=== PATIENT | male | born 1965 | race American Indian/Alaskan Native ===

== ENCOUNTER 2018-01-11 09:10 | Emergency (ER) | payer MEDICAID ==
[2018-01-11] MEDS ORDERED: NACL 0.9% 1000 ML 1,000 ML IV ONE (10:21)
--- NOTE | 2018-01-11 10:36 | Emergency Department Report ---
ED Dizziness HPI - General Chief Complaint: Dizziness Stated Complaint: FELL ON FACE YESTERDAY/GLF Time Seen by Provider: 01/11/18 09:54 Source: patient, EMS Mode of arrival: Stretcher Limitations: Physical Limitation - History of Present Illness Initial Comments: 52-year-old male with past medical history of diabetes hypertension history of previous stroke about 2 years ago got dizzy yesterday and fell and hit his face. Per patient he did not lose consciousness. Patient is under no acute distress. Patient states that he is dizzy at times. No alleviating or exacerbating factors. He states that he feels like his meds make him dizzy. Patient denies any nausea vomiting chest pain shortness of breath denies any fever or chills. MD Complaint: dizziness -: Gradual, week(s) Timing: gradual onset History of Same: Yes Severity: mild Improves With: nothing Worsens With: nothing Associated Symptoms: denies other symptoms - Related Data Home Medications Medication Instructions Recorded Confirmed Last Taken ALBUTEROL NEB's [Proventil] 2.5 mg IH TID PRN 02/07/16 02/07/16 Unknown Alendronate Sodium [Fosamax] 70 mg PO QWEEK 02/07/16 02/07/16 Unknown Aspirin [Aspirin BABY CHEW TAB] 81 mg PO QDAY 02/07/16 02/07/16 02/06/16 Atenolol [Tenormin] 100 mg PO DAILY 02/07/16 02/07/16 02/06/16 Citalopram Hydrobromide [celeXA] 20 mg PO DAILY 02/07/16 02/07/16 02/06/16 Docusate Sodium [Colace] 100 mg PO BID PRN 02/07/16 02/07/16 Unknown Lisinopril [Zestril TAB] 10 mg PO QDAY 02/07/16 02/07/16 02/06/16 Loratadine [Claritin] 10 mg PO DAILY 02/07/16 02/07/16 02/06/16 Metformin HCl [Glucophage] 850 mg PO BID 02/07/16 02/07/16 02/07/16 Omeprazole [PriLOSEC] 20 mg PO QDAY 02/07/16 02/07/16 02/06/16 Tamsulosin [Flomax] 0.4 mg PO QDAY 02/07/16 02/07/16 02/06/16 oxyCODONE /ACETAMINOPHEN [Percocet 1 tab PO Q6HR PRN 02/07/16 02/07/16 Unknown 5/325] Previous Rx's Medication Instructions Recorded Last Taken Type Ciprofloxacin HCl [Ciprofloxacin 500 mg PO Q12H #14 tab 02/07/16 Unknown Rx TAB] Meclizine [Antivert] 12.5 mg PO BID PRN #24 tablet 01/11/18 Unknown Rx Allergies Allergy/AdvReac Type Severity Reaction Status Date / Time No Known Allergies Allergy Unverified 02/07/16 02:00 ED Review of Systems ROS: Stated complaint: FELL ON FACE YESTERDAY/GLF Other details as noted in HPI Constitutional: denies: chills, fever Eyes: denies: eye pain, eye discharge, vision change ENT: denies: ear pain, throat pain Respiratory: denies: cough, shortness of breath, wheezing Cardiovascular: denies: chest pain, palpitations Endocrine: no symptoms reported Gastrointestinal: denies: abdominal pain, nausea, diarrhea Genitourinary: denies: urgency, dysuria Musculoskeletal: denies: back pain, joint swelling, arthralgia Skin: denies: rash, lesions Neurological: denies: headache, weakness, paresthesias Psychiatric: denies: anxiety, depression Hematological/Lymphatic: denies: easy bleeding, easy bruising ED Past Medical Hx - Past Medical History Hx Hypertension: Yes Hx CVA: Yes Hx Diabetes: Yes Hx COPD: Yes - Social History Smoking Status: Former Smoker - Medications Home Medications: Home Medications Medication Instructions Recorded Confirmed Last Taken Type ALBUTEROL NEB's [Proventil] 2.5 mg IH TID PRN 02/07/16 02/07/16 Unknown History Alendronate Sodium [Fosamax] 70 mg PO QWEEK 02/07/16 02/07/16 Unknown History Aspirin [Aspirin BABY CHEW TAB] 81 mg PO QDAY 02/07/16 02/07/16 02/06/16 History Atenolol [Tenormin] 100 mg PO DAILY 02/07/16 02/07/16 02/06/16 History Ciprofloxacin HCl [Ciprofloxacin 500 mg PO Q12H #14 tab 02/07/16 Unknown Rx TAB] Citalopram Hydrobromide [celeXA] 20 mg PO DAILY 02/07/16 02/07/16 02/06/16 History Docusate Sodium [Colace] 100 mg PO BID PRN 02/07/16 02/07/16 Unknown History Lisinopril [Zestril TAB] 10 mg PO QDAY 02/07/16 02/07/16 02/06/16 History Loratadine [Claritin] 10 mg PO DAILY 02/07/16 02/07/16 02/06/16 History Metformin HCl [Glucophage] 850 mg PO BID 02/07/16 02/07/16 02/07/16 History Omeprazole [PriLOSEC] 20 mg PO QDAY 02/07/16 02/07/16 02/06/16 History Tamsulosin [Flomax] 0.4 mg PO QDAY 02/07/16 02/07/16 02/06/16 History oxyCODONE /ACETAMINOPHEN [Percocet 1 tab PO Q6HR PRN 02/07/16 02/07/16 Unknown History 5/325] Meclizine [Antivert] 12.5 mg PO BID PRN #24 tablet 01/11/18 Unknown Rx ED Physical Exam - General Limitations: Physical Limitation General appearance: alert - Head Head exam: Present: atraumatic, normocephalic - Eye Eye exam: Present: normal appearance - ENT ENT exam: Present: normal exam - Neck Neck exam: Present: normal inspection - Respiratory Respiratory exam: Present: normal lung sounds bilaterally - Cardiovascular Cardiovascular Exam: Present: regular rate - GI/Abdominal GI/Abdominal exam: Present: soft - Rectal Rectal exam: Present: deferred - Extremities Exam Extremities exam: Present: normal inspection - Neurological Exam Neurological exam: Present: alert - Expanded Neurological Exam Expanded Patient oriented to: Present: person, place, time Speech: Present: fluid speech Cranial nerves: EOM's Intact: Normal, Gag Reflex: Normal, Tongue Deviation: Normal, Nystagmus: Normal, Facial Sensation: Normal, Facial Palsy with Forehead Movement: Normal, Facial Palsy without Forehead Movement: Normal Cerebellar function: Finger to Nose: Normal, Heel to Lauren: Normal, Romberg: Normal Motor strength exam: RUE: 5, LUE: 5, RLE: 5, LLE: 5 Best Eye Response (Bon): (4) open spontaneously Best Motor Response ([place]): (6) obeys commands Best Verbal Response ([place]): (5) oriented Bon Total: 15 - Psychiatric Psychiatric exam: Present: normal affect ED Course Vital Signs 01/11/18 01/11/18 01/11/18 09:33 09:53 10:09 Temperature 98.4 F Pulse Rate 64 64 Respiratory 19 19 Rate Blood Pressure 175/98 Blood Pressure 175/98 [Right] O2 Sat by Pulse 100 100 Oximetry 01/11/18 01/11/18 13:13 15:24 Temperature 98.1 F Pulse Rate 69 Respiratory 20 Rate Blood Pressure Blood Pressure 191/113 170/94 [Right] O2 Sat by Pulse 97 Oximetry 52-year-old male with past medical history for diabetes, hypertension, and with dizziness. Pts bloodwork is within normal limits. Patient's CT scan of the normal limits. Chest x-rays are normal limits. I called the hospitalist for admission for the patient and he will come and see the patient and make further disposition. Again I discussed with hospitalist. to admit the pt but he states he wants to send pt home and will discharge pt home. Pt was discharged by and not by me ED Medical Decision Making - Lab Data Result diagrams: 01/11/18 10:25 01/11/18 10:25 Critical care attestation.: If time is entered above; I have spent that time in minutes in the direct care of this critically ill patient, excluding procedure time. ED Disposition Clinical Impression: Dizziness Disposition: DC-01 TO HOME OR SELFCARE Is pt being admited?: No Does the pt Need Aspirin: No Condition: Stable Instructions: Dizziness (ED) Prescriptions: Meclizine [Antivert] 12.5 mg PO BID PRN #24 tablet PRN Reason: Vertigo Referrals: PRIMARY CARE, [Primary Care Provider] - 3-5 Days
--- NOTE | 2018-01-11 10:42 | XRay Report ---
AP CHEST: HISTORY: Syncope No comparison. AP view of the chest demonstrates a normal mediastinal and cardiac contour with clear lungs and normal bony and soft tissue structures. Ventriculoperitoneal shunt tubing is suspected descending the right thoracic soft tissues. IMPRESSION: Unremarkable AP chest.
[2018-01-11 10:45] LABS: Basophils # (Auto) 0.1 K/mm3 (0.0-0.1); Basophils % (Auto) 1.4 % (0.0-1.8); Eosinophils # (Auto) 0.3 K/mm3 (0.0-0.4); Eosinophils % (Auto) 6.1 % (0.0-4.3); Hematocrit 41.8 % (35.5-45.6); Hemoglobin 13.1 gm/dl (11.8-15.2); Lymphocytes # (Auto) 1.4 K/mm3 (1.2-5.4); Lymphocytes % (Auto) 29.1 % (13.4-35.0); Mean Corpuscular HGB Conc 31 % (32-34); Mean Corpuscular Hemoglobin 23 pg (28-32); Mean Corpuscular Volume 75 fl (84-94); Monocytes # (Auto) 0.4 K/mm3 (0.0-0.8); Monocytes % (Auto) 8.5 % (0.0-7.3); Platelet Count 174 K/mm3 (140-440); Red Blood Count 5.58 M/mm3 (3.65-5.03); Red Cell Distribution Width 16.5 % (13.2-15.2)
[2018-01-11 10:54] LABS: INR 0.93 (0.87-1.13)
[2018-01-11 10:55] LABS: Partial Thromboplastin Time 30.2 Sec. (24.2-36.6)
--- NOTE | 2018-01-11 11:08 | Cat Scan Report ---
CT HEAD WITHOUT CONTRAST: HISTORY: Fall, dizziness. TECHNIQUE: Sequential CT images without contrast. FINDINGS: No comparison. A right parietal ventriculoperitoneal shunt terminates in the posterior ventricular system near midline. No hydrocephalus is appreciated. Moderate chronic small vessel disease is noted in the white matter bilaterally. A small chronic cortical infarct in the anterior right frontal lobe measures 1.6 cm. A 2.8 cm chronic infarct in the lateral left cerebellar hemisphere is identified. Chronic 1.6 cm infarct is noted in the right thalamus. There is no evidence for hemorrhage, mass or extra-axial fluid collection. The calvarium is intact. The visualized sinuses and mastoid air cells are adequately aerated. IMPRESSION: No acute intracranial process identified. Nonspecific chronic white matter changes. Chronic infarcts in the right frontal lobe, left cerebellum and right thalamus as described.
--- NOTE | 2018-01-11 11:10 | Cat Scan Report ---
CT SCAN OF THE CERVICAL SPINE: HISTORY: Fall, injury. TECHNIQUE: Contiguous 1.25 mm axial images of the cervical spine were obtained. Sagittal and coronal reformatted images. FINDINGS: No comparison. Osteopenia is suspected. There is moderate multilevel degenerative disc disease, all levels are affected. The facet joints are in appropriate relationship. No hypertrophic changes. No evidence for displaced fracture, subluxation or bone lesion. The dens is intact. The prevertebral soft tissues are within normal limits. IMPRESSION: No acute process detected. Cervical spondylosis. Osteopenia.
[2018-01-11 11:11] LABS: Alanine Aminotransferase 8 units/L (7-56); Albumin 3.5 g/dL (3.9-5); BUN/Creatinine Ratio 10; Blood Urea Nitrogen 7 mg/dL (9-20); Calcium 8.9 mg/dL (8.4-10.2); Hemolysis Index 28
--- NOTE | 2018-01-11 11:14 | Cat Scan Report ---
CT FACIAL BONES WITHOUT CONTRAST: HISTORY: Fat, injury. TECHNIQUE: Helical CT images with sagittal and coronal CT reformations. FINDINGS: A subtle left nasal bone deformity is identified which presumably represents a chronic fracture. There is no overlying soft tissue swelling. The right nasal bone is normal. No sinus wall fracture, fluid level or opacification. The orbital cavities are symmetric and intact. The mandible is intact. The skull base and upper cervical spine demonstrate no evidence for acute injury. Mild mucosal thickening in the inferior maxillary sinuses is noted. IMPRESSION: Probable chronic left nasal bone fracture. No acute facial fracture detected. Mild chronic maxillary sinusitis.
[2018-01-11] MEDS ORDERED: ANTIVERT PO ONE (12:41)
--- NOTE | 2018-01-11 14:28 | Event Note ---
Date: 01/11/18 pATIENT EVALUATED for Dizziness No lateral medullary syndrome or signs and symptoms of Posterior cerebellar infarct. Has some residual weakness on rt side from previous CVA Dx Labrynthitis Meclizine 12.5 po bid F//u with pcp
[2018-01-11 15:24] VITALS: BP 170/94
== END 2018-01-11 17:55 | disposition home or self-care (01) ==
LOC: ED 09:10
DX: R42 Dizziness and giddiness (principal); I10 Essential (primary) hypertension; E11.9 Type 2 diabetes mellitus without complications; J44.9 Chronic obstructive pulmonary disease, unspecified; Z87.891 Personal history of nicotine dependence
CPT/HCPCS: 36415; 70450; 70486; 71045; 72125; 80053; 84484; 85025; 85610; 85730; 93005; 93010; 96360; 99285; J7030

== ENCOUNTER 2018-10-28 14:24 | Emergency (ER) | payer MEDICAID ==
--- NOTE | 2018-10-28 15:10 | Emergency Department Report ---
- General Chief complaint: Weakness Stated complaint: WEAKNESS Time Seen by Provider: 10/28/18 14:40 Source: EMS Mode of arrival: Stretcher Limitations: No Limitations - History of Present Illness Initial comments: patient is a 53-year-old male presents to emergency with complaints of weakness, and dizziness. Patient states that his symptoms started at 2 PM. Patient denies chest pain shortness of breath. Patient states his weakness generalized. Patient denies slurred speech and left or right-sided weakness. Patient states she had a stroke a few years back. Patient states he lives in a [facility]. Patient is a and O 2. Patient denies fever chills. Patient denies abdominal pain. MD Complaint: generalized weakness, lack of energy -: Sudden Location: generalized Severity: severe Consistency: constant Improves with: rest Worsens with: movement, exertion Associated Symptoms: denies: chest pain, confusion, dark stools, diaphoresis, dysuria, easy bruising, fever/chills, headaches, loss of appetite, nausea/vomiting, myalgias, rash, shortness of breath, syncope - Related Data Allergies Allergy/AdvReac Type Severity Reaction Status Date / Time Penicillins Allergy Unknown Verified 10/28/18 14:53 ED Review of Systems ROS: Stated complaint: WEAKNESS Other details as noted in HPI Constitutional: denies: chills, fever Eyes: denies: eye pain, eye discharge, vision change ENT: denies: ear pain, throat pain Respiratory: denies: cough, shortness of breath, wheezing Cardiovascular: denies: chest pain, palpitations Endocrine: no symptoms reported Gastrointestinal: denies: abdominal pain, nausea, diarrhea Genitourinary: denies: urgency, dysuria Musculoskeletal: denies: back pain, joint swelling, arthralgia Skin: denies: rash, lesions Neurological: weakness, vertigo. denies: headache, paresthesias Psychiatric: denies: anxiety, depression Hematological/Lymphatic: denies: easy bleeding, easy bruising ED Past Medical Hx - Past Medical History Previous Medical History?: Yes Hx Hypertension: Yes Hx CVA: Yes Hx Diabetes: Yes Hx GERD: Yes Hx COPD: Yes Additional medical history: shortness of breath, muscle weakness, abnormalities of gait and mobility, BPH - Surgical History Past Surgical History?: No - Family History Family history: no significant - Social History Smoking Status: Former Smoker Substance Use Type: None ED Physical Exam - General Limitations: No Limitations General appearance: alert, in no apparent distress - Head Head exam: Present: atraumatic, normocephalic - Eye Eye exam: Present: normal appearance - ENT ENT exam: Present: mucous membranes moist - Neck Neck exam: Present: normal inspection - Respiratory Respiratory exam: Present: normal lung sounds bilaterally. Absent: respiratory distress - Cardiovascular Cardiovascular Exam: Present: regular rate, normal rhythm. Absent: systolic murmur, diastolic murmur, rubs, gallop - GI/Abdominal GI/Abdominal exam: Present: soft, normal bowel sounds - Rectal Rectal exam: Present: deferred - Extremities Exam Extremities exam: Present: normal inspection - Back Exam Back exam: Present: normal inspection - Neurological Exam Neurological exam: Present: alert, altered (patient is a and O 2.), CN II-XII intact - Psychiatric Psychiatric exam: Present: normal affect, normal mood - Skin Skin exam: Present: warm, dry, intact, normal color. Absent: rash - Level of Consciousness 1a. Level of Consciousness: alert/keenly responsive - LOC Questions 1b. LOC Questions: answers both correctly - LOC Command 1c. LOC Commands: performs tasks correctly - Best Gaze 2. Best Gaze: normal - Visual 3. Visual: no visual loss - Facial Palsy 4. Facial Palsy: normal symmetrical movement - Motor Arm 5b. Motor Arm Right: no drift 5a. Motor Arm Left: no drift - Motor Leg 6b. Motor Leg Right: some gravity effort 6a. Motor Leg Left: some gravity effort - Limb Ataxia 7. Limb Ataxia: absent - Sensory 8. Sensory: normal - Best Language 9. Best Language: no aphasia - Dysarthria 10. Dysarthria: normal - Extinction and Inattention 11. Extinction/Inattention: no abnormality - Scoring Total Score: 4 Stroke Severity: Minor Stroke ED Course Vital Signs 10/28/18 10/28/18 10/28/18 14:24 14:38 14:45 Temperature 97.7 F Pulse Rate 48 L 51 L 48 L Respiratory 19 17 19 Rate Blood Pressure 125/84 125/84 O2 Sat by Pulse 96 96 96 Oximetry 10/28/18 10/28/18 10/28/18 15:00 15:15 15:39 Temperature Pulse Rate 47 L Respiratory 16 15 17 Rate Blood Pressure 150/83 135/87 143/83 O2 Sat by Pulse 95 97 98 Oximetry 10/28/18 10/28/18 10/28/18 15:45 16:00 16:15 Temperature Pulse Rate 45 L 48 L 47 L Respiratory 17 11 L 19 Rate Blood Pressure 160/85 163/94 163/94 O2 Sat by Pulse 97 98 Oximetry 10/28/18 10/28/18 10/28/18 16:31 16:45 16:58 Temperature Pulse Rate 46 L 48 L Respiratory 14 19 15 Rate Blood Pressure 151/85 151/85 O2 Sat by Pulse 97 96 99 Oximetry 10/28/18 10/28/18 10/28/18 17:01 17:15 17:31 Temperature Pulse Rate 50 L 48 L 47 L Respiratory 21 14 18 Rate Blood Pressure 151/85 151/85 151/85 O2 Sat by Pulse 98 97 99 Oximetry 10/28/18 10/28/18 10/28/18 17:45 18:01 18:15 Temperature Pulse Rate 56 L 50 L 59 L Respiratory 13 16 11 L Rate Blood Pressure 151/85 192/73 159/132 O2 Sat by Pulse 99 100 99 Oximetry 10/28/18 10/28/18 18:31 18:56 Temperature Pulse Rate 65 Respiratory 11 L Rate Blood Pressure 159/132 143/71 O2 Sat by Pulse 99 72 L Oximetry - Reevaluation(s) Reevaluation #1: Stroke protocol initiated. Patient will be sent to CT scan immediately. Will have nurse call [facility] for exact time of onset of symptoms. Patient states that his symptoms started at approximately 2 PM. Onset of symptoms verify with [facility]. Patient appears to be a poor historian and slightly altered 10/28/18 15:01 Neurology consultation done. 10/28/18 15:33 Discussed all results with patient. Patient to be admitted to the hospitalist service for further evaluation treatment. 10/28/18 17:08 10/28/18 17:11 - Consultations Consultation #1: Discussed case with Dr. Dozier. Dr. Dozier to see patient. 10/28/18 15:25 Dr. Dozier all patient wants patient to be admitted to the hospitalist for further evaluation and treatment. Patient will need further neurologic workup and MRI 10/28/18 16:09 Consultation #2: Hospitalist consulted for admission. Hospitalist to admit patient. 10/28/18 17:08 ED Medical Decision Making - Lab Data Result diagrams: 10/28/18 16:18 10/28/18 16:18 - EKG Data -: EKG Interpreted by Me EKG shows normal: sinus rhythm, axis, intervals, QRS complexes, ST-T waves Rate: bradycardia - Radiology Data Radiology results: report reviewed FINAL REPORT EXAM: CT HEAD/BRAIN WO CON HISTORY: Weakness TECHNIQUE: CT examination of the head without IV contrast PRIORS: None. FINDINGS: The the ventricular shunt in place with right occipital approach. Distal tip in posterior left lateral ventricle. Findings suggest chronic encephalomalacia and volume loss in the left cerebellar hemisphere may be old trauma or old infarct. Findings suggest additional chronic encephalomalacia and volume loss in the right frontal lobe, extending from the peripheral cortex to the frontal horn of the right lateral ventricle. This may reflect encephalomalacia at site of previous shunt placement. There is asso ciated adjacent small cortical defect in the right frontal calvarium. No acute air-fluid level visualized in the included air-filled sinuses. Bone windows demonstrate no acute fracture. There is ventricular and sulcal prominence compatible with global cerebrocortical atrophy. Low attenuation regions in the cerebral white matter, while nonspecific, are present and usually attributed to chronic ischemic gliosis. It can occur secondary to the normal aging process, hypertension, or arterial sclerotic vascular disease. The differential includes demyelination in the appropriate clinical setting. The brain contains no mass, mass effect, hemorrhage, or or definite CT evidence of acute infarct. There is no extra-axial intracranial bleed or brain bleed. There is no midline shift. IMPRESSION: No definite CT evidence of acute CVA, intracranial bleed, or brain mass Chronic appearing encephalomalacia and volume loss in the region of the left cerebellar hemisphere, right frontal lobe, and right posterior superior parietal lobe adjacent to the current right ventricular shunt - Medical Decision Making Patient is a 53-year-old mellitus weakness. Patient also found to have altered mental status. It is unclear if this patient's baseline but patient will be admitted to the hospitalist service for further evaluation treatment. Neurology consultation and wants patient admitted for further neurologic workup and MRI. Patient agrees and family agrees with plan of care. Patient's labs unremarkable except for hyperkalemia and abnormal chemistry. Initial cardiac work up was negative. EKG negative. - Differential Diagnosis altered mental status. Weakness. Dizziness. Critical Care Time: Yes Critical care attestation.: If time is entered above; I have spent that time in minutes in the direct care of this critically ill patient, excluding procedure time. Critical Care Time: 45 minutes ED Disposition Clinical Impression: Weakness, Dizziness, Hyperkalemia Altered mental state Qualifiers: Altered mental status type: unspecified Qualified Code(s): R41.82 - Altered mental status, unspecified Disposition: DC-09 OP ADMIT IP TO THIS HOSP Is pt being admited?: Yes Does the pt Need Aspirin: No Condition: Critical Time of Disposition: 17:11
--- NOTE | 2018-10-28 15:40 | Cat Scan Report ---
FINAL REPORT EXAM: CT HEAD/BRAIN WO CON HISTORY: Weakness TECHNIQUE: CT examination of the head without IV contrast PRIORS: None. FINDINGS: The the ventricular shunt in place with right occipital approach. Distal tip in posterior left latera l ventricle. Findings suggest chronic encephalomalacia and volume loss in the left cerebellar hemisphere may be ol d trauma or old infarct. Findings suggest additional chronic encephalomalacia and volume loss in the right frontal lobe, exten ding from the peripheral cortex to the frontal horn of the right lateral ventricle. This may reflect encephalomalacia at site of previous shunt placement. There is associated adjacent small cortical def ect in the right frontal calvarium. No acute air-fluid level visualized in the included air-filled sinuses. Bone windows demonstrate no acute fracture. There is ventricular and sulcal prominence compatible with global cerebrocortical atrophy. Low attenuation regions in the cerebral white matter, while nonspecific, are present and usually attr ibuted to chronic ischemic gliosis. It can occur secondary to the normal aging process, hypertension, or arterial sclerotic vascular disease. The differential includes demyelination in the appropriate c linical setting. The brain contains no mass, mass effect, hemorrhage, or or definite CT evidence of acute infarct. The re is no extra-axial intracranial bleed or brain bleed. There is no midline shift. IMPRESSION: No definite CT evidence of acute CVA, intracranial bleed, or brain mass Chronic appearing encephalomalacia and volume loss in the region of the left cerebellar hemisphere, r ight frontal lobe, and right posterior superior parietal lobe adjacent to the current right ventricul ar shunt
[2018-10-28 16:31] LABS: Basophils # (Auto) 0.1 K/mm3 (0.0-0.1); Basophils % (Auto) 2.1 % (0.0-1.8); Eosinophils # (Auto) 0.4 K/mm3 (0.0-0.4); Eosinophils % (Auto) 7.1 % (0.0-4.3); Hematocrit 45.4 % (35.5-45.6); Hemoglobin 14.7 gm/dl (11.8-15.2); Lymphocytes # (Auto) 1.9 K/mm3 (1.2-5.4); Lymphocytes % (Auto) 35.6 % (13.4-35.0); Mean Corpuscular HGB Conc 32 % (32-34); Mean Corpuscular Volume 76 fl (84-94); Monocytes # (Auto) 0.5 K/mm3 (0.0-0.8); Monocytes % (Auto) 9.8 % (0.0-7.3); Platelet Count 205 K/mm3 (140-440); Red Blood Count 5.97 M/mm3 (3.65-5.03); Red Cell Distribution Width 17.1 % (13.2-15.2)
[2018-10-28 16:52] LABS: Albumin 4.1 g/dL (3.9-5); BUN/Creatinine Ratio 15; Blood Urea Nitrogen 9 mg/dL (9-20); Calcium 9.3 mg/dL (8.4-10.2); Hemolysis Index 212
[2018-10-28 16:56] LABS: Alanine Aminotransferase 9 units/L (7-56)
[2018-10-28 16:58] LABS: Amorphous Crystals,Urine Few; Bilirubin,Urine NEG (Negative); Blood,Urine NEG (Negative); Color,Urine Yellow (Yellow); Mucus,Urine FEW /HPF; Protein,Urine <15 mg/dL mg/dL (Negative)
--- NOTE | 2018-10-28 19:13 | Event Note ---
Date: 10/28/18 Patient complains of generalized weakness and dizziness. Patient evaluated in the emergency room Patient sitting on the bed and eating Carrying a normal conversation. Power normal in all 4 extremities Allergies and oriented 4 Potassium 5.8 Treated in the emergency room Kayexalate given Calcium gluconate given Discharge back to [facility] Discharge diagnoses hyperkalemia
[2018-10-28] MEDS ORDERED: KIONEX PO ONE (19:14)
[2018-10-28] MEDS ORDERED: CALCIUM GLUCONATE 2,000 MG in NACL 0.9% 100 ML IV ONE (19:14)
[2018-10-28 21:20] VITALS: BP 149/88
== END 2018-10-28 21:54 | disposition admitted as inpatient to this hospital (09) ==
LOC: MERGE 14:24 → ED 14:24
DX: E87.5 Hyperkalemia (principal); R41.82 Altered mental status, unspecified; R42 Dizziness and giddiness; I10 Essential (primary) hypertension; E11.9 Type 2 diabetes mellitus without complications; J44.9 Chronic obstructive pulmonary disease, unspecified; K21.9 Gastro-esophageal reflux disease without esophagitis; Z87.891 Personal history of nicotine dependence; Z86.73 Personal history of transient ischemic attack (TIA), and cerebral infarction without residual deficits; Z88.0 Allergy status to penicillin
CPT/HCPCS: 36415; 70450; 80053; 81001; 84484; 85025; 93005; 93010; 96374; 99291; J0610

== ENCOUNTER 2018-12-02 08:40 | Emergency (ER) | payer MEDICAID ==
--- NOTE | 2018-12-02 10:59 | Emergency Department Report ---
ED General Adult HPI - General Chief complaint: Fall Stated complaint: FELL/LACERATION Time Seen by Provider: 12/02/18 10:50 Source: EMS Mode of arrival: Stretcher Limitations: No Limitations - History of Present Illness Initial comments: Patient presents to the emergency department from a local nursing for a fall but it was unwitnessed by staff so they are not sure if he fell are not. Supposedly the patient denies having loss of consciousness. The patient has Alzheimer's and is difficult to obtain a history from -: Sudden Location: head, neck Severity scale (0 -10): 0 Improves with: none Worsens with: none Associated Symptoms: denies other symptoms Treatments Prior to Arrival: none - Related Data Home Medications Medication Instructions Recorded Confirmed Last Taken ALBUTEROL NEB's [Proventil] 2.5 mg IH TID PRN 02/07/16 02/07/16 Unknown Alendronate Sodium [Fosamax] 70 mg PO QWEEK 02/07/16 02/07/16 Unknown Aspirin [Aspirin BABY CHEW TAB] 81 mg PO QDAY 02/07/16 02/07/16 02/06/16 Atenolol [Tenormin] 100 mg PO DAILY 02/07/16 02/07/16 02/06/16 Citalopram Hydrobromide [celeXA] 20 mg PO DAILY 02/07/16 02/07/16 02/06/16 Docusate Sodium [Colace] 100 mg PO BID PRN 02/07/16 02/07/16 Unknown Lisinopril [Zestril TAB] 10 mg PO QDAY 02/07/16 02/07/16 02/06/16 Loratadine [Claritin] 10 mg PO DAILY 02/07/16 02/07/16 02/06/16 Metformin HCl [Glucophage] 850 mg PO BID 02/07/16 02/07/16 02/07/16 Omeprazole [PriLOSEC] 20 mg PO QDAY 02/07/16 02/07/16 02/06/16 Tamsulosin [Flomax] 0.4 mg PO QDAY 02/07/16 02/07/16 02/06/16 oxyCODONE /ACETAMINOPHEN [Percocet 1 tab PO Q6HR PRN 02/07/16 02/07/16 Unknown 5/325] Previous Rx's Medication Instructions Recorded Last Taken Type Ciprofloxacin HCl [Ciprofloxacin 500 mg PO Q12H #14 tab 02/07/16 Unknown Rx TAB] Meclizine [Antivert] 12.5 mg PO BID PRN #24 tablet 01/11/18 Unknown Rx Allergies Allergy/AdvReac Type Severity Reaction Status Date / Time No Known Allergies Allergy Unverified 02/07/16 02:00 ED Review of Systems ROS: Stated complaint: FELL/LACERATION Other details as noted in HPI Comment: All other systems reviewed and negative Constitutional: denies: chills, fever Eyes: denies: eye pain, eye discharge, vision change ENT: denies: ear pain, throat pain Respiratory: denies: cough, shortness of breath, wheezing Cardiovascular: denies: chest pain, palpitations Endocrine: no symptoms reported Gastrointestinal: denies: abdominal pain, nausea, diarrhea Genitourinary: denies: urgency, dysuria Musculoskeletal: denies: back pain, joint swelling, arthralgia Skin: denies: rash, lesions Neurological: denies: headache, weakness, paresthesias Psychiatric: denies: anxiety, depression Hematological/Lymphatic: denies: easy bleeding, easy bruising ED Past Medical Hx - Past Medical History Hx Hypertension: Yes Hx CVA: Yes Hx Diabetes: Yes Hx COPD: Yes - Social History Smoking Status: Unknown if ever smoked Substance Use Type: None - Medications Home Medications: Home Medications Medication Instructions Recorded Confirmed Last Taken Type ALBUTEROL NEB's [Proventil] 2.5 mg IH TID PRN 02/07/16 02/07/16 Unknown History Alendronate Sodium [Fosamax] 70 mg PO QWEEK 02/07/16 02/07/16 Unknown History Aspirin [Aspirin BABY CHEW TAB] 81 mg PO QDAY 02/07/16 02/07/16 02/06/16 History Atenolol [Tenormin] 100 mg PO DAILY 02/07/16 02/07/16 02/06/16 History Ciprofloxacin HCl [Ciprofloxacin 500 mg PO Q12H #14 tab 02/07/16 Unknown Rx TAB] Citalopram Hydrobromide [celeXA] 20 mg PO DAILY 02/07/16 02/07/16 02/06/16 History Docusate Sodium [Colace] 100 mg PO BID PRN 02/07/16 02/07/16 Unknown History Lisinopril [Zestril TAB] 10 mg PO QDAY 02/07/16 02/07/16 02/06/16 History Loratadine [Claritin] 10 mg PO DAILY 02/07/16 02/07/16 02/06/16 History Metformin HCl [Glucophage] 850 mg PO BID 02/07/16 02/07/16 02/07/16 History Omeprazole [PriLOSEC] 20 mg PO QDAY 02/07/16 02/07/16 02/06/16 History Tamsulosin [Flomax] 0.4 mg PO QDAY 02/07/16 02/07/16 02/06/16 History oxyCODONE /ACETAMINOPHEN [Percocet 1 tab PO Q6HR PRN 02/07/16 02/07/16 Unknown History 5/325] Meclizine [Antivert] 12.5 mg PO BID PRN #24 tablet 01/11/18 Unknown Rx ED Physical Exam - General Limitations: No Limitations General appearance: alert, in no apparent distress - Head Head exam: Present: normocephalic, other (centimeter laceration to the supra orbital left region) - Eye Eye exam: Present: normal appearance, PERRL, EOMI - ENT ENT exam: Present: mucous membranes moist - Neck Neck exam: Present: other (midline C-spine tenderness to palpation) - Respiratory Respiratory exam: Present: normal lung sounds bilaterally. Absent: respiratory distress, wheezes, rales - Cardiovascular Cardiovascular Exam: Present: regular rate, normal rhythm. Absent: systolic murmur, diastolic murmur, rubs, gallop - GI/Abdominal GI/Abdominal exam: Present: soft, normal bowel sounds. Absent: distended, tenderness - Rectal Rectal exam: Present: deferred - Extremities Exam Extremities exam: Present: normal inspection - Back Exam Back exam: Present: normal inspection - Neurological Exam Neurological exam: Present: alert, oriented X3, CN II-XII intact. Absent: motor sensory deficit - Psychiatric Psychiatric exam: Present: normal affect, normal mood - Skin Skin exam: Present: warm, dry, intact, normal color. Absent: rash ED Course Vital Signs 12/02/18 12/02/18 12/02/18 08:59 09:00 09:04 Temperature 98.2 F Pulse Rate 61 Respiratory 16 Rate Blood Pressure 200/109 200/109 Blood Pressure 200/109 [Right] O2 Sat by Pulse 96 96 96 Oximetry 12/02/18 12/02/18 12/02/18 09:16 09:30 09:46 Temperature Pulse Rate Respiratory Rate Blood Pressure 200/109 200/109 199/100 Blood Pressure [Right] O2 Sat by Pulse 96 98 98 Oximetry 12/02/18 12/02/18 12/02/18 10:00 10:16 10:30 Temperature Pulse Rate Respiratory Rate Blood Pressure 199/100 169/106 169/106 Blood Pressure [Right] O2 Sat by Pulse 98 99 99 Oximetry 12/02/18 12/02/18 12/02/18 10:46 11:00 11:16 Temperature Pulse Rate Respiratory Rate Blood Pressure 169/106 169/106 186/91 Blood Pressure [Right] O2 Sat by Pulse 99 99 100 Oximetry 12/02/18 12/02/18 12/02/18 11:30 11:50 12:00 Temperature Pulse Rate 62 Respiratory 15 Rate Blood Pressure 186/91 169/106 194/102 Blood Pressure [Right] O2 Sat by Pulse 99 100 99 Oximetry 12/02/18 12:16 Temperature Pulse Rate 55 L Respiratory 13 Rate Blood Pressure 181/104 Blood Pressure [Right] O2 Sat by Pulse 100 Oximetry - Laceration /Wound Repair Left Head Wound Location: face Wound Length (cm): 3 Wound's Depth, Shape: superficial Wound Explored: no foreign body removed Irrigated w/ Saline (ccs): 100 Betadine Prep?: Yes Wound Repaired With: Dermabond Layer Closure?: No Sterile Dressing Applied?: Yes ED Medical Decision Making - Radiology Data Radiology results: report reviewed - Medical Decision Making Patient will be transferred to [facility] Initially they contacted the trauma then neurointensive and finally the emergency physician who accepted the patient( Dr. Dobbins) Critical Care Time: Yes Critical care time in (mins) excluding proc time.: 35 Critical care attestation.: If time is entered above; I have spent that time in minutes in the direct care of this critically ill patient, excluding procedure time. ED Disposition Clinical Impression: Basal ganglia hemorrhage Disposition: DC/TX-70 ANOTHER TYPE HLTHCARE Is pt being admited?: No Does the pt Need Aspirin: No Condition: Fair Referrals: RAISA POE MD [Primary Care Provider] - 3-5 Days
--- NOTE | 2018-12-02 12:01 | Cat Scan Report ---
CT scan of head without IV contrast: History: Head injury. Findings: There is left basal ganglia hematoma noted measuring 2.48 x 1 cm. Midline shift of 5 mm. No extra-axial fluid collection. No intraventricular hemorrhage. Periventricular area of low attenuation. Shunt in the right lateral ventricle. Impression: Left basal ganglia hematoma. Dr. Selwyn khalil was informed of the findings at 12:01 PM on 12/02/18. 98N
--- NOTE | 2018-12-02 12:04 | Cat Scan Report ---
CT scan of cervical spine: History: Neck pain. Findings: Normal height of vertebral bodies. Decrease in height of C2-C3, C4-C5, C5-C6 and C6-C7. Sclerotic adjacent articular surfaces with peripheral osteophytes suggestive of moderate to severe cervical spondylosis. Normal prevertebral soft tissue. No definite bony central canal spinal stenosis or significant bilateral bony neural foramina stenosis. No evidence of acute fracture. Impression: Moderate to severe cervical spondylosis.
[2018-12-02 12:20] VITALS: BP 181/104
== END 2018-12-02 14:20 | disposition other institution (70) ==
LOC: ED 08:40
DX: S06.369A Traumatic hemorrhage of cerebrum, unspecified, with loss of consciousness of unspecified duration, initial encounter (principal); S05.42XA Penetrating wound of orbit with or without foreign body, left eye, initial encounter; I10 Essential (primary) hypertension; E11.9 Type 2 diabetes mellitus without complications; J44.9 Chronic obstructive pulmonary disease, unspecified; Z86.73 Personal history of transient ischemic attack (TIA), and cerebral infarction without residual deficits; W18.30XA Fall on same level, unspecified, initial encounter; Y93.89 Activity, other specified; Y92.89 Other specified places as the place of occurrence of the external cause; Y99.8 Other external cause status
CPT/HCPCS: 70450; 72125

== ENCOUNTER 2018-12-16 18:36 | Emergency (ER) | payer MEDICAID ==
--- NOTE | 2018-12-16 20:12 | Emergency Department Report ---
ED General Adult HPI - General Chief complaint: Laceration/Recheck/Suture Stated complaint: LACERATION TO LEFT EYE Time Seen by Provider: 12/16/18 20:09 Source: patient Mode of arrival: Stretcher Limitations: No Limitations - History of Present Illness Initial comments: 53-year-old male with a history of CVA, COPD who [facility] presents after having a fall. According to EMS patient suffered a fall from a chair. EMS states unknown LOC. EMS states injury occurred 1 hour prior to arrival. Patient noted to have ecchymosis of the left infraorbital region. Patient is oriented to person as well as to place only. Otherwise patient has no other complaints. Severity scale (0 -10): 0 - Related Data Home Medications Medication Instructions Recorded Confirmed Last Taken ALBUTEROL NEB's [Proventil] 2.5 mg IH TID PRN 02/07/16 02/07/16 Unknown Alendronate Sodium [Fosamax] 70 mg PO QWEEK 02/07/16 02/07/16 Unknown Aspirin [Aspirin BABY CHEW TAB] 81 mg PO QDAY 02/07/16 02/07/16 02/06/16 Atenolol [Tenormin] 100 mg PO DAILY 02/07/16 02/07/16 02/06/16 Citalopram Hydrobromide [celeXA] 20 mg PO DAILY 02/07/16 02/07/16 02/06/16 Docusate Sodium [Colace] 100 mg PO BID PRN 02/07/16 02/07/16 Unknown Lisinopril [Zestril TAB] 10 mg PO QDAY 02/07/16 02/07/16 02/06/16 Loratadine [Claritin] 10 mg PO DAILY 02/07/16 02/07/16 02/06/16 Metformin HCl [Glucophage] 850 mg PO BID 02/07/16 02/07/16 02/07/16 Omeprazole [PriLOSEC] 20 mg PO QDAY 02/07/16 02/07/16 02/06/16 Tamsulosin [Flomax] 0.4 mg PO QDAY 02/07/16 02/07/16 02/06/16 oxyCODONE /ACETAMINOPHEN [Percocet 1 tab PO Q6HR PRN 02/07/16 02/07/16 Unknown 5/325] Previous Rx's Medication Instructions Recorded Last Taken Type Ciprofloxacin HCl [Ciprofloxacin 500 mg PO Q12H #14 tab 02/07/16 Unknown Rx TAB] Meclizine [Antivert] 12.5 mg PO BID PRN #24 tablet 01/11/18 Unknown Rx Allergies Allergy/AdvReac Type Severity Reaction Status Date / Time No Known Allergies Allergy Unverified 02/07/16 02:00 ED Review of Systems ROS: Stated complaint: LACERATION TO LEFT EYE Other details as noted in HPI Comment: Unobtainable due to pts medical conditions Constitutional: denies: chills, fever Eyes: denies: eye pain, eye discharge, vision change ENT: denies: ear pain, throat pain Respiratory: denies: cough, shortness of breath, wheezing Cardiovascular: denies: chest pain, palpitations Endocrine: no symptoms reported Gastrointestinal: denies: abdominal pain, nausea, diarrhea Genitourinary: denies: urgency, dysuria Musculoskeletal: denies: back pain, joint swelling, arthralgia Skin: other (laceration) Neurological: denies: headache, weakness, paresthesias Psychiatric: denies: anxiety, depression Hematological/Lymphatic: denies: easy bleeding, easy bruising ED Past Medical Hx - Past Medical History Previous Medical History?: Yes Hx Hypertension: Yes Hx CVA: Yes Hx Diabetes: Yes Hx COPD: Yes - Surgical History Past Surgical History?: No - Social History Smoking Status: Unknown if ever smoked - Medications Home Medications: Home Medications Medication Instructions Recorded Confirmed Last Taken Type ALBUTEROL NEB's [Proventil] 2.5 mg IH TID PRN 02/07/16 02/07/16 Unknown History Alendronate Sodium [Fosamax] 70 mg PO QWEEK 02/07/16 02/07/16 Unknown History Aspirin [Aspirin BABY CHEW TAB] 81 mg PO QDAY 02/07/16 02/07/16 02/06/16 History Atenolol [Tenormin] 100 mg PO DAILY 02/07/16 02/07/16 02/06/16 History Ciprofloxacin HCl [Ciprofloxacin 500 mg PO Q12H #14 tab 02/07/16 Unknown Rx TAB] Citalopram Hydrobromide [celeXA] 20 mg PO DAILY 02/07/16 02/07/16 02/06/16 History Docusate Sodium [Colace] 100 mg PO BID PRN 02/07/16 02/07/16 Unknown History Lisinopril [Zestril TAB] 10 mg PO QDAY 02/07/16 02/07/16 02/06/16 History Loratadine [Claritin] 10 mg PO DAILY 02/07/16 02/07/16 02/06/16 History Metformin HCl [Glucophage] 850 mg PO BID 02/07/16 02/07/16 02/07/16 History Omeprazole [PriLOSEC] 20 mg PO QDAY 02/07/16 02/07/16 02/06/16 History Tamsulosin [Flomax] 0.4 mg PO QDAY 02/07/16 02/07/16 02/06/16 History oxyCODONE /ACETAMINOPHEN [Percocet 1 tab PO Q6HR PRN 02/07/16 02/07/16 Unknown History 5/325] Meclizine [Antivert] 12.5 mg PO BID PRN #24 tablet 01/11/18 Unknown Rx ED Physical Exam - General Limitations: No Limitations General appearance: alert, in no apparent distress - Head Head exam: Present: normocephalic, other (no obvious scalp lacerations or hematoma; laceration noted in the left supraorbital region) - Eye Eye exam: Present: normal appearance, other (ecchymosis noted to the left infraorbital region) - ENT ENT exam: Present: mucous membranes dry - Neck Neck exam: Present: normal inspection - Respiratory Respiratory exam: Present: normal lung sounds bilaterally. Absent: respiratory distress - Cardiovascular Cardiovascular Exam: Present: regular rate, normal rhythm. Absent: systolic murmur, diastolic murmur, rubs, gallop - GI/Abdominal GI/Abdominal exam: Present: soft, normal bowel sounds - Rectal Rectal exam: Present: deferred - Extremities Exam Extremities exam: Present: normal inspection - Back Exam Back exam: Present: normal inspection - Neurological Exam Neurological exam: Present: alert, CN II-XII intact, other (patient is oriented to person and place but not to time). Absent: motor sensory deficit - Psychiatric Psychiatric exam: Present: normal affect, normal mood - Skin Skin exam: Present: warm, dry, intact, normal color. Absent: rash ED Course Vital Signs 12/16/18 12/16/18 19:36 23:33 Temperature 97.4 F L 97.3 F L Pulse Rate 91 H 79 Respiratory 16 16 Rate Blood Pressure 115/81 Blood Pressure 124/88 [Left] O2 Sat by Pulse 98 100 Oximetry - Laceration /Wound Repair Left Face Wound Location: face Wound Length (cm): 3 Wound's Depth, Shape: superficial Wound Repaired With: Dermabond ED Medical Decision Making - Medical Decision Making Laceration was closed using Dermabond therapy at the wound was irrigated. - Differential Diagnosis laceration; contusion; intracranial bleed; Critical care attestation.: If time is entered above; I have spent that time in minutes in the direct care of this critically ill patient, excluding procedure time. ED Disposition Clinical Impression: Facial laceration, Periorbital contusion Disposition: DC- TO HOME OR SELFCARE Is pt being admited?: No Does the pt Need Aspirin: No Condition: Stable Instructions: Fall Prevention for Older Adults (ED), Skin Adhesive Care (ED) Referrals: PRIMARY CARE, [Primary Care Provider] - 3-5 Days Time of Disposition: 23:52 Print Language: MAORI
--- NOTE | 2018-12-16 22:05 | Cat Scan Report ---
PROCEDURE: CT FACIAL BONES WO CON TECHNIQUE: HISTORY: fall with neck pain COMPARISONS: None FINDINGS: Bilateral globes intact. No air in either orbit. No air-fluid levels in the maxillary sinuses. Floors of the orbits intact. No entrapment. No sinus disease. TMJs well aligned. No definite acute displaced fracture. Multiple cavities dental consultation may be helpful Prominent lymph nodes noted in the submandibular region of uncertain etiology IMPRESSION: No definite acute displaced fracture. Prominent lymph nodes noted in the submandibular region of uncertain etiology This document is electronically signed by Lino Turner MD., December 16 2018 10:02:38 PM ET
--- NOTE | 2018-12-16 22:27 | Cat Scan Report ---
PROCEDURE: CT CERVICAL SPINE WO CON TECHNIQUE: CT images of the cervical spine were obtained without the use of IV contrast HISTORY: fall with neck pain COMPARISONS: FINDINGS: The vertebral body heights and alignment are maintained. There are osteoarthritic changes of the atla ntodental articulation. There are degenerative disc changes throughout, with disc space narrowing and osteophyte formation. No acute fracture or subluxation is seen. IMPRESSION: No acute fracture or subluxation. This document is electronically signed by Ashley Ponce MD., December 16 2018 10:24:56 PM ET
--- NOTE | 2018-12-16 23:08 | Cat Scan Report ---
PROCEDURE: CT HEAD/BRAIN WO CON TECHNIQUE: CT images of the brain were obtained without the use of IV contrast HISTORY: fall with neck pain COMPARISONS: 12/02/2018 FINDINGS: Previously seen left basal ganglia hemorrhage has resolved. There is continued underlying parenchymal edema however, with mass effect on the left lateral ventricle. There is a right parietal shunt, with tip in the left lateral ventricle. No hydrocephalus. No acute hemorrhage is seen. There is white mat ter low attenuation, compatible with chronic microvascular ischemic changes. Calvarium is intact. The visualized paranasal sinuses and mastoids are aerated IMPRESSION: No acute hemorrhage is seen. Previously seen left basal ganglia hemorrhage has resolved. However ther e is continued underlying parenchymal edema. Follow-up CT could be obtained to ensure resolution of t he edema and exclude underlying mass. This document is electronically signed by Ashley Ponce MD., December 16 2018 11:05:57 PM ET
[2018-12-16 23:34] VITALS: BP 124/88
== END 2018-12-17 01:21 | disposition home or self-care (01) ==
LOC: ED 18:36
DX: S01.81XA Laceration without foreign body of other part of head, initial encounter (principal); S05.10XA Contusion of eyeball and orbital tissues, unspecified eye, initial encounter; I10 Essential (primary) hypertension; Z86.73 Personal history of transient ischemic attack (TIA), and cerebral infarction without residual deficits; E11.9 Type 2 diabetes mellitus without complications; J44.9 Chronic obstructive pulmonary disease, unspecified; Z79.84 Long term (current) use of oral hypoglycemic drugs; W07.XXXA Fall from chair, initial encounter; Y93.89 Activity, other specified; Y92.89 Other specified places as the place of occurrence of the external cause; Y99.8 Other external cause status
CPT/HCPCS: 70450; 70486; 72125

== ENCOUNTER 2019-01-25 12:24 | Inpatient (IN) | payer MEDICAID ==
[2019-01-25 13:49] LABS: Basophils # (Auto) 0.1 K/mm3 (0.0-0.1); Basophils % (Auto) 0.5 % (0.0-1.8); Eosinophils # (Auto) 0.2 K/mm3 (0.0-0.4); Eosinophils % (Auto) 1.3 % (0.0-4.3); Lymphocytes # (Auto) 1.2 K/mm3 (1.2-5.4); Lymphocytes % (Auto) 10.4 % (13.4-35.0); Mean Corpuscular HGB Conc 31 % (32-34); Mean Corpuscular Volume 80 fl (84-94); Monocytes # (Auto) 1.1 K/mm3 (0.0-0.8); Monocytes % (Auto) 9.3 % (0.0-7.3); Platelet Count 224 K/mm3 (140-440); Red Cell Distribution Width 18.1 % (13.2-15.2)
[2019-01-25 13:54] LABS: Hematocrit 47.7 % (35.5-45.6); Hemoglobin 14.7 gm/dl (11.8-15.2)
--- NOTE | 2019-01-25 14:03 | Emergency Department Report ---
HPI - General Chief Complaint: Altered Mental Status Time Seen by Provider: 01/25/19 13:18 - HPI HPI: Room 10 The patient is a 53-year-old male presenting with a chief complaint of altered mental status. The patient is a resident at [facility] staff state for the past 3 days the patient has had a declining mental status. The patient is normally alert and talkative. This morning patient had decreased responsiveness and was lethargic by lunch. They state the patient would not follow simple commands so the patient was sent to the ED for further evaluation. retirement staff report patient has had decreased po over the last few days. The patient appears lethargic and does not answer questions intelligibly Location: Mental state Duration: Days Quality: Altered Severity: Moderate Modifying factors: [see above] Context: [see above] Mode of transportation: [not driving] ED Past Medical Hx - Past Medical History Hx Hypertension: Yes Hx CVA: Yes Hx Diabetes: Yes Hx COPD: Yes - Surgical History Past Surgical History?: No - Family History Family history: no significant - Social History Smoking Status: Unknown if ever smoked - Medications Home Medications: Home Medications Medication Instructions Recorded Confirmed Last Taken Type ALBUTEROL NEB's [Proventil] 2.5 mg IH TID PRN 02/07/16 02/07/16 Unknown History Alendronate Sodium [Fosamax] 70 mg PO QWEEK 02/07/16 02/07/16 Unknown History Aspirin [Aspirin BABY CHEW TAB] 81 mg PO QDAY 02/07/16 02/07/16 02/06/16 History Atenolol [Tenormin] 100 mg PO DAILY 02/07/16 02/07/16 02/06/16 History Ciprofloxacin HCl [Ciprofloxacin 500 mg PO Q12H #14 tab 02/07/16 Unknown Rx TAB] Citalopram Hydrobromide [celeXA] 20 mg PO DAILY 02/07/16 02/07/16 02/06/16 History Docusate Sodium [Colace] 100 mg PO BID PRN 02/07/16 02/07/16 Unknown History Lisinopril [Zestril TAB] 10 mg PO QDAY 02/07/16 02/07/16 02/06/16 History Loratadine [Claritin] 10 mg PO DAILY 02/07/16 02/07/16 02/06/16 History Metformin HCl [Glucophage] 850 mg PO BID 02/07/16 02/07/16 02/07/16 History Omeprazole [PriLOSEC] 20 mg PO QDAY 02/07/16 02/07/16 02/06/16 History Tamsulosin [Flomax] 0.4 mg PO QDAY 02/07/16 02/07/16 02/06/16 History oxyCODONE /ACETAMINOPHEN [Percocet 1 tab PO Q6HR PRN 02/07/16 02/07/16 Unknown History 5/325] Meclizine [Antivert] 12.5 mg PO BID PRN #24 tablet 01/11/18 Unknown Rx ED Review of Systems ROS: Stated complaint: ALTERED Other details as noted in HPI Comment: Unobtainable due to pts medical conditions Physical Exam - Physical Exam Vital Signs: Vital Signs 01/25/19 13:21 Temperature 97.4 F L Pulse Rate 104 H Respiratory 23 Rate Blood Pressure 79/48 [Left] O2 Sat by Pulse 100 Oximetry Vital Signs 01/25/19 01/25/19 01/25/19 12:50 13:00 13:16 Temperature Pulse Rate 123 H 119 H 106 H Respiratory 25 H 17 Rate Blood Pressure 84/42 80/44 Blood Pressure [Left] O2 Sat by Pulse 91 97 Oximetry 01/25/19 01/25/19 01/25/19 13:21 13:30 13:45 Temperature 97.4 F L Pulse Rate 104 H 103 H 103 H Respiratory 23 22 19 Rate Blood Pressure 78/51 89/55 Blood Pressure 79/48 [Left] O2 Sat by Pulse 100 92 92 Oximetry 01/25/19 01/25/19 01/25/19 14:00 14:15 14:30 Temperature Pulse Rate 99 H 101 H 97 H Respiratory 26 H 21 13 Rate Blood Pressure 89/55 93/55 93/55 Blood Pressure [Left] O2 Sat by Pulse 95 92 92 Oximetry 01/25/19 01/25/19 01/25/19 14:46 15:00 15:15 Temperature Pulse Rate 99 H 95 H 92 H Respiratory 18 20 15 Rate Blood Pressure 100/58 84/55 102/57 Blood Pressure [Left] O2 Sat by Pulse 96 95 Oximetry 01/25/19 15:34 Temperature Pulse Rate Respiratory Rate Blood Pressure 102/57 Blood Pressure [Left] O2 Sat by Pulse Oximetry Physical Exam: GENERAL: The patient is well-developed well-nourished []. [] HEENT: Normocephalic. Atraumatic. Extraocular motions are intact. Patient has moist mucous membranes. NECK: Supple. Trachea midline CHEST/LUNGS: Clear to auscultation. There is no respiratory distress noted. HEART/CARDIOVASCULAR: Regular. There is no tachycardia. There is no gallop rub or murmur. ABDOMEN: Abdomen is soft, nontender. Patient has normal bowel sounds. There is no abdominal distention. SKIN: There is no rash. There is no edema. There is no diaphoresis. NEURO: The patient is lethargic and does not answer questions intelligibly. The patient is not cooperative with a neurologic exam. The patient has no focal neurologic deficits. The patient has normal speech and gait. MUSCULOSKELETAL: There is no tenderness or deformity. There is no limitation range of motion. There is no evidence of acute injury. ED Course Vital Signs 01/25/19 13:21 Temperature 97.4 F L Pulse Rate 104 H Respiratory 23 Rate Blood Pressure 79/48 [Left] O2 Sat by Pulse 100 Oximetry ED Medical Decision Making - Lab Data Result diagrams: 01/25/19 13:31 01/25/19 13:31 Laboratory Tests 01/25/19 01/25/19 01/25/19 13:31 13:31 13:31 WBC 12.0 H RBC 6.00 H Hgb 14.7 Hct 47.7 H MCV 80 L MCH 25 L MCHC 31 L RDW 18.1 H Plt Count 224 Lymph % (Auto) 10.4 L [place] % (Auto) 9.3 H Eos % (Auto) 1.3 Baso % (Auto) 0.5 Lymph # 1.2 [place] # 1.1 H Eos # 0.2 Baso # 0.1 Seg Neutrophils % 78.5 H Seg Neutrophils # 9.5 H Sodium 159 H Potassium 6.0 H Chloride 119.0 H Carbon Dioxide 22 Anion Gap 24 BUN 185 H Creatinine 5.7 H D Estimated GFR 13 BUN/Creatinine Ratio 32 Glucose 433 H Lactic Acid 2.60 H* Calcium 8.7 Total Bilirubin 0.30 AST 12 ALT 20 Alkaline Phosphatase 90 Ammonia Total Creatine Kinase 294 H CK-MB (CK-2) 2.2 CK-MB (CK-2) Rel Index 0.7 Troponin T 0.080 H Total Protein 7.5 Albumin 2.6 L Albumin/Globulin Ratio 0.5 Triglycerides 172 H Cholesterol 148 LDL Cholesterol Direct 82 HDL Cholesterol 30 L Cholesterol/HDL Ratio 4.93 TSH Free T4 Urine Color Urine Turbidity Urine pH Ur Specific [place] Urine Protein Urine Glucose (UA) Urine Ketones Urine Blood Urine Nitrite Urine Bilirubin Urine Urobilinogen Ur Leukocyte Esterase Urine WBC (Auto) Urine RBC (Auto) U Epithel Cells (Auto) Hyaline Casts 01/25/19 01/25/19 01/25/19 13:31 13:31 15:00 WBC RBC Hgb Hct MCV MCH MCHC RDW Plt Count Lymph % (Auto) [place] % (Auto) Eos % (Auto) Baso % (Auto) Lymph # [place] # Eos # Baso # Seg Neutrophils % Seg Neutrophils # Sodium Potassium Chloride Carbon Dioxide Anion Gap BUN Creatinine Estimated GFR BUN/Creatinine Ratio Glucose Lactic Acid Calcium Total Bilirubin AST ALT Alkaline Phosphatase Ammonia 51.0 Total Creatine Kinase CK-MB (CK-2) CK-MB (CK-2) Rel Index Troponin T Total Protein Albumin Albumin/Globulin Ratio Triglycerides Cholesterol LDL Cholesterol Direct HDL Cholesterol Cholesterol/HDL Ratio TSH 4.020 Free T4 0.89 Urine Color Yellow Urine Turbidity Slightly-cloudy Urine pH 5.0 Ur Specific [place] 1.018 Urine Protein <15 mg/dl Urine Glucose (UA) 50 Urine Ketones Neg Urine Blood Neg Urine Nitrite Neg Urine Bilirubin Neg Urine Urobilinogen 4.0 Ur Leukocyte Esterase Neg Urine WBC (Auto) 3.0 Urine RBC (Auto) 1.0 U Epithel Cells (Auto) < 1.0 Hyaline Casts 9 - EKG Data -: EKG Interpreted by Pa EKG shows normal: sinus rhythm Rate: tachycardia (108 bpm) - EKG Data When compared to previous EKG there are: previous EKG unavailable Interpretation: other (no ischemic changes seen) - Radiology Data Radiology results: pending (CT head radiology read), image reviewed (CT head) - Differential Diagnosis hyponatremia, hypernatremia, dehydration, ICH, Critical care attestation.: If time is entered above; I have spent that time in minutes in the direct care of this critically ill patient, excluding procedure time. ED Disposition Clinical Impression: Altered mental status, Acute renal failure, Hyperkalemia, Dehydration Disposition: OP ADMIT IP TO THIS HOSP Is pt being admited?: Yes Does the pt Need Aspirin: No Condition: Fair Referrals: RAISA POE MD [Primary Care Provider] - 3-5 Days Time of Disposition: 15:48 (Hospitalist paged (Dr Schwarz))
[2019-01-25 14:07] LABS: Creatine Kinase MB 2.2 ng/mL (0.0-4.0)
[2019-01-25 14:08] LABS: Albumin 2.6 g/dL (3.9-5); Calcium 8.7 mg/dL (8.4-10.2)
[2019-01-25] MEDS ORDERED: NACL 0.9% 1000 ML 1,000 ML IV ONE ×4 (14:09→19:12)
[2019-01-25 14:23] LABS: Free T4 (Free Thyroxine) 0.89 ng/dL (0.76-1.46)
[2019-01-25] MEDS ORDERED: CALCIUM GLUCONATE 1,000 MG in NACL 0.9% 100 ML IV ONE (14:39)
[2019-01-25 14:47] LABS: Chol/HDL Ratio 4.93 %
[2019-01-25] MEDS ORDERED: D50W (25GM) Syringe IV ONE (15:02)
[2019-01-25] MEDS ORDERED: HumuLIN R IV ONE (15:02)
[2019-01-25 15:30] LABS: Bilirubin,Urine NEG (Negative); Blood,Urine NEG (Negative); Color,Urine Yellow (Yellow); Hyaline Casts,Urine 9 /LPF; Protein,Urine <15 mg/dL mg/dL (Negative)
--- NOTE | 2019-01-25 16:06 | Cat Scan Report ---
PROCEDURE: CT HEAD/BRAIN WO CON TECHNIQUE: Spiral CT imaging of the brain was obtained without the use of IV contrast. HISTORY: altered mental status COMPARISONS: Prior CT scan of the brain 12/16/2017 FINDINGS: Intraventricular drain is again seen entering right parietal region. Tip of the catheter projects in the ventricular system posteriorly. This is unchanged. No hydrocephalus. Edematous changes in the lef t basal ganglia appear to have resolved. Small to moderate size area of encephalomalacia again visual ized right frontal lobe. Small old area of encephalomalacia again visualized left cerebellar hemisphe re. The sulcal pattern and fissures are prominent consistent with mild diffuse atrophy. Ventricles are mi dline today. No abnormal extra-axial fluid collections or masses are seen. There is mild decreased de nsity in the periventricular white matter and deep white matter consistent with mild gliosis probably in the basis of microvascular disease or white matter changes of aging. There is no evidence of intracranial hemorrhage. No abnormal extra-axial fluid collections or masses are seen. Visualized paranasal sinuses are clear. Mastoid air cells are clear. No evidence of skull fracture. IMPRESSION: Edematous changes of the basal ganglia have resolved. The ventricles are midline and normal size. There is evidence of atrophy and gliosis as described. Old areas of encephalomalacia again visualized right frontal lobe and left cerebellar hemisphere. No acute intracranial abnormalities are identified. This document is electronically signed by Santiago Hardin MD., January 25 2019 04:05:01 PM ET
[2019-01-25] MEDS ORDERED: SODIUM CHLORIDE FLUSH SYRINGE 10 ML IV PRN (17:46)
--- NOTE | 2019-01-25 17:46 | History and Physical Report ---
History of Present Illness Date of examination: 01/25/19 Date of admission: 01/25/19 Chief complaint: AMS for 3 days History of present illness: 53-year-old AA malewith pmh significant for HTN CVA T2DM and BPH resident of [facility] sent in for Altered sensorium and poor PO intake.Patient has CVA --hence institutionalized at a young age.As per Nursing staff patient normally talkative till 3 days ago.Now lethargic and grunts when asked questions.No fever or chills.Very poor po intake Past Medical History Hypertension: Yes CVA: Yes Diabetes: Yes COPD: Yes Surgical History Past Surgical History?: No Family History Family history: no significant Social History Smoking Status: Unknown if ever smoked Review of Systems ROS: Stated complaint: ALTERED Other details as noted in HPI Comment: Unobtainable due to pts medical conditions Medications and Allergies Allergies Allergy/AdvReac Type Severity Reaction Status Date / Time No Known Allergies Allergy Unverified 02/07/16 02:00 Home Medications Medication Instructions Recorded Confirmed Last Taken Type Citalopram Hydrobromide [celeXA] 20 mg PO DAILY 02/07/16 01/25/19 02/06/16 History Acetaminophen [Tylenol] 650 mg PO Q4HR PRN 01/25/19 01/25/19 Unknown History AtorvaSTATin [Lipitor] 40 mg PO QHS 01/25/19 01/25/19 Unknown History Insulin Lispro [HumaLOG VIAL] See Protocol SUB-Q BID 01/25/19 01/25/19 Unknown History LORazepam [Ativan] 0.5 mg PO Q8H PRN 01/25/19 01/25/19 Unknown History Latanoprost [Xalatan] 1 drop OU HS 01/25/19 01/25/19 Unknown History Lisinopril [Zestril] 20 mg PO QDAY 01/25/19 01/25/19 Unknown History Magnesium Oxide [Mag-Ox] 400 mg PO QDAY 01/25/19 01/25/19 Unknown History Quetiapine Fumarate [SEROquel] 50 mg PO TID 01/25/19 01/25/19 Unknown History Thiamine [Vitamin B-1] 100 mg PO AC 01/25/19 01/25/19 Unknown History Timolol 0.5% [Timoptic] 1 drop OU BID 01/25/19 01/25/19 Unknown History hydroCHLOROthiazide [HCTZ] 25 mg PO QDAY 01/25/19 01/25/19 Unknown History Active Meds: Active Medications Sodium Chloride (Nacl 0.9% 1000 Ml) 1,000 mls @ 250 mls/hr IV ONCE ONE Stop: 01/25/19 19:45 Exam - Constitutional Vitals: Temp Pulse Resp BP Pulse Ox 97.4 F L 92 H 15 102/57 95 01/25/19 13:21 01/25/19 15:15 01/25/19 15:15 01/25/19 15:34 01/25/19 15:15 General appearance: Present: mild distress, well-nourished - EENT Eyes: Present: PERRL ENT: hearing intact, clear oral mucosa - Neck Neck: Present: supple, normal ROM - Respiratory Respiratory effort: normal Respiratory: bilateral: CTA - Cardiovascular Heart rate: 108 Rhythm: regular Heart Sounds: Present: S1 & S2. Absent: rub, click - Extremities Extremities: no ischemia, pulses intact, pulses symmetrical, No edema Peripheral Pulses: within normal limits - Abdominal General gastrointestinal: Present: soft, non-tender, non-distended, normal bowel sounds Male genitourinary: Present: normal - Rectal Rectal Exam: deferred - Integumentary Integumentary: Present: clear, warm, dry - Musculoskeletal Musculoskeletal: left sided weakness, generalized weakness - Psychiatric Psychiatric: other (Lethargic and decreased sensorium) - Neurologic Neurologic: CNII-XII intact, focal deficits - Allied Health Allied health notes reviewed: nursing, case management Results - Labs CBC & Chem 7: 01/26/19 04:25 01/26/19 04:25 Labs: Laboratory Last Values WBC 12.0 K/mm3 (4.5-11.0) H 01/25/19 13:31 RBC 6.00 M/mm3 (3.65-5.03) H 01/25/19 13:31 Hgb 14.7 gm/dl (11.8-15.2) 01/25/19 13:31 Hct 47.7 % (35.5-45.6) H 01/25/19 13:31 MCV 80 fl (84-94) L 01/25/19 13:31 MCH 25 pg (28-32) L 01/25/19 13:31 MCHC 31 % (32-34) L 01/25/19 13:31 RDW 18.1 % (13.2-15.2) H 01/25/19 13:31 Plt Count 224 K/mm3 (140-440) 01/25/19 13:31 Lymph % (Auto) 10.4 % (13.4-35.0) L 01/25/19 13:31 [place] % (Auto) 9.3 % (0.0-7.3) H 01/25/19 13:31 Eos % (Auto) 1.3 % (0.0-4.3) 01/25/19 13:31 Baso % (Auto) 0.5 % (0.0-1.8) 01/25/19 13:31 Lymph # 1.2 K/mm3 (1.2-5.4) 01/25/19 13:31 [place] # 1.1 K/mm3 (0.0-0.8) H 01/25/19 13:31 Eos # 0.2 K/mm3 (0.0-0.4) 01/25/19 13:31 Baso # 0.1 K/mm3 (0.0-0.1) 01/25/19 13:31 Seg Neutrophils % 78.5 % (40.0-70.0) H 01/25/19 13:31 Seg Neutrophils # 9.5 K/mm3 (1.8-7.7) H 01/25/19 13:31 Sodium 159 mmol/L (137-145) H 01/25/19 13:31 Potassium 6.0 mmol/L (3.6-5.0) H 01/25/19 13:31 Chloride 119.0 mmol/L (98-107) H 01/25/19 13:31 Carbon Dioxide 22 mmol/L (22-30) 01/25/19 13:31 Anion Gap 24 mmol/L 01/25/19 13:31 BUN 185 mg/dL (9-20) H 01/25/19 13:31 Creatinine 5.7 mg/dL (0.8-1.5) H D 01/25/19 13:31 Estimated GFR 13 ml/min 01/25/19 13:31 BUN/Creatinine Ratio 32 % 01/25/19 13:31 Glucose 433 mg/dL (75-100) H 01/25/19 13:31 POC Glucose 346 (70-105) H 01/25/19 17:11 Lactic Acid 2.30 mmol/L (0.7-2.0) H* 01/25/19 16:03 Calcium 8.7 mg/dL (8.4-10.2) 01/25/19 13:31 Total Bilirubin 0.30 mg/dL (0.1-1.2) 01/25/19 13:31 AST 12 units/L (5-40) 01/25/19 13:31 ALT 20 units/L (7-56) 01/25/19 13:31 Alkaline Phosphatase 90 units/L (35-129) 01/25/19 13:31 Ammonia 51.0 umol/L (25-60) 01/25/19 13:31 Total Creatine Kinase 294 units/L (55-170) H 01/25/19 13:31 CK-MB (CK-2) 2.2 ng/mL (0.0-4.0) 01/25/19 13:31 CK-MB (CK-2) Rel Index 0.7 (0-4) 01/25/19 13:31 Troponin T 0.080 ng/mL (0.00-0.029) H 01/25/19 13:31 Total Protein 7.5 g/dL (6.3-8.2) 01/25/19 13:31 Albumin 2.6 g/dL (3.9-5) L 01/25/19 13:31 Albumin/Globulin Ratio 0.5 % 01/25/19 13:31 Triglycerides 172 mg/dL (2-149) H 01/25/19 13:31 Cholesterol 148 mg/dL (50-199) 01/25/19 13:31 LDL Cholesterol Direct 82 mg/dL (50-130) 01/25/19 13:31 HDL Cholesterol 30 mg/dL (40-59) L 01/25/19 13:31 Cholesterol/HDL Ratio 4.93 % 01/25/19 13:31 TSH 4.020 mlU/mL (0.270-4.200) 01/25/19 13:31 Free T4 0.89 ng/dL (0.76-1.46) 01/25/19 13:31 Urine Color Yellow (Yellow) 01/25/19 15:00 Urine Turbidity Slightly-cloudy (Clear) 01/25/19 15:00 Urine pH 5.0 (5.0-7.0) 01/25/19 15:00 Ur Specific [place] 1.018 (1.003-1.030) 01/25/19 15:00 Urine Protein <15 mg/dl mg/dL (Negative) 01/25/19 15:00 Urine Glucose (UA) 50 mg/dL (Negative) 01/25/19 15:00 Urine Ketones Neg mg/dL (Negative) 01/25/19 15:00 Urine Blood Neg (Negative) 01/25/19 15:00 Urine Nitrite Neg (Negative) 01/25/19 15:00 Urine Bilirubin Neg (Negative) 01/25/19 15:00 Urine Urobilinogen 4.0 mg/dL (<2.0) 01/25/19 15:00 Ur Leukocyte Esterase Neg (Negative) 01/25/19 15:00 Urine WBC (Auto) 3.0 /HPF (0.0-6.0) 01/25/19 15:00 Urine RBC (Auto) 1.0 /HPF (0.0-6.0) 01/25/19 15:00 U Epithel Cells (Auto) < 1.0 /HPF (0-13.0) 01/25/19 15:00 Hyaline Casts 9 /LPF 01/25/19 15:00 Short CBC 01/25/19 01/26/19 Range/Units 13:31 04:25 WBC 12.0 H 10.2 (4.5-11.0) K/mm3 Hgb 14.7 13.1 (11.8-15.2) gm/dl Hct 47.7 H 41.7 D (35.5-45.6) % Plt Count 224 163 (140-440) K/mm3 BMP 01/25/19 01/25/19 01/26/19 13:31 18:50 04:25 Sodium 159 H 162 H* 158 H Potassium 6.0 H 4.0 D 4.5 Chloride 119.0 H 125.2 H 122.9 H Carbon Dioxide 22 24 21 L BUN 185 H 180 H 163 H Creatinine 5.7 H D 5.1 H 3.9 H Glucose 433 H 438 H 465 H Calcium 8.7 8.5 7.8 L 01/26/19 04:25 Sodium 160 H Potassium 4.6 Chloride 123.9 H Carbon Dioxide 19 L BUN 161 H Creatinine 3.9 H Glucose 468 H Calcium 7.8 L Cardiac Enzymes 01/25/19 01/25/19 01/26/19 Range/Units 13:31 23:08 04:25 Total Creatine Kinase 294 H (55-170) units/L CK-MB (CK-2) 2.2 (0.0-4.0) ng/mL Troponin T 0.080 H 0.045 H D 0.031 H D (0.00-0.029) ng/mL Liver Function 01/25/19 01/26/19 Range/Units 13:31 04:25 Total Bilirubin 0.30 0.20 (0.1-1.2) mg/dL AST 12 12 (5-40) units/L ALT 20 17 (7-56) units/L Alkaline Phosphatase 90 84 (35-129) units/L Albumin 2.6 L 2.3 L (3.9-5) g/dL Urine 01/25/19 Range/Units 15:00 Urine Color Yellow (Yellow) Urine pH 5.0 (5.0-7.0) Ur Specific [place] 1.018 (1.003-1.030) Urine Protein <15 mg/dl (Negative) mg/dL Urine Glucose (UA) 50 (Negative) mg/dL - Imaging and Cardiology EKG: report reviewed (Sinus tacycardia HR of 108/min Possible LAE) Assessment and Plan Assessment and plan: Critical statement The high probability of a clinically significant sudden or life threatening deteriration of the pulmonary cardiac renal systems required my full and direct attention,interventon and personal management ..The aggrgate critical time was 40 minutes.This time is in addition to time spent performing reported procedures but includes the following Data review and interpretation Patient assesment and monitoring of vital signs Documentation Medication orders and management Advance Directives: Yes (Full code) VTE prophylaxis?: Chemical Plan of care discussed with patient/family: Yes - Patient Problems (1) Acute metabolic encephalopathy Current Visit: Yes Status: Acute Plan to address problem: Sec to Uremia and possible sepsisand dehydration (2) MYRTLE (acute kidney injury) Current Visit: Yes Status: Acute Plan to address problem: Patient has a high BUN/Cr of 185/5.7 May improve with fluids Nephrology consult requested ATN Serial BMP (3) Acute hypernatremia Current Visit: Yes Status: Acute Plan to address problem: IV D5w at 125 /hr Hemoconcentration (4) Hyperkalemia Current Visit: Yes Status: Acute Plan to address problem: Patient given Calcium Gluconate NaHco3 and Kayexalate (5) Metabolic acidosis with increased anion gap and reduced excretion of inorganic acids Current Visit: Yes Status: Acute Plan to address problem: Sec to above (6) Sepsis Current Visit: Yes Status: Acute Qualifiers: Sepsis type: sepsis due to unspecified organism Qualified Code(s): A41.9 - Sepsis, unspecified organism Plan to address problem: Source of infection unclear IV Cefepime and Vancomycin started (7) IDDM (insulin dependent diabetes mellitus) Current Visit: Yes Status: Chronic Plan to address problem: Coverage for now Check A1c (8) HTN (hypertension) Current Visit: Yes Status: Chronic Qualifiers: Hypertension type: essential hypertension Qualified Code(s): I10 - Essential (primary) hypertension Plan to address problem: Cont antihyprtensives as necessary (9) HLD (hyperlipidemia) Current Visit: Yes Status: Chronic Qualifiers: Hyperlipidemia type: mixed hyperlipidemia Qualified Code(s): E78.2 - Mixed hyperlipidemia Plan to address problem: Hold statins (10) BPH (benign prostatic hyperplasia) Current Visit: Yes Status: Chronic Qualifiers: Lower urinary tract symptom presence: symptoms present Plan to address problem: Cont Flomax (11) DVT prophylaxis Current Visit: Yes Status: Acute Plan to address problem: on Heparin and GI prophylaxis
[2019-01-25] MEDS ORDERED: NACL 0.45% 500 ML IV SCH (18:00)
--- NOTE | 2019-01-25 19:11 | Emergency Department Report ---
ED General Adult HPI - General Chief complaint: Altered Mental Status Stated complaint: ALTERED Time Seen by Provider: 01/25/19 13:18 Source: EMS Mode of arrival: Stretcher Limitations: Altered Mental Status - History of Present Illness Initial comments: Called to room due to the patient being hypotensive. Patient to ED fall to mental status - Related Data Home Medications Medication Instructions Recorded Confirmed Last Taken Citalopram Hydrobromide [celeXA] 20 mg PO DAILY 02/07/16 01/25/19 02/06/16 Acetaminophen [Tylenol] 650 mg PO Q4HR PRN 01/25/19 01/25/19 Unknown AtorvaSTATin [Lipitor] 40 mg PO QHS 01/25/19 01/25/19 Unknown Insulin Lispro [HumaLOG VIAL] See Protocol SUB-Q BID 01/25/19 01/25/19 Unknown LORazepam [Ativan] 0.5 mg PO Q8H PRN 01/25/19 01/25/19 Unknown Latanoprost [Xalatan] 1 drop OU HS 01/25/19 01/25/19 Unknown Lisinopril [Zestril] 20 mg PO QDAY 01/25/19 01/25/19 Unknown Magnesium Oxide [Mag-Ox] 400 mg PO QDAY 01/25/19 01/25/19 Unknown Quetiapine Fumarate [SEROquel] 50 mg PO TID 01/25/19 01/25/19 Unknown Thiamine [Vitamin B-1] 100 mg PO AC 01/25/19 01/25/19 Unknown Timolol 0.5% [Timoptic] 1 drop OU BID 01/25/19 01/25/19 Unknown hydroCHLOROthiazide [HCTZ] 25 mg PO QDAY 01/25/19 01/25/19 Unknown Allergies Allergy/AdvReac Type Severity Reaction Status Date / Time No Known Allergies Allergy Unverified 02/07/16 02:00 ED Review of Systems ROS: Stated complaint: ALTERED Other details as noted in HPI Comment: Unobtainable due to pts medical conditions ED Past Medical Hx - Past Medical History Hx Hypertension: Yes Hx CVA: Yes Hx Diabetes: Yes Hx COPD: Yes - Surgical History Past Surgical History?: No - Social History Smoking Status: Unknown if ever smoked - Medications Home Medications: Home Medications Medication Instructions Recorded Confirmed Last Taken Type Citalopram Hydrobromide [celeXA] 20 mg PO DAILY 02/07/16 01/25/19 02/06/16 History Acetaminophen [Tylenol] 650 mg PO Q4HR PRN 01/25/19 01/25/19 Unknown History AtorvaSTATin [Lipitor] 40 mg PO QHS 01/25/19 01/25/19 Unknown History Insulin Lispro [HumaLOG VIAL] See Protocol SUB-Q BID 01/25/19 01/25/19 Unknown History LORazepam [Ativan] 0.5 mg PO Q8H PRN 01/25/19 01/25/19 Unknown History Latanoprost [Xalatan] 1 drop OU HS 01/25/19 01/25/19 Unknown History Lisinopril [Zestril] 20 mg PO QDAY 01/25/19 01/25/19 Unknown History Magnesium Oxide [Mag-Ox] 400 mg PO QDAY 01/25/19 01/25/19 Unknown History Quetiapine Fumarate [SEROquel] 50 mg PO TID 01/25/19 01/25/19 Unknown History Thiamine [Vitamin B-1] 100 mg PO AC 01/25/19 01/25/19 Unknown History Timolol 0.5% [Timoptic] 1 drop OU BID 01/25/19 01/25/19 Unknown History hydroCHLOROthiazide [HCTZ] 25 mg PO QDAY 01/25/19 01/25/19 Unknown History ED Physical Exam - General Limitations: Altered Mental Status General appearance: obtunded - Head Head exam: Present: atraumatic, normocephalic - ENT ENT exam: Present: mucous membranes dry - Respiratory Respiratory exam: Present: normal lung sounds bilaterally. Absent: respiratory distress - Cardiovascular Cardiovascular Exam: Present: normal rhythm, tachycardia - GI/Abdominal GI/Abdominal exam: Present: soft. Absent: distended - exam: Present: other (patient has a slit to the glans penis) - Neurological Exam Neurological exam: Present: other (not able to assess due to the patient's condition) - Psychiatric Psychiatric exam: Present: other (not able to assess due to the patient's condition) ED Course Vital Signs 01/25/19 01/25/19 01/25/19 12:50 13:00 13:16 Temperature Pulse Rate 123 H 119 H 106 H Respiratory 25 H 17 Rate Blood Pressure 84/42 80/44 Blood Pressure [Left] O2 Sat by Pulse 91 97 Oximetry 01/25/19 01/25/19 01/25/19 13:21 13:30 13:45 Temperature 97.4 F L Pulse Rate 104 H 103 H 103 H Respiratory 23 22 19 Rate Blood Pressure 78/51 89/55 Blood Pressure 79/48 [Left] O2 Sat by Pulse 100 92 92 Oximetry 01/25/19 01/25/19 01/25/19 14:00 14:15 14:30 Temperature Pulse Rate 99 H 101 H 97 H Respiratory 26 H 21 13 Rate Blood Pressure 89/55 93/55 93/55 Blood Pressure [Left] O2 Sat by Pulse 95 92 92 Oximetry 01/25/19 01/25/19 01/25/19 14:46 15:00 15:15 Temperature Pulse Rate 99 H 95 H 92 H Respiratory 18 20 15 Rate Blood Pressure 100/58 84/55 102/57 Blood Pressure [Left] O2 Sat by Pulse 96 95 Oximetry 01/25/19 15:34 Temperature Pulse Rate Respiratory Rate Blood Pressure 102/57 Blood Pressure [Left] O2 Sat by Pulse Oximetry - Central Line Placement Right Femoral Consent Obtained: emergent situation Time Out Performed: Yes Patient Placed on Monitor/Pulse Ox: Yes MD Prep: mask, gown, gloves Central Line Prep: Povidone-Iodine 1%, sterile drapes applied Ultrasound Used for Placement: No Bloods Obtained for Lab: No Central Line Position: good blood return, all ports aspirated, flus, sutured in place with 2-0 Dressing Applied: Tegaderm Patient Tolerated Procedure: well Complications: none Additional Comments: There was an attempted a right subclavian line to no avail she says her o ropharynx evaluation of pneumothorax ED Medical Decision Making - Lab Data Result diagrams: 01/25/19 13:31 01/25/19 13:31 - Medical Decision Making Hurtado catheter placed by me per Request of Sterile procedure use Critical care attestation.: If time is entered above; I have spent that time in minutes in the direct care of this critically ill patient, excluding procedure time. ED Disposition Clinical Impression: Sepsis Disposition: [id number] OP ADMIT IP TO THIS HOSP Is pt being admited?: Yes Does the pt Need Aspirin: No Condition: Fair
[2019-01-25] MEDS ORDERED: NACL 0.9% 1000 ML 1,000 ML ONE (19:38)
--- NOTE | 2019-01-25 19:47 | Consultation ---
History of Present Illness - Reason for Consult acute renal failure, hyperkalemia - History of Present Illness 53 year old with medical history significant for HTN , Basal ganglia,hemorrhage presented [facility] the ER from the [facility] with complaints of increasing lethargy and altered mental status which worsened today . on arrival to the ER was hypotensive with blood pressure in the 70s and had an elevated lactate level . He was also confused. labs notable for hyperkalemia of 6 , BUN of 185, creatinin e of 5.7 He has received 2L of saline in the ER ,insulin , calcium gluconate and bicarbonate, a central line was also placed and started on pressors. He is confused , mostly non verbal at this time and unable to provide a response. O2 sat : 100% on 2L. He was hypothermic as well. Medications and Allergies Allergies Allergy/AdvReac Type Severity Reaction Status Date / Time No Known Allergies Allergy Unverified 02/07/16 02:00 Home Medications Medication Instructions Recorded Confirmed Last Taken Type Citalopram Hydrobromide [celeXA] 20 mg PO DAILY 02/07/16 01/25/19 02/06/16 History Acetaminophen [Tylenol] 650 mg PO Q4HR PRN 01/25/19 01/25/19 Unknown History AtorvaSTATin [Lipitor] 40 mg PO QHS 01/25/19 01/25/19 Unknown History Insulin Lispro [HumaLOG VIAL] See Protocol SUB-Q BID 01/25/19 01/25/19 Unknown History LORazepam [Ativan] 0.5 mg PO Q8H PRN 01/25/19 01/25/19 Unknown History Latanoprost [Xalatan] 1 drop OU HS 01/25/19 01/25/19 Unknown History Lisinopril [Zestril] 20 mg PO QDAY 01/25/19 01/25/19 Unknown History Magnesium Oxide [Mag-Ox] 400 mg PO QDAY 01/25/19 01/25/19 Unknown History Quetiapine Fumarate [SEROquel] 50 mg PO TID 01/25/19 01/25/19 Unknown History Thiamine [Vitamin B-1] 100 mg PO AC 01/25/19 01/25/19 Unknown History Timolol 0.5% [Timoptic] 1 drop OU BID 01/25/19 01/25/19 Unknown History hydroCHLOROthiazide [HCTZ] 25 mg PO QDAY 01/25/19 01/25/19 Unknown History Active Meds: Active Medications Heparin Sodium (Porcine) (Heparin) 5,000 unit SUB-Q Q12HR [facility]IK[facility] Sodium Chloride (Nacl 0.9% 1000 Ml) 1,000 mls @ 250 mls/hr IV ONCE ONE Stop: 01/25/19 19:45 Sodium Chloride (Nacl 0.45%) 500 mls @ 50 mls/hr IV DIRECT NIKOLAS Sodium Chloride (Nacl 0.9% 1000 Ml) 1,000 mls @ 999 mls/hr IV BOLUS ONE Stop: 01/25/19 20:12 Sodium Chloride (Nacl 0.45% 1000 Ml) 1,000 mls @ 200 mls/hr IV DIRECT NIKOLAS Dextrose (D5w) 500 mls @ 0 mls/hr IV DIRECT NIKOLAS Dextrose/Sodium Chloride (D5ns) 1,000 mls @ 150 mls/hr IV DIRECT NIKOLAS Sodium Chloride (Sodium Chloride Flush Syringe 10 Ml) 10 ml IV BID NIKOLAS Sodium Chloride (Sodium Chloride Flush Syringe 10 Ml) 10 ml IV PRN PRN PRN Reason: LINE FLUSH Review of Systems ROS unobtainable: due to mental status Exam - Vital Signs Vital signs: Vital Signs Pulse 123 H 01/25/19 12:50 - General Appearance General appearance: appears stated age, chronically ill EENT: ATNC, PERRL, mucous membranes dry Neck: Present: neck supple, trachea midline Respiratory: Clear to Ascultation Heart: regular, S1S2 Gastrointestinal: Present: normal, normoactive bowel sounds Integumentary: cool/clammy, other (ulcer on left leg with clean dressing,. ) Neurologic: confused, disoriented Musculoskeletal: Absent: deferred, joint swelling Psychiatric: depressed Results - Lab Results 01/25/19 13:31 01/25/19 13:31 Most recent lab results Calcium 8.7 mg/dL (8.4-10.2) 01/25/19 13:31 - Image Kidney/bladder ultrasound: other (I reviewed CXR with clear lung wilson. ) Assessment and Plan - Patient Problems (1) Acute kidney injury (nontraumatic) Current Visit: Yes Status: Acute Plan to address problem: Acute kidney injury : Severe KDIGO STAGE 3 . baseline creatinine : 0.7mg/dl current creatinine : 5.7mg/dl I reviewed urinalysis without signficant proteinuria , hyaline cast noted -volume depleted on exam with elevated lactate - Will place wolf now - has received 2L of saline -Will give additional liter of saline - then will continue 0.45% saline for volume repletion and free water correction given severe hypernatremia -Obtain renal ultrasound - Repeat BMP. (2) Acute hypernatremia Current Visit: Yes Status: Acute Plan to address problem: Acute hypernatremia 2/2 AMS -appears volume depleted - Hypovolemic Hypernatremia - Will correct volume first -has received 2L of saline - Give an additional liter of saline -recheck lactate to guide hydration - Will give D5W bolus - then 0.45% saline @200cc/hr for volume correction and free water replacement . (3) Metabolic acidosis with increased anion gap and reduced excretion of inorganic acids Current Visit: Yes Status: Acute Plan to address problem: anion gap metabolic acidosis /accompanying hyperglycemia , negative ketones -likely 2/2 MYRTLE with anion gap and non anion gap acidosis -monitor fingerstick given hyperglycemia at risk for DKA. (4) Hyperkalemia Current Visit: Yes Status: Acute Plan to address problem: acute hyperkalemia -noted to be hyperglycemic as well - urine ketones are negative doubt DKA - however likely component of transcellular shift with hyperglycemia - Has received insulin - repeat RFP -hydration for treatment of MYRTLE - AMS can not take oral meds for now so unable to give kayexalate. (5) Shock Current Visit: Yes Status: Acute Plan to address problem: SHOCK UNCLEAR AETIOLOGY WAS HYPOTHERMIC -CONSIDER BROAD SPECTRUM ANTIBIOTICS -VOlume hydration - wean pressors as tolerated.
[2019-01-25] MEDS ORDERED: D5NS 1,000 ML IV SCH (20:00)
[2019-01-25] MEDS ORDERED: D5W 500 ML IV SCH (20:00)
--- NOTE | 2019-01-25 20:01 | XRay Report ---
PROCEDURE: Chest. TECHNIQUE: Portable AP supine view. HISTORY: Failed central venous line placement. COMPARISONS: Chest 01/11/2018. Dictation not available. FINDINGS: The heart and mediastinum appear normal. The lungs are clear and well expanded. There is a ventriculo peritoneal shunt catheter coursing along the right side of the chest. There is no evidence of a centr al venous catheter. The soft tissues are unremarkable. 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 IMPRESSION: No evidence of acute cardiopulmonary disease. This document is electronically signed by Angel Allen MD., January 25 2019 07:59:00 PM ET
[2019-01-25 20:09] LABS: Calcium 8.5 mg/dL (8.4-10.2)
[2019-01-25] MEDS: NACL 0.45% 1000 ML 1,000 ML IV SCH (20:58)
[2019-01-25] MEDS ORDERED: KIONEX PO ONE (22:48)
[2019-01-25] MEDS ORDERED: MAXIPIME/NS 1 GM/100 ML 1 GM/100 ML BAG IV SCH (23:00)
[2019-01-25] MEDS ORDERED: VANCOMYCIN 1,500 MG in NACL 0.9% 500 ML 500 ML IV ONE (23:00)
[2019-01-25] MEDS ORDERED: VANCOMYCIN PHARMACY TO DOSE IV SCH (23:00)
[2019-01-25] MEDS ORDERED: LANTUS SUB-Q SCH (23:30)
[2019-01-25] MEDS: HEPARIN SUB-Q SCH (23:44)
[2019-01-25] MEDS: MAXIPIME/NS 1 GM/100 ML 1 GM/100 ML BAG IV SCH (23:50)
[2019-01-26] MEDS: HumaLOG SUB-Q SCH ×6 (02:29→22:01)
[2019-01-26] MEDS: SODIUM CHLORIDE FLUSH SYRINGE 10 ML IV SCH ×3 (02:31→22:44)
[2019-01-26] MEDS: NACL 0.45% 1000 ML 1,000 ML IV SCH ×3 (03:48→14:44)
[2019-01-26 05:22] LABS: Basophils # (Auto) 0.2 K/mm3 (0.0-0.1); Basophils % (Auto) 1.5 % (0.0-1.8); Eosinophils # (Auto) 0.1 K/mm3 (0.0-0.4); Eosinophils % (Auto) 1.1 % (0.0-4.3); Hematocrit 41.7 % (35.5-45.6); Hemoglobin 13.1 gm/dl (11.8-15.2); Lymphocytes # (Auto) 0.8 K/mm3 (1.2-5.4); Lymphocytes % (Auto) 8.2 % (13.4-35.0); Mean Corpuscular HGB Conc 31 % (32-34); Mean Corpuscular Volume 80 fl (84-94); Monocytes # (Auto) 0.8 K/mm3 (0.0-0.8); Monocytes % (Auto) 7.6 % (0.0-7.3); Platelet Count 163 K/mm3 (140-440); Red Blood Count 5.21 M/mm3 (3.65-5.03)
[2019-01-26 05:42] LABS: Albumin 2.3 g/dL (3.9-5); Calcium 7.8 mg/dL (8.4-10.2)
[2019-01-26 05:43] LABS: Calcium 7.8 mg/dL (8.4-10.2)
--- NOTE | 2019-01-26 08:56 | Consultation ---
History of Present Illness Consult date: 01/26/19 Requesting physician: ANTONIA VALENCIA History of present illness: The patient is a 53-year-old male presenting with a chief complaint of altered mental status. The patient is a resident at [facility] staff state for the past 3 days the patient has had a declining mental status. The patient is normally alert and talkative. This morning patient had decreased responsiveness and was lethargic by lunch. They state the patient would not follow simple commands so the patient was sent to the ED for further evaluation. [facility] staff report patient has had decreased po over the last few days. The patient appears lethargic and does not answer questions intelligibly Past Medical History Hypertension: Yes CVA: Yes Diabetes: Yes COPD: Yes Surgical History Past Surgical History?: No Family History Family history: no significant Social History Smoking Status: Unknown if ever smoked Medications and Allergies Allergies Allergy/AdvReac Type Severity Reaction Status Date / Time No Known Allergies Allergy Unverified 02/07/16 02:00 Home Medications Medication Instructions Recorded Confirmed Last Taken Type Citalopram Hydrobromide [celeXA] 20 mg PO DAILY 02/07/16 01/25/19 02/06/16 History Acetaminophen [Tylenol] 650 mg PO Q4HR PRN 01/25/19 01/25/19 Unknown History AtorvaSTATin [Lipitor] 40 mg PO QHS 01/25/19 01/25/19 Unknown History Insulin Lispro [HumaLOG VIAL] See Protocol SUB-Q BID 01/25/19 01/25/19 Unknown History LORazepam [Ativan] 0.5 mg PO Q8H PRN 01/25/19 01/25/19 Unknown History Latanoprost [Xalatan] 1 drop OU HS 01/25/19 01/25/19 Unknown History Lisinopril [Zestril] 20 mg PO QDAY 01/25/19 01/25/19 Unknown History Magnesium Oxide [Mag-Ox] 400 mg PO QDAY 01/25/19 01/25/19 Unknown History Quetiapine Fumarate [SEROquel] 50 mg PO TID 01/25/19 01/25/19 Unknown History Thiamine [Vitamin B-1] 100 mg PO AC 01/25/19 01/25/19 Unknown History Timolol 0.5% [Timoptic] 1 drop OU BID 01/25/19 01/25/19 Unknown History hydroCHLOROthiazide [HCTZ] 25 mg PO QDAY 01/25/19 01/25/19 Unknown History Active Meds: Active Medications Heparin Sodium (Porcine) (Heparin) 5,000 unit SUB-Q Q12HR [facility] Last Admin: 01/25/19 23:44 Dose: 5,000 unit Documented by: Sodium Chloride (Nacl 0.45% 1000 Ml) 1,000 mls @ 200 mls/hr IV DIRECT [facility] Last Admin: 01/26/19 03:48 Dose: 200 mls/hr Documented by: Cefepime HCl (Maxipime/Ns 1 Gm/100 Ml) 1 gm in 100 mls @ 200 mls/hr IV Q24HR@2200 NIKOLAS; Protocol Last Admin: 01/25/19 23:50 Dose: 200 mls/hr Documented by: Insulin Glargine (Lantus) 25 units SUB-Q QHS NIKOLAS Last Admin: 01/25/19 23:50 Dose: 25 units Documented by: Insulin Human Lispro (Humalog) 0 unit SUB-Q Q4HR [facility]; Protocol Last Admin: 01/26/19 06:30 Dose: 8 unit Documented by: Sodium Chloride (Sodium Chloride Flush Syringe 10 Ml) 10 ml IV BID [facility] Last Admin: 01/26/19 02:31 Dose: Not Given Documented by: Sodium Chloride (Sodium Chloride Flush Syringe 10 Ml) 10 ml IV PRN PRN PRN Reason: LINE FLUSH Review of Systems ROS unobtainable: due to mental status Physical Examination Vital signs: Vital Signs Pulse 123 H 01/25/19 12:50 Constitutional: no acute distress, alert, other (Not oriented.) Eyes: non-icteric ENT: oropharynx moist Neck: supple, no lymphadenopathy Effort: normal Ascultation: Bilateral: diminished breath sounds Cardiovascular: regular rate and rhythm Gastrointestinal: normoactive bowel sounds, soft, non-tender Integumentary: normal Extremities: no cyanosis, no edema Neurologic: non-focal exam, pupils equal and round Psychiatric: other (Can Not asses due to his mental status.) Results - Laboratory Findings CBC and BMP: 02/01/19 03:50 02/01/19 03:50 Abnormal lab findings: Abnormal Labs 01/25/19 01/25/19 01/25/19 13:31 13:31 13:31 WBC 12.0 H RBC 6.00 H Hct 47.7 H MCV 80 L MCH 25 L MCHC 31 L RDW 18.1 H Lymph % (Auto) 10.4 L [place] % (Auto) 9.3 H Lymph # [place] # 1.1 H Baso # Seg Neutrophils % 78.5 H Seg Neutrophils # 9.5 H Sodium 159 H Potassium 6.0 H Chloride 119.0 H Carbon Dioxide BUN 185 H Creatinine 5.7 H D Glucose 433 H POC Glucose Lactic Acid 2.60 H* Calcium Total Creatine Kinase 294 H Troponin T 0.080 H Albumin 2.6 L Triglycerides 172 H HDL Cholesterol 30 L 01/25/19 01/25/19 01/25/19 16:03 16:03 17:11 WBC RBC Hct MCV MCH MCHC RDW Lymph % (Auto) [place] % (Auto) Lymph # [place] # Baso # Seg Neutrophils % Seg Neutrophils # Sodium Potassium Chloride Carbon Dioxide BUN Creatinine Glucose POC Glucose 346 H Lactic Acid 2.20 H* 2.30 H* Calcium Total Creatine Kinase Troponin T Albumin Triglycerides HDL Cholesterol 01/25/19 01/25/19 01/26/19 18:50 23:08 00:22 WBC RBC Hct MCV MCH MCHC RDW Lymph % (Auto) [place] % (Auto) Lymph # [place] # Baso # Seg Neutrophils % Seg Neutrophils # Sodium 162 H* Potassium Chloride 125.2 H Carbon Dioxide BUN 180 H Creatinine 5.1 H Glucose 438 H POC Glucose 480 H Lactic Acid Calcium Total Creatine Kinase Troponin T 0.045 H D Albumin Triglycerides HDL Cholesterol 01/26/19 01/26/19 01/26/19 02:16 04:25 04:25 WBC RBC 5.21 H Hct MCV 80 L MCH 25 L MCHC 31 L RDW 18.0 H Lymph % (Auto) 8.2 L [place] % (Auto) 7.6 H Lymph # 0.8 L [place] # Baso # 0.2 H Seg Neutrophils % 81.6 H Seg Neutrophils # 8.3 H Sodium 158 H Potassium Chloride 122.9 H Carbon Dioxide 21 L BUN 163 H Creatinine 3.9 H Glucose 465 H POC Glucose 462 H Lactic Acid Calcium 7.8 L Total Creatine Kinase Troponin T Albumin 2.3 L Triglycerides HDL Cholesterol 01/26/19 01/26/19 04:25 05:33 WBC RBC Hct MCV MCH MCHC RDW Lymph % (Auto) [place] % (Auto) Lymph # [place] # Baso # Seg Neutrophils % Seg Neutrophils # Sodium 160 H Potassium Chloride 123.9 H Carbon Dioxide 19 L BUN 161 H Creatinine 3.9 H Glucose 468 H POC Glucose 309 H Lactic Acid Calcium 7.8 L Total Creatine Kinase Troponin T 0.031 H D Albumin Triglycerides HDL Cholesterol - Diagnostic Findings Chest x-ray: image reviewed (Low lung volumes , left V-P shunt) Assessment and Plan Acute metabolic encephalopathy MYRTLE (acute kidney injury) Acute hypernatremia Hyperkalemia Metabolic acidosis with increased anion gap and reduced excretion of inorganic acids Sepsis IDDM (insulin dependent diabetes mellitus) HTN (hypertension) HLD (hyperlipidemia) BPH (benign prostatic hyperplasia) 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 Discussed with primary service. Please do not hesitate to call with questions or concerns
--- NOTE | 2019-01-26 09:11 | Progress Note ---
Subjective Interval history: Patient was seen today for follow-up on multiple renal related issues Events of this hospitalization noted Patient is critically ill patient seen in the ICU setting Catheter removed from the bladder Discussed with ICU nurse Vitals labs intake output medications were reviewed Social history: Reviewed Allergies: Reviewed Family history: Reviewed Physical examination HEENT: Oral mucosa Dry no pallor or icterus Neck: Supple no JVD Chest: Clear to auscultation anteriorly CVS: Regular rate and rhythm S1 and S2 heard Abdomen: Soft nontender no suprapubic masses no organomegaly appreciable Extremity: Dry skin no edema reduced skin turgor Musculoskeletal: No joint effusion noted in knees and ankle Neurological: Ultram mental status Dermatology: No petechial rashes Psychiatry: No evidence of any agitation and aggression noted Assessment and plan Acute kidney injury: Baseline creatinine was 0.7 admitted with a creatinine of 5.7 Admitted with the shock of unclear etiology patient was also noted to be hypo kalemic currently being resuscitated with volume, supportive care, Patient is currently nonoliguric in the previous 24 hours discussed with ICU nurse: Free water 300 cc every 4 hours as tolerated No emergent indication for renal replacement therapy today Ultrasonogram results currently pending Hyperkalemia: Monitor potassium level, currently around 4.6 Hypernatremia continue to monitor and follow serum sodium stable Lactic acidosis, follow-up normal Metabolic acidosis: Continue to monitor and follow supportive care Patient has multiple risk factor for underlying chronic kidney disease, has hi story of hypertension, admitted with basal ganglier hemorrhage altered mental status significantly elevated BUN and creatinine Profoundly volume depleted, he has been resuscitated with IV fluid Was taking lisinopril in outpatient setting along with hydrochlorothiazide Critical care time spent in direct patient care today 35 minutes at bedside We'll continue to follow and make recommendation from renal standpoint Objective - Vital Signs Vital signs: Vital Signs - 12hr 01/25/19 01/26/19 01/26/19 21:49 00:00 03:14 Temperature 97.8 F 97.6 F 97.8 F Pulse Rate [ From Monitor] Respiratory 21 Rate O2 Sat by Pulse 98 Oximetry 01/26/19 01/26/19 04:00 08:00 Temperature Pulse Rate [ 84 From Monitor] Respiratory 24 17 Rate O2 Sat by Pulse 98 100 Oximetry - Lab 01/26/19 04:25 01/26/19 16:11 Most recent lab results Calcium 7.8 mg/dL (8.4-10.2) L 01/26/19 04:25 Medications & Allergies - Medications Allergies/Adverse Reactions: Allergies No Known Allergies Allergy (Unverified 02/07/16 02:00) Home Medications: Home Medications Medication Instructions Recorded Confirmed Last Taken Type Citalopram Hydrobromide [celeXA] 20 mg PO DAILY 02/07/16 01/25/19 02/06/16 History Acetaminophen [Tylenol] 650 mg PO Q4HR PRN 01/25/19 01/25/19 Unknown History AtorvaSTATin [Lipitor] 40 mg PO QHS 01/25/19 01/25/19 Unknown History Insulin Lispro [HumaLOG VIAL] See Protocol SUB-Q BID 01/25/19 01/25/19 Unknown History LORazepam [Ativan] 0.5 mg PO Q8H PRN 01/25/19 01/25/19 Unknown History Latanoprost [Xalatan] 1 drop OU HS 01/25/19 01/25/19 Unknown History Lisinopril [Zestril] 20 mg PO QDAY 01/25/19 01/25/19 Unknown History Magnesium Oxide [Mag-Ox] 400 mg PO QDAY 01/25/19 01/25/19 Unknown History Quetiapine Fumarate [SEROquel] 50 mg PO TID 01/25/19 01/25/19 Unknown History Thiamine [Vitamin B-1] 100 mg PO AC 01/25/19 01/25/19 Unknown History Timolol 0.5% [Timoptic] 1 drop OU BID 01/25/19 01/25/19 Unknown History hydroCHLOROthiazide [HCTZ] 25 mg PO QDAY 01/25/19 01/25/19 Unknown History Active Medications: Generic Name Dose Route Start Last Admin Trade Name Freq PRN Reason Stop Dose Admin Heparin Sodium (Porcine) 5,000 unit 01/25/19 22:00 01/25/19 23:44 Heparin SUB-Q 5,000 unit Q12HR NIKOLAS Administration Sodium Chloride 1,000 mls @ 200 mls/hr 01/25/19 20:00 01/26/19 03:48 Nacl 0.45% 1000 Ml IV 200 mls/hr DIRECT NIKOLAS Administration Cefepime HCl 1 gm in 100 mls @ 200 mls/hr 01/25/19 23:00 01/25/19 23:50 Maxipime/Ns 1 Gm/100 Ml IV 01/27/19 22:59 200 mls/hr Q24HR@2200 [facility] Administration Protocol Insulin Glargine 35 units 01/26/19 22:00 Lantus SUB-Q QHS [facility] Insulin Human Lispro 0 unit 01/25/19 23:15 01/26/19 06:30 Humalog SUB-Q 8 unit Q4HR [facility] Administration Protocol Sodium Chloride 10 ml 01/25/19 22:00 01/26/19 02:31 Sodium Chloride Flush Syringe 10 Ml IV Not Given BID [facility] Sodium Chloride 10 ml 01/25/19 17:46 Sodium Chloride Flush Syringe 10 Ml IV PRN PRN LINE FLUSH
[2019-01-26] MEDS ORDERED: LANTUS SUB-Q ONE (10:00)
[2019-01-26] MEDS: HEPARIN SUB-Q SCH ×2 (10:12→22:43)
--- NOTE | 2019-01-26 10:20 | XRay Report ---
AP ABDOMEN: HISTORY: Dobbhoff tube placement.. The distal tip of the Dobbhoff tube terminates in the antrum of the stomach or just within the duodenal bulb. The abdominal gas pattern is unremarkable. No masses or organomegaly is identified and there is no gross evidence of free air or fluid. No significant soft tissue calcifications are noted. IMPRESSION: Unremarkable abdomen. Dobbhoff tube as described.
--- NOTE | 2019-01-26 10:29 | Ultrasound Report ---
ULTRASOUND RENAL BILATERAL HISTORY: Acute kidney injury. TECHNIQUE: transabdominal ultrasound with color Doppler interrogation. COMPARISON: none. FINDINGS: The right kidney measures 10.8 x 5.5 x 5.9cm. Right renal cortex: 1.4cm. The left kidney measures 11.8 x 5.9 x 6.4cm. Left renal cortex: 1.4cm. The kidneys are normal size, contour and position. There is increased renal cortical echotexture bilaterally consistent with nonspecific renal parenchymal disease. Corticomedullary differentiation is preserved. No evidence for cystic disease, mass, nephrolithiasis, hydronephrosis or perinephric fluid. The bladder is decompressed with a Hurtado catheter. IMPRESSION: Nonspecific renal parenchymal disease. No focal renal lesion or hydronephrosis.
[2019-01-26] MEDS ORDERED: SIMPLE SYRUP FEEDTUBE PRN ×2 (11:47)
[2019-01-26] MEDS ORDERED: SODIUM BICARBONATE FEEDTUBE PRN (11:47)
[2019-01-26] MEDS ORDERED: PANCREAZE DR 10,500 UNIT FEEDTUBE PRN (11:47)
--- NOTE | 2019-01-26 12:40 | XRay Report ---
AP ABDOMEN: HISTORY: Replacement of Dobbhoff tube, patient pulled out. The Dobbhoff tube has been reinserted and terminates in the body of the stomach. The remainder of the examination is unchanged since earlier today at 0958 hours. IMPRESSION: The Dobbhoff tube terminates in the body of the stomach.
--- NOTE | 2019-01-26 15:38 | Progress Note ---
Assessment and Plan Critical statement The high probability of a clinically significant sudden or life threatening deteriration of the pulmonary cardiac renal systems required my full and direct attention,interventon and personal management ..The aggrgate critical time was 40 minutes.This time is in addition to time spent performing reported procedures but includes the following Data review and interpretation Patient assesment and monitoring of vital signs Documentation Medication orders and management - Patient Problems (1) Acute metabolic encephalopathy Current Visit: Yes Status: Acute Plan to address problem: Sec to Uremia and possible sepsis and dehydration Mental status improving (2) MYRTLE (acute kidney injury) Current Visit: Yes Status: Acute Plan to address problem: Patient has a high BUN/Cr of 185/5.7 improving with fluids Nephrology consult ATN Serial BMP (3) Acute hypernatremia Current Visit: Yes Status: Acute Plan to address problem: IV D5w at 125 /hr Hemoconcentration (4) Hyperkalemia Current Visit: Yes Status: Deleted Plan to address problem: Patient given Calcium Gluconate NaHco3 and Kayexalate Improved (5) Metabolic acidosis with increased anion gap and reduced excretion of inorganic acids Current Visit: Yes Status: Acute Plan to address problem: Sec to above (6) Sepsis Current Visit: Yes Status: Acute Qualifiers: Sepsis type: sepsis due to unspecified organism Qualified Code(s): A41.9 - Sepsis, unspecified organism Plan to address problem: Source of infection unclear IV Cefepime and Vancomycin started (7) IDDM (insulin dependent diabetes mellitus) Current Visit: Yes Status: Chronic Plan to address problem: Coverage for now Check A1c (8) HTN (hypertension) Current Visit: Yes Status: Chronic Qualifiers: Hypertension type: essential hypertension Qualified Code(s): I10 - Essential (primary) hypertension Plan to address problem: Cont antihyprtensives as necessary (9) HLD (hyperlipidemia) Current Visit: Yes Status: Chronic Qualifiers: Hyperlipidemia type: mixed hyperlipidemia Qualified Code(s): E78.2 - Mixed hyperlipidemia Plan to address problem: Hold statins (10) BPH (benign prostatic hyperplasia) Current Visit: Yes Status: Chronic Qualifiers: Lower urinary tract symptom presence: symptoms present Plan to address problem: Cont Flomax (11) DVT prophylaxis Current Visit: Yes Status: Acute Plan to address problem: on Heparin and GI prophylaxis Subjective Date of service: 01/26/19 Principal diagnosis: MYRTLE/Hypernatremia Interval history: More alert and oriented Objective - Constitutional Vitals: Vital Signs - 12hr 01/26/19 01/26/19 01/26/19 04:00 08:00 10:00 Pulse Rate 81 Pulse Rate [ 84 From Monitor] Respiratory 24 17 Rate O2 Sat by Pulse 98 100 Oximetry 01/26/19 12:00 Pulse Rate Pulse Rate [ 74 From Monitor] Respiratory 16 Rate O2 Sat by Pulse 100 Oximetry General appearance: Present: no acute distress, well-nourished - EENT Eyes: PERRL, EOM intact ENT: hearing intact, clear oral mucosa Ears: bilateral: normal - Neck Neck: supple, normal ROM - Respiratory Respiratory effort: normal Respiratory: bilateral: CTA - Breasts Breasts: normal - Cardiovascular Rhythm: regular Heart Sounds: Present: S1 & S2. Absent: gallop, rub Extremities: pulses intact, No edema, normal color, Full ROM - Gastrointestinal General gastrointestinal: Present: soft, non-tender, non-distended, normal bowel sounds - Genitourinary Male genitourinary: normal - Integumentary Integumentary: clear, warm, dry - Musculoskeletal Musculoskeletal: strength equal bilaterally, generalized weakness - Neurologic Neurologic: moves all extremities - Psychiatric Psychiatric: appropriate mood/affect, intact judgment & insight, memory intact, depressed - Labs CBC & Chem 7: 01/28/19 06:04 01/28/19 06:04 Labs: Abnormal lab results 01/25/19 01/25/19 01/25/19 Range/Units 16:03 16:03 17:11 RBC (3.65-5.03) M/mm3 MCV (84-94) fl MCH (28-32) pg MCHC (32-34) % RDW (13.2-15.2) % Lymph % (Auto) (13.4-35.0) % [place] % (Auto) (0.0-7.3) % Lymph # (1.2-5.4) K/mm3 Baso # (0.0-0.1) K/mm3 Seg Neutrophils % (40.0-70.0) % Seg Neutrophils # (1.8-7.7) K/mm3 Sodium (137-145) mmol/L Chloride (98-107) mmol/L Carbon Dioxide (22-30) mmol/L BUN (9-20) mg/dL Creatinine (0.8-1.5) mg/dL Glucose (75-100) mg/dL POC Glucose 346 H (70-105) Lactic Acid 2.20 H* 2.30 H* (0.7-2.0) mmol/L Calcium (8.4-10.2) mg/dL Troponin T (0.00-0.029) ng/mL Albumin (3.9-5) g/dL 01/25/19 01/25/19 01/26/19 Range/Units 18:50 23:08 00:22 RBC (3.65-5.03) M/mm3 MCV (84-94) fl MCH (28-32) pg MCHC (32-34) % RDW (13.2-15.2) % Lymph % (Auto) (13.4-35.0) % [place] % (Auto) (0.0-7.3) % Lymph # (1.2-5.4) K/mm3 Baso # (0.0-0.1) K/mm3 Seg Neutrophils % (40.0-70.0) % Seg Neutrophils # (1.8-7.7) K/mm3 Sodium 162 H* (137-145) mmol/L Chloride 125.2 H (98-107) mmol/L Carbon Dioxide (22-30) mmol/L BUN 180 H (9-20) mg/dL Creatinine 5.1 H (0.8-1.5) mg/dL Glucose 438 H (75-100) mg/dL POC Glucose 480 H (70-105) Lactic Acid (0.7-2.0) mmol/L Calcium (8.4-10.2) mg/dL Troponin T 0.045 H D (0.00-0.029) ng/mL Albumin (3.9-5) g/dL 01/26/19 01/26/19 01/26/19 Range/Units 02:16 04:25 04:25 RBC 5.21 H (3.65-5.03) M/mm3 MCV 80 L (84-94) fl MCH 25 L (28-32) pg MCHC 31 L (32-34) % RDW 18.0 H (13.2-15.2) % Lymph % (Auto) 8.2 L (13.4-35.0) % [place] % (Auto) 7.6 H (0.0-7.3) % Lymph # 0.8 L (1.2-5.4) K/mm3 Baso # 0.2 H (0.0-0.1) K/mm3 Seg Neutrophils % 81.6 H (40.0-70.0) % Seg Neutrophils # 8.3 H (1.8-7.7) K/mm3 Sodium 158 H (137-145) mmol/L Chloride 122.9 H (98-107) mmol/L Carbon Dioxide 21 L (22-30) mmol/L BUN 163 H (9-20) mg/dL Creatinine 3.9 H (0.8-1.5) mg/dL Glucose 465 H (75-100) mg/dL POC Glucose 462 H (70-105) Lactic Acid (0.7-2.0) mmol/L Calcium 7.8 L (8.4-10.2) mg/dL Troponin T (0.00-0.029) ng/mL Albumin 2.3 L (3.9-5) g/dL 01/26/19 01/26/19 01/26/19 Range/Units 04:25 05:33 10:08 RBC (3.65-5.03) M/mm3 MCV (84-94) fl MCH (28-32) pg MCHC (32-34) % RDW (13.2-15.2) % Lymph % (Auto) (13.4-35.0) % [place] % (Auto) (0.0-7.3) % Lymph # (1.2-5.4) K/mm3 Baso # (0.0-0.1) K/mm3 Seg Neutrophils % (40.0-70.0) % Seg Neutrophils # (1.8-7.7) K/mm3 Sodium 160 H (137-145) mmol/L Chloride 123.9 H (98-107) mmol/L Carbon Dioxide 19 L (22-30) mmol/L BUN 161 H (9-20) mg/dL Creatinine 3.9 H (0.8-1.5) mg/dL Glucose 468 H (75-100) mg/dL POC Glucose 309 H 316 H (70-105) Lactic Acid (0.7-2.0) mmol/L Calcium 7.8 L (8.4-10.2) mg/dL Troponin T 0.031 H D (0.00-0.029) ng/mL Albumin (3.9-5) g/dL 01/26/19 Range/Units 14:30 RBC (3.65-5.03) M/mm3 MCV (84-94) fl MCH (28-32) pg MCHC (32-34) % RDW (13.2-15.2) % Lymph % (Auto) (13.4-35.0) % [place] % (Auto) (0.0-7.3) % Lymph # (1.2-5.4) K/mm3 Baso # (0.0-0.1) K/mm3 Seg Neutrophils % (40.0-70.0) % Seg Neutrophils # (1.8-7.7) K/mm3 Sodium (137-145) mmol/L Chloride (98-107) mmol/L Carbon Dioxide (22-30) mmol/L BUN (9-20) mg/dL Creatinine (0.8-1.5) mg/dL Glucose (75-100) mg/dL POC Glucose 167 H (70-105) Lactic Acid (0.7-2.0) mmol/L Calcium (8.4-10.2) mg/dL Troponin T (0.00-0.029) ng/mL Albumin (3.9-5) g/dL
[2019-01-26] MEDS ORDERED: NACL 0.45% 50 ML IV PRN (15:44)
[2019-01-26 16:55] LABS: Calcium 8.3 mg/dL (8.4-10.2)
[2019-01-26] MEDS: LANTUS SUB-Q SCH ×2 (22:43→22:46)
[2019-01-26] MEDS: MAXIPIME/NS 1 GM/100 ML 1 GM/100 ML BAG IV SCH (22:43)
[2019-01-27] MEDS: HumaLOG SUB-Q SCH ×5 (03:16→19:03)
[2019-01-27 07:52] LABS: Basophils % (Auto) 0.1 % (0.0-1.8); Eosinophils # (Auto) 0.3 K/mm3 (0.0-0.4); Eosinophils % (Auto) 4.3 % (0.0-4.3); Hematocrit 37.5 % (35.5-45.6); Hemoglobin 11.8 gm/dl (11.8-15.2); Lymphocytes # (Auto) 1.3 K/mm3 (1.2-5.4); Lymphocytes % (Auto) 16.4 % (13.4-35.0); Mean Corpuscular HGB Conc 31 % (32-34); Mean Corpuscular Volume 79 fl (84-94); Monocytes # (Auto) 0.6 K/mm3 (0.0-0.8); Monocytes % (Auto) 8.1 % (0.0-7.3); Platelet Count 160 K/mm3 (140-440); Red Blood Count 4.77 M/mm3 (3.65-5.03); Red Cell Distribution Width 17.7 % (13.2-15.2)
[2019-01-27 08:07] LABS: Calcium 8.3 mg/dL (8.4-10.2)
--- NOTE | 2019-01-27 09:12 | Progress Note ---
Subjective Interval history: Patient was seen today for follow-up on multiple renal related issues Events of this hospitalization noted appears to be is more alert Vitals labs intake output medications were reviewed Social history: Reviewed Allergies: Reviewed Family history: Reviewed Physical examination HEENT: Oral mucosa Dry no pallor or icterus Neck: Supple no JVD Chest: Clear to auscultation anteriorly CVS: Regular rate and rhythm S1 and S2 heard Abdomen: Soft nontender no suprapubic masses no organomegaly appreciable Extremity: Dry skin no edema reduced skin turgor Musculoskeletal: No joint effusion noted in knees and ankle Neurological: altered mental status Dermatology: No petechial rashes Psychiatry: No evidence of any agitation and aggression noted Assessment and plan Acute kidney injury: Renal function appears to be improving slowly, likely etiology appears to be severe renal ischemia, acute tubular necrosis patient does not require any renal replacement therapy for now, signed creatinine 0.7 admission creatinine 5.7 Renal ultrasonogram shows nonspecific changes and echogenicity? Chronic kidney disease underlying, patient does have multiple risk factor however Encephalopathy: Multifactorial patient appears to be slowly responding, currently in the medical floor initially was in ICU Admitted with shock of unclear etiology was also noted to be hyperkalemic currently doing much better, admission potassium was 6.0 Hypernatremia continue to monitor and follow, current sodium around 157 continue with hydration Lactic acidosis metabolic acidosis needs ongoing monitoring and follow-up Slow but consistent improvement in renal function and avoid nephrotoxic medication continue to monitor renal function for now We'll continue to follow and make recommendation from renal standpoint Objective - Vital Signs Vital signs: Vital Signs - 12hr 01/26/19 01/27/19 01/27/19 23:56 00:14 04:00 Temperature 98.1 F 97.8 F Pulse Rate 64 84 Respiratory 18 18 Rate Blood Pressure 141/85 Blood Pressure 128/82 [Left] O2 Sat by Pulse 97 Oximetry 01/27/19 07:25 Temperature 97.3 F L Pulse Rate 93 H Respiratory 18 Rate Blood Pressure 128/84 Blood Pressure [Left] O2 Sat by Pulse 99 Oximetry - Lab 01/27/19 06:33 01/27/19 06:33 Most recent lab results Calcium 8.3 mg/dL (8.4-10.2) L 01/27/19 06:33 Magnesium 2.30 mg/dL (1.7-2.3) 01/26/19 20:14 Medications & Allergies - Medications Allergies/Adverse Reactions: Allergies No Known Allergies Allergy (Unverified 02/07/16 02:00) Home Medications: Home Medications Medication Instructions Recorded Confirmed Last Taken Type Citalopram Hydrobromide [celeXA] 20 mg PO DAILY 02/07/16 01/25/19 02/06/16 History Acetaminophen [Tylenol] 650 mg PO Q4HR PRN 01/25/19 01/25/19 Unknown History AtorvaSTATin [Lipitor] 40 mg PO QHS 01/25/19 01/25/19 Unknown History Insulin Lispro [HumaLOG VIAL] See Protocol SUB-Q BID 01/25/19 01/25/19 Unknown History LORazepam [Ativan] 0.5 mg PO Q8H PRN 01/25/19 01/25/19 Unknown History Latanoprost [Xalatan] 1 drop OU HS 01/25/19 01/25/19 Unknown History Lisinopril [Zestril] 20 mg PO QDAY 01/25/19 01/25/19 Unknown History Magnesium Oxide [Mag-Ox] 400 mg PO QDAY 01/25/19 01/25/19 Unknown History Quetiapine Fumarate [SEROquel] 50 mg PO TID 01/25/19 01/25/19 Unknown History Thiamine [Vitamin B-1] 100 mg PO AC 01/25/19 01/25/19 Unknown History Timolol 0.5% [Timoptic] 1 drop OU BID 01/25/19 01/25/19 Unknown History hydroCHLOROthiazide [HCTZ] 25 mg PO QDAY 01/25/19 01/25/19 Unknown History Active Medications: Generic Name Dose Route Start Last Admin Trade Name Freq PRN Reason Stop Dose Admin Lipase/Protease/Amylase 1 each 01/26/19 11:47 Pancreaze 10,500 Unit FEEDTUBE PRN PRN For Clogged Feeding Tube Heparin Sodium (Porcine) 5,000 unit 01/25/19 22:00 01/26/19 22:43 Heparin SUB-Q 5,000 unit Q12HR NIKOLAS Administration Cefepime HCl 1 gm in 100 mls @ 200 mls/hr 01/25/19 23:00 01/26/19 22:43 Maxipime/Ns 1 Gm/100 Ml IV 01/27/19 22:59 200 mls/hr Q24HR@2200 NIKOLAS Administration Protocol Insulin Glargine 35 units 01/26/19 22:00 01/26/19 22:46 Lantus SUB-Q Not Given QHS [facility] Insulin Human Lispro 0 unit 01/25/19 23:15 01/27/19 06:22 Humalog SUB-Q 4 unit Q4HR [facility] Administration Protocol Pneumococcal Polyvalent Vaccine 0.5 ml 01/27/19 12:00 Pneumovax 23 IM 01/27/19 12:01 .ONCE ONE Simple Syrup 15 ml 01/26/19 11:47 Simple Syrup FEEDTUBE PRN PRN Hypoglycemia Simple Syrup 30 ml 01/26/19 11:47 Simple Syrup FEEDTUBE PRN PRN Hypoglycemia Sodium Bicarbonate 325 mg 01/26/19 11:47 Sodium Bicarbonate FEEDTUBE PRN PRN For Clogged Feeding Tube Sodium Chloride 10 ml 01/25/19 22:00 01/26/19 22:44 Sodium Chloride Flush Syringe 10 Ml IV 10 ml BID NIKOLAS Administration Sodium Chloride 10 ml 01/25/19 17:46 Sodium Chloride Flush Syringe 10 Ml IV PRN PRN LINE FLUSH Sodium Chloride 100 ml 01/26/19 15:44 Nacl 0.45% 50 Ml IV 01/27/19 23:59 DIRECT PRN LINE FLUSH
[2019-01-27] MEDS: SODIUM CHLORIDE FLUSH SYRINGE 10 ML IV SCH ×2 (10:01→23:10)
[2019-01-27] MEDS: HEPARIN SUB-Q SCH ×2 (10:02→23:10)
[2019-01-27] MEDS ORDERED: PNEUMOVAX 23 IM ONE (12:00)
--- NOTE | 2019-01-27 20:16 | Progress Note ---
Assessment and Plan Patient awake and resting on 1 1/2 litres O2. O2 saturation 98%.Patient not oriented.No acute respiratory distress. - Patient Problems (1) Metabolic acidosis with increased anion gap and reduced excretion of inor ganic acids Current Visit: Yes Status: Acute Plan to address problem: Obtaining ABGs. (2) IDDM (insulin dependent diabetes mellitus) Current Visit: Yes Status: Chronic Plan to address problem: Management as per primary care. (3) HTN (hypertension) Current Visit: Yes Status: Chronic Qualifiers: Hypertension type: essential hypertension Qualified Code(s): I10 - Essential (primary) hypertension Plan to address problem: Management as per primary care. (4) Acute metabolic encephalopathy Current Visit: Yes Status: Acute Plan to address problem: Management as per primary care. (5) MYRTLE (acute kidney injury) Current Visit: Yes Status: Acute Plan to address problem: Management as per Nephrology. Subjective Date of service: 01/27/19 Interval history: Patient awake and resting on 1 1/2 litres O2. O2 saturation 98%.Patient not oriented.No acute respiratory distress. Objective Vital Signs - 12hr 01/27/19 01/27/19 01/27/19 10:00 12:03 17:39 Temperature 98.0 F 98.7 F Pulse Rate 76 101 H 106 H Pulse Rate [ 76 From Monitor] Respiratory 20 18 14 Rate Blood Pressure 121/77 120/74 O2 Sat by Pulse 98 97 98 Oximetry Constitutional: no acute distress, alert, other (Not oriented.) Eyes: non-icteric ENT: oropharynx moist Neck: supple, no lymphadenopathy Effort: normal Ascultation: Bilateral: diminished breath sounds Cardiovascular: regular rate and rhythm Gastrointestinal: normoactive bowel sounds, soft, non-tender Integumentary: normal Extremities: no cyanosis, no edema Neurologic: non-focal exam, pupils equal and round Psychiatric: other (Can Not asses due to his mental status.) CBC and BMP: 01/27/19 06:33 01/27/19 06:33 Abnormal lab findings: Abnormal Labs 01/25/19 01/25/19 01/25/19 13:31 13:31 13:31 WBC 12.0 H RBC 6.00 H Hct 47.7 H MCV 80 L MCH 25 L MCHC 31 L RDW 18.1 H Lymph % (Auto) 10.4 L [place] % (Auto) 9.3 H Lymph # [place] # 1.1 H Baso # Seg Neutrophils % 78.5 H Seg Neutrophils # 9.5 H Sodium 159 H Potassium 6.0 H Chloride 119.0 H Carbon Dioxide BUN 185 H Creatinine 5.7 H D Glucose 433 H POC Glucose Lactic Acid 2.60 H* Calcium Total Creatine Kinase 294 H Troponin T 0.080 H Albumin 2.6 L Triglycerides 172 H HDL Cholesterol 30 L 01/25/19 01/25/19 01/25/19 16:03 16:03 17:11 WBC RBC Hct MCV MCH MCHC RDW Lymph % (Auto) [place] % (Auto) Lymph # [place] # Baso # Seg Neutrophils % Seg Neutrophils # Sodium Potassium Chloride Carbon Dioxide BUN Creatinine Glucose POC Glucose 346 H Lactic Acid 2.20 H* 2.30 H* Calcium Total Creatine Kinase Troponin T Albumin Triglycerides HDL Cholesterol 01/25/19 01/25/19 01/26/19 18:50 23:08 00:22 WBC RBC Hct MCV MCH MCHC RDW Lymph % (Auto) [place] % (Auto) Lymph # [place] # Baso # Seg Neutrophils % Seg Neutrophils # Sodium 162 H* Potassium Chloride 125.2 H Carbon Dioxide BUN 180 H Creatinine 5.1 H Glucose 438 H POC Glucose 480 H Lactic Acid Calcium Total Creatine Kinase Troponin T 0.045 H D Albumin Triglycerides HDL Cholesterol 01/26/19 01/26/19 01/26/19 02:16 04:25 04:25 WBC RBC 5.21 H Hct MCV 80 L MCH 25 L MCHC 31 L RDW 18.0 H Lymph % (Auto) 8.2 L [place] % (Auto) 7.6 H Lymph # 0.8 L [place] # Baso # 0.2 H Seg Neutrophils % 81.6 H Seg Neutrophils # 8.3 H Sodium 158 H Potassium Chloride 122.9 H Carbon Dioxide 21 L BUN 163 H Creatinine 3.9 H Glucose 465 H POC Glucose 462 H Lactic Acid Calcium 7.8 L Total Creatine Kinase Troponin T Albumin 2.3 L Triglycerides HDL Cholesterol 01/26/19 01/26/19 01/26/19 04:25 05:33 10:08 WBC RBC Hct MCV MCH MCHC RDW Lymph % (Auto) [place] % (Auto) Lymph # [place] # Baso # Seg Neutrophils % Seg Neutrophils # Sodium 160 H Potassium Chloride 123.9 H Carbon Dioxide 19 L BUN 161 H Creatinine 3.9 H Glucose 468 H POC Glucose 309 H 316 H Lactic Acid Calcium 7.8 L Total Creatine Kinase Troponin T 0.031 H D Albumin Triglycerides HDL Cholesterol 01/26/19 01/26/19 01/27/19 14:30 16:11 03:18 WBC RBC Hct MCV MCH MCHC RDW Lymph % (Auto) [place] % (Auto) Lymph # [place] # Baso # Seg Neutrophils % Seg Neutrophils # Sodium 160 H Potassium 3.4 L D Chloride 124.8 H Carbon Dioxide BUN 141 H Creatinine 2.9 H Glucose 126 H POC Glucose 167 H 184 H Lactic Acid Calcium 8.3 L Total Creatine Kinase Troponin T Albumin Triglycerides HDL Cholesterol 01/27/19 01/27/19 01/27/19 06:23 06:33 06:33 WBC RBC Hct MCV 79 L MCH 25 L MCHC 31 L RDW 17.7 H Lymph % (Auto) [place] % (Auto) 8.1 H Lymph # [place] # Baso # Seg Neutrophils % 71.1 H Seg Neutrophils # Sodium 157 H Potassium Chloride 121.4 H Carbon Dioxide BUN 117 H Creatinine 1.9 H Glucose 200 H POC Glucose 219 H Lactic Acid Calcium 8.3 L Total Creatine Kinase Troponin T Albumin Triglycerides HDL Cholesterol 01/27/19 01/27/19 01/27/19 11:13 12:46 16:10 WBC RBC Hct MCV MCH MCHC RDW Lymph % (Auto) [place] % (Auto) Lymph # [place] # Baso # Seg Neutrophils % Seg Neutrophils # Sodium Potassium Chloride Carbon Dioxide BUN Creatinine Glucose POC Glucose 200 H 205 H 230 H Lactic Acid Calcium Total Creatine Kinase Troponin T Albumin Triglycerides HDL Cholesterol Chest x-ray: report reviewed (No acute cardio pulmonary process.), image reviewed
[2019-01-27] MEDS: MAXIPIME/NS 1 GM/100 ML 1 GM/100 ML BAG IV SCH (23:09)
[2019-01-28] MEDS: LANTUS SUB-Q SCH (00:25)
[2019-01-28] MEDS: HumaLOG SUB-Q SCH ×8 (00:25→22:00)
[2019-01-28 06:19] LABS: Basophils % (Auto) 0.3 % (0.0-1.8); Eosinophils # (Auto) 0.2 K/mm3 (0.0-0.4); Eosinophils % (Auto) 3.1 % (0.0-4.3); Hematocrit 35.9 % (35.5-45.6); Hemoglobin 11.5 gm/dl (11.8-15.2); Lymphocytes # (Auto) 1.3 K/mm3 (1.2-5.4); Lymphocytes % (Auto) 19.1 % (13.4-35.0); Mean Corpuscular HGB Conc 32 % (32-34); Mean Corpuscular Volume 77 fl (84-94); Monocytes # (Auto) 0.6 K/mm3 (0.0-0.8); Monocytes % (Auto) 8.7 % (0.0-7.3); Platelet Count 169 K/mm3 (140-440); Red Blood Count 4.63 M/mm3 (3.65-5.03); Red Cell Distribution Width 17.4 % (13.2-15.2)
[2019-01-28 06:43] LABS: BUN/Creatinine Ratio 54; Blood Urea Nitrogen 75 mg/dL (9-20); Calcium 8.8 mg/dL (8.4-10.2); Hemolysis Index 58
--- NOTE | 2019-01-28 07:44 | Progress Note ---
Assessment and Plan - Patient Problems (1) Acute metabolic encephalopathy Current Visit: Yes Status: Acute Plan to address problem: Sec to Uremia and possible sepsis and dehydration Mental status improving Able to respond to questions (2) MYRTLE (acute kidney injury) Current Visit: Yes Status: Acute Plan to address problem: Patient has a high BUN/Cr of 185/5.7----117/1.9 Improving with fluids Nephrology consult ATN Serial BMP (3) Acute hypernatremia Current Visit: Yes Status: Acute Plan to address problem: IV D5w at 125 /hr Na level 159 Cont IV FLuids (4) Hyperkalemia Current Visit: Yes Status: Deleted Plan to address problem: Patient given Calcium Gluconate NaHco3 and Kayexalate Improved (5) Metabolic acidosis with increased anion gap and reduced excretion of inorganic acids Current Visit: Yes Status: Acute Plan to address problem: Sec to above Improved (6) Sepsis Current Visit: Yes Status: Acute Qualifiers: Sepsis type: sepsis due to unspecified organism Qualified Code(s): A41.9 - Sepsis, unspecified organism Plan to address problem: Source of infection unclear IV Cefepime and Vancomycin started Will D/c if afebrile (7) IDDM (insulin dependent diabetes mellitus) Current Visit: Yes Status: Chronic Plan to address problem: Coverage for now (8) HTN (hypertension) Current Visit: Yes Status: Chronic Qualifiers: Hypertension type: essential hypertension Qualified Code(s): I10 - Essential (primary) hypertension Plan to address problem: Cont antihyprtensives as necessary (9) HLD (hyperlipidemia) Current Visit: Yes Status: Chronic Qualifiers: Hyperlipidemia type: mixed hyperlipidemia Qualified Code(s): E78.2 - Mixed hyperlipidemia Plan to address problem: Hold statins (10) BPH (benign prostatic hyperplasia) Current Visit: Yes Status: Chronic Qualifiers: Lower urinary tract symptom presence: symptoms present Plan to address problem: Cont Flomax (11) DVT prophylaxis Current Visit: Yes Status: Acute Subjective Date of service: 01/27/19 Principal diagnosis: MYRTLE/Hypernatremia Interval history: More alert and oriented Did not clear swallow test Dobhoff in place Objective - Constitutional Vitals: Vital Signs - 12hr 01/27/19 01/27/19 01/28/19 20:08 22:00 00:02 Temperature 98.8 F 98.2 F Pulse Rate 104 H Pulse Rate [ 90 Left Radial] Respiratory 20 18 18 Rate Blood Pressure 121/76 119/72 O2 Sat by Pulse 98 Oximetry 01/28/19 01/28/19 00:59 04:31 Temperature 99.1 F Pulse Rate 94 H 109 H Pulse Rate [ Left Radial] Respiratory 20 Rate Blood Pressure 123/76 O2 Sat by Pulse 99 96 Oximetry General appearance: Present: no acute distress, well-nourished - EENT Eyes: PERRL, EOM intact ENT: hearing intact, clear oral mucosa Ears: bilateral: normal - Neck Neck: supple, normal ROM - Respiratory Respiratory effort: normal Respiratory: bilateral: CTA - Breasts Breasts: normal - Cardiovascular Heart rate: 78 Rhythm: regular Heart Sounds: Present: S1 & S2. Absent: gallop, rub Extremities: no ischemia, pulses intact, No edema, normal color, Full ROM - Gastrointestinal General gastrointestinal: Present: soft, non-tender, non-distended, normal bowel sounds - Genitourinary Male genitourinary: normal - Integumentary Integumentary: clear, warm, dry - Musculoskeletal Musculoskeletal: left sided weakness, generalized weakness - Neurologic Neurologic: focal deficits - Psychiatric Psychiatric: memory intact, appropriate mood/affect, intact judgment & insight - Labs CBC & Chem 7: 01/28/19 06:04 01/28/19 06:04 Labs: Abnormal lab results 01/27/19 01/27/19 01/27/19 Range/Units 06:33 06:33 11:13 Hgb (11.8-15.2) gm/dl MCV 79 L (84-94) fl MCH 25 L (28-32) pg MCHC 31 L (32-34) % RDW 17.7 H (13.2-15.2) % [place] % (Auto) 8.1 H (0.0-7.3) % Seg Neutrophils % 71.1 H (40.0-70.0) % Sodium 157 H (137-145) mmol/L Potassium (3.6-5.0) mmol/L Chloride 121.4 H (98-107) mmol/L BUN 117 H (9-20) mg/dL Creatinine 1.9 H (0.8-1.5) mg/dL Glucose 200 H (75-100) mg/dL POC Glucose 200 H (70-105) Calcium 8.3 L (8.4-10.2) mg/dL 01/27/19 01/27/19 01/28/19 Range/Units 12:46 16:10 00:09 Hgb (11.8-15.2) gm/dl MCV (84-94) fl MCH (28-32) pg MCHC (32-34) % RDW (13.2-15.2) % [place] % (Auto) (0.0-7.3) % Seg Neutrophils % (40.0-70.0) % Sodium (137-145) mmol/L Potassium (3.6-5.0) mmol/L Chloride (98-107) mmol/L BUN (9-20) mg/dL Creatinine (0.8-1.5) mg/dL Glucose (75-100) mg/dL POC Glucose 205 H 230 H 177 H (70-105) Calcium (8.4-10.2) mg/dL 01/28/19 01/28/19 01/28/19 Range/Units 06:04 06:04 06:42 Hgb 11.5 L (11.8-15.2) gm/dl MCV 77 L (84-94) fl MCH 25 L (28-32) pg MCHC (32-34) % RDW 17.4 H (13.2-15.2) % [place] % (Auto) 8.7 H (0.0-7.3) % Seg Neutrophils % (40.0-70.0) % Sodium 159 H (137-145) mmol/L Potassium 3.3 L (3.6-5.0) mmol/L Chloride 123.1 H (98-107) mmol/L BUN 75 H (9-20) mg/dL Creatinine (0.8-1.5) mg/dL Glucose 310 H (75-100) mg/dL POC Glucose 384 H (70-105) Calcium (8.4-10.2) mg/dL
--- NOTE | 2019-01-28 09:14 | Progress Note ---
Subjective Principal diagnosis: MYRTLE/Hypernatremia Interval history: Patient was seen today for follow-up on multiple renal related issues Events of this hospitalization noted Patient appears to be is more alert Vitals labs intake output medications were reviewed Social history: Reviewed Allergies: Reviewed Family history: Reviewed Physical examination HEENT: Oral mucosa Dry no pallor or icterus Neck: Supple no JVD Chest: Clear to auscultation anteriorly CVS: Regular rate and rhythm S1 and S2 heard Abdomen: Soft nontender no suprapubic masses no organomegaly appreciable Extremity: Dry skin no edema reduced skin turgor Musculoskeletal: No joint effusion noted in knees and ankle Neurological: altered mental status Dermatology: No petechial rashes Psychiatry: No evidence of any agitation and aggression noted Assessment and plan Acute kidney injury in remission patient was pretty dehydrated, low-grade acute tubular necrosis could not be ruled out His intake and output is not being monitored Renal ultrasonogram shows nonspecific changes in echogenicity Encephalopathy: Appears to be multifactorial Patient was taking lisinopril and hydrochlorothiazide in the outpatient setting which should be avoided Hypernatremia: Continue to monitor sodium level patient needs ongoing free water Hypokalemia needs replacement orally can be given 40 mEq today follow-up on the potassium level Free water 300 mL every 4 hours at least for next 24-48 hours as tolerated Diabetes mellitus uncontrolled: Slowly improving Mild anemia: Likely due to volume resuscitation ration may have had anemia to begin with please monitor and follow We'll continue to follow and make recommendation from renal standpoint Objective - Vital Signs Vital signs: Vital Signs - 12hr 01/27/19 01/28/19 01/28/19 22:00 00:02 00:59 Temperature 98.2 F Pulse Rate 94 H Pulse Rate [ 90 Left Radial] Respiratory 18 18 Rate Blood Pressure 119/72 O2 Sat by Pulse 99 Oximetry 01/28/19 04:31 Temperature 99.1 F Pulse Rate 109 H Pulse Rate [ Left Radial] Respiratory 20 Rate Blood Pressure 123/76 O2 Sat by Pulse 96 Oximetry - Lab 01/28/19 06:04 01/28/19 06:04 Most recent lab results Calcium 8.8 mg/dL (8.4-10.2) 01/28/19 06:04 Magnesium 2.30 mg/dL (1.7-2.3) 01/26/19 20:14 Medications & Allergies - Medications Allergies/Adverse Reactions: Allergies No Known Allergies Allergy (Unverified 02/07/16 02:00) Home Medications: Home Medications Medication Instructions Recorded Confirmed Last Taken Type Citalopram Hydrobromide [celeXA] 20 mg PO DAILY 02/07/16 01/25/19 02/06/16 History Acetaminophen [Tylenol] 650 mg PO Q4HR PRN 01/25/19 01/25/19 Unknown History AtorvaSTATin [Lipitor] 40 mg PO QHS 01/25/19 01/25/19 Unknown History Insulin Lispro [HumaLOG VIAL] See Protocol SUB-Q BID 01/25/19 01/25/19 Unknown History LORazepam [Ativan] 0.5 mg PO Q8H PRN 01/25/19 01/25/19 Unknown History Latanoprost [Xalatan] 1 drop OU HS 01/25/19 01/25/19 Unknown History Lisinopril [Zestril] 20 mg PO QDAY 01/25/19 01/25/19 Unknown History Magnesium Oxide [Mag-Ox] 400 mg PO QDAY 01/25/19 01/25/19 Unknown History Quetiapine Fumarate [SEROquel] 50 mg PO TID 01/25/19 01/25/19 Unknown History Thiamine [Vitamin B-1] 100 mg PO AC 01/25/19 01/25/19 Unknown History Timolol 0.5% [Timoptic] 1 drop OU BID 01/25/19 01/25/19 Unknown History hydroCHLOROthiazide [HCTZ] 25 mg PO QDAY 01/25/19 01/25/19 Unknown History Active Medications: Generic Name Dose Route Start Last Admin Trade Name Pravinq PRN Reason Stop Dose Admin Lipase/Protease/Amylase 1 each 01/26/19 11:47 Pancreaze 10,500 Unit FEEDTUBE PRN PRN For Clogged Feeding Tube Heparin Sodium (Porcine) 5,000 unit 01/25/19 22:00 01/27/19 23:10 Heparin SUB-Q 5,000 unit Q12HR NIKOLAS Administration Insulin Glargine 35 units 01/26/19 22:00 01/28/19 00:25 Lantus SUB-Q 35 units QHS NIKOLAS Administration Insulin Human Lispro 0 unit 01/25/19 23:15 01/28/19 07:07 Humalog SUB-Q 10 unit Q4HR NIKOLAS Administration Protocol Simple Syrup 15 ml 01/26/19 11:47 Simple Syrup FEEDTUBE PRN PRN Hypoglycemia Simple Syrup 30 ml 01/26/19 11:47 Simple Syrup FEEDTUBE PRN PRN Hypoglycemia Sodium Bicarbonate 325 mg 01/26/19 11:47 Sodium Bicarbonate FEEDTUBE PRN PRN For Clogged Feeding Tube Sodium Chloride 10 ml 01/25/19 22:00 01/27/19 23:10 Sodium Chloride Flush Syringe 10 Ml IV 10 ml BID NIKOLAS Administration Sodium Chloride 10 ml 01/25/19 17:46 Sodium Chloride Flush Syringe 10 Ml IV PRN PRN LINE FLUSH
[2019-01-28] MEDS ORDERED: POTASSIUM CHLORIDE FEEDTUBE ONE (10:00)
[2019-01-28] MEDS: HEPARIN SUB-Q SCH ×2 (10:49→21:19)
[2019-01-28] MEDS: SODIUM CHLORIDE FLUSH SYRINGE 10 ML IV SCH ×2 (11:05→21:20)
--- NOTE | 2019-01-28 15:29 | Progress Note ---
Assessment and Plan Acute metabolic encephalopathy MYRTLE (acute kidney injury) Acute hypernatremia Hyperkalemia Metabolic acidosis with increased anion gap and reduced excretion of inorganic acids Sepsis IDDM (insulin dependent diabetes mellitus) HTN (hypertension) HLD (hyperlipidemia) BPH (benign prostatic hyperplasia) - continue supplemental oxygen and wean to keep O2 sat's > 90% - continue bronchodilators with pulmonary hygiene per RT - continue aspiration precautions - enteral nutrition as tolerated - continue volume resuscitation re: prerenal numbers - azotemia per nephrology otherwise - free water for hypernatremia - continue glycemic control with SSI for target BG < 180mg/dl - s/p AB's course - continue other care per attending/other consultants ... re-evaluate in am & prn Subjective Date of service: 01/28/19 Principal diagnosis: Ac. Encephalopathy; MYRTLE; Hypernatremia; Hyperkalemia; IDDM Interval history: Patient is seen today for: Acute metabolic encephalopathy; MYRTLE (acute kidney injury); Acute hypernatremia; Hyperkalemia; Metabolic acidosis with increased anion gap and reduced excretion of inorganic acids; Severe Sepsis; IDDM (insulin dependent diabetes mellitus) Seen and examined at bedside; 24hour events reviewed; nursing and respiratory care staff consulted; no adverse overnight events reported to me; resting peacefully in bed; alone in room; lethargic; denies acute pain issues but slow to respond; no emesis or overt aspiration reported or noted; remains on supple mental oxygen at 2L flow Objective Vital Signs - 12hr 01/28/19 01/28/19 01/28/19 04:31 10:00 12:19 Temperature 99.1 F 98.6 F Pulse Rate 109 H 109 H 113 H Respiratory 20 18 18 Rate Blood Pressure 123/76 117/84 O2 Sat by Pulse 96 98 99 Oximetry Constitutional: no acute distress, alert, other (middle aged chronically ill looking AAM) Eyes: non-icteric ENT: oropharynx moist Neck: supple, no lymphadenopathy, no JVD, other (no thyromegaly) Effort: mildly labored Ascultation: Bilateral: clear, diminished breath sounds Percussion: Bilateral: not dull Cardiovascular: regular rate and rhythm Gastrointestinal: normoactive bowel sounds, soft, non-tender, non-distended Integumentary: normal Extremities: no cyanosis, no edema, pulses normal, no ischemia or petechiae Neurologic: non-focal exam, pupils equal and round, other (hemiparesis) Psychiatric: other (Can Not asses due to his mental status.) CBC and BMP: 01/28/19 06:04 01/29/19 05:38 Abnormal lab findings: Abnormal Labs 01/25/19 01/25/19 01/25/19 13:31 13:31 13:31 WBC 12.0 H RBC 6.00 H Hgb Hct 47.7 H MCV 80 L MCH 25 L MCHC 31 L RDW 18.1 H Lymph % (Auto) 10.4 L [place] % (Auto) 9.3 H Lymph # [place] # 1.1 H Baso # Seg Neutrophils % 78.5 H Seg Neutrophils # 9.5 H Sodium 159 H Potassium 6.0 H Chloride 119.0 H Carbon Dioxide BUN 185 H Creatinine 5.7 H D Glucose 433 H POC Glucose Lactic Acid 2.60 H* Calcium Total Creatine Kinase 294 H Troponin T 0.080 H Albumin 2.6 L Triglycerides 172 H HDL Cholesterol 30 L 01/25/19 01/25/19 01/25/19 16:03 16:03 17:11 WBC RBC Hgb Hct MCV MCH MCHC RDW Lymph % (Auto) [place] % (Auto) Lymph # [place] # Baso # Seg Neutrophils % Seg Neutrophils # Sodium Potassium Chloride Carbon Dioxide BUN Creatinine Glucose POC Glucose 346 H Lactic Acid 2.20 H* 2.30 H* Calcium Total Creatine Kinase Troponin T Albumin Triglycerides HDL Cholesterol 01/25/19 01/25/19 01/26/19 18:50 23:08 00:22 WBC RBC Hgb Hct MCV MCH MCHC RDW Lymph % (Auto) [place] % (Auto) Lymph # [place] # Baso # Seg Neutrophils % Seg Neutrophils # Sodium 162 H* Potassium Chloride 125.2 H Carbon Dioxide BUN 180 H Creatinine 5.1 H Glucose 438 H POC Glucose 480 H Lactic Acid Calcium Total Creatine Kinase Troponin T 0.045 H D Albumin Triglycerides HDL Cholesterol 01/26/19 01/26/19 01/26/19 02:16 04:25 04:25 WBC RBC 5.21 H Hgb Hct MCV 80 L MCH 25 L MCHC 31 L RDW 18.0 H Lymph % (Auto) 8.2 L [place] % (Auto) 7.6 H Lymph # 0.8 L [place] # Baso # 0.2 H Seg Neutrophils % 81.6 H Seg Neutrophils # 8.3 H Sodium 158 H Potassium Chloride 122.9 H Carbon Dioxide 21 L BUN 163 H Creatinine 3.9 H Glucose 465 H POC Glucose 462 H Lactic Acid Calcium 7.8 L Total Creatine Kinase Troponin T Albumin 2.3 L Triglycerides HDL Cholesterol 01/26/19 01/26/19 01/26/19 04:25 05:33 10:08 WBC RBC Hgb Hct MCV MCH MCHC RDW Lymph % (Auto) [place] % (Auto) Lymph # [place] # Baso # Seg Neutrophils % Seg Neutrophils # Sodium 160 H Potassium Chloride 123.9 H Carbon Dioxide 19 L BUN 161 H Creatinine 3.9 H Glucose 468 H POC Glucose 309 H 316 H Lactic Acid Calcium 7.8 L Total Creatine Kinase Troponin T 0.031 H D Albumin Triglycerides HDL Cholesterol 01/26/19 01/26/19 01/27/19 14:30 16:11 03:18 WBC RBC Hgb Hct MCV MCH MCHC RDW Lymph % (Auto) [place] % (Auto) Lymph # [place] # Baso # Seg Neutrophils % Seg Neutrophils # Sodium 160 H Potassium 3.4 L D Chloride 124.8 H Carbon Dioxide BUN 141 H Creatinine 2.9 H Glucose 126 H POC Glucose 167 H 184 H Lactic Acid Calcium 8.3 L Total Creatine Kinase Troponin T Albumin Triglycerides HDL Cholesterol 01/27/19 01/27/19 01/27/19 06:23 06:33 06:33 WBC RBC Hgb Hct MCV 79 L MCH 25 L MCHC 31 L RDW 17.7 H Lymph % (Auto) [place] % (Auto) 8.1 H Lymph # [place] # Baso # Seg Neutrophils % 71.1 H Seg Neutrophils # Sodium 157 H Potassium Chloride 121.4 H Carbon Dioxide BUN 117 H Creatinine 1.9 H Glucose 200 H POC Glucose 219 H Lactic Acid Calcium 8.3 L Total Creatine Kinase Troponin T Albumin Triglycerides HDL Cholesterol 01/27/19 01/27/19 01/27/19 11:13 12:46 16:10 WBC RBC Hgb Hct MCV MCH MCHC RDW Lymph % (Auto) [place] % (Auto) Lymph # [place] # Baso # Seg Neutrophils % Seg Neutrophils # Sodium Potassium Chloride Carbon Dioxide BUN Creatinine Glucose POC Glucose 200 H 205 H 230 H Lactic Acid Calcium Total Creatine Kinase Troponin T Albumin Triglycerides HDL Cholesterol 01/28/19 01/28/19 01/28/19 00:09 06:04 06:04 WBC RBC Hgb 11.5 L Hct MCV 77 L MCH 25 L MCHC RDW 17.4 H Lymph % (Auto) [place] % (Auto) 8.7 H Lymph # [place] # Baso # Seg Neutrophils % Seg Neutrophils # Sodium 159 H Potassium 3.3 L Chloride 123.1 H Carbon Dioxide BUN 75 H Creatinine Glucose 310 H POC Glucose 177 H Lactic Acid Calcium Total Creatine Kinase Troponin T Albumin Triglycerides HDL Cholesterol 01/28/19 01/28/19 01/28/19 06:42 12:28 15:10 WBC RBC Hgb Hct MCV MCH MCHC RDW Lymph % (Auto) [place] % (Auto) Lymph # [place] # Baso # Seg Neutrophils % Seg Neutrophils # Sodium Potassium Chloride Carbon Dioxide BUN Creatinine Glucose POC Glucose 384 H 280 H 282 H Lactic Acid Calcium Total Creatine Kinase Troponin T Albumin Triglycerides HDL Cholesterol Chest x-ray: image reviewed (Right [employer] schunt; clear otherwise) Allied health notes reviewed: nursing
--- NOTE | 2019-01-28 17:20 | Progress Note ---
Assessment and Plan - Patient Problems (1) MYRTLE (acute kidney injury) Current Visit: Yes Status: Acute Plan to address problem: Acute kidney injury underlying etiology unknown at this particular time. Patient was not eating as well not drinking could be all profound prerenal azotemia, ATN. Continues to improve creatinine has decreased from 185/5.1 to 75/1.5 continue aggressive volume hydration nephrology is following. (2) Acute hypernatremia Current Visit: Yes Status: Acute Plan to address problem: Resolving with IV volume hydration free water. (3) Acute metabolic encephalopathy Current Visit: Yes Status: Acute Plan to address problem: Metabolic encephalopathy most likely multifactorial. 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 Maybe the dehydration has caused old CVA symptoms to recur. The note states patient seems to be improving however at this time appears heart because this is my first time seeing him. Patient still remains significantly lethargic. (4) Altered mental status Current Visit: Yes Status: Acute Plan to address problem: No clear etiology suspect underlying CVA. This possibly may not be new. (5) HLD (hyperlipidemia) Current Visit: Yes Status: Chronic Qualifiers: Hyperlipidemia type: mixed hyperlipidemia Qualified Code(s): E78.2 - Mixed hyperlipidemia Plan to address problem: Statin follow LDL. Goal LDL less than 70. (6) HTN (hypertension) Current Visit: Yes Status: Chronic Qualifiers: Hypertension type: essential hypertension Qualified Code(s): I10 - Essential (primary) hypertension Plan to address problem: Patient has fair control his blood pressure today. Continue current medications. (7) IDDM (insulin dependent diabetes mellitus) Current Visit: Yes Status: Chronic Plan to address problem: Patient's diabetes remains uncontrolled we'll increase Lantus to 40 units. History Interval history: pt remains lethargic. At present unable to answer any questions. I did speak with mother who was at bedside and answered all her questions to the best of my ability. If history of patient having a CVA at [facility]. Also spoke about time at the skilled nursing. Some questions were unable to answer what was going on last year. [place] tube Hospitalist Physical - Constitutional Vitals: Temp Pulse Resp BP Pulse Ox 97.9 F 110 H 18 105/79 99 01/28/19 16:36 01/28/19 16:36 01/28/19 16:36 01/28/19 16:36 01/28/19 16:36 General appearance: Present: no acute distress, well-nourished - EENT Eyes: Present: PERRL, EOM intact, conjunctival injection ENT: hearing decreased, poor dentition, no oropharyngeal erythema, no thrush - Neck Neck: Present: supple, normal ROM - Respiratory Respiratory: bilateral: CTA, diminished - Cardiovascular Rhythm: regular - Extremities Extremities: no ischemia, pulses intact, normal temperature, normal color, abnormal Extremity abnormal: edema, pulses diminished - Abdominal General gastrointestinal: soft, non-tender, hypoactive bowel sounds Results - Labs CBC & Chem 7: 01/28/19 06:04 01/28/19 06:04 Labs: Laboratory Last Values WBC 7.0 K/mm3 (4.5-11.0) 01/28/19 06:04 RBC 4.63 M/mm3 (3.65-5.03) 01/28/19 06:04 Hgb 11.5 gm/dl (11.8-15.2) L 01/28/19 06:04 Hct 35.9 % (35.5-45.6) 01/28/19 06:04 MCV 77 fl (84-94) L 01/28/19 06:04 MCH 25 pg (28-32) L 01/28/19 06:04 MCHC 32 % (32-34) 01/28/19 06:04 RDW 17.4 % (13.2-15.2) H 01/28/19 06:04 Plt Count 169 K/mm3 (140-440) 01/28/19 06:04 Lymph % (Auto) 19.1 % (13.4-35.0) 01/28/19 06:04 [place] % (Auto) 8.7 % (0.0-7.3) H 01/28/19 06:04 Eos % (Auto) 3.1 % (0.0-4.3) 01/28/19 06:04 Baso % (Auto) 0.3 % (0.0-1.8) 01/28/19 06:04 Lymph # 1.3 K/mm3 (1.2-5.4) 01/28/19 06:04 [place] # 0.6 K/mm3 (0.0-0.8) 01/28/19 06:04 Eos # 0.2 K/mm3 (0.0-0.4) 01/28/19 06:04 Baso # 0.0 K/mm3 (0.0-0.1) 01/28/19 06:04 Seg Neutrophils % 68.8 % (40.0-70.0) 01/28/19 06:04 Seg Neutrophils # 4.8 K/mm3 (1.8-7.7) 01/28/19 06:04 Sodium 159 mmol/L (137-145) H 01/28/19 06:04 Potassium 3.3 mmol/L (3.6-5.0) L 01/28/19 06:04 Chloride 123.1 mmol/L (98-107) H 01/28/19 06:04 Carbon Dioxide 24 mmol/L (22-30) 01/28/19 06:04 Anion Gap 15 mmol/L 01/28/19 06:04 BUN 75 mg/dL (9-20) H 01/28/19 06:04 Creatinine 1.4 mg/dL (0.8-1.5) 01/28/19 06:04 Estimated GFR > 60 ml/min 01/28/19 06:04 BUN/Creatinine Ratio 54 % 01/28/19 06:04 Glucose 310 mg/dL (75-100) H 01/28/19 06:04 POC Glucose 282 (70-105) H 01/28/19 15:10 Lactic Acid 1.40 mmol/L (0.7-2.0) 01/25/19 18:50 Calcium 8.8 mg/dL (8.4-10.2) 01/28/19 06:04 Magnesium 2.30 mg/dL (1.7-2.3) 01/26/19 20:14 Total Bilirubin 0.20 mg/dL (0.1-1.2) 01/26/19 04:25 AST 12 units/L (5-40) 01/26/19 04:25 ALT 17 units/L (7-56) 01/26/19 04:25 Alkaline Phosphatase 84 units/L (35-129) 01/26/19 04:25 Ammonia 51.0 umol/L (25-60) 01/25/19 13:31 Total Creatine Kinase 294 units/L (55-170) H 01/25/19 13:31 CK-MB (CK-2) 2.2 ng/mL (0.0-4.0) 01/25/19 13:31 CK-MB (CK-2) Rel Index 0.7 (0-4) 01/25/19 13:31 Troponin T 0.031 ng/mL (0.00-0.029) H D 01/26/19 04:25 Total Protein 6.4 g/dL (6.3-8.2) 01/26/19 04:25 Albumin 2.3 g/dL (3.9-5) L 01/26/19 04:25 Albumin/Globulin Ratio 0.6 % 01/26/19 04:25 Triglycerides 172 mg/dL (2-149) H 01/25/19 13:31 Cholesterol 148 mg/dL (50-199) 01/25/19 13:31 LDL Cholesterol Direct 82 mg/dL (50-130) 01/25/19 13:31 HDL Cholesterol 30 mg/dL (40-59) L 01/25/19 13:31 Cholesterol/HDL Ratio 4.93 % 01/25/19 13:31 TSH 4.020 mlU/mL (0.270-4.200) 01/25/19 13:31 Free T4 0.89 ng/dL (0.76-1.46) 01/25/19 13:31 Urine Color Yellow (Yellow) 01/25/19 15:00 Urine Turbidity Slightly-cloudy (Clear) 01/25/19 15:00 Urine pH 5.0 (5.0-7.0) 01/25/19 15:00 Ur Specific [place] 1.018 (1.003-1.030) 01/25/19 15:00 Urine Protein <15 mg/dl mg/dL (Negative) 01/25/19 15:00 Urine Glucose (UA) 50 mg/dL (Negative) 01/25/19 15:00 Urine Ketones Neg mg/dL (Negative) 01/25/19 15:00 Urine Blood Neg (Negative) 01/25/19 15:00 Urine Nitrite Neg (Negative) 01/25/19 15:00 Urine Bilirubin Neg (Negative) 01/25/19 15:00 Urine Urobilinogen 4.0 mg/dL (<2.0) 01/25/19 15:00 Ur Leukocyte Esterase Neg (Negative) 01/25/19 15:00 Urine WBC (Auto) 3.0 /HPF (0.0-6.0) 01/25/19 15:00 Urine RBC (Auto) 1.0 /HPF (0.0-6.0) 01/25/19 15:00 U Epithel Cells (Auto) < 1.0 /HPF (0-13.0) 01/25/19 15:00 Hyaline Casts 9 /LPF 01/25/19 15:00 Active Medications - Current Medications Current Medications: Generic Name Dose Route Start Last Admin Trade Name Freq PRN Reason Stop Dose Admin Lipase/Protease/Amylase 1 each 01/26/19 11:[address] 10,500 Unit FEEDTUBE PRN PRN For Clogged Feeding Tube Heparin Sodium (Porcine) 5,000 unit 01/25/19 22:00 01/28/19 10:49 Heparin SUB-Q 5,000 unit Q12HR NIKOLAS Administration Insulin Glargine 35 units 01/26/19 22:00 01/28/19 00:25 Lantus SUB-Q 35 units QHS NIKOLAS Administration Insulin Human Lispro 0 unit 01/25/19 23:15 01/28/19 14:40 Humalog SUB-Q 6 unit Q4HR NIKOLAS Administration Protocol Simple Syrup 15 ml 01/26/19 11:47 Simple Syrup FEEDTUBE PRN PRN Hypoglycemia Simple Syrup 30 ml 01/26/19 11:47 Simple Syrup FEEDTUBE PRN PRN Hypoglycemia Sodium Bicarbonate 325 mg 01/26/19 11:47 Sodium Bicarbonate FEEDTUBE PRN PRN For Clogged Feeding Tube Sodium Chloride 10 ml 01/25/19 22:00 01/28/19 11:05 Sodium Chloride Flush Syringe 10 Ml IV 10 ml BID NIKOLAS Administration Sodium Chloride 10 ml 01/25/19 17:46 Sodium Chloride Flush Syringe 10 Ml IV PRN PRN LINE FLUSH Nutrition/Malnutrition Assess - Dietary Evaluation Nutrition/Malnutrition Findings: Nutrition Notes Start: 01/26/19 08:45 Freq: Status: Active Protocol: Document 01/28/19 10:22 TW (Rec: 01/28/19 10:25 TW [id number]) Co-Sign 01/28/19 10:22 LP Nutrition Notes Initial or Follow up Reassessment Current Diagnosis Hypertension Other Pertinent Diagnosis Acute renail failure, Hyperkalemia, AMS, Dehydration Current Diet Nepo 1.8 at 50 ml/hr Labs/Tests Na 159 BUN 75 K: 3.3 BG 310 Pertinent Medications Reviewed Height 5 ft 6 in Weight 74.9 kg [place] Body Weight (kg) 64.54 BMI 26.6 Subjective/Other Information Follow up for TF tolerance. Per RN, pt is tolerating TF well. Observed [place] 1.8 running at goal rate (50 ml/hr ). Percent of energy/protein needs met: 100%/100% Burn Absent Trauma Absent #1 Nutrition Diagnosis Inadequate oral intake Diagnosis Progress(for reassessment Continues documentation) Is patient on ventilator? No Is Patient Ambulatory and/or Out of Bed No REE-([facility]-confined to bed) [phone] Calculation Used for Recommendations [facility] Additional Notes PRO: 1.0-1.3 g/kg (75-98 g/day ) Fluid: 1500 mL or per MD Nutrition Intervention Nutrition Support: [place] 1.8 at 50 mL/hr Flush 100 mL q 4 hr Kcal 2,160 Protein (gm) 97 Fat (gm) 115 Fluid (mL) 872 Goal #1 Continue to meet at least 75% harsh and pro needs via TF Anticipated Discharge Needs: Unable to determine at this time Follow-Up By: 02/04/19 Additional Comments F/u: TF tolerance
[2019-01-28] MEDS ORDERED: LANTUS SUB-Q SCH (22:00)
[2019-01-29] MEDS: HumaLOG SUB-Q SCH ×6 (01:51→21:17)
[2019-01-29 06:57] LABS: BUN/Creatinine Ratio 45; Blood Urea Nitrogen 54 mg/dL (9-20); Calcium 8.9 mg/dL (8.4-10.2); Hemolysis Index 4
--- NOTE | 2019-01-29 08:46 | Progress Note ---
Subjective Principal diagnosis: Ac. Encephalopathy; MYRTLE; Hypernatremia; Hyperkalemia; IDDM Interval history: Patient was seen today for follow-up on multiple renal related issues Encephalopathy but arousable Vitals labs intake output medications were reviewed Social history: Reviewed Allergies: Reviewed Family history: Reviewed Physical examination HEENT: Oral mucosa Dry no pallor or icterus patient has feeding tube Neck: Supple no JVD Chest: Clear to auscultation anteriorly CVS: Regular rate and rhythm S1 and S2 heard Abdomen: Soft nontender no suprapubic masses no organomegaly appreciable Extremity: Dry skin no edema reduced skin turgor Musculoskeletal: No joint effusion noted in knees and ankle Neurological: altered mental status Dermatology: No petechial rashes Psychiatry: No evidence of any agitation and aggression noted Assessment and plan Hypernatremia: Patient is in need for free water, will start the patient on 400 mL every 4 hours, patient needs strict intake and output monitoring, I did call and discuss with his nurse to monitor his intake and output Also advised her to do a bladder scan and call if abnormal Hypokalemia: Requires replacement and follow-up Blood sugar still remains labile Encephalopathy: Multifactorial being followed by primary team Metabolic acidosis currently improved Acute kidney injury currently in remission no evidence to suggest acute tubular necrosis patient mostly appear to be prerenal requires better control of blood sugar, to avoid osmotic diuresis We'll continue to follow and make recommendation from renal standpoint Objective - Vital Signs Vital signs: Vital Signs - 12hr 01/28/19 01/28/19 01/29/19 22:00 22:24 00:00 Temperature 98.2 F 99.7 F H Pulse Rate 112 H 110 H 109 H Pulse Rate [ 73 From Monitor] Respiratory 18 22 21 Rate Blood Pressure 127/78 119/78 O2 Sat by Pulse 98 96 97 Oximetry 01/29/19 01/29/19 04:29 08:41 Temperature 98.8 F 99.5 F Pulse Rate 111 H 111 H Pulse Rate [ From Monitor] Respiratory 22 20 Rate Blood Pressure 140/88 116/82 O2 Sat by Pulse 96 98 Oximetry - Lab 01/28/19 06:04 01/29/19 05:38 Most recent lab results Calcium 8.9 mg/dL (8.4-10.2) 01/29/19 05:38 Magnesium 2.30 mg/dL (1.7-2.3) 01/26/19 20:14 Medications & Allergies - Medications Allergies/Adverse Reactions: Allergies No Known Allergies Allergy (Unverified 02/07/16 02:00) Home Medications: Home Medications Medication Instructions Recorded Confirmed Last Taken Type Citalopram Hydrobromide [celeXA] 20 mg PO DAILY 02/07/16 01/25/19 02/06/16 Histo ry Acetaminophen [Tylenol] 650 mg PO Q4HR PRN 01/25/19 01/25/19 Unknown History AtorvaSTATin [Lipitor] 40 mg PO QHS 01/25/19 01/25/19 Unknown History Insulin Lispro [HumaLOG VIAL] See Protocol SUB-Q BID 01/25/19 01/25/19 Unknown History LORazepam [Ativan] 0.5 mg PO Q8H PRN 01/25/19 01/25/19 Unknown History Latanoprost [Xalatan] 1 drop OU HS 01/25/19 01/25/19 Unknown History Lisinopril [Zestril] 20 mg PO QDAY 01/25/19 01/25/19 Unknown History Magnesium Oxide [Mag-Ox] 400 mg PO QDAY 01/25/19 01/25/19 Unknown History Quetiapine Fumarate [SEROquel] 50 mg PO TID 01/25/19 01/25/19 Unknown History Thiamine [Vitamin B-1] 100 mg PO AC 01/25/19 01/25/19 Unknown History Timolol 0.5% [Timoptic] 1 drop OU BID 01/25/19 01/25/19 Unknown History hydroCHLOROthiazide [HCTZ] 25 mg PO QDAY 01/25/19 01/25/19 Unknown History Active Medications: Generic Name Dose Route Start Last Admin Trade Name Freq PRN Reason Stop Dose Admin Lipase/Protease/Amylase 1 each 01/26/19 11:47 Pancreaze 10,500 Unit FEEDTUBE PRN PRN For Clogged Feeding Tube Heparin Sodium (Porcine) 5,000 unit 01/25/19 22:00 01/28/19 21:19 Heparin SUB-Q 5,000 unit Q12HR NIKOLAS Administration Insulin Glargine 45 units 01/29/19 07:51 Lantus SUB-Q QHS NIKOLAS Insulin Human Lispro 0 unit 01/25/19 23:15 01/29/19 05:57 Humalog SUB-Q 4 unit Q4HR NIKOLAS Administration Protocol Simple Syrup 15 ml 01/26/19 11:47 Simple Syrup FEEDTUBE PRN PRN Hypoglycemia Simple Syrup 30 ml 01/26/19 11:47 Simple Syrup FEEDTUBE PRN PRN Hypoglycemia Sodium Bicarbonate 325 mg 01/26/19 11:47 Sodium Bicarbonate FEEDTUBE PRN PRN For Clogged Feeding Tube Sodium Chloride 10 ml 01/25/19 22:00 01/28/19 21:20 Sodium Chloride Flush Syringe 10 Ml IV 10 ml BID NIKOLAS Administration Sodium Chloride 10 ml 01/25/19 17:46 Sodium Chloride Flush Syringe 10 Ml IV PRN PRN LINE FLUSH
--- NOTE | 2019-01-29 09:43 | Progress Note ---
Assessment and Plan Acute metabolic encephalopathy MYRTLE (acute kidney injury) Acute hypernatremia Hyperkalemia Metabolic acidosis with increased anion gap and reduced excretion of inorganic acids Sepsis IDDM (insulin dependent diabetes mellitus) HTN (hypertension) HLD (hyperlipidemia) BPH (benign prostatic hyperplasia) - continue supplemental oxygen and wean to keep O2 sat's > 90% - continue bronchodilators with pulmonary hygiene per RT - continue aspiration precautions - enteral nutrition as tolerated - continue volume resuscitation re: prerenal numbers - azotemia per nephrology otherwise - free water for hypernatremia - continue glycemic control with SSI for target BG < 180mg/dl - s/p AB's course - continue other care per attending/other consultants ... re-evaluate in am & prn Subjective Date of service: 01/29/19 Principal diagnosis: Ac. Encephalopathy; MYRTLE; Hypernatremia; Hyperkalemia; IDDM Interval history: Patient is seen today for: Acute metabolic encephalopathy; MYRTLE (acute kidney injury); Acute hypernatremia; Hyperkalemia; Metabolic acidosis with increased anion gap and reduced excretion of inorganic acids; Severe Sepsis; IDDM (insulin dependent diabetes mellitus) Seen and examined at bedside; 24hour events reviewed; nursing and respiratory care staff consulted; no adverse overnight events reported to me; resting peacefully in bed; more alert today; tolerating tube feeds; remains on suplemental oxygen; no emesis or overt aspiration Objective Vital Signs - 12hr 01/28/19 01/28/19 01/29/19 22:00 22:24 00:00 Temperature 98.2 F 99.7 F H Pulse Rate 112 H 110 H 109 H Pulse Rate [ 73 From Monitor] Respiratory 18 22 21 Rate Blood Pressure 127/78 119/78 O2 Sat by Pulse 98 96 97 Oximetry 01/29/19 01/29/19 04:29 08:41 Temperature 98.8 F 99.5 F Pulse Rate 111 H 111 H Pulse Rate [ From Monitor] Respiratory 22 20 Rate Blood Pressure 140/88 116/82 O2 Sat by Pulse 96 98 Oximetry Constitutional: no acute distress, alert, other (middle aged chronically ill looking AAM) Eyes: non-icteric ENT: oropharynx moist Neck: supple, no lymphadenopathy, no JVD, other (no thyromegaly) Effort: mildly labored Ascultation: Bilateral: clear, diminished breath sounds Percussion: Bilateral: not dull Cardiovascular: regular rate and rhythm Gastrointestinal: normoactive bowel sounds, soft, non-tender, non-distended Integumentary: normal Extremities: no cyanosis, no edema, pulses normal, no ischemia or petechiae Neurologic: non-focal exam, pupils equal and round, other (hemiparesis) Psychiatric: other (Can Not asses due to his mental status.) CBC and BMP: 01/28/19 06:04 01/29/19 05:38 ABG, PT/INR, D-dimer: ABG POC ABG pH 7.479 (7.35-7.45) H 01/28/19 19:00 POC ABG pCO2 32.3 (35-45) L 01/28/19 19:00 POC ABG pO2 93 (80-105) 01/28/19 19:00 POC ABG HCO3 24.0 (22-26 mml/L) 01/28/19 19:00 POC ABG Total CO2 25 (23-27mmol/L) 01/28/19 19:00 POC ABG O2 Sat 98 01/28/19 19:00 Abnormal lab findings: Abnormal Labs 01/25/19 01/25/19 01/25/19 13:31 13:31 13:31 WBC 12.0 H RBC 6.00 H Hgb Hct 47.7 H MCV 80 L MCH 25 L MCHC 31 L RDW 18.1 H Lymph % (Auto) 10.4 L [place] % (Auto) 9.3 H Lymph # [place] # 1.1 H Baso # Seg Neutrophils % 78.5 H Seg Neutrophils # 9.5 H POC ABG pH POC ABG pCO2 Sodium 159 H Potassium 6.0 H Chloride 119.0 H Carbon Dioxide BUN 185 H Creatinine 5.7 H D Glucose 433 H POC Glucose Lactic Acid 2.60 H* Calcium Total Creatine Kinase 294 H Troponin T 0.080 H Albumin 2.6 L Triglycerides 172 H HDL Cholesterol 30 L 01/25/19 01/25/19 01/25/19 16:03 16:03 17:11 WBC RBC Hgb Hct MCV MCH MCHC RDW Lymph % (Auto) [place] % (Auto) Lymph # [place] # Baso # Seg Neutrophils % Seg Neutrophils # POC ABG pH POC ABG pCO2 Sodium Potassium Chloride Carbon Dioxide BUN Creatinine Glucose POC Glucose 346 H Lactic Acid 2.20 H* 2.30 H* Calcium Total Creatine Kinase Troponin T Albumin Triglycerides HDL Cholesterol 01/25/19 01/25/19 01/26/19 18:50 23:08 00:22 WBC RBC Hgb Hct MCV MCH MCHC RDW Lymph % (Auto) [place] % (Auto) Lymph # [place] # Baso # Seg Neutrophils % Seg Neutrophils # POC ABG pH POC ABG pCO2 Sodium 162 H* Potassium Chloride 125.2 H Carbon Dioxide BUN 180 H Creatinine 5.1 H Glucose 438 H POC Glucose 480 H Lactic Acid Calcium Total Creatine Kinase Troponin T 0.045 H D Albumin Triglycerides HDL Cholesterol 01/26/19 01/26/19 01/26/19 02:16 04:25 04:25 WBC RBC 5.21 H Hgb Hct MCV 80 L MCH 25 L MCHC 31 L RDW 18.0 H Lymph % (Auto) 8.2 L [place] % (Auto) 7.6 H Lymph # 0.8 L [place] # Baso # 0.2 H Seg Neutrophils % 81.6 H Seg Neutrophils # 8.3 H POC ABG pH POC ABG pCO2 Sodium 158 H Potassium Chloride 122.9 H Carbon Dioxide 21 L BUN 163 H Creatinine 3.9 H Glucose 465 H POC Glucose 462 H Lactic Acid Calcium 7.8 L Total Creatine Kinase Troponin T Albumin 2.3 L Triglycerides HDL Cholesterol 01/26/19 01/26/19 01/26/19 04:25 05:33 10:08 WBC RBC Hgb Hct MCV MCH MCHC RDW Lymph % (Auto) [place] % (Auto) Lymph # [place] # Baso # Seg Neutrophils % Seg Neutrophils # POC ABG pH POC ABG pCO2 Sodium 160 H Potassium Chloride 123.9 H Carbon Dioxide 19 L BUN 161 H Creatinine 3.9 H Glucose 468 H POC Glucose 309 H 316 H Lactic Acid Calcium 7.8 L Total Creatine Kinase Troponin T 0.031 H D Albumin Triglycerides HDL Cholesterol 01/26/19 01/26/19 01/27/19 14:30 16:11 03:18 WBC RBC Hgb Hct MCV MCH MCHC RDW Lymph % (Auto) [place] % (Auto) Lymph # [place] # Baso # Seg Neutrophils % Seg Neutrophils # POC ABG pH POC ABG pCO2 Sodium 160 H Potassium 3.4 L D Chloride 124.8 H Carbon Dioxide BUN 141 H Creatinine 2.9 H Glucose 126 H POC Glucose 167 H 184 H Lactic Acid Calcium 8.3 L Total Creatine Kinase Troponin T Albumin Triglycerides HDL Cholesterol 01/27/19 01/27/19 01/27/19 06:23 06:33 06:33 WBC RBC Hgb Hct MCV 79 L MCH 25 L MCHC 31 L RDW 17.7 H Lymph % (Auto) [place] % (Auto) 8.1 H Lymph # [place] # Baso # Seg Neutrophils % 71.1 H Seg Neutrophils # POC ABG pH POC ABG pCO2 Sodium 157 H Potassium Chloride 121.4 H Carbon Dioxide BUN 117 H Creatinine 1.9 H Glucose 200 H POC Glucose 219 H Lactic Acid Calcium 8.3 L Total Creatine Kinase Troponin T Albumin Triglycerides HDL Cholesterol 01/27/19 01/27/19 01/27/19 11:13 12:46 16:10 WBC RBC Hgb Hct MCV MCH MCHC RDW Lymph % (Auto) [place] % (Auto) Lymph # [place] # Baso # Seg Neutrophils % Seg Neutrophils # POC ABG pH POC ABG pCO2 Sodium Potassium Chloride Carbon Dioxide BUN Creatinine Glucose POC Glucose 200 H 205 H 230 H Lactic Acid Calcium Total Creatine Kinase Troponin T Albumin Triglycerides HDL Cholesterol 01/28/19 01/28/19 01/28/19 00:09 06:04 06:04 WBC RBC Hgb 11.5 L Hct MCV 77 L MCH 25 L MCHC RDW 17.4 H Lymph % (Auto) [place] % (Auto) 8.7 H Lymph # [place] # Baso # Seg Neutrophils % Seg Neutrophils # POC ABG pH POC ABG pCO2 Sodium 159 H Potassium 3.3 L Chloride 123.1 H Carbon Dioxide BUN 75 H Creatinine Glucose 310 H POC Glucose 177 H Lactic Acid Calcium Total Creatine Kinase Troponin T Albumin Triglycerides HDL Cholesterol 01/28/19 01/28/19 01/28/19 06:42 12:28 15:10 WBC RBC Hgb Hct MCV MCH MCHC RDW Lymph % (Auto) [place] % (Auto) Lymph # [place] # Baso # Seg Neutrophils % Seg Neutrophils # POC ABG pH POC ABG pCO2 Sodium Potassium Chloride Carbon Dioxide BUN Creatinine Glucose POC Glucose 384 H 280 H 282 H Lactic Acid Calcium Total Creatine Kinase Troponin T Albumin Triglycerides HDL Cholesterol 01/28/19 01/28/19 01/28/19 18:54 19:00 21:44 WBC RBC Hgb Hct MCV MCH MCHC RDW Lymph % (Auto) [place] % (Auto) Lymph # [place] # Baso # Seg Neutrophils % Seg Neutrophils # POC ABG pH 7.479 H POC ABG pCO2 32.3 L Sodium Potassium Chloride Carbon Dioxide BUN Creatinine Glucose POC Glucose 189 H 179 H Lactic Acid Calcium Total Creatine Kinase Troponin T Albumin Triglycerides HDL Cholesterol 01/29/19 01/29/19 01/29/19 01:48 04:37 05:38 WBC RBC Hgb Hct MCV MCH MCHC RDW Lymph % (Auto) [place] % (Auto) Lymph # [place] # Baso # Seg Neutrophils % Seg Neutrophils # POC ABG pH POC ABG pCO2 Sodium 164 H* Potassium 3.5 L Chloride 128.9 H Carbon Dioxide BUN 54 H Creatinine Glucose 271 H POC Glucose 238 H 248 H Lactic Acid Calcium Total Creatine Kinase Troponin T Albumin Triglycerides HDL Cholesterol Allied health notes reviewed: nursing
[2019-01-29] MEDS: SODIUM CHLORIDE FLUSH SYRINGE 10 ML IV SCH ×2 (10:35→21:18)
[2019-01-29] MEDS: HEPARIN SUB-Q SCH ×2 (10:35→21:16)
--- NOTE | 2019-01-29 11:39 | Progress Note ---
Assessment and Plan - Patient Problems (1) MYRTLE (acute kidney injury) Current Visit: Yes Status: Acute Plan to address problem: Patient renal function continues to respond to IV volume replacement. Her free water. Creatinine has come down from 5.7 to currently 1.2. Unfortunately this is not aligned itself with the resolution of his encephalopathy. He indicates something else. I think may benefit from MRI of brain further neurologic workup. (2) Acute hypernatremia Current Visit: Yes Status: Acute Plan to address problem: A sure receiving free water 300 mL every 4 hours. Had an acute episode of hyponatremia. Not sure of source. We'll continue free water and follow up a.m. (3) Acute metabolic encephalopathy Current Visit: Yes Status: Acute Plan to address problem: Metabolic encephalopathy most likely multifactorial. 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 Maybe the dehydration has caused old CVA symptoms to recur. The note states patient seems to be improving however at this time appears heart because this is my first time seeing him. Patient still remains significantly lethargic. (4) Altered mental status Current Visit: Yes Status: Acute Plan to address problem: No clear etiology suspect underlying CVA. This possibly may not be new. (5) HLD (hyperlipidemia) Current Visit: Yes Status: Chronic Qualifiers: Hyperlipidemia type: mixed hyperlipidemia Qualified Code(s): E78.2 - Mixed hyperlipidemia Plan to address problem: Statin follow LDL. Goal LDL less than 70. (6) HTN (hypertension) Current Visit: Yes Status: Chronic Qualifiers: Hypertension type: essential hypertension Qualified Code(s): I10 - Essential (primary) hypertension Plan to address problem: Patient has fair control his blood pressure today. Required any blood pressure medications at this time. (7) IDDM (insulin dependent diabetes mellitus) Current Visit: Yes Status: Chronic Plan to address problem: Remains suboptimal. We'll increase Lantus. History Interval history: Patient remains lethargic. Not much has changed since yesterday. Will open eyes somewhat. Very difficult to response remains encephalopathic. 2. restraints Hospitalist Physical - Constitutional Vitals: Temp Pulse Resp BP Pulse Ox 99.5 F 110 H 20 116/82 98 01/29/19 08:41 01/29/19 10:00 01/29/19 08:41 01/29/19 08:41 01/29/19 08:41 General appearance: Present: no acute distress, well-nourished - EENT Eyes: Present: PERRL ENT: hearing intact, clear oral mucosa, dentition normal, poor dentition, thrush, no oropharyngeal erythema - Neck Neck: Present: supple, normal ROM - Respiratory Respiratory: bilateral: diminished, rales - Cardiovascular Rhythm: regular Heart Sounds: Absent: S1 & S2, systolic murmur - Extremities Extremities: pulses intact, No edema, normal temperature, abnormal - Abdominal General gastrointestinal: soft, non-tender, non-distended, normal bowel sounds - Integumentary Integumentary: Present: clear, warm, dry - Psychiatric Psychiatric: other (encephalopathic focal deficits.) Results - Labs CBC & Chem 7: 01/28/19 06:04 01/29/19 05:38 Labs: Laboratory Last Values WBC 7.0 K/mm3 (4.5-11.0) 01/28/19 06:04 RBC 4.63 M/mm3 (3.65-5.03) 01/28/19 06:04 Hgb 11.5 gm/dl (11.8-15.2) L 01/28/19 06:04 Hct 35.9 % (35.5-45.6) 01/28/19 06:04 MCV 77 fl (84-94) L 01/28/19 06:04 MCH 25 pg (28-32) L 01/28/19 06:04 MCHC 32 % (32-34) 01/28/19 06:04 RDW 17.4 % (13.2-15.2) H 01/28/19 06:04 Plt Count 169 K/mm3 (140-440) 01/28/19 06:04 Lymph % (Auto) 19.1 % (13.4-35.0) 01/28/19 06:04 [place] % (Auto) 8.7 % (0.0-7.3) H 01/28/19 06:04 Eos % (Auto) 3.1 % (0.0-4.3) 01/28/19 06:04 Baso % (Auto) 0.3 % (0.0-1.8) 01/28/19 06:04 Lymph # 1.3 K/mm3 (1.2-5.4) 01/28/19 06:04 [place] # 0.6 K/mm3 (0.0-0.8) 01/28/19 06:04 Eos # 0.2 K/mm3 (0.0-0.4) 01/28/19 06:04 Baso # 0.0 K/mm3 (0.0-0.1) 01/28/19 06:04 Seg Neutrophils % 68.8 % (40.0-70.0) 01/28/19 06:04 Seg Neutrophils # 4.8 K/mm3 (1.8-7.7) 01/28/19 06:04 POC ABG pH 7.479 (7.35-7.45) H 01/28/19 19:00 POC ABG pCO2 32.3 (35-45) L 01/28/19 19:00 POC ABG pO2 93 (80-105) 01/28/19 19:00 POC ABG HCO3 24.0 (22-26 mml/L) 01/28/19 19:00 POC ABG Total CO2 25 (23-27mmol/L) 01/28/19 19:00 POC ABG O2 Sat 98 01/28/19 19:00 POC ABG Base Excess 0 ((-2) - (+3)mmol/L) 01/28/19 19:00 FiO2 21 % 01/28/19 19:00 Sodium 164 mmol/L (137-145) H* 01/29/19 05:38 Potassium 3.5 mmol/L (3.6-5.0) L 01/29/19 05:38 Chloride 128.9 mmol/L (98-107) H 01/29/19 05:38 Carbon Dioxide 25 mmol/L (22-30) 01/29/19 05:38 Anion Gap 13 mmol/L 01/29/19 05:38 BUN 54 mg/dL (9-20) H 01/29/19 05:38 Creatinine 1.2 mg/dL (0.8-1.5) 01/29/19 05:38 Estimated GFR > 60 ml/min 01/29/19 05:38 BUN/Creatinine Ratio 45 % 01/29/19 05:38 Glucose 271 mg/dL (75-100) H 01/29/19 05:38 POC Glucose 288 (70-105) H 01/29/19 10:26 Lactic Acid 1.40 mmol/L (0.7-2.0) 01/25/19 18:50 Calcium 8.9 mg/dL (8.4-10.2) 01/29/19 05:38 Magnesium 2.30 mg/dL (1.7-2.3) 01/26/19 20:14 Total Bilirubin 0.20 mg/dL (0.1-1.2) 01/26/19 04:25 AST 12 units/L (5-40) 01/26/19 04:25 ALT 17 units/L (7-56) 01/26/19 04:25 Alkaline Phosphatase 84 units/L (35-129) 01/26/19 04:25 Ammonia 51.0 umol/L (25-60) 01/25/19 13:31 Total Creatine Kinase 294 units/L (55-170) H 01/25/19 13:31 CK-MB (CK-2) 2.2 ng/mL (0.0-4.0) 01/25/19 13:31 CK-MB (CK-2) Rel Index 0.7 (0-4) 01/25/19 13:31 Troponin T 0.031 ng/mL (0.00-0.029) H D 01/26/19 04:25 Total Protein 6.4 g/dL (6.3-8.2) 01/26/19 04:25 Albumin 2.3 g/dL (3.9-5) L 01/26/19 04:25 Albumin/Globulin Ratio 0.6 % 01/26/19 04:25 Triglycerides 172 mg/dL (2-149) H 01/25/19 13:31 Cholesterol 148 mg/dL (50-199) 01/25/19 13:31 LDL Cholesterol Direct 82 mg/dL (50-130) 01/25/19 13:31 HDL Cholesterol 30 mg/dL (40-59) L 01/25/19 13:31 Cholesterol/HDL Ratio 4.93 % 01/25/19 13:31 TSH 4.020 mlU/mL (0.270-4.200) 01/25/19 13:31 Free T4 0.89 ng/dL (0.76-1.46) 01/25/19 13:31 Urine Color Yellow (Yellow) 01/25/19 15:00 Urine Turbidity Slightly-cloudy (Clear) 01/25/19 15:00 Urine pH 5.0 (5.0-7.0) 01/25/19 15:00 Ur Specific [employer] 1.018 (1.003-1.030) 01/25/19 15:00 Urine Protein <15 mg/dl mg/dL (Negative) 01/25/19 15:00 Urine Glucose (UA) 50 mg/dL (Negative) 01/25/19 15:00 Urine Ketones Neg mg/dL (Negative) 01/25/19 15:00 Urine Blood Neg (Negative) 01/25/19 15:00 Urine Nitrite Neg (Negative) 01/25/19 15:00 Urine Bilirubin Neg (Negative) 01/25/19 15:00 Urine Urobilinogen 4.0 mg/dL (<2.0) 01/25/19 15:00 Ur Leukocyte Esterase Neg (Negative) 01/25/19 15:00 Urine WBC (Auto) 3.0 /HPF (0.0-6.0) 01/25/19 15:00 Urine RBC (Auto) 1.0 /HPF (0.0-6.0) 01/25/19 15:00 U Epithel Cells (Auto) < 1.0 /HPF (0-13.0) 01/25/19 15:00 Hyaline Casts 9 /LPF 01/25/19 15:00 Active Medications - Current Medications Current Medications: Generic Name Dose Route Start Last Admin Trade Name Freq PRN Reason Stop Dose Admin Lipase/Protease/Amylase 1 each 01/26/19 11:47 Pancreaze 10,500 Unit FEEDTUBE PRN PRN For Clogged Feeding Tube Heparin Sodium (Porcine) 5,000 unit 01/25/19 22:00 01/29/19 10:35 Heparin SUB-Q 5,000 unit Q12HR NIKOLAS Administration Insulin Glargine 45 units 01/29/19 22:00 Lantus SUB-Q QHS [facility] Insulin Human Lispro 0 unit 01/25/19 23:15 01/29/19 10:34 Humalog SUB-Q 6 unit Q4HR NIKOLAS Administration Protocol Simple Syrup 15 ml 01/26/19 11:47 Simple Syrup FEEDTUBE PRN PRN Hypoglycemia Simple Syrup 30 ml 01/26/19 11:47 Simple Syrup FEEDTUBE PRN PRN Hypoglycemia Sodium Bicarbonate 325 mg 01/26/19 11:47 Sodium Bicarbonate FEEDTUBE PRN PRN For Clogged Feeding Tube Sodium Chloride 10 ml 01/25/19 22:00 01/29/19 10:35 Sodium Chloride Flush Syringe 10 Ml IV 10 ml BID NIKOLAS Administration Sodium Chloride 10 ml 01/25/19 17:46 Sodium Chloride Flush Syringe 10 Ml IV PRN PRN LINE FLUSH Nutrition/Malnutrition Assess - Dietary Evaluation Nutrition/Malnutrition Findings: Nutrition Notes Start: 01/26/19 08:45 Freq: Status: Active Protocol: Document 01/28/19 10:22 TW (Rec: 01/28/19 10:25 TW [id number]) Co-Sign 01/28/19 10:22 LP Nutrition Notes Initial or Follow up Reassessment Current Diagnosis Hypertension Other Pertinent Diagnosis Acute renail failure, Hyperkalemia, AMS, Dehydration Current Diet Nepo 1.8 at 50 ml/hr Labs/Tests Na 159 BUN 75 K: 3.3 BG 310 Pertinent Medications Reviewed Height 5 ft 6 in Weight 74.9 kg [place] Body Weight (kg) 64.54 BMI 26.6 Subjective/Other Information Follow up for TF tolerance. Per RN, pt is tolerating TF well. Observed Nepro 1.8 running at goal rate (50 ml/hr ). Percent of energy/protein needs met: 100%/100% Burn Absent Trauma Absent #1 Nutrition Diagnosis Inadequate oral intake Diagnosis Progress(for reassessment Continues documentation) Is patient on ventilator? No Is Patient Ambulatory and/or Out of Bed No REE-([facility]-confined to bed) [phone] Calculation Used for Recommendations [facility] Additional Notes PRO: 1.0-1.3 g/kg (75-98 g/day ) Fluid: 1500 mL or per MD Nutrition Intervention Nutrition Support: Nepro 1.8 at 50 mL/hr Flush 100 mL q 4 hr Kcal 2,160 Protein (gm) 97 Fat (gm) 115 Fluid (mL) 872 Goal #1 Continue to meet at least 75% harsh and pro needs via TF Anticipated Discharge Needs: Unable to determine at this time Follow-Up By: 02/04/19 Additional Comments F/u: TF tolerance
[2019-01-29] MEDS: LANTUS SUB-Q SCH (21:16)
[2019-01-30] MEDS: HumaLOG SUB-Q SCH ×6 (01:50→21:30)
--- NOTE | 2019-01-30 07:31 | Progress Note ---
Assessment and Plan Acute metabolic encephalopathy MYRTLE (acute kidney injury) Acute hypernatremia Hyperkalemia Metabolic acidosis with increased anion gap and reduced excretion of inorganic acids Sepsis IDDM (insulin dependent diabetes mellitus) HTN (hypertension) HLD (hyperlipidemia) BPH (benign prostatic hyperplasia) - supplemental oxygen and wean to keep O2 sat's > 90% - bronchodilators with pulmonary hygiene per RT - aspiration precautions - enteral nutrition as tolerated( small bowel feeding tube) - azotemia per nephrology - free water for hypernatremia - continue glycemic control with SSI for target BG < 180mg/dl - Antibiotics, complete course -PT/OT Subjective Date of service: 01/30/19 Principal diagnosis: MYRTLE/Hypernatremia Interval history: Patient is seen today for: Acute metabolic encephalopathy; MYRTLE (acute kidney injury); Acute hypernatremia; Hyperkalemia; Metabolic acidosis with increased anion gap and reduced excretion of inorganic acids; Severe Sepsis; IDDM (insulin dependent diabetes mellitus) Seen and examined at bedside; 24hour events reviewed; nursing and respiratory care staff consulted; no adverse overnight events reported to me; resting peacefully in bed; more alert today; tolerating tube feeds; remains on supplemental oxygen; no emesis or overt aspiration He appears to be more awake everyday, responding to questions with monosyllabic answers today. Objective Vital Signs - 12hr 01/29/19 01/29/19 01/29/19 19:45 22:00 23:42 Temperature 98.4 F 32.1 F L Pulse Rate 100 H Respiratory 18 18 Rate Blood Pressure 132/82 119/81 Blood Pressure [Left] O2 Sat by Pulse 98 Oximetry 01/30/19 04:00 Temperature 98.4 F Pulse Rate 106 H Respiratory 18 Rate Blood Pressure Blood Pressure 139/88 [Left] O2 Sat by Pulse 97 Oximetry Constitutional: no acute distress, alert, other (middle aged chronically ill looking AAM) Eyes: non-icteric ENT: oropharynx moist Neck: supple, no lymphadenopathy, no JVD, other (no thyromegaly) Effort: mildly labored Ascultation: Bilateral: clear, diminished breath sounds Percussion: Bilateral: not dull Cardiovascular: regular rate and rhythm Gastrointestinal: normoactive bowel sounds, soft, non-tender, non-distended Integumentary: normal Extremities: no cyanosis, no edema, pulses normal, no ischemia or petechiae Neurologic: non-focal exam, pupils equal and round, other (hemiparesis) Psychiatric: other (Can Not asses due to his mental status.) CBC and BMP: 01/31/19 04:42 01/31/19 04:42 ABG, PT/INR, D-dimer: ABG POC ABG pH 7.479 (7.35-7.45) H 01/28/19 19:00 POC ABG pCO2 32.3 (35-45) L 01/28/19 19:00 POC ABG pO2 93 (80-105) 01/28/19 19:00 POC ABG HCO3 24.0 (22-26 mml/L) 01/28/19 19:00 POC ABG Total CO2 25 (23-27mmol/L) 01/28/19 19:00 POC ABG O2 Sat 98 01/28/19 19:00 Abnormal lab findings: Abnormal Labs 01/25/19 01/25/19 01/25/19 13:31 13:31 13:31 WBC 12.0 H RBC 6.00 H Hgb Hct 47.7 H MCV 80 L MCH 25 L MCHC 31 L RDW 18.1 H Lymph % (Auto) 10.4 L [place] % (Auto) 9.3 H Lymph # [place] # 1.1 H Baso # Seg Neutrophils % 78.5 H Seg Neutrophils # 9.5 H POC ABG pH POC ABG pCO2 Sodium 159 H Potassium 6.0 H Chloride 119.0 H Carbon Dioxide BUN 185 H Creatinine 5.7 H D Glucose 433 H POC Glucose Lactic Acid 2.60 H* Calcium Total Creatine Kinase 294 H Troponin T 0.080 H Albumin 2.6 L Triglycerides 172 H HDL Cholesterol 30 L 01/25/19 01/25/19 01/25/19 16:03 16:03 17:11 WBC RBC Hgb Hct MCV MCH MCHC RDW Lymph % (Auto) [place] % (Auto) Lymph # [place] # Baso # Seg Neutrophils % Seg Neutrophils # POC ABG pH POC ABG pCO2 Sodium Potassium Chloride Carbon Dioxide BUN Creatinine Glucose POC Glucose 346 H Lactic Acid 2.20 H* 2.30 H* Calcium Total Creatine Kinase Troponin T Albumin Triglycerides HDL Cholesterol 01/25/19 01/25/19 01/26/19 18:50 23:08 00:22 WBC RBC Hgb Hct MCV MCH MCHC RDW Lymph % (Auto) [place] % (Auto) Lymph # [place] # Baso # Seg Neutrophils % Seg Neutrophils # POC ABG pH POC ABG pCO2 Sodium 162 H* Potassium Chloride 125.2 H Carbon Dioxide BUN 180 H Creatinine 5.1 H Glucose 438 H POC Glucose 480 H Lactic Acid Calcium Total Creatine Kinase Troponin T 0.045 H D Albumin Triglycerides HDL Cholesterol 01/26/19 01/26/19 01/26/19 02:16 04:25 04:25 WBC RBC 5.21 H Hgb Hct MCV 80 L MCH 25 L MCHC 31 L RDW 18.0 H Lymph % (Auto) 8.2 L [place] % (Auto) 7.6 H Lymph # 0.8 L [place] # Baso # 0.2 H Seg Neutrophils % 81.6 H Seg Neutrophils # 8.3 H POC ABG pH POC ABG pCO2 Sodium 158 H Potassium Chloride 122.9 H Carbon Dioxide 21 L BUN 163 H Creatinine 3.9 H Glucose 465 H POC Glucose 462 H Lactic Acid Calcium 7.8 L Total Creatine Kinase Troponin T Albumin 2.3 L Triglycerides HDL Cholesterol 01/26/19 01/26/19 01/26/19 04:25 05:33 10:08 WBC RBC Hgb Hct MCV MCH MCHC RDW Lymph % (Auto) [place] % (Auto) Lymph # [place] # Baso # Seg Neutrophils % Seg Neutrophils # POC ABG pH POC ABG pCO2 Sodium 160 H Potassium Chloride 123.9 H Carbon Dioxide 19 L BUN 161 H Creatinine 3.9 H Glucose 468 H POC Glucose 309 H 316 H Lactic Acid Calcium 7.8 L Total Creatine Kinase Troponin T 0.031 H D Albumin Triglycerides HDL Cholesterol 01/26/19 01/26/19 01/27/19 14:30 16:11 03:18 WBC RBC Hgb Hct MCV MCH MCHC RDW Lymph % (Auto) [place] % (Auto) Lymph # [place] # Baso # Seg Neutrophils % Seg Neutrophils # POC ABG pH POC ABG pCO2 Sodium 160 H Potassium 3.4 L D Chloride 124.8 H Carbon Dioxide BUN 141 H Creatinine 2.9 H Glucose 126 H POC Glucose 167 H 184 H Lactic Acid Calcium 8.3 L Total Creatine Kinase Troponin T Albumin Triglycerides HDL Cholesterol 01/27/19 01/27/19 01/27/19 06:23 06:33 06:33 WBC RBC Hgb Hct MCV 79 L MCH 25 L MCHC 31 L RDW 17.7 H Lymph % (Auto) [place] % (Auto) 8.1 H Lymph # [place] # Baso # Seg Neutrophils % 71.1 H Seg Neutrophils # POC ABG pH POC ABG pCO2 Sodium 157 H Potassium Chloride 121.4 H Carbon Dioxide BUN 117 H Creatinine 1.9 H Glucose 200 H POC Glucose 219 H Lactic Acid Calcium 8.3 L Total Creatine Kinase Troponin T Albumin Triglycerides HDL Cholesterol 01/27/19 01/27/19 01/27/19 11:13 12:46 16:10 WBC RBC Hgb Hct MCV MCH MCHC RDW Lymph % (Auto) [place] % (Auto) Lymph # [place] # Baso # Seg Neutrophils % Seg Neutrophils # POC ABG pH POC ABG pCO2 Sodium Potassium Chloride Carbon Dioxide BUN Creatinine Glucose POC Glucose 200 H 205 H 230 H Lactic Acid Calcium Total Creatine Kinase Troponin T Albumin Triglycerides HDL Cholesterol 01/28/19 01/28/19 01/28/19 00:09 06:04 06:04 WBC RBC Hgb 11.5 L Hct MCV 77 L MCH 25 L MCHC RDW 17.4 H Lymph % (Auto) [place] % (Auto) 8.7 H Lymph # [place] # Baso # Seg Neutrophils % Seg Neutrophils # POC ABG pH POC ABG pCO2 Sodium 159 H Potassium 3.3 L Chloride 123.1 H Carbon Dioxide BUN 75 H Creatinine Glucose 310 H POC Glucose 177 H Lactic Acid Calcium Total Creatine Kinase Troponin T Albumin Triglycerides HDL Cholesterol 01/28/19 01/28/19 01/28/19 06:42 12:28 15:10 WBC RBC Hgb Hct MCV MCH MCHC RDW Lymph % (Auto) [place] % (Auto) Lymph # [place] # Baso # Seg Neutrophils % Seg Neutrophils # POC ABG pH POC ABG pCO2 Sodium Potassium Chloride Carbon Dioxide BUN Creatinine Glucose POC Glucose 384 H 280 H 282 H Lactic Acid Calcium Total Creatine Kinase Troponin T Albumin Triglycerides HDL Cholesterol 01/28/19 01/28/19 01/28/19 18:54 19:00 21:44 WBC RBC Hgb Hct MCV MCH MCHC RDW Lymph % (Auto) [place] % (Auto) Lymph # [place] # Baso # Seg Neutrophils % Seg Neutrophils # POC ABG pH 7.479 H POC ABG pCO2 32.3 L Sodium Potassium Chloride Carbon Dioxide BUN Creatinine Glucose POC Glucose 189 H 179 H Lactic Acid Calcium Total Creatine Kinase Troponin T Albumin Triglycerides HDL Cholesterol 01/29/19 01/29/19 01/29/19 01:48 04:37 05:38 WBC RBC Hgb Hct MCV MCH MCHC RDW Lymph % (Auto) [place] % (Auto) Lymph # [place] # Baso # Seg Neutrophils % Seg Neutrophils # POC ABG pH POC ABG pCO2 Sodium 164 H* Potassium 3.5 L Chloride 128.9 H Carbon Dioxide BUN 54 H Creatinine Glucose 271 H POC Glucose 238 H 248 H Lactic Acid Calcium Total Creatine Kinase Troponin T Albumin Triglycerides HDL Cholesterol 01/29/19 01/29/19 01/29/19 10:26 13:19 17:57 WBC RBC Hgb Hct MCV MCH MCHC RDW Lymph % (Auto) [place] % (Auto) Lymph # [place] # Baso # Seg Neutrophils % Seg Neutrophils # POC ABG pH POC ABG pCO2 Sodium Potassium Chloride Carbon Dioxide BUN Creatinine Glucose POC Glucose 288 H 301 H 242 H Lactic Acid Calcium Total Creatine Kinase Troponin T Albumin Triglycerides HDL Cholesterol 01/29/19 01/30/19 01/30/19 20:25 01:51 05:23 WBC RBC Hgb Hct MCV MCH MCHC RDW Lymph % (Auto) [place] % (Auto) Lymph # [place] # Baso # Seg Neutrophils % Seg Neutrophils # POC ABG pH POC ABG pCO2 Sodium Potassium Chloride Carbon Dioxide BUN Creatinine Glucose POC Glucose 223 H 229 H 218 H Lactic Acid Calcium Total Creatine Kinase Troponin T Albumin Triglycerides HDL Cholesterol Allied health notes reviewed: nursing
[2019-01-30 08:01] LABS: BUN/Creatinine Ratio 44; Blood Urea Nitrogen 40 mg/dL (9-20); Calcium 8.3 mg/dL (8.4-10.2); Hemolysis Index 1
[2019-01-30] MEDS: HEPARIN SUB-Q SCH ×2 (09:02→21:29)
[2019-01-30] MEDS: SODIUM CHLORIDE FLUSH SYRINGE 10 ML IV SCH ×2 (09:02→21:31)
--- NOTE | 2019-01-30 11:43 | Progress Note ---
Assessment and Plan Assessment and plan: Metabolic encephalopathy. Patient remains confused requiring restraints. Continue to treat underlying causes of hypernatremia. Consider nephrology consultation. Hypernatremia. Continue free water and add IV fluids of 1/2 NS x 1 L. Acute renal failure/MYRTLE. Etiology likely secondary to vasomotor ne phropathy/dehydration. Hyperlipidemia. Continue statins. Hypertension. Continue antihypertensive medications. Diabetes mellitus type 2. Continue Accu-Cheks, sliding scale regular insulin and Lantus History Interval history: No new issues overnight. Hospitalist Physical - Constitutional Vitals: Temp Pulse Resp BP Pulse Ox 97.7 F 105 H 20 143/86 100 01/30/19 08:31 01/30/19 08:51 01/30/19 08:29 01/30/19 08:29 01/30/19 08:29 General appearance: Present: no acute distress, well-nourished - EENT Eyes: Present: PERRL, EOM intact ENT: hearing intact, clear oral mucosa, dentition normal - Neck Neck: Present: supple, normal ROM - Respiratory Respiratory effort: normal Respiratory: bilateral: CTA - Cardiovascular Rhythm: regular Heart Sounds: Present: S1 & S2. Absent: gallop, rub - Extremities Extremities: no ischemia, No edema, Full ROM - Abdominal General gastrointestinal: soft, non-tender, non-distended, normal bowel sounds - Integumentary Integumentary: Present: clear, warm, dry - Neurologic Neurologic: CNII-XII intact, moves all extremities Results - Labs CBC & Chem 7: 01/28/19 06:04 01/30/19 07:16 Labs: Laboratory Last Values WBC 7.0 K/mm3 (4.5-11.0) 01/28/19 06:04 RBC 4.63 M/mm3 (3.65-5.03) 01/28/19 06:04 Hgb 11.5 gm/dl (11.8-15.2) L 01/28/19 06:04 Hct 35.9 % (35.5-45.6) 01/28/19 06:04 MCV 77 fl (84-94) L 01/28/19 06:04 MCH 25 pg (28-32) L 01/28/19 06:04 MCHC 32 % (32-34) 01/28/19 06:04 RDW 17.4 % (13.2-15.2) H 01/28/19 06:04 Plt Count 169 K/mm3 (140-440) 01/28/19 06:04 Lymph % (Auto) 19.1 % (13.4-35.0) 01/28/19 06:04 [place] % (Auto) 8.7 % (0.0-7.3) H 01/28/19 06:04 Eos % (Auto) 3.1 % (0.0-4.3) 01/28/19 06:04 Baso % (Auto) 0.3 % (0.0-1.8) 01/28/19 06:04 Lymph # 1.3 K/mm3 (1.2-5.4) 01/28/19 06:04 [place] # 0.6 K/mm3 (0.0-0.8) 01/28/19 06:04 Eos # 0.2 K/mm3 (0.0-0.4) 01/28/19 06:04 Baso # 0.0 K/mm3 (0.0-0.1) 01/28/19 06:04 Seg Neutrophils % 68.8 % (40.0-70.0) 01/28/19 06:04 Seg Neutrophils # 4.8 K/mm3 (1.8-7.7) 01/28/19 06:04 POC ABG pH 7.479 (7.35-7.45) H 01/28/19 19:00 POC ABG pCO2 32.3 (35-45) L 01/28/19 19:00 POC ABG pO2 93 (80-105) 01/28/19 19:00 POC ABG HCO3 24.0 (22-26 mml/L) 01/28/19 19:00 POC ABG Total CO2 25 (23-27mmol/L) 01/28/19 19:00 POC ABG O2 Sat 98 01/28/19 19:00 POC ABG Base Excess 0 ((-2) - (+3)mmol/L) 01/28/19 19:00 FiO2 21 % 01/28/19 19:00 Sodium 155 mmol/L (137-145) H D 01/30/19 07:16 Potassium 3.2 mmol/L (3.6-5.0) L 01/30/19 07:16 Chloride 118.4 mmol/L (98-107) H 01/30/19 07:16 Carbon Dioxide 26 mmol/L (22-30) 01/30/19 07:16 Anion Gap 14 mmol/L 01/30/19 07:16 BUN 40 mg/dL (9-20) H 01/30/19 07:16 Creatinine 0.9 mg/dL (0.8-1.5) 01/30/19 07:16 Estimated GFR > 60 ml/min 01/30/19 07:16 BUN/Creatinine Ratio 44 % 01/30/19 07:16 Glucose 246 mg/dL (75-100) H 01/30/19 07:16 POC Glucose 257 (70-105) H 01/30/19 10:26 Lactic Acid 1.40 mmol/L (0.7-2.0) 01/25/19 18:50 Calcium 8.3 mg/dL (8.4-10.2) L 01/30/19 07:16 Magnesium 2.30 mg/dL (1.7-2.3) 01/26/19 20:14 Total Bilirubin 0.20 mg/dL (0.1-1.2) 01/26/19 04:25 AST 12 units/L (5-40) 01/26/19 04:25 ALT 17 units/L (7-56) 01/26/19 04:25 Alkaline Phosphatase 84 units/L (35-129) 01/26/19 04:25 Ammonia 51.0 umol/L (25-60) 01/25/19 13:31 Total Creatine Kinase 294 units/L (55-170) H 01/25/19 13:31 CK-MB (CK-2) 2.2 ng/mL (0.0-4.0) 01/25/19 13:31 CK-MB (CK-2) Rel Index 0.7 (0-4) 01/25/19 13:31 Troponin T 0.031 ng/mL (0.00-0.029) H D 01/26/19 04:25 Total Protein 6.4 g/dL (6.3-8.2) 01/26/19 04:25 Albumin 2.3 g/dL (3.9-5) L 01/26/19 04:25 Albumin/Globulin Ratio 0.6 % 01/26/19 04:25 Triglycerides 172 mg/dL (2-149) H 01/25/19 13:31 Cholesterol 148 mg/dL (50-199) 01/25/19 13:31 LDL Cholesterol Direct 82 mg/dL (50-130) 01/25/19 13:31 HDL Cholesterol 30 mg/dL (40-59) L 01/25/19 13:31 Cholesterol/HDL Ratio 4.93 % 01/25/19 13:31 TSH 4.020 mlU/mL (0.270-4.200) 01/25/19 13:31 Free T4 0.89 ng/dL (0.76-1.46) 01/25/19 13:31 Urine Color Yellow (Yellow) 01/25/19 15:00 Urine Turbidity Slightly-cloudy (Clear) 01/25/19 15:00 Urine pH 5.0 (5.0-7.0) 01/25/19 15:00 Ur Specific [place] 1.018 (1.003-1.030) 01/25/19 15:00 Urine Protein <15 mg/dl mg/dL (Negative) 01/25/19 15:00 Urine Glucose (UA) 50 mg/dL (Negative) 01/25/19 15:00 Urine Ketones Neg mg/dL (Negative) 01/25/19 15:00 Urine Blood Neg (Negative) 01/25/19 15:00 Urine Nitrite Neg (Negative) 01/25/19 15:00 Urine Bilirubin Neg (Negative) 01/25/19 15:00 Urine Urobilinogen 4.0 mg/dL (<2.0) 01/25/19 15:00 Ur Leukocyte Esterase Neg (Negative) 01/25/19 15:00 Urine WBC (Auto) 3.0 /HPF (0.0-6.0) 01/25/19 15:00 Urine RBC (Auto) 1.0 /HPF (0.0-6.0) 01/25/19 15:00 U Epithel Cells (Auto) < 1.0 /HPF (0-13.0) 01/25/19 15:00 Hyaline Casts 9 /LPF 01/25/19 15:00 Active Medications - Current Medications Current Medications: Generic Name Dose Route Start Last Admin Trade Name Freq PRN Reason Stop Dose Admin Lipase/Protease/Amylase 1 each 01/26/19 11:47 Pancreaze 10,500 Unit FEEDTUBE PRN PRN For Clogged Feeding Tube Heparin Sodium (Porcine) 5,000 unit 01/25/19 22:00 01/30/19 09:02 Heparin SUB-Q 5,000 unit Q12HR NIKOLAS Administration Insulin Glargine 45 units 01/29/19 22:00 01/29/19 21:16 Lantus SUB-Q 45 units QHS NIKOLAS Administration Insulin Human Lispro 0 unit 01/25/19 23:15 01/30/19 10:24 Humalog SUB-Q 6 unit Q4HR NIKOLAS Administration Protocol Simple Syrup 15 ml 01/26/19 11:47 Simple Syrup FEEDTUBE PRN PRN Hypoglycemia Simple Syrup 30 ml 01/26/19 11:47 Simple Syrup FEEDTUBE PRN PRN Hypoglycemia Sodium Bicarbonate 325 mg 01/26/19 11:47 Sodium Bicarbonate FEEDTUBE PRN PRN For Clogged Feeding Tube Sodium Chloride 10 ml 01/25/19 22:00 01/30/19 09:02 Sodium Chloride Flush Syringe 10 Ml IV 10 ml BID NIKOLAS Administration Sodium Chloride 10 ml 01/25/19 17:46 Sodium Chloride Flush Syringe 10 Ml IV PRN PRN LINE FLUSH Nutrition/Malnutrition Assess - Dietary Evaluation Nutrition/Malnutrition Findings: Nutrition Notes Start: 01/26/19 08:45 Freq: Status: Active Protocol: Document 01/28/19 10:22 TW (Rec: 01/28/19 10:25 TW [id number]) Co-Sign 01/28/19 10:22 LP Nutrition Notes Initial or Follow up Reassessment Current Diagnosis Hypertension Other Pertinent Diagnosis Acute renail failure, Hyperkalemia, AMS, Dehydration Current Diet Nepo 1.8 at 50 ml/hr Labs/Tests Na 159 BUN 75 K: 3.3 BG 310 Pertinent Medications Reviewed Height 5 ft 6 in Weight 74.9 kg Mar Lin Body Weight (kg) 64.54 BMI 26.6 Subjective/Other Information Follow up for TF tolerance. Per RN, pt is tolerating TF well. Observed Nepro 1.8 running at goal rate (50 ml/hr ). Percent of energy/protein needs met: 100%/100% Burn Absent Trauma Absent #1 Nutrition Diagnosis Inadequate oral intake Diagnosis Progress(for reassessment Continues documentation) Is patient on ventilator? No Is Patient Ambulatory and/or Out of Bed No REE-([facility]-confined to bed) [phone] Calculation Used for Recommendations [facility] Additional Notes PRO: 1.0-1.3 g/kg (75-98 g/day ) Fluid: 1500 mL or per MD Nutrition Intervention Nutrition Support: Nepro 1.8 at 50 mL/hr Flush 100 mL q 4 hr Kcal 2,160 Protein (gm) 97 Fat (gm) 115 Fluid (mL) 872 Goal #1 Continue to meet at least 75% harsh and pro needs via TF Anticipated Discharge Needs: Unable to determine at this time Follow-Up By: 02/04/19 Additional Comments F/u: TF tolerance
[2019-01-30] MEDS ORDERED: NACL 0.45% 1000 ML 1,000 ML IV SCH (12:00)
[2019-01-30] MEDS: D5W 1,000 ML IV SCH ×2 (14:10→21:28)
--- NOTE | 2019-01-30 16:43 | Progress Note ---
Assessment and Plan - Patient Problems (1) Acute kidney injury (nontraumatic) Current Visit: Yes Status: Acute Plan to address problem: Acute kidney injury : Resolved baseline creatinine : 0.7mg/dl current creatinine : 0.9mg/dl I reviewed urinalysis without signficant proteinuria , hyaline cast noted -volume depleted on exam with elevated lactate w -Reviewed renal ultrasound - Repeat BMP. (2) Acute hypernatremia Current Visit: Yes Status: Acute Plan to address problem: Acute hypernatremia 2/2 AMS -appears volume depleted - Hypovolemic Hypernatremia - Will give D5W bolus at 1 25 mL an hour - (3) Hypokalemia Current Visit: Yes Status: Acute Plan to address problem: Hyperkalemia on admission which has resolved We'll give potassium chloride for now (4) Hypertension Current Visit: Yes Status: Acute Plan to address problem: Hypertension continue medications Monitor blood pressure Subjective Principal diagnosis: MYRTLE/Hypernatremia Interval history: 53 year old with medical history significant for HTN , Basal ganglia,hemorrhage presented to the ER from the [facility] with complaints of increasing lethargy and altered mental status which worsened today . on arrival to the ER was hypotensive with blood pressure in the 70s and had an elevated lactate level . He was also confused. labs notable for hyperkalemia of 6 , BUN of 185, creatinine of 5.7 Patient is much improved Denies any shortness of breath orthopnea or PND Limited Access to free water Objective - Vital Signs Vital signs: Vital Signs - 12hr 01/30/19 01/30/19 01/30/19 08:29 08:31 08:51 Temperature 97.7 F Pulse Rate 102 H 105 H Respiratory 20 Rate Blood Pressure 143/86 O2 Sat by Pulse 100 Oximetry 01/30/19 01/30/19 12:00 12:01 Temperature 98.6 F Pulse Rate 100 H Respiratory 20 Rate Blood Pressure 154/87 O2 Sat by Pulse 97 Oximetry - General Appearance General appearance: well-developed, well-nourished EENT: ATNC, PERRL, mucous membranes moist Neck: no JVD Respiratory: Present: Clear to Ascultation Cardiology: regular, S1S2 Gastrointestinal: normal, normoactive bowel sounds Integumentary: no rash Neurologic: aphasic, other (awake and alert. ) Psychiatric: mood/affect appropriate - Lab 01/28/19 06:04 01/30/19 07:16 Most recent lab results Calcium 8.3 mg/dL (8.4-10.2) L 01/30/19 07:16 Magnesium 2.30 mg/dL (1.7-2.3) 01/26/19 20:14 - Imaging Kidney/bladder ultrasound: image reviewed (reviewed ultrasound without hydronephrosis) Medications & Allergies - Medications Allergies/Adverse Reactions: Allergies No Known Allergies Allergy (Unverified 02/07/16 02:00) Home Medications: Home Medications Medication Instructions Recorded Confirmed Last Taken Type Citalopram Hydrobromide [celeXA] 20 mg PO DAILY 02/07/16 01/25/19 02/06/16 History Acetaminophen [Tylenol] 650 mg PO Q4HR PRN 01/25/19 01/25/19 Unknown History AtorvaSTATin [Lipitor] 40 mg PO QHS 01/25/19 01/25/19 Unknown History Insulin Lispro [HumaLOG VIAL] See Protocol SUB-Q BID 01/25/19 01/25/19 Unknown History LORazepam [Ativan] 0.5 mg PO Q8H PRN 01/25/19 01/25/19 Unknown History Latanoprost [Xalatan] 1 drop OU HS 01/25/19 01/25/19 Unknown History Lisinopril [Zestril] 20 mg PO QDAY 01/25/19 01/25/19 Unknown History Magnesium Oxide [Mag-Ox] 400 mg PO QDAY 01/25/19 01/25/19 Unknown History Quetiapine Fumarate [SEROquel] 50 mg PO TID 01/25/19 01/25/19 Unknown History Thiamine [Vitamin B-1] 100 mg PO AC 01/25/19 01/25/19 Unknown History Timolol 0.5% [Timoptic] 1 drop OU BID 01/25/19 01/25/19 Unknown History hydroCHLOROthiazide [HCTZ] 25 mg PO QDAY 01/25/19 01/25/19 Unknown History Active Medications: Generic Name Dose Route Start Last Admin Trade Name Freq PRN Reason Stop Dose Admin Lipase/Protease/Amylase 1 each 01/26/19 11:47 Pancreamber Dior 10,500 Unit FEEDTUBE PRN PRN For Clogged Feeding Tube Heparin Sodium (Porcine) 5,000 unit 01/25/19 22:00 01/30/19 09:02 Heparin SUB-Q 5,000 unit Q12HR NIKOLAS Administration Dextrose 1,000 mls @ 125 mls/hr 01/30/19 14:00 01/30/19 14:10 D5w IV 125 mls/hr DIRECT NIKOLAS Administration Insulin Glargine 45 units 01/29/19 22:00 01/29/19 21:16 Lantus SUB-Q 45 units QHS NIKOLAS Administration Insulin Human Lispro 0 unit 01/25/19 23:15 01/30/19 14:29 Humalog SUB-Q 4 unit Q4HR NIKOLAS Administration Protocol Simple Syrup 15 ml 01/26/19 11:47 Simple Syrup FEEDTUBE PRN PRN Hypoglycemia Simple Syrup 30 ml 01/26/19 11:47 Simple Syrup FEEDTUBE PRN PRN Hypoglycemia Sodium Bicarbonate 325 mg 01/26/19 11:47 Sodium Bicarbonate FEEDTUBE PRN PRN For Clogged Feeding Tube Sodium Chloride 10 ml 01/25/19 22:00 01/30/19 09:02 Sodium Chloride Flush Syringe 10 Ml IV 10 ml BID NIKOLAS Administration Sodium Chloride 10 ml 01/25/19 17:46 Sodium Chloride Flush Syringe 10 Ml IV PRN PRN LINE FLUSH
[2019-01-30] MEDS ORDERED: POTASSIUM CHLORIDE FEEDTUBE ONE (17:00)
[2019-01-30] MEDS: LANTUS SUB-Q SCH (21:29)
[2019-01-31] MEDS: HumaLOG SUB-Q SCH ×7 (01:57→21:30)
[2019-01-31 05:53] LABS: Hematocrit 31.7 % (35.5-45.6); Hemoglobin 10.1 gm/dl (11.8-15.2); Mean Corpuscular HGB Conc 32 % (32-34); Mean Corpuscular Volume 79 fl (84-94); Platelet Count 188 K/mm3 (140-440); Red Blood Count 4.04 M/mm3 (3.65-5.03); Red Cell Distribution Width 17.4 % (13.2-15.2)
[2019-01-31] MEDS: D5W 1,000 ML IV SCH (06:05)
[2019-01-31 06:08] LABS: BUN/Creatinine Ratio 35; Blood Urea Nitrogen 28 mg/dL (9-20); Calcium 7.8 mg/dL (8.4-10.2); Hemolysis Index 16
[2019-01-31 08:22] LABS: Band Neutrophils # (Manual) 0.1 K/mm3; Eosinophils % (Manual) 0 % (0.0-4.3); Total Cells Counted 100
[2019-01-31 08:23] LABS: Anisocytosis 1+; Basophils % (Manual) 0 % (0.0-1.8); Hypochromasia 1+
[2019-01-31] MEDS: HEPARIN SUB-Q SCH ×2 (10:07→21:29)
[2019-01-31] MEDS: SODIUM CHLORIDE FLUSH SYRINGE 10 ML IV SCH ×2 (10:07→21:31)
--- NOTE | 2019-01-31 11:18 | Progress Note ---
Assessment and Plan Assessment and plan: Metabolic encephalopathy. Patient remains confused requiring restraints. Continue to treat underlying causes of hypernatremia. Check ammonia levels. Neurology consultation. Head CT negative. Consider MRI brain Hypernatremia. Continue free water and IV fluids Acute renal failure/MYRTLE. Etiology likely secondary to vasomotor nephropathy/dehydration. Nephrology consulted. Hyperlipidemia. Continue statins. Hypokalemia. Replete potassium as needed. Hypertension. Continue antihypertensive medications. Diabetes mellitus type 2. Continue Accu-Cheks, sliding scale regular insulin and Lantus History Interval history: No new issues overnight. Patient still confused and requiring restraints Hospitalist Physical - Constitutional Vitals: Temp Pulse Resp BP Pulse Ox 97.5 F L 91 H 18 148/87 100 01/31/19 08:44 01/31/19 08:44 01/31/19 08:44 01/31/19 08:44 01/31/19 08:44 General appearance: Present: no acute distress, well-nourished - EENT Eyes: Present: PERRL, EOM intact ENT: hearing intact, clear oral mucosa, dentition normal - Neck Neck: Present: supple, normal ROM - Respiratory Respiratory effort: normal Respiratory: bilateral: CTA - Cardiovascular Rhythm: regular Heart Sounds: Present: S1 & S2. Absent: gallop, rub - Extremities Extremities: no ischemia, No edema, Full ROM - Abdominal General gastrointestinal: soft, non-tender, non-distended, normal bowel sounds - Integumentary Integumentary: Present: clear, warm, dry - Neurologic Neurologic: CNII-XII intact, moves all extremities Results - Labs CBC & Chem 7: 01/31/19 04:42 01/31/19 04:42 Labs: Laboratory Last Values WBC 7.3 K/mm3 (4.5-11.0) 01/31/19 04:42 RBC 4.04 M/mm3 (3.65-5.03) 01/31/19 04:42 Hgb 10.1 gm/dl (11.8-15.2) L 01/31/19 04:42 Hct 31.7 % (35.5-45.6) L 01/31/19 04:42 MCV 79 fl (84-94) L 01/31/19 04:42 MCH 25 pg (28-32) L 01/31/19 04:42 MCHC 32 % (32-34) 01/31/19 04:42 RDW 17.4 % (13.2-15.2) H 01/31/19 04:42 Plt Count 188 K/mm3 (140-440) 01/31/19 04:42 Lymph % (Auto) 19.1 % (13.4-35.0) 01/28/19 06:04 [place] % (Auto) 8.7 % (0.0-7.3) H 01/28/19 06:04 Eos % (Auto) 3.1 % (0.0-4.3) 01/28/19 06:04 Baso % (Auto) 0.3 % (0.0-1.8) 01/28/19 06:04 Lymph # 1.3 K/mm3 (1.2-5.4) 01/28/19 06:04 [place] # 0.6 K/mm3 (0.0-0.8) 01/28/19 06:04 Eos # 0.2 K/mm3 (0.0-0.4) 01/28/19 06:04 Baso # 0.0 K/mm3 (0.0-0.1) 01/28/19 06:04 Add Manual Diff Complete 01/31/19 04:42 Total Counted 100 01/31/19 04:42 Seg Neutrophils % 68.8 % (40.0-70.0) 01/28/19 06:04 Seg Neuts % (Manual) 75.0 % (40.0-70.0) H 01/31/19 04:42 Band Neutrophils % 2.0 % 01/31/19 04:42 Lymphocytes % (Manual) 18.0 % (13.4-35.0) 01/31/19 04:42 Reactive Lymphs % (Man) 0 % 01/31/19 04:42 Monocytes % (Manual) 3.0 % (0.0-7.3) 01/31/19 04:42 Eosinophils % (Manual) 0 % (0.0-4.3) 01/31/19 04:42 Basophils % (Manual) 0 % (0.0-1.8) 01/31/19 04:42 Metamyelocytes % 2.0 % 01/31/19 04:42 Myelocytes % 0 % 01/31/19 04:42 Promyelocytes % 0 % 01/31/19 04:42 Blast Cells % 0 % 01/31/19 04:42 Nucleated RBC % 2.0 % (0.0-0.9) H 01/31/19 04:42 Seg Neutrophils # 4.8 K/mm3 (1.8-7.7) 01/28/19 06:04 Seg Neutrophils # Man 5.5 K/mm3 (1.8-7.7) 01/31/19 04:42 Band Neutrophils # 0.1 K/mm3 01/31/19 04:42 Lymphocytes # (Manual) 1.3 K/mm3 (1.2-5.4) 01/31/19 04:42 Abs React Lymphs (Man) 0.0 K/mm3 01/31/19 04:42 Monocytes # (Manual) 0.2 K/mm3 (0.0-0.8) 01/31/19 04:42 Eosinophils # (Manual) 0.0 K/mm3 (0.0-0.4) 01/31/19 04:42 Basophils # (Manual) 0.0 K/mm3 (0.0-0.1) 01/31/19 04:42 Metamyelocytes # 0.1 K/mm3 01/31/19 04:42 Myelocytes # 0.0 K/mm3 01/31/19 04:42 Promyelocytes # 0.0 K/mm3 01/31/19 04:42 Blast Cells # 0.0 K/mm3 01/31/19 04:42 WBC Morphology Not Reportable 01/31/19 04:42 Hypersegmented Neuts Not Reportable 01/31/19 04:42 Hyposegmented Neuts Not Reportable 01/31/19 04:42 Hypogranular Neuts Not Reportable 01/31/19 04:42 Smudge Cells Not Reportable 01/31/19 04:42 Toxic Granulation Not Reportable 01/31/19 04:42 Toxic Vacuolation Not Reportable 01/31/19 04:42 Dohle Bodies Not Reportable 01/31/19 04:42 Pelger-Huet Anomaly Not Reportable 01/31/19 04:42 Benita Rods Not Reportable 01/31/19 04:42 Platelet Estimate Appears normal 01/31/19 04:42 Clumped Platelets Not Reportable 01/31/19 04:42 Plt Clumps, EDTA Not Reportable 01/31/19 04:42 Large Platelets Not Reportable 01/31/19 04:42 Giant Platelets Not Reportable 01/31/19 04:42 Platelet Satelliting Not Reportable 01/31/19 04:42 Plt Morphology Comment Not Reportable 01/31/19 04:42 RBC Morphology Not Reportable 01/31/19 04:42 Dimorphic RBCs Not Reportable 01/31/19 04:42 Polychromasia Not Reportable 01/31/19 04:42 Hypochromasia 1+ 01/31/19 04:42 Poikilocytosis Not Reportable 01/31/19 04:42 Anisocytosis 1+ 01/31/19 04:42 Microcytosis Not Reportable 01/31/19 04:42 Macrocytosis Not Reportable 01/31/19 04:42 Spherocytes Not Reportable 01/31/19 04:42 Pappenheimer Bodies Not Reportable 01/31/19 04:42 Sickle Cells Not Reportable 01/31/19 04:42 Target Cells Not Reportable 01/31/19 04:42 Tear Drop Cells Not Reportable 01/31/19 04:42 Ovalocytes Not Reportable 01/31/19 04:42 Helmet Cells Not Reportable 01/31/19 04:42 [place] Bodies Not Reportable 01/31/19 04:42 Rachel Rings Not Reportable 01/31/19 04:42 [place] Cells Not Reportable 01/31/19 04:42 Bite Cells Not Reportable 01/31/19 04:42 Crenated Cell Not Reportable 01/31/19 04:42 Elliptocytes Not Reportable 01/31/19 04:42 Acanthocytes (Spur) Not Reportable 01/31/19 04:42 Rouleaux Not Reportable 01/31/19 04:42 Hemoglobin C Crystals Not Reportable 01/31/19 04:42 Schistocytes Not Reportable 01/31/19 04:42 Malaria parasites Not Reportable 01/31/19 04:42 Rolan Bodies Not Reportable 01/31/19 04:42 Hem Pathologist Commnt No 01/31/19 04:42 POC ABG pH 7.479 (7.35-7.45) H 01/28/19 19:00 POC ABG pCO2 32.3 (35-45) L 01/28/19 19:00 POC ABG pO2 93 (80-105) 01/28/19 19:00 POC ABG HCO3 24.0 (22-26 mml/L) 01/28/19 19:00 POC ABG Total CO2 25 (23-27mmol/L) 01/28/19 19:00 POC ABG O2 Sat 98 01/28/19 19:00 POC ABG Base Excess 0 ((-2) - (+3)mmol/L) 01/28/19 19:00 FiO2 21 % 01/28/19 19:00 Sodium 147 mmol/L (137-145) H D 01/31/19 04:42 Potassium 3.2 mmol/L (3.6-5.0) L 01/31/19 04:42 Chloride 110.0 mmol/L (98-107) H 01/31/19 04:42 Carbon Dioxide 25 mmol/L (22-30) 01/31/19 04:42 Anion Gap 15 mmol/L 01/31/19 04:42 BUN 28 mg/dL (9-20) H 01/31/19 04:42 Creatinine 0.8 mg/dL (0.8-1.5) 01/31/19 04:42 Estimated GFR > 60 ml/min 01/31/19 04:42 BUN/Creatinine Ratio 35 % 01/31/19 04:42 Glucose 261 mg/dL (75-100) H 01/31/19 04:42 POC Glucose 239 (70-105) H 01/31/19 05:10 Lactic Acid 1.40 mmol/L (0.7-2.0) 01/25/19 18:50 Calcium 7.8 mg/dL (8.4-10.2) L 01/31/19 04:42 Magnesium 2.30 mg/dL (1.7-2.3) 01/26/19 20:14 Total Bilirubin 0.20 mg/dL (0.1-1.2) 01/26/19 04:25 AST 12 units/L (5-40) 01/26/19 04:25 ALT 17 units/L (7-56) 01/26/19 04:25 Alkaline Phosphatase 84 units/L (35-129) 01/26/19 04:25 Ammonia 51.0 umol/L (25-60) 01/25/19 13:31 Total Creatine Kinase 294 units/L (55-170) H 01/25/19 13:31 CK-MB (CK-2) 2.2 ng/mL (0.0-4.0) 01/25/19 13:31 CK-MB (CK-2) Rel Index 0.7 (0-4) 01/25/19 13:31 Troponin T 0.031 ng/mL (0.00-0.029) H D 01/26/19 04:25 Total Protein 6.4 g/dL (6.3-8.2) 01/26/19 04:25 Albumin 2.3 g/dL (3.9-5) L 01/26/19 04:25 Albumin/Globulin Ratio 0.6 % 01/26/19 04:25 Triglycerides 172 mg/dL (2-149) H 01/25/19 13:31 Cholesterol 148 mg/dL (50-199) 01/25/19 13:31 LDL Cholesterol Direct 82 mg/dL (50-130) 01/25/19 13:31 HDL Cholesterol 30 mg/dL (40-59) L 01/25/19 13:31 Cholesterol/HDL Ratio 4.93 % 01/25/19 13:31 TSH 4.020 mlU/mL (0.270-4.200) 01/25/19 13:31 Free T4 0.89 ng/dL (0.76-1.46) 01/25/19 13:31 Urine Color Yellow (Yellow) 01/25/19 15:00 Urine Turbidity Slightly-cloudy (Clear) 01/25/19 15:00 Urine pH 5.0 (5.0-7.0) 01/25/19 15:00 Ur Specific [place] 1.018 (1.003-1.030) 01/25/19 15:00 Urine Protein <15 mg/dl mg/dL (Negative) 01/25/19 15:00 Urine Glucose (UA) 50 mg/dL (Negative) 01/25/19 15:00 Urine Ketones Neg mg/dL (Negative) 01/25/19 15:00 Urine Blood Neg (Negative) 01/25/19 15:00 Urine Nitrite Neg (Negative) 01/25/19 15:00 Urine Bilirubin Neg (Negative) 01/25/19 15:00 Urine Urobilinogen 4.0 mg/dL (<2.0) 01/25/19 15:00 Ur Leukocyte Esterase Neg (Negative) 01/25/19 15:00 Urine WBC (Auto) 3.0 /HPF (0.0-6.0) 01/25/19 15:00 Urine RBC (Auto) 1.0 /HPF (0.0-6.0) 01/25/19 15:00 U Epithel Cells (Auto) < 1.0 /HPF (0-13.0) 01/25/19 15:00 Hyaline Casts 9 /LPF 01/25/19 15:00 Active Medications - Current Medications Current Medications: Generic Name Dose Route Start Last Admin Trade Name Freq PRN Reason Stop Dose Admin Lipase/Protease/Amylase 1 each 01/26/19 11:[address] 10,500 Unit FEEDTUBE PRN PRN For Clogged Feeding Tube Heparin Sodium (Porcine) 5,000 unit 01/25/19 22:00 01/31/19 10:07 Heparin SUB-Q 5,000 unit Q12HR NIKOLAS Administration Dextrose 1,000 mls @ 125 mls/hr 01/30/19 14:00 01/31/19 06:05 D5w IV 125 mls/hr DIRECT NIKOLAS Administration Insulin Glargine 45 units 01/29/19 22:00 01/30/19 21:29 Lantus SUB-Q 45 units QHS NIKOLAS Administration Insulin Human Lispro 0 unit 01/25/19 23:15 01/31/19 10:07 Humalog SUB-Q 4 unit Q4HR NIKOLAS Administration Protocol Simple Syrup 15 ml 01/26/19 11:47 Simple Syrup FEEDTUBE PRN PRN Hypoglycemia Simple Syrup 30 ml 01/26/19 11:47 Simple Syrup FEEDTUBE PRN PRN Hypoglycemia Sodium Bicarbonate 325 mg 01/26/19 11:47 Sodium Bicarbonate FEEDTUBE PRN PRN For Clogged Feeding Tube Sodium Chloride 10 ml 01/25/19 22:00 01/31/19 10:07 Sodium Chloride Flush Syringe 10 Ml IV 10 ml BID NIKOLAS Administration Sodium Chloride 10 ml 01/25/19 17:46 Sodium Chloride Flush Syringe 10 Ml IV PRN PRN LINE FLUSH Nutrition/Malnutrition Assess - Dietary Evaluation Nutrition/Malnutrition Findings: Nutrition Notes Start: 01/26/19 08:45 Freq: Status: Active Protocol: Document 01/28/19 10:22 TW (Rec: 01/28/19 10:25 TW [id number]) Co-Sign 01/28/19 10:22 LP Nutrition Notes Initial or Follow up Reassessment Current Diagnosis Hypertension Other Pertinent Diagnosis Acute renail failure, Hyperkalemia, AMS, Dehydration Current Diet Nepo 1.8 at 50 ml/hr Labs/Tests Na 159 BUN 75 K: 3.3 BG 310 Pertinent Medications Reviewed Height 5 ft 6 in Weight 74.9 kg [place] Body Weight (kg) 64.54 BMI 26.6 Subjective/Other Information Follow up for TF tolerance. Per RN, pt is tolerating TF well. Observed Nepro 1.8 running at goal rate (50 ml/hr ). Percent of energy/protein needs met: 100%/100% Burn Absent Trauma Absent #1 Nutrition Diagnosis Inadequate oral intake Diagnosis Progress(for reassessment Continues documentation) Is patient on ventilator? No Is Patient Ambulatory and/or Out of Bed No REE-([facility]-confined to bed) [phone] Calculation Used for Recommendations [facility] Additional Notes PRO: 1.0-1.3 g/kg (75-98 g/day ) Fluid: 1500 mL or per MD Nutrition Intervention Nutrition Support: Nepro 1.8 at 50 mL/hr Flush 100 mL q 4 hr Kcal 2,160 Protein (gm) 97 Fat (gm) 115 Fluid (mL) 872 Goal #1 Continue to meet at least 75% harsh and pro needs via TF Anticipated Discharge Needs: Unable to determine at this time Follow-Up By: 02/04/19 Additional Comments F/u: TF tolerance
[2019-01-31] MEDS ORDERED: KCL 20MEQ/100ML 20 MEQ/100 ML BAG IV ONE (12:30)
[2019-01-31] MEDS ORDERED: POTASSIUM CHLORIDE FEEDTUBE ONE (13:00)
[2019-01-31] MEDS: KCL 10MEQ/100ML 10 MEQ/100 ML BAG IV SCH ×2 (13:23→15:30)
--- NOTE | 2019-01-31 14:57 | Progress Note ---
Assessment and Plan - Patient Problems (1) Acute kidney injury (nontraumatic) Current Visit: Yes Status: Acute Plan to address problem: Acute kidney injury : Resolved baseline creatinine : 0.7mg/dl current creatinine : 0.9mg/dl I reviewed urinalysis without signficant proteinuria , hyaline cast noted -volume depleted on exam with elevated lactate -Reviewed renal ultrasound - Repeat BMP. (2) Acute hypernatremia Current Visit: Yes Status: Acute Plan to address problem: Acute hypernatremia 2/2 AMS -appears volume depleted - Hypovolemic Hypernatremia -Continue D5W infusion at 1 25 mL an hour - (3) Hypokalemia Current Visit: Yes Status: Acute Plan to address problem: Hypokalemia We'll give potassium chloride replacement Recheck basic metabolic panel Check magnesium levels (4) Hypertension Current Visit: Yes Status: Acute Plan to address problem: Hypertension continue medications Monitor blood pressure Subjective Principal diagnosis: MYRTLE/Hypernatremia Interval history: 53 year old with medical history significant for HTN , Basal ganglia,hemorrhage presented to the ER from the [facility] with complaints of increasing lethargy and altered mental status which worsened today . on arrival to the ER was hypotensive with blood pressure in the 70s and had an elevated lactate level . He was also confused. labs notable for hyperkalemia of 6 , BUN of 185, creatinine of 5.7 Patient is much improved Denies any shortness of breath orthopnea or PND Limited Access to free water Gastric tube in place Objective - Vital Signs Vital signs: Vital Signs - 12hr 01/31/19 01/31/19 01/31/19 04:02 08:44 10:00 Temperature 98.3 F 97.5 F L Pulse Rate 91 H 95 H Respiratory 14 18 Rate Blood Pressure 153/100 148/87 O2 Sat by Pulse 100 Oximetry - General Appearance General appearance: well-developed, well-nourished EENT: ATNC, PERRL, mucous membranes moist Neck: no JVD Respiratory: Present: Clear to Ascultation Cardiology: regular, S1S2 Gastrointestinal: normal, normoactive bowel sounds Integumentary: no rash Neurologic: alert and oriented x3, CN 3-12 intact Psychiatric: mood/affect appropriate - Lab 01/31/19 04:42 01/31/19 04:42 Most recent lab results Calcium 7.8 mg/dL (8.4-10.2) L 01/31/19 04:42 Magnesium 2.30 mg/dL (1.7-2.3) 01/26/19 20:14 - Imaging Chest x-ray: image reviewed (I reviewed chest x-ray without any overt edema) Medications & Allergies - Medications Allergies/Adverse Reactions: Allergies No Known Allergies Allergy (Unverified 02/07/16 02:00) Home Medications: Home Medications Medication Instructions Recorded Confirmed Last Taken Type Citalopram Hydrobromide [celeXA] 20 mg PO DAILY 02/07/16 01/25/19 02/06/16 H istory Acetaminophen [Tylenol] 650 mg PO Q4HR PRN 01/25/19 01/25/19 Unknown History AtorvaSTATin [Lipitor] 40 mg PO QHS 01/25/19 01/25/19 Unknown History Insulin Lispro [HumaLOG VIAL] See Protocol SUB-Q BID 01/25/19 01/25/19 Unknown History LORazepam [Ativan] 0.5 mg PO Q8H PRN 01/25/19 01/25/19 Unknown History Latanoprost [Xalatan] 1 drop OU HS 01/25/19 01/25/19 Unknown History Lisinopril [Zestril] 20 mg PO QDAY 01/25/19 01/25/19 Unknown History Magnesium Oxide [Mag-Ox] 400 mg PO QDAY 01/25/19 01/25/19 Unknown History Quetiapine Fumarate [SEROquel] 50 mg PO TID 01/25/19 01/25/19 Unknown History Thiamine [Vitamin B-1] 100 mg PO AC 01/25/19 01/25/19 Unknown History Timolol 0.5% [Timoptic] 1 drop OU BID 01/25/19 01/25/19 Unknown History hydroCHLOROthiazide [HCTZ] 25 mg PO QDAY 01/25/19 01/25/19 Unknown History Active Medications: Generic Name Dose Route Start Last Admin Trade Name Freq PRN Reason Stop Dose Admin Lipase/Protease/Amylase 1 each 01/26/19 11:47 Pancreaze 10,500 Unit FEEDTUBE PRN PRN For Clogged Feeding Tube Heparin Sodium (Porcine) 5,000 unit 01/25/19 22:00 01/31/19 10:07 Heparin SUB-Q 5,000 unit Q12HR NIKOLAS Administration Dextrose 1,000 mls @ 125 mls/hr 01/30/19 14:00 01/31/19 06:05 D5w IV 125 mls/hr DIRECT NIKOLAS Administration Potassium Chloride 10 meq in 100 mls @ 100 mls/hr 01/31/19 14:00 01/31/19 13:23 Kcl 10meq/100ml IV 01/31/19 15:59 100 mls/hr Q1H NIKOLAS Administration Insulin Glargine 45 units 01/29/19 22:00 01/30/19 21:29 Lantus SUB-Q 45 units QHS NIKOLAS Administration Insulin Human Lispro 0 unit 01/25/19 23:15 01/31/19 10:07 Humalog SUB-Q 4 unit Q4HR NIKOLAS Administration Protocol Simple Syrup 15 ml 01/26/19 11:47 Simple Syrup FEEDTUBE PRN PRN Hypoglycemia Simple Syrup 30 ml 01/26/19 11:47 Simple Syrup FEEDTUBE PRN PRN Hypoglycemia Sodium Bicarbonate 325 mg 01/26/19 11:47 Sodium Bicarbonate FEEDTUBE PRN PRN For Clogged Feeding Tube Sodium Chloride 10 ml 01/25/19 22:00 01/31/19 10:07 Sodium Chloride Flush Syringe 10 Ml IV 10 ml BID NIKOLAS Administration Sodium Chloride 10 ml 01/25/19 17:46 Sodium Chloride Flush Syringe 10 Ml IV PRN PRN LINE FLUSH
--- NOTE | 2019-01-31 15:21 | Progress Note ---
Assessment and Plan Acute metabolic encephalopathy MYRTLE (acute kidney injury) Acute hypernatremia Hyperkalemia Metabolic acidosis with increased anion gap and reduced excretion of inorganic acids Sepsis IDDM (insulin dependent diabetes mellitus) HTN (hypertension) HLD (hyperlipidemia) BPH (benign prostatic hyperplasia) Hypokalemia Replete potassium Mobility for pressure ulcer prevention - supplemental oxygen and wean to keep O2 sat's > 90% - bronchodilators with pulmonary hygiene per RT - aspiration precautions - enteral nutrition as tolerated( small bowel feeding tube) - azotemia per nephrology - increase free water for hypernatremia, 1Liter of hypotonic solution - continue glycemic control with SSI for target BG < 180mg/dl - Antibiotics, complete course -PT/OT Subjective Date of service: 01/31/19 Principal diagnosis: MYRTLE/Hypernatremia Interval history: Patient is seen today for: Acute metabolic encephalopathy; MYRTLE (acute kidney injury); Acute hypernatremia; Hyperkalemia; Metabolic acidosis with increased anion gap and reduced excretion of inorganic acids; Severe Sepsis; IDDM (insulin dependent diabetes mellitus) Seen and examined at bedside; 24hour events reviewed; nursing and respiratory care staff consulted; no adverse overnight events reported to me; resting peacefully in bed; more alert today; tolerating tube feeds; remains on supplemental oxygen; no emesis or overt aspiration He appears to be more awake everyday, responding to questions with monosyllabic answers today. Objective Vital Signs - 12hr 01/31/19 01/31/19 01/31/19 04:02 08:44 10:00 Temperature 98.3 F 97.5 F L Pulse Rate 91 H 95 H Respiratory 14 18 Rate Blood Pressure 153/100 148/87 O2 Sat by Pulse 100 Oximetry Constitutional: no acute distress, alert, other (middle aged chronically ill looking AAM) Eyes: non-icteric ENT: oropharynx moist Neck: supple, no lymphadenopathy, no JVD, other (no thyromegaly) Effort: normal Ascultation: Bilateral: clear, diminished breath sounds Percussion: Bilateral: not dull Cardiovascular: regular rate and rhythm Gastrointestinal: normoactive bowel sounds, soft, non-tender, non-distended Integumentary: normal Extremities: no cyanosis, no edema, pulses normal, no ischemia or petechiae Neurologic: non-focal exam, pupils equal and round, other (hemiparesis, more awake and alert) Psychiatric: other (Can Not asses due to his mental status.) CBC and BMP: 01/31/19 04:42 01/31/19 04:42 ABG, PT/INR, D-dimer: ABG POC ABG pH 7.479 (7.35-7.45) H 01/28/19 19:00 POC ABG pCO2 32.3 (35-45) L 01/28/19 19:00 POC ABG pO2 93 (80-105) 01/28/19 19:00 POC ABG HCO3 24.0 (22-26 mml/L) 01/28/19 19:00 POC ABG Total CO2 25 (23-27mmol/L) 01/28/19 19:00 POC ABG O2 Sat 98 01/28/19 19:00 Abnormal lab findings: Abnormal Labs 01/25/19 01/25/19 01/25/19 13:31 13:31 13:31 WBC 12.0 H RBC 6.00 H Hgb Hct 47.7 H MCV 80 L MCH 25 L MCHC 31 L RDW 18.1 H Lymph % (Auto) 10.4 L [place] % (Auto) 9.3 H Lymph # [place] # 1.1 H Baso # Seg Neutrophils % 78.5 H Seg Neuts % (Manual) Nucleated RBC % Seg Neutrophils # 9.5 H POC ABG pH POC ABG pCO2 Sodium 159 H Potassium 6.0 H Chloride 119.0 H Carbon Dioxide BUN 185 H Creatinine 5.7 H D Glucose 433 H POC Glucose Lactic Acid 2.60 H* Calcium Total Creatine Kinase 294 H Troponin T 0.080 H Albumin 2.6 L Triglycerides 172 H HDL Cholesterol 30 L 01/25/19 01/25/19 01/25/19 16:03 16:03 17:11 WBC RBC Hgb Hct MCV MCH MCHC RDW Lymph % (Auto) [place] % (Auto) Lymph # [place] # Baso # Seg Neutrophils % Seg Neuts % (Manual) Nucleated RBC % Seg Neutrophils # POC ABG pH POC ABG pCO2 Sodium Potassium Chloride Carbon Dioxide BUN Creatinine Glucose POC Glucose 346 H Lactic Acid 2.20 H* 2.30 H* Calcium Total Creatine Kinase Troponin T Albumin Triglycerides HDL Cholesterol 01/25/19 01/25/19 01/26/19 18:50 23:08 00:22 WBC RBC Hgb Hct MCV MCH MCHC RDW Lymph % (Auto) [place] % (Auto) Lymph # [place] # Baso # Seg Neutrophils % Seg Neuts % (Manual) Nucleated RBC % Seg Neutrophils # POC ABG pH POC ABG pCO2 Sodium 162 H* Potassium Chloride 125.2 H Carbon Dioxide BUN 180 H Creatinine 5.1 H Glucose 438 H POC Glucose 480 H Lactic Acid Calcium Total Creatine Kinase Troponin T 0.045 H D Albumin Triglycerides HDL Cholesterol 01/26/19 01/26/19 01/26/19 02:16 04:25 04:25 WBC RBC 5.21 H Hgb Hct MCV 80 L MCH 25 L MCHC 31 L RDW 18.0 H Lymph % (Auto) 8.2 L [place] % (Auto) 7.6 H Lymph # 0.8 L [place] # Baso # 0.2 H Seg Neutrophils % 81.6 H Seg Neuts % (Manual) Nucleated RBC % Seg Neutrophils # 8.3 H POC ABG pH POC ABG pCO2 Sodium 158 H Potassium Chloride 122.9 H Carbon Dioxide 21 L BUN 163 H Creatinine 3.9 H Glucose 465 H POC Glucose 462 H Lactic Acid Calcium 7.8 L Total Creatine Kinase Troponin T Albumin 2.3 L Triglycerides HDL Cholesterol 01/26/19 01/26/19 01/26/19 04:25 05:33 10:08 WBC RBC Hgb Hct MCV MCH MCHC RDW Lymph % (Auto) [place] % (Auto) Lymph # [place] # Baso # Seg Neutrophils % Seg Neuts % (Manual) Nucleated RBC % Seg Neutrophils # POC ABG pH POC ABG pCO2 Sodium 160 H Potassium Chloride 123.9 H Carbon Dioxide 19 L BUN 161 H Creatinine 3.9 H Glucose 468 H POC Glucose 309 H 316 H Lactic Acid Calcium 7.8 L Total Creatine Kinase Troponin T 0.031 H D Albumin Triglycerides HDL Cholesterol 01/26/19 01/26/19 01/27/19 14:30 16:11 03:18 WBC RBC Hgb Hct MCV MCH MCHC RDW Lymph % (Auto) [place] % (Auto) Lymph # [place] # Baso # Seg Neutrophils % Seg Neuts % (Manual) Nucleated RBC % Seg Neutrophils # POC ABG pH POC ABG pCO2 Sodium 160 H Potassium 3.4 L D Chloride 124.8 H Carbon Dioxide BUN 141 H Creatinine 2.9 H Glucose 126 H POC Glucose 167 H 184 H Lactic Acid Calcium 8.3 L Total Creatine Kinase Troponin T Albumin Triglycerides HDL Cholesterol 01/27/19 01/27/19 01/27/19 06:23 06:33 06:33 WBC RBC Hgb Hct MCV 79 L MCH 25 L MCHC 31 L RDW 17.7 H Lymph % (Auto) [place] % (Auto) 8.1 H Lymph # [place] # Baso # Seg Neutrophils % 71.1 H Seg Neuts % (Manual) Nucleated RBC % Seg Neutrophils # POC ABG pH POC ABG pCO2 Sodium 157 H Potassium Chloride 121.4 H Carbon Dioxide BUN 117 H Creatinine 1.9 H Glucose 200 H POC Glucose 219 H Lactic Acid Calcium 8.3 L Total Creatine Kinase Troponin T Albumin Triglycerides HDL Cholesterol 01/27/19 01/27/19 01/27/19 11:13 12:46 16:10 WBC RBC Hgb Hct MCV MCH MCHC RDW Lymph % (Auto) [place] % (Auto) Lymph # [place] # Baso # Seg Neutrophils % Seg Neuts % (Manual) Nucleated RBC % Seg Neutrophils # POC ABG pH POC ABG pCO2 Sodium Potassium Chloride Carbon Dioxide BUN Creatinine Glucose POC Glucose 200 H 205 H 230 H Lactic Acid Calcium Total Creatine Kinase Troponin T Albumin Triglycerides HDL Cholesterol 01/28/19 01/28/19 01/28/19 00:09 06:04 06:04 WBC RBC Hgb 11.5 L Hct MCV 77 L MCH 25 L MCHC RDW 17.4 H Lymph % (Auto) [place] % (Auto) 8.7 H Lymph # [place] # Baso # Seg Neutrophils % Seg Neuts % (Manual) Nucleated RBC % Seg Neutrophils # POC ABG pH POC ABG pCO2 Sodium 159 H Potassium 3.3 L Chloride 123.1 H Carbon Dioxide BUN 75 H Creatinine Glucose 310 H POC Glucose 177 H Lactic Acid Calcium Total Creatine Kinase Troponin T Albumin Triglycerides HDL Cholesterol 01/28/19 01/28/19 01/28/19 06:42 12:28 15:10 WBC RBC Hgb Hct MCV MCH MCHC RDW Lymph % (Auto) [place] % (Auto) Lymph # [place] # Baso # Seg Neutrophils % Seg Neuts % (Manual) Nucleated RBC % Seg Neutrophils # POC ABG pH POC ABG pCO2 Sodium Potassium Chloride Carbon Dioxide BUN Creatinine Glucose POC Glucose 384 H 280 H 282 H Lactic Acid Calcium Total Creatine Kinase Troponin T Albumin Triglycerides HDL Cholesterol 01/28/19 01/28/19 01/28/19 18:54 19:00 21:44 WBC RBC Hgb Hct MCV MCH MCHC RDW Lymph % (Auto) [place] % (Auto) Lymph # [place] # Baso # Seg Neutrophils % Seg Neuts % (Manual) Nucleated RBC % Seg Neutrophils # POC ABG pH 7.479 H POC ABG pCO2 32.3 L Sodium Potassium Chloride Carbon Dioxide BUN Creatinine Glucose POC Glucose 189 H 179 H Lactic Acid Calcium Total Creatine Kinase Troponin T Albumin Triglycerides HDL Cholesterol 01/29/19 01/29/19 01/29/19 01:48 04:37 05:38 WBC RBC Hgb Hct MCV MCH MCHC RDW Lymph % (Auto) [place] % (Auto) Lymph # [place] # Baso # Seg Neutrophils % Seg Neuts % (Manual) Nucleated RBC % Seg Neutrophils # POC ABG pH POC ABG pCO2 Sodium 164 H* Potassium 3.5 L Chloride 128.9 H Carbon Dioxide BUN 54 H Creatinine Glucose 271 H POC Glucose 238 H 248 H Lactic Acid Calcium Total Creatine Kinase Troponin T Albumin Triglycerides HDL Cholesterol 01/29/19 01/29/19 01/29/19 10:26 13:19 17:57 WBC RBC Hgb Hct MCV MCH MCHC RDW Lymph % (Auto) [place] % (Auto) Lymph # [place] # Baso # Seg Neutrophils % Seg Neuts % (Manual) Nucleated RBC % Seg Neutrophils # POC ABG pH POC ABG pCO2 Sodium Potassium Chloride Carbon Dioxide BUN Creatinine Glucose POC Glucose 288 H 301 H 242 H Lactic Acid Calcium Total Creatine Kinase Troponin T Albumin Triglycerides HDL Cholesterol 01/29/19 01/30/19 01/30/19 20:25 01:51 05:23 WBC RBC Hgb Hct MCV MCH MCHC RDW Lymph % (Auto) [place] % (Auto) Lymph # [place] # Baso # Seg Neutrophils % Seg Neuts % (Manual) Nucleated RBC % Seg Neutrophils # POC ABG pH POC ABG pCO2 Sodium Potassium Chloride Carbon Dioxide BUN Creatinine Glucose POC Glucose 223 H 229 H 218 H Lactic Acid Calcium Total Creatine Kinase Troponin T Albumin Triglycerides HDL Cholesterol 01/30/19 01/30/19 01/30/19 07:16 10:26 14:24 WBC RBC Hgb Hct MCV MCH MCHC RDW Lymph % (Auto) [place] % (Auto) Lymph # [place] # Baso # Seg Neutrophils % Seg Neuts % (Manual) Nucleated RBC % Seg Neutrophils # POC ABG pH POC ABG pCO2 Sodium 155 H D Potassium 3.2 L Chloride 118.4 H Carbon Dioxide BUN 40 H Creatinine Glucose 246 H POC Glucose 257 H 240 H Lactic Acid Calcium 8.3 L Total Creatine Kinase Troponin T Albumin Triglycerides HDL Cholesterol 01/30/19 01/30/19 01/30/19 18:30 20:44 23:38 WBC RBC Hgb Hct MCV MCH MCHC RDW Lymph % (Auto) [place] % (Auto) Lymph # [place] # Baso # Seg Neutrophils % Seg Neuts % (Manual) Nucleated RBC % Seg Neutrophils # POC ABG pH POC ABG pCO2 Sodium Potassium Chloride Carbon Dioxide BUN Creatinine Glucose POC Glucose 327 H 300 H 279 H Lactic Acid Calcium Total Creatine Kinase Troponin T Albumin Triglycerides HDL Cholesterol 01/31/19 01/31/19 01/31/19 01:57 04:42 04:42 WBC RBC Hgb 10.1 L Hct 31.7 L MCV 79 L MCH 25 L MCHC RDW 17.4 H Lymph % (Auto) [place] % (Auto) Lymph # [place] # Baso # Seg Neutrophils % Seg Neuts % (Manual) 75.0 H Nucleated RBC % 2.0 H Seg Neutrophils # POC ABG pH POC ABG pCO2 Sodium 147 H D Potassium 3.2 L Chloride 110.0 H Carbon Dioxide BUN 28 H Creatinine Glucose 261 H POC Glucose 270 H Lactic Acid Calcium 7.8 L Total Creatine Kinase Troponin T Albumin Triglycerides HDL Cholesterol 01/31/19 01/31/19 05:10 08:46 WBC RBC Hgb Hct MCV MCH MCHC RDW Lymph % (Auto) [place] % (Auto) Lymph # [place] # Baso # Seg Neutrophils % Seg Neuts % (Manual) Nucleated RBC % Seg Neutrophils # POC ABG pH POC ABG pCO2 Sodium Potassium Chloride Carbon Dioxide BUN Creatinine Glucose POC Glucose 239 H 242 H Lactic Acid Calcium Total Creatine Kinase Troponin T Albumin Triglycerides HDL Cholesterol Allied health notes reviewed: nursing
[2019-01-31] MEDS: KCL 10 MEQ in D5W 1,000 ML IV SCH (16:41)
[2019-01-31] MEDS: LANTUS SUB-Q SCH (21:30)
[2019-02-01] MEDS: HumaLOG SUB-Q SCH ×6 (03:24→23:06)
[2019-02-01] MEDS: KCL 10 MEQ in D5W 1,000 ML IV SCH (03:34)
[2019-02-01 04:23] LABS: Hematocrit 31.4 % (35.5-45.6); Hemoglobin 10.2 gm/dl (11.8-15.2); Mean Corpuscular HGB Conc 32 % (32-34); Mean Corpuscular Volume 78 fl (84-94); Red Blood Count 4.02 M/mm3 (3.65-5.03); Red Cell Distribution Width 16.9 % (13.2-15.2)
[2019-02-01 04:51] LABS: Platelet Count 178 K/mm3 (140-440)
[2019-02-01 05:01] LABS: BUN/Creatinine Ratio 37; Blood Urea Nitrogen 26 mg/dL (9-20); Calcium 8.3 mg/dL (8.4-10.2); Hemolysis Index 77
[2019-02-01 05:27] LABS: Anisocytosis 1+; Band Neutrophils # (Manual) 0.1 K/mm3; Basophils % (Manual) 0 % (0.0-1.8); Hypochromasia 1+; Total Cells Counted 100
[2019-02-01] MEDS: HEPARIN SUB-Q SCH ×2 (09:26→22:53)
[2019-02-01] MEDS: SODIUM CHLORIDE FLUSH SYRINGE 10 ML IV SCH ×2 (09:44→23:12)
--- NOTE | 2019-02-01 10:12 | Progress Note ---
Assessment and Plan Impression * Acute kidney injury * Hyperkalemia * Hypernatremia * History of basal ganglion hemorrhage * History of BPH * Diabetes Recommendations * Patient's renal function has improved * Patient is currently nonoliguric. Condom catheter in place. * Hyponatremia is improving. Continue hypotonic IV fluid * Continue free water through feeding tube * Avoid nephrotoxins * Serum potassium is now normal Subjective Date of service: 02/01/19 Principal diagnosis: MYRTLE/Hypernatremia Interval history: Patient is currently lethargic. Not answering any questions. IV fluid infusing Objective - Vital Signs Vital signs: Vital Signs - 12hr 01/31/19 02/01/19 02/01/19 23:32 04:20 08:44 Temperature 99.2 F 98.5 F Pulse Rate 98 H 100 H 103 H Respiratory 16 19 20 Rate Blood Pressure 144/95 160/92 154/95 O2 Sat by Pulse 100 100 100 Oximetry 02/01/19 08:45 Temperature 98.6 F Pulse Rate Respiratory Rate Blood Pressure O2 Sat by Pulse Oximetry - General Appearance General appearance: well-developed, well-nourished, appears stated age EENT: PERRL, mucous membranes moist Neck: no JVD, no thyromegaly, no carotid bruit, supple Respiratory: Present: Clear to Ascultation Cardiology: regular, normal heart rate, S1S2, no murmurs Gastrointestinal: normal, normoactive bowel sounds, other (condom catheter in place) Integumentary: no rash, other (no edema) - Lab 02/01/19 03:50 02/01/19 03:50 Most recent lab results Calcium 8.3 mg/dL (8.4-10.2) L 02/01/19 03:50 Magnesium 1.80 mg/dL (1.7-2.3) 02/01/19 03:50 Medications & Allergies - Medications Allergies/Adverse Reactions: Allergies No Known Allergies Allergy (Unverified 02/07/16 02:00) Home Medications: Home Medications Medication Instructions Recorded Confirmed Last Taken Type Citalopram Hydrobromide [celeXA] 20 mg PO DAILY 02/07/16 01/25/19 02/06/16 History Acetaminophen [Tylenol] 650 mg PO Q4HR PRN 01/25/19 01/25/19 Unknown History AtorvaSTATin [Lipitor] 40 mg PO QHS 01/25/19 01/25/19 Unknown History Insulin Lispro [HumaLOG VIAL] See Protocol SUB-Q BID 01/25/19 01/25/19 Unknown History LORazepam [Ativan] 0.5 mg PO Q8H PRN 01/25/19 01/25/19 Unknown History Latanoprost [Xalatan] 1 drop OU HS 01/25/19 01/25/19 Unknown History Lisinopril [Zestril] 20 mg PO QDAY 01/25/19 01/25/19 Unknown History Magnesium Oxide [Mag-Ox] 400 mg PO QDAY 01/25/19 01/25/19 Unknown History Quetiapine Fumarate [SEROquel] 50 mg PO TID 01/25/19 01/25/19 Unknown History Thiamine [Vitamin B-1] 100 mg PO AC 01/25/19 01/25/19 Unknown History Timolol 0.5% [Timoptic] 1 drop OU BID 01/25/19 01/25/19 Unknown History hydroCHLOROthiazide [HCTZ] 25 mg PO QDAY 01/25/19 01/25/19 Unknown History Active Medications: Generic Name Dose Route Start Last Admin Trade Name Freq PRN Reason Stop Dose Admin Lipase/Protease/Amylase 1 each 01/26/19 11:47 Pancreaze 10,500 Unit FEEDTUBE PRN PRN For Clogged Feeding Tube Heparin Sodium (Porcine) 5,000 unit 01/25/19 22:00 02/01/19 09:26 Heparin SUB-Q 5,000 unit Q12HR NIKOLAS Administration Dextrose 1,000 mls @ 125 mls/hr 01/30/19 14:00 01/31/19 06:05 D5w IV 125 mls/hr DIRECT NIKOLAS Administration Potassium Chloride 10 meq/ 1,005 mls @ 100 mls/hr 01/31/19 16:00 02/01/19 03:34 Dextrose IV 02/01/19 15:59 100 mls/hr DIRECT NIKOLAS Administration Insulin Glargine 45 units 01/29/19 22:00 01/31/19 21:30 Lantus SUB-Q 45 units QHS NIKOLAS Administration Insulin Human Lispro 0 unit 01/25/19 23:15 02/01/19 05:59 Humalog SUB-Q 3 unit Q4HR NIKOLAS Administration Protocol Simple Syrup 15 ml 01/26/19 11:47 Simple Syrup FEEDTUBE PRN PRN Hypoglycemia Simple Syrup 30 ml 01/26/19 11:47 Simple Syrup FEEDTUBE PRN PRN Hypoglycemia Sodium Bicarbonate 325 mg 01/26/19 11:47 Sodium Bicarbonate FEEDTUBE PRN PRN For Clogged Feeding Tube Sodium Chloride 10 ml 01/25/19 22:00 02/01/19 09:44 Sodium Chloride Flush Syringe 10 Ml IV 10 ml BID NIKOLAS Administration Sodium Chloride 10 ml 01/25/19 17:46 Sodium Chloride Flush Syringe 10 Ml IV PRN PRN LINE FLUSH
[2019-02-01] MEDS ORDERED: NACL 0.45% 1000 ML 1,000 ML IV SCH (17:00)
--- NOTE | 2019-02-01 17:28 | Progress Note ---
Assessment and Plan - Patient Problems (1) MYRTLE (acute kidney injury) Current Visit: Yes Status: Acute Plan to address problem: Patient renal function continues to respond to IV volume replacement. As responded well to IV volume replacement. Creatinine has come down from 5.7 to currently 1.2. Improvement of his renal function is not consistent with improvement of his cognition.. I think may benefit from MRI of brain further neurologic workup. (2) Acute hypernatremia Current Visit: Yes Status: Acute Plan to address problem: Continues to improve sodium 146. (3) Acute metabolic encephalopathy Current Visit: Yes Status: Acute Plan to address problem: Metabolic encephalopathy most likely multifactorial. 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 Maybe the dehydration has caused old CVA symptoms to recur. The note states patient seems to be improving however at this time appears heart because this is my first time seeing him. Patient still remains significantly lethargic. (4) Altered mental status Current Visit: Yes Status: Acute Plan to address problem: No clear etiology suspect underlying CVA. (5) HLD (hyperlipidemia) Current Visit: Yes Status: Chronic Qualifiers: Hyperlipidemia type: mixed hyperlipidemia Qualified Code(s): E78.2 - Mixed hyperlipidemia Plan to address problem: Statin follow LDL. Goal LDL less than 70. (6) HTN (hypertension) Current Visit: Yes Status: Chronic Qualifiers: Hypertension type: essential hypertension Qualified Code(s): I10 - Essential (primary) hypertension Plan to address problem: Currently uncontrolled. Patient not swallowing still has NG tube in place. We'll add hydralazine 10 mg IV every 8. Patient able to swallow or decision is made about his feedings were changed to by mouth. (7) IDDM (insulin dependent diabetes mellitus) Current Visit: Yes Status: Chronic Plan to address problem: Remains suboptimal. We'll increase Lantus. History Interval history: Patient remains encephalopathic however somewhat improved since Friday. Hospital course complicated by uncontrolled hypertension. Hospitalist Physical - Constitutional Vitals: Temp Pulse Resp BP Pulse Ox 97.9 F 101 H 20 154/103 100 02/01/19 17:08 02/01/19 17:06 02/01/19 17:06 02/01/19 17:06 02/01/19 17:06 General appearance: Present: no acute distress, well-nourished - EENT Eyes: Present: PERRL - Respiratory Respiratory effort: normal Respiratory: bilateral: diminished, rhonchi (few at bases) - Cardiovascular Rhythm: regular Heart Sounds: Present: S1 & S2 - Extremities Extremities: no ischemia, pulses intact, normal temperature, normal color Extremity abnormal: edema Peripheral Pulses: within normal limits - Abdominal General gastrointestinal: soft, non-tender, non-distended, normal bowel sounds, no hepatomegaly, no splenomegaly, no mass, no hernia - Integumentary Integumentary: Present: clear, warm, dry - Neurologic Neurologic: focal deficits, other (encephalopathic focal deficits.) Results - Labs CBC & Chem 7: 02/01/19 03:50 02/01/19 03:50 Labs: Laboratory Last Values WBC 8.2 K/mm3 (4.5-11.0) 02/01/19 03:50 RBC 4.02 M/mm3 (3.65-5.03) 02/01/19 03:50 Hgb 10.2 gm/dl (11.8-15.2) L 02/01/19 03:50 Hct 31.4 % (35.5-45.6) L 02/01/19 03:50 MCV 78 fl (84-94) L 02/01/19 03:50 MCH 25 pg (28-32) L 02/01/19 03:50 MCHC 32 % (32-34) 02/01/19 03:50 RDW 16.9 % (13.2-15.2) H 02/01/19 03:50 Plt Count 178 K/mm3 (140-440) 02/01/19 03:50 Lymph % (Auto) 19.1 % (13.4-35.0) 01/28/19 06:04 [place] % (Auto) 8.7 % (0.0-7.3) H 01/28/19 06:04 Eos % (Auto) 3.1 % (0.0-4.3) 01/28/19 06:04 Baso % (Auto) 0.3 % (0.0-1.8) 01/28/19 06:04 Lymph # 1.3 K/mm3 (1.2-5.4) 01/28/19 06:04 Jenkins # 0.6 K/mm3 (0.0-0.8) 01/28/19 06:04 Eos # 0.2 K/mm3 (0.0-0.4) 01/28/19 06:04 Baso # 0.0 K/mm3 (0.0-0.1) 01/28/19 06:04 Add Manual Diff Complete 02/01/19 03:50 Total Counted 100 02/01/19 03:50 Seg Neutrophils % 68.8 % (40.0-70.0) 01/28/19 06:04 Seg Neuts % (Manual) 78.0 % (40.0-70.0) H 02/01/19 03:50 Band Neutrophils % 1.0 % 02/01/19 03:50 Lymphocytes % (Manual) 16.0 % (13.4-35.0) 02/01/19 03:50 Reactive Lymphs % (Man) 0 % 02/01/19 03:50 Monocytes % (Manual) 1.0 % (0.0-7.3) 02/01/19 03:50 Eosinophils % (Manual) 4.0 % (0.0-4.3) 02/01/19 03:50 Basophils % (Manual) 0 % (0.0-1.8) 02/01/19 03:50 Metamyelocytes % 0 % 02/01/19 03:50 Myelocytes % 0 % 02/01/19 03:50 Promyelocytes % 0 % 02/01/19 03:50 Blast Cells % 0 % 02/01/19 03:50 Nucleated RBC % Not Reportable 02/01/19 03:50 Seg Neutrophils # 4.8 K/mm3 (1.8-7.7) 01/28/19 06:04 Seg Neutrophils # Man 6.4 K/mm3 (1.8-7.7) 02/01/19 03:50 Band Neutrophils # 0.1 K/mm3 02/01/19 03:50 Lymphocytes # (Manual) 1.3 K/mm3 (1.2-5.4) 02/01/19 03:50 Abs React Lymphs (Man) 0.0 K/mm3 02/01/19 03:50 Monocytes # (Manual) 0.1 K/mm3 (0.0-0.8) 02/01/19 03:50 Eosinophils # (Manual) 0.3 K/mm3 (0.0-0.4) 02/01/19 03:50 Basophils # (Manual) 0.0 K/mm3 (0.0-0.1) 02/01/19 03:50 Metamyelocytes # 0.0 K/mm3 02/01/19 03:50 Myelocytes # 0.0 K/mm3 02/01/19 03:50 Promyelocytes # 0.0 K/mm3 02/01/19 03:50 Blast Cells # 0.0 K/mm3 02/01/19 03:50 WBC Morphology Not Reportable 02/01/19 03:50 Hypersegmented Neuts Not Reportable 02/01/19 03:50 Hyposegmented Neuts Not Reportable 02/01/19 03:50 Hypogranular Neuts Not Reportable 02/01/19 03:50 Smudge Cells Not Reportable 02/01/19 03:50 Toxic Granulation Not Reportable 02/01/19 03:50 Toxic Vacuolation Not Reportable 02/01/19 03:50 Dohle Bodies Not Reportable 02/01/19 03:50 Pelger-Huet Anomaly Not Reportable 02/01/19 03:50 Benita Rods Not Reportable 02/01/19 03:50 Platelet Estimate Appears normal 02/01/19 03:50 Clumped Platelets Not Reportable 02/01/19 03:50 Plt Clumps, EDTA Not Reportable 02/01/19 03:50 Large Platelets Not Reportable 02/01/19 03:50 Giant Platelets Not Reportable 02/01/19 03:50 Platelet Satelliting Not Reportable 02/01/19 03:50 Plt Morphology Comment Not Reportable 02/01/19 03:50 RBC Morphology Not Reportable 02/01/19 03:50 Dimorphic RBCs Not Reportable 02/01/19 03:50 Polychromasia Not Reportable 02/01/19 03:50 Hypochromasia 1+ 02/01/19 03:50 Poikilocytosis Not Reportable 02/01/19 03:50 Anisocytosis 1+ 02/01/19 03:50 Microcytosis Not Reportable 02/01/19 03:50 Macrocytosis Not Reportable 02/01/19 03:50 Spherocytes Not Reportable 02/01/19 03:50 Pappenheimer Bodies Not Reportable 02/01/19 03:50 Sickle Cells Not Reportable 02/01/19 03:50 Target Cells Not Reportable 02/01/19 03:50 Tear Drop Cells Not Reportable 02/01/19 03:50 Ovalocytes Not Reportable 02/01/19 03:50 Helmet Cells Not Reportable 02/01/19 03:50 [place] Bodies Not Reportable 02/01/19 03:50 [place] Rings Not Reportable 02/01/19 03:50 [employer] [place] [employer] Cells Not Reportable 02/01/19 03:50 Bite Cells Not Reportable 02/01/19 03:50 Crenated Cell Not Reportable 02/01/19 03:50 Elliptocytes Not Reportable 02/01/19 03:50 Acanthocytes (Spur) Not Reportable 02/01/19 03:50 Rouleaux Not Reportable 02/01/19 03:50 Hemoglobin C Crystals Not Reportable 02/01/19 03:50 Schistocytes Not Reportable 02/01/19 03:50 Malaria parasites Not Reportable 02/01/19 03:50 Rolan Bodies Not Reportable 02/01/19 03:50 Hem Pathologist Commnt No 02/01/19 03:50 POC ABG pH 7.479 (7.35-7.45) H 01/28/19 19:00 POC ABG pCO2 32.3 (35-45) L 01/28/19 19:00 POC ABG pO2 93 (80-105) 01/28/19 19:00 POC ABG HCO3 24.0 (22-26 mml/L) 01/28/19 19:00 POC ABG Total CO2 25 (23-27mmol/L) 01/28/19 19:00 POC ABG O2 Sat 98 01/28/19 19:00 POC ABG Base Excess 0 ((-2) - (+3)mmol/L) 01/28/19 19:00 FiO2 21 % 01/28/19 19:00 Sodium 146 mmol/L (137-145) H 02/01/19 03:50 Potassium 4.4 mmol/L (3.6-5.0) D 02/01/19 03:50 Chloride 110.9 mmol/L (98-107) H 02/01/19 03:50 Carbon Dioxide 21 mmol/L (22-30) L 02/01/19 03:50 Anion Gap 19 mmol/L 02/01/19 03:50 BUN 26 mg/dL (9-20) H 02/01/19 03:50 Creatinine 0.7 mg/dL (0.8-1.5) L 02/01/19 03:50 Estimated GFR > 60 ml/min 02/01/19 03:50 BUN/Creatinine Ratio 37 % 02/01/19 03:50 Glucose 240 mg/dL (75-100) H 02/01/19 03:50 POC Glucose 193 (70-105) H 02/01/19 17:25 Lactic Acid 1.40 mmol/L (0.7-2.0) 01/25/19 18:50 Calcium 8.3 mg/dL (8.4-10.2) L 02/01/19 03:50 Magnesium 1.80 mg/dL (1.7-2.3) 02/01/19 03:50 Total Bilirubin 0.20 mg/dL (0.1-1.2) 01/26/19 04:25 AST 12 units/L (5-40) 01/26/19 04:25 ALT 17 units/L (7-56) 01/26/19 04:25 Alkaline Phosphatase 84 units/L (35-129) 01/26/19 04:25 Ammonia 41.0 umol/L (25-60) 01/31/19 13:26 Total Creatine Kinase 294 units/L (55-170) H 01/25/19 13:31 CK-MB (CK-2) 2.2 ng/mL (0.0-4.0) 01/25/19 13:31 CK-MB (CK-2) Rel Index 0.7 (0-4) 01/25/19 13:31 Troponin T 0.031 ng/mL (0.00-0.029) H D 01/26/19 04:25 Total Protein 6.4 g/dL (6.3-8.2) 01/26/19 04:25 Albumin 2.3 g/dL (3.9-5) L 01/26/19 04:25 Albumin/Globulin Ratio 0.6 % 01/26/19 04:25 Triglycerides 172 mg/dL (2-149) H 01/25/19 13:31 Cholesterol 148 mg/dL (50-199) 01/25/19 13:31 LDL Cholesterol Direct 82 mg/dL (50-130) 01/25/19 13:31 HDL Cholesterol 30 mg/dL (40-59) L 01/25/19 13:31 Cholesterol/HDL Ratio 4.93 % 01/25/19 13:31 TSH 4.020 mlU/mL (0.270-4.200) 01/25/19 13:31 Free T4 0.89 ng/dL (0.76-1.46) 01/25/19 13:31 Urine Color Yellow (Yellow) 01/25/19 15:00 Urine Turbidity Slightly-cloudy (Clear) 01/25/19 15:00 Urine pH 5.0 (5.0-7.0) 01/25/19 15:00 Ur Specific [place] 1.018 (1.003-1.030) 01/25/19 15:00 Urine Protein <15 mg/dl mg/dL (Negative) 01/25/19 15:00 Urine Glucose (UA) 50 mg/dL (Negative) 01/25/19 15:00 Urine Ketones Neg mg/dL (Negative) 01/25/19 15:00 Urine Blood Neg (Negative) 01/25/19 15:00 Urine Nitrite Neg (Negative) 01/25/19 15:00 Urine Bilirubin Neg (Negative) 01/25/19 15:00 Urine Urobilinogen 4.0 mg/dL (<2.0) 01/25/19 15:00 Ur Leukocyte Esterase Neg (Negative) 01/25/19 15:00 Urine WBC (Auto) 3.0 /HPF (0.0-6.0) 01/25/19 15:00 Urine RBC (Auto) 1.0 /HPF (0.0-6.0) 01/25/19 15:00 U Epithel Cells (Auto) < 1.0 /HPF (0-13.0) 01/25/19 15:00 Hyaline Casts 9 /LPF 01/25/19 15:00 Active Medications - Current Medications Current Medications: Generic Name Dose Route Start Last Admin Trade Name Freq PRN Reason Stop Dose Admin Lipase/Protease/Amylase 1 each 01/26/19 11:47 Pancreaze 10,500 Unit FEEDTUBE PRN PRN For Clogged Feeding Tube Heparin Sodium (Porcine) 5,000 unit 01/25/19 22:00 02/01/19 09:26 Heparin SUB-Q 5,000 unit Q12HR NIKOLAS Administration Hydralazine HCl 10 mg 02/01/19 18:00 Apresoline IV Q8HR [facility] Sodium Chloride 1,000 mls @ 75 mls/hr 02/01/19 17:00 Nacl 0.45% 1000 Ml IV DIRECT NIKOLAS Insulin Glargine 45 units 01/29/19 22:00 01/31/19 21:30 Lantus SUB-Q 45 units QHS NIKOLAS Administration Insulin Human Lispro 0 unit 01/25/19 23:15 02/01/19 14:55 Humalog SUB-Q 4 unit Q4HR [facility] Administration Protocol Simple Syrup 15 ml 01/26/19 11:47 Simple Syrup FEEDTUBE PRN PRN Hypoglycemia Simple Syrup 30 ml 01/26/19 11:47 Simple Syrup FEEDTUBE PRN PRN Hypoglycemia Sodium Bicarbonate 325 mg 01/26/19 11:47 Sodium Bicarbonate FEEDTUBE PRN PRN For Clogged Feeding Tube Sodium Chloride 10 ml 01/25/19 22:00 02/01/19 09:44 Sodium Chloride Flush Syringe 10 Ml IV 10 ml BID NIKOLAS Administration Sodium Chloride 10 ml 01/25/19 17:46 Sodium Chloride Flush Syringe 10 Ml IV PRN PRN LINE FLUSH Nutrition/Malnutrition Assess - Dietary Evaluation Nutrition/Malnutrition Findings: Nutrition Notes Start: 01/26/19 08:45 Freq: Status: Active Protocol: Document 01/28/19 10:22 TW (Rec: 01/28/19 10:25 TW [id number]) Co-Sign 01/28/19 10:22 LP Nutrition Notes Initial or Follow up Reassessment Current Diagnosis Hypertension Other Pertinent Diagnosis Acute renail failure, Hyperkalemia, AMS, Dehydration Current Diet Nepo 1.8 at 50 ml/hr Labs/Tests Na 159 BUN 75 K: 3.3 BG 310 Pertinent Medications Reviewed Height 5 ft 6 in Weight 74.9 kg [place] Body Weight (kg) 64.54 BMI 26.6 Subjective/Other Information Follow up for TF tolerance. Per RN, pt is tolerating TF well. Observed Nepro 1.8 running at goal rate (50 ml/hr ). Percent of energy/protein needs met: 100%/100% Burn Absent Trauma Absent #1 Nutrition Diagnosis Inadequate oral intake Diagnosis Progress(for reassessment Continues documentation) Is patient on ventilator? No Is Patient Ambulatory and/or Out of Bed No REE-([facility] [place]-confined to bed) [phone] Calculation Used for Recommendations [facility] Additional Notes PRO: 1.0-1.3 g/kg (75-98 g/day ) Fluid: 1500 mL or per MD Nutrition Intervention Nutrition Support: Nepro 1.8 at 50 mL/hr Flush 100 mL q 4 hr Kcal 2,160 Protein (gm) 97 Fat (gm) 115 Fluid (mL) 872 Goal #1 Continue to meet at least 75% harsh and pro needs via TF Anticipated Discharge Needs: Unable to determine at this time Follow-Up By: 02/04/19 Additional Comments F/u: TF tolerance
[2019-02-01] MEDS: APRESOLINE IV SCH ×2 (18:27→22:53)
--- NOTE | 2019-02-01 19:11 | Progress Note ---
Subjective Date of service: 02/01/19 Principal diagnosis: MYRTLE/Hypernatremia Interval history: agree with assessment about cognitive status plan MRI and check EEG suspect encephalopathy further w/u Objective - Vital Sign Vital Signs - 12hr 02/01/19 02/01/19 02/01/19 08:44 08:45 10:00 Temperature 98.6 F Pulse Rate 103 H Pulse Rate [ 102 H Left Dorsalis Pedis] Pulse Rate [ 100 H Right Dorsalis Pedis] Respiratory 20 Rate Blood Pressure 154/95 O2 Sat by Pulse 100 Oximetry 02/01/19 02/01/19 02/01/19 12:00 12:01 17:06 Temperature 98.6 F Pulse Rate 101 H 101 H Pulse Rate [ Left Dorsalis Pedis] Pulse Rate [ Right Dorsalis Pedis] Respiratory 20 20 Rate Blood Pressure 149/90 154/103 O2 Sat by Pulse 100 100 Oximetry 02/01/19 02/01/19 17:08 18:27 Temperature 97.9 F Pulse Rate 101 H Pulse Rate [ Left Dorsalis Pedis] Pulse Rate [ Right Dorsalis Pedis] Respiratory Rate Blood Pressure 154/103 O2 Sat by Pulse Oximetry - Laboratory Findings CBC and BMP: 02/01/19 03:50 02/01/19 03:50 Abnormal Lab Findings: Abnormal Labs 01/25/19 01/25/19 01/25/19 13:31 13:31 13:31 WBC 12.0 H RBC 6.00 H Hgb Hct 47.7 H MCV 80 L MCH 25 L MCHC 31 L RDW 18.1 H Lymph % (Auto) 10.4 L [place] % (Auto) 9.3 H Lymph # [place] # 1.1 H Baso # Seg Neutrophils % 78.5 H Seg Neuts % (Manual) Nucleated RBC % Seg Neutrophils # 9.5 H POC ABG pH POC ABG pCO2 Sodium 159 H Potassium 6.0 H Chloride 119.0 H Carbon Dioxide BUN 185 H Creatinine 5.7 H D Glucose 433 H POC Glucose Lactic Acid 2.60 H* Calcium Total Creatine Kinase 294 H Troponin T 0.080 H Albumin 2.6 L Triglycerides 172 H HDL Cholesterol 30 L 01/25/19 01/25/19 01/25/19 16:03 16:03 17:11 WBC RBC Hgb Hct MCV MCH MCHC RDW Lymph % (Auto) [place] % (Auto) Lymph # [place] # Baso # Seg Neutrophils % Seg Neuts % (Manual) Nucleated RBC % Seg Neutrophils # POC ABG pH POC ABG pCO2 Sodium Potassium Chloride Carbon Dioxide BUN Creatinine Glucose POC Glucose 346 H Lactic Acid 2.20 H* 2.30 H* Calcium Total Creatine Kinase Troponin T Albumin Triglycerides HDL Cholesterol 01/25/19 01/25/19 01/26/19 18:50 23:08 00:22 WBC RBC Hgb Hct MCV MCH MCHC RDW Lymph % (Auto) [place] % (Auto) Lymph # [place] # Baso # Seg Neutrophils % Seg Neuts % (Manual) Nucleated RBC % Seg Neutrophils # POC ABG pH POC ABG pCO2 Sodium 162 H* Potassium Chloride 125.2 H Carbon Dioxide BUN 180 H Creatinine 5.1 H Glucose 438 H POC Glucose 480 H Lactic Acid Calcium Total Creatine Kinase Troponin T 0.045 H D Albumin Triglycerides HDL Cholesterol 01/26/19 01/26/19 01/26/19 02:16 04:25 04:25 WBC RBC 5.21 H Hgb Hct MCV 80 L MCH 25 L MCHC 31 L RDW 18.0 H Lymph % (Auto) 8.2 L [place] % (Auto) 7.6 H Lymph # 0.8 L [place] # Baso # 0.2 H Seg Neutrophils % 81.6 H Seg Neuts % (Manual) Nucleated RBC % Seg Neutrophils # 8.3 H POC ABG pH POC ABG pCO2 Sodium 158 H Potassium Chloride 122.9 H Carbon Dioxide 21 L BUN 163 H Creatinine 3.9 H Glucose 465 H POC Glucose 462 H Lactic Acid Calcium 7.8 L Total Creatine Kinase Troponin T Albumin 2.3 L Triglycerides HDL Cholesterol 01/26/19 01/26/19 01/26/19 04:25 05:33 10:08 WBC RBC Hgb Hct MCV MCH MCHC RDW Lymph % (Auto) [place] % (Auto) Lymph # [place] # Baso # Seg Neutrophils % Seg Neuts % (Manual) Nucleated RBC % Seg Neutrophils # POC ABG pH POC ABG pCO2 Sodium 160 H Potassium Chloride 123.9 H Carbon Dioxide 19 L BUN 161 H Creatinine 3.9 H Glucose 468 H POC Glucose 309 H 316 H Lactic Acid Calcium 7.8 L Total Creatine Kinase Troponin T 0.031 H D Albumin Triglycerides HDL Cholesterol 01/26/19 01/26/19 01/27/19 14:30 16:11 03:18 WBC RBC Hgb Hct MCV MCH MCHC RDW Lymph % (Auto) [place] % (Auto) Lymph # [place] # Baso # Seg Neutrophils % Seg Neuts % (Manual) Nucleated RBC % Seg Neutrophils # POC ABG pH POC ABG pCO2 Sodium 160 H Potassium 3.4 L D Chloride 124.8 H Carbon Dioxide BUN 141 H Creatinine 2.9 H Glucose 126 H POC Glucose 167 H 184 H Lactic Acid Calcium 8.3 L Total Creatine Kinase Troponin T Albumin Triglycerides HDL Cholesterol 01/27/19 01/27/19 01/27/19 06:23 06:33 06:33 WBC RBC Hgb Hct MCV 79 L MCH 25 L MCHC 31 L RDW 17.7 H Lymph % (Auto) [place] % (Auto) 8.1 H Lymph # [place] # Baso # Seg Neutrophils % 71.1 H Seg Neuts % (Manual) Nucleated RBC % Seg Neutrophils # POC ABG pH POC ABG pCO2 Sodium 157 H Potassium Chloride 121.4 H Carbon Dioxide BUN 117 H Creatinine 1.9 H Glucose 200 H POC Glucose 219 H Lactic Acid Calcium 8.3 L Total Creatine Kinase Troponin T Albumin Triglycerides HDL Cholesterol 01/27/19 01/27/19 01/27/19 11:13 12:46 16:10 WBC RBC Hgb Hct MCV MCH MCHC RDW Lymph % (Auto) [place] % (Auto) Lymph # [place] # Baso # Seg Neutrophils % Seg Neuts % (Manual) Nucleated RBC % Seg Neutrophils # POC ABG pH POC ABG pCO2 Sodium Potassium Chloride Carbon Dioxide BUN Creatinine Glucose POC Glucose 200 H 205 H 230 H Lactic Acid Calcium Total Creatine Kinase Troponin T Albumin Triglycerides HDL Cholesterol 01/28/19 01/28/19 01/28/19 00:09 06:04 06:04 WBC RBC Hgb 11.5 L Hct MCV 77 L MCH 25 L MCHC RDW 17.4 H Lymph % (Auto) [place] % (Auto) 8.7 H Lymph # [place] # Baso # Seg Neutrophils % Seg Neuts % (Manual) Nucleated RBC % Seg Neutrophils # POC ABG pH POC ABG pCO2 Sodium 159 H Potassium 3.3 L Chloride 123.1 H Carbon Dioxide BUN 75 H Creatinine Glucose 310 H POC Glucose 177 H Lactic Acid Calcium Total Creatine Kinase Troponin T Albumin Triglycerides HDL Cholesterol 01/28/19 01/28/19 01/28/19 06:42 12:28 15:10 WBC RBC Hgb Hct MCV MCH MCHC RDW Lymph % (Auto) [place] % (Auto) Lymph # [place] # Baso # Seg Neutrophils % Seg Neuts % (Manual) Nucleated RBC % Seg Neutrophils # POC ABG pH POC ABG pCO2 Sodium Potassium Chloride Carbon Dioxide BUN Creatinine Glucose POC Glucose 384 H 280 H 282 H Lactic Acid Calcium Total Creatine Kinase Troponin T Albumin Triglycerides HDL Cholesterol 01/28/19 01/28/19 01/28/19 18:54 19:00 21:44 WBC RBC Hgb Hct MCV MCH MCHC RDW Lymph % (Auto) [place] % (Auto) Lymph # [place] # Baso # Seg Neutrophils % Seg Neuts % (Manual) Nucleated RBC % Seg Neutrophils # POC ABG pH 7.479 H POC ABG pCO2 32.3 L Sodium Potassium Chloride Carbon Dioxide BUN Creatinine Glucose POC Glucose 189 H 179 H Lactic Acid Calcium Total Creatine Kinase Troponin T Albumin Triglycerides HDL Cholesterol 01/29/19 01/29/19 01/29/19 01:48 04:37 05:38 WBC RBC Hgb Hct MCV MCH MCHC RDW Lymph % (Auto) [place] % (Auto) Lymph # [place] # Baso # Seg Neutrophils % Seg Neuts % (Manual) Nucleated RBC % Seg Neutrophils # POC ABG pH POC ABG pCO2 Sodium 164 H* Potassium 3.5 L Chloride 128.9 H Carbon Dioxide BUN 54 H Creatinine Glucose 271 H POC Glucose 238 H 248 H Lactic Acid Calcium Total Creatine Kinase Troponin T Albumin Triglycerides HDL Cholesterol 01/29/19 01/29/19 01/29/19 10:26 13:19 17:57 WBC RBC Hgb Hct MCV MCH MCHC RDW Lymph % (Auto) [place] % (Auto) Lymph # [place] # Baso # Seg Neutrophils % Seg Neuts % (Manual) Nucleated RBC % Seg Neutrophils # POC ABG pH POC ABG pCO2 Sodium Potassium Chloride Carbon Dioxide BUN Creatinine Glucose POC Glucose 288 H 301 H 242 H Lactic Acid Calcium Total Creatine Kinase Troponin T Albumin Triglycerides HDL Cholesterol 01/29/19 01/30/19 01/30/19 20:25 01:51 05:23 WBC RBC Hgb Hct MCV MCH MCHC RDW Lymph % (Auto) [place] % (Auto) Lymph # [place] # Baso # Seg Neutrophils % Seg Neuts % (Manual) Nucleated RBC % Seg Neutrophils # POC ABG pH POC ABG pCO2 Sodium Potassium Chloride Carbon Dioxide BUN Creatinine Glucose POC Glucose 223 H 229 H 218 H Lactic Acid Calcium Total Creatine Kinase Troponin T Albumin Triglycerides HDL Cholesterol 01/30/19 01/30/19 01/30/19 07:16 10:26 14:24 WBC RBC Hgb Hct MCV MCH MCHC RDW Lymph % (Auto) [place] % (Auto) Lymph # [place] # Baso # Seg Neutrophils % Seg Neuts % (Manual) Nucleated RBC % Seg Neutrophils # POC ABG pH POC ABG pCO2 Sodium 155 H D Potassium 3.2 L Chloride 118.4 H Carbon Dioxide BUN 40 H Creatinine Glucose 246 H POC Glucose 257 H 240 H Lactic Acid Calcium 8.3 L Total Creatine Kinase Troponin T Albumin Triglycerides HDL Cholesterol 01/30/19 01/30/19 01/30/19 18:30 20:44 23:38 WBC RBC Hgb Hct MCV MCH MCHC RDW Lymph % (Auto) [place] % (Auto) Lymph # [place] # Baso # Seg Neutrophils % Seg Neuts % (Manual) Nucleated RBC % Seg Neutrophils # POC ABG pH POC ABG pCO2 Sodium Potassium Chloride Carbon Dioxide BUN Creatinine Glucose POC Glucose 327 H 300 H 279 H Lactic Acid Calcium Total Creatine Kinase Troponin T Albumin Triglycerides HDL Cholesterol 01/31/19 01/31/19 01/31/19 01:57 04:42 04:42 WBC RBC Hgb 10.1 L Hct 31.7 L MCV 79 L MCH 25 L MCHC RDW 17.4 H Lymph % (Auto) [place] % (Auto) Lymph # [place] # Baso # Seg Neutrophils % Seg Neuts % (Manual) 75.0 H Nucleated RBC % 2.0 H Seg Neutrophils # POC ABG pH POC ABG pCO2 Sodium 147 H D Potassium 3.2 L Chloride 110.0 H Carbon Dioxide BUN 28 H Creatinine Glucose 261 H POC Glucose 270 H Lactic Acid Calcium 7.8 L Total Creatine Kinase Troponin T Albumin Triglycerides HDL Cholesterol 01/31/19 01/31/19 01/31/19 05:10 08:46 17:10 WBC RBC Hgb Hct MCV MCH MCHC RDW Lymph % (Auto) [place] % (Auto) Lymph # [place] # Baso # Seg Neutrophils % Seg Neuts % (Manual) Nucleated RBC % Seg Neutrophils # POC ABG pH POC ABG pCO2 Sodium Potassium Chloride Carbon Dioxide BUN Creatinine Glucose POC Glucose 239 H 242 H 298 H Lactic Acid Calcium Total Creatine Kinase Troponin T Albumin Triglycerides HDL Cholesterol 01/31/19 02/01/19 02/01/19 21:10 02:17 03:50 WBC RBC Hgb Hct MCV MCH MCHC RDW Lymph % (Auto) [place] % (Auto) Lymph # [place] # Baso # Seg Neutrophils % Seg Neuts % (Manual) Nucleated RBC % Seg Neutrophils # POC ABG pH POC ABG pCO2 Sodium 146 H Potassium Chloride 110.9 H Carbon Dioxide 21 L BUN 26 H Creatinine 0.7 L Glucose 240 H POC Glucose 304 H 240 H Lactic Acid Calcium 8.3 L Total Creatine Kinase Troponin T Albumin Triglycerides HDL Cholesterol 02/01/19 02/01/19 02/01/19 03:50 05:35 10:11 WBC RBC Hgb 10.2 L Hct 31.4 L MCV 78 L MCH 25 L MCHC RDW 16.9 H Lymph % (Auto) [place] % (Auto) Lymph # [place] # Baso # Seg Neutrophils % Seg Neuts % (Manual) 78.0 H Nucleated RBC % Seg Neutrophils # POC ABG pH POC ABG pCO2 Sodium Potassium Chloride Carbon Dioxide BUN Creatinine Glucose POC Glucose 208 H 186 H Lactic Acid Calcium Total Creatine Kinase Troponin T Albumin Triglycerides HDL Cholesterol 02/01/19 02/01/19 14:35 17:25 WBC RBC Hgb Hct MCV MCH MCHC RDW Lymph % (Auto) [place] % (Auto) Lymph # [place] # Baso # Seg Neutrophils % Seg Neuts % (Manual) Nucleated RBC % Seg Neutrophils # POC ABG pH POC ABG pCO2 Sodium Potassium Chloride Carbon Dioxide BUN Creatinine Glucose POC Glucose 222 H 193 H Lactic Acid Calcium Total Creatine Kinase Troponin T Albumin Triglycerides HDL Cholesterol
--- NOTE | 2019-02-01 19:19 | Progress Note ---
Assessment and Plan Patient awake and resting on 2 litres litres O2. O2 saturation 100%.Patient not following commands.Patient not oriented.No acute respiratory distress. - Patient Problems (1) Metabolic acidosis with increased anion gap and reduced excretion of inorganic acids Current Visit: Yes Status: Acute Plan to address problem: ABGs showed improvement in Acidosis. (2) IDDM (insulin dependent diabetes mellitus) Current Visit: Yes Status: Chronic Plan to address problem: Management as per primary care. (3) HTN (hypertension) Current Visit: Yes Status: Chronic Qualifiers: Hypertension type: essential hypertension Qualified Code(s): I10 - Essential (primary) hypertension Plan to address problem: Management as per primary care. (4) Acute metabolic encephalopathy Current Visit: Yes Status: Acute Plan to address problem: Management as per primary care. (5) MYRTLE (acute kidney injury) Current Visit: Yes Status: Acute Plan to address problem: Management as per Nephrology. Subjective Date of service: 02/01/19 Principal diagnosis: MYRTLE/Hypernatremia Interval history: Patient awake and resting on 2 litres O2. O2 saturation 100%.Patient not following commands.Patient not oriented.No acute respiratory distress. Objective Vital Signs - 12hr 02/01/19 02/01/19 02/01/19 08:44 08:45 10:00 Temperature 98.6 F Pulse Rate 103 H Pulse Rate [ 102 H Left Dorsalis Pedis] Pulse Rate [ 100 H Right Dorsalis Pedis] Respiratory 20 Rate Blood Pressure 154/95 O2 Sat by Pulse 100 Oximetry 02/01/19 02/01/19 02/01/19 12:00 12:01 17:06 Temperature 98.6 F Pulse Rate 101 H 101 H Pulse Rate [ Left Dorsalis Pedis] Pulse Rate [ Right Dorsalis Pedis] Respiratory 20 20 Rate Blood Pressure 149/90 154/103 O2 Sat by Pulse 100 100 Oximetry 02/01/19 02/01/19 17:08 18:27 Temperature 97.9 F Pulse Rate 101 H Pulse Rate [ Left Dorsalis Pedis] Pulse Rate [ Right Dorsalis Pedis] Respiratory Rate Blood Pressure 154/103 O2 Sat by Pulse Oximetry Constitutional: no acute distress, other (Awake, not following commands, not oriented.) Eyes: non-icteric ENT: oropharynx moist Neck: supple, no lymphadenopathy, no JVD, other (no thyromegaly) Effort: normal Ascultation: Bilateral: diminished breath sounds Percussion: Bilateral: not dull Cardiovascular: regular rate and rhythm Gastrointestinal: normoactive bowel sounds, soft, non-tender, non-distended Integumentary: normal Extremities: no cyanosis, no edema, pulses normal, no ischemia or petechiae Neurologic: non-focal exam, pupils equal and round, other (hemiparesis, more awake and alert) Psychiatric: other (Can Not asses due to his mental status.) CBC and BMP: 02/01/19 03:50 02/01/19 03:50 ABG, PT/INR, D-dimer: ABG POC ABG pH 7.479 (7.35-7.45) H 01/28/19 19:00 POC ABG pCO2 32.3 (35-45) L 01/28/19 19:00 POC ABG pO2 93 (80-105) 01/28/19 19:00 POC ABG HCO3 24.0 (22-26 mml/L) 01/28/19 19:00 POC ABG Total CO2 25 (23-27mmol/L) 01/28/19 19:00 POC ABG O2 Sat 98 01/28/19 19:00 Abnormal lab findings: Abnormal Labs 01/25/19 01/25/19 01/25/19 13:31 13:31 13:31 WBC 12.0 H RBC 6.00 H Hgb Hct 47.7 H MCV 80 L MCH 25 L MCHC 31 L RDW 18.1 H Lymph % (Auto) 10.4 L [place] % (Auto) 9.3 H Lymph # [place]verse # 1.1 H Baso # Seg Neutrophils % 78.5 H Seg Neuts % (Manual) Nucleated RBC % Seg Neutrophils # 9.5 H POC ABG pH POC ABG pCO2 Sodium 159 H Potassium 6.0 H Chloride 119.0 H Carbon Dioxide BUN 185 H Creatinine 5.7 H D Glucose 433 H POC Glucose Lactic Acid 2.60 H* Calcium Total Creatine Kinase 294 H Troponin T 0.080 H Albumin 2.6 L Triglycerides 172 H HDL Cholesterol 30 L 01/25/19 01/25/19 01/25/19 16:03 16:03 17:11 WBC RBC Hgb Hct MCV MCH MCHC RDW Lymph % (Auto) [place] % (Auto) Lymph # [place] # Baso # Seg Neutrophils % Seg Neuts % (Manual) Nucleated RBC % Seg Neutrophils # POC ABG pH POC ABG pCO2 Sodium Potassium Chloride Carbon Dioxide BUN Creatinine Glucose POC Glucose 346 H Lactic Acid 2.20 H* 2.30 H* Calcium Total Creatine Kinase Troponin T Albumin Triglycerides HDL Cholesterol 01/25/19 01/25/19 01/26/19 18:50 23:08 00:22 WBC RBC Hgb Hct MCV MCH MCHC RDW Lymph % (Auto) [place] % (Auto) Lymph # [place] # Baso # Seg Neutrophils % Seg Neuts % (Manual) Nucleated RBC % Seg Neutrophils # POC ABG pH POC ABG pCO2 Sodium 162 H* Potassium Chloride 125.2 H Carbon Dioxide BUN 180 H Creatinine 5.1 H Glucose 438 H POC Glucose 480 H Lactic Acid Calcium Total Creatine Kinase Troponin T 0.045 H D Albumin Triglycerides HDL Cholesterol 01/26/19 01/26/19 01/26/19 02:16 04:25 04:25 WBC RBC 5.21 H Hgb Hct MCV 80 L MCH 25 L MCHC 31 L RDW 18.0 H Lymph % (Auto) 8.2 L [place] % (Auto) 7.6 H Lymph # 0.8 L [place] # Baso # 0.2 H Seg Neutrophils % 81.6 H Seg Neuts % (Manual) Nucleated RBC % Seg Neutrophils # 8.3 H POC ABG pH POC ABG pCO2 Sodium 158 H Potassium Chloride 122.9 H Carbon Dioxide 21 L BUN 163 H Creatinine 3.9 H Glucose 465 H POC Glucose 462 H Lactic Acid Calcium 7.8 L Total Creatine Kinase Troponin T Albumin 2.3 L Triglycerides HDL Cholesterol 01/26/19 01/26/19 01/26/19 04:25 05:33 10:08 WBC RBC Hgb Hct MCV MCH MCHC RDW Lymph % (Auto) [place] % (Auto) Lymph # [place] # Baso # Seg Neutrophils % Seg Neuts % (Manual) Nucleated RBC % Seg Neutrophils # POC ABG pH POC ABG pCO2 Sodium 160 H Potassium Chloride 123.9 H Carbon Dioxide 19 L BUN 161 H Creatinine 3.9 H Glucose 468 H POC Glucose 309 H 316 H Lactic Acid Calcium 7.8 L Total Creatine Kinase Troponin T 0.031 H D Albumin Triglycerides HDL Cholesterol 01/26/19 01/26/19 01/27/19 14:30 16:11 03:18 WBC RBC Hgb Hct MCV MCH MCHC RDW Lymph % (Auto) [place] % (Auto) Lymph # [place] # Baso # Seg Neutrophils % Seg Neuts % (Manual) Nucleated RBC % Seg Neutrophils # POC ABG pH POC ABG pCO2 Sodium 160 H Potassium 3.4 L D Chloride 124.8 H Carbon Dioxide BUN 141 H Creatinine 2.9 H Glucose 126 H POC Glucose 167 H 184 H Lactic Acid Calcium 8.3 L Total Creatine Kinase Troponin T Albumin Triglycerides HDL Cholesterol 01/27/19 01/27/19 01/27/19 06:23 06:33 06:33 WBC RBC Hgb Hct MCV 79 L MCH 25 L MCHC 31 L RDW 17.7 H Lymph % (Auto) [place] % (Auto) 8.1 H Lymph # [place] # Baso # Seg Neutrophils % 71.1 H Seg Neuts % (Manual) Nucleated RBC % Seg Neutrophils # POC ABG pH POC ABG pCO2 Sodium 157 H Potassium Chloride 121.4 H Carbon Dioxide BUN 117 H Creatinine 1.9 H Glucose 200 H POC Glucose 219 H Lactic Acid Calcium 8.3 L Total Creatine Kinase Troponin T Albumin Triglycerides HDL Cholesterol 01/27/19 01/27/19 01/27/19 11:13 12:46 16:10 WBC RBC Hgb Hct MCV MCH MCHC RDW Lymph % (Auto) [place] % (Auto) Lymph # [place] # Baso # Seg Neutrophils % Seg Neuts % (Manual) Nucleated RBC % Seg Neutrophils # POC ABG pH POC ABG pCO2 Sodium Potassium Chloride Carbon Dioxide BUN Creatinine Glucose POC Glucose 200 H 205 H 230 H Lactic Acid Calcium Total Creatine Kinase Troponin T Albumin Triglycerides HDL Cholesterol 01/28/19 01/28/19 01/28/19 00:09 06:04 06:04 WBC RBC Hgb 11.5 L Hct MCV 77 L MCH 25 L MCHC RDW 17.4 H Lymph % (Auto) [place] % (Auto) 8.7 H Lymph # [place] # Baso # Seg Neutrophils % Seg Neuts % (Manual) Nucleated RBC % Seg Neutrophils # POC ABG pH POC ABG pCO2 Sodium 159 H Potassium 3.3 L Chloride 123.1 H Carbon Dioxide BUN 75 H Creatinine Glucose 310 H POC Glucose 177 H Lactic Acid Calcium Total Creatine Kinase Troponin T Albumin Triglycerides HDL Cholesterol 01/28/19 01/28/19 01/28/19 06:42 12:28 15:10 WBC RBC Hgb Hct MCV MCH MCHC RDW Lymph % (Auto) [place] % (Auto) Lymph # [place] # Baso # Seg Neutrophils % Seg Neuts % (Manual) Nucleated RBC % Seg Neutrophils # POC ABG pH POC ABG pCO2 Sodium Potassium Chloride Carbon Dioxide BUN Creatinine Glucose POC Glucose 384 H 280 H 282 H Lactic Acid Calcium Total Creatine Kinase Troponin T Albumin Triglycerides HDL Cholesterol 01/28/19 01/28/19 01/28/19 18:54 19:00 21:44 WBC RBC Hgb Hct MCV MCH MCHC RDW Lymph % (Auto) [place] % (Auto) Lymph # [place] # Baso # Seg Neutrophils % Seg Neuts % (Manual) Nucleated RBC % Seg Neutrophils # POC ABG pH 7.479 H POC ABG pCO2 32.3 L Sodium Potassium Chloride Carbon Dioxide BUN Creatinine Glucose POC Glucose 189 H 179 H Lactic Acid Calcium Total Creatine Kinase Troponin T Albumin Triglycerides HDL Cholesterol 01/29/19 01/29/19 01/29/19 01:48 04:37 05:38 WBC RBC Hgb Hct MCV MCH MCHC RDW Lymph % (Auto) [place] % (Auto) Lymph # Jarod # Baso # Seg Neutrophils % Seg Neuts % (Manual) Nucleated RBC % Seg Neutrophils # POC ABG pH POC ABG pCO2 Sodium 164 H* Potassium 3.5 L Chloride 128.9 H Carbon Dioxide BUN 54 H Creatinine Glucose 271 H POC Glucose 238 H 248 H Lactic Acid Calcium Total Creatine Kinase Troponin T Albumin Triglycerides HDL Cholesterol 01/29/19 01/29/19 01/29/19 10:26 13:19 17:57 WBC RBC Hgb Hct MCV MCH MCHC RDW Lymph % (Auto) [place] % (Auto) Lymph # Jarod # Baso # Seg Neutrophils % Seg Neuts % (Manual) Nucleated RBC % Seg Neutrophils # POC ABG pH POC ABG pCO2 Sodium Potassium Chloride Carbon Dioxide BUN Creatinine Glucose POC Glucose 288 H 301 H 242 H Lactic Acid Calcium Total Creatine Kinase Troponin T Albumin Triglycerides HDL Cholesterol 01/29/19 01/30/19 01/30/19 20:25 01:51 05:23 WBC RBC Hgb Hct MCV MCH MCHC RDW Lymph % (Auto) [place] % (Auto) Lymph # [place] # Baso # Seg Neutrophils % Seg Neuts % (Manual) Nucleated RBC % Seg Neutrophils # POC ABG pH POC ABG pCO2 Sodium Potassium Chloride Carbon Dioxide BUN Creatinine Glucose POC Glucose 223 H 229 H 218 H Lactic Acid Calcium Total Creatine Kinase Troponin T Albumin Triglycerides HDL Cholesterol 05/04/19 05/04/19 05/04/19 07:16 10:26 14:24 WBC RBC Hgb Hct MCV MCH MCHC RDW Lymph % (Auto) [place] % (Auto) Lymph # [place] # Baso # Seg Neutrophils % Seg Neuts % (Manual) Nucleated RBC % Seg Neutrophils # POC ABG pH POC ABG pCO2 Sodium 155 H D Potassium 3.2 L Chloride 118.4 H Carbon Dioxide BUN 40 H Creatinine Glucose 246 H POC Glucose 257 H 240 H Lactic Acid Calcium 8.3 L Total Creatine Kinase Troponin T Albumin Triglycerides HDL Cholesterol 01/30/19 01/30/19 01/30/19 18:30 20:44 23:38 WBC RBC Hgb Hct MCV MCH MCHC RDW Lymph % (Auto) [place] % (Auto) Lymph # [place] # Baso # Seg Neutrophils % Seg Neuts % (Manual) Nucleated RBC % Seg Neutrophils # POC ABG pH POC ABG pCO2 Sodium Potassium Chloride Carbon Dioxide BUN Creatinine Glucose POC Glucose 327 H 300 H 279 H Lactic Acid Calcium Total Creatine Kinase Troponin T Albumin Triglycerides HDL Cholesterol 01/31/19 01/31/19 01/31/19 01:57 04:42 04:42 WBC RBC Hgb 10.1 L Hct 31.7 L MCV 79 L MCH 25 L MCHC RDW 17.4 H Lymph % (Auto) [place] % (Auto) Lymph # [place] # Baso # Seg Neutrophils % Seg Neuts % (Manual) 75.0 H Nucleated RBC % 2.0 H Seg Neutrophils # POC ABG pH POC ABG pCO2 Sodium 147 H D Potassium 3.2 L Chloride 110.0 H Carbon Dioxide BUN 28 H Creatinine Glucose 261 H POC Glucose 270 H Lactic Acid Calcium 7.8 L Total Creatine Kinase Troponin T Albumin Triglycerides HDL Cholesterol 01/31/19 01/31/19 01/31/19 05:10 08:46 17:10 WBC RBC Hgb Hct MCV MCH MCHC RDW Lymph % (Auto) [place] % (Auto) Lymph # [place] # Baso # Seg Neutrophils % Seg Neuts % (Manual) Nucleated RBC % Seg Neutrophils # POC ABG pH POC ABG pCO2 Sodium Potassium Chloride Carbon Dioxide BUN Creatinine Glucose POC Glucose 239 H 242 H 298 H Lactic Acid Calcium Total Creatine Kinase Troponin T Albumin Triglycerides HDL Cholesterol 01/31/19 02/01/19 02/01/19 21:10 02:17 03:50 WBC RBC Hgb Hct MCV MCH MCHC RDW Lymph % (Auto) [place] % (Auto) Lymph # [place] # Baso # Seg Neutrophils % Seg Neuts % (Manual) Nucleated RBC % Seg Neutrophils # POC ABG pH POC ABG pCO2 Sodium 146 H Potassium Chloride 110.9 H Carbon Dioxide 21 L BUN 26 H Creatinine 0.7 L Glucose 240 H POC Glucose 304 H 240 H Lactic Acid Calcium 8.3 L Total Creatine Kinase Troponin T Albumin Triglycerides HDL Cholesterol 02/01/19 02/01/19 02/01/19 03:50 05:35 10:11 WBC RBC Hgb 10.2 L Hct 31.4 L MCV 78 L MCH 25 L MCHC RDW 16.9 H Lymph % (Auto) [place] % (Auto) Lymph # [place] # Baso # Seg Neutrophils % Seg Neuts % (Manual) 78.0 H Nucleated RBC % Seg Neutrophils # POC ABG pH POC ABG pCO2 Sodium Potassium Chloride Carbon Dioxide BUN Creatinine Glucose POC Glucose 208 H 186 H Lactic Acid Calcium Total Creatine Kinase Troponin T Albumin Triglycerides HDL Cholesterol 02/01/19 02/01/19 14:35 17:25 WBC RBC Hgb Hct MCV MCH MCHC RDW Lymph % (Auto) [place] % (Auto) Lymph # [place] # Baso # Seg Neutrophils % Seg Neuts % (Manual) Nucleated RBC % Seg Neutrophils # POC ABG pH POC ABG pCO2 Sodium Potassium Chloride Carbon Dioxide BUN Creatinine Glucose POC Glucose 222 H 193 H Lactic Acid Calcium Total Creatine Kinase Troponin T Albumin Triglycerides HDL Cholesterol Allied health notes reviewed: nursing
[2019-02-01] MEDS: LANTUS SUB-Q SCH (22:54)
[2019-02-02] MEDS: HumaLOG SUB-Q SCH ×5 (02:00→19:15)
[2019-02-02] MEDS: APRESOLINE IV SCH ×3 (06:00→21:21)
[2019-02-02 07:25] LABS: BUN/Creatinine Ratio 27; Blood Urea Nitrogen 16 mg/dL (9-20); Calcium 7.9 mg/dL (8.4-10.2); Hemolysis Index 6
--- NOTE | 2019-02-02 07:34 | XRay Report ---
Single view abdomen: History: Dobbhoff placement. Findings: Tip of Dobbhoff feeding tube is noted in the distal stomach. Impression: Tip of Dobbhoff feeding tube is noted in distal stomach.
--- NOTE | 2019-02-02 09:21 | Progress Note ---
Assessment and Plan Impression * Acute kidney injury * Hyperkalemia * Hypernatremia * History of basal ganglion hemorrhage * History of BPH * Diabetes Recommendations * Patient's renal function has improved * Patient is currently nonoliguric. Condom catheter in place. * Hypernatremia is improving. Change IV fluid to D5W and reduce rate * Continue free water through feeding tube * Avoid nephrotoxins * Replace potassium Subjective Date of service: 02/02/19 Principal diagnosis: MYRTLE/Hypernatremia Interval history: Patient is currently lethargic. Not answering any questions. IV fluid infusing Objective - Vital Signs Vital signs: Vital Signs - 12hr 02/01/19 02/01/19 02/01/19 22:00 22:44 22:53 Temperature 98.9 F Pulse Rate 101 H 107 H 102 H Pulse Rate [ 100 H From Monitor] Respiratory 18 Rate Blood Pressure 147/89 133/78 O2 Sat by Pulse 100 Oximetry 02/02/19 02/02/19 02/02/19 03:00 03:11 09:07 Temperature 99.0 F 99.0 F 98.4 F Pulse Rate 104 H 107 H 97 H Pulse Rate [ From Monitor] Respiratory 17 18 18 Rate Blood Pressure 127/83 138/84 142/93 O2 Sat by Pulse 98 97 99 Oximetry - General Appearance General appearance: well-developed, well-nourished, appears stated age EENT: PERRL, mucous membranes moist Neck: no JVD, no thyromegaly, no carotid bruit, supple Respiratory: Present: Clear to Ascultation Cardiology: regular, normal heart rate, S1S2, no murmurs Gastrointestinal: normal, normoactive bowel sounds Integumentary: other (1+ edema especially in his upper extremities) - Lab 02/01/19 03:50 02/02/19 07:26 Most recent lab results Calcium 7.9 mg/dL (8.4-10.2) L 02/02/19 07:26 Magnesium 1.80 mg/dL (1.7-2.3) 02/01/19 03:50 Medications & Allergies - Medications Allergies/Adverse Reactions: Allergies No Known Allergies Allergy (Unverified 02/07/16 02:00) Home Medications: Home Medications Medication Instructions Recorded Confirmed Last Taken Type Citalopram Hydrobromide [celeXA] 20 mg PO DAILY 05/08/1401/25/19 02/06/16 History Acetaminophen [Tylenol] 650 mg PO Q4HR PRN 01/25/19 01/25/19 Unknown History AtorvaSTATin [Lipitor] 40 mg PO QHS 01/25/19 01/25/19 Unknown History Insulin Lispro [HumaLOG VIAL] See Protocol SUB-Q BID 01/25/19 01/25/19 Unknown History LORazepam [Ativan] 0.5 mg PO Q8H PRN 01/25/19 01/25/19 Unknown History Latanoprost [Xalatan] 1 drop OU HS 01/25/19 01/25/19 Unknown History Lisinopril [Zestril] 20 mg PO QDAY 01/25/19 01/25/19 Unknown History Magnesium Oxide [Mag-Ox] 400 mg PO QDAY 01/25/19 01/25/19 Unknown History Quetiapine Fumarate [SEROquel] 50 mg PO TID 01/25/19 01/25/19 Unknown History Thiamine [Vitamin B-1] 100 mg PO AC 01/25/19 01/25/19 Unknown History Timolol 0.5% [Timoptic] 1 drop OU BID 01/25/19 01/25/19 Unknown History hydroCHLOROthiazide [HCTZ] 25 mg PO QDAY 01/25/19 01/25/19 Unknown History Active Medications: Generic Name Dose Route Start Last Admin Trade Name Freq PRN Reason Stop Dose Admin Lipase/Protease/Amylase 1 each 01/26/19 11:47 Pancreaze 10,500 Unit FEEDTUBE PRN PRN For Clogged Feeding Tube Heparin Sodium (Porcine) 5,000 unit 01/25/19 22:00 02/01/19 22:53 Heparin SUB-Q 5,000 unit Q12HR NIKOLAS Administration Hydralazine HCl 10 mg 02/01/19 18:00 02/02/19 06:00 Apresoline IV Not Given Q8HR [facility] Sodium Chloride 1,000 mls @ 75 mls/hr 02/01/19 17:00 Nacl 0.45% 1000 Ml IV DIRECT NIKOLAS Insulin Glargine 45 units 01/29/19 22:00 02/01/19 22:54 Lantus SUB-Q 45 units QHS NIKOLAS Administration Insulin Human Lispro 0 unit 01/25/19 23:15 02/02/19 06:00 Humalog SUB-Q Not Given Q4HR NIKOLAS Protocol Potassium Chloride 40 meq 02/02/19 10:00 Potassium Chloride FEEDTUBE 02/04/19 10:01 QDAY NIKOLAS Simple Syrup 15 ml 01/26/19 11:47 Simple Syrup FEEDTUBE PRN PRN Hypoglycemia Simple Syrup 30 ml 01/26/19 11:47 Simple Syrup FEEDTUBE PRN PRN Hypoglycemia Sodium Bicarbonate 325 mg 01/26/19 11:47 Sodium Bicarbonate FEEDTUBE PRN PRN For Clogged Feeding Tube Sodium Chloride 10 ml 01/25/19 22:00 02/01/19 23:12 Sodium Chloride Flush Syringe 10 Ml IV 10 ml BID NIKOLAS Administration Sodium Chloride 10 ml 01/25/19 17:46 Sodium Chloride Flush Syringe 10 Ml IV PRN PRN LINE FLUSH
[2019-02-02] MEDS: HEPARIN SUB-Q SCH ×2 (10:23→21:23)
[2019-02-02] MEDS: SODIUM CHLORIDE FLUSH SYRINGE 10 ML IV SCH ×2 (10:23→21:21)
[2019-02-02] MEDS: POTASSIUM CHLORIDE FEEDTUBE SCH (10:56)
[2019-02-02] MEDS: D5W 1,000 ML IV SCH (11:23)
--- NOTE | 2019-02-02 12:02 | Progress Note ---
Assessment and Plan Assessment and plan: Metabolic encephalopathy. Patient remains confused requiring restraints. Continue to treat underlying causes of hypernatremia. Neurology following. Head CT negative. Obtain MRI Brain Hypernatremia. Continue free water and IV fluids Acute renal failure/MYRTLE. Etiology likely secondary to vasomotor nephropathy/dehydration. Nephrology following. Hyperlipidemia. Continue statins. Hypokalemia. Replete potassium as needed. Hypertension. Continue antihypertensive medications. Diabetes mellitus type 2. Continue Accu-Cheks qac hs, Sliding scale regular insulin and Lantus History Interval history: Altered mental status Hospitalist Physical - Physical exam Narrative exam: Gen: Not in acute distress, lying in bed HEENT: Normocephalic, atraumatic Neck: supple, no JVD Heart: S1 and S2 reg, no murmurs, rubs or gallop Lungs: Clear, no crackles Abd: soft, non tender, non distended, normal BS Ext: No edema, no clubbing, no cyanosis, Neuro: Lethargic - Constitutional Vitals: Temp Pulse Resp BP Pulse Ox 98.4 F 97 H 18 142/93 99 02/02/19 09:07 02/02/19 09:07 02/02/19 09:07 02/02/19 09:07 02/02/19 09:07 General appearance: Present: no acute distress, well-nourished Results - Labs CBC & Chem 7: 02/01/19 03:50 02/02/19 07:26 Labs: Laboratory Last Values WBC 8.2 K/mm3 (4.5-11.0) 02/01/19 03:50 RBC 4.02 M/mm3 (3.65-5.03) 02/01/19 03:50 Hgb 10.2 gm/dl (11.8-15.2) L 02/01/19 03:50 Hct 31.4 % (35.5-45.6) L 02/01/19 03:50 MCV 78 fl (84-94) L 02/01/19 03:50 MCH 25 pg (28-32) L 02/01/19 03:50 MCHC 32 % (32-34) 02/01/19 03:50 RDW 16.9 % (13.2-15.2) H 02/01/19 03:50 Plt Count 178 K/mm3 (140-440) 02/01/19 03:50 Lymph % (Auto) 19.1 % (13.4-35.0) 01/28/19 06:04 [place] % (Auto) 8.7 % (0.0-7.3) H 01/28/19 06:04 Eos % (Auto) 3.1 % (0.0-4.3) 01/28/19 06:04 Baso % (Auto) 0.3 % (0.0-1.8) 01/28/19 06:04 Lymph # 1.3 K/mm3 (1.2-5.4) 01/28/19 06:04 [place] # 0.6 K/mm3 (0.0-0.8) 01/28/19 06:04 Eos # 0.2 K/mm3 (0.0-0.4) 01/28/19 06:04 Baso # 0.0 K/mm3 (0.0-0.1) 01/28/19 06:04 Add Manual Diff Complete 02/01/19 03:50 Total Counted 100 02/01/19 03:50 Seg Neutrophils % 68.8 % (40.0-70.0) 01/28/19 06:04 Seg Neuts % (Manual) 78.0 % (40.0-70.0) H 02/01/19 03:50 1.0 % 02/01/19 03:50 16.0 % (13.4-35.0) 02/01/19 03:50 Reactive Lymphs % (Man) 0 % 02/01/19 03:50 1.0 % (0.0-7.3) 02/01/19 03:50 4.0 % (0.0-4.3) 02/01/19 03:50 0 % (0.0-1.8) 02/01/19 03:50 0 % 02/01/19 03:50 0 % 02/01/19 03:50 0 % 02/01/19 03:50 0 % 02/01/19 03:50 Nucleated RBC % Not Reportable 02/01/19 03:50 Seg Neutrophils # 4.8 K/mm3 (1.8-7.7) 01/28/19 06:04 Seg Neutrophils # Man 6.4 K/mm3 (1.8-7.7) 02/01/19 03:50 Band Neutrophils # 0.1 K/mm3 02/01/19 03:50 1.3 K/mm3 (1.2-5.4) 02/01/19 03:50 Abs React Lymphs (Man) 0.0 K/mm3 02/01/19 03:50 0.1 K/mm3 (0.0-0.8) 02/01/19 03:50 0.3 K/mm3 (0.0-0.4) 02/01/19 03:50 0.0 K/mm3 (0.0-0.1) 02/01/19 03:50 0.0 K/mm3 02/01/19 03:50 0.0 K/mm3 02/01/19 03:50 0.0 K/mm3 02/01/19 03:50 Blast Cells # 0.0 K/mm3 02/01/19 03:50 WBC Morphology Not Reportable 02/01/19 03:50 Hypersegmented Neuts Not Reportable 02/01/19 03:50 Hyposegmented Neuts Not Reportable 02/01/19 03:50 Hypogranular Neuts Not Reportable 02/01/19 03:50 Not Reportable 02/01/19 03:50 Not Reportable 02/01/19 03:50 Not Reportable 02/01/19 03:50 Not Reportable 02/01/19 03:50 Not Reportable 02/01/19 03:50 Not Reportable 02/01/19 03:50 Appears normal 02/01/19 03:50 Not Reportable 02/01/19 03:50 Plt Clumps, EDTA Not Reportable 02/01/19 03:50 Not Reportable 02/01/19 03:50 Not Reportable 02/01/19 03:50 Not Reportable 02/01/19 03:50 Plt Morphology Comment Not Reportable 02/01/19 03:50 RBC Morphology Not Reportable 02/01/19 03:50 Dimorphic RBCs Not Reportable 02/01/19 03:50 Not Reportable 02/01/19 03:50 1+ 02/01/19 03:50 Not Reportable 02/01/19 03:50 1+ 02/01/19 03:50 Not Reportable 02/01/19 03:50 Not Reportable 02/01/19 03:50 Not Reportable 02/01/19 03:50 Not Reportable 02/01/19 03:50 Not Reportable 02/01/19 03:50 Not Reportable 02/01/19 03:50 Not Reportable 02/01/19 03:50 Not Reportable 02/01/19 03:50 Not Reportable 02/01/19 03:50 Not Reportable 02/01/19 03:50 Not Reportable 02/01/19 03:50 Not Reportable 02/01/19 03:50 Not Reportable 02/01/19 03:50 Not Reportable 02/01/19 03:50 Not Reportable 02/01/19 03:50 Acanthocytes (Spur) Not Reportable 02/01/19 03:50 Rouleaux Not Reportable 02/01/19 03:50 Not Reportable 02/01/19 03:50 Not Reportable 02/01/19 03:50 Not Reportable 02/01/19 03:50 Not Reportable 02/01/19 03:50 Hem Pathologist Commnt No 02/01/19 03:50 POC ABG pH 7.479 (7.35-7.45) H 01/28/19 19:00 POC ABG pCO2 32.3 (35-45) L 01/28/19 19:00 POC ABG pO2 93 (80-105) 01/28/19 19:00 POC ABG HCO3 24.0 (22-26 mml/L) 01/28/19 19:00 POC ABG Total CO2 25 (23-27mmol/L) 01/28/19 19:00 POC ABG O2 Sat 98 01/28/19 19:00 POC ABG Base Excess 0 ((-2) - (+3)mmol/L) 01/28/19 19:00 21 % 01/28/19 19:00 Sodium 144 mmol/L (137-145) 02/02/19 07:26 Potassium 3.3 mmol/L (3.6-5.0) L D 02/02/19 07:26 Chloride 107.8 mmol/L (98-107) H 02/02/19 07:26 Carbon Dioxide 26 mmol/L (22-30) 02/02/19 07:26 14 mmol/L 02/02/19 07:26 BUN 16 mg/dL (9-20) 02/02/19 07:26 0.6 mg/dL (0.8-1.5) L 02/02/19 07:26 Estimated GFR > 60 ml/min 02/02/19 07:26 27 % 02/02/19 07:26 Glucose 117 mg/dL (75-100) H 02/02/19 07:26 POC Glucose 110 (70-105) H 02/02/19 07:17 Lactic Acid 1.40 mmol/L (0.7-2.0) 01/25/19 18:50 Calcium 7.9 mg/dL (8.4-10.2) L 02/02/19 07:26 Magnesium 1.80 mg/dL (1.7-2.3) 02/01/19 03:50 0.20 mg/dL (0.1-1.2) 01/26/19 04:25 AST 12 units/L (5-40) 01/26/19 04:25 ALT 17 units/L (7-56) 01/26/19 04:25 84 units/L (35-129) 01/26/19 04:25 41.0 umol/L (25-60) 01/31/19 13:26 294 units/L (55-170) H 01/25/19 13:31 CK-MB (CK-2) 2.2 ng/mL (0.0-4.0) 01/25/19 13:31 CK-MB (CK-2) Rel Index 0.7 (0-4) 01/25/19 13:31 0.031 ng/mL (0.00-0.029) H D 01/26/19 04:25 6.4 g/dL (6.3-8.2) 01/26/19 04:25 2.3 g/dL (3.9-5) L 01/26/19 04:25 0.6 % 01/26/19 04:25 Triglycerides 172 mg/dL (2-149) H 01/25/19 13:31 Cholesterol 148 mg/dL (50-199) 01/25/19 13:31 82 mg/dL (50-130) 01/25/19 13:31 30 mg/dL (40-59) L 01/25/19 13:31 4.93 % 01/25/19 13:31 TSH 4.020 mlU/mL (0.270-4.200) 01/25/19 13:31 Free T4 0.89 ng/dL (0.76-1.46) 01/25/19 13:31 Yellow (Yellow) 01/25/19 15:00 Slightly-cloudy (Clear) 01/25/19 15:00 5.0 (5.0-7.0) 01/25/19 15:00 Ur Specific [place] 1.018 (1.003-1.030) 01/25/19 15:00 <15 mg/dl mg/dL (Negative) 01/25/19 15:00 50 mg/dL (Negative) 01/25/19 15:00 Neg mg/dL (Negative) 01/25/19 15:00 Neg (Negative) 01/25/19 15:00 Neg (Negative) 01/25/19 15:00 Neg (Negative) 01/25/19 15:00 4.0 mg/dL (<2.0) 01/25/19 15:00 Ur Leukocyte Esterase Neg (Negative) 01/25/19 15:00 3.0 /HPF (0.0-6.0) 01/25/19 15:00 1.0 /HPF (0.0-6.0) 01/25/19 15:00 U Epithel Cells (Auto) < 1.0 /HPF (0-13.0) 01/25/19 15:00 Hyaline Casts 9 /LPF 01/25/19 15:00 Active Medications - Current Medications Current Medications: Generic Name Dose Route Start Last Admin Trade Name Abbi PRN Reason Stop Dose Admin Lipase/Protease/Amylase 1 each 01/26/19 11:[address] 10,500 Unit FEEDTUBE PRN PRN For Clogged Feeding Tube Heparin Sodium (Porcine) 5,000 unit 01/25/19 22:00 02/02/19 10:23 Heparin SUB-Q 5,000 unit Q12HR NIKOLAS Administration Hydralazine HCl 10 mg 02/01/19 18:00 02/02/19 06:00 Apresoline IV Not Given Q8HR NIKOLAS Dextrose 1,000 mls @ 42 mls/hr 02/02/19 10:00 02/02/19 11:23 D5w IV 42 mls/hr DIRECT NIKOLAS Administration Insulin Glargine 45 units 01/29/19 22:00 02/01/19 22:54 Lantus SUB-Q 45 units QHS NIKOLAS Administration Insulin Human Lispro 0 unit 01/25/19 23:15 02/02/19 06:00 Humalog SUB-Q Not Given Q4HR [facility] Protocol Potassium Chloride 40 meq 02/02/19 10:00 02/02/19 10:56 Potassium Chloride FEEDTUBE 02/04/19 10:01 40 meq QDAY NIKOLAS Administration Simple Syrup 15 ml 01/26/19 11:47 Simple Syrup FEEDTUBE PRN PRN Hypoglycemia Simple Syrup 30 ml 01/26/19 11:47 Simple Syrup FEEDTUBE PRN PRN Hypoglycemia Sodium Bicarbonate 325 mg 01/26/19 11:47 Sodium Bicarbonate FEEDTUBE PRN PRN For Clogged Feeding Tube Sodium Chloride 10 ml 01/25/19 22:00 02/02/19 10:23 Sodium Chloride Flush Syringe 10 Ml IV 10 ml BID NIKOLAS Administration Sodium Chloride 10 ml 01/25/19 17:46 Sodium Chloride Flush Syringe 10 Ml IV PRN PRN LINE FLUSH Nutrition/Malnutrition Assess - Dietary Evaluation Nutrition/Malnutrition Findings: Nutrition Notes Start: 01/26/19 08:45 Freq: Status: Active Protocol: Document 01/28/19 10:22 TW (Rec: 01/28/19 10:25 TW [id number]) Co-Sign 01/28/19 10:22 LP Nutrition Notes Initial or Follow up Reassessment Current Diagnosis Hypertension Other Pertinent Diagnosis Acute renail failure, Hyperkalemia, AMS, Dehydration Current Diet [place]o 1.8 at 50 ml/hr Labs/Tests Na 159 BUN 75 K: 3.3 BG 310 Pertinent Medications Reviewed Height 5 ft 6 in Weight 74.9 kg [place] Body Weight (kg) 64.54 BMI 26.6 Subjective/Other Information Follow up for TF tolerance. Per RN, pt is tolerating TF well. Observed Nepro 1.8 running at goal rate (50 ml/hr ). Percent of energy/protein needs met: 100%/100% Burn Absent Trauma Absent #1 Nutrition Diagnosis Inadequate oral intake Diagnosis Progress(for reassessment Continues documentation) Is patient on ventilator? No Is Patient Ambulatory and/or Out of Bed No REE-(Delia-St. Jeor-confined to bed) 3226.187 Calculation Used for Recommendations Roshan Nassar Additional Notes PRO: 1.0-1.3 g/kg (75-98 g/day ) Fluid: 1500 mL or per MD Nutrition Intervention Nutrition Support: [place]ro 1.8 at 50 mL/hr Flush 100 mL q 4 hr Kcal 2,160 Protein (gm) 97 Fat (gm) 115 Fluid (mL) 872 Goal #1 Continue to meet at least 75% harsh and pro needs via TF Anticipated Discharge Needs: Unable to determine at this time Follow-Up By: 02/04/19 Additional Comments F/u: TF tolerance
--- NOTE | 2019-02-02 13:38 | Progress Note ---
Subjective Date of service: 02/02/19 Principal diagnosis: MYRTLE/Hypernatremia Interval history: patient seen and still very sleepy... no seizures noted presently EEG pending that I will review Objective - Vital Sign Vital Signs - 12hr 02/02/19 02/02/19 02/02/19 03:00 03:11 09:07 Temperature 99.0 F 99.0 F 98.4 F Pulse Rate 104 H 107 H 97 H Respiratory 17 18 18 Rate Blood Pressure 127/83 138/84 142/93 O2 Sat by Pulse 98 97 99 Oximetry 02/02/19 10:00 Temperature Pulse Rate 96 H Respiratory 17 Rate Blood Pressure O2 Sat by Pulse 98 Oximetry - Laboratory Findings CBC and BMP: 02/01/19 03:50 02/02/19 07:26 Abnormal Lab Findings: Abnormal Labs 01/25/19 01/25/19 01/25/19 13:31 13:31 13:31 WBC 12.0 H RBC 6.00 H Hgb Hct 47.7 H MCV 80 L MCH 25 L MCHC 31 L RDW 18.1 H Lymph % (Auto) 10.4 L [place] % (Auto) 9.3 H Lymph # [place] # 1.1 H Baso # Seg Neutrophils % 78.5 H Seg Neuts % (Manual) Nucleated RBC % Seg Neutrophils # 9.5 H POC ABG pH POC ABG pCO2 Sodium 159 H Potassium 6.0 H Chloride 119.0 H Carbon Dioxide BUN 185 H Creatinine 5.7 H D Glucose 433 H POC Glucose Lactic Acid 2.60 H* Calcium Total Creatine Kinase 294 H Troponin T 0.080 H Albumin 2.6 L Triglycerides 172 H HDL Cholesterol 30 L 01/25/19 01/25/19 01/25/19 16:03 16:03 17:11 WBC RBC Hgb Hct MCV MCH MCHC RDW Lymph % (Auto) [place] % (Auto) Lymph # [place] # Baso # Seg Neutrophils % Seg Neuts % (Manual) Nucleated RBC % Seg Neutrophils # POC ABG pH POC ABG pCO2 Sodium Potassium Chloride Carbon Dioxide BUN Creatinine Glucose POC Glucose 346 H Lactic Acid 2.20 H* 2.30 H* Calcium Total Creatine Kinase Troponin T Albumin Triglycerides HDL Cholesterol 01/25/19 01/25/19 01/26/19 18:50 23:08 00:22 WBC RBC Hgb Hct MCV MCH MCHC RDW Lymph % (Auto) [place] % (Auto) Lymph # [place] # Baso # Seg Neutrophils % Seg Neuts % (Manual) Nucleated RBC % Seg Neutrophils # POC ABG pH POC ABG pCO2 Sodium 162 H* Potassium Chloride 125.2 H Carbon Dioxide BUN 180 H Creatinine 5.1 H Glucose 438 H POC Glucose 480 H Lactic Acid Calcium Total Creatine Kinase Troponin T 0.045 H D Albumin Triglycerides HDL Cholesterol 01/26/19 01/26/19 01/26/19 02:16 04:25 04:25 WBC RBC 5.21 H Hgb Hct MCV 80 L MCH 25 L MCHC 31 L RDW 18.0 H Lymph % (Auto) 8.2 L [place] % (Auto) 7.6 H Lymph # 0.8 L [place] # Baso # 0.2 H Seg Neutrophils % 81.6 H Seg Neuts % (Manual) Nucleated RBC % Seg Neutrophils # 8.3 H POC ABG pH POC ABG pCO2 Sodium 158 H Potassium Chloride 122.9 H Carbon Dioxide 21 L BUN 163 H Creatinine 3.9 H Glucose 465 H POC Glucose 462 H Lactic Acid Calcium 7.8 L Total Creatine Kinase Troponin T Albumin 2.3 L Triglycerides HDL Cholesterol 01/26/19 01/26/19 01/26/19 04:25 05:33 10:08 WBC RBC Hgb Hct MCV MCH MCHC RDW Lymph % (Auto) [place] % (Auto) Lymph # [place] # Baso # Seg Neutrophils % Seg Neuts % (Manual) Nucleated RBC % Seg Neutrophils # POC ABG pH POC ABG pCO2 Sodium 160 H Potassium Chloride 123.9 H Carbon Dioxide 19 L BUN 161 H Creatinine 3.9 H Glucose 468 H POC Glucose 309 H 316 H Lactic Acid Calcium 7.8 L Total Creatine Kinase Troponin T 0.031 H D Albumin Triglycerides HDL Cholesterol 01/26/19 01/26/19 01/27/19 14:30 16:11 03:18 WBC RBC Hgb Hct MCV MCH MCHC RDW Lymph % (Auto) [place] % (Auto) Lymph # [place] # Baso # Seg Neutrophils % Seg Neuts % (Manual) Nucleated RBC % Seg Neutrophils # POC ABG pH POC ABG pCO2 Sodium 160 H Potassium 3.4 L D Chloride 124.8 H Carbon Dioxide BUN 141 H Creatinine 2.9 H Glucose 126 H POC Glucose 167 H 184 H Lactic Acid Calcium 8.3 L Total Creatine Kinase Troponin T Albumin Triglycerides HDL Cholesterol 01/27/19 01/27/19 01/27/19 06:23 06:33 06:33 WBC RBC Hgb Hct MCV 79 L MCH 25 L MCHC 31 L RDW 17.7 H Lymph % (Auto) [place] % (Auto) 8.1 H Lymph # [place] # Baso # Seg Neutrophils % 71.1 H Seg Neuts % (Manual) Nucleated RBC % Seg Neutrophils # POC ABG pH POC ABG pCO2 Sodium 157 H Potassium Chloride 121.4 H Carbon Dioxide BUN 117 H Creatinine 1.9 H Glucose 200 H POC Glucose 219 H Lactic Acid Calcium 8.3 L Total Creatine Kinase Troponin T Albumin Triglycerides HDL Cholesterol 01/27/19 01/27/19 01/27/19 11:13 12:46 16:10 WBC RBC Hgb Hct MCV MCH MCHC RDW Lymph % (Auto) [place] % (Auto) Lymph # [place] # Baso # Seg Neutrophils % Seg Neuts % (Manual) Nucleated RBC % Seg Neutrophils # POC ABG pH POC ABG pCO2 Sodium Potassium Chloride Carbon Dioxide BUN Creatinine Glucose POC Glucose 200 H 205 H 230 H Lactic Acid Calcium Total Creatine Kinase Troponin T Albumin Triglycerides HDL Cholesterol 01/28/19 01/28/19 01/28/19 00:09 06:04 06:04 WBC RBC Hgb 11.5 L Hct MCV 77 L MCH 25 L MCHC RDW 17.4 H Lymph % (Auto) [place] % (Auto) 8.7 H Lymph # [place] # Baso # Seg Neutrophils % Seg Neuts % (Manual) Nucleated RBC % Seg Neutrophils # POC ABG pH POC ABG pCO2 Sodium 159 H Potassium 3.3 L Chloride 123.1 H Carbon Dioxide BUN 75 H Creatinine Glucose 310 H POC Glucose 177 H Lactic Acid Calcium Total Creatine Kinase Troponin T Albumin Triglycerides HDL Cholesterol 01/28/19 01/28/19 01/28/19 06:42 12:28 15:10 WBC RBC Hgb Hct MCV MCH MCHC RDW Lymph % (Auto) [place] % (Auto) Lymph # [place] # Baso # Seg Neutrophils % Seg Neuts % (Manual) Nucleated RBC % Seg Neutrophils # POC ABG pH POC ABG pCO2 Sodium Potassium Chloride Carbon Dioxide BUN Creatinine Glucose POC Glucose 384 H 280 H 282 H Lactic Acid Calcium Total Creatine Kinase Troponin T Albumin Triglycerides HDL Cholesterol 01/28/19 01/28/19 01/28/19 18:54 19:00 21:44 WBC RBC Hgb Hct MCV MCH MCHC RDW Lymph % (Auto) [place] % (Auto) Lymph # [place] # Baso # Seg Neutrophils % Seg Neuts % (Manual) Nucleated RBC % Seg Neutrophils # POC ABG pH 7.479 H POC ABG pCO2 32.3 L Sodium Potassium Chloride Carbon Dioxide BUN Creatinine Glucose POC Glucose 189 H 179 H Lactic Acid Calcium Total Creatine Kinase Troponin T Albumin Triglycerides HDL Cholesterol 01/29/19 01/29/19 01/29/19 01:48 04:37 05:38 WBC RBC Hgb Hct MCV MCH MCHC RDW Lymph % (Auto) [place] % (Auto) Lymph # [place] # Baso # Seg Neutrophils % Seg Neuts % (Manual) Nucleated RBC % Seg Neutrophils # POC ABG pH POC ABG pCO2 Sodium 164 H* Potassium 3.5 L Chloride 128.9 H Carbon Dioxide BUN 54 H Creatinine Glucose 271 H POC Glucose 238 H 248 H Lactic Acid Calcium Total Creatine Kinase Troponin T Albumin Triglycerides HDL Cholesterol 01/29/19 01/29/19 01/29/19 10:26 13:19 17:57 WBC RBC Hgb Hct MCV MCH MCHC RDW Lymph % (Auto) [place] % (Auto) Lymph # [place] # Baso # Seg Neutrophils % Seg Neuts % (Manual) Nucleated RBC % Seg Neutrophils # POC ABG pH POC ABG pCO2 Sodium Potassium Chloride Carbon Dioxide BUN Creatinine Glucose POC Glucose 288 H 301 H 242 H Lactic Acid Calcium Total Creatine Kinase Troponin T Albumin Triglycerides HDL Cholesterol 01/29/19 01/30/19 01/30/19 20:25 01:51 05:23 WBC RBC Hgb Hct MCV MCH MCHC RDW Lymph % (Auto) [place] % (Auto) Lymph # [place] # Baso # Seg Neutrophils % Seg Neuts % (Manual) Nucleated RBC % Seg Neutrophils # POC ABG pH POC ABG pCO2 Sodium Potassium Chloride Carbon Dioxide BUN Creatinine Glucose POC Glucose 223 H 229 H 218 H Lactic Acid Calcium Total Creatine Kinase Troponin T Albumin Triglycerides HDL Cholesterol 01/30/19 01/30/19 01/30/19 07:16 10:26 14:24 WBC RBC Hgb Hct MCV MCH MCHC RDW Lymph % (Auto) [place] % (Auto) Lymph # [place] # Baso # Seg Neutrophils % Seg Neuts % (Manual) Nucleated RBC % Seg Neutrophils # POC ABG pH POC ABG pCO2 Sodium 155 H D Potassium 3.2 L Chloride 118.4 H Carbon Dioxide BUN 40 H Creatinine Glucose 246 H POC Glucose 257 H 240 H Lactic Acid Calcium 8.3 L Total Creatine Kinase Troponin T Albumin Triglycerides HDL Cholesterol 01/30/19 01/30/19 01/30/19 18:30 20:44 23:38 WBC RBC Hgb Hct MCV MCH MCHC RDW Lymph % (Auto) [place] % (Auto) Lymph # [place] # Baso # Seg Neutrophils % Seg Neuts % (Manual) Nucleated RBC % Seg Neutrophils # POC ABG pH POC ABG pCO2 Sodium Potassium Chloride Carbon Dioxide BUN Creatinine Glucose POC Glucose 327 H 300 H 279 H Lactic Acid Calcium Total Creatine Kinase Troponin T Albumin Triglycerides HDL Cholesterol 01/31/19 01/31/19 01/31/19 01:57 04:42 04:42 WBC RBC Hgb 10.1 L Hct 31.7 L MCV 79 L MCH 25 L MCHC RDW 17.4 H Lymph % (Auto) [place] % (Auto) Lymph # [place] # Baso # Seg Neutrophils % Seg Neuts % (Manual) 75.0 H Nucleated RBC % 2.0 H Seg Neutrophils # POC ABG pH POC ABG pCO2 Sodium 147 H D Potassium 3.2 L Chloride 110.0 H Carbon Dioxide BUN 28 H Creatinine Glucose 261 H POC Glucose 270 H Lactic Acid Calcium 7.8 L Total Creatine Kinase Troponin T Albumin Triglycerides HDL Cholesterol 01/31/19 01/31/19 01/31/19 05:10 08:46 17:10 WBC RBC Hgb Hct MCV MCH MCHC RDW Lymph % (Auto) [place] % (Auto) Lymph # [place] # Baso # Seg Neutrophils % Seg Neuts % (Manual) Nucleated RBC % Seg Neutrophils # POC ABG pH POC ABG pCO2 Sodium Potassium Chloride Carbon Dioxide BUN Creatinine Glucose POC Glucose 239 H 242 H 298 H Lactic Acid Calcium Total Creatine Kinase Troponin T Albumin Triglycerides HDL Cholesterol 01/31/19 02/01/19 02/01/19 21:10 02:17 03:50 WBC RBC Hgb Hct MCV MCH MCHC RDW Lymph % (Auto) [place] % (Auto) Lymph # [place] # Baso # Seg Neutrophils % Seg Neuts % (Manual) Nucleated RBC % Seg Neutrophils # POC ABG pH POC ABG pCO2 Sodium 146 H Potassium Chloride 110.9 H Carbon Dioxide 21 L BUN 26 H Creatinine 0.7 L Glucose 240 H POC Glucose 304 H 240 H Lactic Acid Calcium 8.3 L Total Creatine Kinase Troponin T Albumin Triglycerides HDL Cholesterol 02/01/19 02/01/19 02/01/19 03:50 05:35 10:11 WBC RBC Hgb 10.2 L Hct 31.4 L MCV 78 L MCH 25 L MCHC RDW 16.9 H Lymph % (Auto) [place] % (Auto) Lymph # [place] # Baso # Seg Neutrophils % Seg Neuts % (Manual) 78.0 H Nucleated RBC % Seg Neutrophils # POC ABG pH POC ABG pCO2 Sodium Potassium Chloride Carbon Dioxide BUN Creatinine Glucose POC Glucose 208 H 186 H Lactic Acid Calcium Total Creatine Kinase Troponin T Albumin Triglycerides HDL Cholesterol 02/01/19 02/01/19 02/01/19 14:35 17:25 20:44 WBC RBC Hgb Hct MCV MCH MCHC RDW Lymph % (Auto) [place] % (Auto) Lymph # [place] # Baso # Seg Neutrophils % Seg Neuts % (Manual) Nucleated RBC % Seg Neutrophils # POC ABG pH POC ABG pCO2 Sodium Potassium Chloride Carbon Dioxide BUN Creatinine Glucose POC Glucose 222 H 193 H 204 H Lactic Acid Calcium Total Creatine Kinase Troponin T Albumin Triglycerides HDL Cholesterol 02/02/19 02/02/19 07:17 07:26 WBC RBC Hgb Hct MCV MCH MCHC RDW Lymph % (Auto) [place] % (Auto) Lymph # [place] # Baso # Seg Neutrophils % Seg Neuts % (Manual) Nucleated RBC % Seg Neutrophils # POC ABG pH POC ABG pCO2 Sodium Potassium 3.3 L D Chloride 107.8 H Carbon Dioxide BUN Creatinine 0.6 L Glucose 117 H POC Glucose 110 H Lactic Acid Calcium 7.9 L Total Creatine Kinase Troponin T Albumin Triglycerides HDL Cholesterol
--- NOTE | 2019-02-02 18:35 | Progress Note ---
Assessment and Plan Patient sleeping and resting on 2 litres O2. O2 saturation 98%.No acute respiratory distress. - Patient Problems (1) Metabolic acidosis with increased anion gap and reduced excretion of inorganic acids Current Visit: Yes Status: Acute Plan to address problem: ABGs showed improvement in Acidosis. (2) IDDM (insulin dependent diabetes mellitus) Current Visit: Yes Status: Chronic Plan to address problem: Management as per primary care. (3) HTN (hypertension) Current Visit: Yes Status: Chronic Qualifiers: Hypertension type: essential hypertension Qualified Code(s): I10 - Essential (primary) hypertension Plan to address problem: Management as per primary care. (4) Acute metabolic encephalopathy Current Visit: Yes Status: Acute Plan to address problem: Management as per primary care. (5) MYRTLE (acute kidney injury) Current Visit: Yes Status: Acute Plan to address problem: Management as per Nephrology. Subjective Date of service: 02/02/19 Principal diagnosis: MYRTLE/Hypernatremia Interval history: Patient sleeping and resting on 2 litres O2. O2 saturation 98%.No acute respiratory distress. Objective Vital Signs - 12hr 02/02/19 02/02/19 02/02/19 09:07 10:00 14:54 Temperature 98.4 F Pulse Rate 97 H 96 H 90 Respiratory 18 17 Rate Blood Pressure 142/93 137/88 O2 Sat by Pulse 99 98 Oximetry Constitutional: no acute distress, other (Awake, not following commands, not oriented.) Eyes: non-icteric ENT: oropharynx moist Neck: supple, no lymphadenopathy, no JVD, other (no thyromegaly) Effort: normal Ascultation: Bilateral: diminished breath sounds Percussion: Bilateral: not dull Cardiovascular: regular rate and rhythm Gastrointestinal: normoactive bowel sounds, soft, non-tender, non-distended Integumentary: normal Extremities: no cyanosis, no edema, pulses normal, no ischemia or petechiae Neurologic: non-focal exam, pupils equal and round, other (hemiparesis, more awake and alert) Psychiatric: other (Can Not asses due to his mental status.) CBC and BMP: 02/01/19 03:50 02/02/19 07:26 ABG, PT/INR, D-dimer: ABG POC ABG pH 7.479 (7.35-7.45) H 01/28/19 19:00 POC ABG pCO2 32.3 (35-45) L 01/28/19 19:00 POC ABG pO2 93 (80-105) 01/28/19 19:00 POC ABG HCO3 24.0 (22-26 mml/L) 01/28/19 19:00 POC ABG Total CO2 25 (23-27mmol/L) 01/28/19 19:00 POC ABG O2 Sat 98 01/28/19 19:00 Abnormal lab findings: Abnormal Labs 01/25/19 01/25/19 01/25/19 13:31 13:31 13:31 WBC 12.0 H RBC 6.00 H Hgb Hct 47.7 H MCV 80 L MCH 25 L MCHC 31 L RDW 18.1 H Lymph % (Auto) 10.4 L [place] % (Auto) 9.3 H Lymph # Clarke # 1.1 H Baso # Seg Neutrophils % 78.5 H Seg Neuts % (Manual) Nucleated RBC % Seg Neutrophils # 9.5 H POC ABG pH POC ABG pCO2 Sodium 159 H Potassium 6.0 H Chloride 119.0 H Carbon Dioxide BUN 185 H Creatinine 5.7 H D Glucose 433 H POC Glucose Lactic Acid 2.60 H* Calcium Total Creatine Kinase 294 H Troponin T 0.080 H Albumin 2.6 L Triglycerides 172 H HDL Cholesterol 30 L 01/25/19 01/25/19 01/25/19 16:03 16:03 17:11 WBC RBC Hgb Hct MCV MCH MCHC RDW Lymph % (Auto) [place] % (Auto) Lymph # [place] # Baso # Seg Neutrophils % Seg Neuts % (Manual) Nucleated RBC % Seg Neutrophils # POC ABG pH POC ABG pCO2 Sodium Potassium Chloride Carbon Dioxide BUN Creatinine Glucose POC Glucose 346 H Lactic Acid 2.20 H* 2.30 H* Calcium Total Creatine Kinase Troponin T Albumin Triglycerides HDL Cholesterol 01/25/19 01/25/19 01/26/19 18:50 23:08 00:22 WBC RBC Hgb Hct MCV MCH MCHC RDW Lymph % (Auto) [place] % (Auto) Lymph # [place] # Baso # Seg Neutrophils % Seg Neuts % (Manual) Nucleated RBC % Seg Neutrophils # POC ABG pH POC ABG pCO2 Sodium 162 H* Potassium Chloride 125.2 H Carbon Dioxide BUN 180 H Creatinine 5.1 H Glucose 438 H POC Glucose 480 H Lactic Acid Calcium Total Creatine Kinase Troponin T 0.045 H D Albumin Triglycerides HDL Cholesterol 01/26/19 01/26/19 01/26/19 02:16 04:25 04:25 WBC RBC 5.21 H Hgb Hct MCV 80 L MCH 25 L MCHC 31 L RDW 18.0 H Lymph % (Auto) 8.2 L [place] % (Auto) 7.6 H Lymph # 0.8 L [place] # Baso # 0.2 H Seg Neutrophils % 81.6 H Seg Neuts % (Manual) Nucleated RBC % Seg Neutrophils # 8.3 H POC ABG pH POC ABG pCO2 Sodium 158 H Potassium Chloride 122.9 H Carbon Dioxide 21 L BUN 163 H Creatinine 3.9 H Glucose 465 H POC Glucose 462 H Lactic Acid Calcium 7.8 L Total Creatine Kinase Troponin T Albumin 2.3 L Triglycerides HDL Cholesterol 01/26/19 01/26/19 01/26/19 04:25 05:33 10:08 WBC RBC Hgb Hct MCV MCH MCHC RDW Lymph % (Auto) [place] % (Auto) Lymph # [place] # Baso # Seg Neutrophils % Seg Neuts % (Manual) Nucleated RBC % Seg Neutrophils # POC ABG pH POC ABG pCO2 Sodium 160 H Potassium Chloride 123.9 H Carbon Dioxide 19 L BUN 161 H Creatinine 3.9 H Glucose 468 H POC Glucose 309 H 316 H Lactic Acid Calcium 7.8 L Total Creatine Kinase Troponin T 0.031 H D Albumin Triglycerides HDL Cholesterol 01/26/19 01/26/19 01/27/19 14:30 16:11 03:18 WBC RBC Hgb Hct MCV MCH MCHC RDW Lymph % (Auto) [place] % (Auto) Lymph # [place] # Baso # Seg Neutrophils % Seg Neuts % (Manual) Nucleated RBC % Seg Neutrophils # POC ABG pH POC ABG pCO2 Sodium 160 H Potassium 3.4 L D Chloride 124.8 H Carbon Dioxide BUN 141 H Creatinine 2.9 H Glucose 126 H POC Glucose 167 H 184 H Lactic Acid Calcium 8.3 L Total Creatine Kinase Troponin T Albumin Triglycerides HDL Cholesterol 01/27/19 01/27/19 01/27/19 06:23 06:33 06:33 WBC RBC Hgb Hct MCV 79 L MCH 25 L MCHC 31 L RDW 17.7 H Lymph % (Auto) [place] % (Auto) 8.1 H Lymph # [place] # Baso # Seg Neutrophils % 71.1 H Seg Neuts % (Manual) Nucleated RBC % Seg Neutrophils # POC ABG pH POC ABG pCO2 Sodium 157 H Potassium Chloride 121.4 H Carbon Dioxide BUN 117 H Creatinine 1.9 H Glucose 200 H POC Glucose 219 H Lactic Acid Calcium 8.3 L Total Creatine Kinase Troponin T Albumin Triglycerides HDL Cholesterol 01/27/19 01/27/19 01/27/19 11:13 12:46 16:10 WBC RBC Hgb Hct MCV MCH MCHC RDW Lymph % (Auto) [place] % (Auto) Lymph # [place] # Baso # Seg Neutrophils % Seg Neuts % (Manual) Nucleated RBC % Seg Neutrophils # POC ABG pH POC ABG pCO2 Sodium Potassium Chloride Carbon Dioxide BUN Creatinine Glucose POC Glucose 200 H 205 H 230 H Lactic Acid Calcium Total Creatine Kinase Troponin T Albumin Triglycerides HDL Cholesterol 01/28/19 01/28/19 01/28/19 00:09 06:04 06:04 WBC RBC Hgb 11.5 L Hct MCV 77 L MCH 25 L MCHC RDW 17.4 H Lymph % (Auto) [place] % (Auto) 8.7 H Lymph # [place] # Baso # Seg Neutrophils % Seg Neuts % (Manual) Nucleated RBC % Seg Neutrophils # POC ABG pH POC ABG pCO2 Sodium 159 H Potassium 3.3 L Chloride 123.1 H Carbon Dioxide BUN 75 H Creatinine Glucose 310 H POC Glucose 177 H Lactic Acid Calcium Total Creatine Kinase Troponin T Albumin Triglycerides HDL Cholesterol 01/28/19 01/28/19 01/28/19 06:42 12:28 15:10 WBC RBC Hgb Hct MCV MCH MCHC RDW Lymph % (Auto) [place] % (Auto) Lymph # [place] # Baso # Seg Neutrophils % Seg Neuts % (Manual) Nucleated RBC % Seg Neutrophils # POC ABG pH POC ABG pCO2 Sodium Potassium Chloride Carbon Dioxide BUN Creatinine Glucose POC Glucose 384 H 280 H 282 H Lactic Acid Calcium Total Creatine Kinase Troponin T Albumin Triglycerides HDL Cholesterol 01/28/19 01/28/19 01/28/19 18:54 19:00 21:44 WBC RBC Hgb Hct MCV MCH MCHC RDW Lymph % (Auto) [place] % (Auto) Lymph # [place] # Baso # Seg Neutrophils % Seg Neuts % (Manual) Nucleated RBC % Seg Neutrophils # POC ABG pH 7.479 H POC ABG pCO2 32.3 L Sodium Potassium Chloride Carbon Dioxide BUN Creatinine Glucose POC Glucose 189 H 179 H Lactic Acid Calcium Total Creatine Kinase Troponin T Albumin Triglycerides HDL Cholesterol 01/29/19 01/29/19 01/29/19 01:48 04:37 05:38 WBC RBC Hgb Hct MCV MCH MCHC RDW Lymph % (Auto) [place] % (Auto) Lymph # [place] # Baso # Seg Neutrophils % Seg Neuts % (Manual) Nucleated RBC % Seg Neutrophils # POC ABG pH POC ABG pCO2 Sodium 164 H* Potassium 3.5 L Chloride 128.9 H Carbon Dioxide BUN 54 H Creatinine Glucose 271 H POC Glucose 238 H 248 H Lactic Acid Calcium Total Creatine Kinase Troponin T Albumin Triglycerides HDL Cholesterol 01/29/19 01/29/19 01/29/19 10:26 13:19 17:57 WBC RBC Hgb Hct MCV MCH MCHC RDW Lymph % (Auto) [place] % (Auto) Lymph # [place] # Baso # Seg Neutrophils % Seg Neuts % (Manual) Nucleated RBC % Seg Neutrophils # POC ABG pH POC ABG pCO2 Sodium Potassium Chloride Carbon Dioxide BUN Creatinine Glucose POC Glucose 288 H 301 H 242 H Lactic Acid Calcium Total Creatine Kinase Troponin T Albumin Triglycerides HDL Cholesterol 01/29/19 01/30/19 01/30/19 20:25 01:51 05:23 WBC RBC Hgb Hct MCV MCH MCHC RDW Lymph % (Auto) [place] % (Auto) Lymph # [place] # Baso # Seg Neutrophils % Seg Neuts % (Manual) Nucleated RBC % Seg Neutrophils # POC ABG pH POC ABG pCO2 Sodium Potassium Chloride Carbon Dioxide BUN Creatinine Glucose POC Glucose 223 H 229 H 218 H Lactic Acid Calcium Total Creatine Kinase Troponin T Albumin Triglycerides HDL Cholesterol 01/30/19 01/30/19 01/30/19 07:16 10:26 14:24 WBC RBC Hgb Hct MCV MCH MCHC RDW Lymph % (Auto) [place] % (Auto) Lymph # [place] # Baso # Seg Neutrophils % Seg Neuts % (Manual) Nucleated RBC % Seg Neutrophils # POC ABG pH POC ABG pCO2 Sodium 155 H D Potassium 3.2 L Chloride 118.4 H Carbon Dioxide BUN 40 H Creatinine Glucose 246 H POC Glucose 257 H 240 H Lactic Acid Calcium 8.3 L Total Creatine Kinase Troponin T Albumin Triglycerides HDL Cholesterol 01/30/19 01/30/19 01/30/19 18:30 20:44 23:38 WBC RBC Hgb Hct MCV MCH MCHC RDW Lymph % (Auto) [place] % (Auto) Lymph # [place] # Baso # Seg Neutrophils % Seg Neuts % (Manual) Nucleated RBC % Seg Neutrophils # POC ABG pH POC ABG pCO2 Sodium Potassium Chloride Carbon Dioxide BUN Creatinine Glucose POC Glucose 327 H 300 H 279 H Lactic Acid Calcium Total Creatine Kinase Troponin T Albumin Triglycerides HDL Cholesterol 01/31/19 01/31/19 01/31/19 01:57 04:42 04:42 WBC RBC Hgb 10.1 L Hct 31.7 L MCV 79 L MCH 25 L MCHC RDW 17.4 H Lymph % (Auto) [place] % (Auto) Lymph # [place] # Baso # Seg Neutrophils % Seg Neuts % (Manual) 75.0 H Nucleated RBC % 2.0 H Seg Neutrophils # POC ABG pH POC ABG pCO2 Sodium 147 H D Potassium 3.2 L Chloride 110.0 H Carbon Dioxide BUN 28 H Creatinine Glucose 261 H POC Glucose 270 H Lactic Acid Calcium 7.8 L Total Creatine Kinase Troponin T Albumin Triglycerides HDL Cholesterol 01/31/19 01/31/19 01/31/19 05:10 08:46 17:10 WBC RBC Hgb Hct MCV MCH MCHC RDW Lymph % (Auto) [place] % (Auto) Lymph # [place] # Baso # Seg Neutrophils % Seg Neuts % (Manual) Nucleated RBC % Seg Neutrophils # POC ABG pH POC ABG pCO2 Sodium Potassium Chloride Carbon Dioxide BUN Creatinine Glucose POC Glucose 239 H 242 H 298 H Lactic Acid Calcium Total Creatine Kinase Troponin T Albumin Triglycerides HDL Cholesterol 01/31/19 02/01/19 02/01/19 21:10 02:17 03:50 WBC RBC Hgb Hct MCV MCH MCHC RDW Lymph % (Auto) [place] % (Auto) Lymph # [place] # Baso # Seg Neutrophils % Seg Neuts % (Manual) Nucleated RBC % Seg Neutrophils # POC ABG pH POC ABG pCO2 Sodium 146 H Potassium Chloride 110.9 H Carbon Dioxide 21 L BUN 26 H Creatinine 0.7 L Glucose 240 H POC Glucose 304 H 240 H Lactic Acid Calcium 8.3 L Total Creatine Kinase Troponin T Albumin Triglycerides HDL Cholesterol 02/01/19 02/01/19 02/01/19 03:50 05:35 10:11 WBC RBC Hgb 10.2 L Hct 31.4 L MCV 78 L MCH 25 L MCHC RDW 16.9 H Lymph % (Auto) [place] % (Auto) Lymph # [place] # Baso # Seg Neutrophils % Seg Neuts % (Manual) 78.0 H Nucleated RBC % Seg Neutrophils # POC ABG pH POC ABG pCO2 Sodium Potassium Chloride Carbon Dioxide BUN Creatinine Glucose POC Glucose 208 H 186 H Lactic Acid Calcium Total Creatine Kinase Troponin T Albumin Triglycerides HDL Cholesterol 02/01/19 02/01/19 02/01/19 14:35 17:25 20:44 WBC RBC Hgb Hct MCV MCH MCHC RDW Lymph % (Auto) [place] % (Auto) Lymph # [place] # Baso # Seg Neutrophils % Seg Neuts % (Manual) Nucleated RBC % Seg Neutrophils # POC ABG pH POC ABG pCO2 Sodium Potassium Chloride Carbon Dioxide BUN Creatinine Glucose POC Glucose 222 H 193 H 204 H Lactic Acid Calcium Total Creatine Kinase Troponin T Albumin Triglycerides HDL Cholesterol 02/02/19 02/02/19 02/02/19 07:17 07:26 12:11 WBC RBC Hgb Hct MCV MCH MCHC RDW Lymph % (Auto) [place] % (Auto) Lymph # [place] # Baso # Seg Neutrophils % Seg Neuts % (Manual) Nucleated RBC % Seg Neutrophils # POC ABG pH POC ABG pCO2 Sodium Potassium 3.3 L D Chloride 107.8 H Carbon Dioxide BUN Creatinine 0.6 L Glucose 117 H POC Glucose 110 H 115 H Lactic Acid Calcium 7.9 L Total Creatine Kinase Troponin T Albumin Triglycerides HDL Cholesterol 02/02/19 02/02/19 16:10 18:30 WBC RBC Hgb Hct MCV MCH MCHC RDW Lymph % (Auto) [place] % (Auto) Lymph # [place] # Baso # Seg Neutrophils % Seg Neuts % (Manual) Nucleated RBC % Seg Neutrophils # POC ABG pH POC ABG pCO2 Sodium Potassium Chloride Carbon Dioxide BUN Creatinine Glucose POC Glucose 182 H 200 H Lactic Acid Calcium Total Creatine Kinase Troponin T Albumin Triglycerides HDL Cholesterol Allied health notes reviewed: nursing
[2019-02-02] MEDS: LANTUS SUB-Q SCH (21:21)
[2019-02-03] MEDS: HumaLOG SUB-Q SCH ×7 (01:42→22:06)
[2019-02-03] MEDS: APRESOLINE IV SCH ×2 (07:05→14:00)
[2019-02-03 07:47] LABS: Hematocrit 29.7 % (35.5-45.6); Hemoglobin 9.7 gm/dl (11.8-15.2); Mean Corpuscular HGB Conc 33 % (32-34); Mean Corpuscular Volume 76 fl (84-94); Platelet Count 195 K/mm3 (140-440); Red Blood Count 3.91 M/mm3 (3.65-5.03)
[2019-02-03 08:03] LABS: BUN/Creatinine Ratio 28; Blood Urea Nitrogen 17 mg/dL (9-20); Calcium 8.1 mg/dL (8.4-10.2); Hemolysis Index 4
--- NOTE | 2019-02-03 09:52 | Progress Note ---
Assessment and Plan Assessment and plan: Metabolic encephalopathy. Patient remains confused requiring restraints. Continue to treat underlying causes of hypernatremia. Neurology following. Head CT negative. Obtain MRI Brain Hypernatremia. Now resolved. Acute renal failure/MYRTLE. Etiology likely secondary to vasomotor nephropathy/dehydration. Nephrology following. Hyperlipidemia. Continue statins. Hypokalemia. Replete potassium as needed. Hypertension. Continue antihypertensive medications. Diabetes mellitus type 2. Continue Accu-Cheks qac hs, Sliding scale regular insulin and Lantus History Interval history: Altered mental status Hospitalist Physical - Physical exam Narrative exam: Gen: Not in acute distress, lying in bed HEENT: Normocephalic, atraumatic Neck: supple, no JVD Heart: S1 and S2 reg, no murmurs, rubs or gallop Lungs: Clear, no crackles Abd: soft, non tender, non distended, normal BS Ext: No edema, no clubbing, no cyanosis, Neuro: Lethargic - Constitutional Vitals: Temp Pulse Resp BP Pulse Ox 97.9 F 99 H 18 141/92 99 02/03/19 05:22 02/03/19 05:22 02/03/19 05:22 02/03/19 05:22 02/03/19 05:22 General appearance: Present: no acute distress, well-nourished Results - Labs CBC & Chem 7: 02/03/19 07:00 02/03/19 07:00 Labs: Laboratory Last Values WBC 6.2 K/mm3 (4.5-11.0) 02/03/19 07:00 RBC 3.91 M/mm3 (3.65-5.03) 02/03/19 07:00 Hgb 9.7 gm/dl (11.8-15.2) L 02/03/19 07:00 Hct 29.7 % (35.5-45.6) L 02/03/19 07:00 MCV 76 fl (84-94) L 02/03/19 07:00 MCH 25 pg (28-32) L 02/03/19 07:00 MCHC 33 % (32-34) 02/03/19 07:00 RDW 17.0 % (13.2-15.2) H 02/03/19 07:00 Plt Count 195 K/mm3 (140-440) 02/03/19 07:00 Lymph % (Auto) 19.1 % (13.4-35.0) 01/28/19 06:04 [place] % (Auto) 8.7 % (0.0-7.3) H 01/28/19 06:04 Eos % (Auto) 3.1 % (0.0-4.3) 01/28/19 06:04 Baso % (Auto) 0.3 % (0.0-1.8) 01/28/19 06:04 Lymph # 1.3 K/mm3 (1.2-5.4) 01/28/19 06:04 [place] # 0.6 K/mm3 (0.0-0.8) 01/28/19 06:04 Eos # 0.2 K/mm3 (0.0-0.4) 01/28/19 06:04 Baso # 0.0 K/mm3 (0.0-0.1) 01/28/19 06:04 Add Manual Diff Complete 02/01/19 03:50 Total Counted 100 02/01/19 03:50 Seg Neutrophils % 68.8 % (40.0-70.0) 01/28/19 06:04 Seg Neuts % (Manual) 78.0 % (40.0-70.0) H 02/01/19 03:50 1.0 % 02/01/19 03:50 16.0 % (13.4-35.0) 02/01/19 03:50 Reactive Lymphs % (Man) 0 % 02/01/19 03:50 1.0 % (0.0-7.3) 02/01/19 03:50 4.0 % (0.0-4.3) 02/01/19 03:50 0 % (0.0-1.8) 02/01/19 03:50 0 % 02/01/19 03:50 0 % 02/01/19 03:50 0 % 02/01/19 03:50 0 % 02/01/19 03:50 Nucleated RBC % Not Reportable 02/01/19 03:50 Seg Neutrophils # 4.8 K/mm3 (1.8-7.7) 01/28/19 06:04 Seg Neutrophils # Man 6.4 K/mm3 (1.8-7.7) 02/01/19 03:50 Band Neutrophils # 0.1 K/mm3 02/01/19 03:50 1.3 K/mm3 (1.2-5.4) 02/01/19 03:50 Abs React Lymphs (Man) 0.0 K/mm3 02/01/19 03:50 0.1 K/mm3 (0.0-0.8) 02/01/19 03:50 0.3 K/mm3 (0.0-0.4) 02/01/19 03:50 0.0 K/mm3 (0.0-0.1) 02/01/19 03:50 0.0 K/mm3 02/01/19 03:50 0.0 K/mm3 02/01/19 03:50 0.0 K/mm3 02/01/19 03:50 Blast Cells # 0.0 K/mm3 02/01/19 03:50 WBC Morphology Not Reportable 02/01/19 03:50 Hypersegmented Neuts Not Reportable 02/01/19 03:50 Hyposegmented Neuts Not Reportable 02/01/19 03:50 Hypogranular Neuts Not Reportable 02/01/19 03:50 Not Reportable 02/01/19 03:50 Not Reportable 02/01/19 03:50 Not Reportable 02/01/19 03:50 Not Reportable 02/01/19 03:50 Not Reportable 02/01/19 03:50 Not Reportable 02/01/19 03:50 Appears normal 02/01/19 03:50 Not Reportable 02/01/19 03:50 Plt Clumps, EDTA Not Reportable 02/01/19 03:50 Not Reportable 02/01/19 03:50 Not Reportable 02/01/19 03:50 Not Reportable 02/01/19 03:50 Plt Morphology Comment Not Reportable 02/01/19 03:50 RBC Morphology Not Reportable 02/01/19 03:50 Dimorphic RBCs Not Reportable 02/01/19 03:50 Not Reportable 02/01/19 03:50 1+ 02/01/19 03:50 Not Reportable 02/01/19 03:50 1+ 02/01/19 03:50 Not Reportable 02/01/19 03:50 Not Reportable 02/01/19 03:50 Not Reportable 02/01/19 03:50 Not Reportable 02/01/19 03:50 Not Reportable 02/01/19 03:50 Not Reportable 02/01/19 03:50 Not Reportable 02/01/19 03:50 Not Reportable 02/01/19 03:50 Not Reportable 02/01/19 03:50 Not Reportable 02/01/19 03:50 Not Reportable 02/01/19 03:50 Not Reportable 02/01/19 03:50 Not Reportable 02/01/19 03:50 Not Reportable 02/01/19 03:50 Not Reportable 02/01/19 03:50 Acanthocytes (Spur) Not Reportable 02/01/19 03:50 Rouleaux Not Reportable 02/01/19 03:50 Not Reportable 02/01/19 03:50 Not Reportable 02/01/19 03:50 Not Reportable 02/01/19 03:50 Not Reportable 02/01/19 03:50 Hem Pathologist Commnt No 02/01/19 03:50 POC ABG pH 7.479 (7.35-7.45) H 01/28/19 19:00 POC ABG pCO2 32.3 (35-45) L 01/28/19 19:00 POC ABG pO2 93 (80-105) 01/28/19 19:00 POC ABG HCO3 24.0 (22-26 mml/L) 01/28/19 19:00 POC ABG Total CO2 25 (23-27mmol/L) 01/28/19 19:00 POC ABG O2 Sat 98 01/28/19 19:00 POC ABG Base Excess 0 ((-2) - (+3)mmol/L) 01/28/19 19:00 21 % 01/28/19 19:00 Sodium 141 mmol/L (137-145) 02/03/19 07:00 Potassium 3.8 mmol/L (3.6-5.0) 02/03/19 07:00 Chloride 104.3 mmol/L (98-107) 02/03/19 07:00 Carbon Dioxide 26 mmol/L (22-30) 02/03/19 07:00 15 mmol/L 02/03/19 07:00 BUN 17 mg/dL (9-20) 02/03/19 07:00 0.6 mg/dL (0.8-1.5) L 02/03/19 07:00 Estimated GFR > 60 ml/min 02/03/19 07:00 28 % 02/03/19 07:00 Glucose 268 mg/dL (75-100) H 02/03/19 07:00 POC Glucose 260 (70-105) H 02/03/19 06:50 Lactic Acid 1.40 mmol/L (0.7-2.0) 01/25/19 18:50 Calcium 8.1 mg/dL (8.4-10.2) L 02/03/19 07:00 Magnesium 1.80 mg/dL (1.7-2.3) 02/01/19 03:50 0.20 mg/dL (0.1-1.2) 01/26/19 04:25 AST 12 units/L (5-40) 01/26/19 04:25 ALT 17 units/L (7-56) 01/26/19 04:25 84 units/L (35-129) 01/26/19 04:25 41.0 umol/L (25-60) 01/31/19 13:26 294 units/L (55-170) H 01/25/19 13:31 CK-MB (CK-2) 2.2 ng/mL (0.0-4.0) 01/25/19 13:31 CK-MB (CK-2) Rel Index 0.7 (0-4) 01/25/19 13:31 0.031 ng/mL (0.00-0.029) H D 01/26/19 04:25 6.4 g/dL (6.3-8.2) 01/26/19 04:25 2.3 g/dL (3.9-5) L 01/26/19 04:25 0.6 % 01/26/19 04:25 Triglycerides 172 mg/dL (2-149) H 01/25/19 13:31 Cholesterol 148 mg/dL (50-199) 01/25/19 13:31 82 mg/dL (50-130) 01/25/19 13:31 30 mg/dL (40-59) L 01/25/19 13:31 4.93 % 01/25/19 13:31 TSH 4.020 mlU/mL (0.270-4.200) 01/25/19 13:31 Free T4 0.89 ng/dL (0.76-1.46) 01/25/19 13:31 Yellow (Yellow) 01/25/19 15:00 Slightly-cloudy (Clear) 01/25/19 15:00 5.0 (5.0-7.0) 01/25/19 15:00 Ur Specific [place] 1.018 (1.003-1.030) 01/25/19 15:00 <15 mg/dl mg/dL (Negative) 01/25/19 15:00 50 mg/dL (Negative) 01/25/19 15:00 Neg mg/dL (Negative) 01/25/19 15:00 Neg (Negative) 01/25/19 15:00 Neg (Negative) 01/25/19 15:00 Neg (Negative) 01/25/19 15:00 4.0 mg/dL (<2.0) 01/25/19 15:00 Ur Leukocyte Esterase Neg (Negative) 01/25/19 15:00 3.0 /HPF (0.0-6.0) 01/25/19 15:00 1.0 /HPF (0.0-6.0) 01/25/19 15:00 U Epithel Cells (Auto) < 1.0 /HPF (0-13.0) 01/25/19 15:00 Hyaline Casts 9 /LPF 01/25/19 15:00 Active Medications - Current Medications Current Medications: Generic Name Dose Route Start Last Admin Trade Name Freq PRN Reason Stop Dose Admin Lipase/Protease/Amylase 1 each 01/26/19 11:[address] 10,500 Unit FEEDTUBE PRN PRN For Clogged Feeding Tube Heparin Sodium (Porcine) 5,000 unit 01/25/19 22:00 02/02/19 21:23 Heparin SUB-Q 5,000 unit Q12HR NIKOLAS Administration Hydralazine HCl 10 mg 02/01/19 18:00 02/03/19 07:05 Apresoline IV 10 mg Q8HR NIKOLAS Administration Dextrose 1,000 mls @ 42 mls/hr 02/02/19 10:00 02/02/19 11:23 D5w IV 42 mls/hr DIRECT NIKOLAS Administration Insulin Glargine 45 units 01/29/19 22:00 02/02/19 21:21 Lantus SUB-Q 45 units QHS NIKOLAS Administration Insulin Human Lispro 0 unit 01/25/19 23:15 02/03/19 07:13 Humalog SUB-Q 4 unit Q4HR NIKOLAS Administration Protocol Potassium Chloride 40 meq 02/02/19 10:00 02/02/19 10:56 Potassium Chloride FEEDTUBE 02/04/19 10:01 40 meq QDAY NIKOLAS Administration Simple Syrup 15 ml 01/26/19 11:47 Simple Syrup FEEDTUBE PRN PRN Hypoglycemia Simple Syrup 30 ml 01/26/19 11:47 Simple Syrup FEEDTUBE PRN PRN Hypoglycemia Sodium Bicarbonate 325 mg 01/26/19 11:47 Sodium Bicarbonate FEEDTUBE PRN PRN For Clogged Feeding Tube Sodium Chloride 10 ml 01/25/19 22:00 02/02/19 21:21 Sodium Chloride Flush Syringe 10 Ml IV 10 ml BID NIKOLAS Administration Sodium Chloride 10 ml 01/25/19 17:46 Sodium Chloride Flush Syringe 10 Ml IV PRN PRN LINE FLUSH Nutrition/Malnutrition Assess - Dietary Evaluation Nutrition/Malnutrition Findings: Nutrition Notes Start: 01/26/19 08:45 Freq: Status: Active Protocol: Document 01/28/19 10:22 TW (Rec: 01/28/19 10:25 TW [id number]) Co-Sign 01/28/19 10:22 LP Nutrition Notes Initial or Follow up Reassessment Current Diagnosis Hypertension Other Pertinent Diagnosis Acute renail failure, Hyperkalemia, AMS, Dehydration Current Diet Nepo 1.8 at 50 ml/hr Labs/Tests Na 159 BUN 75 K: 3.3 BG 310 Pertinent Medications Reviewed Height 5 ft 6 in Weight 74.9 kg [place] Body Weight (kg) 64.54 BMI 26.6 Subjective/Other Information Follow up for TF tolerance. Per RN, pt is tolerating TF well. Observed Nepro 1.8 running at goal rate (50 ml/hr ). Percent of energy/protein needs met: 100%/100% Burn Absent Trauma Absent #1 Nutrition Diagnosis Inadequate oral intake Diagnosis Progress(for reassessment Continues documentation) Is patient on ventilator? No Is Patient Ambulatory and/or Out of Bed No REE-([facility]-confined to bed) [id number] Calculation Used for Recommendations Roshan Nassar Additional Notes PRO: 1.0-1.3 g/kg (75-98 g/day ) Fluid: 1500 mL or per MD Nutrition Intervention Nutrition Support: Nepro 1.8 at 50 mL/hr Flush 100 mL q 4 hr Kcal 2,160 Protein (gm) 97 Fat (gm) 115 Fluid (mL) 872 Goal #1 Continue to meet at least 75% harsh and pro needs via TF Anticipated Discharge Needs: Unable to determine at this time Follow-Up By: 02/04/19 Additional Comments F/u: TF tolerance
[2019-02-03] MEDS: D5W 1,000 ML IV SCH (10:01)
[2019-02-03] MEDS: HEPARIN SUB-Q SCH ×2 (10:04→21:59)
[2019-02-03] MEDS: POTASSIUM CHLORIDE FEEDTUBE SCH (10:04)
[2019-02-03] MEDS: SODIUM CHLORIDE FLUSH SYRINGE 10 ML IV SCH ×2 (10:05→22:00)
--- NOTE | 2019-02-03 11:44 | Progress Note ---
Assessment and Plan Impression * Acute kidney injury * Hyperkalemia * Hypernatremia * History of basal ganglion hemorrhage * History of BPH * Diabetes Recommendations * Patient's renal function has improved * Patient is currently nonoliguric. Condom catheter in place. * Hypernatremia has been corrected. Discontinue IV fluid * Continue free water through feeding tube * Avoid nephrotoxins * Serum potassium is now normal * Shows sign off for now. Please recall if needed Subjective Date of service: 02/03/19 Principal diagnosis: MYRTLE/Hypernatremia Interval history: Patient is currently lethargic. Not answering any questions. IV fluid infusing Objective - Vital Signs Vital signs: Vital Signs - 12hr 02/03/19 02/03/19 00:36 05:22 Temperature 98.3 F 97.9 F Pulse Rate 98 H 99 H Respiratory 22 18 Rate Blood Pressure 150/93 141/92 O2 Sat by Pulse 99 99 Oximetry - General Appearance General appearance: well-developed, well-nourished, appears stated age EENT: PERRL, mucous membranes moist Neck: no JVD, no thyromegaly, no carotid bruit, supple Respiratory: Present: Clear to Ascultation Cardiology: regular, normal heart rate, S1S2, no murmurs Gastrointestinal: normal, normoactive bowel sounds Integumentary: other (1+ edema especially in his upper extremities. Condom catheter in place) - Lab 02/03/19 07:00 02/03/19 07:00 Most recent lab results Calcium 8.1 mg/dL (8.4-10.2) L 02/03/19 07:00 Magnesium 1.80 mg/dL (1.7-2.3) 02/01/19 03:50 Medications & Allergies - Medications Allergies/Adverse Reactions: Allergies Penicillins Allergy (Verified 02/03/19 11:10) Unknown Home Medications: Home Medications Medication Instructions Recorded Confirmed Last Taken Type Citalopram Hydrobromide [celeXA] 20 mg PO DAILY 02/07/16 01/25/19 02/06/16 History Acetaminophen [Tylenol] 650 mg PO Q4HR PRN 01/25/19 01/25/19 Unknown History AtorvaSTATin [Lipitor] 40 mg PO QHS 01/25/19 01/25/19 Unknown History Insulin Lispro [HumaLOG VIAL] See Protocol SUB-Q BID 01/25/19 01/25/19 Unknown History LORazepam [Ativan] 0.5 mg PO Q8H PRN 01/25/19 01/25/19 Unknown History Latanoprost [Xalatan] 1 drop OU HS 01/25/19 01/25/19 Unknown History Lisinopril [Zestril] 20 mg PO QDAY 01/25/19 01/25/19 Unknown History Magnesium Oxide [Mag-Ox] 400 mg PO QDAY 01/25/19 01/25/19 Unknown History Quetiapine Fumarate [SEROquel] 50 mg PO TID 01/25/19 01/25/19 Unknown History Thiamine [Vitamin B-1] 100 mg PO AC 01/25/19 01/25/19 Unknown History Timolol 0.5% [Timoptic] 1 drop OU BID 01/25/19 01/25/19 Unknown History hydroCHLOROthiazide [HCTZ] 25 mg PO QDAY 01/25/19 01/25/19 Unknown History Active Medications: Generic Name Dose Route Start Last Admin Trade Name Freq PRN Reason Stop Dose Admin Lipase/Protease/Amylase 1 each 01/26/19 11:47 Pancreaze 10,500 Unit FEEDTUBE PRN PRN For Clogged Feeding Tube Heparin Sodium (Porcine) 5,000 unit 01/25/19 22:00 02/03/19 10:04 Heparin SUB-Q 5,000 unit Q12HR NIKOLAS Administration Hydralazine HCl 10 mg 02/01/19 18:00 02/03/19 07:05 Apresoline IV 10 mg Q8HR NIKOLAS Administration Dextrose 1,000 mls @ 42 mls/hr 02/02/19 10:00 02/03/19 10:01 D5w IV 42 mls/hr DIRECT NIKOLAS Administration Insulin Glargine 45 units 01/29/19 22:00 02/02/19 21:21 Lantus SUB-Q 45 units QHS NIKOLAS Administration Insulin Human Lispro 0 unit 01/25/19 23:15 02/03/19 10:04 Humalog SUB-Q 268 unit Q4HR NIKOLAS Administration Protocol Potassium Chloride 40 meq 02/02/19 10:00 02/03/19 10:04 Potassium Chloride FEEDTUBE 02/04/19 10:01 40 meq QDAY NIKOLAS Administration Simple Syrup 15 ml 01/26/19 11:47 Simple Syrup FEEDTUBE PRN PRN Hypoglycemia Simple Syrup 30 ml 01/26/19 11:47 Simple Syrup FEEDTUBE PRN PRN Hypoglycemia Sodium Bicarbonate 325 mg 01/26/19 11:47 Sodium Bicarbonate FEEDTUBE PRN PRN For Clogged Feeding Tube Sodium Chloride 10 ml 01/25/19 22:00 02/03/19 10:05 Sodium Chloride Flush Syringe 10 Ml IV 10 ml BID NIKOLAS Administration Sodium Chloride 10 ml 01/25/19 17:46 Sodium Chloride Flush Syringe 10 Ml IV PRN PRN LINE FLUSH
--- NOTE | 2019-02-03 19:10 | Progress Note ---
Assessment and Plan Patient sleeping and resting on 2 litres O2. O2 saturation 99%.No acute respiratory distress.No change in general condition. - Patient Problems (1) Metabolic acidosis with increased anion gap and reduced excretion of inorganic acids Current Visit: Yes Status: Acute Plan to address problem: ABGs showed improvement in Acidosis. (2) IDDM (insulin dependent diabetes mellitus) Current Visit: Yes Status: Chronic Plan to address problem: Management as per primary care. (3) HTN (hypertension) Current Visit: Yes Status: Chronic Qualifiers: Hypertension type: essential hypertension Qualified Code(s): I10 - Esse ntial (primary) hypertension Plan to address problem: Management as per primary care. (4) Acute metabolic encephalopathy Current Visit: Yes Status: Acute Plan to address problem: Management as per primary care. (5) MYRTLE (acute kidney injury) Current Visit: Yes Status: Acute Plan to address problem: Management as per Nephrology. Subjective Date of service: 02/03/19 Principal diagnosis: MYRTLE/Hypernatremia Interval history: Patient sleeping and resting on 2 litres O2. O2 saturation 99%.No acute respiratory distress.No change in general condition. Objective Constitutional: no acute distress, other (Awake, not following commands, not oriented.) Eyes: non-icteric ENT: oropharynx moist Neck: supple, no lymphadenopathy, no JVD, other (no thyromegaly) Effort: normal Ascultation: Bilateral: diminished breath sounds Percussion: Bilateral: not dull Cardiovascular: regular rate and rhythm Gastrointestinal: normoactive bowel sounds, soft, non-tender, non-distended Integumentary: normal Extremities: no cyanosis, no edema, pulses normal, no ischemia or petechiae Neurologic: non-focal exam, pupils equal and round, other (hemiparesis, more awake and alert) Psychiatric: other (Can Not asses due to his mental status.) CBC and BMP: 02/03/19 07:00 02/03/19 07:00 ABG, PT/INR, D-dimer: ABG POC ABG pH 7.479 (7.35-7.45) H 01/28/19 19:00 POC ABG pCO2 32.3 (35-45) L 01/28/19 19:00 POC ABG pO2 93 (80-105) 01/28/19 19:00 POC ABG HCO3 24.0 (22-26 mml/L) 01/28/19 19:00 POC ABG Total CO2 25 (23-27mmol/L) 01/28/19 19:00 POC ABG O2 Sat 98 01/28/19 19:00 Abnormal lab findings: Abnormal Labs 01/25/19 01/25/19 01/25/19 13:31 13:31 13:31 WBC 12.0 H RBC 6.00 H Hgb Hct 47.7 H MCV 80 L MCH 25 L MCHC 31 L RDW 18.1 H Lymph % (Auto) 10.4 L Gillespie % (Auto) 9.3 H Lymph # Gillespie # 1.1 H Baso # Seg Neutrophils % 78.5 H Seg Neuts % (Manual) Nucleated RBC % Seg Neutrophils # 9.5 H POC ABG pH POC ABG pCO2 Sodium 159 H Potassium 6.0 H Chloride 119.0 H Carbon Dioxide BUN 185 H Creatinine 5.7 H D Glucose 433 H POC Glucose Lactic Acid 2.60 H* Calcium Total Creatine Kinase 294 H Troponin T 0.080 H Albumin 2.6 L Triglycerides 172 H HDL Cholesterol 30 L 01/25/19 01/25/19 01/25/19 16:03 16:03 17:11 WBC RBC Hgb Hct MCV MCH MCHC RDW Lymph % (Auto) Gillespie % (Auto) Lymph # Gillespie # Baso # Seg Neutrophils % Seg Neuts % (Manual) Nucleated RBC % Seg Neutrophils # POC ABG pH POC ABG pCO2 Sodium Potassium Chloride Carbon Dioxide BUN Creatinine Glucose POC Glucose 346 H Lactic Acid 2.20 H* 2.30 H* Calcium Total Creatine Kinase Troponin T Albumin Triglycerides HDL Cholesterol 01/25/19 01/25/19 01/26/19 18:50 23:08 00:22 WBC RBC Hgb Hct MCV MCH MCHC RDW Lymph % (Auto) Gillespie % (Auto) Lymph # Gillespie # Baso # Seg Neutrophils % Seg Neuts % (Manual) Nucleated RBC % Seg Neutrophils # POC ABG pH POC ABG pCO2 Sodium 162 H* Potassium Chloride 125.2 H Carbon Dioxide BUN 180 H Creatinine 5.1 H Glucose 438 H POC Glucose 480 H Lactic Acid Calcium Total Creatine Kinase Troponin T 0.045 H D Albumin Triglycerides HDL Cholesterol 01/26/19 01/26/19 01/26/19 02:16 04:25 04:25 WBC RBC 5.21 H Hgb Hct MCV 80 L MCH 25 L MCHC 31 L RDW 18.0 H Lymph % (Auto) 8.2 L Gillespie % (Auto) 7.6 H Lymph # 0.8 L Gillespie # Baso # 0.2 H Seg Neutrophils % 81.6 H Seg Neuts % (Manual) Nucleated RBC % Seg Neutrophils # 8.3 H POC ABG pH POC ABG pCO2 Sodium 158 H Potassium Chloride 122.9 H Carbon Dioxide 21 L BUN 163 H Creatinine 3.9 H Glucose 465 H POC Glucose 462 H Lactic Acid Calcium 7.8 L Total Creatine Kinase Troponin T Albumin 2.3 L Triglycerides HDL Cholesterol 01/26/19 01/26/19 01/26/19 04:25 05:33 10:08 WBC RBC Hgb Hct MCV MCH MCHC RDW Lymph % (Auto) Gillespie % (Auto) Lymph # Gillespie # Baso # Seg Neutrophils % Seg Neuts % (Manual) Nucleated RBC % Seg Neutrophils # POC ABG pH POC ABG pCO2 Sodium 160 H Potassium Chloride 123.9 H Carbon Dioxide 19 L BUN 161 H Creatinine 3.9 H Glucose 468 H POC Glucose 309 H 316 H Lactic Acid Calcium 7.8 L Total Creatine Kinase Troponin T 0.031 H D Albumin Triglycerides HDL Cholesterol 01/26/19 01/26/19 01/27/19 14:30 16:11 03:18 WBC RBC Hgb Hct MCV MCH MCHC RDW Lymph % (Auto) Gillespie % (Auto) Lymph # Gillespie # Baso # Seg Neutrophils % Seg Neuts % (Manual) Nucleated RBC % Seg Neutrophils # POC ABG pH POC ABG pCO2 Sodium 160 H Potassium 3.4 L D Chloride 124.8 H Carbon Dioxide BUN 141 H Creatinine 2.9 H Glucose 126 H POC Glucose 167 H 184 H Lactic Acid Calcium 8.3 L Total Creatine Kinase Troponin T Albumin Triglycerides HDL Cholesterol 01/27/19 01/27/19 01/27/19 06:23 06:33 06:33 WBC RBC Hgb Hct MCV 79 L MCH 25 L MCHC 31 L RDW 17.7 H Lymph % (Auto) Gillespie % (Auto) 8.1 H Lymph # Gillespie # Baso # Seg Neutrophils % 71.1 H Seg Neuts % (Manual) Nucleated RBC % Seg Neutrophils # POC ABG pH POC ABG pCO2 Sodium 157 H Potassium Chloride 121.4 H Carbon Dioxide BUN 117 H Creatinine 1.9 H Glucose 200 H POC Glucose 219 H Lactic Acid Calcium 8.3 L Total Creatine Kinase Troponin T Albumin Triglycerides HDL Cholesterol 01/27/19 01/27/19 01/27/19 11:13 12:46 16:10 WBC RBC Hgb Hct MCV MCH MCHC RDW Lymph % (Auto) Gillespie % (Auto) Lymph # Gillespie # Baso # Seg Neutrophils % Seg Neuts % (Manual) Nucleated RBC % Seg Neutrophils # POC ABG pH POC ABG pCO2 Sodium Potassium Chloride Carbon Dioxide BUN Creatinine Glucose POC Glucose 200 H 205 H 230 H Lactic Acid Calcium Total Creatine Kinase Troponin T Albumin Triglycerides HDL Cholesterol 01/28/19 01/28/19 01/28/19 00:09 06:04 06:04 WBC RBC Hgb 11.5 L Hct MCV 77 L MCH 25 L MCHC RDW 17.4 H Lymph % (Auto) Gillespie % (Auto) 8.7 H Lymph # Gillespie # Baso # Seg Neutrophils % Seg Neuts % (Manual) Nucleated RBC % Seg Neutrophils # POC ABG pH POC ABG pCO2 Sodium 159 H Potassium 3.3 L Chloride 123.1 H Carbon Dioxide BUN 75 H Creatinine Glucose 310 H POC Glucose 177 H Lactic Acid Calcium Total Creatine Kinase Troponin T Albumin Triglycerides HDL Cholesterol 01/28/19 01/28/19 01/28/19 06:42 12:28 15:10 WBC RBC Hgb Hct MCV MCH MCHC RDW Lymph % (Auto) Gillespie % (Auto) Lymph # Gillespie # Baso # Seg Neutrophils % Seg Neuts % (Manual) Nucleated RBC % Seg Neutrophils # POC ABG pH POC ABG pCO2 Sodium Potassium Chloride Carbon Dioxide BUN Creatinine Glucose POC Glucose 384 H 280 H 282 H Lactic Acid Calcium Total Creatine Kinase Troponin T Albumin Triglycerides HDL Cholesterol 01/28/19 01/28/19 01/28/19 18:54 19:00 21:44 WBC RBC Hgb Hct MCV MCH MCHC RDW Lymph % (Auto) Gillespie % (Auto) Lymph # Gillespie # Baso # Seg Neutrophils % Seg Neuts % (Manual) Nucleated RBC % Seg Neutrophils # POC ABG pH 7.479 H POC ABG pCO2 32.3 L Sodium Potassium Chloride Carbon Dioxide BUN Creatinine Glucose POC Glucose 189 H 179 H Lactic Acid Calcium Total Creatine Kinase Troponin T Albumin Triglycerides HDL Cholesterol 01/29/19 01/29/19 01/29/19 01:48 04:37 05:38 WBC RBC Hgb Hct MCV MCH MCHC RDW Lymph % (Auto) Gillespie % (Auto) Lymph # Gillespie # Baso # Seg Neutrophils % Seg Neuts % (Manual) Nucleated RBC % Seg Neutrophils # POC ABG pH POC ABG pCO2 Sodium 164 H* Potassium 3.5 L Chloride 128.9 H Carbon Dioxide BUN 54 H Creatinine Glucose 271 H POC Glucose 238 H 248 H Lactic Acid Calcium Total Creatine Kinase Troponin T Albumin Triglycerides HDL Cholesterol 01/29/19 01/29/19 01/29/19 10:26 13:19 17:57 WBC RBC Hgb Hct MCV MCH MCHC RDW Lymph % (Auto) Gillespie % (Auto) Lymph # Gillespie # Baso # Seg Neutrophils % Seg Neuts % (Manual) Nucleated RBC % Seg Neutrophils # POC ABG pH POC ABG pCO2 Sodium Potassium Chloride Carbon Dioxide BUN Creatinine Glucose POC Glucose 288 H 301 H 242 H Lactic Acid Calcium Total Creatine Kinase Troponin T Albumin Triglycerides HDL Cholesterol 01/29/19 01/30/19 01/30/19 20:25 01:51 05:23 WBC RBC Hgb Hct MCV MCH MCHC RDW Lymph % (Auto) Gillespie % (Auto) Lymph # Gillespie # Baso # Seg Neutrophils % Seg Neuts % (Manual) Nucleated RBC % Seg Neutrophils # POC ABG pH POC ABG pCO2 Sodium Potassium Chloride Carbon Dioxide BUN Creatinine Glucose POC Glucose 223 H 229 H 218 H Lactic Acid Calcium Total Creatine Kinase Troponin T Albumin Triglycerides HDL Cholesterol 01/30/19 01/30/19 01/30/19 07:16 10:26 14:24 WBC RBC Hgb Hct MCV MCH MCHC RDW Lymph % (Auto) Gillespie % (Auto) Lymph # Gillespie # Baso # Seg Neutrophils % Seg Neuts % (Manual) Nucleated RBC % Seg Neutrophils # POC ABG pH POC ABG pCO2 Sodium 155 H D Potassium 3.2 L Chloride 118.4 H Carbon Dioxide BUN 40 H Creatinine Glucose 246 H POC Glucose 257 H 240 H Lactic Acid Calcium 8.3 L Total Creatine Kinase Troponin T Albumin Triglycerides HDL Cholesterol 01/30/19 01/30/19 01/30/19 18:30 20:44 23:38 WBC RBC Hgb Hct MCV MCH MCHC RDW Lymph % (Auto) Gillespie % (Auto) Lymph # Gillespie # Baso # Seg Neutrophils % Seg Neuts % (Manual) Nucleated RBC % Seg Neutrophils # POC ABG pH POC ABG pCO2 Sodium Potassium Chloride Carbon Dioxide BUN Creatinine Glucose POC Glucose 327 H 300 H 279 H Lactic Acid Calcium Total Creatine Kinase Troponin T Albumin Triglycerides HDL Cholesterol 01/31/19 01/31/19 01/31/19 01:57 04:42 04:42 WBC RBC Hgb 10.1 L Hct 31.7 L MCV 79 L MCH 25 L MCHC RDW 17.4 H Lymph % (Auto) Gillespie % (Auto) Lymph # Gillespie # Baso # Seg Neutrophils % Seg Neuts % (Manual) 75.0 H Nucleated RBC % 2.0 H Seg Neutrophils # POC ABG pH POC ABG pCO2 Sodium 147 H D Potassium 3.2 L Chloride 110.0 H Carbon Dioxide BUN 28 H Creatinine Glucose 261 H POC Glucose 270 H Lactic Acid Calcium 7.8 L Total Creatine Kinase Troponin T Albumin Triglycerides HDL Cholesterol 01/31/19 01/31/19 01/31/19 05:10 08:46 17:10 WBC RBC Hgb Hct MCV MCH MCHC RDW Lymph % (Auto) Gillespie % (Auto) Lymph # Gillespie # Baso # Seg Neutrophils % Seg Neuts % (Manual) Nucleated RBC % Seg Neutrophils # POC ABG pH POC ABG pCO2 Sodium Potassium Chloride Carbon Dioxide BUN Creatinine Glucose POC Glucose 239 H 242 H 298 H Lactic Acid Calcium Total Creatine Kinase Troponin T Albumin Triglycerides HDL Cholesterol 01/31/19 02/01/19 02/01/19 21:10 02:17 03:50 WBC RBC Hgb Hct MCV MCH MCHC RDW Lymph % (Auto) Gillespie % (Auto) Lymph # Gillespie # Baso # Seg Neutrophils % Seg Neuts % (Manual) Nucleated RBC % Seg Neutrophils # POC ABG pH POC ABG pCO2 Sodium 146 H Potassium Chloride 110.9 H Carbon Dioxide 21 L BUN 26 H Creatinine 0.7 L Glucose 240 H POC Glucose 304 H 240 H Lactic Acid Calcium 8.3 L Total Creatine Kinase Troponin T Albumin Triglycerides HDL Cholesterol 02/01/19 02/01/19 02/01/19 03:50 05:35 10:11 WBC RBC Hgb 10.2 L Hct 31.4 L MCV 78 L MCH 25 L MCHC RDW 16.9 H Lymph % (Auto) Gillespie % (Auto) Lymph # Gillespie # Baso # Seg Neutrophils % Seg Neuts % (Manual) 78.0 H Nucleated RBC % Seg Neutrophils # POC ABG pH POC ABG pCO2 Sodium Potassium Chloride Carbon Dioxide BUN Creatinine Glucose POC Glucose 208 H 186 H Lactic Acid Calcium Total Creatine Kinase Troponin T Albumin Triglycerides HDL Cholesterol 02/01/19 02/01/19 02/01/19 14:35 17:25 20:44 WBC RBC Hgb Hct MCV MCH MCHC RDW Lymph % (Auto) Gillespie % (Auto) Lymph # Gillespie # Baso # Seg Neutrophils % Seg Neuts % (Manual) Nucleated RBC % Seg Neutrophils # POC ABG pH POC ABG pCO2 Sodium Potassium Chloride Carbon Dioxide BUN Creatinine Glucose POC Glucose 222 H 193 H 204 H Lactic Acid Calcium Total Creatine Kinase Troponin T Albumin Triglycerides HDL Cholesterol 02/02/19 02/02/19 02/02/19 07:17 07:26 12:11 WBC RBC Hgb Hct MCV MCH MCHC RDW Lymph % (Auto) Gillespie % (Auto) Lymph # Gillespie # Baso # Seg Neutrophils % Seg Neuts % (Manual) Nucleated RBC % Seg Neutrophils # POC ABG pH POC ABG pCO2 Sodium Potassium 3.3 L D Chloride 107.8 H Carbon Dioxide BUN Creatinine 0.6 L Glucose 117 H POC Glucose 110 H 115 H Lactic Acid Calcium 7.9 L Total Creatine Kinase Troponin T Albumin Triglycerides HDL Cholesterol 02/02/19 02/02/19 02/02/19 16:10 18:30 18:50 WBC RBC Hgb Hct MCV MCH MCHC RDW Lymph % (Auto) Gillespie % (Auto) Lymph # Jarod # Baso # Seg Neutrophils % Seg Neuts % (Manual) Nucleated RBC % Seg Neutrophils # POC ABG pH POC ABG pCO2 Sodium Potassium Chloride Carbon Dioxide BUN Creatinine Glucose POC Glucose 182 H 200 H 198 H Lactic Acid Calcium Total Creatine Kinase Troponin T Albumin Triglycerides HDL Cholesterol 02/03/19 02/03/19 02/03/19 00:40 06:50 07:00 WBC RBC Hgb Hct MCV MCH MCHC RDW Lymph % (Auto) Gillespie % (Auto) Lymph # Gillespie # Baso # Seg Neutrophils % Seg Neuts % (Manual) Nucleated RBC % Seg Neutrophils # POC ABG pH POC ABG pCO2 Sodium Potassium Chloride Carbon Dioxide BUN Creatinine 0.6 L Glucose 268 H POC Glucose 212 H 260 H Lactic Acid Calcium 8.1 L Total Creatine Kinase Troponin T Albumin Triglycerides HDL Cholesterol 02/03/19 02/03/19 02/03/19 07:00 08:23 12:49 WBC RBC Hgb 9.7 L Hct 29.7 L MCV 76 L MCH 25 L MCHC RDW 17.0 H Lymph % (Auto) Gillespie % (Auto) Lymph # Gillespie # Baso # Seg Neutrophils % Seg Neuts % (Manual) Nucleated RBC % Seg Neutrophils # POC ABG pH POC ABG pCO2 Sodium Potassium Chloride Carbon Dioxide BUN Creatinine Glucose POC Glucose 275 H 198 H Lactic Acid Calcium Total Creatine Kinase Troponin T Albumin Triglycerides HDL Cholesterol Allied health notes reviewed: nursing
[2019-02-03] MEDS ORDERED: APRESOLINE IV PRN (22:00)
[2019-02-03] MEDS: LANTUS SUB-Q SCH (22:00)
--- NOTE | 2019-02-04 02:00 | XRay Report ---
PROCEDURE: XR ABDOMEN 1V AP TECHNIQUE: A portable supine view of the abdomen was obtained. HISTORY: to confrim tube placement COMPARISONS: 01/26/2019 FINDINGS: The tip of the Dobbhoff tube is at the GE junction. It has retracted since the prior study. The bowel gas pattern otherwise is unremarkable. There is a shunt catheter: The pelvis. IMPRESSION: The tip of the Dobbhoff tube is at the GE junction. Needs be advanced at least 10 to 15 cm.. This document is electronically signed by Jeffery Clancy MD., Feb 04 2019 01:58:15 AM ET
--- NOTE | 2019-02-04 02:57 | XRay Report ---
PROCEDURE: PORTABLE ABDOMEN TECHNIQUE: AP supine portable radiograph of the abdomen was obtained at 02/04/2019 0:35 [employer]. HISTORY: NG tube placement COMPARISONS: None . FINDINGS: Bowel gas pattern: Nonobstructive . Masses or calcifications: None . Bony structures: Normal . Other: NG tube is in the stomach. . IMPRESSION: No acute abnormality. NG tube is in the stomach. This document is electronically signed by Fernie Bah MD., Feb 04 2019 02:55:08 AM ET
[2019-02-04] MEDS: HumaLOG SUB-Q SCH ×6 (03:03→21:59)
--- NOTE | 2019-02-04 09:26 | Progress Note ---
Assessment and Plan Acute metabolic encephalopathy MYRTLE (acute kidney injury) Acute hypernatremia, resolved Hyperkalemia Metabolic acidosis with increased anion gap and reduced excretion of inorganic acids Sepsis IDDM (insulin dependent diabetes mellitus) HTN (hypertension) HLD (hyperlipidemia) BPH (benign prostatic hyperplasia) s/p ICH with right [employer] shut in place - supplemental oxygen and wean to keep O2 sat's > 90% - bronchodilators with pulmonary hygiene per RT - aspiration precautions - enteral nutrition as tolerated - continue glycemic control with SSI for target BG < 180mg/dl -VTE prophylaxis -Awaiting MRI brain Subjective Date of service: 02/04/19 Principal diagnosis: MYRTLE/Hypernatremia Interval history: Patient is seen today for: Acute metabolic encephalopathy; MYRTLE (acute kidney injury); Acute hypernatremia; Hyperkalemia; Metabolic acidosis with increased anion gap and reduced excretion of inorganic acids; Severe Sepsis; IDDM (insulin dependent diabetes mellitus) Seen and examined at bedside; 24hour events reviewed; nursing and respiratory care staff consulted; no adverse overnight events reported to me; resting peacefully in bed; more somnolent; tolerating tube feeds; remains on suppleme ntal oxygen; no emesis or overt aspiration Objective Vital Signs - 12hr 02/03/19 02/03/19 02/04/19 22:00 23:37 05:04 Temperature 98.2 F 97.8 F Pulse Rate 95 H 92 H 98 H Respiratory 18 18 Rate Blood Pressure 132/91 128/84 O2 Sat by Pulse 97 100 Oximetry 02/04/19 07:53 Temperature 98.9 F Pulse Rate 96 H Respiratory 16 Rate Blood Pressure 140/91 O2 Sat by Pulse 100 Oximetry Constitutional: no acute distress, other (Awake, not following commands,) Eyes: non-icteric ENT: oropharynx moist Neck: supple, no lymphadenopathy, no JVD, other (no thyromegaly) Effort: normal Ascultation: Bilateral: clear, diminished breath sounds Percussion: Bilateral: not dull Cardiovascular: regular rate and rhythm Gastrointestinal: normoactive bowel sounds, soft, non-tender, non-distended Integumentary: normal Extremities: no cyanosis, no edema, pulses normal, no ischemia or petechiae Neurologic: non-focal exam, pupils equal and round, other (hemiparesis, more awake and alert) Psychiatric: other (Can Not asses due to his mental status.) CBC and BMP: 02/03/19 07:00 02/03/19 07:00 ABG, PT/INR, D-dimer: ABG POC ABG pH 7.479 (7.35-7.45) H 01/28/19 19:00 POC ABG pCO2 32.3 (35-45) L 01/28/19 19:00 POC ABG pO2 93 (80-105) 01/28/19 19:00 POC ABG HCO3 24.0 (22-26 mml/L) 01/28/19 19:00 POC ABG Total CO2 25 (23-27mmol/L) 01/28/19 19:00 POC ABG O2 Sat 98 01/28/19 19:00 Abnormal lab findings: Abnormal Labs 01/25/19 01/25/19 01/25/19 13:31 13:31 13:31 WBC 12.0 H RBC 6.00 H Hgb Hct 47.7 H MCV 80 L MCH 25 L MCHC 31 L RDW 18.1 H Lymph % (Auto) 10.4 L Nye % (Auto) 9.3 H Lymph # Nye # 1.1 H Baso # Seg Neutrophils % 78.5 H Seg Neuts % (Manual) Nucleated RBC % Seg Neutrophils # 9.5 H POC ABG pH POC ABG pCO2 Sodium 159 H Potassium 6.0 H Chloride 119.0 H Carbon Dioxide BUN 185 H Creatinine 5.7 H D Glucose 433 H POC Glucose Lactic Acid 2.60 H* Calcium Total Creatine Kinase 294 H Troponin T 0.080 H Albumin 2.6 L Triglycerides 172 H HDL Cholesterol 30 L 01/25/19 01/25/19 01/25/19 16:03 16:03 17:11 WBC RBC Hgb Hct MCV MCH MCHC RDW Lymph % (Auto) Nye % (Auto) Lymph # Nye # Baso # Seg Neutrophils % Seg Neuts % (Manual) Nucleated RBC % Seg Neutrophils # POC ABG pH POC ABG pCO2 Sodium Potassium Chloride Carbon Dioxide BUN Creatinine Glucose POC Glucose 346 H Lactic Acid 2.20 H* 2.30 H* Calcium Total Creatine Kinase Troponin T Albumin Triglycerides HDL Cholesterol 01/25/19 01/25/19 01/26/19 18:50 23:08 00:22 WBC RBC Hgb Hct MCV MCH MCHC RDW Lymph % (Auto) Nye % (Auto) Lymph # Nye # Baso # Seg Neutrophils % Seg Neuts % (Manual) Nucleated RBC % Seg Neutrophils # POC ABG pH POC ABG pCO2 Sodium 162 H* Potassium Chloride 125.2 H Carbon Dioxide BUN 180 H Creatinine 5.1 H Glucose 438 H POC Glucose 480 H Lactic Acid Calcium Total Creatine Kinase Troponin T 0.045 H D Albumin Triglycerides HDL Cholesterol 01/26/19 01/26/19 01/26/19 02:16 04:25 04:25 WBC RBC 5.21 H Hgb Hct MCV 80 L MCH 25 L MCHC 31 L RDW 18.0 H Lymph % (Auto) 8.2 L Nye % (Auto) 7.6 H Lymph # 0.8 L Nye # Baso # 0.2 H Seg Neutrophils % 81.6 H Seg Neuts % (Manual) Nucleated RBC % Seg Neutrophils # 8.3 H POC ABG pH POC ABG pCO2 Sodium 158 H Potassium Chloride 122.9 H Carbon Dioxide 21 L BUN 163 H Creatinine 3.9 H Glucose 465 H POC Glucose 462 H Lactic Acid Calcium 7.8 L Total Creatine Kinase Troponin T Albumin 2.3 L Triglycerides HDL Cholesterol 01/26/19 01/26/19 01/26/19 04:25 05:33 10:08 WBC RBC Hgb Hct MCV MCH MCHC RDW Lymph % (Auto) Nye % (Auto) Lymph # Nye # Baso # Seg Neutrophils % Seg Neuts % (Manual) Nucleated RBC % Seg Neutrophils # POC ABG pH POC ABG pCO2 Sodium 160 H Potassium Chloride 123.9 H Carbon Dioxide 19 L BUN 161 H Creatinine 3.9 H Glucose 468 H POC Glucose 309 H 316 H Lactic Acid Calcium 7.8 L Total Creatine Kinase Troponin T 0.031 H D Albumin Triglycerides HDL Cholesterol 01/26/19 01/26/19 01/27/19 14:30 16:11 03:18 WBC RBC Hgb Hct MCV MCH MCHC RDW Lymph % (Auto) Nye % (Auto) Lymph # Nye # Baso # Seg Neutrophils % Seg Neuts % (Manual) Nucleated RBC % Seg Neutrophils # POC ABG pH POC ABG pCO2 Sodium 160 H Potassium 3.4 L D Chloride 124.8 H Carbon Dioxide BUN 141 H Creatinine 2.9 H Glucose 126 H POC Glucose 167 H 184 H Lactic Acid Calcium 8.3 L Total Creatine Kinase Troponin T Albumin Triglycerides HDL Cholesterol 01/27/19 01/27/1919 06:23 06:33 06:33 WBC RBC Hgb Hct MCV 79 L MCH 25 L MCHC 31 L RDW 17.7 H Lymph % (Auto) Nye % (Auto) 8.1 H Lymph # Nye # Baso # Seg Neutrophils % 71.1 H Seg Neuts % (Manual) Nucleated RBC % Seg Neutrophils # POC ABG pH POC ABG pCO2 Sodium 157 H Potassium Chloride 121.4 H Carbon Dioxide BUN 117 H Creatinine 1.9 H Glucose 200 H POC Glucose 219 H Lactic Acid Calcium 8.3 L Total Creatine Kinase Troponin T Albumin Triglycerides HDL Cholesterol 01/27/19 01/27/19 01/27/19 11:13 12:46 16:10 WBC RBC Hgb Hct MCV MCH MCHC RDW Lymph % (Auto) Nye % (Auto) Lymph # Nye # Baso # Seg Neutrophils % Seg Neuts % (Manual) Nucleated RBC % Seg Neutrophils # POC ABG pH POC ABG pCO2 Sodium Potassium Chloride Carbon Dioxide BUN Creatinine Glucose POC Glucose 200 H 205 H 230 H Lactic Acid Calcium Total Creatine Kinase Troponin T Albumin Triglycerides HDL Cholesterol 01/28/19 01/28/19 01/28/19 00:09 06:04 06:04 WBC RBC Hgb 11.5 L Hct MCV 77 L MCH 25 L MCHC RDW 17.4 H Lymph % (Auto) Nye % (Auto) 8.7 H Lymph # Nye # Baso # Seg Neutrophils % Seg Neuts % (Manual) Nucleated RBC % Seg Neutrophils # POC ABG pH POC ABG pCO2 Sodium 159 H Potassium 3.3 L Chloride 123.1 H Carbon Dioxide BUN 75 H Creatinine Glucose 310 H POC Glucose 177 H Lactic Acid Calcium Total Creatine Kinase Troponin T Albumin Triglycerides HDL Cholesterol 01/28/19 01/28/19 01/28/19 06:42 12:28 15:10 WBC RBC Hgb Hct MCV MCH MCHC RDW Lymph % (Auto) Nye % (Auto) Lymph # Nye # Baso # Seg Neutrophils % Seg Neuts % (Manual) Nucleated RBC % Seg Neutrophils # POC ABG pH POC ABG pCO2 Sodium Potassium Chloride Carbon Dioxide BUN Creatinine Glucose POC Glucose 384 H 280 H 282 H Lactic Acid Calcium Total Creatine Kinase Troponin T Albumin Triglycerides HDL Cholesterol 01/28/19 01/28/19 01/28/19 18:54 19:00 21:44 WBC RBC Hgb Hct MCV MCH MCHC RDW Lymph % (Auto) Nye % (Auto) Lymph # Nye # Baso # Seg Neutrophils % Seg Neuts % (Manual) Nucleated RBC % Seg Neutrophils # POC ABG pH 7.479 H POC ABG pCO2 32.3 L Sodium Potassium Chloride Carbon Dioxide BUN Creatinine Glucose POC Glucose 189 H 179 H Lactic Acid Calcium Total Creatine Kinase Troponin T Albumin Triglycerides HDL Cholesterol 01/29/19 01/29/19 01/29/19 01:48 04:37 05:38 WBC RBC Hgb Hct MCV MCH MCHC RDW Lymph % (Auto) Nye % (Auto) Lymph # Nye # Baso # Seg Neutrophils % Seg Neuts % (Manual) Nucleated RBC % Seg Neutrophils # POC ABG pH POC ABG pCO2 Sodium 164 H* Potassium 3.5 L Chloride 128.9 H Carbon Dioxide BUN 54 H Creatinine Glucose 271 H POC Glucose 238 H 248 H Lactic Acid Calcium Total Creatine Kinase Troponin T Albumin Triglycerides HDL Cholesterol 01/29/19 01/29/19 01/29/19 10:26 13:19 17:57 WBC RBC Hgb Hct MCV MCH MCHC RDW Lymph % (Auto) Nye % (Auto) Lymph # Nye # Baso # Seg Neutrophils % Seg Neuts % (Manual) Nucleated RBC % Seg Neutrophils # POC ABG pH POC ABG pCO2 Sodium Potassium Chloride Carbon Dioxide BUN Creatinine Glucose POC Glucose 288 H 301 H 242 H Lactic Acid Calcium Total Creatine Kinase Troponin T Albumin Triglycerides HDL Cholesterol 01/29/19 01/30/19 01/30/19 20:25 01:51 05:23 WBC RBC Hgb Hct MCV MCH MCHC RDW Lymph % (Auto) Nye % (Auto) Lymph # Nye # Baso # Seg Neutrophils % Seg Neuts % (Manual) Nucleated RBC % Seg Neutrophils # POC ABG pH POC ABG pCO2 Sodium Potassium Chloride Carbon Dioxide BUN Creatinine Glucose POC Glucose 223 H 229 H 218 H Lactic Acid Calcium Total Creatine Kinase Troponin T Albumin Triglycerides HDL Cholesterol 01/30/19 01/30/19 01/30/19 07:16 10:26 14:24 WBC RBC Hgb Hct MCV MCH MCHC RDW Lymph % (Auto) Nye % (Auto) Lymph # Nye # Baso # Seg Neutrophils % Seg Neuts % (Manual) Nucleated RBC % Seg Neutrophils # POC ABG pH POC ABG pCO2 Sodium 155 H D Potassium 3.2 L Chloride 118.4 H Carbon Dioxide BUN 40 H Creatinine Glucose 246 H POC Glucose 257 H 240 H Lactic Acid Calcium 8.3 L Total Creatine Kinase Troponin T Albumin Triglycerides HDL Cholesterol 01/30/19 01/30/19 01/30/19 18:30 20:44 23:38 WBC RBC Hgb Hct MCV MCH MCHC RDW Lymph % (Auto) Nye % (Auto) Lymph # Nye # Baso # Seg Neutrophils % Seg Neuts % (Manual) Nucleated RBC % Seg Neutrophils # POC ABG pH POC ABG pCO2 Sodium Potassium Chloride Carbon Dioxide BUN Creatinine Glucose POC Glucose 327 H 300 H 279 H Lactic Acid Calcium Total Creatine Kinase Troponin T Albumin Triglycerides HDL Cholesterol 01/31/19 01/31/19 01/31/19 01:57 04:42 04:42 WBC RBC Hgb 10.1 L Hct 31.7 L MCV 79 L MCH 25 L MCHC RDW 17.4 H Lymph % (Auto) Nye % (Auto) Lymph # Nye # Baso # Seg Neutrophils % Seg Neuts % (Manual) 75.0 H Nucleated RBC % 2.0 H Seg Neutrophils # POC ABG pH POC ABG pCO2 Sodium 147 H D Potassium 3.2 L Chloride 110.0 H Carbon Dioxide BUN 28 H Creatinine Glucose 261 H POC Glucose 270 H Lactic Acid Calcium 7.8 L Total Creatine Kinase Troponin T Albumin Triglycerides HDL Cholesterol 01/31/19 01/31/19 01/31/19 05:10 08:46 17:10 WBC RBC Hgb Hct MCV MCH MCHC RDW Lymph % (Auto) Nye % (Auto) Lymph # Nye # Baso # Seg Neutrophils % Seg Neuts % (Manual) Nucleated RBC % Seg Neutrophils # POC ABG pH POC ABG pCO2 Sodium Potassium Chloride Carbon Dioxide BUN Creatinine Glucose POC Glucose 239 H 242 H 298 H Lactic Acid Calcium Total Creatine Kinase Troponin T Albumin Triglycerides HDL Cholesterol 01/31/19 02/01/19 02/01/19 21:10 02:17 03:50 WBC RBC Hgb Hct MCV MCH MCHC RDW Lymph % (Auto) Nye % (Auto) Lymph # Nye # Baso # Seg Neutrophils % Seg Neuts % (Manual) Nucleated RBC % Seg Neutrophils # POC ABG pH POC ABG pCO2 Sodium 146 H Potassium Chloride 110.9 H Carbon Dioxide 21 L BUN 26 H Creatinine 0.7 L Glucose 240 H POC Glucose 304 H 240 H Lactic Acid Calcium 8.3 L Total Creatine Kinase Troponin T Albumin Triglycerides HDL Cholesterol 02/01/19 02/01/19 02/01/19 03:50 05:35 10:11 WBC RBC Hgb 10.2 L Hct 31.4 L MCV 78 L MCH 25 L MCHC RDW 16.9 H Lymph % (Auto) Nye % (Auto) Lymph # Nye # Baso # Seg Neutrophils % Seg Neuts % (Manual) 78.0 H Nucleated RBC % Seg Neutrophils # POC ABG pH POC ABG pCO2 Sodium Potassium Chloride Carbon Dioxide BUN Creatinine Glucose POC Glucose 208 H 186 H Lactic Acid Calcium Total Creatine Kinase Troponin T Albumin Triglycerides HDL Cholesterol 02/01/19 02/01/19 02/01/19 14:35 17:25 20:44 WBC RBC Hgb Hct MCV MCH MCHC RDW Lymph % (Auto) Nye % (Auto) Lymph # Nye # Baso # Seg Neutrophils % Seg Neuts % (Manual) Nucleated RBC % Seg Neutrophils # POC ABG pH POC ABG pCO2 Sodium Potassium Chloride Carbon Dioxide BUN Creatinine Glucose POC Glucose 222 H 193 H 204 H Lactic Acid Calcium Total Creatine Kinase Troponin T Albumin Triglycerides HDL Cholesterol 02/02/19 02/02/19 02/02/19 07:17 07:26 12:11 WBC RBC Hgb Hct MCV MCH MCHC RDW Lymph % (Auto) Nye % (Auto) Lymph # Nye # Baso # Seg Neutrophils % Seg Neuts % (Manual) Nucleated RBC % Seg Neutrophils # POC ABG pH POC ABG pCO2 Sodium Potassium 3.3 L D Chloride 107.8 H Carbon Dioxide BUN Creatinine 0.6 L Glucose 117 H POC Glucose 110 H 115 H Lactic Acid Calcium 7.9 L Total Creatine Kinase Troponin T Albumin Triglycerides HDL Cholesterol 02/02/19 02/02/19 02/02/19 16:10 18:30 18:50 WBC RBC Hgb Hct MCV MCH MCHC RDW Lymph % (Auto) Nye % (Auto) Lymph # Nye # Baso # Seg Neutrophils % Seg Neuts % (Manual) Nucleated RBC % Seg Neutrophils # POC ABG pH POC ABG pCO2 Sodium Potassium Chloride Carbon Dioxide BUN Creatinine Glucose POC Glucose 182 H 200 H 198 H Lactic Acid Calcium Total Creatine Kinase Troponin T Albumin Triglycerides HDL Cholesterol 02/03/19 02/03/19 02/03/19 00:40 06:50 07:00 WBC RBC Hgb Hct MCV MCH MCHC RDW Lymph % (Auto) Nye % (Auto) Lymph # Nye # Baso # Seg Neutrophils % Seg Neuts % (Manual) Nucleated RBC % Seg Neutrophils # POC ABG pH POC ABG pCO2 Sodium Potassium Chloride Carbon Dioxide BUN Creatinine 0.6 L Glucose 268 H POC Glucose 212 H 260 H Lactic Acid Calcium 8.1 L Total Creatine Kinase Troponin T Albumin Triglycerides HDL Cholesterol 02/03/19 02/03/19 02/03/19 07:00 08:23 12:49 WBC RBC Hgb 9.7 L Hct 29.7 L MCV 76 L MCH 25 L MCHC RDW 17.0 H Lymph % (Auto) Nye % (Auto) Lymph # Nye # Baso # Seg Neutrophils % Seg Neuts % (Manual) Nucleated RBC % Seg Neutrophils # POC ABG pH POC ABG pCO2 Sodium Potassium Chloride Carbon Dioxide BUN Creatinine Glucose POC Glucose 275 H 198 H Lactic Acid Calcium Total Creatine Kinase Troponin T Albumin Triglycerides HDL Cholesterol 02/03/19 02/04/19 02/04/19 21:50 02:23 05:17 WBC RBC Hgb Hct MCV MCH MCHC RDW Lymph % (Auto) Nye % (Auto) Lymph # Nye # Baso # Seg Neutrophils % Seg Neuts % (Manual) Nucleated RBC % Seg Neutrophils # POC ABG pH POC ABG pCO2 Sodium Potassium Chloride Carbon Dioxide BUN Creatinine Glucose POC Glucose 153 H 139 H 180 H Lactic Acid Calcium Total Creatine Kinase Troponin T Albumin Triglycerides HDL Cholesterol Allied health notes reviewed: nursing
[2019-02-04] MEDS: POTASSIUM CHLORIDE FEEDTUBE SCH (09:37)
[2019-02-04] MEDS: HEPARIN SUB-Q SCH ×2 (09:37→21:58)
[2019-02-04] MEDS: SODIUM CHLORIDE FLUSH SYRINGE 10 ML IV SCH ×2 (10:00→21:59)
--- NOTE | 2019-02-04 11:16 | Progress Note ---
Assessment and Plan Assessment and plan: Metabolic encephalopathy. Patient remains confused requiring restraints. Continue to treat underlying causes of hypernatremia. Neurology following. Head CT negative. Obtain MRI Brain Hypernatremia. Now resolved. Acute renal failure/MYRTLE. Resolved Dysphagia, Will talk to mother about PEG tube Hyperlipidemia. Continue statins. Hypokalemia. Replete potassium as needed. Hypertension. Continue antihypertensive medications. Diabetes mellitus type 2. Continue Accu-Cheks qac hs, Sliding scale regular insulin and Lantus History Interval history: Altered mental status pulled out NG tube yesterday, replaced overnight Hospitalist Physical - Physical exam Narrative exam: Gen: Not in acute distress, lying in bed HEENT: Normocephalic, atraumatic Neck: supple, no JVD Heart: S1 and S2 reg, no murmurs, rubs or gallop Lungs: Clear, no crackles Abd: soft, non tender, non distended, normal BS Ext: No edema, no clubbing, no cyanosis, Neuro: Lethargic - Constitutional Vitals: Temp Pulse Resp BP Pulse Ox 98.9 F 96 H 16 140/91 100 02/04/19 07:53 02/04/19 07:53 02/04/19 07:53 02/04/19 07:53 02/04/19 07:53 General appearance: Present: no acute distress Results - Labs CBC & Chem 7: 02/03/19 07:00 02/03/19 07:00 Labs: Laboratory Last Values WBC 6.2 K/mm3 (4.5-11.0) 02/03/19 07:00 RBC 3.91 M/mm3 (3.65-5.03) 02/03/19 07:00 Hgb 9.7 gm/dl (11.8-15.2) L 02/03/19 07:00 Hct 29.7 % (35.5-45.6) L 02/03/19 07:00 MCV 76 fl (84-94) L 02/03/19 07:00 MCH 25 pg (28-32) L 02/03/19 07:00 MCHC 33 % (32-34) 02/03/19 07:00 RDW 17.0 % (13.2-15.2) H 02/03/19 07:00 Plt Count 195 K/mm3 (140-440) 02/03/19 07:00 Lymph % (Auto) 19.1 % (13.4-35.0) 01/28/19 06:04 [place] % (Auto) 8.7 % (0.0-7.3) H 01/28/19 06:04 Eos % (Auto) 3.1 % (0.0-4.3) 01/28/19 06:04 Baso % (Auto) 0.3 % (0.0-1.8) 01/28/19 06:04 Lymph # 1.3 K/mm3 (1.2-5.4) 01/28/19 06:04 Barber # 0.6 K/mm3 (0.0-0.8) 01/28/19 06:04 Eos # 0.2 K/mm3 (0.0-0.4) 01/28/19 06:04 Baso # 0.0 K/mm3 (0.0-0.1) 01/28/19 06:04 Add Manual Diff Complete 02/01/19 03:50 Total Counted 100 02/01/19 03:50 Seg Neutrophils % 68.8 % (40.0-70.0) 01/28/19 06:04 Seg Neuts % (Manual) 78.0 % (40.0-70.0) H 02/01/19 03:50 1.0 % 02/01/19 03:50 16.0 % (13.4-35.0) 02/01/19 03:50 Reactive Lymphs % (Man) 0 % 02/01/19 03:50 1.0 % (0.0-7.3) 02/01/19 03:50 4.0 % (0.0-4.3) 02/01/19 03:50 0 % (0.0-1.8) 02/01/19 03:50 0 % 02/01/19 03:50 0 % 02/01/19 03:50 0 % 02/01/19 03:50 0 % 02/01/19 03:50 Nucleated RBC % Not Reportable 02/01/19 03:50 Seg Neutrophils # 4.8 K/mm3 (1.8-7.7) 01/28/19 06:04 Seg Neutrophils # Man 6.4 K/mm3 (1.8-7.7) 02/01/19 03:50 Band Neutrophils # 0.1 K/mm3 02/01/19 03:50 1.3 K/mm3 (1.2-5.4) 02/01/19 03:50 Abs React Lymphs (Man) 0.0 K/mm3 02/01/19 03:50 0.1 K/mm3 (0.0-0.8) 02/01/19 03:50 0.3 K/mm3 (0.0-0.4) 02/01/19 03:50 0.0 K/mm3 (0.0-0.1) 02/01/19 03:50 0.0 K/mm3 02/01/19 03:50 0.0 K/mm3 02/01/19 03:50 0.0 K/mm3 02/01/19 03:50 Blast Cells # 0.0 K/mm3 02/01/19 03:50 WBC Morphology Not Reportable 02/01/19 03:50 Hypersegmented Neuts Not Reportable 02/01/19 03:50 Hyposegmented Neuts Not Reportable 02/01/19 03:50 Hypogranular Neuts Not Reportable 02/01/19 03:50 Not Reportable 02/01/19 03:50 Not Reportable 02/01/19 03:50 Not Reportable 02/01/19 03:50 Not Reportable 02/01/19 03:50 Not Reportable 02/01/19 03:50 Not Reportable 02/01/19 03:50 Appears normal 02/01/19 03:50 Not Reportable 02/01/19 03:50 Plt Clumps, EDTA Not Reportable 02/01/19 03:50 Not Reportable 02/01/19 03:50 Not Reportable 02/01/19 03:50 Not Reportable 02/01/19 03:50 Plt Morphology Comment Not Reportable 02/01/19 03:50 RBC Morphology Not Reportable 02/01/19 03:50 Dimorphic RBCs Not Reportable 02/01/19 03:50 Not Reportable 02/01/19 03:50 1+ 02/01/19 03:50 Not Reportable 02/01/19 03:50 1+ 02/01/19 03:50 Not Reportable 02/01/19 03:50 Not Reportable 02/01/19 03:50 Not Reportable 02/01/19 03:50 Not Reportable 02/01/19 03:50 Not Reportable 02/01/19 03:50 Not Reportable 02/01/19 03:50 Not Reportable 02/01/19 03:50 Not Reportable 02/01/19 03:50 Not Reportable 02/01/19 03:50 Not Reportable 02/01/19 03:50 Not Reportable 02/01/19 03:50 Not Reportable 02/01/19 03:50 Not Reportable 02/01/19 03:50 Not Reportable 02/01/19 03:50 Not Reportable 02/01/19 03:50 Acanthocytes (Spur) Not Reportable 02/01/19 03:50 Rouleaux Not Reportable 02/01/19 03:50 Not Reportable 02/01/19 03:50 Not Reportable 02/01/19 03:50 Not Reportable 02/01/19 03:50 Not Reportable 02/01/19 03:50 Hem Pathologist Commnt No 02/01/19 03:50 POC ABG pH 7.479 (7.35-7.45) H 01/28/19 19:00 POC ABG pCO2 32.3 (35-45) L 01/28/19 19:00 POC ABG pO2 93 (80-105) 01/28/19 19:00 POC ABG HCO3 24.0 (22-26 mml/L) 01/28/19 19:00 POC ABG Total CO2 25 (23-27mmol/L) 01/28/19 19:00 POC ABG O2 Sat 98 01/28/19 19:00 POC ABG Base Excess 0 ((-2) - (+3)mmol/L) 01/28/19 19:00 21 % 01/28/19 19:00 Sodium 141 mmol/L (137-145) 02/03/19 07:00 Potassium 3.8 mmol/L (3.6-5.0) 02/03/19 07:00 Chloride 104.3 mmol/L (98-107) 02/03/19 07:00 Carbon Dioxide 26 mmol/L (22-30) 02/03/19 07:00 15 mmol/L 02/03/19 07:00 BUN 17 mg/dL (9-20) 02/03/19 07:00 0.6 mg/dL (0.8-1.5) L 02/03/19 07:00 Estimated GFR > 60 ml/min 02/03/19 07:00 28 % 02/03/19 07:00 Glucose 268 mg/dL (75-100) H 02/03/19 07:00 POC Glucose 204 (70-105) H 02/04/19 09:47 Lactic Acid 1.40 mmol/L (0.7-2.0) 01/25/19 18:50 Calcium 8.1 mg/dL (8.4-10.2) L 02/03/19 07:00 Magnesium 1.80 mg/dL (1.7-2.3) 02/01/19 03:50 0.20 mg/dL (0.1-1.2) 01/26/19 04:25 AST 12 units/L (5-40) 01/26/19 04:25 ALT 17 units/L (7-56) 01/26/19 04:25 84 units/L (35-129) 01/26/19 04:25 41.0 umol/L (25-60) 01/31/19 13:26 294 units/L (55-170) H 01/25/19 13:31 CK-MB (CK-2) 2.2 ng/mL (0.0-4.0) 01/25/19 13:31 CK-MB (CK-2) Rel Index 0.7 (0-4) 01/25/19 13:31 0.031 ng/mL (0.00-0.029) H D 01/26/19 04:25 6.4 g/dL (6.3-8.2) 01/26/19 04:25 2.3 g/dL (3.9-5) L 01/26/19 04:25 0.6 % 01/26/19 04:25 Triglycerides 172 mg/dL (2-149) H 01/25/19 13:31 Cholesterol 148 mg/dL (50-199) 01/25/19 13:31 82 mg/dL (50-130) 01/25/19 13:31 30 mg/dL (40-59) L 01/25/19 13:31 4.93 % 01/25/19 13:31 TSH 4.020 mlU/mL (0.270-4.200) 01/25/19 13:31 Free T4 0.89 ng/dL (0.76-1.46) 01/25/19 13:31 Yellow (Yellow) 01/25/19 15:00 Slightly-cloudy (Clear) 01/25/19 15:00 5.0 (5.0-7.0) 01/25/19 15:00 Ur Specific [place] 1.018 (1.003-1.030) 01/25/19 15:00 <15 mg/dl mg/dL (Negative) 01/25/19 15:00 50 mg/dL (Negative) 01/25/19 15:00 Neg mg/dL (Negative) 01/25/19 15:00 Neg (Negative) 01/25/19 15:00 Neg (Negative) 01/25/19 15:00 Neg (Negative) 01/25/19 15:00 4.0 mg/dL (<2.0) 01/25/19 15:00 Ur Leukocyte Esterase Neg (Negative) 01/25/19 15:00 3.0 /HPF (0.0-6.0) 01/25/19 15:00 1.0 /HPF (0.0-6.0) 01/25/19 15:00 U Epithel Cells (Auto) < 1.0 /HPF (0-13.0) 01/25/19 15:00 Hyaline Casts 9 /LPF 01/25/19 15:00 Active Medications - Current Medications Current Medications: Generic Name Dose Route Start Last Admin Trade Name Freq PRN Reason Stop Dose Admin Lipase/Protease/Amylase 1 each 01/26/19 11:[address] 10,500 Unit FEEDTUBE PRN PRN For Clogged Feeding Tube Heparin Sodium (Porcine) 5,000 unit 01/25/19 22:00 02/04/19 09:37 Heparin SUB-Q 5,000 unit Q12HR NIKOLAS Administration Hydralazine HCl 10 mg 02/03/19 22:00 Apresoline IV Q8HR PRN Hypertension Insulin Glargine 45 units 01/29/19 22:00 02/03/19 22:00 Lantus SUB-Q 45 units QHS NIKOLAS Administration Insulin Human Lispro 0 unit 01/25/19 23:15 02/04/19 09:47 Humalog SUB-Q 4 unit Q4HR NIKOLAS Administration Protocol Simple Syrup 15 ml 01/26/19 11:47 Simple Syrup FEEDTUBE PRN PRN Hypoglycemia Simple Syrup 30 ml 01/26/19 11:47 Simple Syrup FEEDTUBE PRN PRN Hypoglycemia Sodium Bicarbonate 325 mg 01/26/19 11:47 Sodium Bicarbonate FEEDTUBE PRN PRN For Clogged Feeding Tube Sodium Chloride 10 ml 01/25/19 22:00 02/04/19 10:00 Sodium Chloride Flush Syringe 10 Ml IV 10 ml BID NIKOLAS Administration Sodium Chloride 10 ml 01/25/19 17:46 Sodium Chloride Flush Syringe 10 Ml IV PRN PRN LINE FLUSH Nutrition/Malnutrition Assess - Dietary Evaluation Nutrition/Malnutrition Findings: Nutrition Notes Start: 01/26/19 08:45 Freq: Status: Active Protocol: Document 01/28/19 10:22 TW (Rec: 01/28/19 10:25 TW [id number]) Co-Sign 01/28/19 10:22 LP Nutrition Notes Initial or Follow up Reassessment Current Diagnosis Hypertension Other Pertinent Diagnosis Acute renail failure, Hyperkalemia, AMS, Dehydration Current Diet Nepo 1.8 at 50 ml/hr Labs/Tests Na 159 BUN 75 K: 3.3 BG 310 Pertinent Medications Reviewed Height 5 ft 6 in Weight 74.9 kg [place] Body Weight (kg) 64.54 BMI 26.6 Subjective/Other Information Follow up for TF tolerance. Per RN, pt is tolerating TF well. Observed Nepro 1.8 running at goal rate (50 ml/hr ). Percent of energy/protein needs met: 100%/100% Burn Absent Trauma Absent #1 Nutrition Diagnosis Inadequate oral intake Diagnosis Progress(for reassessment Continues documentation) Is patient on ventilator? No Is Patient Ambulatory and/or Out of Bed No REE-([facility]-confined to bed) [phone] Calculation Used for Recommendations [facility] Additional Notes PRO: 1.0-1.3 g/kg (75-98 g/day ) Fluid: 1500 mL or per Nutrition Intervention Nutrition Support: Nepro 1.8 at 50 mL/hr Flush 100 mL q 4 hr Kcal 2,160 Protein (gm) 97 Fat (gm) 115 Fluid (mL) 872 Goal #1 Continue to meet at least 75% harsh and pro needs via TF Anticipated Discharge Needs: Unable to determine at this time Follow-Up By: 02/04/19 Additional Comments F/u: TF tolerance
--- NOTE | 2019-02-04 11:47 | Cat Scan Report ---
CT HEAD WITHOUT CONTRAST INDICATION: Altered mental status. COMPARISON: 01/25/[address] FINDINGS: Noncontrast head CT demonstrates stable ventricles and sulci, including right frontoparietal shunt catheter and right cerebral hemisphere old ischemic hypodense regions/encephalomalacia measuring up to 3.8 x 1.5 cm in the right frontal white matter as on axial series 2, image 34. No definite acute infarct, hemorrhage, mass effect or midline shift. No abnormal extra axial fluid collections. Stable posterior fossa, including approximately 2.3 cm left cerebellar hypodensity/encephalomalacia as on axial image 21. Preserved basilar cisterns. Unremarkable eye globes. Rightward nasal septal deviation anteriorly. Mild right maxillary sinus mucosal thickening. Clear remainder imaged paranasal sinuses and mastoid air cells. Slight atherosclerotic ICA calcifications. Normal calvarium and scalp. Few missing teeth. A new nasogastric tube courses the right nasal passage. Bilateral external auditory canal debris may be directly visualized. CONCLUSION: No acute intracranial CT abnormality in this patient with stable ventricular shunt, old ischemic/encephalomalacic changes and various other incidental findings, including a new nasogastric tube, as detailed above. Please correlate. Thank you for the opportunity to participate in this patient's care.
[2019-02-04] MEDS ORDERED: SIMPLE SYRUP FEEDTUBE PRN ×2 (15:28)
[2019-02-04] MEDS ORDERED: SODIUM BICARBONATE FEEDTUBE PRN (15:28)
[2019-02-04] MEDS ORDERED: PANCREAZE DR 10,500 UNIT FEEDTUBE PRN (15:28)
[2019-02-04 16:40] LABS: INR 0.91 (0.87-1.13)
[2019-02-04] MEDS: LANTUS SUB-Q SCH (21:58)
[2019-02-05] MEDS: HumaLOG SUB-Q SCH ×5 (02:36→22:10)
--- NOTE | 2019-02-05 09:03 | Progress Note ---
Assessment and Plan Acute metabolic encephalopathy MYRTLE (acute kidney injury) Acute hypernatremia, resolved Hyperkalemia Metabolic acidosis with increased anion gap and reduced excretion of inorganic acids Sepsis IDDM (insulin dependent diabetes mellitus) HTN (hypertension) HLD (hyperlipidemia) BPH (benign prostatic hyperplasia) s/p ICH with right [employer] shut in place - supplemental oxygen and wean to keep O2 sat's > 90% - bronchodilators with pulmonary hygiene per RT - aspiration precautions - enteral nutrition as tolerated - continue glycemic control with SSI for target BG < 180mg/dl -VTE prophylaxis -agitation management, maybe helped with increased mobility and decreased anti- psychotics -Maintain of sleep- wake cycle Discussed extensively with the RN at the bedside Subjective Date of service: 02/05/19 Principal diagnosis: MYRTLE/Hypernatremia Interval history: Patient is seen today for: Acute metabolic encephalopathy; MYRTLE (acute kidney injury); Acute hypernatremia; Hyperkalemia; Metabolic acidosis with increased anion gap and reduced excretion of inorganic acids; Severe Sepsis; IDDM (insulin dependent diabetes mellitus) Seen and examined at bedside; 24hour events reviewed; nursing and respiratory care staff consulted; no adverse overnight events reported to me; in bed with restrains ; ongoing agitation and confusion; tolerating tube feeds; remains on supplemental oxygen; no emesis or overt aspiration Objective Vital Signs - 12hr 02/04/19 02/04/19 02/05/19 22:00 23:38 03:55 Temperature 98.0 F 98.0 F Pulse Rate 94 H 96 H 103 H Respiratory 18 19 Rate Blood Pressure 149/84 138/95 O2 Sat by Pulse 100 99 Oximetry 02/05/19 07:58 Temperature 98.0 F Pulse Rate 98 H Respiratory 20 Rate Blood Pressure 151/85 O2 Sat by Pulse 99 Oximetry Constitutional: no acute distress, other (Awake, not following commands,) Eyes: non-icteric ENT: oropharynx moist Neck: supple, no lymphadenopathy, no JVD, other (no thyromegaly) Effort: normal Ascultation: Bilateral: clear, diminished breath sounds Percussion: Bilateral: not dull Cardiovascular: regular rate and rhythm Gastrointestinal: normoactive bowel sounds, soft, non-tender, non-distended Integumentary: normal Extremities: no cyanosis, no edema, pulses normal, no ischemia or petechiae Neurologic: non-focal exam, pupils equal and round, other (hemiparesis, more awake and alert) Psychiatric: other (Can Not asses due to his mental status.) CBC and BMP: 02/03/19 07:00 02/09/19 07:28 ABG, PT/INR, D-dimer: ABG POC ABG pH 7.479 (7.35-7.45) H 01/28/19 19:00 POC ABG pCO2 32.3 (35-45) L 01/28/19 19:00 POC ABG pO2 93 (80-105) 01/28/19 19:00 POC ABG HCO3 24.0 (22-26 mml/L) 01/28/19 19:00 POC ABG Total CO2 25 (23-27mmol/L) 01/28/19 19:00 POC ABG O2 Sat 98 01/28/19 19:00 PT/INR, D-dimer PT 12.8 Sec. (12.2-14.9) 02/04/19 15:38 INR 0.91 (0.87-1.13) 02/04/19 15:38 Abnormal lab findings: Abnormal Labs 01/25/19 01/25/19 01/25/19 13:31 13:31 13:31 WBC 12.0 H RBC 6.00 H Hgb Hct 47.7 H MCV 80 L MCH 25 L MCHC 31 L RDW 18.1 H Lymph % (Auto) 10.[address] [place] % (Auto) 9.3 H Lymph # [place] # 1.1 H Baso # Seg Neutrophils % 78.5 H Seg Neuts % (Manual) Nucleated RBC % Seg Neutrophils # 9.5 H POC ABG pH POC ABG pCO2 Sodium 159 H Potassium 6.0 H Chloride 119.0 H Carbon Dioxide BUN 185 H Creatinine 5.7 H D Glucose 433 H POC Glucose Lactic Acid 2.60 H* Calcium Total Creatine Kinase 294 H Troponin T 0.080 H Albumin 2.6 L Triglycerides 172 H HDL Cholesterol 30 L 01/25/19 01/25/19 01/25/19 16:03 16:03 17:11 WBC RBC Hgb Hct MCV MCH MCHC RDW Lymph % (Auto) [place] % (Auto) Lymph # [place] # Baso # Seg Neutrophils % Seg Neuts % (Manual) Nucleated RBC % Seg Neutrophils # POC ABG pH POC ABG pCO2 Sodium Potassium Chloride Carbon Dioxide BUN Creatinine Glucose POC Glucose 346 H Lactic Acid 2.20 H* 2.30 H* Calcium Total Creatine Kinase Troponin T Albumin Triglycerides HDL Cholesterol 01/25/19 01/25/19 01/26/19 18:50 23:08 00:22 WBC RBC Hgb Hct MCV MCH MCHC RDW Lymph % (Auto) [place] % (Auto) Lymph # [place] # Baso # Seg Neutrophils % Seg Neuts % (Manual) Nucleated RBC % Seg Neutrophils # POC ABG pH POC ABG pCO2 Sodium 162 H* Potassium Chloride 125.2 H Carbon Dioxide BUN 180 H Creatinine 5.1 H Glucose 438 H POC Glucose 480 H Lactic Acid Calcium Total Creatine Kinase Troponin T 0.045 H D Albumin Triglycerides HDL Cholesterol 01/26/19 01/26/19 01/26/19 02:16 04:25 04:25 WBC RBC 5.21 H Hgb Hct MCV 80 L MCH 25 L MCHC 31 L RDW 18.0 H Lymph % (Auto) 8.[address] % (Auto) 7.6 H Lymph # 0.[address] # Baso # 0.2 H Seg Neutrophils % 81.6 H Seg Neuts % (Manual) Nucleated RBC % Seg Neutrophils # 8.3 H POC ABG pH POC ABG pCO2 Sodium 158 H Potassium Chloride 122.9 H Carbon Dioxide 21 L BUN 163 H Creatinine 3.9 H Glucose 465 H POC Glucose 462 H Lactic Acid Calcium 7.8 L Total Creatine Kinase Troponin T Albumin 2.3 L Triglycerides HDL Cholesterol 01/26/19 01/26/19 01/26/19 04:25 05:33 10:08 WBC RBC Hgb Hct MCV MCH MCHC RDW Lymph % (Auto) [place] % (Auto) Lymph # [place] # Baso # Seg Neutrophils % Seg Neuts % (Manual) Nucleated RBC % Seg Neutrophils # POC ABG pH POC ABG pCO2 Sodium 160 H Potassium Chloride 123.9 H Carbon Dioxide 19 L BUN 161 H Creatinine 3.9 H Glucose 468 H POC Glucose 309 H 316 H Lactic Acid Calcium 7.8 L Total Creatine Kinase Troponin T 0.031 H D Albumin Triglycerides HDL Cholesterol 01/26/19 01/26/19 01/27/19 14:30 16:11 03:18 WBC RBC Hgb Hct MCV MCH MCHC RDW Lymph % (Auto) [place] % (Auto) Lymph # [place] # Baso # Seg Neutrophils % Seg Neuts % (Manual) Nucleated RBC % Seg Neutrophils # POC ABG pH POC ABG pCO2 Sodium 160 H Potassium 3.4 L D Chloride 124.8 H Carbon Dioxide BUN 141 H Creatinine 2.9 H Glucose 126 H POC Glucose 167 H 184 H Lactic Acid Calcium 8.3 L Total Creatine Kinase Troponin T Albumin Triglycerides HDL Cholesterol 01/27/19 01/27/19 01/27/19 06:23 06:33 06:33 WBC RBC Hgb Hct MCV 79 L MCH 25 L MCHC 31 L RDW 17.7 H Lymph % (Auto) [place] % (Auto) 8.1 H Lymph # [place] # Baso # Seg Neutrophils % 71.1 H Seg Neuts % (Manual) Nucleated RBC % Seg Neutrophils # POC ABG pH POC ABG pCO2 Sodium 157 H Potassium Chloride 121.4 H Carbon Dioxide BUN 117 H Creatinine 1.9 H Glucose 200 H POC Glucose 219 H Lactic Acid Calcium 8.3 L Total Creatine Kinase Troponin T Albumin Triglycerides HDL Cholesterol 01/27/19 01/27/19 01/27/19 11:13 12:46 16:10 WBC RBC Hgb Hct MCV MCH MCHC RDW Lymph % (Auto) [place] % (Auto) Lymph # [place] # Baso # Seg Neutrophils % Seg Neuts % (Manual) Nucleated RBC % Seg Neutrophils # POC ABG pH POC ABG pCO2 Sodium Potassium Chloride Carbon Dioxide BUN Creatinine Glucose POC Glucose 200 H 205 H 230 H Lactic Acid Calcium Total Creatine Kinase Troponin T Albumin Triglycerides HDL Cholesterol 01/28/19 01/28/19 01/28/19 00:09 06:04 06:04 WBC RBC Hgb 11.5 L Hct MCV 77 L MCH 25 L MCHC RDW 17.4 H Lymph % (Auto) [place] % (Auto) 8.7 H Lymph # [facility] # Baso # Seg Neutrophils % Seg Neuts % (Manual) Nucleated RBC % Seg Neutrophils # POC ABG pH POC ABG pCO2 Sodium 159 H Potassium 3.3 L Chloride 123.1 H Carbon Dioxide BUN 75 H Creatinine Glucose 310 H POC Glucose 177 H Lactic Acid Calcium Total Creatine Kinase Troponin T Albumin Triglycerides HDL Cholesterol 01/28/19 01/28/19 01/28/19 06:42 12:28 15:10 WBC RBC Hgb Hct MCV MCH MCHC RDW Lymph % (Auto) [place] % (Auto) Lymph # [facility] # Baso # Seg Neutrophils % Seg Neuts % (Manual) Nucleated RBC % Seg Neutrophils # POC ABG pH POC ABG pCO2 Sodium Potassium Chloride Carbon Dioxide BUN Creatinine Glucose POC Glucose 384 H 280 H 282 H Lactic Acid Calcium Total Creatine Kinase Troponin T Albumin Triglycerides HDL Cholesterol 01/28/19 01/28/19 01/28/19 18:54 19:00 21:44 WBC RBC Hgb Hct MCV MCH MCHC RDW Lymph % (Auto) [place] % (Auto) Lymph # [facility] # Baso # Seg Neutrophils % Seg Neuts % (Manual) Nucleated RBC % Seg Neutrophils # POC ABG pH 7.479 H POC ABG pCO2 32.3 L Sodium Potassium Chloride Carbon Dioxide BUN Creatinine Glucose POC Glucose 189 H 179 H Lactic Acid Calcium Total Creatine Kinase Troponin T Albumin Triglycerides HDL Cholesterol 01/29/19 01/29/19 01/29/19 01:48 04:37 05:38 WBC RBC Hgb Hct MCV MCH MCHC RDW Lymph % (Auto) [place] % (Auto) Lymph # [facility] # Baso # Seg Neutrophils % Seg Neuts % (Manual) Nucleated RBC % Seg Neutrophils # POC ABG pH POC ABG pCO2 Sodium 164 H* Potassium 3.5 L Chloride 128.9 H Carbon Dioxide BUN 54 H Creatinine Glucose 271 H POC Glucose 238 H 248 H Lactic Acid Calcium Total Creatine Kinase Troponin T Albumin Triglycerides HDL Cholesterol 01/29/19 01/29/19 01/29/19 10:26 13:19 17:57 WBC RBC Hgb Hct MCV MCH MCHC RDW Lymph % (Auto) [place] % (Auto) Lymph # [facility] # Baso # Seg Neutrophils % Seg Neuts % (Manual) Nucleated RBC % Seg Neutrophils # POC ABG pH POC ABG pCO2 Sodium Potassium Chloride Carbon Dioxide BUN Creatinine Glucose POC Glucose 288 H 301 H 242 H Lactic Acid Calcium Total Creatine Kinase Troponin T Albumin Triglycerides HDL Cholesterol 01/29/19 01/30/19 01/30/19 20:25 01:51 05:23 WBC RBC Hgb Hct MCV MCH MCHC RDW Lymph % (Auto) [place] % (Auto) Lymph # [facility] # Baso # Seg Neutrophils % Seg Neuts % (Manual) Nucleated RBC % Seg Neutrophils # POC ABG pH POC ABG pCO2 Sodium Potassium Chloride Carbon Dioxide BUN Creatinine Glucose POC Glucose 223 H 229 H 218 H Lactic Acid Calcium Total Creatine Kinase Troponin T Albumin Triglycerides HDL Cholesterol 01/30/19 01/30/19 01/30/19 07:16 10:26 14:24 WBC RBC Hgb Hct MCV MCH MCHC RDW Lymph % (Auto) [place] % (Auto) Lymph # [facility] # Baso # Seg Neutrophils % Seg Neuts % (Manual) Nucleated RBC % Seg Neutrophils # POC ABG pH POC ABG pCO2 Sodium 155 H D Potassium 3.2 L Chloride 118.4 H Carbon Dioxide BUN 40 H Creatinine Glucose 246 H POC Glucose 257 H 240 H Lactic Acid Calcium 8.3 L Total Creatine Kinase Troponin T Albumin Triglycerides HDL Cholesterol 01/30/19 01/30/19 01/30/19 18:30 20:44 23:38 WBC RBC Hgb Hct MCV MCH MCHC RDW Lymph % (Auto) [facility] % (Auto) Lymph # [facility] # Baso # Seg Neutrophils % Seg Neuts % (Manual) Nucleated RBC % Seg Neutrophils # POC ABG pH POC ABG pCO2 Sodium Potassium Chloride Carbon Dioxide BUN Creatinine Glucose POC Glucose 327 H 300 H 279 H Lactic Acid Calcium Total Creatine Kinase Troponin T Albumin Triglycerides HDL Cholesterol 01/31/19 01/31/19 01/31/19 01:57 04:42 04:42 WBC RBC Hgb 10.1 L Hct 31.7 L MCV 79 L MCH 25 L MCHC RDW 17.4 H Lymph % (Auto) [facility] % (Auto) Lymph # [facility] # Baso # Seg Neutrophils % Seg Neuts % (Manual) 75.0 H Nucleated RBC % 2.0 H Seg Neutrophils # POC ABG pH POC ABG pCO2 Sodium 147 H D Potassium 3.2 L Chloride 110.0 H Carbon Dioxide BUN 28 H Creatinine Glucose 261 H POC Glucose 270 H Lactic Acid Calcium 7.8 L Total Creatine Kinase Troponin T Albumin Triglycerides HDL Cholesterol 01/31/19 01/31/19 01/31/19 05:10 08:46 17:10 WBC RBC Hgb Hct MCV MCH MCHC RDW Lymph % (Auto) [facility] % (Auto) Lymph # [facility] # Baso # Seg Neutrophils % Seg Neuts % (Manual) Nucleated RBC % Seg Neutrophils # POC ABG pH POC ABG pCO2 Sodium Potassium Chloride Carbon Dioxide BUN Creatinine Glucose POC Glucose 239 H 242 H 298 H Lactic Acid Calcium Total Creatine Kinase Troponin T Albumin Triglycerides HDL Cholesterol 01/31/19 02/01/19 02/01/19 21:10 02:17 03:50 WBC RBC Hgb Hct MCV MCH MCHC RDW Lymph % (Auto) [facility] % (Auto) Lymph # [facility] # Baso # Seg Neutrophils % Seg Neuts % (Manual) Nucleated RBC % Seg Neutrophils # POC ABG pH POC ABG pCO2 Sodium 146 H Potassium Chloride 110.9 H Carbon Dioxide 21 L BUN 26 H Creatinine 0.7 L Glucose 240 H POC Glucose 304 H 240 H Lactic Acid Calcium 8.3 L Total Creatine Kinase Troponin T Albumin Triglycerides HDL Cholesterol 02/01/19 02/01/19 02/01/19 03:50 05:35 10:11 WBC RBC Hgb 10.2 L Hct 31.4 L MCV 78 L MCH 25 L MCHC RDW 16.9 H Lymph % (Auto) [facility] % (Auto) Lymph # [facility] # Baso # Seg Neutrophils % Seg Neuts % (Manual) 78.0 H Nucleated RBC % Seg Neutrophils # POC ABG pH POC ABG pCO2 Sodium Potassium Chloride Carbon Dioxide BUN Creatinine Glucose POC Glucose 208 H 186 H Lactic Acid Calcium Total Creatine Kinase Troponin T Albumin Triglycerides HDL Cholesterol 02/01/19 02/01/19 02/01/19 14:35 17:25 20:44 WBC RBC Hgb Hct MCV MCH MCHC RDW Lymph % (Auto) [facility] % (Auto) Lymph # [facility] # Baso # Seg Neutrophils % Seg Neuts % (Manual) Nucleated RBC % Seg Neutrophils # POC ABG pH POC ABG pCO2 Sodium Potassium Chloride Carbon Dioxide BUN Creatinine Glucose POC Glucose 222 H 193 H 204 H Lactic Acid Calcium Total Creatine Kinase Troponin T Albumin Triglycerides HDL Cholesterol 02/02/19 02/02/19 02/02/19 07:17 07:26 12:11 WBC RBC Hgb Hct MCV MCH MCHC RDW Lymph % (Auto) [facility] % (Auto) Lymph # [facility] # Baso # Seg Neutrophils % Seg Neuts % (Manual) Nucleated RBC % Seg Neutrophils # POC ABG pH POC ABG pCO2 Sodium Potassium 3.3 L D Chloride 107.8 H Carbon Dioxide BUN Creatinine 0.6 L Glucose 117 H POC Glucose 110 H 115 H Lactic Acid Calcium 7.9 L Total Creatine Kinase Troponin T Albumin Triglycerides HDL Cholesterol 02/02/19 02/02/19 02/02/19 16:10 18:30 18:50 WBC RBC Hgb Hct MCV MCH MCHC RDW Lymph % (Auto) [facility] % (Auto) Lymph # [facility] # Baso # Seg Neutrophils % Seg Neuts % (Manual) Nucleated RBC % Seg Neutrophils # POC ABG pH POC ABG pCO2 Sodium Potassium Chloride Carbon Dioxide BUN Creatinine Glucose POC Glucose 182 H 200 H 198 H Lactic Acid Calcium Total Creatine Kinase Troponin T Albumin Triglycerides HDL Cholesterol 02/03/19 02/03/19 02/03/19 00:40 06:50 07:00 WBC RBC Hgb Hct MCV MCH MCHC RDW Lymph % (Auto) [facility] % (Auto) Lymph # [facility] # Baso # Seg Neutrophils % Seg Neuts % (Manual) Nucleated RBC % Seg Neutrophils # POC ABG pH POC ABG pCO2 Sodium Potassium Chloride Carbon Dioxide BUN Creatinine 0.6 L Glucose 268 H POC Glucose 212 H 260 H Lactic Acid Calcium 8.1 L Total Creatine Kinase Troponin T Albumin Triglycerides HDL Cholesterol 02/03/19 02/03/19 02/03/19 07:00 08:23 12:49 WBC RBC Hgb 9.7 L Hct 29.7 L MCV 76 L MCH 25 L MCHC RDW 17.0 H Lymph % (Auto) [facility] % (Auto) Lymph # [facility] # Baso # Seg Neutrophils % Seg Neuts % (Manual) Nucleated RBC % Seg Neutrophils # POC ABG pH POC ABG pCO2 Sodium Potassium Chloride Carbon Dioxide BUN Creatinine Glucose POC Glucose 275 H 198 H Lactic Acid Calcium Total Creatine Kinase Troponin T Albumin Triglycerides HDL Cholesterol 02/03/19 02/04/19 02/04/19 21:50 02:23 05:17 WBC RBC Hgb Hct MCV MCH MCHC RDW Lymph % (Auto) [facility] % (Auto) Lymph # [place] # Baso # Seg Neutrophils % Seg Neuts % (Manual) Nucleated RBC % Seg Neutrophils # POC ABG pH POC ABG pCO2 Sodium Potassium Chloride Carbon Dioxide BUN Creatinine Glucose POC Glucose 153 H 139 H 180 H Lactic Acid Calcium Total Creatine Kinase Troponin T Albumin Triglycerides HDL Cholesterol 02/04/19 02/04/19 02/04/19 09:47 14:40 18:03 WBC RBC Hgb Hct MCV MCH MCHC RDW Lymph % (Auto) [facility] % (Auto) Lymph # [facility] # Baso # Seg Neutrophils % Seg Neuts % (Manual) Nucleated RBC % Seg Neutrophils # POC ABG pH POC ABG pCO2 Sodium Potassium Chloride Carbon Dioxide BUN Creatinine Glucose POC Glucose 204 H 176 H 180 H Lactic Acid Calcium Total Creatine Kinase Troponin T Albumin Triglycerides HDL Cholesterol 02/04/19 02/04/19 02/05/19 18:35 21:35 01:31 WBC RBC Hgb Hct MCV MCH MCHC RDW Lymph % (Auto) [facility] % (Auto) Lymph # [facility] # Baso # Seg Neutrophils % Seg Neuts % (Manual) Nucleated RBC % Seg Neutrophils # POC ABG pH POC ABG pCO2 Sodium Potassium Chloride Carbon Dioxide BUN Creatinine Glucose POC Glucose 146 H 118 H 154 H Lactic Acid Calcium Total Creatine Kinase Troponin T Albumin Triglycerides HDL Cholesterol 02/05/19 02/05/19 05:56 07:58 WBC RBC Hgb Hct MCV MCH MCHC RDW Lymph % (Auto) [facility] % (Auto) Lymph # [facility] # Baso # Seg Neutrophils % Seg Neuts % (Manual) Nucleated RBC % Seg Neutrophils # POC ABG pH POC ABG pCO2 Sodium Potassium Chloride Carbon Dioxide BUN Creatinine Glucose POC Glucose 182 H 210 H Lactic Acid Calcium Total Creatine Kinase Troponin T Albumin Triglycerides HDL Cholesterol Allied health notes reviewed: nursing
[2019-02-05] MEDS: HEPARIN SUB-Q SCH ×2 (09:48→22:08)
[2019-02-05] MEDS: SODIUM CHLORIDE FLUSH SYRINGE 10 ML IV SCH ×2 (09:49→22:11)
--- NOTE | 2019-02-05 12:46 | Progress Note ---
Assessment and Plan Assessment and plan: Metabolic encephalopathy. Patient remains confused requiring restraints. Continue to treat underlying causes of hypernatremia. Neurology following. Head CT negative. Obtain MRI Brain Hypernatremia. Now resolved. Acute renal failure/MYRTLE. Resolved Dysphagia, Spoke to mother Di Syed, about PEG tube placement and she is agreeable. Hyperlipidemia. Continue statins. Hypokalemia. Replete potassium as needed. Hypertension. Continue antihypertensive medications. Diabetes mellitus type 2. Continue Accu-Cheks qac hs, Sliding scale regular insulin and Lantus History Interval history: Altered mental status Dysphagia Hospitalist Physical - Physical exam Narrative exam: Gen: Not in acute distress, lying in bed HEENT: Normocephalic, atraumatic Neck: supple, no JVD Heart: S1 and S2 reg, no murmurs, rubs or gallop Lungs: Clear, no crackles Abd: soft, non tender, non distended, normal BS Ext: No edema, no clubbing, no cyanosis, Neuro: Lethargic - Constitutional Vitals: Temp Pulse Resp BP Pulse Ox 97.9 F 98 H 18 113/56 98 02/05/19 11:57 02/05/19 11:57 02/05/19 11:57 02/05/19 11:57 02/05/19 11:57 General appearance: Present: no acute distress Results - Labs CBC & Chem 7: 02/03/19 07:00 02/03/19 07:00 Labs: Laboratory Last Values WBC 6.2 K/mm3 (4.5-11.0) 02/03/19 07:00 RBC 3.91 M/mm3 (3.65-5.03) 02/03/19 07:00 Hgb 9.7 gm/dl (11.8-15.2) L 02/03/19 07:00 Hct 29.7 % (35.5-45.6) L 02/03/19 07:00 MCV 76 fl (84-94) L 02/03/19 07:00 MCH 25 pg (28-32) L 02/03/19 07:00 MCHC 33 % (32-34) 02/03/19 07:00 RDW 17.0 % (13.2-15.2) H 02/03/19 07:00 Plt Count 195 K/mm3 (140-440) 02/03/19 07:00 Lymph % (Auto) 19.1 % (13.4-35.0) 01/28/19 06:04 Garvin % (Auto) 8.7 % (0.0-7.3) H 01/28/19 06:04 Eos % (Auto) 3.1 % (0.0-4.3) 01/28/19 06:04 Baso % (Auto) 0.3 % (0.0-1.8) 01/28/19 06:04 Lymph # 1.3 K/mm3 (1.2-5.4) 01/28/19 06:04 Garvin # 0.6 K/mm3 (0.0-0.8) 01/28/19 06:04 Eos # 0.2 K/mm3 (0.0-0.4) 01/28/19 06:04 Baso # 0.0 K/mm3 (0.0-0.1) 01/28/19 06:04 Add Manual Diff Complete 02/01/19 03:50 Total Counted 100 02/01/19 03:50 Seg Neutrophils % 68.8 % (40.0-70.0) 01/28/19 06:04 Seg Neuts % (Manual) 78.0 % (40.0-70.0) H 02/01/19 03:50 1.0 % 02/01/19 03:50 16.0 % (13.4-35.0) 02/01/19 03:50 Reactive Lymphs % (Man) 0 % 02/01/19 03:50 1.0 % (0.0-7.3) 02/01/19 03:50 4.0 % (0.0-4.3) 02/01/19 03:50 0 % (0.0-1.8) 02/01/19 03:50 0 % 02/01/19 03:50 0 % 02/01/19 03:50 0 % 02/01/19 03:50 0 % 02/01/19 03:50 Nucleated RBC % Not Reportable 02/01/19 03:50 Seg Neutrophils # 4.8 K/mm3 (1.8-7.7) 01/28/19 06:04 Seg Neutrophils # Man 6.4 K/mm3 (1.8-7.7) 02/01/19 03:50 Band Neutrophils # 0.1 K/mm3 02/01/19 03:50 1.3 K/mm3 (1.2-5.4) 02/01/19 03:50 Abs React Lymphs (Man) 0.0 K/mm3 02/01/19 03:50 0.1 K/mm3 (0.0-0.8) 02/01/19 03:50 0.3 K/mm3 (0.0-0.4) 02/01/19 03:50 0.0 K/mm3 (0.0-0.1) 02/01/19 03:50 0.0 K/mm3 02/01/19 03:50 0.0 K/mm3 02/01/19 03:50 0.0 K/mm3 02/01/19 03:50 Blast Cells # 0.0 K/mm3 02/01/19 03:50 WBC Morphology Not Reportable 02/01/19 03:50 Hypersegmented Neuts Not Reportable 02/01/19 03:50 Hyposegmented Neuts Not Reportable 02/01/19 03:50 Hypogranular Neuts Not Reportable 02/01/19 03:50 Not Reportable 02/01/19 03:50 Not Reportable 02/01/19 03:50 Not Reportable 02/01/19 03:50 Not Reportable 02/01/19 03:50 Not Reportable 02/01/19 03:50 Not Reportable 02/01/19 03:50 Appears normal 02/01/19 03:50 Not Reportable 02/01/19 03:50 Plt Clumps, EDTA Not Reportable 02/01/19 03:50 Not Reportable 02/01/19 03:50 Not Reportable 02/01/19 03:50 Not Reportable 02/01/19 03:50 Plt Morphology Comment Not Reportable 02/01/19 03:50 RBC Morphology Not Reportable 02/01/19 03:50 Dimorphic RBCs Not Reportable 02/01/19 03:50 Not Reportable 02/01/19 03:50 1+ 02/01/19 03:50 Not Reportable 02/01/19 03:50 1+ 02/01/19 03:50 Not Reportable 02/01/19 03:50 Not Reportable 02/01/19 03:50 Not Reportable 02/01/19 03:50 Not Reportable 02/01/19 03:50 Not Reportable 02/01/19 03:50 Not Reportable 02/01/19 03:50 Not Reportable 02/01/19 03:50 Not Reportable 02/01/19 03:50 Not Reportable 02/01/19 03:50 Not Reportable 02/01/19 03:50 Not Reportable 02/01/19 03:50 Not Reportable 02/01/19 03:50 Not Reportable 02/01/19 03:50 Not Reportable 02/01/19 03:50 Not Reportable 02/01/19 03:50 Acanthocytes (Spur) Not Reportable 02/01/19 03:50 Rouleaux Not Reportable 02/01/19 03:50 Not Reportable 02/01/19 03:50 Not Reportable 02/01/19 03:50 Not Reportable 02/01/19 03:50 Not Reportable 02/01/19 03:50 Hem Pathologist Commnt No 02/01/19 03:50 PT 12.8 Sec. (12.2-14.9) 02/04/19 15:38 INR 0.91 (0.87-1.13) 02/04/19 15:38 POC ABG pH 7.479 (7.35-7.45) H 01/28/19 19:00 POC ABG pCO2 32.3 (35-45) L 01/28/19 19:00 POC ABG pO2 93 (80-105) 01/28/19 19:00 POC ABG HCO3 24.0 (22-26 mml/L) 01/28/19 19:00 POC ABG Total CO2 25 (23-27mmol/L) 01/28/19 19:00 POC ABG O2 Sat 98 01/28/19 19:00 POC ABG Base Excess 0 ((-2) - (+3)mmol/L) 01/28/19 19:00 21 % 01/28/19 19:00 Sodium 141 mmol/L (137-145) 02/03/19 07:00 Potassium 3.8 mmol/L (3.6-5.0) 02/03/19 07:00 Chloride 104.3 mmol/L (98-107) 02/03/19 07:00 Carbon Dioxide 26 mmol/L (22-30) 02/03/19 07:00 15 mmol/L 02/03/19 07:00 BUN 17 mg/dL (9-20) 02/03/19 07:00 0.6 mg/dL (0.8-1.5) L 02/03/19 07:00 Estimated GFR > 60 ml/min 02/03/19 07:00 28 % 02/03/19 07:00 Glucose 268 mg/dL (75-100) H 02/03/19 07:00 POC Glucose 166 (70-105) H 02/05/19 12:16 Lactic Acid 1.40 mmol/L (0.7-2.0) 01/25/19 18:50 Calcium 8.1 mg/dL (8.4-10.2) L 02/03/19 07:00 Magnesium 1.80 mg/dL (1.7-2.3) 02/01/19 03:50 0.20 mg/dL (0.1-1.2) 01/26/19 04:25 AST 12 units/L (5-40) 01/26/19 04:25 ALT 17 units/L (7-56) 01/26/19 04:25 84 units/L (35-129) 01/26/19 04:25 41.0 umol/L (25-60) 01/31/19 13:26 294 units/L (55-170) H 01/25/19 13:31 CK-MB (CK-2) 2.2 ng/mL (0.0-4.0) 01/25/19 13:31 CK-MB (CK-2) Rel Index 0.7 (0-4) 01/25/19 13:31 0.031 ng/mL (0.00-0.029) H D 01/26/19 04:25 6.4 g/dL (6.3-8.2) 01/26/19 04:25 2.3 g/dL (3.9-5) L 01/26/19 04:25 0.6 % 01/26/19 04:25 Triglycerides 172 mg/dL (2-149) H 01/25/19 13:31 Cholesterol 148 mg/dL (50-199) 01/25/19 13:31 82 mg/dL (50-130) 01/25/19 13:31 30 mg/dL (40-59) L 01/25/19 13:31 4.93 % 01/25/19 13:31 TSH 4.020 mlU/mL (0.270-4.200) 01/25/19 13:31 Free T4 0.89 ng/dL (0.76-1.46) 01/25/19 13:31 Yellow (Yellow) 01/25/19 15:00 Slightly-cloudy (Clear) 01/25/19 15:00 5.0 (5.0-7.0) 01/25/19 15:00 Ur Specific [place] 1.018 (1.003-1.030) 01/25/19 15:00 <15 mg/dl mg/dL (Negative) 01/25/19 15:00 50 mg/dL (Negative) 01/25/19 15:00 Neg mg/dL (Negative) 01/25/19 15:00 Neg (Negative) 01/25/19 15:00 Neg (Negative) 01/25/19 15:00 Neg (Negative) 01/25/19 15:00 4.0 mg/dL (<2.0) 01/25/19 15:00 Ur Leukocyte Esterase Neg (Negative) 01/25/19 15:00 3.0 /HPF (0.0-6.0) 01/25/19 15:00 1.0 /HPF (0.0-6.0) 01/25/19 15:00 U Epithel Cells (Auto) < 1.0 /HPF (0-13.0) 01/25/19 15:00 Hyaline Casts 9 /LPF 01/25/19 15:00 Active Medications - Current Medications Current Medications: Generic Name Dose Route Start Last Admin Trade Name Freq PRN Reason Stop Dose Admin Lipase/Protease/Amylase 1 each 01/26/19 11:[address] 10,500 Unit FEEDTUBE PRN PRN For Clogged Feeding Tube Heparin Sodium (Porcine) 5,000 unit 01/25/19 22:00 02/05/19 09:48 Heparin SUB-Q 5,000 unit Q12HR NIKOLAS Administration Hydralazine HCl 10 mg 02/03/19 22:00 Apresoline IV Q8HR PRN Hypertension Insulin Glargine 45 units 01/29/19 22:00 02/04/19 21:58 Lantus SUB-Q 45 units QHS NIKOLAS Administration Insulin Human Lispro 0 unit 02/05/19 07:30 02/05/19 12:29 Humalog SUB-Q 3 unit ACHS NIKOLAS Administration Protocol Simple Syrup 15 ml 01/26/19 11:47 Simple Syrup FEEDTUBE PRN PRN Hypoglycemia Simple Syrup 30 ml 01/26/19 11:47 Simple Syrup FEEDTUBE PRN PRN Hypoglycemia Sodium Bicarbonate 325 mg 01/26/19 11:47 Sodium Bicarbonate FEEDTUBE PRN PRN For Clogged Feeding Tube Sodium Chloride 10 ml 01/25/19 22:00 02/05/19 09:49 Sodium Chloride Flush Syringe 10 Ml IV 10 ml BID NIKOLAS Administration Sodium Chloride 10 ml 01/25/19 17:46 Sodium Chloride Flush Syringe 10 Ml IV PRN PRN LINE FLUSH Nutrition/Malnutrition Assess - Dietary Evaluation Nutrition/Malnutrition Findings: Nutrition Notes Start: 01/26/19 08:45 Freq: Status: Active Protocol: Document 02/04/19 15:20 RM (Rec: 02/04/19 15:28 RM [id number]) Nutrition Notes Initial or Follow up Reassessment Current Diagnosis Acute Kidney Injury, Hypertension Other Pertinent Diagnosis Hyperkalemia, Acute encephalopathy, Dehydration, Multiple PUs Current Diet Nepo 1.8 at 50 ml/hr Labs/Tests Reviewed Pertinent Medications Reviewed Height 5 ft 6 in Weight 72.5 kg [place] Body Weight (kg) 64.54 BMI 25.7 Subjective/Other Information Observed Nepro infusing at 50 ml/hr. Per nurse pt is tolerating TF. Percent of energy/protein needs met: 100%/100% Burn Absent Trauma Absent #1 Nutrition Diagnosis Inadequate oral intake Diagnosis Progress(for reassessment Continues documentation) Is patient on ventilator? No Is Patient Ambulatory and/or Out of Bed No REE-([facility]-confined to bed) 2762.851 Calculation Used for Recommendations [facility] Additional Notes PRO: 1.0-1.3 g/kg (75-98 g/day ) Fluid: 1500 mL or per MD Nutrition Intervention Nutrition Support: Glucerna 1.2 at 60 ml/hr. Water flush of 100 mls q 4 hrs . Kcal 1,728 Protein (gm) 86 Fluid (mL) 1,159 Goal #1 TF tolerance Goal #2 Meet at least 75% of calorie and protein needs via TF Anticipated Discharge Needs: Unable to determine at this time Follow-Up By: 02/08/19 Additional Comments Follow for new TF
--- NOTE | 2019-02-05 16:26 | Gastroenterology Consultation ---
History of Present Illness - Reason for Consult Consult date: 02/05/19 Neurogenic Dysphagia Requesting physician: MARIETTA REECE - History of Present Illness The history is per the patient's brother Mr Syed. The patient is nonverbal. 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 However, in the last 2-3 months, he has had worsening mental status. The family did not note abnormal swallowing at his facility, but at [facility], he has failed a ST evaluation. He is currently being fed with a Dobhoff without complication. There is no N/V/abdominal pain that has been witnessed. A CT scan shows no recurrent CVA, but significant post-CVA changes/encephalomalacia. Past History Past Medical History: diabetes, hypertension, stroke Past Surgical History: Other (PATTERN ATTENDANT shunt, PEG tube, CCY) Social history: denies: smoking, alcohol abuse Family history: stroke Medications and Allergies Allergies Allergy/AdvReac Type Severity Reaction Status Date / Time Penicillins Allergy Unknown Verified 02/03/19 11:10 Home Medications Medication Instructions Recorded Confirmed Last Taken Type Citalopram Hydrobromide [celeXA] 20 mg PO DAILY 02/07/16 01/25/19 02/06/16 History Acetaminophen [Tylenol] 650 mg PO Q4HR PRN 01/25/19 01/25/19 Unknown History AtorvaSTATin [Lipitor] 40 mg PO QHS 01/25/19 01/25/19 Unknown History Insulin Lispro [HumaLOG VIAL] See Protocol SUB-Q BID 01/25/19 01/25/19 Unknown H istory LORazepam [Ativan] 0.5 mg PO Q8H PRN 01/25/19 01/25/19 Unknown History Latanoprost [Xalatan] 1 drop OU HS 01/25/19 01/25/19 Unknown History Lisinopril [Zestril] 20 mg PO QDAY 01/25/19 01/25/19 Unknown History Magnesium Oxide [Mag-Ox] 400 mg PO QDAY 01/25/19 01/25/19 Unknown History Quetiapine Fumarate [SEROquel] 50 mg PO TID 01/25/19 01/25/19 Unknown History Thiamine [Vitamin B-1] 100 mg PO AC 01/25/19 01/25/19 Unknown History Timolol 0.5% [Timoptic] 1 drop OU BID 01/25/19 01/25/19 Unknown History hydroCHLOROthiazide [HCTZ] 25 mg PO QDAY 01/25/19 01/25/19 Unknown History Active Meds: Active Medications Lipase/Protease/Amylase (Colleen Dior 10,500 Unit) 1 each FEEDTUBE PRN PRN PRN Reason: For Clogged Feeding Tube Heparin Sodium (Porcine) (Heparin) 5,000 unit SUB-Q Q12HR [facility] Last Admin: 02/05/19 09:48 Dose: 5,000 unit Documented by: Hydralazine HCl (Apresoline) 10 mg IV Q8HR PRN PRN Reason: Hypertension Insulin Glargine (Lantus) 45 units SUB-Q QHS [facility] Last Admin: 02/04/19 21:58 Dose: 45 units Documented by: Insulin Human Lispro (Humalog) 0 unit SUB-Q ACHS [facility]; Protocol Last Admin: 02/05/19 12:29 Dose: 3 unit Documented by: Simple Syrup (Simple Syrup) 15 ml FEEDTUBE PRN PRN PRN Reason: Hypoglycemia Simple Syrup (Simple Syrup) 30 ml FEEDTUBE PRN PRN PRN Reason: Hypoglycemia Sodium Bicarbonate (Sodium Bicarbonate) 325 mg FEEDTUBE PRN PRN PRN Reason: For Clogged Feeding Tube Sodium Chloride (Sodium Chloride Flush Syringe 10 Ml) 10 ml IV BID [facility] Last Admin: 02/05/19 09:49 Dose: 10 ml Documented by: Sodium Chloride (Sodium Chloride Flush Syringe 10 Ml) 10 ml IV PRN PRN PRN Reason: LINE FLUSH I HAVE REVIEWED AND RECONCILED MEDICATIONS Review of Systems - Review of Systems ROS unobtainable: due to mental status Exam - Constitutional Vital Signs: Temp Pulse Resp BP Pulse Ox 97.9 F 96 H 18 113/56 98 02/05/19 11:57 02/05/19 14:49 02/05/19 11:57 02/05/19 11:57 02/05/19 11:57 General appearance: no acute distress - EENT Eyes: PERRL, EOM intact ENT: clear oral mucosa, no thrush - Neck Neck: supple, normal ROM - Respiratory Respiratory effort: normal Respiratory: bilateral: CTA - Cardiovascular Rhythm: regular Heart Sounds: Present: S1 & S2 Extremities: no ischemia, No edema - Gastrointestinal General gastrointestinal: Present: soft, non-tender, non-distended, other (PEG site healed) - Integumentary Integumentary: Present: clear, warm, dry - Neurologic Neurological: other (Unable to assess 2nd mental status) - Labs CBC & Chem 7: 02/03/19 07:00 02/03/19 07:00 Lab Results: Laboratory Results - last 24 hr 02/04/19 02/04/19 02/04/19 15:38 18:03 18:35 PT 12.8 INR 0.91 POC Glucose 180 H 146 H 02/04/19 02/05/19 02/05/19 21:35 01:31 05:56 PT INR POC Glucose 118 H 154 H 182 H 02/05/19 02/05/19 07:58 12:16 PT INR POC Glucose 210 H 166 H Assessment and Plan - Patient Problems (1) Neurogenic dysphagia Current Visit: Yes Status: Acute Plan to address problem: - Discussed PEG with patient's brother Alonzo Syed. - Mother is POA, but the family is in agreement that a PEG is OK. - For now, continue Dobhoff feeds; will plan EGD/PEG Friday prior to discharge.
[2019-02-05] MEDS: LANTUS SUB-Q SCH (22:09)
[2019-02-06] MEDS: HumaLOG SUB-Q SCH ×4 (08:48→21:52)
--- NOTE | 2019-02-06 09:07 | Progress Note ---
Assessment and Plan Assessment and plan: Metabolic encephalopathy. Patient remains confused requiring restraints. Continue to treat underlying causes of hypernatremia. Neurology following. Head CT negative. Obtain MRI Brain Hypernatremia. Now resolved. Acute renal failure/MYRTLE. Resolved Dysphagia, Spoke to mother Di Syed, about PEG tube placement and she is agreeable. Hyperlipidemia. Continue statins. Hypokalemia. Replete potassium as needed. Hypertension. Continue antihypertensive medications. Diabetes mellitus type 2. Continue Accu-Cheks qac hs, Sliding scale regular insulin and Lantus History Interval history: Altered mental status Dysphagia Hospitalist Physical - Physical exam Narrative exam: Gen: Not in acute distress, lying in bed HEENT: Normocephalic, atraumatic Neck: supple, no JVD Heart: S1 and S2 reg, no murmurs, rubs or gallop Lungs: Clear, no crackles Abd: soft, non tender, non distended, normal BS Ext: No edema, no clubbing, no cyanosis, Neuro: Lethargic - Constitutional Vitals: Temp Pulse Resp BP Pulse Ox 98.7 F 105 H 20 117/78 98 02/06/19 05:23 02/06/19 05:23 02/06/19 05:23 02/06/19 05:23 02/06/19 05:23 General appearance: Present: no acute distress Results - Labs CBC & Chem 7: 02/03/19 07:00 02/03/19 07:00 Labs: Laboratory Last Values WBC 6.2 K/mm3 (4.5-11.0) 02/03/19 07:00 RBC 3.91 M/mm3 (3.65-5.03) 02/03/19 07:00 Hgb 9.7 gm/dl (11.8-15.2) L 02/03/19 07:00 Hct 29.7 % (35.5-45.6) L 02/03/19 07:00 MCV 76 fl (84-94) L 02/03/19 07:00 MCH 25 pg (28-32) L 02/03/19 07:00 MCHC 33 % (32-34) 02/03/19 07:00 RDW 17.0 % (13.2-15.2) H 02/03/19 07:00 Plt Count 195 K/mm3 (140-440) 02/03/19 07:00 Lymph % (Auto) 19.1 % (13.4-35.0) 01/28/19 06:04 Grand % (Auto) 8.7 % (0.0-7.3) H 01/28/19 06:04 Eos % (Auto) 3.1 % (0.0-4.3) 01/28/19 06:04 Baso % (Auto) 0.3 % (0.0-1.8) 01/28/19 06:04 Lymph # 1.3 K/mm3 (1.2-5.4) 01/28/19 06:04 Grand # 0.6 K/mm3 (0.0-0.8) 01/28/19 06:04 Eos # 0.2 K/mm3 (0.0-0.4) 01/28/19 06:04 Baso # 0.0 K/mm3 (0.0-0.1) 01/28/19 06:04 Add Manual Diff Complete 02/01/19 03:50 Total Counted 100 02/01/19 03:50 Seg Neutrophils % 68.8 % (40.0-70.0) 01/28/19 06:04 Seg Neuts % (Manual) 78.0 % (40.0-70.0) H 02/01/19 03:50 1.0 % 02/01/19 03:50 16.0 % (13.4-35.0) 02/01/19 03:50 Reactive Lymphs % (Man) 0 % 02/01/19 03:50 1.0 % (0.0-7.3) 02/01/19 03:50 4.0 % (0.0-4.3) 02/01/19 03:50 0 % (0.0-1.8) 02/01/19 03:50 0 % 02/01/19 03:50 0 % 02/01/19 03:50 0 % 02/01/19 03:50 0 % 02/01/19 03:50 Nucleated RBC % Not Reportable 02/01/19 03:50 Seg Neutrophils # 4.8 K/mm3 (1.8-7.7) 01/28/19 06:04 Seg Neutrophils # Man 6.4 K/mm3 (1.8-7.7) 02/01/19 03:50 Band Neutrophils # 0.1 K/mm3 02/01/19 03:50 1.3 K/mm3 (1.2-5.4) 02/01/19 03:50 Abs React Lymphs (Man) 0.0 K/mm3 02/01/19 03:50 0.1 K/mm3 (0.0-0.8) 02/01/19 03:50 0.3 K/mm3 (0.0-0.4) 02/01/19 03:50 0.0 K/mm3 (0.0-0.1) 02/01/19 03:50 0.0 K/mm3 02/01/19 03:50 0.0 K/mm3 02/01/19 03:50 0.0 K/mm3 02/01/19 03:50 Blast Cells # 0.0 K/mm3 02/01/19 03:50 WBC Morphology Not Reportable 02/01/19 03:50 Hypersegmented Neuts Not Reportable 02/01/19 03:50 Hyposegmented Neuts Not Reportable 02/01/19 03:50 Hypogranular Neuts Not Reportable 02/01/19 03:50 Not Reportable 02/01/19 03:50 Not Reportable 02/01/19 03:50 Not Reportable 02/01/19 03:50 Not Reportable 02/01/19 03:50 Not Reportable 02/01/19 03:50 Not Reportable 02/01/19 03:50 Appears normal 02/01/19 03:50 Not Reportable 02/01/19 03:50 Plt Clumps, EDTA Not Reportable 02/01/19 03:50 Not Reportable 02/01/19 03:50 Not Reportable 02/01/19 03:50 Not Reportable 02/01/19 03:50 Plt Morphology Comment Not Reportable 02/01/19 03:50 RBC Morphology Not Reportable 02/01/19 03:50 Dimorphic RBCs Not Reportable 02/01/19 03:50 Not Reportable 02/01/19 03:50 1+ 02/01/19 03:50 Not Reportable 02/01/19 03:50 1+ 02/01/19 03:50 Not Reportable 02/01/19 03:50 Not Reportable 02/01/19 03:50 Not Reportable 02/01/19 03:50 Not Reportable 02/01/19 03:50 Not Reportable 02/01/19 03:50 Not Reportable 02/01/19 03:50 Not Reportable 02/01/19 03:50 Not Reportable 02/01/19 03:50 Not Reportable 02/01/19 03:50 Not Reportable 02/01/19 03:50 Not Reportable 02/01/19 03:50 Not Reportable 02/01/19 03:50 Not Reportable 02/01/19 03:50 Not Reportable 02/01/19 03:50 Not Reportable 02/01/19 03:50 Acanthocytes (Spur) Not Reportable 02/01/19 03:50 Rouleaux Not Reportable 02/01/19 03:50 Not Reportable 02/01/19 03:50 Not Reportable 02/01/19 03:50 Not Reportable 02/01/19 03:50 Not Reportable 02/01/19 03:50 Hem Pathologist Commnt No 02/01/19 03:50 PT 12.8 Sec. (12.2-14.9) 02/04/19 15:38 INR 0.91 (0.87-1.13) 02/04/19 15:38 POC ABG pH 7.479 (7.35-7.45) H 01/28/19 19:00 POC ABG pCO2 32.3 (35-45) L 01/28/19 19:00 POC ABG pO2 93 (80-105) 01/28/19 19:00 POC ABG HCO3 24.0 (22-26 mml/L) 01/28/19 19:00 POC ABG Total CO2 25 (23-27mmol/L) 01/28/19 19:00 POC ABG O2 Sat 98 01/28/19 19:00 POC ABG Base Excess 0 ((-2) - (+3)mmol/L) 01/28/19 19:00 21 % 01/28/19 19:00 Sodium 141 mmol/L (137-145) 02/03/19 07:00 Potassium 3.8 mmol/L (3.6-5.0) 02/03/19 07:00 Chloride 104.3 mmol/L (98-107) 02/03/19 07:00 Carbon Dioxide 26 mmol/L (22-30) 02/03/19 07:00 15 mmol/L 02/03/19 07:00 BUN 17 mg/dL (9-20) 02/03/19 07:00 0.6 mg/dL (0.8-1.5) L 02/03/19 07:00 Estimated GFR > 60 ml/min 02/03/19 07:00 28 % 02/03/19 07:00 Glucose 268 mg/dL (75-100) H 02/03/19 07:00 POC Glucose 168 (70-105) H 02/06/19 07:36 Lactic Acid 1.40 mmol/L (0.7-2.0) 01/25/19 18:50 Calcium 8.1 mg/dL (8.4-10.2) L 02/03/19 07:00 Magnesium 1.80 mg/dL (1.7-2.3) 02/01/19 03:50 0.20 mg/dL (0.1-1.2) 01/26/19 04:25 AST 12 units/L (5-40) 01/26/19 04:25 ALT 17 units/L (7-56) 01/26/19 04:25 84 units/L (35-129) 01/26/19 04:25 41.0 umol/L (25-60) 01/31/19 13:26 294 units/L (55-170) H 01/25/19 13:31 CK-MB (CK-2) 2.2 ng/mL (0.0-4.0) 01/25/19 13:31 CK-MB (CK-2) Rel Index 0.7 (0-4) 01/25/19 13:31 0.031 ng/mL (0.00-0.029) H D 01/26/19 04:25 6.4 g/dL (6.3-8.2) 01/26/19 04:25 2.3 g/dL (3.9-5) L 01/26/19 04:25 0.6 % 01/26/19 04:25 Triglycerides 172 mg/dL (2-149) H 01/25/19 13:31 Cholesterol 148 mg/dL (50-199) 01/25/19 13:31 82 mg/dL (50-130) 01/25/19 13:31 30 mg/dL (40-59) L 01/25/19 13:31 4.93 % 01/25/19 13:31 TSH 4.020 mlU/mL (0.270-4.200) 01/25/19 13:31 Free T4 0.89 ng/dL (0.76-1.46) 01/25/19 13:31 Yellow (Yellow) 01/25/19 15:00 Slightly-cloudy (Clear) 01/25/19 15:00 5.0 (5.0-7.0) 01/25/19 15:00 Ur Specific [place] 1.018 (1.003-1.030) 01/25/19 15:00 <15 mg/dl mg/dL (Negative) 01/25/19 15:00 50 mg/dL (Negative) 01/25/19 15:00 Neg mg/dL (Negative) 01/25/19 15:00 Neg (Negative) 01/25/19 15:00 Neg (Negative) 01/25/19 15:00 Neg (Negative) 01/25/19 15:00 4.0 mg/dL (<2.0) 01/25/19 15:00 Ur Leukocyte Esterase Neg (Negative) 01/25/19 15:00 3.0 /HPF (0.0-6.0) 01/25/19 15:00 1.0 /HPF (0.0-6.0) 01/25/19 15:00 U Epithel Cells (Auto) < 1.0 /HPF (0-13.0) 01/25/19 15:00 Hyaline Casts 9 /LPF 01/25/19 15:00 Active Medications - Current Medications Current Medications: Generic Name Dose Route Start Last Admin Trade Name Freq PRN Reason Stop Dose Admin Lipase/Protease/Amylase 1 each 01/26/19 11:[address] 10,500 Unit FEEDTUBE PRN PRN For Clogged Feeding Tube Heparin Sodium (Porcine) 5,000 unit 01/25/19 22:00 02/05/19 22:08 Heparin SUB-Q 5,000 unit Q12HR NIKOLAS Administration Hydralazine HCl 10 mg 02/03/19 22:00 Apresoline IV Q8HR PRN Hypertension Insulin Glargine 45 units 01/29/19 22:00 02/05/19 22:09 Lantus SUB-Q 45 units QHS NIKOLAS Administration Insulin Human Lispro 0 unit 02/05/19 07:30 02/06/19 08:48 Humalog SUB-Q 3 unit ACHS NIKOLAS Administration Protocol Simple Syrup 15 ml 01/26/19 11:47 Simple Syrup FEEDTUBE PRN PRN Hypoglycemia Simple Syrup 30 ml 01/26/19 11:47 Simple Syrup FEEDTUBE PRN PRN Hypoglycemia Sodium Bicarbonate 325 mg 01/26/19 11:47 Sodium Bicarbonate FEEDTUBE PRN PRN For Clogged Feeding Tube Sodium Chloride 10 ml 01/25/19 22:00 02/05/19 22:11 Sodium Chloride Flush Syringe 10 Ml IV 10 ml BID NIKOLAS Administration Sodium Chloride 10 ml 01/25/19 17:46 Sodium Chloride Flush Syringe 10 Ml IV PRN PRN LINE FLUSH Nutrition/Malnutrition Assess - Dietary Evaluation Nutrition/Malnutrition Findings: Nutrition Notes Start: 01/26/19 08:45 Freq: Status: Active Protocol: Document 02/04/19 15:20 RM (Rec: 02/04/19 15:28 RM [id number]) Nutrition Notes Initial or Follow up Reassessment Current Diagnosis Acute Kidney Injury, Hypertension Other Pertinent Diagnosis Hyperkalemia, Acute encephalopathy, Dehydration, Multiple PUs Current Diet Nepo 1.8 at 50 ml/hr Labs/Tests Reviewed Pertinent Medications Reviewed Height 5 ft 6 in Weight 72.5 kg [place] Body Weight (kg) 64.54 BMI 25.7 Subjective/Other Information Observed Nepro infusing at 50 ml/hr. Per nurse pt is tolerating TF. Percent of energy/protein needs met: 100%/100% Burn Absent Trauma Absent #1 Nutrition Diagnosis Inadequate oral intake Diagnosis Progress(for reassessment Continues documentation) Is patient on ventilator? No Is Patient Ambulatory and/or Out of Bed No REE-([facility]-confined to bed) [phone] Calculation Used for Recommendations [facility] Additional Notes PRO: 1.0-1.3 g/kg (75-98 g/day ) Fluid: 1500 mL or per MD Nutrition Intervention Nutrition Support: Glucerna 1.2 at 60 ml/hr. Water flush of 100 mls q 4 hrs . Kcal 1,728 Protein (gm) 86 Fluid (mL) 1,159 Goal #1 TF tolerance Goal #2 Meet at least 75% of calorie and protein needs via TF Anticipated Discharge Needs: Unable to determine at this time Follow-Up By: 02/08/19 Additional Comments Follow for new TF
--- NOTE | 2019-02-06 09:42 | Progress Note ---
Assessment and Plan Acute metabolic encephalopathy MYRTLE (acute kidney injury) Acute hypernatremia Hyperkalemia Metabolic acidosis with increased anion gap and reduced excretion of inorganic acids Sepsis IDDM (insulin dependent diabetes mellitus) HTN (hypertension) HLD (hyperlipidemia) BPH (benign prostatic hyperplasia) - continue supplemental oxygen and wean to keep O2 sat's > 90% - continue bronchodilators with pulmonary hygiene per RT - continue aspiration precautions - enteral nutrition as tolerated - continue volume resuscitation re: prerenal numbers - azotemia per nephrology otherwise - hypernatremia has resolved - continue glycemic control with SSI for target BG < 180mg/dl - s/p AB's course - continue other care per attending/other consultants ... discharge planning ok respiratory-stahl ... re-evaluate in am & prn Subjective Date of service: 02/06/19 Principal diagnosis: Ac. Encephalopathy; MYRTLE; Hypernatremia; Hyperkalemia; IDDM Interval history: Patient is seen today for: Acute metabolic encephalopathy; MYRTLE (acute kidney injury); Acute hypernatremia; Hyperkalemia; Metabolic acidosis with increased anion gap and reduced excretion of inorganic acids; Severe Sepsis; IDDM (insulin dependent diabetes mellitus) Seen and examined at bedside; 24hour events reviewed; nursing and respiratory care staff consulted; no adverse overnight events reported to me; resting peacefully in bed; remains on supplemental oxygen; somnolent to lethargic; no emesis or overt aspiration reported; AMS is persistent Objective Vital Signs - 12hr 02/05/19 02/06/19 22:41 05:23 Temperature 98.4 F 98.7 F Pulse Rate 101 H 105 H Respiratory 20 20 Rate Blood Pressure 137/81 117/78 O2 Sat by Pulse 100 98 Oximetry Constitutional: no acute distress, other (somnolent, not following commands) Eyes: non-icteric ENT: oropharynx moist Neck: supple, no lymphadenopathy, no JVD, other (no thyromegaly) Effort: normal Ascultation: Bilateral: clear, diminished breath sounds Percussion: Bilateral: not dull Cardiovascular: regular rate and rhythm Gastrointestinal: normoactive bowel sounds, soft, non-tender, non-distended Integumentary: normal Extremities: no cyanosis, no edema, pulses normal, no ischemia or petechiae Neurologic: non-focal exam, pupils equal and round, other (hemiparesis, more awake and alert) Psychiatric: other (Can Not asses due to his mental status.) CBC and BMP: 02/03/19 07:00 02/06/19 13:26 ABG, PT/INR, D-dimer: ABG POC ABG pH 7.479 (7.35-7.45) H 01/28/19 19:00 POC ABG pCO2 32.3 (35-45) L 01/28/19 19:00 POC ABG pO2 93 (80-105) 01/28/19 19:00 POC ABG HCO3 24.0 (22-26 mml/L) 01/28/19 19:00 POC ABG Total CO2 25 (23-27mmol/L) 01/28/19 19:00 POC ABG O2 Sat 98 01/28/19 19:00 PT/INR, D-dimer PT 12.8 Sec. (12.2-14.9) 02/04/19 15:38 INR 0.91 (0.87-1.13) 02/04/19 15:38 Abnormal lab findings: Abnormal Labs 01/25/19 01/25/19 01/25/19 13:31 13:31 13:31 WBC 12.0 H RBC 6.00 H Hgb Hct 47.7 H MCV 80 L MCH 25 L MCHC 31 L RDW 18.1 H Lymph % (Auto) 10.4 L Yates % (Auto) 9.3 H Lymph # Yates # 1.1 H Baso # Seg Neutrophils % 78.5 H Seg Neuts % (Manual) Nucleated RBC % Seg Neutrophils # 9.5 H POC ABG pH POC ABG pCO2 Sodium 159 H Potassium 6.0 H Chloride 119.0 H Carbon Dioxide BUN 185 H Creatinine 5.7 H D Glucose 433 H POC Glucose Lactic Acid 2.60 H* Calcium Total Creatine Kinase 294 H Troponin T 0.080 H Albumin 2.6 L Triglycerides 172 H HDL Cholesterol 30 L 01/25/19 01/25/19 01/25/19 16:03 16:03 17:11 WBC RBC Hgb Hct MCV MCH MCHC RDW Lymph % (Auto) Yates % (Auto) Lymph # Yates # Baso # Seg Neutrophils % Seg Neuts % (Manual) Nucleated RBC % Seg Neutrophils # POC ABG pH POC ABG pCO2 Sodium Potassium Chloride Carbon Dioxide BUN Creatinine Glucose POC Glucose 346 H Lactic Acid 2.20 H* 2.30 H* Calcium Total Creatine Kinase Troponin T Albumin Triglycerides HDL Cholesterol 01/25/19 01/25/19 01/26/19 18:50 23:08 00:22 WBC RBC Hgb Hct MCV MCH MCHC RDW Lymph % (Auto) Yates % (Auto) Lymph # Yates # Baso # Seg Neutrophils % Seg Neuts % (Manual) Nucleated RBC % Seg Neutrophils # POC ABG pH POC ABG pCO2 Sodium 162 H* Potassium Chloride 125.2 H Carbon Dioxide BUN 180 H Creatinine 5.1 H Glucose 438 H POC Glucose 480 H Lactic Acid Calcium Total Creatine Kinase Troponin T 0.045 H D Albumin Triglycerides HDL Cholesterol 01/26/19 01/26/19 01/26/19 02:16 04:25 04:25 WBC RBC 5.21 H Hgb Hct MCV 80 L MCH 25 L MCHC 31 L RDW 18.0 H Lymph % (Auto) 8.2 L Yates % (Auto) 7.6 H Lymph # 0.8 L Yates # Baso # 0.2 H Seg Neutrophils % 81.6 H Seg Neuts % (Manual) Nucleated RBC % Seg Neutrophils # 8.3 H POC ABG pH POC ABG pCO2 Sodium 158 H Potassium Chloride 122.9 H Carbon Dioxide 21 L BUN 163 H Creatinine 3.9 H Glucose 465 H POC Glucose 462 H Lactic Acid Calcium 7.8 L Total Creatine Kinase Troponin T Albumin 2.3 L Triglycerides HDL Cholesterol 01/26/19 01/26/19 01/26/19 04:25 05:33 10:08 WBC RBC Hgb Hct MCV MCH MCHC RDW Lymph % (Auto) Yates % (Auto) Lymph # Yates # Baso # Seg Neutrophils % Seg Neuts % (Manual) Nucleated RBC % Seg Neutrophils # POC ABG pH POC ABG pCO2 Sodium 160 H Potassium Chloride 123.9 H Carbon Dioxide 19 L BUN 161 H Creatinine 3.9 H Glucose 468 H POC Glucose 309 H 316 H Lactic Acid Calcium 7.8 L Total Creatine Kinase Troponin T 0.031 H D Albumin Triglycerides HDL Cholesterol 01/26/19 01/26/19 01/27/19 14:30 16:11 03:18 WBC RBC Hgb Hct MCV MCH MCHC RDW Lymph % (Auto) Yates % (Auto) Lymph # Yates # Baso # Seg Neutrophils % Seg Neuts % (Manual) Nucleated RBC % Seg Neutrophils # POC ABG pH POC ABG pCO2 Sodium 160 H Potassium 3.4 L D Chloride 124.8 H Carbon Dioxide BUN 141 H Creatinine 2.9 H Glucose 126 H POC Glucose 167 H 184 H Lactic Acid Calcium 8.3 L Total Creatine Kinase Troponin T Albumin Triglycerides HDL Cholesterol 01/27/19 01/27/19 01/27/19 06:23 06:33 06:33 WBC RBC Hgb Hct MCV 79 L MCH 25 L MCHC 31 L RDW 17.7 H Lymph % (Auto) Yates % (Auto) 8.1 H Lymph # Yates # Baso # Seg Neutrophils % 71.1 H Seg Neuts % (Manual) Nucleated RBC % Seg Neutrophils # POC ABG pH POC ABG pCO2 Sodium 157 H Potassium Chloride 121.4 H Carbon Dioxide BUN 117 H Creatinine 1.9 H Glucose 200 H POC Glucose 219 H Lactic Acid Calcium 8.3 L Total Creatine Kinase Troponin T Albumin Triglycerides HDL Cholesterol 01/27/19 01/27/19 01/27/19 11:13 12:46 16:10 WBC RBC Hgb Hct MCV MCH MCHC RDW Lymph % (Auto) Yates % (Auto) Lymph # Yates # Baso # Seg Neutrophils % Seg Neuts % (Manual) Nucleated RBC % Seg Neutrophils # POC ABG pH POC ABG pCO2 Sodium Potassium Chloride Carbon Dioxide BUN Creatinine Glucose POC Glucose 200 H 205 H 230 H Lactic Acid Calcium Total Creatine Kinase Troponin T Albumin Triglycerides HDL Cholesterol 01/28/19 01/28/19 01/28/19 00:09 06:04 06:04 WBC RBC Hgb 11.5 L Hct MCV 77 L MCH 25 L MCHC RDW 17.4 H Lymph % (Auto) Yates % (Auto) 8.7 H Lymph # Yates # Baso # Seg Neutrophils % Seg Neuts % (Manual) Nucleated RBC % Seg Neutrophils # POC ABG pH POC ABG pCO2 Sodium 159 H Potassium 3.3 L Chloride 123.1 H Carbon Dioxide BUN 75 H Creatinine Glucose 310 H POC Glucose 177 H Lactic Acid Calcium Total Creatine Kinase Troponin T Albumin Triglycerides HDL Cholesterol 01/28/19 01/28/19 01/28/19 06:42 12:28 15:10 WBC RBC Hgb Hct MCV MCH MCHC RDW Lymph % (Auto) Yates % (Auto) Lymph # Yates # Baso # Seg Neutrophils % Seg Neuts % (Manual) Nucleated RBC % Seg Neutrophils # POC ABG pH POC ABG pCO2 Sodium Potassium Chloride Carbon Dioxide BUN Creatinine Glucose POC Glucose 384 H 280 H 282 H Lactic Acid Calcium Total Creatine Kinase Troponin T Albumin Triglycerides HDL Cholesterol 01/28/19 01/28/19 01/28/19 18:54 19:00 21:44 WBC RBC Hgb Hct MCV MCH MCHC RDW Lymph % (Auto) Yates % (Auto) Lymph # Yates # Baso # Seg Neutrophils % Seg Neuts % (Manual) Nucleated RBC % Seg Neutrophils # POC ABG pH 7.479 H POC ABG pCO2 32.3 L Sodium Potassium Chloride Carbon Dioxide BUN Creatinine Glucose POC Glucose 189 H 179 H Lactic Acid Calcium Total Creatine Kinase Troponin T Albumin Triglycerides HDL Cholesterol 01/29/19 01/29/19 01/29/19 01:48 04:37 05:38 WBC RBC Hgb Hct MCV MCH MCHC RDW Lymph % (Auto) Yates % (Auto) Lymph # Yates # Baso # Seg Neutrophils % Seg Neuts % (Manual) Nucleated RBC % Seg Neutrophils # POC ABG pH POC ABG pCO2 Sodium 164 H* Potassium 3.5 L Chloride 128.9 H Carbon Dioxide BUN 54 H Creatinine Glucose 271 H POC Glucose 238 H 248 H Lactic Acid Calcium Total Creatine Kinase Troponin T Albumin Triglycerides HDL Cholesterol 01/29/19 01/29/19 01/29/19 10:26 13:19 17:57 WBC RBC Hgb Hct MCV MCH MCHC RDW Lymph % (Auto) Yates % (Auto) Lymph # Yates # Baso # Seg Neutrophils % Seg Neuts % (Manual) Nucleated RBC % Seg Neutrophils # POC ABG pH POC ABG pCO2 Sodium Potassium Chloride Carbon Dioxide BUN Creatinine Glucose POC Glucose 288 H 301 H 242 H Lactic Acid Calcium Total Creatine Kinase Troponin T Albumin Triglycerides HDL Cholesterol 01/29/19 01/30/19 01/30/19 20:25 01:51 05:23 WBC RBC Hgb Hct MCV MCH MCHC RDW Lymph % (Auto) Yates % (Auto) Lymph # Yates # Baso # Seg Neutrophils % Seg Neuts % (Manual) Nucleated RBC % Seg Neutrophils # POC ABG pH POC ABG pCO2 Sodium Potassium Chloride Carbon Dioxide BUN Creatinine Glucose POC Glucose 223 H 229 H 218 H Lactic Acid Calcium Total Creatine Kinase Troponin T Albumin Triglycerides HDL Cholesterol 01/30/19 01/30/19 01/30/19 07:16 10:26 14:24 WBC RBC Hgb Hct MCV MCH MCHC RDW Lymph % (Auto) Yates % (Auto) Lymph # Yates # Baso # Seg Neutrophils % Seg Neuts % (Manual) Nucleated RBC % Seg Neutrophils # POC ABG pH POC ABG pCO2 Sodium 155 H D Potassium 3.2 L Chloride 118.4 H Carbon Dioxide BUN 40 H Creatinine Glucose 246 H POC Glucose 257 H 240 H Lactic Acid Calcium 8.3 L Total Creatine Kinase Troponin T Albumin Triglycerides HDL Cholesterol 01/30/19 01/30/19 01/30/19 18:30 20:44 23:38 WBC RBC Hgb Hct MCV MCH MCHC RDW Lymph % (Auto) Yates % (Auto) Lymph # Yates # Baso # Seg Neutrophils % Seg Neuts % (Manual) Nucleated RBC % Seg Neutrophils # POC ABG pH POC ABG pCO2 Sodium Potassium Chloride Carbon Dioxide BUN Creatinine Glucose POC Glucose 327 H 300 H 279 H Lactic Acid Calcium Total Creatine Kinase Troponin T Albumin Triglycerides HDL Cholesterol 01/31/19 01/31/19 01/31/19 01:57 04:42 04:42 WBC RBC Hgb 10.1 L Hct 31.7 L MCV 79 L MCH 25 L MCHC RDW 17.4 H Lymph % (Auto) Yates % (Auto) Lymph # Yates # Baso # Seg Neutrophils % Seg Neuts % (Manual) 75.0 H Nucleated RBC % 2.0 H Seg Neutrophils # POC ABG pH POC ABG pCO2 Sodium 147 H D Potassium 3.2 L Chloride 110.0 H Carbon Dioxide BUN 28 H Creatinine Glucose 261 H POC Glucose 270 H Lactic Acid Calcium 7.8 L Total Creatine Kinase Troponin T Albumin Triglycerides HDL Cholesterol 01/31/19 01/31/19 01/31/19 05:10 08:46 17:10 WBC RBC Hgb Hct MCV MCH MCHC RDW Lymph % (Auto) Yates % (Auto) Lymph # Yates # Baso # Seg Neutrophils % Seg Neuts % (Manual) Nucleated RBC % Seg Neutrophils # POC ABG pH POC ABG pCO2 Sodium Potassium Chloride Carbon Dioxide BUN Creatinine Glucose POC Glucose 239 H 242 H 298 H Lactic Acid Calcium Total Creatine Kinase Troponin T Albumin Triglycerides HDL Cholesterol 01/31/19 02/01/19 02/01/19 21:10 02:17 03:50 WBC RBC Hgb Hct MCV MCH MCHC RDW Lymph % (Auto) Yates % (Auto) Lymph # Yates # Baso # Seg Neutrophils % Seg Neuts % (Manual) Nucleated RBC % Seg Neutrophils # POC ABG pH POC ABG pCO2 Sodium 146 H Potassium Chloride 110.9 H Carbon Dioxide 21 L BUN 26 H Creatinine 0.7 L Glucose 240 H POC Glucose 304 H 240 H Lactic Acid Calcium 8.3 L Total Creatine Kinase Troponin T Albumin Triglycerides HDL Cholesterol 02/01/19 02/01/19 02/01/19 03:50 05:35 10:11 WBC RBC Hgb 10.2 L Hct 31.4 L MCV 78 L MCH 25 L MCHC RDW 16.9 H Lymph % (Auto) Yates % (Auto) Lymph # Yates # Baso # Seg Neutrophils % Seg Neuts % (Manual) 78.0 H Nucleated RBC % Seg Neutrophils # POC ABG pH POC ABG pCO2 Sodium Potassium Chloride Carbon Dioxide BUN Creatinine Glucose POC Glucose 208 H 186 H Lactic Acid Calcium Total Creatine Kinase Troponin T Albumin Triglycerides HDL Cholesterol 02/01/19 02/01/19 02/01/19 14:35 17:25 20:44 WBC RBC Hgb Hct MCV MCH MCHC RDW Lymph % (Auto) Yates % (Auto) Lymph # Yates # Baso # Seg Neutrophils % Seg Neuts % (Manual) Nucleated RBC % Seg Neutrophils # POC ABG pH POC ABG pCO2 Sodium Potassium Chloride Carbon Dioxide BUN Creatinine Glucose POC Glucose 222 H 193 H 204 H Lactic Acid Calcium Total Creatine Kinase Troponin T Albumin Triglycerides HDL Cholesterol 02/02/19 02/02/19 02/02/19 07:17 07:26 12:11 WBC RBC Hgb Hct MCV MCH MCHC RDW Lymph % (Auto) Yates % (Auto) Lymph # Yates # Baso # Seg Neutrophils % Seg Neuts % (Manual) Nucleated RBC % Seg Neutrophils # POC ABG pH POC ABG pCO2 Sodium Potassium 3.3 L D Chloride 107.8 H Carbon Dioxide BUN Creatinine 0.6 L Glucose 117 H POC Glucose 110 H 115 H Lactic Acid Calcium 7.9 L Total Creatine Kinase Troponin T Albumin Triglycerides HDL Cholesterol 02/02/19 02/02/19 02/02/19 16:10 18:30 18:50 WBC RBC Hgb Hct MCV MCH MCHC RDW Lymph % (Auto) Yates % (Auto) Lymph # Yates # Baso # Seg Neutrophils % Seg Neuts % (Manual) Nucleated RBC % Seg Neutrophils # POC ABG pH POC ABG pCO2 Sodium Potassium Chloride Carbon Dioxide BUN Creatinine Glucose POC Glucose 182 H 200 H 198 H Lactic Acid Calcium Total Creatine Kinase Troponin T Albumin Triglycerides HDL Cholesterol 02/03/19 02/03/19 02/03/19 00:40 06:50 07:00 WBC RBC Hgb Hct MCV MCH MCHC RDW Lymph % (Auto) Yates % (Auto) Lymph # Yates # Baso # Seg Neutrophils % Seg Neuts % (Manual) Nucleated RBC % Seg Neutrophils # POC ABG pH POC ABG pCO2 Sodium Potassium Chloride Carbon Dioxide BUN Creatinine 0.6 L Glucose 268 H POC Glucose 212 H 260 H Lactic Acid Calcium 8.1 L Total Creatine Kinase Troponin T Albumin Triglycerides HDL Cholesterol 02/03/19 02/03/19 02/03/19 07:00 08:23 12:49 WBC RBC Hgb 9.7 L Hct 29.7 L MCV 76 L MCH 25 L MCHC RDW 17.0 H Lymph % (Auto) Yates % (Auto) Lymph # Yates # Baso # Seg Neutrophils % Seg Neuts % (Manual) Nucleated RBC % Seg Neutrophils # POC ABG pH POC ABG pCO2 Sodium Potassium Chloride Carbon Dioxide BUN Creatinine Glucose POC Glucose 275 H 198 H Lactic Acid Calcium Total Creatine Kinase Troponin T Albumin Triglycerides HDL Cholesterol 02/03/19 02/04/19 02/04/19 21:50 02:23 05:17 WBC RBC Hgb Hct MCV MCH MCHC RDW Lymph % (Auto) Yates % (Auto) Lymph # Jarod # Baso # Seg Neutrophils % Seg Neuts % (Manual) Nucleated RBC % Seg Neutrophils # POC ABG pH POC ABG pCO2 Sodium Potassium Chloride Carbon Dioxide BUN Creatinine Glucose POC Glucose 153 H 139 H 180 H Lactic Acid Calcium Total Creatine Kinase Troponin T Albumin Triglycerides HDL Cholesterol 02/04/19 02/04/19 02/04/19 09:47 14:40 18:03 WBC RBC Hgb Hct MCV MCH MCHC RDW Lymph % (Auto) Yates % (Auto) Lymph # Yates # Baso # Seg Neutrophils % Seg Neuts % (Manual) Nucleated RBC % Seg Neutrophils # POC ABG pH POC ABG pCO2 Sodium Potassium Chloride Carbon Dioxide BUN Creatinine Glucose POC Glucose 204 H 176 H 180 H Lactic Acid Calcium Total Creatine Kinase Troponin T Albumin Triglycerides HDL Cholesterol 02/04/19 02/04/19 02/05/19 18:35 21:35 01:31 WBC RBC Hgb Hct MCV MCH MCHC RDW Lymph % (Auto) Yates % (Auto) Lymph # Yates # Baso # Seg Neutrophils % Seg Neuts % (Manual) Nucleated RBC % Seg Neutrophils # POC ABG pH POC ABG pCO2 Sodium Potassium Chloride Carbon Dioxide BUN Creatinine Glucose POC Glucose 146 H 118 H 154 H Lactic Acid Calcium Total Creatine Kinase Troponin T Albumin Triglycerides HDL Cholesterol 02/05/19 02/05/19 02/05/19 05:56 07:58 12:16 WBC RBC Hgb Hct MCV MCH MCHC RDW Lymph % (Auto) Yates % (Auto) Lymph # Yates # Baso # Seg Neutrophils % Seg Neuts % (Manual) Nucleated RBC % Seg Neutrophils # POC ABG pH POC ABG pCO2 Sodium Potassium Chloride Carbon Dioxide BUN Creatinine Glucose POC Glucose 182 H 210 H 166 H Lactic Acid Calcium Total Creatine Kinase Troponin T Albumin Triglycerides HDL Cholesterol 02/05/19 02/05/19 02/06/19 16:40 21:15 07:36 WBC RBC Hgb Hct MCV MCH MCHC RDW Lymph % (Auto) Yates % (Auto) Lymph # Yates # Baso # Seg Neutrophils % Seg Neuts % (Manual) Nucleated RBC % Seg Neutrophils # POC ABG pH POC ABG pCO2 Sodium Potassium Chloride Carbon Dioxide BUN Creatinine Glucose POC Glucose 119 H 162 H 168 H Lactic Acid Calcium Total Creatine Kinase Troponin T Albumin Triglycerides HDL Cholesterol Allied health notes reviewed: nursing
--- NOTE | 2019-02-06 11:10 | Progress Note ---
Subjective Date of service: 02/06/19 Principal diagnosis: Ac. Encephalopathy; MYRTLE; Hypernatremia; Hyperkalemia; IDDM Interval history: wentover the [facility] CT most recent and couple of comments.... 1. 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 The [employer] shunt catheter looks intact and draining CSF well as there is no hydrocephalus do not see evidence of infection of the [employer] shunt AKA ventriculitis suspec part of picture is the effect of the prior deep white matter stroke right hemisphere but this is old and not acute therefore static process Objective - Vital Sign Vital Signs - 12hr 02/06/19 05:23 Temperature 98.7 F Pulse Rate 105 H Respiratory 20 Rate Blood Pressure 117/78 O2 Sat by Pulse 98 Oximetry - Laboratory Findings CBC and BMP: 02/03/19 07:00 02/03/19 07:00 Abnormal Lab Findings: Abnormal Labs 01/25/19 01/25/19 01/25/19 13:31 13:31 13:31 WBC 12.0 H RBC 6.00 H Hgb Hct 47.7 H MCV 80 L MCH 25 L MCHC 31 L RDW 18.1 H Lymph % (Auto) 10.4 L Lares % (Auto) 9.3 H Lymph # Lares # 1.1 H Baso # Seg Neutrophils % 78.5 H Seg Neuts % (Manual) Nucleated RBC % Seg Neutrophils # 9.5 H POC ABG pH POC ABG pCO2 Sodium 159 H Potassium 6.0 H Chloride 119.0 H Carbon Dioxide BUN 185 H Creatinine 5.7 H D Glucose 433 H POC Glucose Lactic Acid 2.60 H* Calcium Total Creatine Kinase 294 H Troponin T 0.080 H Albumin 2.6 L Triglycerides 172 H HDL Cholesterol 30 L 01/25/19 01/25/19 01/25/19 16:03 16:03 17:11 WBC RBC Hgb Hct MCV MCH MCHC RDW Lymph % (Auto) Lares % (Auto) Lymph # Lares # Baso # Seg Neutrophils % Seg Neuts % (Manual) Nucleated RBC % Seg Neutrophils # POC ABG pH POC ABG pCO2 Sodium Potassium Chloride Carbon Dioxide BUN Creatinine Glucose POC Glucose 346 H Lactic Acid 2.20 H* 2.30 H* Calcium Total Creatine Kinase Troponin T Albumin Triglycerides HDL Cholesterol 01/25/19 01/25/19 01/26/19 18:50 23:08 00:22 WBC RBC Hgb Hct MCV MCH MCHC RDW Lymph % (Auto) Lares % (Auto) Lymph # Lares # Baso # Seg Neutrophils % Seg Neuts % (Manual) Nucleated RBC % Seg Neutrophils # POC ABG pH POC ABG pCO2 Sodium 162 H* Potassium Chloride 125.2 H Carbon Dioxide BUN 180 H Creatinine 5.1 H Glucose 438 H POC Glucose 480 H Lactic Acid Calcium Total Creatine Kinase Troponin T 0.045 H D Albumin Triglycerides HDL Cholesterol 01/26/19 01/26/19 01/26/19 02:16 04:25 04:25 WBC RBC 5.21 H Hgb Hct MCV 80 L MCH 25 L MCHC 31 L RDW 18.0 H Lymph % (Auto) 8.2 L Lares % (Auto) 7.6 H Lymph # 0.8 L [place] # Baso # 0.2 H Seg Neutrophils % 81.6 H Seg Neuts % (Manual) Nucleated RBC % Seg Neutrophils # 8.3 H POC ABG pH POC ABG pCO2 Sodium 158 H Potassium Chloride 122.9 H Carbon Dioxide 21 L BUN 163 H Creatinine 3.9 H Glucose 465 H POC Glucose 462 H Lactic Acid Calcium 7.8 L Total Creatine Kinase Troponin T Albumin 2.3 L Triglycerides HDL Cholesterol 01/26/19 01/26/19 01/26/19 04:25 05:33 10:08 WBC RBC Hgb Hct MCV MCH MCHC RDW Lymph % (Auto) Lares % (Auto) Lymph # Lares # Baso # Seg Neutrophils % Seg Neuts % (Manual) Nucleated RBC % Seg Neutrophils # POC ABG pH POC ABG pCO2 Sodium 160 H Potassium Chloride 123.9 H Carbon Dioxide 19 L BUN 161 H Creatinine 3.9 H Glucose 468 H POC Glucose 309 H 316 H Lactic Acid Calcium 7.8 L Total Creatine Kinase Troponin T 0.031 H D Albumin Triglycerides HDL Cholesterol 01/26/19 01/26/19 01/27/19 14:30 16:11 03:18 WBC RBC Hgb Hct MCV MCH MCHC RDW Lymph % (Auto) Lares % (Auto) Lymph # [place]res # Baso # Seg Neutrophils % Seg Neuts % (Manual) Nucleated RBC % Seg Neutrophils # POC ABG pH POC ABG pCO2 Sodium 160 H Potassium 3.4 L D Chloride 124.8 H Carbon Dioxide BUN 141 H Creatinine 2.9 H Glucose 126 H POC Glucose 167 H 184 H Lactic Acid Calcium 8.3 L Total Creatine Kinase Troponin T Albumin Triglycerides HDL Cholesterol 01/27/19 01/27/19 01/27/19 06:23 06:33 06:33 WBC RBC Hgb Hct MCV 79 L MCH 25 L MCHC 31 L RDW 17.7 H Lymph % (Auto) Lares % (Auto) 8.1 H Lymph # [place] # Baso # Seg Neutrophils % 71.1 H Seg Neuts % (Manual) Nucleated RBC % Seg Neutrophils # POC ABG pH POC ABG pCO2 Sodium 157 H Potassium Chloride 121.4 H Carbon Dioxide BUN 117 H Creatinine 1.9 H Glucose 200 H POC Glucose 219 H Lactic Acid Calcium 8.3 L Total Creatine Kinase Troponin T Albumin Triglycerides HDL Cholesterol 01/27/19 01/27/19 01/27/19 11:13 12:46 16:10 WBC RBC Hgb Hct MCV MCH MCHC RDW Lymph % (Auto) Lares % (Auto) Lymph # [place] # Baso # Seg Neutrophils % Seg Neuts % (Manual) Nucleated RBC % Seg Neutrophils # POC ABG pH POC ABG pCO2 Sodium Potassium Chloride Carbon Dioxide BUN Creatinine Glucose POC Glucose 200 H 205 H 230 H Lactic Acid Calcium Total Creatine Kinase Troponin T Albumin Triglycerides HDL Cholesterol 01/28/19 01/28/19 01/28/19 00:09 06:04 06:04 WBC RBC Hgb 11.5 L Hct MCV 77 L MCH 25 L MCHC RDW 17.4 H Lymph % (Auto) Lares % (Auto) 8.7 H Lymph # [place] # Baso # Seg Neutrophils % Seg Neuts % (Manual) Nucleated RBC % Seg Neutrophils # POC ABG pH POC ABG pCO2 Sodium 159 H Potassium 3.3 L Chloride 123.1 H Carbon Dioxide BUN 75 H Creatinine Glucose 310 H POC Glucose 177 H Lactic Acid Calcium Total Creatine Kinase Troponin T Albumin Triglycerides HDL Cholesterol 01/28/19 01/28/19 01/28/19 06:42 12:28 15:10 WBC RBC Hgb Hct MCV MCH MCHC RDW Lymph % (Auto) Lares % (Auto) Lymph # [place] # Baso # Seg Neutrophils % Seg Neuts % (Manual) Nucleated RBC % Seg Neutrophils # POC ABG pH POC ABG pCO2 Sodium Potassium Chloride Carbon Dioxide BUN Creatinine Glucose POC Glucose 384 H 280 H 282 H Lactic Acid Calcium Total Creatine Kinase Troponin T Albumin Triglycerides HDL Cholesterol 01/28/19 01/28/19 01/28/19 18:54 19:00 21:44 WBC RBC Hgb Hct MCV MCH MCHC RDW Lymph % (Auto) La[place] % (Auto) Lymph # [place] # Baso # Seg Neutrophils % Seg Neuts % (Manual) Nucleated RBC % Seg Neutrophils # POC ABG pH 7.479 H POC ABG pCO2 32.3 L Sodium Potassium Chloride Carbon Dioxide BUN Creatinine Glucose POC Glucose 189 H 179 H Lactic Acid Calcium Total Creatine Kinase Troponin T Albumin Triglycerides HDL Cholesterol 01/29/19 01/29/19 01/29/19 01:48 04:37 05:38 WBC RBC Hgb Hct MCV MCH MCHC RDW Lymph % (Auto) Lares % (Auto) Lymph # [place] # Baso # Seg Neutrophils % Seg Neuts % (Manual) Nucleated RBC % Seg Neutrophils # POC ABG pH POC ABG pCO2 Sodium 164 H* Potassium 3.5 L Chloride 128.9 H Carbon Dioxide BUN 54 H Creatinine Glucose 271 H POC Glucose 238 H 248 H Lactic Acid Calcium Total Creatine Kinase Troponin T Albumin Triglycerides HDL Cholesterol 01/29/19 01/29/19 01/29/19 10:26 13:19 17:57 WBC RBC Hgb Hct MCV MCH MCHC RDW Lymph % (Auto) Lares % (Auto) Lymph # [place] # Baso # Seg Neutrophils % Seg Neuts % (Manual) Nucleated RBC % Seg Neutrophils # POC ABG pH POC ABG pCO2 Sodium Potassium Chloride Carbon Dioxide BUN Creatinine Glucose POC Glucose 288 H 301 H 242 H Lactic Acid Calcium Total Creatine Kinase Troponin T Albumin Triglycerides HDL Cholesterol 01/29/19 01/30/19 01/30/19 20:25 01:51 05:23 WBC RBC Hgb Hct MCV MCH MCHC RDW Lymph % (Auto) [place] % (Auto) Lymph # [place] # Baso # Seg Neutrophils % Seg Neuts % (Manual) Nucleated RBC % Seg Neutrophils # POC ABG pH POC ABG pCO2 Sodium Potassium Chloride Carbon Dioxide BUN Creatinine Glucose POC Glucose 223 H 229 H 218 H Lactic Acid Calcium Total Creatine Kinase Troponin T Albumin Triglycerides HDL Cholesterol 01/30/19 01/30/19 01/30/19 07:16 10:26 14:24 WBC RBC Hgb Hct MCV MCH MCHC RDW Lymph % (Auto) [place] % (Auto) Lymph # [place] # Baso # Seg Neutrophils % Seg Neuts % (Manual) Nucleated RBC % Seg Neutrophils # POC ABG pH POC ABG pCO2 Sodium 155 H D Potassium 3.2 L Chloride 118.4 H Carbon Dioxide BUN 40 H Creatinine Glucose 246 H POC Glucose 257 H 240 H Lactic Acid Calcium 8.3 L Total Creatine Kinase Troponin T Albumin Triglycerides HDL Cholesterol 01/30/19 01/30/19 01/30/19 18:30 20:44 23:38 WBC RBC Hgb Hct MCV MCH MCHC RDW Lymph % (Auto) La[place] % (Auto) Lymph # [place] # Baso # Seg Neutrophils % Seg Neuts % (Manual) Nucleated RBC % Seg Neutrophils # POC ABG pH POC ABG pCO2 Sodium Potassium Chloride Carbon Dioxide BUN Creatinine Glucose POC Glucose 327 H 300 H 279 H Lactic Acid Calcium Total Creatine Kinase Troponin T Albumin Triglycerides HDL Cholesterol 01/31/19 01/31/19 01/31/19 01:57 04:42 04:42 WBC RBC Hgb 10.1 L Hct 31.7 L MCV 79 L MCH 25 L MCHC RDW 17.4 H Lymph % (Auto) [place] % (Auto) Lymph # [place] # Baso # Seg Neutrophils % Seg Neuts % (Manual) 75.0 H Nucleated RBC % 2.0 H Seg Neutrophils # POC ABG pH POC ABG pCO2 Sodium 147 H D Potassium 3.2 L Chloride 110.0 H Carbon Dioxide BUN 28 H Creatinine Glucose 261 H POC Glucose 270 H Lactic Acid Calcium 7.8 L Total Creatine Kinase Troponin T Albumin Triglycerides HDL Cholesterol 01/31/19 01/31/19 01/31/19 05:10 08:46 17:10 WBC RBC Hgb Hct MCV MCH MCHC RDW Lymph % (Auto) [place] % (Auto) Lymph # [place] # Baso # Seg Neutrophils % Seg Neuts % (Manual) Nucleated RBC % Seg Neutrophils # POC ABG pH POC ABG pCO2 Sodium Potassium Chloride Carbon Dioxide BUN Creatinine Glucose POC Glucose 239 H 242 H 298 H Lactic Acid Calcium Total Creatine Kinase Troponin T Albumin Triglycerides HDL Cholesterol 01/31/19 02/01/19 02/01/19 21:10 02:17 03:50 WBC RBC Hgb Hct MCV MCH MCHC RDW Lymph % (Auto) [place] % (Auto) Lymph # [place] # Baso # Seg Neutrophils % Seg Neuts % (Manual) Nucleated RBC % Seg Neutrophils # POC ABG pH POC ABG pCO2 Sodium 146 H Potassium Chloride 110.9 H Carbon Dioxide 21 L BUN 26 H Creatinine 0.7 L Glucose 240 H POC Glucose 304 H 240 H Lactic Acid Calcium 8.3 L Total Creatine Kinase Troponin T Albumin Triglycerides HDL Cholesterol 02/01/19 02/01/19 02/01/19 03:50 05:35 10:11 WBC RBC Hgb 10.2 L Hct 31.4 L MCV 78 L MCH 25 L MCHC RDW 16.9 H Lymph % (Auto) [place] % (Auto) Lymph # [place] # Baso # Seg Neutrophils % Seg Neuts % (Manual) 78.0 H Nucleated RBC % Seg Neutrophils # POC ABG pH POC ABG pCO2 Sodium Potassium Chloride Carbon Dioxide BUN Creatinine Glucose POC Glucose 208 H 186 H Lactic Acid Calcium Total Creatine Kinase Troponin T Albumin Triglycerides HDL Cholesterol 02/01/19 02/01/19 02/01/19 14:35 17:25 20:44 WBC RBC Hgb Hct MCV MCH MCHC RDW Lymph % (Auto) [place] % (Auto) Lymph # [place] # Baso # Seg Neutrophils % Seg Neuts % (Manual) Nucleated RBC % Seg Neutrophils # POC ABG pH POC ABG pCO2 Sodium Potassium Chloride Carbon Dioxide BUN Creatinine Glucose POC Glucose 222 H 193 H 204 H Lactic Acid Calcium Total Creatine Kinase Troponin T Albumin Triglycerides HDL Cholesterol 02/02/19 02/02/19 02/02/19 07:17 07:26 12:11 WBC RBC Hgb Hct MCV MCH MCHC RDW Lymph % (Auto) [place] % (Auto) Lymph # [place] # Baso # Seg Neutrophils % Seg Neuts % (Manual) Nucleated RBC % Seg Neutrophils # POC ABG pH POC ABG pCO2 Sodium Potassium 3.3 L D Chloride 107.8 H Carbon Dioxide BUN Creatinine 0.6 L Glucose 117 H POC Glucose 110 H 115 H Lactic Acid Calcium 7.9 L Total Creatine Kinase Troponin T Albumin Triglycerides HDL Cholesterol 02/02/19 02/02/19 02/02/19 16:10 18:30 18:50 WBC RBC Hgb Hct MCV MCH MCHC RDW Lymph % (Auto) [place] % (Auto) Lymph # [place] # Baso # Seg Neutrophils % Seg Neuts % (Manual) Nucleated RBC % Seg Neutrophils # POC ABG pH POC ABG pCO2 Sodium Potassium Chloride Carbon Dioxide BUN Creatinine Glucose POC Glucose 182 H 200 H 198 H Lactic Acid Calcium Total Creatine Kinase Troponin T Albumin Triglycerides HDL Cholesterol 02/03/19 02/03/19 02/03/19 00:40 06:50 07:00 WBC RBC Hgb Hct MCV MCH MCHC RDW Lymph % (Auto) [place] % (Auto) Lymph # [place] # Baso # Seg Neutrophils % Seg Neuts % (Manual) Nucleated RBC % Seg Neutrophils # POC ABG pH POC ABG pCO2 Sodium Potassium Chloride Carbon Dioxide BUN Creatinine 0.6 L Glucose 268 H POC Glucose 212 H 260 H Lactic Acid Calcium 8.1 L Total Creatine Kinase Troponin T Albumin Triglycerides HDL Cholesterol 02/03/19 02/03/19 02/03/19 07:00 08:23 12:49 WBC RBC Hgb 9.7 L Hct 29.7 L MCV 76 L MCH 25 L MCHC RDW 17.0 H Lymph % (Auto) [place] % (Auto) Lymph # [place] # Baso # Seg Neutrophils % Seg Neuts % (Manual) Nucleated RBC % Seg Neutrophils # POC ABG pH POC ABG pCO2 Sodium Potassium Chloride Carbon Dioxide BUN Creatinine Glucose POC Glucose 275 H 198 H Lactic Acid Calcium Total Creatine Kinase Troponin T Albumin Triglycerides HDL Cholesterol 02/03/19 02/04/19 02/04/19 21:50 02:23 05:17 WBC RBC Hgb Hct MCV MCH MCHC RDW Lymph % (Auto) [place] % (Auto) Lymph # [place] # Baso # Seg Neutrophils % Seg Neuts % (Manual) Nucleated RBC % Seg Neutrophils # POC ABG pH POC ABG pCO2 Sodium Potassium Chloride Carbon Dioxide BUN Creatinine Glucose POC Glucose 153 H 139 H 180 H Lactic Acid Calcium Total Creatine Kinase Troponin T Albumin Triglycerides HDL Cholesterol 02/04/19 02/04/19 02/04/19 09:47 14:40 18:03 WBC RBC Hgb Hct MCV MCH MCHC RDW Lymph % (Auto) [place] % (Auto) Lymph # [place] # Baso # Seg Neutrophils % Seg Neuts % (Manual) Nucleated RBC % Seg Neutrophils # POC ABG pH POC ABG pCO2 Sodium Potassium Chloride Carbon Dioxide BUN Creatinine Glucose POC Glucose 204 H 176 H 180 H Lactic Acid Calcium Total Creatine Kinase Troponin T Albumin Triglycerides HDL Cholesterol 02/04/19 02/04/19 02/05/19 18:35 21:35 01:31 WBC RBC Hgb Hct MCV MCH MCHC RDW Lymph % (Auto) [place] % (Auto) Lymph # [place] # Baso # Seg Neutrophils % Seg Neuts % (Manual) Nucleated RBC % Seg Neutrophils # POC ABG pH POC ABG pCO2 Sodium Potassium Chloride Carbon Dioxide BUN Creatinine Glucose POC Glucose 146 H 118 H 154 H Lactic Acid Calcium Total Creatine Kinase Troponin T Albumin Triglycerides HDL Cholesterol 02/05/19 02/05/19 02/05/19 05:56 07:58 12:16 WBC RBC Hgb Hct MCV MCH MCHC RDW Lymph % (Auto) [place] % (Auto) Lymph # [place] # Baso # Seg Neutrophils % Seg Neuts % (Manual) Nucleated RBC % Seg Neutrophils # POC ABG pH POC ABG pCO2 Sodium Potassium Chloride Carbon Dioxide BUN Creatinine Glucose POC Glucose 182 H 210 H 166 H Lactic Acid Calcium Total Creatine Kinase Troponin T Albumin Triglycerides HDL Cholesterol 02/05/19 02/05/19 02/06/19 16:40 21:15 07:36 WBC RBC Hgb Hct MCV MCH MCHC RDW Lymph % (Auto) [place] % (Auto) Lymph # [place] # Baso # Seg Neutrophils % Seg Neuts % (Manual) Nucleated RBC % Seg Neutrophils # POC ABG pH POC ABG pCO2 Sodium Potassium Chloride Carbon Dioxide BUN Creatinine Glucose POC Glucose 119 H 162 H 168 H Lactic Acid Calcium Total Creatine Kinase Troponin T Albumin Triglycerides HDL Cholesterol
--- NOTE | 2019-02-06 11:55 | Progress Note ---
Subjective Principal diagnosis: Ac. Encephalopathy; MYRTLE; Hypernatremia; Hyperkalemia; IDDM Interval history: Patient was seen today for follow-up of multiple renal related issues no new labs today Patient remains encephalopathic Events of 24 hours vitals labs intake output medications were reviewed Past medical history: Reviewed Family history: Reviewed Social history: Reviewed Allergies: Reviewed Physical examination: Vitals: Reviewed HEENT: No pallor or icterus oral mucosa moist has feeding tube Neck: Supple no JVD no thyromegaly Chest: Bilateral clear to auscultation anteriorly Heart: Regular rate and rhythm S1-S2 heard no S3-S4 Abdomen: Soft nontender no voluntary guarding rigidity rebound Extremity: Dry skin less than 1+ peripheral edema Psychiatric: No evidence of agitation and aggression noted Dermatology: No petechial rashes Labs and x-rays: Reviewed from today Assessment and plan Acute kidney injury: Patient will need follow-up labs, renal function has normalized If renal function is otherwise stable today would like to sign off the case Objective - Vital Signs Vital signs: Vital Signs - 12hr 02/06/19 05:23 Temperature 98.7 F Pulse Rate 105 H Respiratory 20 Rate Blood Pressure 117/78 O2 Sat by Pulse 98 Oximetry - Lab 02/03/19 07:00 02/06/19 13:26 Most recent lab results Calcium 8.1 mg/dL (8.4-10.2) L 02/03/19 07:00 Magnesium 1.80 mg/dL (1.7-2.3) 02/01/19 03:50 Medications & Allergies - Medications Allergies/Adverse Reactions: Allergies Penicillins Allergy (Verified 02/03/19 11:10) Unknown Home Medications: Home Medications Medication Instructions Recorded Confirmed Last Taken Type Citalopram Hydrobromide [celeXA] 20 mg PO DAILY 02/07/16 01/25/19 02/06/16 History Acetaminophen [Tylenol] 650 mg PO Q4HR PRN 01/25/19 01/25/19 Unknown History AtorvaSTATin [Lipitor] 40 mg PO QHS 01/25/19 01/25/19 Unknown History Insulin Lispro [HumaLOG VIAL] See Protocol SUB-Q BID 01/25/19 01/25/19 Unknown History LORazepam [Ativan] 0.5 mg PO Q8H PRN 01/25/19 01/25/19 Unknown History Latanoprost [Xalatan] 1 drop OU HS 01/25/19 01/25/19 Unknown History Lisinopril [Zestril] 20 mg PO QDAY 01/25/19 01/25/19 Unknown History Magnesium Oxide [Mag-Ox] 400 mg PO QDAY 01/25/19 01/25/19 Unknown History Quetiapine Fumarate [SEROquel] 50 mg PO TID 01/25/19 01/25/19 Unknown History Thiamine [Vitamin B-1] 100 mg PO AC 01/25/19 01/25/19 Unknown History Timolol 0.5% [Timoptic] 1 drop OU BID 01/25/19 01/25/19 Unknown History hydroCHLOROthiazide [HCTZ] 25 mg PO QDAY 01/25/19 01/25/19 Unknown History Active Medications: Generic Name Dose Route Start Last Admin Trade Name Freq PRN Reason Stop Dose Admin Lipase/Protease/Amylase 1 each 01/26/19 11:47 Pancreaze 10,500 Unit FEEDTUBE PRN PRN For Clogged Feeding Tube Heparin Sodium (Porcine) 5,000 unit 01/25/19 22:00 02/05/19 22:08 Heparin SUB-Q 5,000 unit Q12HR NIKOLAS Administration Hydralazine HCl 10 mg 02/03/19 22:00 Apresoline IV Q8HR PRN Hypertension Insulin Glargine 45 units 01/29/19 22:00 02/05/19 22:09 Lantus SUB-Q 45 units QHS NIKOLAS Administration Insulin Human Lispro 0 unit 02/05/19 07:30 02/06/19 08:48 Humalog SUB-Q 3 unit ACHS NIKOLAS Administration Protocol Simple Syrup 15 ml 01/26/19 11:47 Simple Syrup FEEDTUBE PRN PRN Hypoglycemia Simple Syrup 30 ml 01/26/19 11:47 Simple Syrup FEEDTUBE PRN PRN Hypoglycemia Sodium Bicarbonate 325 mg 01/26/19 11:47 Sodium Bicarbonate FEEDTUBE PRN PRN For Clogged Feeding Tube Sodium Chloride 10 ml 01/25/19 22:00 02/05/19 22:11 Sodium Chloride Flush Syringe 10 Ml IV 10 ml BID NIKOLAS Administration Sodium Chloride 10 ml 01/25/19 17:46 Sodium Chloride Flush Syringe 10 Ml IV PRN PRN LINE FLUSH
[2019-02-06] MEDS: HEPARIN SUB-Q SCH ×2 (12:30→21:51)
[2019-02-06] MEDS: SODIUM CHLORIDE FLUSH SYRINGE 10 ML IV SCH ×2 (12:32→21:53)
[2019-02-06 14:17] LABS: BUN/Creatinine Ratio 22; Blood Urea Nitrogen 13 mg/dL (9-20); Calcium 8.7 mg/dL (8.4-10.2); Hemolysis Index 4
[2019-02-06] MEDS ORDERED: MAGNESIUM SULFATE 2GM/50ML 2 GM/50 ML BAG IV ONE (15:00)
--- NOTE | 2019-02-06 15:12 | Gastroenterology Progress Note ---
Assessment and Plan - Patient Problems (1) Neurogenic dysphagia Current Visit: Yes Status: Acute Plan to address problem: - Discussed PEG with patient's brother Alonzo Syed. - Mother is POA, but the family is all in agreement that a PEG is OK. - For now, continue Dobhoff feeds; will plan EGD/PEG Friday prior to discharge. - OK to continue current DVT prophylaxis medications. Subjective Date of service: 02/06/19 Principal diagnosis: Neurogenic Dysphagia Interval history: The patient remains stable without fevers or chills; he is tolerating current Dobhoff feeds at goal. Objective - Constitutional Vitals: Temp Pulse Resp BP Pulse Ox 97.7 F 101 H 18 131/85 98 02/06/19 12:03 02/06/19 12:03 02/06/19 12:03 02/06/19 12:03 02/06/19 12:03 General appearance: no acute distress - Respiratory Respiratory effort: normal Respiratory: bilateral: CTA - Cardiovascular Rhythm: regular Heart Sounds: Present: S1 & S2 - Gastrointestinal General gastrointestinal: Present: soft, non-tender, non-distended - Labs CBC & Chem 7: 02/03/19 07:00 02/06/19 13:26 Labs: Laboratory Results - last 24 hr 02/05/19 02/05/19 02/06/19 16:40 21:15 07:36 Sodium Potassium Chloride Carbon Dioxide Anion Gap BUN Creatinine Estimated GFR BUN/Creatinine Ratio Glucose POC Glucose 119 H 162 H 168 H Calcium Magnesium 02/06/19 02/06/19 11:20 13:26 Sodium 139 Potassium 4.2 Chloride 99.8 Carbon Dioxide 29 Anion Gap 14 BUN 13 Creatinine 0.6 L Estimated GFR > 60 BUN/Creatinine Ratio 22 Glucose 187 H POC Glucose 132 H Calcium 8.7 Magnesium 1.50 L
[2019-02-06] MEDS: LANTUS SUB-Q SCH (21:51)
[2019-02-07] MEDS: HumaLOG SUB-Q SCH ×4 (07:30→22:41)
[2019-02-07] MEDS: HEPARIN SUB-Q SCH ×2 (09:59→22:42)
[2019-02-07] MEDS: SODIUM CHLORIDE FLUSH SYRINGE 10 ML IV SCH ×2 (10:01→22:42)
--- NOTE | 2019-02-07 11:39 | Progress Note ---
Assessment and Plan Acute metabolic encephalopathy MYRTLE (acute kidney injury) Acute hypernatremia Hyperkalemia Metabolic acidosis with increased anion gap and reduced excretion of inorganic acids Sepsis IDDM (insulin dependent diabetes mellitus) HTN (hypertension) HLD (hyperlipidemia) BPH (benign prostatic hyperplasia) - prn CXR's at this point - continue supplemental oxygen and wean to keep O2 sat's > 90% - continue bronchodilators with pulmonary hygiene per RT - continue aspiration precautions - enteral nutrition as tolerated - continue volume resuscitation re: prerenal numbers - azotemia per nephrology otherwise - hypernatremia has resolved - continue glycemic control with SSI for target BG < 180mg/dl - s/p AB's course - continue other care per attending/other consultants ... discharge planning ok respiratory-stahl ... re-evaluate in am & prn Subjective Date of service: 02/07/19 Principal diagnosis: Ac. Encephalopathy; MYRTLE; Hypernatremia; Hyperkalemia; IDDM Interval history: Patient is seen today for: Acute metabolic encephalopathy; MYRTLE (acute kidney injury); Acute hypernatremia; Hyperkalemia; Metabolic acidosis with increased anion gap and reduced excretion of inorganic acids; Severe Sepsis; IDDM (insulin dependent diabetes mellitus) Seen and examined at bedside; 24hour events reviewed; nursing and respiratory care staff consulted; no adverse overnight events reported to me; resting peacefully in bed; no new issues resported; remains hypoxemic; remains with AMS; no seizures Objective Vital Signs - 12hr 02/07/19 03:03 Temperature 98.4 F Pulse Rate 101 H Respiratory 28 H Rate Blood Pressure 136/92 Constitutional: no acute distress, other (somnolent, not following commands) Eyes: non-icteric ENT: oropharynx moist Neck: supple, no lymphadenopathy, no JVD, other (no thyromegaly) Effort: normal Ascultation: Bilateral: diminished breath sounds, rhonchi Percussion: Bilateral: not dull Cardiovascular: regular rate and rhythm Gastrointestinal: normoactive bowel sounds, soft, non-tender, non-distended Integumentary: normal Extremities: no cyanosis, no edema, pulses normal, no ischemia or petechiae Neurologic: pupils equal and round, other (hemiparesis, somnolent to lethargic) Psychiatric: other (Can Not asses due to his mental status.) CBC and BMP: 02/03/19 07:00 02/06/19 13:26 ABG, PT/INR, D-dimer: ABG POC ABG pH 7.479 (7.35-7.45) H 01/28/19 19:00 POC ABG pCO2 32.3 (35-45) L 01/28/19 19:00 POC ABG pO2 93 (80-105) 01/28/19 19:00 POC ABG HCO3 24.0 (22-26 mml/L) 01/28/19 19:00 POC ABG Total CO2 25 (23-27mmol/L) 01/28/19 19:00 POC ABG O2 Sat 98 01/28/19 19:00 PT/INR, D-dimer PT 12.8 Sec. (12.2-14.9) 02/04/19 15:38 INR 0.91 (0.87-1.13) 02/04/19 15:38 Abnormal lab findings: Abnormal Labs 01/25/19 01/25/19 01/25/19 13:31 13:31 13:31 WBC 12.0 H RBC 6.00 H Hgb Hct 47.7 H MCV 80 L MCH 25 L MCHC 31 L RDW 18.1 H Lymph % (Auto) 10.4 L Miller % (Auto) 9.3 H Lymph # Miller # 1.1 H Baso # Seg Neutrophils % 78.5 H Seg Neuts % (Manual) Nucleated RBC % Seg Neutrophils # 9.5 H POC ABG pH POC ABG pCO2 Sodium 159 H Potassium 6.0 H Chloride 119.0 H Carbon Dioxide BUN 185 H Creatinine 5.7 H D Glucose 433 H POC Glucose Lactic Acid 2.60 H* Calcium Magnesium Total Creatine Kinase 294 H Troponin T 0.080 H Albumin 2.6 L Triglycerides 172 H HDL Cholesterol 30 L 01/25/19 01/25/19 01/25/19 16:03 16:03 17:11 WBC RBC Hgb Hct MCV MCH MCHC RDW Lymph % (Auto) Miller % (Auto) Lymph # Miller # Baso # Seg Neutrophils % Seg Neuts % (Manual) Nucleated RBC % Seg Neutrophils # POC ABG pH POC ABG pCO2 Sodium Potassium Chloride Carbon Dioxide BUN Creatinine Glucose POC Glucose 346 H Lactic Acid 2.20 H* 2.30 H* Calcium Magnesium Total Creatine Kinase Troponin T Albumin Triglycerides HDL Cholesterol 04/29/19 04/29/19 04/30/19 18:50 23:08 00:22 WBC RBC Hgb Hct MCV MCH MCHC RDW Lymph % (Auto) Miller % (Auto) Lymph # Miller # Baso # Seg Neutrophils % Seg Neuts % (Manual) Nucleated RBC % Seg Neutrophils # POC ABG pH POC ABG pCO2 Sodium 162 H* Potassium Chloride 125.2 H Carbon Dioxide BUN 180 H Creatinine 5.1 H Glucose 438 H POC Glucose 480 H Lactic Acid Calcium Magnesium Total Creatine Kinase Troponin T 0.045 H D Albumin Triglycerides HDL Cholesterol 01/26/19 01/26/19 01/26/19 02:16 04:25 04:25 WBC RBC 5.21 H Hgb Hct MCV 80 L MCH 25 L MCHC 31 L RDW 18.0 H Lymph % (Auto) 8.2 L Miller % (Auto) 7.6 H Lymph # 0.8 L Miller # Baso # 0.2 H Seg Neutrophils % 81.6 H Seg Neuts % (Manual) Nucleated RBC % Seg Neutrophils # 8.3 H POC ABG pH POC ABG pCO2 Sodium 158 H Potassium Chloride 122.9 H Carbon Dioxide 21 L BUN 163 H Creatinine 3.9 H Glucose 465 H POC Glucose 462 H Lactic Acid Calcium 7.8 L Magnesium Total Creatine Kinase Troponin T Albumin 2.3 L Triglycerides HDL Cholesterol 01/26/19 01/26/19 01/26/19 04:25 05:33 10:08 WBC RBC Hgb Hct MCV MCH MCHC RDW Lymph % (Auto) Miller % (Auto) Lymph # Miller # Baso # Seg Neutrophils % Seg Neuts % (Manual) Nucleated RBC % Seg Neutrophils # POC ABG pH POC ABG pCO2 Sodium 160 H Potassium Chloride 123.9 H Carbon Dioxide 19 L BUN 161 H Creatinine 3.9 H Glucose 468 H POC Glucose 309 H 316 H Lactic Acid Calcium 7.8 L Magnesium Total Creatine Kinase Troponin T 0.031 H D Albumin Triglycerides HDL Cholesterol 01/26/19 01/26/19 01/27/19 14:30 16:11 03:18 WBC RBC Hgb Hct MCV MCH MCHC RDW Lymph % (Auto) Miller % (Auto) Lymph # Miller # Baso # Seg Neutrophils % Seg Neuts % (Manual) Nucleated RBC % Seg Neutrophils # POC ABG pH POC ABG pCO2 Sodium 160 H Potassium 3.4 L D Chloride 124.8 H Carbon Dioxide BUN 141 H Creatinine 2.9 H Glucose 126 H POC Glucose 167 H 184 H Lactic Acid Calcium 8.3 L Magnesium Total Creatine Kinase Troponin T Albumin Triglycerides HDL Cholesterol 01/27/19 01/27/19 01/27/19 06:23 06:33 06:33 WBC RBC Hgb Hct MCV 79 L MCH 25 L MCHC 31 L RDW 17.7 H Lymph % (Auto) Miller % (Auto) 8.1 H Lymph # Miller # Baso # Seg Neutrophils % 71.1 H Seg Neuts % (Manual) Nucleated RBC % Seg Neutrophils # POC ABG pH POC ABG pCO2 Sodium 157 H Potassium Chloride 121.4 H Carbon Dioxide BUN 117 H Creatinine 1.9 H Glucose 200 H POC Glucose 219 H Lactic Acid Calcium 8.3 L Magnesium Total Creatine Kinase Troponin T Albumin Triglycerides HDL Cholesterol 01/27/19 01/27/19 01/27/19 11:13 12:46 16:10 WBC RBC Hgb Hct MCV MCH MCHC RDW Lymph % (Auto) Miller % (Auto) Lymph # Miller # Baso # Seg Neutrophils % Seg Neuts % (Manual) Nucleated RBC % Seg Neutrophils # POC ABG pH POC ABG pCO2 Sodium Potassium Chloride Carbon Dioxide BUN Creatinine Glucose POC Glucose 200 H 205 H 230 H Lactic Acid Calcium Magnesium Total Creatine Kinase Troponin T Albumin Triglycerides HDL Cholesterol 01/28/19 01/28/19 01/28/19 00:09 06:04 06:04 WBC RBC Hgb 11.5 L Hct MCV 77 L MCH 25 L MCHC RDW 17.4 H Lymph % (Auto) Miller % (Auto) 8.7 H Lymph # Miller # Baso # Seg Neutrophils % Seg Neuts % (Manual) Nucleated RBC % Seg Neutrophils # POC ABG pH POC ABG pCO2 Sodium 159 H Potassium 3.3 L Chloride 123.1 H Carbon Dioxide BUN 75 H Creatinine Glucose 310 H POC Glucose 177 H Lactic Acid Calcium Magnesium Total Creatine Kinase Troponin T Albumin Triglycerides HDL Cholesterol 01/28/19 01/28/19 01/28/19 06:42 12:28 15:10 WBC RBC Hgb Hct MCV MCH MCHC RDW Lymph % (Auto) Miller % (Auto) Lymph # Miller # Baso # Seg Neutrophils % Seg Neuts % (Manual) Nucleated RBC % Seg Neutrophils # POC ABG pH POC ABG pCO2 Sodium Potassium Chloride Carbon Dioxide BUN Creatinine Glucose POC Glucose 384 H 280 H 282 H Lactic Acid Calcium Magnesium Total Creatine Kinase Troponin T Albumin Triglycerides HDL Cholesterol 01/28/19 01/28/19 01/28/19 18:54 19:00 21:44 WBC RBC Hgb Hct MCV MCH MCHC RDW Lymph % (Auto) Miller % (Auto) Lymph # Miller # Baso # Seg Neutrophils % Seg Neuts % (Manual) Nucleated RBC % Seg Neutrophils # POC ABG pH 7.479 H POC ABG pCO2 32.3 L Sodium Potassium Chloride Carbon Dioxide BUN Creatinine Glucose POC Glucose 189 H 179 H Lactic Acid Calcium Magnesium Total Creatine Kinase Troponin T Albumin Triglycerides HDL Cholesterol 01/29/19 01/29/19 01/29/19 01:48 04:37 05:38 WBC RBC Hgb Hct MCV MCH MCHC RDW Lymph % (Auto) Miller % (Auto) Lymph # Miller # Baso # Seg Neutrophils % Seg Neuts % (Manual) Nucleated RBC % Seg Neutrophils # POC ABG pH POC ABG pCO2 Sodium 164 H* Potassium 3.5 L Chloride 128.9 H Carbon Dioxide BUN 54 H Creatinine Glucose 271 H POC Glucose 238 H 248 H Lactic Acid Calcium Magnesium Total Creatine Kinase Troponin T Albumin Triglycerides HDL Cholesterol 01/29/19 01/29/19 01/29/19 10:26 13:19 17:57 WBC RBC Hgb Hct MCV MCH MCHC RDW Lymph % (Auto) Miller % (Auto) Lymph # Miller # Baso # Seg Neutrophils % Seg Neuts % (Manual) Nucleated RBC % Seg Neutrophils # POC ABG pH POC ABG pCO2 Sodium Potassium Chloride Carbon Dioxide BUN Creatinine Glucose POC Glucose 288 H 301 H 242 H Lactic Acid Calcium Magnesium Total Creatine Kinase Troponin T Albumin Triglycerides HDL Cholesterol 01/29/19 01/30/19 01/30/19 20:25 01:51 05:23 WBC RBC Hgb Hct MCV MCH MCHC RDW Lymph % (Auto) Miller % (Auto) Lymph # Miller # Baso # Seg Neutrophils % Seg Neuts % (Manual) Nucleated RBC % Seg Neutrophils # POC ABG pH POC ABG pCO2 Sodium Potassium Chloride Carbon Dioxide BUN Creatinine Glucose POC Glucose 223 H 229 H 218 H Lactic Acid Calcium Magnesium Total Creatine Kinase Troponin T Albumin Triglycerides HDL Cholesterol 01/30/19 01/30/19 01/30/19 07:16 10:26 14:24 WBC RBC Hgb Hct MCV MCH MCHC RDW Lymph % (Auto) Miller % (Auto) Lymph # Miller # Baso # Seg Neutrophils % Seg Neuts % (Manual) Nucleated RBC % Seg Neutrophils # POC ABG pH POC ABG pCO2 Sodium 155 H D Potassium 3.2 L Chloride 118.4 H Carbon Dioxide BUN 40 H Creatinine Glucose 246 H POC Glucose 257 H 240 H Lactic Acid Calcium 8.3 L Magnesium Total Creatine Kinase Troponin T Albumin Triglycerides HDL Cholesterol 01/30/19 01/30/19 01/30/19 18:30 20:44 23:38 WBC RBC Hgb Hct MCV MCH MCHC RDW Lymph % (Auto) Miller % (Auto) Lymph # Miller # Baso # Seg Neutrophils % Seg Neuts % (Manual) Nucleated RBC % Seg Neutrophils # POC ABG pH POC ABG pCO2 Sodium Potassium Chloride Carbon Dioxide BUN Creatinine Glucose POC Glucose 327 H 300 H 279 H Lactic Acid Calcium Magnesium Total Creatine Kinase Troponin T Albumin Triglycerides HDL Cholesterol 01/31/19 01/31/19 01/31/19 01:57 04:42 04:42 WBC RBC Hgb 10.1 L Hct 31.7 L MCV 79 L MCH 25 L MCHC RDW 17.4 H Lymph % (Auto) Miller % (Auto) Lymph # Miller # Baso # Seg Neutrophils % Seg Neuts % (Manual) 75.0 H Nucleated RBC % 2.0 H Seg Neutrophils # POC ABG pH POC ABG pCO2 Sodium 147 H D Potassium 3.2 L Chloride 110.0 H Carbon Dioxide BUN 28 H Creatinine Glucose 261 H POC Glucose 270 H Lactic Acid Calcium 7.8 L Magnesium Total Creatine Kinase Troponin T Albumin Triglycerides HDL Cholesterol 01/31/19 01/31/19 01/31/19 05:10 08:46 17:10 WBC RBC Hgb Hct MCV MCH MCHC RDW Lymph % (Auto) Miller % (Auto) Lymph # Miller # Baso # Seg Neutrophils % Seg Neuts % (Manual) Nucleated RBC % Seg Neutrophils # POC ABG pH POC ABG pCO2 Sodium Potassium Chloride Carbon Dioxide BUN Creatinine Glucose POC Glucose 239 H 242 H 298 H Lactic Acid Calcium Magnesium Total Creatine Kinase Troponin T Albumin Triglycerides HDL Cholesterol 01/31/19 02/01/19 02/01/19 21:10 02:17 03:50 WBC RBC Hgb Hct MCV MCH MCHC RDW Lymph % (Auto) Miller % (Auto) Lymph # Miller # Baso # Seg Neutrophils % Seg Neuts % (Manual) Nucleated RBC % Seg Neutrophils # POC ABG pH POC ABG pCO2 Sodium 146 H Potassium Chloride 110.9 H Carbon Dioxide 21 L BUN 26 H Creatinine 0.7 L Glucose 240 H POC Glucose 304 H 240 H Lactic Acid Calcium 8.3 L Magnesium Total Creatine Kinase Troponin T Albumin Triglycerides HDL Cholesterol 02/01/19 02/01/19 02/01/19 03:50 05:35 10:11 WBC RBC Hgb 10.2 L Hct 31.4 L MCV 78 L MCH 25 L MCHC RDW 16.9 H Lymph % (Auto) Miller % (Auto) Lymph # Miller # Baso # Seg Neutrophils % Seg Neuts % (Manual) 78.0 H Nucleated RBC % Seg Neutrophils # POC ABG pH POC ABG pCO2 Sodium Potassium Chloride Carbon Dioxide BUN Creatinine Glucose POC Glucose 208 H 186 H Lactic Acid Calcium Magnesium Total Creatine Kinase Troponin T Albumin Triglycerides HDL Cholesterol 02/01/19 02/01/19 02/01/19 14:35 17:25 20:44 WBC RBC Hgb Hct MCV MCH MCHC RDW Lymph % (Auto) Miller % (Auto) Lymph # Miller # Baso # Seg Neutrophils % Seg Neuts % (Manual) Nucleated RBC % Seg Neutrophils # POC ABG pH POC ABG pCO2 Sodium Potassium Chloride Carbon Dioxide BUN Creatinine Glucose POC Glucose 222 H 193 H 204 H Lactic Acid Calcium Magnesium Total Creatine Kinase Troponin T Albumin Triglycerides HDL Cholesterol 02/02/19 02/02/19 02/02/19 07:17 07:26 12:11 WBC RBC Hgb Hct MCV MCH MCHC RDW Lymph % (Auto) Miller % (Auto) Lymph # Miller # Baso # Seg Neutrophils % Seg Neuts % (Manual) Nucleated RBC % Seg Neutrophils # POC ABG pH POC ABG pCO2 Sodium Potassium 3.3 L D Chloride 107.8 H Carbon Dioxide BUN Creatinine 0.6 L Glucose 117 H POC Glucose 110 H 115 H Lactic Acid Calcium 7.9 L Magnesium Total Creatine Kinase Troponin T Albumin Triglycerides HDL Cholesterol 02/02/19 02/02/19 02/02/19 16:10 18:30 18:50 WBC RBC Hgb Hct MCV MCH MCHC RDW Lymph % (Auto) Miller % (Auto) Lymph # Miller # Baso # Seg Neutrophils % Seg Neuts % (Manual) Nucleated RBC % Seg Neutrophils # POC ABG pH POC ABG pCO2 Sodium Potassium Chloride Carbon Dioxide BUN Creatinine Glucose POC Glucose 182 H 200 H 198 H Lactic Acid Calcium Magnesium Total Creatine Kinase Troponin T Albumin Triglycerides HDL Cholesterol 02/03/19 02/03/19 02/03/19 00:40 06:50 07:00 WBC RBC Hgb Hct MCV MCH MCHC RDW Lymph % (Auto) Miller % (Auto) Lymph # Jarod # Baso # Seg Neutrophils % Seg Neuts % (Manual) Nucleated RBC % Seg Neutrophils # POC ABG pH POC ABG pCO2 Sodium Potassium Chloride Carbon Dioxide BUN Creatinine 0.6 L Glucose 268 H POC Glucose 212 H 260 H Lactic Acid Calcium 8.1 L Magnesium Total Creatine Kinase Troponin T Albumin Triglycerides HDL Cholesterol 02/03/19 02/03/19 02/03/19 07:00 08:23 12:49 WBC RBC Hgb 9.7 L Hct 29.7 L MCV 76 L MCH 25 L MCHC RDW 17.0 H Lymph % (Auto) Miller % (Auto) Lymph # Jarod # Baso # Seg Neutrophils % Seg Neuts % (Manual) Nucleated RBC % Seg Neutrophils # POC ABG pH POC ABG pCO2 Sodium Potassium Chloride Carbon Dioxide BUN Creatinine Glucose POC Glucose 275 H 198 H Lactic Acid Calcium Magnesium Total Creatine Kinase Troponin T Albumin Triglycerides HDL Cholesterol 02/03/19 02/04/19 02/04/19 21:50 02:23 05:17 WBC RBC Hgb Hct MCV MCH MCHC RDW Lymph % (Auto) Miller % (Auto) Lymph # Jarod # [place] # Seg Neutrophils % Seg Neuts % (Manual) Nucleated RBC % Seg Neutrophils # POC ABG pH POC ABG pCO2 Sodium Potassium Chloride Carbon Dioxide BUN Creatinine Glucose POC Glucose 153 H 139 H 180 H Lactic Acid Calcium Magnesium Total Creatine Kinase Troponin T Albumin Triglycerides HDL Cholesterol 02/04/19 02/04/19 02/04/19 09:47 14:40 18:03 WBC RBC Hgb Hct MCV MCH MCHC RDW Lymph % (Auto) Miller % (Auto) Lymph # Jarod # Baso # Seg Neutrophils % Seg Neuts % (Manual) Nucleated RBC % Seg Neutrophils # POC ABG pH POC ABG pCO2 Sodium Potassium Chloride Carbon Dioxide BUN Creatinine Glucose POC Glucose 204 H 176 H 180 H Lactic Acid Calcium Magnesium Total Creatine Kinase Troponin T Albumin Triglycerides HDL Cholesterol 02/04/19 02/04/19 02/05/19 18:35 21:35 01:31 WBC RBC Hgb Hct MCV MCH MCHC RDW Lymph % (Auto) Miller % (Auto) Lymph # Jarod # Baso # Seg Neutrophils % Seg Neuts % (Manual) Nucleated RBC % Seg Neutrophils # POC ABG pH POC ABG pCO2 Sodium Potassium Chloride Carbon Dioxide BUN Creatinine Glucose POC Glucose 146 H 118 H 154 H Lactic Acid Calcium Magnesium Total Creatine Kinase Troponin T Albumin Triglycerides HDL Cholesterol 02/05/19 02/05/19 02/05/19 05:56 07:58 12:16 WBC RBC Hgb Hct MCV MCH MCHC RDW Lymph % (Auto) Miller % (Auto) Lymph # Jarod # Baso # Seg Neutrophils % Seg Neuts % (Manual) Nucleated RBC % Seg Neutrophils # POC ABG pH POC ABG pCO2 Sodium Potassium Chloride Carbon Dioxide BUN Creatinine Glucose POC Glucose 182 H 210 H 166 H Lactic Acid Calcium Magnesium Total Creatine Kinase Troponin T Albumin Triglycerides HDL Cholesterol 02/05/19 02/05/19 02/06/19 16:40 21:15 07:36 WBC RBC Hgb Hct MCV MCH MCHC RDW Lymph % (Auto) Miller % (Auto) Lymph # Jarod # Baso # Seg Neutrophils % Seg Neuts % (Manual) Nucleated RBC % Seg Neutrophils # POC ABG pH POC ABG pCO2 Sodium Potassium Chloride Carbon Dioxide BUN Creatinine Glucose POC Glucose 119 H 162 H 168 H Lactic Acid Calcium Magnesium Total Creatine Kinase Troponin T Albumin Triglycerides HDL Cholesterol 02/06/19 02/06/19 02/06/19 11:20 13:26 16:32 WBC RBC Hgb Hct MCV MCH MCHC RDW Lymph % (Auto) Miller % (Auto) Lymph # Jarod # Baso # Seg Neutrophils % Seg Neuts % (Manual) Nucleated RBC % Seg Neutrophils # POC ABG pH POC ABG pCO2 Sodium Potassium Chloride Carbon Dioxide BUN Creatinine 0.6 L Glucose 187 H POC Glucose 132 H 170 H Lactic Acid Calcium Magnesium 1.50 L Total Creatine Kinase Troponin T Albumin Triglycerides HDL Cholesterol 02/06/19 02/07/19 02/07/19 21:15 07:36 11:26 WBC RBC Hgb Hct MCV MCH MCHC RDW Lymph % (Auto) Miller % (Auto) Lymph # Jarod # Baso # Seg Neutrophils % Seg Neuts % (Manual) Nucleated RBC % Seg Neutrophils # POC ABG pH POC ABG pCO2 Sodium Potassium Chloride Carbon Dioxide BUN Creatinine Glucose POC Glucose 153 H 178 H 190 H Lactic Acid Calcium Magnesium Total Creatine Kinase Troponin T Albumin Triglycerides HDL Cholesterol Allied health notes reviewed: nursing
--- NOTE | 2019-02-07 12:37 | Progress Note ---
Assessment and Plan Assessment and plan: Metabolic encephalopathy. Patient remains confused requiring restraints. Continue to treat underlying causes of hypernatremia. Neurology following. Head CT negative. Obtain MRI Brain Hypernatremia. Now resolved. Acute renal failure/MYRTLE. Resolved Dysphagia, Spoke to mother Di Syed, about PEG tube placement and she is agreeable. Discussed with GI For PEG tube placement tomorrow. Hyperlipidemia. Continue statins. Hypokalemia. Replete potassium as needed. Hypertension. Continue antihypertensive medications. Diabetes mellitus type 2. Continue Accu-Cheks qac hs, Sliding scale regular insulin and Lantus History Interval history: Altered mental status Dysphagia Hospitalist Physical - Physical exam Narrative exam: Gen: Not in acute distress, lying in bed HEENT: Normocephalic, atraumatic Neck: supple, no JVD Heart: S1 and S2 reg, no murmurs, rubs or gallop Lungs: Clear, no crackles Abd: soft, non tender, non distended, normal BS Ext: No edema, no clubbing, no cyanosis, Neuro: Lethargic - Constitutional Vitals: Temp Pulse Resp BP Pulse Ox 98.4 F 101 H 28 H 136/92 100 02/07/19 03:03 02/07/19 03:03 02/07/19 03:03 02/07/19 03:03 02/06/19 22:31 General appearance: Present: no acute distress Results - Labs CBC & Chem 7: 02/03/19 07:00 02/06/19 13:26 Labs: Laboratory Last Values WBC 6.2 K/mm3 (4.5-11.0) 02/03/19 07:00 RBC 3.91 M/mm3 (3.65-5.03) 02/03/19 07:00 Hgb 9.7 gm/dl (11.8-15.2) L 02/03/19 07:00 Hct 29.7 % (35.5-45.6) L 02/03/19 07:00 MCV 76 fl (84-94) L 02/03/19 07:00 MCH 25 pg (28-32) L 02/03/19 07:00 MCHC 33 % (32-34) 02/03/19 07:00 RDW 17.0 % (13.2-15.2) H 02/03/19 07:00 Plt Count 195 K/mm3 (140-440) 02/03/19 07:00 Lymph % (Auto) 19.1 % (13.4-35.0) 01/28/19 06:04 [place] % (Auto) 8.7 % (0.0-7.3) H 01/28/19 06:04 Eos % (Auto) 3.1 % (0.0-4.3) 01/28/19 06:04 Baso % (Auto) 0.3 % (0.0-1.8) 01/28/19 06:04 Lymph # 1.3 K/mm3 (1.2-5.4) 01/28/19 06:04 [place] # 0.6 K/mm3 (0.0-0.8) 01/28/19 06:04 Eos # 0.2 K/mm3 (0.0-0.4) 01/28/19 06:04 Baso # 0.0 K/mm3 (0.0-0.1) 01/28/19 06:04 Add Manual Diff Complete 02/01/19 03:50 Total Counted 100 02/01/19 03:50 Seg Neutrophils % 68.8 % (40.0-70.0) 01/28/19 06:04 Seg Neuts % (Manual) 78.0 % (40.0-70.0) H 02/01/19 03:50 1.0 % 02/01/19 03:50 16.0 % (13.4-35.0) 02/01/19 03:50 Reactive Lymphs % (Man) 0 % 02/01/19 03:50 1.0 % (0.0-7.3) 02/01/19 03:50 4.0 % (0.0-4.3) 02/01/19 03:50 0 % (0.0-1.8) 02/01/19 03:50 0 % 02/01/19 03:50 0 % 02/01/19 03:50 0 % 02/01/19 03:50 0 % 02/01/19 03:50 Nucleated RBC % Not Reportable 02/01/19 03:50 Seg Neutrophils # 4.8 K/mm3 (1.8-7.7) 01/28/19 06:04 Seg Neutrophils # Man 6.4 K/mm3 (1.8-7.7) 02/01/19 03:50 Band Neutrophils # 0.1 K/mm3 02/01/19 03:50 1.3 K/mm3 (1.2-5.4) 02/01/19 03:50 Abs React Lymphs (Man) 0.0 K/mm3 02/01/19 03:50 0.1 K/mm3 (0.0-0.8) 02/01/19 03:50 0.3 K/mm3 (0.0-0.4) 02/01/19 03:50 0.0 K/mm3 (0.0-0.1) 02/01/19 03:50 0.0 K/mm3 02/01/19 03:50 0.0 K/mm3 02/01/19 03:50 0.0 K/mm3 02/01/19 03:50 Blast Cells # 0.0 K/mm3 02/01/19 03:50 WBC Morphology Not Reportable 02/01/19 03:50 Hypersegmented Neuts Not Reportable 02/01/19 03:50 Hyposegmented Neuts Not Reportable 02/01/19 03:50 Hypogranular Neuts Not Reportable 02/01/19 03:50 Not Reportable 02/01/19 03:50 Not Reportable 02/01/19 03:50 Not Reportable 02/01/19 03:50 Not Reportable 02/01/19 03:50 Not Reportable 02/01/19 03:50 Not Reportable 02/01/19 03:50 Appears normal 02/01/19 03:50 Not Reportable 02/01/19 03:50 Plt Clumps, EDTA Not Reportable 02/01/19 03:50 Not Reportable 02/01/19 03:50 Not Reportable 02/01/19 03:50 Not Reportable 02/01/19 03:50 Plt Morphology Comment Not Reportable 02/01/19 03:50 RBC Morphology Not Reportable 02/01/19 03:50 Dimorphic RBCs Not Reportable 02/01/19 03:50 Not Reportable 02/01/19 03:50 1+ 02/01/19 03:50 Not Reportable 02/01/19 03:50 1+ 02/01/19 03:50 Not Reportable 02/01/19 03:50 Not Reportable 02/01/19 03:50 Not Reportable 02/01/19 03:50 Not Reportable 02/01/19 03:50 Not Reportable 02/01/19 03:50 Not Reportable 02/01/19 03:50 Not Reportable 02/01/19 03:50 Not Reportable 02/01/19 03:50 Not Reportable 02/01/19 03:50 Not Reportable 02/01/19 03:50 Not Reportable 02/01/19 03:50 Not Reportable 02/01/19 03:50 Not Reportable 02/01/19 03:50 Not Reportable 02/01/19 03:50 Not Reportable 02/01/19 03:50 Acanthocytes (Spur) Not Reportable 02/01/19 03:50 Rouleaux Not Reportable 02/01/19 03:50 Not Reportable 02/01/19 03:50 Not Reportable 02/01/19 03:50 Not Reportable 02/01/19 03:50 Not Reportable 02/01/19 03:50 Hem Pathologist Commnt No 02/01/19 03:50 PT 12.8 Sec. (12.2-14.9) 02/04/19 15:38 INR 0.91 (0.87-1.13) 02/04/19 15:38 POC ABG pH 7.479 (7.35-7.45) H 01/28/19 19:00 POC ABG pCO2 32.3 (35-45) L 01/28/19 19:00 POC ABG pO2 93 (80-105) 01/28/19 19:00 POC ABG HCO3 24.0 (22-26 mml/L) 01/28/19 19:00 POC ABG Total CO2 25 (23-27mmol/L) 01/28/19 19:00 POC ABG O2 Sat 98 01/28/19 19:00 POC ABG Base Excess 0 ((-2) - (+3)mmol/L) 01/28/19 19:00 21 % 01/28/19 19:00 Sodium 139 mmol/L (137-145) 02/06/19 13:26 Potassium 4.2 mmol/L (3.6-5.0) 02/06/19 13:26 Chloride 99.8 mmol/L (98-107) 02/06/19 13:26 Carbon Dioxide 29 mmol/L (22-30) 02/06/19 13:26 14 mmol/L 02/06/19 13:26 BUN 13 mg/dL (9-20) 02/06/19 13:26 0.6 mg/dL (0.8-1.5) L 02/06/19 13:26 Estimated GFR > 60 ml/min 02/06/19 13:26 22 % 02/06/19 13:26 Glucose 187 mg/dL (75-100) H 02/06/19 13:26 POC Glucose 190 (70-105) H 02/07/19 11:26 Lactic Acid 1.40 mmol/L (0.7-2.0) 01/25/19 18:50 Calcium 8.7 mg/dL (8.4-10.2) 02/06/19 13:26 Magnesium 1.50 mg/dL (1.7-2.3) L 02/06/19 13:26 0.20 mg/dL (0.1-1.2) 01/26/19 04:25 AST 12 units/L (5-40) 01/26/19 04:25 ALT 17 units/L (7-56) 01/26/19 04:25 84 units/L (35-129) 01/26/19 04:25 41.0 umol/L (25-60) 01/31/19 13:26 294 units/L (55-170) H 01/25/19 13:31 CK-MB (CK-2) 2.2 ng/mL (0.0-4.0) 01/25/19 13:31 CK-MB (CK-2) Rel Index 0.7 (0-4) 01/25/19 13:31 0.031 ng/mL (0.00-0.029) H D 01/26/19 04:25 6.4 g/dL (6.3-8.2) 01/26/19 04:25 2.3 g/dL (3.9-5) L 01/26/19 04:25 0.6 % 01/26/19 04:25 Triglycerides 172 mg/dL (2-149) H 01/25/19 13:31 Cholesterol 148 mg/dL (50-199) 01/25/19 13:31 82 mg/dL (50-130) 01/25/19 13:31 30 mg/dL (40-59) L 01/25/19 13:31 4.93 % 01/25/19 13:31 TSH 4.020 mlU/mL (0.270-4.200) 01/25/19 13:31 Free T4 0.89 ng/dL (0.76-1.46) 01/25/19 13:31 Yellow (Yellow) 01/25/19 15:00 Slightly-cloudy (Clear) 01/25/19 15:00 5.0 (5.0-7.0) 01/25/19 15:00 Ur Specific [place] 1.018 (1.003-1.030) 01/25/19 15:00 <15 mg/dl mg/dL (Negative) 01/25/19 15:00 50 mg/dL (Negative) 01/25/19 15:00 Neg mg/dL (Negative) 01/25/19 15:00 Neg (Negative) 01/25/19 15:00 Neg (Negative) 01/25/19 15:00 Neg (Negative) 01/25/19 15:00 4.0 mg/dL (<2.0) 01/25/19 15:00 Ur Leukocyte Esterase Neg (Negative) 01/25/19 15:00 3.0 /HPF (0.0-6.0) 01/25/19 15:00 1.0 /HPF (0.0-6.0) 01/25/19 15:00 U Epithel Cells (Auto) < 1.0 /HPF (0-13.0) 01/25/19 15:00 Hyaline Casts 9 /LPF 01/25/19 15:00 Active Medications - Current Medications Current Medications: Generic Name Dose Route Start Last Admin Trade Name Freq PRN Reason Stop Dose Admin Lipase/Protease/Amylase 1 each 01/26/19 11:47 Pancreaze 10,500 Unit FEEDTUBE PRN PRN For Clogged Feeding Tube Heparin Sodium (Porcine) 5,000 unit 01/25/19 22:00 02/07/19 09:59 Heparin SUB-Q 5,000 unit Q12HR NIKOLAS Administration Hydralazine HCl 10 mg 02/03/19 22:00 Apresoline IV Q8HR PRN Hypertension Insulin Glargine 45 units 01/29/19 22:00 02/06/19 21:51 Lantus SUB-Q 45 units QHS NIKOLAS Administration Insulin Human Lispro 0 unit 02/05/19 07:30 02/07/19 07:30 Humalog SUB-Q 3 unit ACHS NIKOLAS Administration Protocol Simple Syrup 15 ml 01/26/19 11:47 Simple Syrup FEEDTUBE PRN PRN Hypoglycemia Simple Syrup 30 ml 01/26/19 11:47 Simple Syrup FEEDTUBE PRN PRN Hypoglycemia Sodium Bicarbonate 325 mg 01/26/19 11:47 Sodium Bicarbonate FEEDTUBE PRN PRN For Clogged Feeding Tube Sodium Chloride 10 ml 01/25/19 22:00 02/07/19 10:01 Sodium Chloride Flush Syringe 10 Ml IV 10 ml BID NIKOLAS Administration Sodium Chloride 10 ml 01/25/19 17:46 Sodium Chloride Flush Syringe 10 Ml IV PRN PRN LINE FLUSH Nutrition/Malnutrition Assess - Dietary Evaluation Nutrition/Malnutrition Findings: Nutrition Notes Start: 01/26/19 08:45 Freq: Status: Active Protocol: Document 02/04/19 15:20 RM (Rec: 02/04/19 15:28 RM [id number]) Nutrition Notes Initial or Follow up Reassessment Current Diagnosis Acute Kidney Injury, Hypertension Other Pertinent Diagnosis Hyperkalemia, Acute encephalopathy, Dehydration, Multiple PUs Current Diet Nepo 1.8 at 50 ml/hr Labs/Tests Reviewed Pertinent Medications Reviewed Height 5 ft 6 in Weight 72.5 kg [place] Body Weight (kg) 64.54 BMI 25.7 Subjective/Other Information Observed Nepro infusing at 50 ml/hr. Per nurse pt is tolerating TF. Percent of energy/protein needs met: 100%/100% Burn Absent Trauma Absent #1 Nutrition Diagnosis Inadequate oral intake Diagnosis Progress(for reassessment Continues documentation) Is patient on ventilator? No Is Patient Ambulatory and/or Out of Bed No [facility] 4468.901 Calculation Used for Recommendations [place] or Additional Notes PRO: 1.0-1.3 g/kg (75-98 g/day ) Fluid: 1500 mL or per MD Nutrition Intervention Nutrition Support: Glucerna 1.2 at 60 ml/hr. Water flush of 100 mls q 4 hrs . Kcal 1,728 Protein (gm) 86 Fluid (mL) 1,159 Goal #1 TF tolerance Goal #2 Meet at least 75% of calorie and protein needs via TF Anticipated Discharge Needs: Unable to determine at this time Follow-Up By: 02/08/19 Additional Comments Follow for new TF
[2019-02-07] MEDS: LANTUS SUB-Q SCH (22:42)
[2019-02-08] MEDS: HumaLOG SUB-Q SCH ×4 (08:00→22:48)
--- NOTE | 2019-02-08 08:13 | Progress Note ---
Subjective Date of service: 02/08/19 Principal diagnosis: Ac. Encephalopathy; MYRTEL; Hypernatremia; Hyperkalemia; IDDM Interval history: very little improvement in state of alertness from effect of prior stroke see my note about CT the shunt CONSULTANT is working effective Objective - Vital Sign Vital Signs - 12hr 02/07/19 22:11 Temperature 99.0 F Pulse Rate 109 H Respiratory 24 Rate Blood Pressure 133/84 O2 Sat by Pulse 96 Oximetry - Laboratory Findings CBC and BMP: 02/03/19 07:00 02/06/19 13:26 Abnormal Lab Findings: Abnormal Labs 01/25/19 01/25/19 01/25/19 13:31 13:31 13:31 WBC 12.0 H RBC 6.00 H Hgb Hct 47.7 H MCV 80 L MCH 25 L MCHC 31 L RDW 18.1 H Lymph % (Auto) 10.4 L Dillon % (Auto) 9.3 H Lymph # Dillon # 1.1 H Baso # Seg Neutrophils % 78.5 H Seg Neuts % (Manual) Nucleated RBC % Seg Neutrophils # 9.5 H POC ABG pH POC ABG pCO2 Sodium 159 H Potassium 6.0 H Chloride 119.0 H Carbon Dioxide BUN 185 H Creatinine 5.7 H D Glucose 433 H POC Glucose Lactic Acid 2.60 H* Calcium Magnesium Total Creatine Kinase 294 H Troponin T 0.080 H Albumin 2.6 L Triglycerides 172 H HDL Cholesterol 30 L 01/25/19 01/25/19 01/25/19 16:03 16:03 17:11 WBC RBC Hgb Hct MCV MCH MCHC RDW Lymph % (Auto) [place] % (Auto) Lymph # [place] # Baso # Seg Neutrophils % Seg Neuts % (Manual) Nucleated RBC % Seg Neutrophils # POC ABG pH POC ABG pCO2 Sodium Potassium Chloride Carbon Dioxide BUN Creatinine Glucose POC Glucose 346 H Lactic Acid 2.20 H* 2.30 H* Calcium Magnesium Total Creatine Kinase Troponin T Albumin Triglycerides HDL Cholesterol 01/25/19 01/25/19 01/26/19 18:50 23:08 00:22 WBC RBC Hgb Hct MCV MCH MCHC RDW Lymph % (Auto) [place] % (Auto) Lymph # [place] # Baso # Seg Neutrophils % Seg Neuts % (Manual) Nucleated RBC % Seg Neutrophils # POC ABG pH POC ABG pCO2 Sodium 162 H* Potassium Chloride 125.2 H Carbon Dioxide BUN 180 H Creatinine 5.1 H Glucose 438 H POC Glucose 480 H Lactic Acid Calcium Magnesium Total Creatine Kinase Troponin T 0.045 H D Albumin Triglycerides HDL Cholesterol 01/26/19 01/26/19 01/26/19 02:16 04:25 04:25 WBC RBC 5.21 H Hgb Hct MCV 80 L MCH 25 L MCHC 31 L RDW 18.0 H Lymph % (Auto) 8.2 L [place] % (Auto) 7.6 H Lymph # 0.8 L [place] # Baso # 0.2 H Seg Neutrophils % 81.6 H Seg Neuts % (Manual) Nucleated RBC % Seg Neutrophils # 8.3 H POC ABG pH POC ABG pCO2 Sodium 158 H Potassium Chloride 122.9 H Carbon Dioxide 21 L BUN 163 H Creatinine 3.9 H Glucose 465 H POC Glucose 462 H Lactic Acid Calcium 7.8 L Magnesium Total Creatine Kinase Troponin T Albumin 2.3 L Triglycerides HDL Cholesterol 01/26/19 01/26/19 01/26/19 04:25 05:33 10:08 WBC RBC Hgb Hct MCV MCH MCHC RDW Lymph % (Auto) [place] % (Auto) Lymph # [place] # Baso # Seg Neutrophils % Seg Neuts % (Manual) Nucleated RBC % Seg Neutrophils # POC ABG pH POC ABG pCO2 Sodium 160 H Potassium Chloride 123.9 H Carbon Dioxide 19 L BUN 161 H Creatinine 3.9 H Glucose 468 H POC Glucose 309 H 316 H Lactic Acid Calcium 7.8 L Magnesium Total Creatine Kinase Troponin T 0.031 H D Albumin Triglycerides HDL Cholesterol 01/26/19 01/26/19 01/27/19 14:30 16:11 03:18 WBC RBC Hgb Hct MCV MCH MCHC RDW Lymph % (Auto) [place] % (Auto) Lymph # [place] # Baso # Seg Neutrophils % Seg Neuts % (Manual) Nucleated RBC % Seg Neutrophils # POC ABG pH POC ABG pCO2 Sodium 160 H Potassium 3.4 L D Chloride 124.8 H Carbon Dioxide BUN 141 H Creatinine 2.9 H Glucose 126 H POC Glucose 167 H 184 H Lactic Acid Calcium 8.3 L Magnesium Total Creatine Kinase Troponin T Albumin Triglycerides HDL Cholesterol 01/27/19 01/27/19 01/27/19 06:23 06:33 06:33 WBC RBC Hgb Hct MCV 79 L MCH 25 L MCHC 31 L RDW 17.7 H Lymph % (Auto) [place] % (Auto) 8.1 H Lymph # [place] # Baso # Seg Neutrophils % 71.1 H Seg Neuts % (Manual) Nucleated RBC % Seg Neutrophils # POC ABG pH POC ABG pCO2 Sodium 157 H Potassium Chloride 121.4 H Carbon Dioxide BUN 117 H Creatinine 1.9 H Glucose 200 H POC Glucose 219 H Lactic Acid Calcium 8.3 L Magnesium Total Creatine Kinase Troponin T Albumin Triglycerides HDL Cholesterol 01/27/19 01/27/19 01/27/19 11:13 12:46 16:10 WBC RBC Hgb Hct MCV MCH MCHC RDW Lymph % (Auto) [place] % (Auto) Lymph # [place] # Baso # Seg Neutrophils % Seg Neuts % (Manual) Nucleated RBC % Seg Neutrophils # POC ABG pH POC ABG pCO2 Sodium Potassium Chloride Carbon Dioxide BUN Creatinine Glucose POC Glucose 200 H 205 H 230 H Lactic Acid Calcium Magnesium Total Creatine Kinase Troponin T Albumin Triglycerides HDL Cholesterol 01/28/19 01/28/19 01/28/19 00:09 06:04 06:04 WBC RBC Hgb 11.5 L Hct MCV 77 L MCH 25 L MCHC RDW 17.4 H Lymph % (Auto) [place] % (Auto) 8.7 H Lymph # [place] # Baso # Seg Neutrophils % Seg Neuts % (Manual) Nucleated RBC % Seg Neutrophils # POC ABG pH POC ABG pCO2 Sodium 159 H Potassium 3.3 L Chloride 123.1 H Carbon Dioxide BUN 75 H Creatinine Glucose 310 H POC Glucose 177 H Lactic Acid Calcium Magnesium Total Creatine Kinase Troponin T Albumin Triglycerides HDL Cholesterol 01/28/19 01/28/19 01/28/19 06:42 12:28 15:10 WBC RBC Hgb Hct MCV MCH MCHC RDW Lymph % (Auto) [place] % (Auto) Lymph # [place] # Baso # Seg Neutrophils % Seg Neuts % (Manual) Nucleated RBC % Seg Neutrophils # POC ABG pH POC ABG pCO2 Sodium Potassium Chloride Carbon Dioxide BUN Creatinine Glucose POC Glucose 384 H 280 H 282 H Lactic Acid Calcium Magnesium Total Creatine Kinase Troponin T Albumin Triglycerides HDL Cholesterol 01/28/19 01/28/19 01/28/19 18:54 19:00 21:44 WBC RBC Hgb Hct MCV MCH MCHC RDW Lymph % (Auto) [place] % (Auto) Lymph # [place] # Baso # Seg Neutrophils % Seg Neuts % (Manual) Nucleated RBC % Seg Neutrophils # POC ABG pH 7.479 H POC ABG pCO2 32.3 L Sodium Potassium Chloride Carbon Dioxide BUN Creatinine Glucose POC Glucose 189 H 179 H Lactic Acid Calcium Magnesium Total Creatine Kinase Troponin T Albumin Triglycerides HDL Cholesterol 01/29/19 01/29/19 01/29/19 01:48 04:37 05:38 WBC RBC Hgb Hct MCV MCH MCHC RDW Lymph % (Auto) [place] % (Auto) Lymph # [place] # Baso # Seg Neutrophils % Seg Neuts % (Manual) Nucleated RBC % Seg Neutrophils # POC ABG pH POC ABG pCO2 Sodium 164 H* Potassium 3.5 L Chloride 128.9 H Carbon Dioxide BUN 54 H Creatinine Glucose 271 H POC Glucose 238 H 248 H Lactic Acid Calcium Magnesium Total Creatine Kinase Troponin T Albumin Triglycerides HDL Cholesterol 01/29/19 01/29/19 01/29/19 10:26 13:19 17:57 WBC RBC Hgb Hct MCV MCH MCHC RDW Lymph % (Auto) [place] % (Auto) Lymph # Jarod # Baso # Seg Neutrophils % Seg Neuts % (Manual) Nucleated RBC % Seg Neutrophils # POC ABG pH POC ABG pCO2 Sodium Potassium Chloride Carbon Dioxide BUN Creatinine Glucose POC Glucose 288 H 301 H 242 H Lactic Acid Calcium Magnesium Total Creatine Kinase Troponin T Albumin Triglycerides HDL Cholesterol 01/29/19 01/30/19 01/30/19 20:25 01:51 05:23 WBC RBC Hgb Hct MCV MCH MCHC RDW Lymph % (Auto) [place] % (Auto) Lymph # Jarod # [place] # Seg Neutrophils % Seg Neuts % (Manual) Nucleated RBC % Seg Neutrophils # POC ABG pH POC ABG pCO2 Sodium Potassium Chloride Carbon Dioxide BUN Creatinine Glucose POC Glucose 223 H 229 H 218 H Lactic Acid Calcium Magnesium Total Creatine Kinase Troponin T Albumin Triglycerides HDL Cholesterol 01/30/19 01/30/19 01/30/19 07:16 10:26 14:24 WBC RBC Hgb Hct MCV MCH MCHC RDW Lymph % (Auto) [place] % (Auto) Lymph # [place] # Baso # Seg Neutrophils % Seg Neuts % (Manual) Nucleated RBC % Seg Neutrophils # POC ABG pH POC ABG pCO2 Sodium 155 H D Potassium 3.2 L Chloride 118.4 H Carbon Dioxide BUN 40 H Creatinine Glucose 246 H POC Glucose 257 H 240 H Lactic Acid Calcium 8.3 L Magnesium Total Creatine Kinase Troponin T Albumin Triglycerides HDL Cholesterol 05/01/1501/30/19 01/30/19 18:30 20:44 23:38 WBC RBC Hgb Hct MCV MCH MCHC RDW Lymph % (Auto) [place] % (Auto) Lymph # [place] # Baso # Seg Neutrophils % Seg Neuts % (Manual) Nucleated RBC % Seg Neutrophils # POC ABG pH POC ABG pCO2 Sodium Potassium Chloride Carbon Dioxide BUN Creatinine Glucose POC Glucose 327 H 300 H 279 H Lactic Acid Calcium Magnesium Total Creatine Kinase Troponin T Albumin Triglycerides HDL Cholesterol 01/31/19 01/31/19 01/31/19 01:57 04:42 04:42 WBC RBC Hgb 10.1 L Hct 31.7 L MCV 79 L MCH 25 L MCHC RDW 17.4 H Lymph % (Auto) [place] % (Auto) Lymph # [place] # Baso # Seg Neutrophils % Seg Neuts % (Manual) 75.0 H Nucleated RBC % 2.0 H Seg Neutrophils # POC ABG pH POC ABG pCO2 Sodium 147 H D Potassium 3.2 L Chloride 110.0 H Carbon Dioxide BUN 28 H Creatinine Glucose 261 H POC Glucose 270 H Lactic Acid Calcium 7.8 L Magnesium Total Creatine Kinase Troponin T Albumin Triglycerides HDL Cholesterol 01/31/19 01/31/19 01/31/19 05:10 08:46 17:10 WBC RBC Hgb Hct MCV MCH MCHC RDW Lymph % (Auto) [place] % (Auto) Lymph # [place] # Baso # Seg Neutrophils % Seg Neuts % (Manual) Nucleated RBC % Seg Neutrophils # POC ABG pH POC ABG pCO2 Sodium Potassium Chloride Carbon Dioxide BUN Creatinine Glucose POC Glucose 239 H 242 H 298 H Lactic Acid Calcium Magnesium Total Creatine Kinase Troponin T Albumin Triglycerides HDL Cholesterol 01/31/19 02/01/19 02/01/19 21:10 02:17 03:50 WBC RBC Hgb Hct MCV MCH MCHC RDW Lymph % (Auto) [place] % (Auto) Lymph # [place] # Baso # Seg Neutrophils % Seg Neuts % (Manual) Nucleated RBC % Seg Neutrophils # POC ABG pH POC ABG pCO2 Sodium 146 H Potassium Chloride 110.9 H Carbon Dioxide 21 L BUN 26 H Creatinine 0.7 L Glucose 240 H POC Glucose 304 H 240 H Lactic Acid Calcium 8.3 L Magnesium Total Creatine Kinase Troponin T Albumin Triglycerides HDL Cholesterol 02/01/19 02/01/19 02/01/19 03:50 05:35 10:11 WBC RBC Hgb 10.2 L Hct 31.4 L MCV 78 L MCH 25 L MCHC RDW 16.9 H Lymph % (Auto) [place] % (Auto) Lymph # [place] # Baso # Seg Neutrophils % Seg Neuts % (Manual) 78.0 H Nucleated RBC % Seg Neutrophils # POC ABG pH POC ABG pCO2 Sodium Potassium Chloride Carbon Dioxide BUN Creatinine Glucose POC Glucose 208 H 186 H Lactic Acid Calcium Magnesium Total Creatine Kinase Troponin T Albumin Triglycerides HDL Cholesterol 02/01/19 02/01/19 02/01/19 14:35 17:25 20:44 WBC RBC Hgb Hct MCV MCH MCHC RDW Lymph % (Auto) [place] % (Auto) Lymph # [place] # Baso # Seg Neutrophils % Seg Neuts % (Manual) Nucleated RBC % Seg Neutrophils # POC ABG pH POC ABG pCO2 Sodium Potassium Chloride Carbon Dioxide BUN Creatinine Glucose POC Glucose 222 H 193 H 204 H Lactic Acid Calcium Magnesium Total Creatine Kinase Troponin T Albumin Triglycerides HDL Cholesterol 02/02/19 02/02/19 02/02/19 07:17 07:26 12:11 WBC RBC Hgb Hct MCV MCH MCHC RDW Lymph % (Auto) [place] % (Auto) Lymph # [place] # Baso # Seg Neutrophils % Seg Neuts % (Manual) Nucleated RBC % Seg Neutrophils # POC ABG pH POC ABG pCO2 Sodium Potassium 3.3 L D Chloride 107.8 H Carbon Dioxide BUN Creatinine 0.6 L Glucose 117 H POC Glucose 110 H 115 H Lactic Acid Calcium 7.9 L Magnesium Total Creatine Kinase Troponin T Albumin Triglycerides HDL Cholesterol 02/02/19 02/02/19 02/02/19 16:10 18:30 18:50 WBC RBC Hgb Hct MCV MCH MCHC RDW Lymph % (Auto) [place] % (Auto) Lymph # [place] # Baso # Seg Neutrophils % Seg Neuts % (Manual) Nucleated RBC % Seg Neutrophils # POC ABG pH POC ABG pCO2 Sodium Potassium Chloride Carbon Dioxide BUN Creatinine Glucose POC Glucose 182 H 200 H 198 H Lactic Acid Calcium Magnesium Total Creatine Kinase Troponin T Albumin Triglycerides HDL Cholesterol 02/03/19 02/03/19 02/03/19 00:40 06:50 07:00 WBC RBC Hgb Hct MCV MCH MCHC RDW Lymph % (Auto) [place] % (Auto) Lymph # [place] # Baso # Seg Neutrophils % Seg Neuts % (Manual) Nucleated RBC % Seg Neutrophils # POC ABG pH POC ABG pCO2 Sodium Potassium Chloride Carbon Dioxide BUN Creatinine 0.6 L Glucose 268 H POC Glucose 212 H 260 H Lactic Acid Calcium 8.1 L Magnesium Total Creatine Kinase Troponin T Albumin Triglycerides HDL Cholesterol 02/03/19 02/03/19 02/03/19 07:00 08:23 12:49 WBC RBC Hgb 9.7 L Hct 29.7 L MCV 76 L MCH 25 L MCHC RDW 17.0 H Lymph % (Auto) [place] % (Auto) Lymph # [place] # Baso # Seg Neutrophils % Seg Neuts % (Manual) Nucleated RBC % Seg Neutrophils # POC ABG pH POC ABG pCO2 Sodium Potassium Chloride Carbon Dioxide BUN Creatinine Glucose POC Glucose 275 H 198 H Lactic Acid Calcium Magnesium Total Creatine Kinase Troponin T Albumin Triglycerides HDL Cholesterol 02/03/19 02/04/19 02/04/19 21:50 02:23 05:17 WBC RBC Hgb Hct MCV MCH MCHC RDW Lymph % (Auto) [place] % (Auto) Lymph # [place] # Baso # Seg Neutrophils % Seg Neuts % (Manual) Nucleated RBC % Seg Neutrophils # POC ABG pH POC ABG pCO2 Sodium Potassium Chloride Carbon Dioxide BUN Creatinine Glucose POC Glucose 153 H 139 H 180 H Lactic Acid Calcium Magnesium Total Creatine Kinase Troponin T Albumin Triglycerides HDL Cholesterol 02/04/19 02/04/19 02/04/19 09:47 14:40 18:03 WBC RBC Hgb Hct MCV MCH MCHC RDW Lymph % (Auto) [place] % (Auto) Lymph # [place] # Baso # Seg Neutrophils % Seg Neuts % (Manual) Nucleated RBC % Seg Neutrophils # POC ABG pH POC ABG pCO2 Sodium Potassium Chloride Carbon Dioxide BUN Creatinine Glucose POC Glucose 204 H 176 H 180 H Lactic Acid Calcium Magnesium Total Creatine Kinase Troponin T Albumin Triglycerides HDL Cholesterol 02/04/19 02/04/19 02/05/19 18:35 21:35 01:31 WBC RBC Hgb Hct MCV MCH MCHC RDW Lymph % (Auto) [place] % (Auto) Lymph # [place] # Baso # Seg Neutrophils % Seg Neuts % (Manual) Nucleated RBC % Seg Neutrophils # POC ABG pH POC ABG pCO2 Sodium Potassium Chloride Carbon Dioxide BUN Creatinine Glucose POC Glucose 146 H 118 H 154 H Lactic Acid Calcium Magnesium Total Creatine Kinase Troponin T Albumin Triglycerides HDL Cholesterol 02/05/19 02/05/19 02/05/19 05:56 07:58 12:16 WBC RBC Hgb Hct MCV MCH MCHC RDW Lymph % (Auto) [place] % (Auto) Lymph # [place] # Baso # Seg Neutrophils % Seg Neuts % (Manual) Nucleated RBC % Seg Neutrophils # POC ABG pH POC ABG pCO2 Sodium Potassium Chloride Carbon Dioxide BUN Creatinine Glucose POC Glucose 182 H 210 H 166 H Lactic Acid Calcium Magnesium Total Creatine Kinase Troponin T Albumin Triglycerides HDL Cholesterol 02/05/19 02/05/19 02/06/19 16:40 21:15 07:36 WBC RBC Hgb Hct MCV MCH MCHC RDW Lymph % (Auto) [place] % (Auto) Lymph # [place] # Baso # Seg Neutrophils % Seg Neuts % (Manual) Nucleated RBC % Seg Neutrophils # POC ABG pH POC ABG pCO2 Sodium Potassium Chloride Carbon Dioxide BUN Creatinine Glucose POC Glucose 119 H 162 H 168 H Lactic Acid Calcium Magnesium Total Creatine Kinase Troponin T Albumin Triglycerides HDL Cholesterol 02/06/19 02/06/19 02/06/19 11:20 13:26 16:32 WBC RBC Hgb Hct MCV MCH MCHC RDW Lymph % (Auto) [place] % (Auto) Lymph # Jarod # Baso # Seg Neutrophils % Seg Neuts % (Manual) Nucleated RBC % Seg Neutrophils # POC ABG pH POC ABG pCO2 Sodium Potassium Chloride Carbon Dioxide BUN Creatinine 0.6 L Glucose 187 H POC Glucose 132 H 170 H Lactic Acid Calcium Magnesium 1.50 L Total Creatine Kinase Troponin T Albumin Triglycerides HDL Cholesterol 02/06/19 02/07/19 02/07/19 21:15 07:36 11:26 WBC RBC Hgb Hct MCV MCH MCHC RDW Lymph % (Auto) [place] % (Auto) Lymph # [place] # Baso # Seg Neutrophils % Seg Neuts % (Manual) Nucleated RBC % Seg Neutrophils # POC ABG pH POC ABG pCO2 Sodium Potassium Chloride Carbon Dioxide BUN Creatinine Glucose POC Glucose 153 H 178 H 190 H Lactic Acid Calcium Magnesium Total Creatine Kinase Troponin T Albumin Triglycerides HDL Cholesterol 02/07/19 02/07/19 02/08/19 16:39 21:12 06:33 WBC RBC Hgb Hct MCV MCH MCHC RDW Lymph % (Auto) [place] % (Auto) Lymph # [place] # Baso # Seg Neutrophils % Seg Neuts % (Manual) Nucleated RBC % Seg Neutrophils # POC ABG pH POC ABG pCO2 Sodium Potassium Chloride Carbon Dioxide BUN Creatinine Glucose POC Glucose 160 H 140 H 108 H Lactic Acid Calcium Magnesium Total Creatine Kinase Troponin T Albumin Triglycerides HDL Cholesterol
[2019-02-08] MEDS ORDERED: NACL 0.9% 1000 ML 1,000 ML IV SCH (09:00)
[2019-02-08] MEDS ORDERED: GENTAMICIN 120 MG in NACL 0.9% 100 ML IV SCH (11:30)
[2019-02-08] MEDS ORDERED: CLEOCIN 600 MG/50 mL 600 MG/50 ML BAG IV NR (11:30)
[2019-02-08] MEDS ORDERED: GENTAMICIN/NS 120MG/100ML 120 MG/100 ML BAG IV SCH (12:00)
[2019-02-08] MEDS ORDERED: D50W (25GM) Syringe IV ONE (12:27)
--- NOTE | 2019-02-08 12:29 | Anesthesia Day of Surgery ---
Anesthesia Day of Surgery - Day of Surgery Patient Examined: Yes Patient H&P Reviewed: Yes Patient is NPO: Yes
[2019-02-08] MEDS ORDERED: WATER FOR IRRIG STERILE IR ONE (12:30)
--- NOTE | 2019-02-08 12:34 | Anesthesia Consultation ---
Anesthesia Consult and Med Hx Date of service: 02/08/19 - Airway Intubation Access Assessment: Probably Good (UNABLE TO ASSESS AIRWAY. PT NONCOOPERATIVE) - Pre-Operative Health Status ASA Pre-Surgery Classification: ASA4 Proposed Anesthetic Plan: General, MAC - Pulmonary COPD: Yes - Cardiovascular System Hx Hypertension: Yes - Central Nervous System CVA: Yes ([employer] [employer] Shunt) Hx Psychiatric Problems: Yes (Schizophrenia. Dementia. Depression) - Endocrine Hx Non-Insulin Dependent Diabetes: Yes
[2019-02-08] MEDS ORDERED: DIPRIVAN 10 MG/ML IV ONE (12:35)
--- NOTE | 2019-02-08 13:10 | Operative Report ---
Operative Report Operative Report: DATE OF SERVICE: 02/08/19 SURGEON: Lux Ramsey MD EGD WITH biopsy PEG TUBE PLACEMENT REPORT PREOPERATIVE DIAGNOSIS and POSTOPERATIVE DIAGNOSIS: Dysphagia, gastric ulcer ESTIMATED BLOOD LOSS: minimal DESCRIPTION OF PROCEDURE: A high-resolution EGD scope was passed through the oropharynx, esophagus, stomach, and second portion of duodenum. The scope was carefully withdrawn. Retroflexion was performed in the stomach. At the end of the procedure, the scope was cleaned using normal technique. Vital signs monitored continuously throughout. The stomach was transilluminated and an optimal position for the PEG tube was identified using the single poke method. The skin was infiltrated with local anesthesia and the needle and sheath were inserted through the abdomen into the stomach under direct visualization. The needle was removed and a guidewire was inserted through the sheath. The guidewire was grasped from above with a snare. It was removed completely and the PEG tube was secured to the guidewire. The guidewire and PEG tube were then pulled through the mouth and esophagus and snug to the abdominal wall. There was no evidence of bleeding. The Bolster was placed on the PEG site. SEDATION: Provided by Anesthesiology Services. Meds - pre-op antibiotics given (ordered clinda 900mg IV x 1, gent was given as well) COMPLICATIONS: None. FINDINGS: * Normal duodenum * Large cratered gastric ulcer on the incisura, about 1.2cm in length and 5mm in diameter at the widest point. Biopsies were taken to rule out H. Pylori infection. A total of 6 biopsies were taken, 2 from the antrum, 1 from the incisura, 2 from the body. Additional biopsies taken from the edges of the u lcer to rule out malignancy * Smaller second superficial ulcer near the large ulcer, also at the incisura * Healed scar from prior G tube placement seen * GE junction at 39cm from the incisors * Moderate LA grade C reflux esophagitis in the distal esophagus * Remainder of the exam was normal Recommendations: * May use PEG for meds/water flushes immediately * If no erythema/pain at the G tube site then may use for feeds tomorrow * Regarding ulcer, f/u path, I added PPI to patient's current meds
[2019-02-08] MEDS ORDERED: PREVACID SOLUTAB FEEDTUBE SCH (14:00)
--- NOTE | 2019-02-08 14:41 | Progress Note ---
Assessment and Plan Assessment and plan: Patient is 53 yo male with hypertension, previous stroke, diabetes, BPH, resident of [facility] sent in for altered mental status and poor po intake.Patient has CVA --hence institutionalized at a young age.As per Nursing staff patient normally talkative till 3 days prior to admisson .Now lethargic and grunts when asked questions. No fever or chills.Very poor po intake. He was admitted. CT head unremarkable. Could not do MRI Brain because previous shunt. CT Head with contrast did not show new stroke. He remained lethargic, dysphagia with Dobhoff tube so PEG placed today 02/08/19, to start PEG tube feeds tomorrow 02/09/19. May dc back to [place] when tolerating tube feeds. Metabolic encephalopathy. Patient remains confused requiring restraints. Neurology following. Head CT negative. Cannot obtain MRI Brain because of shunt. CT head with contrast unremarkable Hypernatremia. Now resolved. Acute renal failure/MYRTLE. Resolved Dysphagia, Spoke to mother Di Syed, about PEG tube placement and she is agreeable. s/p PEG tube placement today. to start tube feeding tomorrow Hyperlipidemia. Continue statins. Hypokalemia. Replete potassium as needed. Hypertension. Continue antihypertensive medications. Diabetes mellitus type 2. Continue Accu-Cheks qac hs, Sliding scale regular insulin and Lantus Patient does not have sepsis. History Interval history: Altered mental status Dysphagia s/p PEG tube today Hospitalist Physical - Physical exam Narrative exam: Gen: Not in acute distress, lying in bed HEENT: Normocephalic, atraumatic Neck: supple, no JVD Heart: S1 and S2 reg, no murmurs, rubs or gallop Lungs: Clear, no crackles Abd: soft, non tender, non distended, normal BS,. PEG tube Ext: No edema, no clubbing, no cyanosis, Neuro: Lethargic - Constitutional Vitals: Temp Pulse Resp BP Pulse Ox 98.7 F 97 H 18 153/100 100 02/08/19 14:08 02/08/19 14:08 02/08/19 14:08 02/08/19 14:08 02/08/19 14:08 General appearance: Present: no acute distress Results - Labs CBC & Chem 7: 02/03/19 07:00 02/06/19 13:26 Labs: Laboratory Last Values WBC 6.2 K/mm3 (4.5-11.0) 02/03/19 07:00 RBC 3.91 M/mm3 (3.65-5.03) 02/03/19 07:00 Hgb 9.7 gm/dl (11.8-15.2) L 02/03/19 07:00 Hct 29.7 % (35.5-45.6) L 02/03/19 07:00 MCV 76 fl (84-94) L 02/03/19 07:00 MCH 25 pg (28-32) L 02/03/19 07:00 MCHC 33 % (32-34) 02/03/19 07:00 RDW 17.0 % (13.2-15.2) H 02/03/19 07:00 Plt Count 195 K/mm3 (140-440) 02/03/19 07:00 Lymph % (Auto) 19.1 % (13.4-35.0) 01/28/19 06:04 [place] % (Auto) 8.7 % (0.0-7.3) H 01/28/19 06:04 Eos % (Auto) 3.1 % (0.0-4.3) 01/28/19 06:04 Baso % (Auto) 0.3 % (0.0-1.8) 01/28/19 06:04 Lymph # 1.3 K/mm3 (1.2-5.4) 01/28/19 06:04 [place] # 0.6 K/mm3 (0.0-0.8) 01/28/19 06:04 Eos # 0.2 K/mm3 (0.0-0.4) 01/28/19 06:04 Baso # 0.0 K/mm3 (0.0-0.1) 01/28/19 06:04 Add Manual Diff Complete 02/01/19 03:50 Total Counted 100 02/01/19 03:50 Seg Neutrophils % 68.8 % (40.0-70.0) 01/28/19 06:04 Seg Neuts % (Manual) 78.0 % (40.0-70.0) H 02/01/19 03:50 1.0 % 02/01/19 03:50 16.0 % (13.4-35.0) 02/01/19 03:50 Reactive Lymphs % (Man) 0 % 02/01/19 03:50 1.0 % (0.0-7.3) 02/01/19 03:50 4.0 % (0.0-4.3) 02/01/19 03:50 0 % (0.0-1.8) 02/01/19 03:50 0 % 02/01/19 03:50 0 % 02/01/19 03:50 0 % 02/01/19 03:50 0 % 02/01/19 03:50 Nucleated RBC % Not Reportable 02/01/19 03:50 Seg Neutrophils # 4.8 K/mm3 (1.8-7.7) 01/28/19 06:04 Seg Neutrophils # Man 6.4 K/mm3 (1.8-7.7) 02/01/19 03:50 Band Neutrophils # 0.1 K/mm3 02/01/19 03:50 1.3 K/mm3 (1.2-5.4) 02/01/19 03:50 Abs React Lymphs (Man) 0.0 K/mm3 02/01/19 03:50 0.1 K/mm3 (0.0-0.8) 02/01/19 03:50 0.3 K/mm3 (0.0-0.4) 02/01/19 03:50 0.0 K/mm3 (0.0-0.1) 02/01/19 03:50 0.0 K/mm3 02/01/19 03:50 0.0 K/mm3 02/01/19 03:50 0.0 K/mm3 02/01/19 03:50 Blast Cells # 0.0 K/mm3 02/01/19 03:50 WBC Morphology Not Reportable 02/01/19 03:50 Hypersegmented Neuts Not Reportable 02/01/19 03:50 Hyposegmented Neuts Not Reportable 02/01/19 03:50 Hypogranular Neuts Not Reportable 02/01/19 03:50 Not Reportable 02/01/19 03:50 Not Reportable 02/01/19 03:50 Not Reportable 02/01/19 03:50 Not Reportable 02/01/19 03:50 Not Reportable 02/01/19 03:50 Not Reportable 02/01/19 03:50 Appears normal 02/01/19 03:50 Not Reportable 02/01/19 03:50 Plt Clumps, EDTA Not Reportable 02/01/19 03:50 Not Reportable 02/01/19 03:50 Not Reportable 02/01/19 03:50 Not Reportable 02/01/19 03:50 Plt Morphology Comment Not Reportable 02/01/19 03:50 RBC Morphology Not Reportable 02/01/19 03:50 Dimorphic RBCs Not Reportable 02/01/19 03:50 Not Reportable 02/01/19 03:50 1+ 02/01/19 03:50 Not Reportable 02/01/19 03:50 1+ 02/01/19 03:50 Not Reportable 02/01/19 03:50 Not Reportable 02/01/19 03:50 Not Reportable 02/01/19 03:50 Not Reportable 02/01/19 03:50 Not Reportable 02/01/19 03:50 Not Reportable 02/01/19 03:50 Not Reportable 02/01/19 03:50 Not Reportable 02/01/19 03:50 Not Reportable 02/01/19 03:50 Not Reportable 02/01/19 03:50 Not Reportable 02/01/19 03:50 Not Reportable 02/01/19 03:50 Not Reportable 02/01/19 03:50 Not Reportable 02/01/19 03:50 Not Reportable 02/01/19 03:50 Acanthocytes (Spur) Not Reportable 02/01/19 03:50 Rouleaux Not Reportable 02/01/19 03:50 Not Reportable 02/01/19 03:50 Not Reportable 02/01/19 03:50 Not Reportable 02/01/19 03:50 Not Reportable 02/01/19 03:50 Hem Pathologist Commnt No 02/01/19 03:50 PT 12.8 Sec. (12.2-14.9) 02/04/19 15:38 INR 0.91 (0.87-1.13) 02/04/19 15:38 POC ABG pH 7.479 (7.35-7.45) H 01/28/19 19:00 POC ABG pCO2 32.3 (35-45) L 01/28/19 19:00 POC ABG pO2 93 (80-105) 01/28/19 19:00 POC ABG HCO3 24.0 (22-26 mml/L) 01/28/19 19:00 POC ABG Total CO2 25 (23-27mmol/L) 01/28/19 19:00 POC ABG O2 Sat 98 01/28/19 19:00 POC ABG Base Excess 0 ((-2) - (+3)mmol/L) 01/28/19 19:00 21 % 01/28/19 19:00 Sodium 139 mmol/L (137-145) 02/06/19 13:26 Potassium 4.2 mmol/L (3.6-5.0) 02/06/19 13:26 Chloride 99.8 mmol/L (98-107) 02/06/19 13:26 Carbon Dioxide 29 mmol/L (22-30) 02/06/19 13:26 14 mmol/L 02/06/19 13:26 BUN 13 mg/dL (9-20) 02/06/19 13:26 0.6 mg/dL (0.8-1.5) L 02/06/19 13:26 Estimated GFR > 60 ml/min 02/06/19 13:26 22 % 02/06/19 13:26 Glucose 187 mg/dL (75-100) H 02/06/19 13:26 POC Glucose 101 (70-105) 02/08/19 13:37 Lactic Acid 1.40 mmol/L (0.7-2.0) 01/25/19 18:50 Calcium 8.7 mg/dL (8.4-10.2) 02/06/19 13:26 Magnesium 1.50 mg/dL (1.7-2.3) L 02/06/19 13:26 0.20 mg/dL (0.1-1.2) 01/26/19 04:25 AST 12 units/L (5-40) 01/26/19 04:25 ALT 17 units/L (7-56) 01/26/19 04:25 84 units/L (35-129) 01/26/19 04:25 41.0 umol/L (25-60) 01/31/19 13:26 294 units/L (55-170) H 01/25/19 13:31 CK-MB (CK-2) 2.2 ng/mL (0.0-4.0) 01/25/19 13:31 CK-MB (CK-2) Rel Index 0.7 (0-4) 01/25/19 13:31 0.031 ng/mL (0.00-0.029) H D 01/26/19 04:25 6.4 g/dL (6.3-8.2) 01/26/19 04:25 2.3 g/dL (3.9-5) L 01/26/19 04:25 0.6 % 01/26/19 04:25 Triglycerides 172 mg/dL (2-149) H 01/25/19 13:31 Cholesterol 148 mg/dL (50-199) 01/25/19 13:31 82 mg/dL (50-130) 01/25/19 13:31 30 mg/dL (40-59) L 01/25/19 13:31 4.93 % 01/25/19 13:31 TSH 4.020 mlU/mL (0.270-4.200) 01/25/19 13:31 Free T4 0.89 ng/dL (0.76-1.46) 01/25/19 13:31 Yellow (Yellow) 01/25/19 15:00 Slightly-cloudy (Clear) 01/25/19 15:00 5.0 (5.0-7.0) 01/25/19 15:00 Ur Specific [place] 1.018 (1.003-1.030) 01/25/19 15:00 <15 mg/dl mg/dL (Negative) 01/25/19 15:00 50 mg/dL (Negative) 01/25/19 15:00 Neg mg/dL (Negative) 01/25/19 15:00 Neg (Negative) 01/25/19 15:00 Neg (Negative) 01/25/19 15:00 Neg (Negative) 01/25/19 15:00 4.0 mg/dL (<2.0) 01/25/19 15:00 Ur Leukocyte Esterase Neg (Negative) 01/25/19 15:00 3.0 /HPF (0.0-6.0) 01/25/19 15:00 1.0 /HPF (0.0-6.0) 01/25/19 15:00 U Epithel Cells (Auto) < 1.0 /HPF (0-13.0) 01/25/19 15:00 Hyaline Casts 9 /LPF 01/25/19 15:00 Active Medications - Current Medications Current Medications: Generic Name Dose Route Start Last Admin Trade Name Freq PRN Reason Stop Dose Admin Lipase/Protease/Amylase 1 each 01/26/19 11:47 Pancreaze 10,500 Unit FEEDTUBE PRN PRN For Clogged Feeding Tube Heparin Sodium (Porcine) 5,000 unit 01/25/19 22:00 02/07/19 22:42 Heparin SUB-Q 5,000 unit Q12HR NIKOLAS Administration Hydralazine HCl 10 mg 02/03/19 22:00 Apresoline IV Q8HR PRN Hypertension Sodium Chloride 1,000 mls @ 50 mls/hr 02/08/19 09:00 Nacl 0.9% 1000 Ml IV DIRECT NIKOLAS Clindamycin HCl 600 mg in 50 mls @ 100 mls/hr 02/08/19 11:30 Cleocin 600 Mg/50 Ml IV 02/08/19 16:00 PREOP NR Protocol Gentamicin Sulfate/Sodium Chloride 120 mg in 100 mls @ 200 mls/hr 02/08/19 12:00 Garamycin/Ns 120mg/100ml IV 02/08/19 16:00 PREOP NIKOLAS Insulin Glargine 45 units 01/29/19 22:00 02/07/19 22:42 Lantus SUB-Q 45 units QHS NIKOLAS Administration Insulin Human Lispro 0 unit 02/05/19 07:30 02/08/19 12:00 Humalog SUB-Q Not Given ACHS NIKOLAS Protocol Lansoprazole 30 mg 02/08/19 14:00 Prevacid Solutab FEEDTUBE QDAY NIKOLAS Simple Syrup 15 ml 01/26/19 11:47 Simple Syrup FEEDTUBE PRN PRN Hypoglycemia Simple Syrup 30 ml 01/26/19 11:47 Simple Syrup FEEDTUBE PRN PRN Hypoglycemia Sodium Bicarbonate 325 mg 01/26/19 11:47 Sodium Bicarbonate FEEDTUBE PRN PRN For Clogged Feeding Tube Sodium Chloride 10 ml 01/25/19 22:00 02/07/19 22:42 Sodium Chloride Flush Syringe 10 Ml IV 10 ml BID NIKOLAS Administration Sodium Chloride 10 ml 01/25/19 17:46 Sodium Chloride Flush Syringe 10 Ml IV PRN PRN LINE FLUSH Nutrition/Malnutrition Assess - Dietary Evaluation Nutrition/Malnutrition Findings: Nutrition Notes Start: 01/26/19 08:45 Freq: Status: Active Protocol: Document 02/04/19 15:20 RM (Rec: 02/04/19 15:28 RM [id number]) Nutrition Notes Initial or Follow up Reassessment Current Diagnosis Acute Kidney Injury, Hypertension Other Pertinent Diagnosis Hyperkalemia, Acute encephalopathy, Dehydration, Multiple PUs Current Diet Nepo 1.8 at 50 ml/hr Labs/Tests Reviewed Pertinent Medications Reviewed Height 5 ft 6 in Weight 72.5 kg [place] Body Weight (kg) 64.54 BMI 25.7 Subjective/Other Information Observed Nepro infusing at 50 ml/hr. Per nurse pt is tolerating TF. Percent of energy/protein needs met: 100%/100% Burn Absent Trauma Absent #1 Nutrition Diagnosis Inadequate oral intake Diagnosis Progress(for reassessment Continues documentation) Is patient on ventilator? No Is Patient Ambulatory and/or Out of Bed No REE-(Lyman-St. Jeor-confined to bed) 5890.257 Calculation Used for Recommendations Lyman-St Jeor Additional Notes PRO: 1.0-1.3 g/kg (75-98 g/day ) Fluid: 1500 mL or per MD Nutrition Intervention Nutrition Support: Glucerna 1.2 at 60 ml/hr. Water flush of 100 mls q 4 hrs . Kcal 1,728 Protein (gm) 86 Fluid (mL) 1,159 Goal #1 TF tolerance Goal #2 Meet at least 75% of calorie and protein needs via TF Anticipated Discharge Needs: Unable to determine at this time Follow-Up By: 02/08/19 Additional Comments Follow for new TF
[2019-02-08] MEDS ORDERED: NACL 0.9% 1000 ML 1,000 ML ONE (14:58)
[2019-02-08] MEDS: HEPARIN SUB-Q SCH ×2 (15:27→22:48)
[2019-02-08] MEDS: SODIUM CHLORIDE FLUSH SYRINGE 10 ML IV SCH ×2 (15:32→22:51)
[2019-02-08] MEDS ORDERED: MAGNESIUM SULFATE 2GM/50ML 2 GM/50 ML BAG IV ONE (16:29)
[2019-02-08] MEDS: D5/0.45NS 1,000 ML IV SCH (16:58)
--- NOTE | 2019-02-08 19:15 | Progress Note ---
Assessment and Plan Patient sleeping and resting on room air. O2 saturation 100%.No acute respiratory distress.No change in general condition. - Patient Problems (1) Metabolic acidosis with increased anion gap and reduced excretion of inorganic acids Current Visit: Yes Status: Acute Plan to address problem: ABGs showed improvement in Acidosis. (2) IDDM (insulin dependent diabetes mellitus) Current Visit: Yes Status: Chronic Plan to address problem: Management as per primary care. (3) HTN (hypertension) Current Visit: Yes Status: Chronic Qualifiers: Hypertension type: essential hypertension Qualified Code(s): I10 - Essenti al (primary) hypertension Plan to address problem: Management as per primary care. (4) Acute metabolic encephalopathy Current Visit: Yes Status: Acute Plan to address problem: Management as per primary care. (5) MYRTLE (acute kidney injury) Current Visit: Yes Status: Acute Plan to address problem: Management as per Nephrology. Subjective Date of service: 02/08/19 Principal diagnosis: Ac. Encephalopathy; MYRTLE; Hypernatremia; Hyperkalemia; IDDM Interval history: Patient sleeping and resting on room air. O2 saturation 100%.No acute respiratory distress.No change in general condition. Objective Vital Signs - 12hr 02/08/19 02/08/19 02/08/19 11:30 13:06 13:21 Temperature 98.7 F 98 F Pulse Rate 97 H 100 H 95 H Respiratory 18 23 17 Rate Blood Pressure 153/100 140/89 148/92 Blood Pressure [Left] O2 Sat by Pulse 100 97 100 Oximetry 02/08/19 02/08/19 02/08/19 13:36 14:08 15:27 Temperature 98.7 F Pulse Rate 101 H 97 H 95 H Respiratory 19 18 Rate Blood Pressure 153/94 153/100 Blood Pressure 144/100 [Left] O2 Sat by Pulse 100 100 Oximetry Constitutional: no acute distress, other (somnolent, not following commands) Eyes: non-icteric ENT: oropharynx moist Neck: supple, no lymphadenopathy, no JVD, other (no thyromegaly) Effort: normal Ascultation: Bilateral: diminished breath sounds, rhonchi Percussion: Bilateral: not dull Cardiovascular: regular rate and rhythm Gastrointestinal: normoactive bowel sounds, soft, non-tender, non-distended Integumentary: normal Extremities: no cyanosis, no edema, pulses normal, no ischemia or petechiae Neurologic: pupils equal and round, other (hemiparesis, somnolent to lethargic) Psychiatric: other (Can Not asses due to his mental status.) CBC and BMP: 02/03/19 07:00 02/06/19 13:26 ABG, PT/INR, D-dimer: ABG POC ABG pH 7.479 (7.35-7.45) H 01/28/19 19:00 POC ABG pCO2 32.3 (35-45) L 01/28/19 19:00 POC ABG pO2 93 (80-105) 01/28/19 19:00 POC ABG HCO3 24.0 (22-26 mml/L) 01/28/19 19:00 POC ABG Total CO2 25 (23-27mmol/L) 01/28/19 19:00 POC ABG O2 Sat 98 01/28/19 19:00 PT/INR, D-dimer PT 12.8 Sec. (12.2-14.9) 02/04/19 15:38 INR 0.91 (0.87-1.13) 02/04/19 15:38 Abnormal lab findings: Abnormal Labs 01/25/19 01/25/19 01/25/19 13:31 13:31 13:31 WBC 12.0 H RBC 6.00 H Hgb Hct 47.7 H MCV 80 L MCH 25 L MCHC 31 L RDW 18.1 H Lymph % (Auto) 10.4 L Daniels % (Auto) 9.3 H Lymph # Daniels # 1.1 H Baso # Seg Neutrophils % 78.5 H Seg Neuts % (Manual) Nucleated RBC % Seg Neutrophils # 9.5 H POC ABG pH POC ABG pCO2 Sodium 159 H Potassium 6.0 H Chloride 119.0 H Carbon Dioxide BUN 185 H Creatinine 5.7 H D Glucose 433 H POC Glucose Lactic Acid 2.60 H* Calcium Magnesium Total Creatine Kinase 294 H Troponin T 0.080 H Albumin 2.6 L Triglycerides 172 H HDL Cholesterol 30 L 01/25/19 01/25/19 01/25/19 16:03 16:03 17:11 WBC RBC Hgb Hct MCV MCH MCHC RDW Lymph % (Auto) Daniels % (Auto) Lymph # Daniels # Baso # Seg Neutrophils % Seg Neuts % (Manual) Nucleated RBC % Seg Neutrophils # POC ABG pH POC ABG pCO2 Sodium Potassium Chloride Carbon Dioxide BUN Creatinine Glucose POC Glucose 346 H Lactic Acid 2.20 H* 2.30 H* Calcium Magnesium Total Creatine Kinase Troponin T Albumin Triglycerides HDL Cholesterol 01/25/19 01/25/19 01/26/19 18:50 23:08 00:22 WBC RBC Hgb Hct MCV MCH MCHC RDW Lymph % (Auto) Daniels % (Auto) Lymph # Daniels # Baso # Seg Neutrophils % Seg Neuts % (Manual) Nucleated RBC % Seg Neutrophils # POC ABG pH POC ABG pCO2 Sodium 162 H* Potassium Chloride 125.2 H Carbon Dioxide BUN 180 H Creatinine 5.1 H Glucose 438 H POC Glucose 480 H Lactic Acid Calcium Magnesium Total Creatine Kinase Troponin T 0.045 H D Albumin Triglycerides HDL Cholesterol 01/26/19 01/26/19 01/26/19 02:16 04:25 04:25 WBC RBC 5.21 H Hgb Hct MCV 80 L MCH 25 L MCHC 31 L RDW 18.0 H Lymph % (Auto) 8.2 L Daniels % (Auto) 7.6 H Lymph # 0.8 L Daniels # Baso # 0.2 H Seg Neutrophils % 81.6 H Seg Neuts % (Manual) Nucleated RBC % Seg Neutrophils # 8.3 H POC ABG pH POC ABG pCO2 Sodium 158 H Potassium Chloride 122.9 H Carbon Dioxide 21 L BUN 163 H Creatinine 3.9 H Glucose 465 H POC Glucose 462 H Lactic Acid Calcium 7.8 L Magnesium Total Creatine Kinase Troponin T Albumin 2.3 L Triglycerides HDL Cholesterol 01/26/19 01/26/19 01/26/19 04:25 05:33 10:08 WBC RBC Hgb Hct MCV MCH MCHC RDW Lymph % (Auto) Daniels % (Auto) Lymph # Daniels # Baso # Seg Neutrophils % Seg Neuts % (Manual) Nucleated RBC % Seg Neutrophils # POC ABG pH POC ABG pCO2 Sodium 160 H Potassium Chloride 123.9 H Carbon Dioxide 19 L BUN 161 H Creatinine 3.9 H Glucose 468 H POC Glucose 309 H 316 H Lactic Acid Calcium 7.8 L Magnesium Total Creatine Kinase Troponin T 0.031 H D Albumin Triglycerides HDL Cholesterol 01/26/19 01/26/19 01/27/19 14:30 16:11 03:18 WBC RBC Hgb Hct MCV MCH MCHC RDW Lymph % (Auto) Daniels % (Auto) Lymph # Daniels # Baso # Seg Neutrophils % Seg Neuts % (Manual) Nucleated RBC % Seg Neutrophils # POC ABG pH POC ABG pCO2 Sodium 160 H Potassium 3.4 L D Chloride 124.8 H Carbon Dioxide BUN 141 H Creatinine 2.9 H Glucose 126 H POC Glucose 167 H 184 H Lactic Acid Calcium 8.3 L Magnesium Total Creatine Kinase Troponin T Albumin Triglycerides HDL Cholesterol 01/27/19 01/27/19 01/27/19 06:23 06:33 06:33 WBC RBC Hgb Hct MCV 79 L MCH 25 L MCHC 31 L RDW 17.7 H Lymph % (Auto) Daniels % (Auto) 8.1 H Lymph # Daniels # Baso # Seg Neutrophils % 71.1 H Seg Neuts % (Manual) Nucleated RBC % Seg Neutrophils # POC ABG pH POC ABG pCO2 Sodium 157 H Potassium Chloride 121.4 H Carbon Dioxide BUN 117 H Creatinine 1.9 H Glucose 200 H POC Glucose 219 H Lactic Acid Calcium 8.3 L Magnesium Total Creatine Kinase Troponin T Albumin Triglycerides HDL Cholesterol 01/27/19 01/27/19 01/27/19 11:13 12:46 16:10 WBC RBC Hgb Hct MCV MCH MCHC RDW Lymph % (Auto) Daniels % (Auto) Lymph # Daniels # Baso # Seg Neutrophils % Seg Neuts % (Manual) Nucleated RBC % Seg Neutrophils # POC ABG pH POC ABG pCO2 Sodium Potassium Chloride Carbon Dioxide BUN Creatinine Glucose POC Glucose 200 H 205 H 230 H Lactic Acid Calcium Magnesium Total Creatine Kinase Troponin T Albumin Triglycerides HDL Cholesterol 01/28/19 01/28/19 01/28/19 00:09 06:04 06:04 WBC RBC Hgb 11.5 L Hct MCV 77 L MCH 25 L MCHC RDW 17.4 H Lymph % (Auto) Daniels % (Auto) 8.7 H Lymph # Daniels # Baso # Seg Neutrophils % Seg Neuts % (Manual) Nucleated RBC % Seg Neutrophils # POC ABG pH POC ABG pCO2 Sodium 159 H Potassium 3.3 L Chloride 123.1 H Carbon Dioxide BUN 75 H Creatinine Glucose 310 H POC Glucose 177 H Lactic Acid Calcium Magnesium Total Creatine Kinase Troponin T Albumin Triglycerides HDL Cholesterol 01/28/19 01/28/19 01/28/19 06:42 12:28 15:10 WBC RBC Hgb Hct MCV MCH MCHC RDW Lymph % (Auto) Daniels % (Auto) Lymph # Daniels # Baso # Seg Neutrophils % Seg Neuts % (Manual) Nucleated RBC % Seg Neutrophils # POC ABG pH POC ABG pCO2 Sodium Potassium Chloride Carbon Dioxide BUN Creatinine Glucose POC Glucose 384 H 280 H 282 H Lactic Acid Calcium Magnesium Total Creatine Kinase Troponin T Albumin Triglycerides HDL Cholesterol 01/28/19 01/28/19 01/28/19 18:54 19:00 21:44 WBC RBC Hgb Hct MCV MCH MCHC RDW Lymph % (Auto) Daniels % (Auto) Lymph # Daniels # Baso # Seg Neutrophils % Seg Neuts % (Manual) Nucleated RBC % Seg Neutrophils # POC ABG pH 7.479 H POC ABG pCO2 32.3 L Sodium Potassium Chloride Carbon Dioxide BUN Creatinine Glucose POC Glucose 189 H 179 H Lactic Acid Calcium Magnesium Total Creatine Kinase Troponin T Albumin Triglycerides HDL Cholesterol 01/29/19 01/29/19 01/29/19 01:48 04:37 05:38 WBC RBC Hgb Hct MCV MCH MCHC RDW Lymph % (Auto) Daniels % (Auto) Lymph # Jarod # [place] # Seg Neutrophils % Seg Neuts % (Manual) Nucleated RBC % Seg Neutrophils # POC ABG pH POC ABG pCO2 Sodium 164 H* Potassium 3.5 L Chloride 128.9 H Carbon Dioxide BUN 54 H Creatinine Glucose 271 H POC Glucose 238 H 248 H Lactic Acid Calcium Magnesium Total Creatine Kinase Troponin T Albumin Triglycerides HDL Cholesterol 01/29/19 01/29/19 01/29/19 10:26 13:19 17:57 WBC RBC Hgb Hct MCV MCH MCHC RDW Lymph % (Auto) Daniels % (Auto) Lymph # Jarod # [place] # Seg Neutrophils % Seg Neuts % (Manual) Nucleated RBC % Seg Neutrophils # POC ABG pH POC ABG pCO2 Sodium Potassium Chloride Carbon Dioxide BUN Creatinine Glucose POC Glucose 288 H 301 H 242 H Lactic Acid Calcium Magnesium Total Creatine Kinase Troponin T Albumin Triglycerides HDL Cholesterol 01/29/19 01/30/19 01/30/19 20:25 01:51 05:23 WBC RBC Hgb Hct MCV MCH MCHC RDW Lymph % (Auto) Daniels % (Auto) Lymph # Daniels # Baso # Seg Neutrophils % Seg Neuts % (Manual) Nucleated RBC % Seg Neutrophils # POC ABG pH POC ABG pCO2 Sodium Potassium Chloride Carbon Dioxide BUN Creatinine Glucose POC Glucose 223 H 229 H 218 H Lactic Acid Calcium Magnesium Total Creatine Kinase Troponin T Albumin Triglycerides HDL Cholesterol 01/30/19 01/30/19 01/30/19 07:16 10:26 14:24 WBC RBC Hgb Hct MCV MCH MCHC RDW Lymph % (Auto) Daniels % (Auto) Lymph # Daniels # Baso # Seg Neutrophils % Seg Neuts % (Manual) Nucleated RBC % Seg Neutrophils # POC ABG pH POC ABG pCO2 Sodium 155 H D Potassium 3.2 L Chloride 118.4 H Carbon Dioxide BUN 40 H Creatinine Glucose 246 H POC Glucose 257 H 240 H Lactic Acid Calcium 8.3 L Magnesium Total Creatine Kinase Troponin T Albumin Triglycerides HDL Cholesterol 01/30/19 01/30/19 01/30/19 18:30 20:44 23:38 WBC RBC Hgb Hct MCV MCH MCHC RDW Lymph % (Auto) Daniels % (Auto) Lymph # Daniels # Baso # Seg Neutrophils % Seg Neuts % (Manual) Nucleated RBC % Seg Neutrophils # POC ABG pH POC ABG pCO2 Sodium Potassium Chloride Carbon Dioxide BUN Creatinine Glucose POC Glucose 327 H 300 H 279 H Lactic Acid Calcium Magnesium Total Creatine Kinase Troponin T Albumin Triglycerides HDL Cholesterol 01/31/19 01/31/19 01/31/19 01:57 04:42 04:42 WBC RBC Hgb 10.1 L Hct 31.7 L MCV 79 L MCH 25 L MCHC RDW 17.4 H Lymph % (Auto) Daniels % (Auto) Lymph # Daniels # Baso # Seg Neutrophils % Seg Neuts % (Manual) 75.0 H Nucleated RBC % 2.0 H Seg Neutrophils # POC ABG pH POC ABG pCO2 Sodium 147 H D Potassium 3.2 L Chloride 110.0 H Carbon Dioxide BUN 28 H Creatinine Glucose 261 H POC Glucose 270 H Lactic Acid Calcium 7.8 L Magnesium Total Creatine Kinase Troponin T Albumin Triglycerides HDL Cholesterol 01/31/19 01/31/19 01/31/19 05:10 08:46 17:10 WBC RBC Hgb Hct MCV MCH MCHC RDW Lymph % (Auto) Daniels % (Auto) Lymph # Daniels # Baso # Seg Neutrophils % Seg Neuts % (Manual) Nucleated RBC % Seg Neutrophils # POC ABG pH POC ABG pCO2 Sodium Potassium Chloride Carbon Dioxide BUN Creatinine Glucose POC Glucose 239 H 242 H 298 H Lactic Acid Calcium Magnesium Total Creatine Kinase Troponin T Albumin Triglycerides HDL Cholesterol 01/31/19 02/01/19 02/01/19 21:10 02:17 03:50 WBC RBC Hgb Hct MCV MCH MCHC RDW Lymph % (Auto) Daniels % (Auto) Lymph # Daniels # Baso # Seg Neutrophils % Seg Neuts % (Manual) Nucleated RBC % Seg Neutrophils # POC ABG pH POC ABG pCO2 Sodium 146 H Potassium Chloride 110.9 H Carbon Dioxide 21 L BUN 26 H Creatinine 0.7 L Glucose 240 H POC Glucose 304 H 240 H Lactic Acid Calcium 8.3 L Magnesium Total Creatine Kinase Troponin T Albumin Triglycerides HDL Cholesterol 02/01/19 02/01/19 02/01/19 03:50 05:35 10:11 WBC RBC Hgb 10.2 L Hct 31.4 L MCV 78 L MCH 25 L MCHC RDW 16.9 H Lymph % (Auto) Daniels % (Auto) Lymph # Daniels # Baso # Seg Neutrophils % Seg Neuts % (Manual) 78.0 H Nucleated RBC % Seg Neutrophils # POC ABG pH POC ABG pCO2 Sodium Potassium Chloride Carbon Dioxide BUN Creatinine Glucose POC Glucose 208 H 186 H Lactic Acid Calcium Magnesium Total Creatine Kinase Troponin T Albumin Triglycerides HDL Cholesterol 02/01/19 02/01/19 02/01/19 14:35 17:25 20:44 WBC RBC Hgb Hct MCV MCH MCHC RDW Lymph % (Auto) Daniels % (Auto) Lymph # Daniels # Baso # Seg Neutrophils % Seg Neuts % (Manual) Nucleated RBC % Seg Neutrophils # POC ABG pH POC ABG pCO2 Sodium Potassium Chloride Carbon Dioxide BUN Creatinine Glucose POC Glucose 222 H 193 H 204 H Lactic Acid Calcium Magnesium Total Creatine Kinase Troponin T Albumin Triglycerides HDL Cholesterol 02/02/19 02/02/19 02/02/19 07:17 07:26 12:11 WBC RBC Hgb Hct MCV MCH MCHC RDW Lymph % (Auto) Daniels % (Auto) Lymph # Daniels # Baso # Seg Neutrophils % Seg Neuts % (Manual) Nucleated RBC % Seg Neutrophils # POC ABG pH POC ABG pCO2 Sodium Potassium 3.3 L D Chloride 107.8 H Carbon Dioxide BUN Creatinine 0.6 L Glucose 117 H POC Glucose 110 H 115 H Lactic Acid Calcium 7.9 L Magnesium Total Creatine Kinase Troponin T Albumin Triglycerides HDL Cholesterol 02/02/19 02/02/19 02/02/19 16:10 18:30 18:50 WBC RBC Hgb Hct MCV MCH MCHC RDW Lymph % (Auto) Daniels % (Auto) Lymph # Daniels # Baso # Seg Neutrophils % Seg Neuts % (Manual) Nucleated RBC % Seg Neutrophils # POC ABG pH POC ABG pCO2 Sodium Potassium Chloride Carbon Dioxide BUN Creatinine Glucose POC Glucose 182 H 200 H 198 H Lactic Acid Calcium Magnesium Total Creatine Kinase Troponin T Albumin Triglycerides HDL Cholesterol 02/03/19 02/03/19 02/03/19 00:40 06:50 07:00 WBC RBC Hgb Hct MCV MCH MCHC RDW Lymph % (Auto) Daniels % (Auto) Lymph # Daniels # Baso # Seg Neutrophils % Seg Neuts % (Manual) Nucleated RBC % Seg Neutrophils # POC ABG pH POC ABG pCO2 Sodium Potassium Chloride Carbon Dioxide BUN Creatinine 0.6 L Glucose 268 H POC Glucose 212 H 260 H Lactic Acid Calcium 8.1 L Magnesium Total Creatine Kinase Troponin T Albumin Triglycerides HDL Cholesterol 02/03/19 02/03/19 02/03/19 07:00 08:23 12:49 WBC RBC Hgb 9.7 L Hct 29.7 L MCV 76 L MCH 25 L MCHC RDW 17.0 H Lymph % (Auto) Daniels % (Auto) Lymph # Jarod # Baso # Seg Neutrophils % Seg Neuts % (Manual) Nucleated RBC % Seg Neutrophils # POC ABG pH POC ABG pCO2 Sodium Potassium Chloride Carbon Dioxide BUN Creatinine Glucose POC Glucose 275 H 198 H Lactic Acid Calcium Magnesium Total Creatine Kinase Troponin T Albumin Triglycerides HDL Cholesterol 02/03/19 02/04/19 02/04/19 21:50 02:23 05:17 WBC RBC Hgb Hct MCV MCH MCHC RDW Lymph % (Auto) Daniels % (Auto) Lymph # Jarod # Baso # Seg Neutrophils % Seg Neuts % (Manual) Nucleated RBC % Seg Neutrophils # POC ABG pH POC ABG pCO2 Sodium Potassium Chloride Carbon Dioxide BUN Creatinine Glucose POC Glucose 153 H 139 H 180 H Lactic Acid Calcium Magnesium Total Creatine Kinase Troponin T Albumin Triglycerides HDL Cholesterol 02/04/19 02/04/19 02/04/19 09:47 14:40 18:03 WBC RBC Hgb Hct MCV MCH MCHC RDW Lymph % (Auto) Daniels % (Auto) Lymph # Daniels # Baso # Seg Neutrophils % Seg Neuts % (Manual) Nucleated RBC % Seg Neutrophils # POC ABG pH POC ABG pCO2 Sodium Potassium Chloride Carbon Dioxide BUN Creatinine Glucose POC Glucose 204 H 176 H 180 H Lactic Acid Calcium Magnesium Total Creatine Kinase Troponin T Albumin Triglycerides HDL Cholesterol 05/09/19 05/09/19 05/10/19 18:35 21:35 01:31 WBC RBC Hgb Hct MCV MCH MCHC RDW Lymph % (Auto) Daniels % (Auto) Lymph # Daniels # Baso # Seg Neutrophils % Seg Neuts % (Manual) Nucleated RBC % Seg Neutrophils # POC ABG pH POC ABG pCO2 Sodium Potassium Chloride Carbon Dioxide BUN Creatinine Glucose POC Glucose 146 H 118 H 154 H Lactic Acid Calcium Magnesium Total Creatine Kinase Troponin T Albumin Triglycerides HDL Cholesterol 02/05/19 02/05/19 02/05/19 05:56 07:58 12:16 WBC RBC Hgb Hct MCV MCH MCHC RDW Lymph % (Auto) Daniels % (Auto) Lymph # Daniels # Baso # Seg Neutrophils % Seg Neuts % (Manual) Nucleated RBC % Seg Neutrophils # POC ABG pH POC ABG pCO2 Sodium Potassium Chloride Carbon Dioxide BUN Creatinine Glucose POC Glucose 182 H 210 H 166 H Lactic Acid Calcium Magnesium Total Creatine Kinase Troponin T Albumin Triglycerides HDL Cholesterol 02/05/19 02/05/19 02/06/19 16:40 21:15 07:36 WBC RBC Hgb Hct MCV MCH MCHC RDW Lymph % (Auto) Daniels % (Auto) Lymph # Daniels # Baso # Seg Neutrophils % Seg Neuts % (Manual) Nucleated RBC % Seg Neutrophils # POC ABG pH POC ABG pCO2 Sodium Potassium Chloride Carbon Dioxide BUN Creatinine Glucose POC Glucose 119 H 162 H 168 H Lactic Acid Calcium Magnesium Total Creatine Kinase Troponin T Albumin Triglycerides HDL Cholesterol 02/06/19 02/06/19 02/06/19 11:20 13:26 16:32 WBC RBC Hgb Hct MCV MCH MCHC RDW Lymph % (Auto) Daniels % (Auto) Lymph # Daniels # Baso # Seg Neutrophils % Seg Neuts % (Manual) Nucleated RBC % Seg Neutrophils # POC ABG pH POC ABG pCO2 Sodium Potassium Chloride Carbon Dioxide BUN Creatinine 0.6 L Glucose 187 H POC Glucose 132 H 170 H Lactic Acid Calcium Magnesium 1.50 L Total Creatine Kinase Troponin T Albumin Triglycerides HDL Cholesterol 02/06/19 02/07/19 02/07/19 21:15 07:36 11:26 WBC RBC Hgb Hct MCV MCH MCHC RDW Lymph % (Auto) Daniels % (Auto) Lymph # Daniels # Baso # Seg Neutrophils % Seg Neuts % (Manual) Nucleated RBC % Seg Neutrophils # POC ABG pH POC ABG pCO2 Sodium Potassium Chloride Carbon Dioxide BUN Creatinine Glucose POC Glucose 153 H 178 H 190 H Lactic Acid Calcium Magnesium Total Creatine Kinase Troponin T Albumin Triglycerides HDL Cholesterol 02/07/19 02/07/19 02/08/19 16:39 21:12 06:33 WBC RBC Hgb Hct MCV MCH MCHC RDW Lymph % (Auto) Daniels % (Auto) Lymph # Daniels # Baso # Seg Neutrophils % Seg Neuts % (Manual) Nucleated RBC % Seg Neutrophils # POC ABG pH POC ABG pCO2 Sodium Potassium Chloride Carbon Dioxide BUN Creatinine Glucose POC Glucose 160 H 140 H 108 H Lactic Acid Calcium Magnesium Total Creatine Kinase Troponin T Albumin Triglycerides HDL Cholesterol Allied health notes reviewed: nursing
[2019-02-08] MEDS: LANTUS SUB-Q SCH ×2 (22:54→22:55)
[2019-02-09] MEDS: MORPHINE IV PRN ×2 (04:49→18:34)
[2019-02-09] MEDS: D5/0.45NS 1,000 ML IV SCH ×2 (06:26→18:28)
[2019-02-09 08:24] LABS: BUN/Creatinine Ratio 18; Blood Urea Nitrogen 11 mg/dL (9-20); Calcium 8.4 mg/dL (8.4-10.2); Hemolysis Index 5
[2019-02-09] MEDS: HumaLOG SUB-Q SCH ×4 (08:25→22:26)
[2019-02-09] MEDS ORDERED: SIMPLE SYRUP FEEDTUBE PRN ×2 (09:46)
[2019-02-09] MEDS ORDERED: SODIUM BICARBONATE FEEDTUBE PRN (09:46)
[2019-02-09] MEDS ORDERED: PANCREAZE DR 10,500 UNIT FEEDTUBE PRN (09:46)
--- NOTE | 2019-02-09 10:18 | Progress Note ---
Assessment and Plan Assessment and plan: Metabolic encephalopathy. Patient remains confused requiring restraints. Continue to treat underlying causes of hypernatremia. Check ammonia levels. Neurology consultation. Head CT negative. No MRI brain secondary to shunt Oropharyngeal dysphasia. Patient status post PEG placement yesterday. Advance tube feedings as tolerated. Hypernatremia. Continue free water and IV fluids Acute renal failure/MYRTLE. Etiology likely secondary to vasomotor nephropathy/dehydration. Nephrology following. Hyperlipidemia. Continue statins. Hypokalemia. Replete potassium as needed. Hypertension. Continue antihypertensive medications. Diabetes mellitus type 2. Continue Accu-Cheks, sliding scale regular insulin and Lantus History Interval history: Patient is 53 yo male with hypertension, previous stroke, diabetes, BPH, resident of [facility] sent in for altered mental status and poor po intake.Patient has CVA --hence institutionalized at a young age.As per Nursing staff patient normally talkative till 3 days prior to admisson .Now lethargic and grunts when asked questions. No fever or chills.Very poor po intake. He was admitted. CT head unremarkable. Could not do MRI Brain because previous shunt. CT Head with contrast did not show new stroke. He remained lethargic, dysphagia with Dobhoff tube so PEG placed today 02/08/19, to start PEG tube feeds tomorrow 02/09/19. May dc back to [place] when tolerating tube feeds. No new issues overnight. Patient still confused and requiring restraints Hospitalist Physical - Constitutional Vitals: Temp Pulse Resp BP Pulse Ox 99.3 F 106 H 18 135/88 95 02/09/19 05:23 02/09/19 05:23 02/09/19 05:49 02/09/19 05:23 02/09/19 05:23 General appearance: Present: no acute distress - EENT Eyes: Present: PERRL, EOM intact ENT: hearing intact, clear oral mucosa, dentition normal - Neck Neck: Present: supple, normal ROM - Respiratory Respiratory effort: normal Respiratory: bilateral: CTA - Cardiovascular Rhythm: regular Heart Sounds: Present: S1 & S2. Absent: gallop, rub - Extremities Extremities: no ischemia, No edema, Full ROM - Abdominal General gastrointestinal: soft, non-tender, non-distended, normal bowel sounds - Integumentary Integumentary: Present: clear, warm, dry - Neurologic Neurologic: CNII-XII intact, moves all extremities Results - Labs CBC & Chem 7: 02/03/19 07:00 02/09/19 07:28 Labs: Laboratory Last Values WBC 6.2 K/mm3 (4.5-11.0) 02/03/19 07:00 RBC 3.91 M/mm3 (3.65-5.03) 02/03/19 07:00 Hgb 9.7 gm/dl (11.8-15.2) L 02/03/19 07:00 Hct 29.7 % (35.5-45.6) L 02/03/19 07:00 MCV 76 fl (84-94) L 02/03/19 07:00 MCH 25 pg (28-32) L 02/03/19 07:00 MCHC 33 % (32-34) 02/03/19 07:00 RDW 17.0 % (13.2-15.2) H 02/03/19 07:00 Plt Count 195 K/mm3 (140-440) 02/03/19 07:00 Lymph % (Auto) 19.1 % (13.4-35.0) 01/28/19 06:04 [place] % (Auto) 8.7 % (0.0-7.3) H 01/28/19 06:04 Eos % (Auto) 3.1 % (0.0-4.3) 01/28/19 06:04 Baso % (Auto) 0.3 % (0.0-1.8) 01/28/19 06:04 Lymph # 1.3 K/mm3 (1.2-5.4) 01/28/19 06:04 [place] # 0.6 K/mm3 (0.0-0.8) 01/28/19 06:04 Eos # 0.2 K/mm3 (0.0-0.4) 01/28/19 06:04 Baso # 0.0 K/mm3 (0.0-0.1) 01/28/19 06:04 Add Manual Diff Complete 02/01/19 03:50 Total Counted 100 02/01/19 03:50 Seg Neutrophils % 68.8 % (40.0-70.0) 01/28/19 06:04 Seg Neuts % (Manual) 78.0 % (40.0-70.0) H 02/01/19 03:50 1.0 % 02/01/19 03:50 16.0 % (13.4-35.0) 02/01/19 03:50 Reactive Lymphs % (Man) 0 % 02/01/19 03:50 1.0 % (0.0-7.3) 02/01/19 03:50 4.0 % (0.0-4.3) 02/01/19 03:50 0 % (0.0-1.8) 02/01/19 03:50 0 % 02/01/19 03:50 0 % 02/01/19 03:50 0 % 02/01/19 03:50 0 % 02/01/19 03:50 Nucleated RBC % Not Reportable 02/01/19 03:50 Seg Neutrophils # 4.8 K/mm3 (1.8-7.7) 01/28/19 06:04 Seg Neutrophils # Man 6.4 K/mm3 (1.8-7.7) 02/01/19 03:50 Band Neutrophils # 0.1 K/mm3 02/01/19 03:50 1.3 K/mm3 (1.2-5.4) 02/01/19 03:50 Abs React Lymphs (Man) 0.0 K/mm3 02/01/19 03:50 0.1 K/mm3 (0.0-0.8) 02/01/19 03:50 0.3 K/mm3 (0.0-0.4) 02/01/19 03:50 0.0 K/mm3 (0.0-0.1) 02/01/19 03:50 0.0 K/mm3 02/01/19 03:50 0.0 K/mm3 02/01/19 03:50 0.0 K/mm3 02/01/19 03:50 Blast Cells # 0.0 K/mm3 02/01/19 03:50 WBC Morphology Not Reportable 02/01/19 03:50 Hypersegmented Neuts Not Reportable 02/01/19 03:50 Hyposegmented Neuts Not Reportable 02/01/19 03:50 Hypogranular Neuts Not Reportable 02/01/19 03:50 Not Reportable 02/01/19 03:50 Not Reportable 02/01/19 03:50 Not Reportable 02/01/19 03:50 Not Reportable 02/01/19 03:50 Not Reportable 02/01/19 03:50 Not Reportable 02/01/19 03:50 Appears normal 02/01/19 03:50 Not Reportable 02/01/19 03:50 Plt Clumps, EDTA Not Reportable 02/01/19 03:50 Not Reportable 02/01/19 03:50 Not Reportable 02/01/19 03:50 Not Reportable 02/01/19 03:50 Plt Morphology Comment Not Reportable 02/01/19 03:50 RBC Morphology Not Reportable 02/01/19 03:50 Dimorphic RBCs Not Reportable 02/01/19 03:50 Not Reportable 02/01/19 03:50 1+ 02/01/19 03:50 Not Reportable 02/01/19 03:50 1+ 02/01/19 03:50 Not Reportable 02/01/19 03:50 Not Reportable 02/01/19 03:50 Not Reportable 02/01/19 03:50 Not Reportable 02/01/19 03:50 Not Reportable 02/01/19 03:50 Not Reportable 02/01/19 03:50 Not Reportable 02/01/19 03:50 Not Reportable 02/01/19 03:50 Not Reportable 02/01/19 03:50 Not Reportable 02/01/19 03:50 Not Reportable 02/01/19 03:50 Not Reportable 02/01/19 03:50 Not Reportable 02/01/19 03:50 Not Reportable 02/01/19 03:50 Not Reportable 02/01/19 03:50 Acanthocytes (Spur) Not Reportable 02/01/19 03:50 Rouleaux Not Reportable 02/01/19 03:50 Not Reportable 02/01/19 03:50 Not Reportable 02/01/19 03:50 Not Reportable 02/01/19 03:50 Not Reportable 02/01/19 03:50 Hem Pathologist Commnt No 02/01/19 03:50 PT 12.8 Sec. (12.2-14.9) 02/04/19 15:38 INR 0.91 (0.87-1.13) 02/04/19 15:38 POC ABG pH 7.479 (7.35-7.45) H 01/28/19 19:00 POC ABG pCO2 32.3 (35-45) L 01/28/19 19:00 POC ABG pO2 93 (80-105) 01/28/19 19:00 POC ABG HCO3 24.0 (22-26 mml/L) 01/28/19 19:00 POC ABG Total CO2 25 (23-27mmol/L) 01/28/19 19:00 POC ABG O2 Sat 98 01/28/19 19:00 POC ABG Base Excess 0 ((-2) - (+3)mmol/L) 01/28/19 19:00 21 % 01/28/19 19:00 Sodium 135 mmol/L (137-145) L 02/09/19 07:28 Potassium 4.5 mmol/L (3.6-5.0) 02/09/19 07:28 Chloride 99.6 mmol/L (98-107) 02/09/19 07:28 Carbon Dioxide 26 mmol/L (22-30) 02/09/19 07:28 14 mmol/L 02/09/19 07:28 BUN 11 mg/dL (9-20) 02/09/19 07:28 0.6 mg/dL (0.8-1.5) L 02/09/19 07:28 Estimated GFR > 60 ml/min 02/09/19 07:28 18 % 02/09/19 07:28 Glucose 145 mg/dL (75-100) H 02/09/19 07:28 POC Glucose 143 (70-105) H 02/09/19 07:53 Lactic Acid 1.40 mmol/L (0.7-2.0) 01/25/19 18:50 Calcium 8.4 mg/dL (8.4-10.2) 02/09/19 07:28 Magnesium 1.90 mg/dL (1.7-2.3) 02/09/19 07:28 0.20 mg/dL (0.1-1.2) 01/26/19 04:25 AST 12 units/L (5-40) 01/26/19 04:25 ALT 17 units/L (7-56) 01/26/19 04:25 84 units/L (35-129) 01/26/19 04:25 41.0 umol/L (25-60) 01/31/19 13:26 294 units/L (55-170) H 01/25/19 13:31 CK-MB (CK-2) 2.2 ng/mL (0.0-4.0) 01/25/19 13:31 CK-MB (CK-2) Rel Index 0.7 (0-4) 01/25/19 13:31 0.031 ng/mL (0.00-0.029) H D 01/26/19 04:25 6.4 g/dL (6.3-8.2) 01/26/19 04:25 2.3 g/dL (3.9-5) L 01/26/19 04:25 0.6 % 01/26/19 04:25 Triglycerides 172 mg/dL (2-149) H 01/25/19 13:31 Cholesterol 148 mg/dL (50-199) 01/25/19 13:31 82 mg/dL (50-130) 01/25/19 13:31 30 mg/dL (40-59) L 01/25/19 13:31 4.93 % 01/25/19 13:31 TSH 4.020 mlU/mL (0.270-4.200) 01/25/19 13:31 Free T4 0.89 ng/dL (0.76-1.46) 01/25/19 13:31 Yellow (Yellow) 01/25/19 15:00 Slightly-cloudy (Clear) 01/25/19 15:00 5.0 (5.0-7.0) 01/25/19 15:00 Ur Specific [place] 1.018 (1.003-1.030) 01/25/19 15:00 <15 mg/dl mg/dL (Negative) 01/25/19 15:00 50 mg/dL (Negative) 01/25/19 15:00 Neg mg/dL (Negative) 01/25/19 15:00 Neg (Negative) 01/25/19 15:00 Neg (Negative) 01/25/19 15:00 Neg (Negative) 01/25/19 15:00 4.0 mg/dL (<2.0) 01/25/19 15:00 Ur Leukocyte Esterase Neg (Negative) 01/25/19 15:00 3.0 /HPF (0.0-6.0) 01/25/19 15:00 1.0 /HPF (0.0-6.0) 01/25/19 15:00 U Epithel Cells (Auto) < 1.0 /HPF (0-13.0) 01/25/19 15:00 Hyaline Casts 9 /LPF 01/25/19 15:00 Active Medications - Current Medications Current Medications: Generic Name Dose Route Start Last Admin Trade Name Freq PRN Reason Stop Dose Admin Lipase/Protease/Amylase 1 each 01/26/19 11:[address] 10,500 Unit FEEDTUBE PRN PRN For Clogged Feeding Tube Heparin Sodium (Porcine) 5,000 unit 01/25/19 22:00 02/08/19 22:48 Heparin SUB-Q Not Given Q12HR [facility] Hydralazine HCl 10 mg 02/03/19 22:00 Apresoline IV Q8HR PRN Hypertension Dextrose/Sodium Chloride 1,000 mls @ 75 mls/hr 02/08/19 16:00 02/09/19 06:26 D5/0.45ns IV 75 mls/hr DIRECT NIKOLAS Administration Insulin Glargine 45 units 01/29/19 22:00 02/08/19 22:55 Lantus SUB-Q Not Given QHS [facility] Insulin Human Lispro 0 unit 02/05/19 07:30 02/09/19 08:25 Humalog SUB-Q Not Given ACHS [facility] Protocol Morphine Sulfate 2 mg 02/09/19 00:47 02/09/19 04:49 Morphine IV 2 mg Q3H PRN Administration Pain, Moderate (4-6) Pantoprazole Sodium 40 mg 02/09/19 10:00 Protonix PO QDAY NIKOLAS Simple Syrup 15 ml 01/26/19 11:47 Simple Syrup FEEDTUBE PRN PRN Hypoglycemia Simple Syrup 30 ml 01/26/19 11:47 Simple Syrup FEEDTUBE PRN PRN Hypoglycemia Sodium Bicarbonate 325 mg 01/26/19 11:47 Sodium Bicarbonate FEEDTUBE PRN PRN For Clogged Feeding Tube Sodium Chloride 10 ml 01/25/19 22:00 02/08/19 22:51 Sodium Chloride Flush Syringe 10 Ml IV Not Given BID NIKOLAS Sodium Chloride 10 ml 01/25/19 17:46 02/09/19 04:52 Sodium Chloride Flush Syringe 10 Ml IV 10 ml PRN PRN Administration LINE FLUSH Nutrition/Malnutrition Assess - Dietary Evaluation Nutrition/Malnutrition Findings: Nutrition Notes Start: 01/26/19 08:45 Freq: Status: Active Protocol: Document 02/08/19 15:47 RM (Rec: 02/08/19 16:09 RM [id number]) Nutrition Notes Initial or Follow up Reassessment Current Diagnosis Diabetes,Hypertension, Hyperlipidemia Other Pertinent Diagnosis Hyperkalemia, Acute encephalopathy, Dehydration, Multiple PUs, dysphagia Current Diet NPO Labs/Tests Reviewed Pertinent Medications Reviewed Height 5 ft 6 in Weight 72.5 kg [place] Body Weight (kg) 64.54 BMI 25.7 Subjective/Other Information Pt NPO for PEG placement today . Pt not in room at time of visit. Per nurse pt was tolerating TF prior to PEG placement. Burn Absent Trauma Absent #1 Nutrition Diagnosis Inadequate oral intake Diagnosis Progress(for reassessment Continues documentation) Is patient on ventilator? No Is Patient Ambulatory and/or Out of Bed No REE-(Perry-St. Jeor-confined to bed) [phone] Calculation Used for Recommendations Perry-St Jeor Additional Notes PRO: 1.2-1.5 g/kg (87-109 g/ day) Fluid: 1500 mL or per Nutrition Intervention Change Diet Order: TF consult Nutrition Support: Continue Glucerna 1.2 at 60 ml /hr. Water flush of 100 mls q 4 hrs . Kcal 1,728 Protein (gm) 86 Fluid (mL) 1,159 Goal #1 TF consult Anticipated Discharge Needs: Unable to determine at this time Follow-Up By: 02/10/19 Additional Comments Follow for TF consult
[2019-02-09] MEDS: PROTONIX PO SCH (12:29)
[2019-02-09] MEDS: HEPARIN SUB-Q SCH ×2 (12:35→22:22)
[2019-02-09] MEDS: SODIUM CHLORIDE FLUSH SYRINGE 10 ML IV SCH ×2 (12:38→22:22)
--- NOTE | 2019-02-09 13:13 | Progress Note ---
Assessment and Plan Patient sleeping and resting on room air. O2 saturation 98%.No acute respiratory distress.No change in general condition. - Patient Problems (1) Metabolic acidosis with increased anion gap and reduced excretion of inorganic acids Current Visit: Yes Status: Acute Plan to address problem: ABGs showed improvement in Acidosis. (2) IDDM (insulin dependent diabetes mellitus) Current Visit: Yes Status: Chronic Plan to address problem: Management as per primary care. (3) HTN (hypertension) Current Visit: Yes Status: Chronic Qualifiers: Hypertension type: essential hypertension Qualified Code(s): I10 - [place] l (primary) hypertension Plan to address problem: Management as per primary care. (4) Acute metabolic encephalopathy Current Visit: Yes Status: Acute Plan to address problem: Management as per primary care. (5) MYRTLE (acute kidney injury) Current Visit: Yes Status: Acute Plan to address problem: Management as per Nephrology. Subjective Date of service: 02/09/19 Principal diagnosis: Ac. Encephalopathy; MYRTLE; Hypernatremia; Hyperkalemia; IDDM Interval history: Patient sleeping and resting on room air. O2 saturation 98%.No acute respiratory distress.No change in general condition. Objective Vital Signs - 12hr 02/09/19 02/09/19 05:23 05:49 Temperature 99.3 F Pulse Rate 106 H Respiratory 18 18 Rate Blood Pressure 135/88 O2 Sat by Pulse 95 Oximetry Constitutional: no acute distress, asleep, other (somnolent, not following commands) Eyes: non-icteric ENT: oropharynx moist Neck: supple, no lymphadenopathy, no JVD, other (no thyromegaly) Effort: normal Ascultation: Bilateral: diminished breath sounds, rhonchi Percussion: Bilateral: not dull Cardiovascular: regular rate and rhythm Gastrointestinal: normoactive bowel sounds, soft, non-tender, non-distended Integumentary: normal Extremities: no cyanosis, no edema, pulses normal, no ischemia or petechiae Neurologic: pupils equal and round, other (hemiparesis, somnolent to lethargic) Psychiatric: other (Can Not asses due to his mental status.) CBC and BMP: 02/03/19 07:00 02/09/19 07:28 ABG, PT/INR, D-dimer: ABG POC ABG pH 7.479 (7.35-7.45) H 01/28/19 19:00 POC ABG pCO2 32.3 (35-45) L 01/28/19 19:00 POC ABG pO2 93 (80-105) 01/28/19 19:00 POC ABG HCO3 24.0 (22-26 mml/L) 01/28/19 19:00 POC ABG Total CO2 25 (23-27mmol/L) 01/28/19 19:00 POC ABG O2 Sat 98 01/28/19 19:00 PT/INR, D-dimer PT 12.8 Sec. (12.2-14.9) 02/04/19 15:38 INR 0.91 (0.87-1.13) 02/04/19 15:38 Abnormal lab findings: Abnormal Labs 01/25/19 01/25/19 01/25/19 13:31 13:31 13:31 WBC 12.0 H RBC 6.00 H Hgb Hct 47.7 H MCV 80 L MCH 25 L MCHC 31 L RDW 18.1 H Lymph % (Auto) 10.4 L [place] % (Auto) 9.3 H Lymph # [place] # 1.1 H Baso # Seg Neutrophils % 78.5 H Seg Neuts % (Manual) Nucleated RBC % Seg Neutrophils # 9.5 H POC ABG pH POC ABG pCO2 Sodium 159 H Potassium 6.0 H Chloride 119.0 H Carbon Dioxide BUN 185 H Creatinine 5.7 H D Glucose 433 H POC Glucose Lactic Acid 2.60 H* Calcium Magnesium Total Creatine Kinase 294 H Troponin T 0.080 H Albumin 2.6 L Triglycerides 172 H HDL Cholesterol 30 L 01/25/19 01/25/19 01/25/19 16:03 16:03 17:11 WBC RBC Hgb Hct MCV MCH MCHC RDW Lymph % (Auto) [place] % (Auto) Lymph # [place] # Baso # Seg Neutrophils % Seg Neuts % (Manual) Nucleated RBC % Seg Neutrophils # POC ABG pH POC ABG pCO2 Sodium Potassium Chloride Carbon Dioxide BUN Creatinine Glucose POC Glucose 346 H Lactic Acid 2.20 H* 2.30 H* Calcium Magnesium Total Creatine Kinase Troponin T Albumin Triglycerides HDL Cholesterol 01/25/19 01/25/19 01/26/19 18:50 23:08 00:22 WBC RBC Hgb Hct MCV MCH MCHC RDW Lymph % (Auto) [place] % (Auto) Lymph # [place] # Baso # Seg Neutrophils % Seg Neuts % (Manual) Nucleated RBC % Seg Neutrophils # POC ABG pH POC ABG pCO2 Sodium 162 H* Potassium Chloride 125.2 H Carbon Dioxide BUN 180 H Creatinine 5.1 H Glucose 438 H POC Glucose 480 H Lactic Acid Calcium Magnesium Total Creatine Kinase Troponin T 0.045 H D Albumin Triglycerides HDL Cholesterol 01/26/19 01/26/19 01/26/19 02:16 04:25 04:25 WBC RBC 5.21 H Hgb Hct MCV 80 L MCH 25 L MCHC 31 L RDW 18.0 H Lymph % (Auto) 8.2 L [place] % (Auto) 7.6 H Lymph # 0.8 L [place] # Baso # 0.2 H Seg Neutrophils % 81.6 H Seg Neuts % (Manual) Nucleated RBC % Seg Neutrophils # 8.3 H POC ABG pH POC ABG pCO2 Sodium 158 H Potassium Chloride 122.9 H Carbon Dioxide 21 L BUN 163 H Creatinine 3.9 H Glucose 465 H POC Glucose 462 H Lactic Acid Calcium 7.8 L Magnesium Total Creatine Kinase Troponin T Albumin 2.3 L Triglycerides HDL Cholesterol 01/26/19 01/26/19 01/26/19 04:25 05:33 10:08 WBC RBC Hgb Hct MCV MCH MCHC RDW Lymph % (Auto) [place] % (Auto) Lymph # [place] # Baso # Seg Neutrophils % Seg Neuts % (Manual) Nucleated RBC % Seg Neutrophils # POC ABG pH POC ABG pCO2 Sodium 160 H Potassium Chloride 123.9 H Carbon Dioxide 19 L BUN 161 H Creatinine 3.9 H Glucose 468 H POC Glucose 309 H 316 H Lactic Acid Calcium 7.8 L Magnesium Total Creatine Kinase Troponin T 0.031 H D Albumin Triglycerides HDL Cholesterol 01/26/19 01/26/19 01/27/19 14:30 16:11 03:18 WBC RBC Hgb Hct MCV MCH MCHC RDW Lymph % (Auto) [place] % (Auto) Lymph # [place] # Baso # Seg Neutrophils % Seg Neuts % (Manual) Nucleated RBC % Seg Neutrophils # POC ABG pH POC ABG pCO2 Sodium 160 H Potassium 3.4 L D Chloride 124.8 H Carbon Dioxide BUN 141 H Creatinine 2.9 H Glucose 126 H POC Glucose 167 H 184 H Lactic Acid Calcium 8.3 L Magnesium Total Creatine Kinase Troponin T Albumin Triglycerides HDL Cholesterol 01/27/19 01/27/19 01/27/19 06:23 06:33 06:33 WBC RBC Hgb Hct MCV 79 L MCH 25 L MCHC 31 L RDW 17.7 H Lymph % (Auto) [place] % (Auto) 8.1 H Lymph # [place] # Baso # Seg Neutrophils % 71.1 H Seg Neuts % (Manual) Nucleated RBC % Seg Neutrophils # POC ABG pH POC ABG pCO2 Sodium 157 H Potassium Chloride 121.4 H Carbon Dioxide BUN 117 H Creatinine 1.9 H Glucose 200 H POC Glucose 219 H Lactic Acid Calcium 8.3 L Magnesium Total Creatine Kinase Troponin T Albumin Triglycerides HDL Cholesterol 01/27/19 01/27/19 01/27/19 11:13 12:46 16:10 WBC RBC Hgb Hct MCV MCH MCHC RDW Lymph % (Auto) [place] % (Auto) Lymph # [place] # Baso # Seg Neutrophils % Seg Neuts % (Manual) Nucleated RBC % Seg Neutrophils # POC ABG pH POC ABG pCO2 Sodium Potassium Chloride Carbon Dioxide BUN Creatinine Glucose POC Glucose 200 H 205 H 230 H Lactic Acid Calcium Magnesium Total Creatine Kinase Troponin T Albumin Triglycerides HDL Cholesterol 01/28/19 01/28/19 01/28/19 00:09 06:04 06:04 WBC RBC Hgb 11.5 L Hct MCV 77 L MCH 25 L MCHC RDW 17.4 H Lymph % (Auto) [place] % (Auto) 8.7 H Lymph # [place] # Baso # Seg Neutrophils % Seg Neuts % (Manual) Nucleated RBC % Seg Neutrophils # POC ABG pH POC ABG pCO2 Sodium 159 H Potassium 3.3 L Chloride 123.1 H Carbon Dioxide BUN 75 H Creatinine Glucose 310 H POC Glucose 177 H Lactic Acid Calcium Magnesium Total Creatine Kinase Troponin T Albumin Triglycerides HDL Cholesterol 01/28/19 01/28/19 01/28/19 06:42 12:28 15:10 WBC RBC Hgb Hct MCV MCH MCHC RDW Lymph % (Auto) [place] % (Auto) Lymph # [place] # Baso # Seg Neutrophils % Seg Neuts % (Manual) Nucleated RBC % Seg Neutrophils # POC ABG pH POC ABG pCO2 Sodium Potassium Chloride Carbon Dioxide BUN Creatinine Glucose POC Glucose 384 H 280 H 282 H Lactic Acid Calcium Magnesium Total Creatine Kinase Troponin T Albumin Triglycerides HDL Cholesterol 01/28/19 01/28/19 01/28/19 18:54 19:00 21:44 WBC RBC Hgb Hct MCV MCH MCHC RDW Lymph % (Auto) [place] % (Auto) Lymph # [place] # Baso # Seg Neutrophils % Seg Neuts % (Manual) Nucleated RBC % Seg Neutrophils # POC ABG pH 7.479 H POC ABG pCO2 32.3 L Sodium Potassium Chloride Carbon Dioxide BUN Creatinine Glucose POC Glucose 189 H 179 H Lactic Acid Calcium Magnesium Total Creatine Kinase Troponin T Albumin Triglycerides HDL Cholesterol 01/29/19 01/29/19 01/29/19 01:48 04:37 05:38 WBC RBC Hgb Hct MCV MCH MCHC RDW Lymph % (Auto) [place] % (Auto) Lymph # [place] # Baso # Seg Neutrophils % Seg Neuts % (Manual) Nucleated RBC % Seg Neutrophils # POC ABG pH POC ABG pCO2 Sodium 164 H* Potassium 3.5 L Chloride 128.9 H Carbon Dioxide BUN 54 H Creatinine Glucose 271 H POC Glucose 238 H 248 H Lactic Acid Calcium Magnesium Total Creatine Kinase Troponin T Albumin Triglycerides HDL Cholesterol 01/29/19 01/29/19 01/29/19 10:26 13:19 17:57 WBC RBC Hgb Hct MCV MCH MCHC RDW Lymph % (Auto) [place] % (Auto) Lymph # [place] # Baso # Seg Neutrophils % Seg Neuts % (Manual) Nucleated RBC % Seg Neutrophils # POC ABG pH POC ABG pCO2 Sodium Potassium Chloride Carbon Dioxide BUN Creatinine Glucose POC Glucose 288 H 301 H 242 H Lactic Acid Calcium Magnesium Total Creatine Kinase Troponin T Albumin Triglycerides HDL Cholesterol 01/29/19 01/30/19 01/30/19 20:25 01:51 05:23 WBC RBC Hgb Hct MCV MCH MCHC RDW Lymph % (Auto) [place] % (Auto) Lymph # [place] # Baso # Seg Neutrophils % Seg Neuts % (Manual) Nucleated RBC % Seg Neutrophils # POC ABG pH POC ABG pCO2 Sodium Potassium Chloride Carbon Dioxide BUN Creatinine Glucose POC Glucose 223 H 229 H 218 H Lactic Acid Calcium Magnesium Total Creatine Kinase Troponin T Albumin Triglycerides HDL Cholesterol 01/30/19 01/30/19 01/30/19 07:16 10:26 14:24 WBC RBC Hgb Hct MCV MCH MCHC RDW Lymph % (Auto) [place] % (Auto) Lymph # [place] # Baso # Seg Neutrophils % Seg Neuts % (Manual) Nucleated RBC % Seg Neutrophils # POC ABG pH POC ABG pCO2 Sodium 155 H D Potassium 3.2 L Chloride 118.4 H Carbon Dioxide BUN 40 H Creatinine Glucose 246 H POC Glucose 257 H 240 H Lactic Acid Calcium 8.3 L Magnesium Total Creatine Kinase Troponin T Albumin Triglycerides HDL Cholesterol 01/30/19 01/30/19 01/30/19 18:30 20:44 23:38 WBC RBC Hgb Hct MCV MCH MCHC RDW Lymph % (Auto) [place] % (Auto) Lymph # [place] # Baso # Seg Neutrophils % Seg Neuts % (Manual) Nucleated RBC % Seg Neutrophils # POC ABG pH POC ABG pCO2 Sodium Potassium Chloride Carbon Dioxide BUN Creatinine Glucose POC Glucose 327 H 300 H 279 H Lactic Acid Calcium Magnesium Total Creatine Kinase Troponin T Albumin Triglycerides HDL Cholesterol 01/31/19 01/31/19 01/31/19 01:57 04:42 04:42 WBC RBC Hgb 10.1 L Hct 31.7 L MCV 79 L MCH 25 L MCHC RDW 17.4 H Lymph % (Auto) [place] % (Auto) Lymph # [place] # Baso # Seg Neutrophils % Seg Neuts % (Manual) 75.0 H Nucleated RBC % 2.0 H Seg Neutrophils # POC ABG pH POC ABG pCO2 Sodium 147 H D Potassium 3.2 L Chloride 110.0 H Carbon Dioxide BUN 28 H Creatinine Glucose 261 H POC Glucose 270 H Lactic Acid Calcium 7.8 L Magnesium Total Creatine Kinase Troponin T Albumin Triglycerides HDL Cholesterol 01/31/19 01/31/19 01/31/19 05:10 08:46 17:10 WBC RBC Hgb Hct MCV MCH MCHC RDW Lymph % (Auto) [place] % (Auto) Lymph # [place] # Baso # Seg Neutrophils % Seg Neuts % (Manual) Nucleated RBC % Seg Neutrophils # POC ABG pH POC ABG pCO2 Sodium Potassium Chloride Carbon Dioxide BUN Creatinine Glucose POC Glucose 239 H 242 H 298 H Lactic Acid Calcium Magnesium Total Creatine Kinase Troponin T Albumin Triglycerides HDL Cholesterol 01/31/19 02/01/19 02/01/19 21:10 02:17 03:50 WBC RBC Hgb Hct MCV MCH MCHC RDW Lymph % (Auto) [place] % (Auto) Lymph # [place] # Baso # Seg Neutrophils % Seg Neuts % (Manual) Nucleated RBC % Seg Neutrophils # POC ABG pH POC ABG pCO2 Sodium 146 H Potassium Chloride 110.9 H Carbon Dioxide 21 L BUN 26 H Creatinine 0.7 L Glucose 240 H POC Glucose 304 H 240 H Lactic Acid Calcium 8.3 L Magnesium Total Creatine Kinase Troponin T Albumin Triglycerides HDL Cholesterol 02/01/19 02/01/19 02/01/19 03:50 05:35 10:11 WBC RBC Hgb 10.2 L Hct 31.4 L MCV 78 L MCH 25 L MCHC RDW 16.9 H Lymph % (Auto) [place] % (Auto) Lymph # [place] # Baso # Seg Neutrophils % Seg Neuts % (Manual) 78.0 H Nucleated RBC % Seg Neutrophils # POC ABG pH POC ABG pCO2 Sodium Potassium Chloride Carbon Dioxide BUN Creatinine Glucose POC Glucose 208 H 186 H Lactic Acid Calcium Magnesium Total Creatine Kinase Troponin T Albumin Triglycerides HDL Cholesterol 02/01/19 02/01/19 02/01/19 14:35 17:25 20:44 WBC RBC Hgb Hct MCV MCH MCHC RDW Lymph % (Auto) [place] % (Auto) Lymph # [place] # Baso # Seg Neutrophils % Seg Neuts % (Manual) Nucleated RBC % Seg Neutrophils # POC ABG pH POC ABG pCO2 Sodium Potassium Chloride Carbon Dioxide BUN Creatinine Glucose POC Glucose 222 H 193 H 204 H Lactic Acid Calcium Magnesium Total Creatine Kinase Troponin T Albumin Triglycerides HDL Cholesterol 02/02/19 02/02/19 02/02/19 07:17 07:26 12:11 WBC RBC Hgb Hct MCV MCH MCHC RDW Lymph % (Auto) [place] % (Auto) Lymph # [place] # Baso # Seg Neutrophils % Seg Neuts % (Manual) Nucleated RBC % Seg Neutrophils # POC ABG pH POC ABG pCO2 Sodium Potassium 3.3 L D Chloride 107.8 H Carbon Dioxide BUN Creatinine 0.6 L Glucose 117 H POC Glucose 110 H 115 H Lactic Acid Calcium 7.9 L Magnesium Total Creatine Kinase Troponin T Albumin Triglycerides HDL Cholesterol 02/02/19 02/02/19 02/02/19 16:10 18:30 18:50 WBC RBC Hgb Hct MCV MCH MCHC RDW Lymph % (Auto) [place] % (Auto) Lymph # [place] # Baso # Seg Neutrophils % Seg Neuts % (Manual) Nucleated RBC % Seg Neutrophils # POC ABG pH POC ABG pCO2 Sodium Potassium Chloride Carbon Dioxide BUN Creatinine Glucose POC Glucose 182 H 200 H 198 H Lactic Acid Calcium Magnesium Total Creatine Kinase Troponin T Albumin Triglycerides HDL Cholesterol 02/03/19 02/03/19 02/03/19 00:40 06:50 07:00 WBC RBC Hgb Hct MCV MCH MCHC RDW Lymph % (Auto) [place] % (Auto) Lymph # [place] # Baso # Seg Neutrophils % Seg Neuts % (Manual) Nucleated RBC % Seg Neutrophils # POC ABG pH POC ABG pCO2 Sodium Potassium Chloride Carbon Dioxide BUN Creatinine 0.6 L Glucose 268 H POC Glucose 212 H 260 H Lactic Acid Calcium 8.1 L Magnesium Total Creatine Kinase Troponin T Albumin Triglycerides HDL Cholesterol 02/03/19 02/03/19 02/03/19 07:00 08:23 12:49 WBC RBC Hgb 9.7 L Hct 29.7 L MCV 76 L MCH 25 L MCHC RDW 17.0 H Lymph % (Auto) [place] % (Auto) Lymph # [place] # Baso # Seg Neutrophils % Seg Neuts % (Manual) Nucleated RBC % Seg Neutrophils # POC ABG pH POC ABG pCO2 Sodium Potassium Chloride Carbon Dioxide BUN Creatinine Glucose POC Glucose 275 H 198 H Lactic Acid Calcium Magnesium Total Creatine Kinase Troponin T Albumin Triglycerides HDL Cholesterol 02/03/19 02/04/19 02/04/19 21:50 02:23 05:17 WBC RBC Hgb Hct MCV MCH MCHC RDW Lymph % (Auto) [place] % (Auto) Lymph # [place] # Baso # Seg Neutrophils % Seg Neuts % (Manual) Nucleated RBC % Seg Neutrophils # POC ABG pH POC ABG pCO2 Sodium Potassium Chloride Carbon Dioxide BUN Creatinine Glucose POC Glucose 153 H 139 H 180 H Lactic Acid Calcium Magnesium Total Creatine Kinase Troponin T Albumin Triglycerides HDL Cholesterol 02/04/19 02/04/19 02/04/19 09:47 14:40 18:03 WBC RBC Hgb Hct MCV MCH MCHC RDW Lymph % (Auto) [place] % (Auto) Lymph # [place] # Baso # Seg Neutrophils % Seg Neuts % (Manual) Nucleated RBC % Seg Neutrophils # POC ABG pH POC ABG pCO2 Sodium Potassium Chloride Carbon Dioxide BUN Creatinine Glucose POC Glucose 204 H 176 H 180 H Lactic Acid Calcium Magnesium Total Creatine Kinase Troponin T Albumin Triglycerides HDL Cholesterol 02/04/19 02/04/19 02/05/19 18:35 21:35 01:31 WBC RBC Hgb Hct MCV MCH MCHC RDW Lymph % (Auto) [place] % (Auto) Lymph # [place] # Baso # Seg Neutrophils % Seg Neuts % (Manual) Nucleated RBC % Seg Neutrophils # POC ABG pH POC ABG pCO2 Sodium Potassium Chloride Carbon Dioxide BUN Creatinine Glucose POC Glucose 146 H 118 H 154 H Lactic Acid Calcium Magnesium Total Creatine Kinase Troponin T Albumin Triglycerides HDL Cholesterol 02/05/19 02/05/19 02/05/19 05:56 07:58 12:16 WBC RBC Hgb Hct MCV MCH MCHC RDW Lymph % (Auto) [place] % (Auto) Lymph # [place] # Baso # Seg Neutrophils % Seg Neuts % (Manual) Nucleated RBC % Seg Neutrophils # POC ABG pH POC ABG pCO2 Sodium Potassium Chloride Carbon Dioxide BUN Creatinine Glucose POC Glucose 182 H 210 H 166 H Lactic Acid Calcium Magnesium Total Creatine Kinase Troponin T Albumin Triglycerides HDL Cholesterol 02/05/19 02/05/19 02/06/19 16:40 21:15 07:36 WBC RBC Hgb Hct MCV MCH MCHC RDW Lymph % (Auto) [place] % (Auto) Lymph # [place] # Baso # Seg Neutrophils % Seg Neuts % (Manual) Nucleated RBC % Seg Neutrophils # POC ABG pH POC ABG pCO2 Sodium Potassium Chloride Carbon Dioxide BUN Creatinine Glucose POC Glucose 119 H 162 H 168 H Lactic Acid Calcium Magnesium Total Creatine Kinase Troponin T Albumin Triglycerides HDL Cholesterol 02/06/19 02/06/19 02/06/19 11:20 13:26 16:32 WBC RBC Hgb Hct MCV MCH MCHC RDW Lymph % (Auto) [place] % (Auto) Lymph # [place] # Baso # Seg Neutrophils % Seg Neuts % (Manual) Nucleated RBC % Seg Neutrophils # POC ABG pH POC ABG pCO2 Sodium Potassium Chloride Carbon Dioxide BUN Creatinine 0.6 L Glucose 187 H POC Glucose 132 H 170 H Lactic Acid Calcium Magnesium 1.50 L Total Creatine Kinase Troponin T Albumin Triglycerides HDL Cholesterol 02/06/19 02/07/19 02/07/19 21:15 07:36 11:26 WBC RBC Hgb Hct MCV MCH MCHC RDW Lymph % (Auto) [place] % (Auto) Lymph # [place] # Baso # Seg Neutrophils % Seg Neuts % (Manual) Nucleated RBC % Seg Neutrophils # POC ABG pH POC ABG pCO2 Sodium Potassium Chloride Carbon Dioxide BUN Creatinine Glucose POC Glucose 153 H 178 H 190 H Lactic Acid Calcium Magnesium Total Creatine Kinase Troponin T Albumin Triglycerides HDL Cholesterol 02/07/19 02/07/19 02/08/19 16:39 21:12 06:33 WBC RBC Hgb Hct MCV MCH MCHC RDW Lymph % (Auto) [place] % (Auto) Lymph # [place] # Baso # Seg Neutrophils % Seg Neuts % (Manual) Nucleated RBC % Seg Neutrophils # POC ABG pH POC ABG pCO2 Sodium Potassium Chloride Carbon Dioxide BUN Creatinine Glucose POC Glucose 160 H 140 H 108 H Lactic Acid Calcium Magnesium Total Creatine Kinase Troponin T Albumin Triglycerides HDL Cholesterol 02/09/19 02/09/19 02/09/19 02:58 07:28 07:53 WBC RBC Hgb Hct MCV MCH MCHC RDW Lymph % (Auto) [place] % (Auto) Lymph # [place] # Baso # Seg Neutrophils % Seg Neuts % (Manual) Nucleated RBC % Seg Neutrophils # POC ABG pH POC ABG pCO2 Sodium 135 L Potassium Chloride Carbon Dioxide BUN Creatinine 0.6 L Glucose 145 H POC Glucose 124 H 143 H Lactic Acid Calcium Magnesium Total Creatine Kinase Troponin T Albumin Triglycerides HDL Cholesterol 02/09/19 12:44 WBC RBC Hgb Hct MCV MCH MCHC RDW Lymph % (Auto) [place] % (Auto) Lymph # [place] # Baso # Seg Neutrophils % Seg Neuts % (Manual) Nucleated RBC % Seg Neutrophils # POC ABG pH POC ABG pCO2 Sodium Potassium Chloride Carbon Dioxide BUN Creatinine Glucose POC Glucose 165 H Lactic Acid Calcium Magnesium Total Creatine Kinase Troponin T Albumin Triglycerides HDL Cholesterol Allied health notes reviewed: nursing
--- NOTE | 2019-02-09 15:07 | Gastroenterology Progress Note ---
<ANEL TERRY - Last Filed: 02/09/19 15:07> Assessment and Plan 1.neurogenic dysphagia 2.PEG placement -s/p EGD yesterday with PEG placement that showed a large cratered gastric ulcer on the incisura with smaller secondary superficial ulcer near the large ulcer, healed scar from prior G-tube, and esophagitis -bx results pending -PEG site this am w/o s/s of infection or bleeding -bumper off loaded to prevent skin breakdown -daily PEG care/split gauze PRN -okay to start TFs via dietary recommendations -continue PPI and supportive care -no further recommendations per GI -will follow path Subjective Date of service: 02/09/19 Principal diagnosis: PEG placement Interval history: No acute distress. PEG site w/o redness, swelling, odor, drainage, or bleeding. Objective - Constitutional Vitals: Temp Pulse Resp BP Pulse Ox 99.3 F 106 H 18 135/88 95 02/09/19 05:23 02/09/19 05:23 02/09/19 05:49 02/09/19 05:23 02/09/19 05:23 General appearance: no acute distress - Respiratory Respiratory: bilateral: diminished - Gastrointestinal General gastrointestinal: Present: soft, non-distended, normal bowel sounds, ot her (+PEG) - Labs CBC & Chem 7: 02/03/19 07:00 02/09/19 07:28 Labs: Laboratory Results - last 24 hr 02/08/19 02/08/19 02/09/19 15:38 22:03 02:58 Sodium Potassium Chloride Carbon Dioxide Anion Gap BUN Creatinine Estimated GFR BUN/Creatinine Ratio Glucose POC Glucose 79 73 124 H Calcium Magnesium 02/09/19 02/09/19 02/09/19 07:28 07:53 12:44 Sodium 135 L Potassium 4.5 Chloride 99.6 Carbon Dioxide 26 Anion Gap 14 BUN 11 Creatinine 0.6 L Estimated GFR > 60 BUN/Creatinine Ratio 18 Glucose 145 H POC Glucose 143 H 165 H Calcium 8.4 Magnesium 1.90 <RONEN MEDINA - Last Filed: 02/09/19 22:56> Assessment and Plan Patient seen and examined. I have reviewed the advanced practitioner's evaluation, assessment, and plan, and agree with them. I note the following additions: G tube looks good with no sign of infection, may use for tube feeds f/u path results, cont PPI and avoid NSAIDs if possible Objective - Constitutional Vitals: Temp Pulse Resp BP Pulse Ox 99.2 F 98 H 28 H 136/74 98 02/09/19 22:19 02/09/19 17:40 02/09/19 22:19 02/09/19 22:19 02/09/19 17:40 - Labs CBC & Chem 7: 02/03/19 07:00 02/09/19 07:28 Labs: Laboratory Results - last 24 hr 02/09/19 02/09/19 02/09/19 02:58 07:28 07:53 Sodium 135 L Potassium 4.5 Chloride 99.6 Carbon Dioxide 26 Anion Gap 14 BUN 11 Creatinine 0.6 L Estimated GFR > 60 BUN/Creatinine Ratio 18 Glucose 145 H POC Glucose 124 H 143 H Calcium 8.4 Magnesium 1.90 02/09/19 02/09/19 02/09/19 12:44 17:45 21:05 Sodium Potassium Chloride Carbon Dioxide Anion Gap BUN Creatinine Estimated GFR BUN/Creatinine Ratio Glucose POC Glucose 165 H 146 H 149 H Calcium Magnesium
[2019-02-09] MEDS: LANTUS SUB-Q SCH (22:22)
[2019-02-10] MEDS: HumaLOG SUB-Q SCH ×2 (08:12→11:40)
[2019-02-10] MEDS: HEPARIN SUB-Q SCH (09:38)
[2019-02-10] MEDS: PROTONIX PO SCH (09:38)
[2019-02-10] MEDS: SODIUM CHLORIDE FLUSH SYRINGE 10 ML IV SCH (09:38)
--- NOTE | 2019-02-10 10:37 | Gastroenterology Progress Note ---
<ANEL TERRY - Last Filed: 02/10/19 10:26> Assessment and Plan 1.neurogenic dysphagia 2.PEG placement -s/p EGD with PEG placement that showed a large cratered gastric ulcer on the incisura with smaller secondary superficial ulcer near the large ulcer, healed scar from prior G-tube, and esophagitis -bx results positive for H pylori (negative for malignancy) -PEG site w/o s/s of infection or bleeding -daily PEG care/split gauze PRN -tolerating TFs -continue PPI -avoid NSAIDs if possible -start on bismuth quadruple therapy H pylori treatment (bismuth subsalicylate 525mg 4x/day, metronidazole 500mg TID, doxycycline 100mg BID (tetracycline not available), and PPI BID for 14 days) -continue supportive care -no further recommendations per GI -will sign off, please call if needed Subjective Date of service: 02/10/19 Principal diagnosis: PEG placement Interval history: No acute distress. PEG site w/o s/s of infection/bleeding. Tolerating TFs. Objective - Constitutional Vitals: Temp Pulse Resp BP Pulse Ox 99.9 F H 110 H 28 H 144/103 95 02/10/19 04:44 02/10/19 04:44 02/10/19 04:44 02/10/19 04:44 02/10/19 04:44 General appearance: no acute distress - Respiratory Respiratory: bilateral: diminished - Cardiovascular Rhythm: other (tachycardia) - Gastrointestinal General gastrointestinal: Present: soft, non-distended, normal bowel sounds, other (+PEG) - Labs CBC & Chem 7: 02/03/19 07:00 02/09/19 07:28 Labs: Laboratory Results - last 24 hr 02/09/19 02/09/19 02/09/19 12:44 17:45 21:05 POC Glucose 165 H 146 H 149 H 02/10/19 07:39 POC Glucose 190 H <RONEN MEDINA - Last Filed: 02/10/19 23:02> Assessment and Plan Patient seen and examined. I have reviewed the advanced practitioner's evaluation, assessment, and plan, and agree with them. I note the following additions: H Pylori induced gastric ulcer, so treat with quad therapy as above but patient will require either breath or stool study to confirm eradication of the H Pylori infection 2 weeks after complete antibiotic therapy. Ideally would repeat EGD in 6-8 weeks to confirm healing of the ulcer, though given patient's medical status that can be re-addressed based upon the patient's medical status in 2 months time Objective - Constitutional Vitals: Temp Pulse Resp BP Pulse Ox 98.1 F 106 H 20 129/92 98 02/10/19 11:34 02/10/19 11:34 02/10/19 11:34 02/10/19 11:34 02/10/19 11:34 - Labs CBC & Chem 7: 02/03/19 07:00 02/09/19 07:28 Labs: Laboratory Results - last 24 hr 02/10/19 02/10/19 07:39 11:23 POC Glucose 190 H 173 H
[2019-02-10] MEDS ORDERED: VIBRAMYCIN PO SCH (11:00)
[2019-02-10] MEDS ORDERED: PEPTO BISMOL PO SCH (12:00)
--- NOTE | 2019-02-10 12:19 | Discharge Summary ---
Providers - Providers Date of Admission: 01/25/19 17:46 Date of discharge: 02/10/19 Attending physician: DEJA ORTEGA 01/25/19 17:46 Consult to Dietitian/Nutrition [CONS] Routine Physician Instructions: Reason For Exam: Reason for Consult: Write/Manage Tube Feeding 01/25/19 17:50 Consult to Physician [CONS] Routine Comment: Consulting Provider: KELLY GAVIN Physician Instructions: Reason For Exam: ARF,Hypernatremia 01/25/19 23:01 Consult to Physician [CONS] Routine Comment: Consulting Provider: JOSUÉ QUIROZ Physician Instructions: Reason For Exam: ARF 01/26/19 11:16 Speech Therapy Evaluation and Treat [CONS] Routine Reason For Exam: swallow eval 01/28/19 16:41 Consult to Wound/ET Nurse [CONS] Routine Reason For Exam: wound eval for left leg and heel 01/31/19 11:18 Consult to Physician [CONS] Routine Comment: Consulting Provider: RAISA MENDOZA Physician Instructions: Reason For Exam: AMS 02/05/19 12:44 Consult to Physician [CONS] Routine Comment: Consulting Provider: LEANNE GARCÍA Physician Instructions: Reason For Exam: PEG tube placement Primary care physician: RAISA POE Hospitalization Reason for admission: AMS Condition: Fair Hospital course: Patient is 53 yo male with hypertension, previous stroke, diabetes, BPH, res ident of [facility] sent in for altered mental status and poor po intake.Patient has CVA --hence institutionalized at a young age.As per Nursing staff, patient normally talkative till 3 days prior to admisson he was found to be lethargic and grunted when asked questions. No fever or chills. The patient was admitted with diagnosis of metabolic encephalopathy secondary to hypernatremia. Pt was noted to have Very poor po intake. On arrival to the ER, pt was hypotensive with blood pressure in the 70s and had an elevated lactate level . He was also confused. labs notable for hyperkalemia of 6 , BUN of 185, creatinine of 5.7 He was admitted. The patient was seen by nephrology, neurology and gastroenterology in consultation. CT head unremarkable. Could not do MRI Brain because previous shunt. CT Head with contrast did not show new stroke. The patient received IV fluid hydration and etiology was felt to be secondary to acute kidney injury. The patient's sodium and creatinine returned back to normal. Unfortunately, encephalopathy persisted despite correction of metabolic derangements. Neurology did not see any evidence of infection of the [employer] shunt/ventriculitis. Neurology suspected part of the picture O was the effect of prior deep white matter CVA right hemisphere but this is old and not acute therefore static process. He remained lethargic with very little improvement instead of alertness again suspected by neurology to be from effect of prior stroke. As a result of his poor intake and dysphagia, GI was consulted. He remained with Dobhoff tube most of hospitalization. PEG placed on 02/08/19. PEG tube feeds were started which the patient tolerated it well. Patient is felt to receive maximal hospital benefit. Dedicated discharge time 40 minutes. Disposition: [id number]/[place]-03 SNF [facility] Time spent for discharge: 40 - Discharge Diagnoses (1) MYRTLE (acute kidney injury) Status: Acute (2) Acute hypernatremia Status: Acute (3) Acute kidney injury (nontraumatic) Status: Acute (4) Acute metabolic encephalopathy Status: Acute (5) Acute renal failure Status: Acute (6) Altered mental status Status: Acute (7) Dehydration Status: Acute (8) Hyperkalemia Status: Acute (9) Hypertension Status: Acute (10) Neurogenic dysphagia Status: Acute (11) Sepsis Status: Acute Qualifiers: Sepsis type: sepsis due to unspecified organism Qualified Code(s): A41.9 - Sepsis, unspecified organism (12) HLD (hyperlipidemia) Status: Chronic Qualifiers: Hyperlipidemia type: mixed hyperlipidemia Qualified Code(s): E78.2 - Mixed hyperlipidemia (13) HTN (hypertension) Status: Chronic Qualifiers: Hypertension type: essential hypertension Qualified Code(s): I10 - Essential (primary) hypertension Core Measure Documentation - Palliative Care Palliative Care/ Comfort Measures: Not Applicable - Core Measures Any of the following diagnoses?: none Exam - Constitutional Vitals: Temp Pulse Resp BP Pulse Ox 99.9 F H 110 H 28 H 144/103 95 02/10/19 04:44 02/10/19 04:44 02/10/19 04:44 02/10/19 04:44 02/10/19 04:44 General appearance: Present: no acute distress, well-nourished - EENT Eyes: Present: PERRL ENT: hearing intact, clear oral mucosa - Neck Neck: Present: supple, normal ROM - Respiratory Respiratory effort: normal Respiratory: bilateral: CTA - Cardiovascular Heart Sounds: Present: S1 & S2. Absent: rub, click - Extremities Extremities: pulses symmetrical, No edema Peripheral Pulses: within normal limits - Abdominal General gastrointestinal: Present: soft, non-tender, non-distended, normal bowel sounds Male genitourinary: Present: normal - Integumentary Integumentary: Present: clear, warm, dry - Musculoskeletal Musculoskeletal: gait normal, strength equal bilaterally - Psychiatric Psychiatric: appropriate mood/affect, intact judgment & insight - Neurologic Neurologic: CNII-XII intact, moves all extremities Plan Activity: advance as tolerated Weight Bearing Status: Non-Weight Bearing Diet: other (Tube feedings) Follow up with: RAISA POE MD [Primary Care Provider] - 3-5 Days
[2019-02-10 13:02] VITALS: BP 129/92
[2019-02-10] MEDS ORDERED: FLAGYL PO SCH (14:00)
== END 2019-02-10 15:05 | DRG 871 ==
LOC: ED 12:24 → CC1 17:46 → 4A 01-26 17:20 → 3A 02-05 18:14
PROVIDERS: ADMIT Internal Medicine; ATTEND Hospitalist
PROC: 06HM33Z Insertion of Infusion Device into Right Femoral Vein, Percutaneous Approach (ICD-10-PCS; 2019-01-25)
PROC: 4A033R1 Measurement of Arterial Saturation, Peripheral, Percutaneous Approach (ICD-10-PCS; principal; 2019-01-28)
PROC: 0DH63UZ Insertion of Feeding Device into Stomach, Percutaneous Approach (ICD-10-PCS; 2019-02-08)
DX: A41.9 Sepsis, unspecified organism (principal); G93.41 Metabolic encephalopathy; E86.0 Dehydration; L03.115 Cellulitis of right lower limb; E87.0 Hyperosmolality and hypernatremia; E11.9 Type 2 diabetes mellitus without complications; I10 Essential (primary) hypertension; J44.9 Chronic obstructive pulmonary disease, unspecified; R57.9 Shock, unspecified; N40.0 Benign prostatic hyperplasia without lower urinary tract symptoms; E78.2 Mixed hyperlipidemia; E87.6 Hypokalemia; N17.9 Acute kidney failure, unspecified; Z23 Encounter for immunization; Z79.899 Other long term (current) drug therapy; Z86.73 Personal history of transient ischemic attack (TIA), and cerebral infarction without residual deficits
CPT/HCPCS: 36415; 36600; 70450; 71045; 74018; 76770; 80048; 80053; 80061; 81001; 82140; 82550; 82553; 82803; 82962; 83735; 84439; 84443; 84484; 85007; 85025; 85027; 85610; 87040; 88305; 88342; 90732; 93005; 93010; G0378; J0360; J0610; J0692; J1580; J1644; J1815; J2270; J2704; J3370; J3475; J3480; J7030; J7040; J7042; J7070

== ENCOUNTER 2019-11-06 07:38 | Inpatient (IN) | payer MEDICAID ==
--- NOTE | 2019-11-06 07:56 | Emergency Department Report ---
HPI - General Time Seen by Provider: 11/06/19 07:48 - HPI HPI: 54-year-old -[place]aur[place] male presents to the emergency department via EMS from [facility] after he was found vomiting blood this morning. The patient has a past medical history of CVA with left-sided hemiparesis, hyperlipidemia, hypertension, insulin dependent diabetes, BPH. He is nonverbal at baseline and has a feeding tube in place. The patient does respond to some things with nodding and gestures but overall is a poor historian. The patient also presents with some tachycardia with a heart rate of about 140. ED Past Medical Hx - Past Medical History Hx Hypertension: Yes Hx CVA: Yes Hx Diabetes: Yes Hx GERD: Yes Hx COPD: Yes Additional medical history: shortness of breath, muscle weakness, abnormalities of gait and mobility, BPH,ENCEPHALOPATHY FX FEMUR KIDNEY FAILURE ANEMIA GLAUCOMA PSYCHOTIC DISORDER - Surgical History Additional Surgical History: G TUBE - Social History Smoking Status: Former Smoker - Medications Home Medications: Home Medications Medication Instructions Recorded Confirmed Last Taken Type Citalopram Hydrobromide [celeXA] 30 mg PO DAILY 02/07/16 11/06/19 02/06/16 History Acetaminophen [Acetaminophen TAB] 650 mg PO Q4HR PRN 01/25/19 11/06/19 Unknown History AtorvaSTATin [Lipitor] 20 mg PO QHS 01/25/19 11/06/19 Unknown History Insulin Lispro [HumaLOG VIAL] See Protocol SUB-Q BID 01/25/19 11/06/19 Unknown History Magnesium Oxide [Mag-Ox] 400 mg PO QDAY 01/25/19 11/06/19 Unknown History Quetiapine Fumarate [SEROquel] 50 mg PO TID 01/25/19 11/06/19 Unknown History Thiamine [Vitamin B-1] 100 mg PO DAILY 01/25/19 11/06/19 Unknown History Timolol 0.5% [Timoptic] 1 drop OU BID 01/25/19 11/06/19 Unknown History Insulin Glargine [Lantus VIAL] 45 units SUB-Q QHS units 02/10/19 11/06/19 Unknown Rx Lipase/Protease/Amylase [Pancreaze 1 each FEEDTUBE PRN PRN capsule 02/10/19 11/06/19 Unknown Rx 10,500 Unit] Simple Syrup 15 ml FEEDTUBE PRN PRN oral.liqd 02/10/19 11/06/19 Unknown Rx Ascorbic Acid [Vitamin C] 500 mg PO Q12H 11/06/19 11/06/19 Unknown History Bismuth Subsalicylate [Pepto 524 mg PO Q6HR PRN 11/06/19 11/06/19 Unknown History Bismol] Ferrous Sulfate [Ferrous Sulfate 450 mg PO BID 11/06/19 11/06/19 Unknown History Oral Liq 300 Mg/5 Ml] Latanoprost 0.005% [Xalatan 0.005%] 1 drop OP QHS 11/06/19 11/06/19 Unknown History Omeprazole 10 mg PO DAILY 11/06/19 11/06/19 Unknown History Sodium Bicarbonate 650 mg FEEDTUBE PRN PRN 11/06/19 11/06/19 Unknown History lisinopriL [Zestril TAB] 10 mg PO QDAY 11/06/19 11/06/19 Unknown History ED Review of Systems ROS: Stated complaint: GI BLEED Other details as noted in HPI Comment: Unobtainable due to pts medical conditions Physical Exam - Physical Exam Vital Signs: Vital Signs 11/06/19 07:53 Temperature 97.9 F Pulse Rate 139 H Respiratory 22 Rate Blood Pressure 113/52 [Left] Physical Exam: GENERAL: The patient is well-developed well-nourished. HEENT: Normocephalic. Atraumatic. Patient has moist mucous membranes. EYES: Extraocular motions are intact. NECK: Supple. Trachea is midline. CHEST/LUNGS: Clear to auscultation. There is no respiratory distress noted. HEART/CARDIOVASCULAR: Regular. There is moderate tachycardia. There is no murmur. ABDOMEN: Abdomen is soft, nontender. Patient has normal bowel sounds. There is no abdominal distention. SKIN:Skin is warm and dry. NEURO: Patient is mostly nonverbal. He does track with his eyes and nod his head. MUSCULOSKELETAL: There is no tenderness or deformity. Left-sided hemiparesis. There is no evidence of acute injury. ED Course Vital Signs 11/06/19 07:53 Temperature 97.9 F Pulse Rate 139 H Respiratory 22 Rate Blood Pressure 113/52 [Left] ED Medical Decision Making - Lab Data Result diagrams: 11/06/19 08:22 11/06/19 08:22 - EKG Data -: EKG Interpreted by Me EKG shows normal: sinus rhythm (PACs), axis, intervals, QRS complexes, ST-T w aves Rate: tachycardia (137 beats per minute) - EKG Data When compared to previous EKG there are: no significant change (except current EKG is faster) Interpretation: unchanged when compared t (01/25/19) - Radiology Data Radiology results: report reviewed Chest and abdominal series. HISTORY: Vomiting blood. COMPARISON: Chest x-ray 01/25/2019, abdominal film 02/04/2019. Chest one view: Heart size is normal. The aorta remains tortuous and ectatic. Overall lung volumes are diminished. Negative for localized infiltrate. Two-view abdomen: Gas is scattered throughout the abdomen in a nonobstructive fashion. Negative for free air or suspicious calcification. Mild gastric distention is noted. Moderate colonic stool is scattered diffusely. VPnshunt tubing overlies the right chest and right abdomen. Signer Name: Neil Rausch MD - Medical Decision Making This patient was sent in from his senior care after he had a moderate amount of hematemesis. However there has been no vomiting or hematemesis since being in the emergency department. He did present with tachycardia with a heart rate about 130. Patient's labs show a hemoglobin of 11.7. He has some hyperglycemia without signs of DKA. The patient had an elevated BUNs of about 50 and a BUNs to creatinine ratio of about 80. The elevated BUNs may be secondary to GI bleed versus dehydration. The patient was given 2 L of IV fluid with some mild improvement of the tachycardia but he still is at about 125 bpm. EKG shows sinus tachycardia without any ST elevation MN or dysrhythmia. The patient will be admitted to the hospital for further evaluation and treatment and was ac cepted for admission by the hospitalist, Dr Schwarz. - Differential Diagnosis GI Bleed, Dehydration, Dysrythmia, UTI Critical Care Time: No Critical care attestation.: If time is entered above; I have spent that time in minutes in the direct care of this critically ill patient, excluding procedure time. ED Disposition Clinical Impression: Tachycardia, Dehydration, IDDM (insulin dependent diabetes mellitus) Disposition: OP ADMIT IP TO THIS HOSP Is pt being admited?: Yes Condition: Fair Referrals: PRIMARY CARE, [Primary Care Provider] - 3-5 Days Forms: Accompanied Note Time of Disposition: 15:08
--- NOTE | 2019-11-06 08:35 | XRay Report ---
Chest and abdominal series. HISTORY: Vomiting blood. COMPARISON: Chest x-ray 01/25/2019, abdominal film 02/04/2019. Chest one view: Heart size is normal. The aorta remains tortuous and ectatic. Overall lung volumes ar e diminished. Negative for localized infiltrate. Two-view abdomen: Gas is scattered throughout the abdomen in a nonobstructive fashion. Negative for f ree air or suspicious calcification. Mild gastric distention is noted. Moderate colonic stool is scat tered diffusely. VPnshunt tubing overlies the right chest and right abdomen. Signer Name: Neil Rausch MD Signed: 11/06/2019 8:31 AM Workstation Name: [id number]
[2019-11-06 08:54] LABS: Basophils % (Auto) 0.5 % (0.0-1.8); Eosinophils # (Auto) 0.2 K/mm3 (0.0-0.4); Hematocrit 36.1 % (35.5-45.6); Hemoglobin 11.7 gm/dl (11.8-15.2); Lymphocytes # (Auto) 1.5 K/mm3 (1.2-5.4); Lymphocytes % (Auto) 17.8 % (13.4-35.0); Mean Corpuscular HGB Conc 33 % (32-34); Mean Corpuscular Volume 80 fl (84-94); Monocytes # (Auto) 0.4 K/mm3 (0.0-0.8); Monocytes % (Auto) 5.5 % (0.0-7.3); Platelet Count 249 K/mm3 (140-440); Red Blood Count 4.49 M/mm3 (3.65-5.03); Red Cell Distribution Width 16.9 % (13.2-15.2)
[2019-11-06 09:44] LABS: Alanine Aminotransferase 14 units/L (7-56); BUN/Creatinine Ratio 86; Blood Urea Nitrogen 43 mg/dL (9-20); Calcium 8.7 mg/dL (8.4-10.2); Hemolysis Index 26
[2019-11-06] MEDS ORDERED: SODIUM CHLORIDE 0.9% 1000 ML 1,000 ML IV ONE ×2 (09:56→12:12)
[2019-11-06 11:04] LABS: INR 1.15 (0.87-1.13); Partial Thromboplastin Time 26.2 Sec. (24.2-36.6)
--- NOTE | 2019-11-06 19:52 | History and Physical Report ---
History of Present Illness Date of examination: 11/06/19 Date of admission: 11/06/2019 Chief complaint: Vomiting blood this am History of present illness: 54-year-old -[place] male presents from [facility] after he was found vomiting blood this morning.Came by EMS. The patient has a past medical history of CVA with left-sided hemiplegia, hyperlipidemia, hypertension, insulin dependent diabetes, BPH and Glaucoma. He is nonverbal at baseline and has a feeding tube in place. The patient does respond to some things with nodding and gestures but overall is a poor historian. The patient also presents with some tachycardia with a heart rate of about 140.Says yes mostly. Past Medical History Hypertension: Yes CVA: Yes Diabetes: Yes GERD: Yes COPD: Yes Additional medical history: shortness of breath, muscle weakness, abnormalities of gait and mobility, BPH,ENCEPHALOPATHY FX FEMUR KIDNEY FAILURE ANEMIA GLAUCOMA PSYCHOTIC DISORDER Surgical History Additional Surgical History: G TUBE Social History Smoking Status: Former Smoker Family History Unobtainable - Medications Home Medications: Home Medications Medication Instructions Recorded Confirmed Last Taken Type Citalopram Hydrobromide [celeXA] 30 mg PO DAILY 02/07/16 11/06/19 02/06/16 History Acetaminophen [Acetaminophen TAB] 650 mg PO Q4HR PRN 01/25/19 11/06/19 Unknown History AtorvaSTATin [Lipitor] 20 mg PO QHS 01/25/19 11/06/19 Unknown History Insulin Lispro [HumaLOG VIAL] See Protocol SUB-Q BID 01/25/19 11/06/19 Unknown History Magnesium Oxide [Mag-Ox] 400 mg PO QDAY 01/25/19 11/06/19 Unknown History Quetiapine Fumarate [SEROquel] 50 mg PO TID 01/25/19 11/06/19 Unknown History Thiamine [Vitamin B-1] 100 mg PO DAILY 01/25/19 11/06/19 Unknown History Timolol 0.5% [Timoptic] 1 drop OU BID 01/25/19 11/06/19 Unknown History Insulin Glargine [Lantus VIAL] 45 units SUB-Q QHS units 02/10/19 11/06/19 Unknown Rx Lipase/Protease/Amylase [Pancreaze 1 each FEEDTUBE PRN PRN capsule 02/10/19 11/06/19 Unknown Rx 10,500 Unit] Simple Syrup 15 ml FEEDTUBE PRN PRN oral.liqd 02/10/19 11/06/19 Unknown Rx Ascorbic Acid [Vitamin C] 500 mg PO Q12H 11/06/19 11/06/19 Unknown History Bismuth Subsalicylate [Pepto 524 mg PO Q6HR PRN 11/06/19 11/06/19 Unknown History Bismol] Ferrous Sulfate [Ferrous Sulfate 450 mg PO BID 11/06/19 11/06/19 Unknown History Oral Liq 300 Mg/5 Ml] Latanoprost 0.005% [Xalatan 0.005%] 1 drop OP QHS 11/06/19 11/06/19 Unknown History Omeprazole 10 mg PO DAILY 11/06/19 11/06/19 Unknown History Sodium Bicarbonate 650 mg FEEDTUBE PRN PRN 11/06/19 11/06/19 Unknown History lisinopriL [Zestril TAB] 10 mg PO QDAY 11/06/19 11/06/19 Unknown History Review of Systems ROS: Stated complaint: GI BLEED Other details as noted in HPI Comment: Unobtainable due to pts medical conditions Medications and Allergies Allergies Allergy/AdvReac Type Severity Reaction Status Date / Time Penicillins Allergy Unknown Verified 11/06/19 07:48 Home Medications Medication Instructions Recorded Confirmed Last Taken Type Citalopram Hydrobromide [celeXA] 30 mg PO DAILY 02/07/16 11/06/19 02/06/16 History Acetaminophen [Acetaminophen TAB] 650 mg PO Q4HR PRN 01/25/19 11/06/19 Unknown History AtorvaSTATin [Lipitor] 20 mg PO QHS 01/25/19 11/06/19 Unknown History Insulin Lispro [HumaLOG VIAL] See Protocol SUB-Q BID 01/25/19 11/06/19 Unknown History Magnesium Oxide [Mag-Ox] 400 mg PO QDAY 01/25/19 11/06/19 Unknown History Quetiapine Fumarate [SEROquel] 50 mg PO TID 01/25/19 11/06/19 Unknown History Thiamine [Vitamin B-1] 100 mg PO DAILY 01/25/19 11/06/19 Unknown History Timolol 0.5% [Timoptic] 1 drop OU BID 01/25/19 11/06/19 Unknown History Insulin Glargine [Lantus VIAL] 45 units SUB-Q QHS units 02/10/19 11/06/19 Unknown Rx Lipase/Protease/Amylase [Pancreaze 1 each FEEDTUBE PRN PRN capsule 02/10/19 11/06/19 Unknown Rx 10,500 Unit] Simple Syrup 15 ml FEEDTUBE PRN PRN oral.liqd 02/10/19 11/06/19 Unknown Rx Ascorbic Acid [Vitamin C] 500 mg PO Q12H 11/06/19 11/06/19 Unknown History Bismuth Subsalicylate [Pepto 524 mg PO Q6HR PRN 11/06/19 11/06/19 Unknown History Bismol] Ferrous Sulfate [Ferrous Sulfate 450 mg PO BID 11/06/19 11/06/19 Unknown History Oral Liq 300 Mg/5 Ml] Latanoprost 0.005% [Xalatan 0.005%] 1 drop OP QHS 11/06/19 11/06/19 Unknown History Omeprazole 10 mg PO DAILY 11/06/19 11/06/19 Unknown History Sodium Bicarbonate 650 mg FEEDTUBE PRN PRN 11/06/19 11/06/19 Unknown History lisinopriL [Zestril TAB] 10 mg PO QDAY 11/06/19 11/06/19 Unknown History Exam - Constitutional Vitals: Temp Pulse Resp BP Pulse Ox 98.8 F 125 H 20 120/88 99 11/06/19 19:38 11/06/19 19:38 11/06/19 19:38 11/06/19 19:38 11/06/19 19:38 General appearance: Present: mild distress, well-nourished - EENT Eyes: Present: PERRL ENT: hearing intact, clear oral mucosa - Neck Neck: Present: supple, normal ROM - Respiratory Respiratory effort: normal Respiratory: bilateral: CTA - Cardiovascular Heart rate: 78 Rhythm: regular Heart Sounds: Present: S1 & S2. Absent: rub, click - Extremities Extremities: no ischemia, pulses symmetrical, No edema Peripheral Pulses: within normal limits - Abdominal General gastrointestinal: Present: soft, non-tender, non-distended, normal bowel sounds Localized gastrointestinal: surgical scar: diffuse (PEG tube in place) Male genitourinary: Present: deferred - Rectal Rectal Exam: other (OB positive) - Integumentary Integumentary: Present: clear, warm, dry - Musculoskeletal Musculoskeletal: left sided weakness - Psychiatric Psychiatric: depressed - Neurologic Neurologic: focal deficits, other (Left hemiplegia) - Allied Health Allied health notes reviewed: nursing, case management Results - Labs CBC & Chem 7: 11/06/19 08:22 11/06/19 08:22 Labs: Laboratory Last Values WBC 8.2 K/mm3 (4.5-11.0) 11/06/19 08: RBC 4.49 M/mm3 (3.65-5.03) 11/06/19 08:22 Hgb 11.7 gm/dl (11.8-15.2) L 11/06/19 08:22 Hct 36.1 % (35.5-45.6) 11/06/19 08: MCV 80 fl (84-94) L 11/06/19 08: MCH 26 pg (28-32) L 11/06/19 08: MCHC 33 % (32-34) 11/06/19 08: RDW 16.9 % (13.2-15.2) H 11/06/19 08:22 Plt Count 249 K/mm3 (140-440) 11/06/19 08:22 Lymph % (Auto) 17.8 % (13.4-35.0) 11/06/19 08: [place] % (Auto) 5.5 % (0.0-7.3) 11/06/19 08: Eos % (Auto) 2.0 % (0.0-4.3) 11/06/19 08: Baso % (Auto) 0.5 % (0.0-1.8) 11/06/19 08: Lymph # 1.5 K/mm3 (1.2-5.4) 11/06/19 08: [place] # 0.4 K/mm3 (0.0-0.8) 11/06/19 08:22 Eos # 0.2 K/mm3 (0.0-0.4) 11/06/19 08:22 Baso # 0.0 K/mm3 (0.0-0.1) 11/06/19 08: Seg Neutrophils % 74.2 % (40.0-70.0) H 11/06/19 08:22 Seg Neutrophils # 6.1 K/mm3 (1.8-7.7) 11/06/19 08:22 PT 14.9 Sec. (12.2-14.9) 11/06/19 08:22 INR 1.15 (0.87-1.13) H 11/06/19 08:22 APTT 26.2 Sec. (24.2-36.6) 11/06/19 08:22 Sodium 136 mmol/L (137-145) L 11/06/19 08:22 Potassium 4.8 mmol/L (3.6-5.0) 11/06/19 08:22 Chloride 102.9 mmol/L (98-107) 11/06/19 08:22 Carbon Dioxide 17 mmol/L (22-30) L 11/06/19 08:22 Anion Gap 21 mmol/L 11/06/19 08:22 BUN 43 mg/dL (9-20) H 11/06/19 08:22 Creatinine 0.5 mg/dL (0.8-1.5) L 11/06/19 08:22 Estimated GFR > 60 ml/min 11/06/19 08:22 BUN/Creatinine Ratio 86 % 11/06/19 08:22 Glucose 223 mg/dL (75-100) H 11/06/19 08:22 POC Glucose 156 (70-105) H 11/06/19 17:57 Calcium 8.7 mg/dL (8.4-10.2) 11/06/19 08:22 Total Bilirubin 0.20 mg/dL (0.1-1.2) 11/06/19 08:22 AST 16 units/L (5-40) 11/06/19 08:22 ALT 14 units/L (7-56) 11/06/19 08:22 Alkaline Phosphatase 97 units/L (35-129) 11/06/19 08:22 Troponin T < 0.010 ng/mL (0.00-0.029) 11/06/19 08:22 Total Protein 6.6 g/dL (6.3-8.2) 11/06/19 08:22 Albumin 3.0 g/dL (3.9-5) L 11/06/19 08:22 Albumin/Globulin Ratio 0.8 % 11/06/19 08:22 TSH 1.720 mlU/mL (0.270-4.200) 11/06/19 08:22 Blood Type O POSITIVE 11/06/19 08:22 Antibody Screen Negative 11/06/19 08:22 Short CBC 11/06/19 Range/Units 08:22 WBC 8.2 (4.5-11.0) K/mm3 Hgb 11.7 L (11.8-15.2) gm/dl Hct 36.1 (35.5-45.6) % Plt Count 249 (140-440) K/mm3 BMP 11/06/19 08:22 Sodium 136 L Potassium 4.8 Chloride 102.9 Carbon Dioxide 17 L BUN 43 H Creatinine 0.5 L Glucose 223 H Calcium 8.7 Cardiac Enzymes 11/06/19 Range/Units 08:22 Troponin T < 0.010 (0.00-0.029) ng/mL Liver Function 11/06/19 Range/Units 08:22 Total Bilirubin 0.20 (0.1-1.2) mg/dL AST 16 (5-40) units/L ALT 14 (7-56) units/L Alkaline Phosphatase 97 (35-129) units/L Albumin 3.0 L (3.9-5) g/dL - Imaging and Cardiology EKG: report reviewed (Sinus Tacy 137/min) MRI - head: pending Assessment and Plan Advance Directives: Yes (Full code) VTE prophylaxis?: Chemical Plan of care discussed with patient/family: Yes - Patient Problems (1) Upper GI bleed Current Visit: Yes Status: Acute Plan to address problem: IV protonix drip for now GI consult IV Fluids (2) IDDM (insulin dependent diabetes mellitus) Current Visit: Yes Status: Chronic Plan to address problem: Cont coverage (3) Hypertension Current Visit: No Status: Chronic Qualifiers: Hypertension type: essential hypertension Qualified Code(s): I10 - Essential (primary) hypertension Plan to address problem: On catapress patch (4) Malnutrition Current Visit: Yes Status: Chronic Qualifiers: Malnutrition type: protein-calorie malnutrition Protein-calorie malnutrition severity: moderate Qualified Code(s): E44.0 - Moderate protein- calorie malnutrition Plan to address problem: Dietitian consult (5) BPH (benign prostatic hyperplasia) Current Visit: No Status: Chronic Qualifiers: Lower urinary tract symptom presence: symptoms present (6) HLD (hyperlipidemia) Current Visit: No Status: Chronic Qualifiers: Hyperlipidemia type: mixed hyperlipidemia Qualified Code(s): E78.2 - Mixed hyperlipidemia Plan to address problem: Statins on Hold (7) DVT prophylaxis Current Visit: No Status: Acute Plan to address problem: On Scd's
[2019-11-06] MEDS ORDERED: ONDANSETRON 4 MG/2 ML INJ IV PRN (20:00)
[2019-11-06] MEDS ORDERED: MORPHINE 2 MG/1 ML INJ IV PRN (20:00)
[2019-11-06] MEDS ORDERED: ACETAMINOPHEN 325 MG TAB PO PRN (20:00)
[2019-11-06] MEDS ORDERED: METOCLOPRAMIDE 10 MG/2 ML INJ IV PRN (20:00)
[2019-11-06] MEDS ORDERED: INSULIN LISPRO 100 UNIT/ML SUB-Q ONE (20:17)
[2019-11-06] MEDS: PANTOPRAZOLE 80 MG in SODIUM CHLORIDE 0.9% 100 ML IV SCH (21:30)
[2019-11-06] MEDS: SODIUM CHLORIDE 0.9% 1000 ML 1,000 ML IV SCH (23:07)
[2019-11-07] MEDS: LATANOPROST 0.005% OPHTH SOLN 2.5 ML OU SCH (01:11)
[2019-11-07] MEDS: TIMOLOL 0.5% OPHTH SOLN 5 ML OU SCH ×2 (01:13→21:23)
[2019-11-07] MEDS: PANTOPRAZOLE 80 MG in SODIUM CHLORIDE 0.9% 100 ML IV SCH ×2 (06:47→21:43)
--- NOTE | 2019-11-07 08:05 | Progress Note ---
Assessment and Plan Assessment and plan: 54-year-old -[place] male presents from [facility] after he was found vomiting blood this morning.Came by EMS. The patient has a past medical history of CVA with left-sided hemiplegia, hyperlipidemia, hypertension, insulin dependent diabetes, BPH and Glaucoma. He is nonverbal at baseline and has a feeding tube in place. The patient does respond to some things with nodding and gestures but overall is a poor historian. The patient also presents with some tachycardia with a heart rate of about 140.Says yes mostly. Upper GI bleed Current Visit: Yes Status: Acute Plan to address problem: IV protonix drip for now GI consult and plan for endoscopy today IV Fluids Acute blood loss anemia Status post transfusion. Follow H&H IDDM (insulin dependent diabetes mellitus) Current Visit: Yes Status: Chronic Plan to address problem: Cont coverage Hypertension Current Visit: No Status: Chronic Qualifiers: Hypertension type: essential hypertension Qualified Code(s): I10 - Essential (primary) hypertension Plan to address problem: On catapress patch Malnutrition Current Visit: Yes Status: Chronic Qualifiers: Malnutrition type: protein-calorie malnutrition Protein-calorie malnutrition severity: moderate Qualified Code(s): E44.0 - Moderate protein-calorie malnutrition Plan to address problem: Dietitian consult BPH (benign prostatic hyperplasia) Current Visit: No Status: Chronic Qualifiers: Lower urinary tract symptom presence: symptoms present HLD (hyperlipidemia) Current Visit: No Status: Chronic Qualifiers: Hyperlipidemia type: mixed hyperlipidemia Qualified Code(s): E78.2 - Mixed hyperlipidemia Plan to address problem: Statins on Hold CVA per history with profound encephalopathy Aspiration precautions. Try to obtain more information DVT prophylaxis Current Visit: No Status: Acute Plan to address problem: On Scd's Plan discussed with GI physician History Interval history: Patient seen and examined very lethargic awakens to voice but not following any commands has underlying history of CVA per history. Tube feed site intact no other acute pathology reported to me Hospitalist Physical - Physical exam Narrative exam: VITAL SIGNS: Reviewed. GENERAL: The patient appears normally developed, very somnolent vital signs as documented. HEAD: No signs of head trauma. EYES: Pupils are equal. Extraocular motions intact. EARS: Hearing grossly intact. MOUTH: Oropharynx is normal. NECK: No adenopathy, no JVD. CHEST: Chest with clear breath sounds bilaterally. No wheezes, rales, or rhonchi. CARDIAC: Regular rate and rhythm. S1 and S2, without murmurs, gallops, or rubs. VASCULAR: No Edema. Peripheral pulses normal and equal in all extremities. ABDOMEN: Soft, PEG tube site intact non tender and non distended. No rebound or guarding, and no masses palpated. Bowel Sounds normal. MUSCULOSKELETAL: Good range of motion of all major joints. Extremities without clubbing, cyanosis or edema. NEUROLOGIC EXAM: Awake. Cannot figure out orientation patient nonverbal although sometimes makes him on the sounds like yes. Full exam could not be completed patient not participatory PSYCHIATRIC: Mood normal. SKIN: detial exam as documented in skin assessment - Constitutional Vitals: Temp Pulse Resp BP Pulse Ox 98.4 F 107 H 18 123/85 97 11/07/19 06:01 11/07/19 06:01 11/07/19 06:01 11/07/19 06:01 11/07/19 06:01 General appearance: Present: mild distress, well-nourished Results - Labs CBC & Chem 7: 11/08/19 06:44 11/07/19 08:01 Labs: Laboratory Last Values WBC 8.2 K/mm3 (4.5-11.0) 11/06/19 08:22 RBC 4.49 M/mm3 (3.65-5.03) 11/06/19 08:22 Hgb 11.7 gm/dl (11.8-15.2) L 11/06/19 08:22 Hct 36.1 % (35.5-45.6) 11/06/19 08:22 MCV 80 fl (84-94) L 11/06/19 08:22 MCH 26 pg (28-32) L 11/06/19 08:22 MCHC 33 % (32-34) 11/06/19 08:22 RDW 16.9 % (13.2-15.2) H 11/06/19 08:22 Plt Count 249 K/mm3 (140-440) 11/06/19 08:22 Lymph % (Auto) 17.8 % (13.4-35.0) 11/06/19 08:22 [place] % (Auto) 5.5 % (0.0-7.3) 11/06/19 08:22 Eos % (Auto) 2.0 % (0.0-4.3) 11/06/19 08:22 Baso % (Auto) 0.5 % (0.0-1.8) 11/06/19 08:22 Lymph # 1.5 K/mm3 (1.2-5.4) 11/06/19 08:22 [place] # 0.4 K/mm3 (0.0-0.8) 11/06/19 08:22 Eos # 0.2 K/mm3 (0.0-0.4) 11/06/19 08:22 Baso # 0.0 K/mm3 (0.0-0.1) 11/06/19 08:22 Seg Neutrophils % 74.2 % (40.0-70.0) H 11/06/19 08:22 Seg Neutrophils # 6.1 K/mm3 (1.8-7.7) 11/06/19 08:22 PT 14.9 Sec. (12.2-14.9) 11/06/19 08:22 INR 1.15 (0.87-1.13) H 11/06/19 08:22 APTT 26.2 Sec. (24.2-36.6) 11/06/19 08:22 Sodium 136 mmol/L (137-145) L 11/06/19 08:22 Potassium 4.8 mmol/L (3.6-5.0) 11/06/19 08:22 Chloride 102.9 mmol/L (98-107) 11/06/19 08:22 Carbon Dioxide 17 mmol/L (22-30) L 11/06/19 08:22 Anion Gap 21 mmol/L 11/06/19 08:22 BUN 43 mg/dL (9-20) H 11/06/19 08:22 Creatinine 0.5 mg/dL (0.8-1.5) L 11/06/19 08:22 Estimated GFR > 60 ml/min 11/06/19 08:22 BUN/Creatinine Ratio 86 % 11/06/19 08:22 Glucose 223 mg/dL (75-100) H 11/06/19 08:22 POC Glucose 148 (70-105) H 11/06/19 23:58 Hemoglobin A1c 6.7 % (4-6) H 11/06/19 20:15 Calcium 8.7 mg/dL (8.4-10.2) 11/06/19 08:22 Total Bilirubin 0.20 mg/dL (0.1-1.2) 11/06/19 08:22 AST 16 units/L (5-40) 11/06/19 08:22 ALT 14 units/L (7-56) 11/06/19 08:22 Alkaline Phosphatase 97 units/L (35-129) 11/06/19 08:22 Troponin T < 0.010 ng/mL (0.00-0.029) 11/06/19 08:22 Total Protein 6.6 g/dL (6.3-8.2) 11/06/19 08: Albumin 3.0 g/dL (3.9-5) L 11/06/19 08: Albumin/Globulin Ratio 0.8 % 11/06/19 08: TSH 1.720 mlU/mL (0.270-4.200) 11/06/19 08:22 Blood Type O POSITIVE 11/06/19 08:22 Antibody Screen Negative 11/06/19 08:22 Active Medications - Current Medications Current Medications: Generic Name Dose Route Start Last Admin Trade Name Freq PRN Reason Stop Dose Admin Acetaminophen 650 mg 11/06/19 20:00 Tylenol PO Q4H PRN Pain MILD(1-3)/Fever >100.5/EPPS Sodium Chloride 1,000 mls @ 42 mls/hr 11/06/19 20:00 11/06/19 23:07 Nacl 0.9% 1000 Ml IV 42 mls/hr DIRECT NIKOLAS Administration Pantoprazole Sodium 80 mg/ 100 mls @ 10 mls/hr 11/06/19 21:00 11/07/19 06:47 Sodium Chloride IV 8 mg/hr DIRECT NIKOLAS 10 mls/hr Administration 8 MG/HR Latanoprost 1 drops 11/06/19 22:00 11/07/19 01:11 Latanoprost 0.005% OU 1 drops QHS NIKOLAS Administration Metoclopramide HCl 10 mg 11/06/19 20:00 Reglan IV Q6H PRN Nausea And Vomiting Morphine Sulfate 2 mg 11/06/19 20:00 Morphine IV Q4H PRN Pain, Moderate (4-6) Ondansetron HCl 4 mg 11/06/19 20:00 Zofran IV Q8H PRN Nausea And Vomiting Sodium Chloride 10 ml 11/06/19 22:00 11/06/19 23:11 Sodium Chloride Flush Syringe 10 Ml IV 10 ml BID NIKOLAS Administration Sodium Chloride 10 ml 11/06/19 20:00 Sodium Chloride Flush Syringe 10 Ml IV PRN PRN LINE FLUSH Timolol Maleate 1 drops 11/06/19 22:00 11/07/19 01:13 Timoptic OU 1 drops BID NIKOLAS Administration
[2019-11-07 08:36] LABS: Hematocrit 28.4 % (35.5-45.6); Hemoglobin 9.3 gm/dl (11.8-15.2)
[2019-11-07 08:39] LABS: Eosinophils # (Auto) 0.4 K/mm3 (0.0-0.4); Eosinophils % (Auto) 5.9 % (0.0-4.3); Monocytes # (Auto) 0.6 K/mm3 (0.0-0.8); Monocytes % (Auto) 9.2 % (0.0-7.3)
[2019-11-07 08:57] LABS: Alanine Aminotransferase 10 units/L (7-56); Albumin 3.1 g/dL (3.9-5); BUN/Creatinine Ratio 48; Blood Urea Nitrogen 24 mg/dL (9-20); Calcium 8.6 mg/dL (8.4-10.2); Hemolysis Index 5
[2019-11-07] MEDS ORDERED: SODIUM CHLORIDE 0.9% 1000 ML 1,000 ML ONE (10:05)
[2019-11-07] MEDS ORDERED: WATER FOR IRRIG STERILE 250 ML BOTTLE IR ONE (10:05)
[2019-11-07] MEDS ORDERED: WATER FOR IRRIG STERILE 1,000 ML BOTTLE ONE (10:07)
--- NOTE | 2019-11-07 10:07 | Anesthesia Consultation ---
Anesthesia Consult and Med Hx Date of service: 11/07/19 - Airway Anesthetic Teeth Evaluation: Good ROM Head & Neck: Adequate Mental/Hyoid Distance: Adequate Mallampati Class: Class III Intubation Access Assessment: Probably Good - Pre-Operative Health Status ASA Pre-Surgery Classification: ASA3, Emergency Proposed Anesthetic Plan: MAC - Pulmonary Hx Smoking: Yes COPD: Yes - Cardiovascular System Hx Hypertension: Yes - Central Nervous System CVA: Yes Hx Psychiatric Problems: Yes - Endocrine Hx Non-Insulin Dependent Diabetes: Yes - Hematic Hx Anemia: Yes - Other Systems Hx Cancer: No - Additional Comments Anesthesia Medical History Comments: 54-year-old -[place] male presents to the ED via EMS from [facility] after he was found vomiting blood yesterday AM. The patient has a past medical history of CVA with left-sided hemiparesis, HLD, HTN, IDDM, BPH. He is nonverbal at baseline and has a feeding tube in place. The patient does respond to some things with nodding and gestures but overall is a poor historian. The patient also presents with some tachycardia with a heart rate of about 140. Additional medical history: shortness of breath, muscle weakness, abnormalities of gait and mobility, BPH,ENCEPHALOPATHY FX FEMUR KIDNEY FAILURE ANEMIA GLAUCOMA PSYCHOTIC DISORDER- Schizophrenia. I spoke with patient's mother who gave phone consent.
--- NOTE | 2019-11-07 10:09 | Anesthesia Day of Surgery ---
Anesthesia Day of Surgery - Day of Surgery Patient Examined: Yes Patient H&P Reviewed: Yes Patient is NPO: Yes
[2019-11-07] MEDS ORDERED: propofoL 200 MG/20 ML VIAL IV ONE ×3 (10:14→11:03)
--- NOTE | 2019-11-07 10:14 | Gastroenterology Consultation ---
History of Present Illness - Reason for Consult Consult date: 11/07/19 GI bleed Requesting physician: ANTONIA VALENCIA - History of Present Illness The patient is a 54 yo aam with h/o CVA and residual deficits/non-verbal, s/p peg tube placement last year, he presents with hematemesis at half-way prior to arrival. He has had multiple episodes of melena since admission. No further vomiting blood episodes. History of gastric ulcer seen on endoscopy last year during peg tube placement. Biopsies were positive for H pylori (no malignancy on path). He has had drop in H/H since admission; BUN elevation and tachycardic. BP stable. On PPI drip, has been off tube feeds since admission. Past History Past Medical History: hypertension, stroke Past Surgical History: Other (peg tube placement) Social history: no significant social history Family history: no significant family history Medications and Allergies Allergies Allergy/AdvReac Type Severity Reaction Status Date / Time Penicillins Allergy Unknown Verified 11/06/19 07:48 Home Medications Medication Instructions Recorded Confirmed Last Taken Type Citalopram Hydrobromide [celeXA] 30 mg PO DAILY 02/07/16 11/06/19 02/06/16 History Acetaminophen [Acetaminophen TAB] 650 mg PO Q4HR PRN 01/25/19 11/06/19 Unknown History AtorvaSTATin [Lipitor] 20 mg PO QHS 01/25/19 11/06/19 Unknown History Insulin Lispro [HumaLOG VIAL] See Protocol SUB-Q BID 01/25/19 11/06/19 Unknown History Magnesium Oxide [Mag-Ox] 400 mg PO QDAY 01/25/19 11/06/19 Unknown History Quetiapine Fumarate [SEROquel] 50 mg PO TID 01/25/19 11/06/19 Unknown History Thiamine [Vitamin B-1] 100 mg PO DAILY 01/25/19 11/06/19 Unknown History Timolol 0.5% [Timoptic] 1 drop OU BID 01/25/19 11/06/19 Unknown History Insulin Glargine [Lantus VIAL] 45 units SUB-Q QHS units 02/10/19 11/06/19 Unknown Rx Lipase/Protease/Amylase [Pancreaze 1 each FEEDTUBE PRN PRN capsule 02/10/19 11/06/[address] 10,500 Unit] Simple Syrup 15 ml FEEDTUBE PRN PRN oral.liqd 02/10/19 11/06/19 Unknown Rx Ascorbic Acid [Vitamin C] 500 mg PO Q12H 11/06/19 11/06/19 Unknown History Bismuth Subsalicylate [Pepto 524 mg PO Q6HR PRN 11/06/19 11/06/19 Unknown History Bismol] Ferrous Sulfate [Ferrous Sulfate 450 mg PO BID 11/06/19 11/06/19 Unknown History Oral Liq 300 Mg/5 Ml] Latanoprost 0.005% [Xalatan 0.005%] 1 drop OP QHS 11/06/19 11/06/19 Unknown History Omeprazole 10 mg PO DAILY 11/06/19 11/06/19 Unknown History Sodium Bicarbonate 650 mg FEEDTUBE PRN PRN 11/06/19 11/06/19 Unknown History lisinopriL [Zestril TAB] 10 mg PO QDAY 11/06/19 11/06/19 Unknown History Active Meds: Active Medications Acetaminophen (Tylenol) 650 mg PO Q4H PRN PRN Reason: Pain MILD(1-3)/Fever >100.5/EPPS Sodium Chloride (Nacl 0.9% 1000 Ml) 1,000 mls @ 42 mls/hr IV DIRECT [facility] Last Admin: 11/06/19 23:07 Dose: 42 mls/hr Documented by: Pantoprazole Sodium 80 mg/ (Sodium Chloride) 100 mls @ 10 mls/hr IV DIRECT [facility] Last Admin: 11/07/19 06:47 Dose: 8 mg/hr, 10 mls/hr Documented by: Latanoprost (Latanoprost 0.005%) 1 drops OU QHS [facility] Last Admin: 11/07/19 01:11 Dose: 1 drops Documented by: Metoclopramide HCl (Reglan) 10 mg IV Q6H PRN PRN Reason: Nausea And Vomiting Morphine Sulfate (Morphine) 2 mg IV Q4H PRN PRN Reason: Pain, Moderate (4-6) Ondansetron HCl (Zofran) 4 mg IV Q8H PRN PRN Reason: Nausea And Vomiting Sodium Chloride (Sodium Chloride Flush Syringe 10 Ml) 10 ml IV BID [facility] Last Admin: 11/06/19 23:11 Dose: 10 ml Documented by: Sodium Chloride (Sodium Chloride Flush Syringe 10 Ml) 10 ml IV PRN PRN PRN Reason: LINE FLUSH Timolol Maleate (Timoptic) 1 drops OU BID NIKOLAS Last Admin: 11/07/19 01:13 Dose: 1 drops Documented by: Reviewed/updated patient's home and current medications Review of Systems - Review of Systems ROS unobtainable: due to mental status Exam - Constitutional Vital Signs: Temp Pulse Resp BP Pulse Ox 98.4 F 107 H 18 123/85 97 11/07/19 06:01 11/07/19 06:01 11/07/19 06:01 11/07/19 06:01 11/07/19 06:01 General appearance: no acute distress, other (non-verbal) - EENT Eyes: PERRL, EOM intact - Respiratory Respiratory effort: normal Respiratory: bilateral: CTA - Cardiovascular Rhythm: regular Heart Sounds: Present: S1 & S2 - Gastrointestinal General gastrointestinal: Present: soft, non-distended, other (+ G tube) - Integumentary Integumentary: Present: clear, warm - Neurologic Neurological: other (non-verbal) - Psychiatric Psychiatric: appropriate mood/affect - Labs CBC & Chem 7: 11/07/19 08:01 11/07/19 08:01 Lab Results: Laboratory Results - last 24 hr 11/06/19 11/06/19 11/06/19 08:22 17:57 20:15 Hgb Hct [place] % (Auto) Eos % (Auto) [place] # Eos # Baso # Seg Neutrophils % Seg Neutrophils # PT 14.9 INR 1.15 H APTT 26.2 Sodium Potassium Chloride Carbon Dioxide Anion Gap BUN Creatinine Estimated GFR BUN/Creatinine Ratio Glucose POC Glucose 156 H Hemoglobin A1c 6.7 H Calcium Total Bilirubin AST ALT Alkaline Phosphatase Total Protein Albumin Albumin/Globulin Ratio 11/06/19 11/06/19 11/07/19 21:48 23:58 08:01 Hgb Hct [place] % (Auto) 9.2 H Eos % (Auto) 5.9 H [place] # 0.6 Eos # 0.4 Baso # 0.0 Seg Neutrophils % 54.2 Seg Neutrophils # 3.7 PT INR APTT Sodium Potassium Chloride Carbon Dioxide Anion Gap BUN Creatinine Estimated GFR BUN/Creatinine Ratio Glucose POC Glucose 146 H 148 H Hemoglobin A1c Calcium Total Bilirubin AST ALT Alkaline Phosphatase Total Protein Albumin Albumin/Globulin Ratio 11/07/19 11/07/19 08:01 08:01 Hgb 9.3 L Hct 28.4 L D [place] % (Auto) Eos % (Auto) [place] # Eos # Baso # Seg Neutrophils % Seg Neutrophils # PT INR APTT Sodium 144 D Potassium 3.9 Chloride 110.9 H Carbon Dioxide 20 L Anion Gap 17 BUN 24 H Creatinine 0.5 L Estimated GFR > 60 BUN/Creatinine Ratio 48 Glucose 154 H POC Glucose Hemoglobin A1c Calcium 8.6 Total Bilirubin 0.30 AST 10 ALT 10 Alkaline Phosphatase 78 Total Protein 6.3 Albumin 3.1 L Albumin/Globulin Ratio 1.0 Assessment and Plan 1. Upper GI bleed 2. History of gastric ulcer 3. Oropharyngeal dysphagia with PEG tube 4. History of h pylori -cont IV PPI; will plan for EGD today.
[2019-11-07] MEDS ORDERED: LIDOCAINE (1%) 10 MG/1 ML VIAL 20 ML MDV ONE (10:24)
[2019-11-07] MEDS ORDERED: SODIUM BICARBONATE 325 MG TAB FEEDTUBE PRN (10:26)
[2019-11-07] MEDS ORDERED: SIMPLE SYRUP 15 ML FEEDTUBE PRN ×2 (10:26)
[2019-11-07] MEDS ORDERED: LIPASE 10,500/PROTEASE 25,000/AMYLASE 43,750 (UNITS) DR CAP FEEDTUBE PRN (10:26)
--- NOTE | 2019-11-07 11:16 | Operative Report ---
Operative Report Operative Report: Esophagogastroduodenoscopy Procedure Note with clip placement/control of bleeding Date of procedure: 11/07/2019 Endoscopist: Arsh Ruff Pre-op diagnosis/indication: Upper GI bleed Post-op diagnosis: Cratered ulcer at incisura with heme spot/oozing of blood s/p clip placement MEDICATIONS: MAC COMPLICATIONS: No immediate complications ESTIMATED BLOOD LOSS: Minimal DESCRIPTION OF PROCEDURE: After consent was obtained from the patient's brother over the phone, the patient was placed in the left lateral decubitis position. The olympus endoscope was inserted into the patient's mouth under direct vision and advanced to the 2nd portion of the duodenum without difficulty. The patient tolerated the procedure well. The views of the mucosa were good. The patient's vital signs were monitored continuously throughout the procedure. FINDINGS: There was erosive esophagitis in the lower esophagus. There was an ~1 cm cratered ulcer at the incisura. There were multiple heme spots with oozing of blood at one location. One clip was placed over this site with no active bleeding seen at the end of the procedure. There was mucosal oozing of blood secondary to the clip which was self-limiting. G tube was seen in normal location. The duodenum appeared normal. IMPRESSION: 1. Cratered ulcer at incisura with heme spots and one area of oozing s/p clip placement RECOMMENDATIONS: -continue IV PPI drip -if no further bleeding after 4 hours, okay to resume tube feeds. make NPO at midnight in case repeat endoscopy is needed tomorrow if further bleeding signs develop -trend labs and transfuse as needed to keep hgb > 7 -will follow
--- NOTE | 2019-11-07 11:24 | Post Anesthesia Evaluation ---
- Post Anesthesia Evaluation Patient Participated: Yes Airway Patent: Yes Stable Respiratory Function: Yes Nausea/Vomiting: No Temp > 96.8F: Yes Pain Manageable: Yes Adequeate Hydration: Yes Anesthesia Complications: No Block Receding Appropriately: Not Applicable Patient on Ventilator: No
[2019-11-07] MEDS ORDERED: SODIUM CHLORIDE 0.9% 1000 ML 1,000 ML IV SCH (11:45)
[2019-11-07 13:01] LABS: Red Blood Count 3.77 M/mm3 (3.65-5.03)
[2019-11-07 13:02] LABS: Hematocrit 29.9 % (35.5-45.6); Hemoglobin 9.7 gm/dl (11.8-15.2); Mean Corpuscular HGB Conc 32 % (32-34); Mean Corpuscular Volume 79 fl (84-94); Platelet Count 196 K/mm3 (140-440)
[2019-11-07 13:05] LABS: Basophils % (Auto) 0.4 % (0.0-1.8); Lymphocytes # (Auto) 2.1 K/mm3 (1.2-5.4); Lymphocytes % (Auto) 30.3 % (13.4-35.0)
[2019-11-07 16:08] LABS: Hematocrit 28.4 % (35.5-45.6); Hemoglobin 9.3 gm/dl (11.8-15.2)
[2019-11-08 07:29] LABS: Hematocrit 24.9 % (35.5-45.6); Hemoglobin 8.1 gm/dl (11.8-15.2); Mean Corpuscular HGB Conc 33 % (32-34); Mean Corpuscular Volume 80 fl (84-94); Platelet Count 174 K/mm3 (140-440); Red Blood Count 3.11 M/mm3 (3.65-5.03); Red Cell Distribution Width 16.8 % (13.2-15.2)
[2019-11-08 07:42] LABS: BUN/Creatinine Ratio 44; Blood Urea Nitrogen 22 mg/dL (9-20); Calcium 8.8 mg/dL (8.4-10.2); Hemolysis Index 4
[2019-11-08] MEDS: PANTOPRAZOLE 80 MG in SODIUM CHLORIDE 0.9% 100 ML IV SCH (10:06)
[2019-11-08] MEDS: TIMOLOL 0.5% OPHTH SOLN 5 ML OU SCH ×2 (10:10→21:16)
--- NOTE | 2019-11-08 11:03 | Gastroenterology Progress Note ---
Assessment and Plan 1. Upper GI bleed 2. History of gastric ulcer 3. Oropharyngeal dysphagia with PEG tube 4. History of h pylori (s/p tx) -H/H 8.1/24.9-trending down -continue to monitor H/H and transfuse as needed -no active signs of bleeding overnight or this am per nursing -s/p EGD yesterday 11/07/19 that showed cratered ulcer at incisura with heme spots and one area of oozing (s/p clip placement) -clinically, patient is HD stable. -okay to resume TFs today -continue protonix drip today, then transition to BID tomorrow if no further bleeding -continue to trend labs and supportive care -recommend repeat EGD as outpatient in a couple of months to insure healing -will follow Subjective Date of service: 11/08/19 Principal diagnosis: GI bleed Interval history: No active signs of bleeding per nursing overnight or this am. Objective - Constitutional Vitals: Temp Pulse Resp BP Pulse Ox 98.5 F 86 18 124/71 98 11/08/19 04:02 11/08/19 04:02 11/08/19 04:02 11/08/19 04:02 11/08/19 04:02 General appearance: no acute distress, other (nonverbal) - Respiratory Respiratory effort: normal Respiratory: bilateral: diminished - Cardiovascular Rhythm: regular - Gastrointestinal General gastrointestinal: Present: soft, non-distended, normal bowel sounds, other (+PEG) - Integumentary Integumentary: Present: warm, dry - Neurologic Neurological: other (unable to assess) - Labs CBC & Chem 7: 11/08/19 06:44 11/08/19 06:44 Labs: Laboratory Results - last 24 hr 11/07/19 11/07/19 11/07/19 08:01 08:01 12:04 WBC 6.7 RBC 3.77 Hgb 9.7 L 9.3 L Hct 29.9 L D 28.4 L MCV 79 L MCH 26 L MCHC 32 RDW 17.0 H Plt Count 196 Lymph % (Auto) 30.3 Baso % (Auto) 0.4 Lymph # 2.1 Sodium Potassium Chloride Carbon Dioxide Anion Gap BUN Creatinine Estimated GFR BUN/Creatinine Ratio Glucose POC Glucose 155 H Calcium 11/07/19 11/07/19 11/07/19 15:55 17:27 22:05 WBC RBC Hgb 9.3 L Hct 28.4 L MCV MCH MCHC RDW Plt Count Lymph % (Auto) Baso % (Auto) Lymph # Sodium Potassium Chloride Carbon Dioxide Anion Gap BUN Creatinine Estimated GFR BUN/Creatinine Ratio Glucose POC Glucose 115 H 116 H Calcium 11/08/19 11/08/19 11/08/19 06:44 06:44 07:48 WBC 6.2 RBC 3.11 L Hgb 8.1 L Hct 24.9 L MCV 80 L MCH 26 L MCHC 33 RDW 16.8 H Plt Count 174 Lymph % (Auto) Baso % (Auto) Lymph # Sodium 144 Potassium 3.6 Chloride 111.3 H Carbon Dioxide 19 L Anion Gap 17 BUN 22 H Creatinine 0.5 L Estimated GFR > 60 BUN/Creatinine Ratio 44 Glucose 121 H POC Glucose 117 H Calcium 8.8
--- NOTE | 2019-11-08 12:57 | Discharge Summary ---
Providers - Providers Date of Admission: 11/06/19 20:00 Attending physician: BENEDICT HERRERA MD 11/06/19 20:00 Consult to Physician [CONS] Routine Comment: BIJU Consulting Provider: ELAINA ARREDONDO Physician Instructions: CONSULT WAS CALLED TO /KELLEY Reason For Exam: GI Bleed 11/07/19 08:14 Consult to Dietitian/Nutrition [CONS] Routine Physician Instructions: Reason For Exam: Reason for Consult: Write/Manage Tube Feeding Primary care physician: GLOVE FORMER Hospitalization Reason for admission: GI bleed Condition: Fair Hospital course: 54-year-old -[place]er male presents from [facility] after he was found vomiting blood this morning.Came by EMS. The patient has a past medical history of CVA with left-sided hemiplegia, hyperlipidemia, hypertension, insulin dependent diabetes, BPH and Glaucoma. He is nonverbal at baseline and has a feeding tube in place. The patient does respond to some things with nodding and gestures but overall is a poor historian. The patient also presents with some tachycardia with a heart rate of about 140.Says yes mostly. * Hemoglobin had dropped from 11.1-9.3 and down to 8.1 today. We will repeat a stat hemoglobin prior to discharge * Patient underwent EGD that showed created ulcer in the incisura with heme spots and one area of oozing status post clip placed * No further bleeding was noted today patient tolerating tube feeds today * Transition to twice daily Protonix and plan for discharge today. 1. Upper GI bleed 2. History of gastric ulcer 3. Oropharyngeal dysphagia with PEG tube 4. History of h pylori (s/p tx) 5. Acute blood loss anemia 6. Diabetes mellitus 7. Moderate protein calorie malnutrition 8. Hypertension 9. BPH (benign prostatic hyperplasia) 10. HLD (hyperlipidemia) 11. CVA per history with profound encephalopathy Disposition: [id number]/TX-03 [facility] Time spent for discharge: 35 mins Core Measure Documentation - Palliative Care Palliative Care/ Comfort Measures: Not Applicable - Core Measures Any of the following diagnoses?: none Exam - Physical Exam Narrative exam: VITAL SIGNS: Reviewed. GENERAL: The patient appears normally developed, very somnolent vital signs as documented. HEAD: No signs of head trauma. EYES: Pupils are equal. Extraocular motions intact. EARS: Hearing grossly intact. MOUTH: Oropharynx is normal. NECK: No adenopathy, no JVD. CHEST: Chest with clear breath sounds bilaterally. No wheezes, rales, or rhonchi. CARDIAC: Regular rate and rhythm. S1 and S2, without murmurs, gallops, or rubs. VASCULAR: No Edema. Peripheral pulses normal and equal in all extremities. ABDOMEN: Soft, PEG tube site intact non tender and non distended. No rebound or guarding, and no masses palpated. Bowel Sounds normal. MUSCULOSKELETAL: Good range of motion of all major joints. Extremities without clubbing, cyanosis or edema. NEUROLOGIC EXAM: Awake. Cannot figure out orientation patient nonverbal although sometimes makes him on the sounds like yes. Full exam could not be completed patient not participatory PSYCHIATRIC: Mood normal. SKIN: detial exam as documented in skin assessment - Constitutional Vitals: Temp Pulse Resp BP Pulse Ox 97.8 F 83 14 117/73 96 11/08/19 11:38 11/08/19 11:38 11/08/19 11:38 11/08/19 11:38 11/08/19 11:38 Plan Activity: advance as tolerated, fall precautions Diet: low fat Additional Instructions: repeat hemoglobin and hematocrit on follow up with GI doctor Follow up with: ANITA JUAREZ MD [Primary Care Provider] - 3-5 Days TATE CHRISTIANSEN MD [Staff Physician] - 7 Days Forms: Accompanied Note Prescriptions: Pantoprazole [Protonix TAB] 40 mg PO QDAY #30 tablet
--- NOTE | 2019-11-08 15:23 | Progress Note ---
Assessment and Plan Assessment and plan: 54-year-old -[place] male presents from [facility] after he was found vomiting blood this morning.Came by EMS. The patient has a past medical history of CVA with left-sided hemiplegia, hyperlipidemia, hypertension, insulin dependent diabetes, BPH and Glaucoma. He is nonverbal at baseline and has a feeding tube in place. The patient does respond to some things with nodding and gestures but overall is a poor historian. The patient also presents with some tachycardia with a heart rate of about 140.Says yes mostly. * Hemoglobin had dropped from 11.1-9.3 and down to 8.1 today. We will repeat a stat hemoglobin prior to discharge * Patient underwent EGD that showed created ulcer in the incisura with heme spots and one area of oozing status post clip placed * No further bleeding was noted today patient tolerating tube feeds today * Will continue Protonix drip today as hgb still trending down and will repeat study in am and discharge if stable * Transition to twice daily Protonix tommorw with plan for discharge. 1. Upper GI bleed 2. History of gastric ulcer 3. Oropharyngeal dysphagia with PEG tube 4. History of h pylori (s/p tx) 5. Acute blood loss anemia 6. Diabetes mellitus 7. Moderate protein calorie malnutrition 8. Hypertension 9. BPH (benign prostatic hyperplasia) 10. HLD (hyperlipidemia) 11. CVA per history with profound encephalopathy Plan Continue PPI drip Resume Diet Continue chronci care management including DM control Aspiration precautions If h/h stable in am patient can be discharged No transfusion yet at this time. Transfuse as needed Valve Pipe Irrigator consulted History Interval history: Patient seen and examined more awake. no acute new complaints. Hospitalist Physical - Constitutional Vitals: Temp Pulse Resp BP Pulse Ox 97.8 F 83 14 117/73 96 11/08/19 11:38 11/08/19 11:38 11/08/19 11:38 11/08/19 11:38 11/08/19 11:38 General appearance: Present: mild distress, well-nourished Results - Labs CBC & Chem 7: 11/08/19 06:44 11/08/19 06:44 Labs: Laboratory Last Values WBC 6.2 K/mm3 (4.5-11.0) 11/08/19 06:44 RBC 3.11 M/mm3 (3.65-5.03) L 11/08/19 06:44 Hgb 8.1 gm/dl (11.8-15.2) L 11/08/19 06:44 Hct 24.9 % (35.5-45.6) L 11/08/19 06:44 MCV 80 fl (84-94) L 11/08/19 06:44 MCH 26 pg (28-32) L 11/08/19 06:44 MCHC 33 % (32-34) 11/08/19 06:44 RDW 16.8 % (13.2-15.2) H 11/08/19 06:44 Plt Count 174 K/mm3 (140-440) 11/08/19 06:44 Lymph % (Auto) 30.3 % (13.4-35.0) 11/07/19 08:01 [place] % (Auto) 9.2 % (0.0-7.3) H 11/07/19 08:01 Eos % (Auto) 5.9 % (0.0-4.3) H 11/07/19 08:01 Baso % (Auto) 0.4 % (0.0-1.8) 11/07/19 08:01 Lymph # 2.1 K/mm3 (1.2-5.4) 11/07/19 08:01 [place] # 0.6 K/mm3 (0.0-0.8) 11/07/19 08:01 Eos # 0.4 K/mm3 (0.0-0.4) 11/07/19 08:01 Baso # 0.0 K/mm3 (0.0-0.1) 11/07/19 08:01 Seg Neutrophils % 54.2 % (40.0-70.0) 11/07/19 08:01 Seg Neutrophils # 3.7 K/mm3 (1.8-7.7) 11/07/19 08:01 PT 14.9 Sec. (12.2-14.9) 11/06/19 08:22 INR 1.15 (0.87-1.13) H 11/06/19 08:22 APTT 26.2 Sec. (24.2-36.6) 11/06/19 08:22 Sodium 144 mmol/L (137-145) 11/08/19 06:44 Potassium 3.6 mmol/L (3.6-5.0) 11/08/19 06:44 Chloride 111.3 mmol/L (98-107) H 11/08/19 06:44 Carbon Dioxide 19 mmol/L (22-30) L 11/08/19 06:44 Anion Gap 17 mmol/L 11/08/19 06:44 BUN 22 mg/dL (9-20) H 11/08/19 06:44 Creatinine 0.5 mg/dL (0.8-1.5) L 11/08/19 06:44 Estimated GFR > 60 ml/min 11/08/19 06:44 BUN/Creatinine Ratio 44 % 11/08/19 06:44 Glucose 121 mg/dL (75-100) H 11/08/19 06:44 POC Glucose 115 (70-105) H 11/08/19 11:45 Hemoglobin A1c 6.7 % (4-6) H 11/06/19 20:15 Calcium 8.8 mg/dL (8.4-10.2) 11/08/19 06:44 Total Bilirubin 0.30 mg/dL (0.1-1.2) 11/07/19 08:01 AST 10 units/L (5-40) 11/07/19 08:01 ALT 10 units/L (7-56) 11/07/19 08:01 Alkaline Phosphatase 78 units/L (35-129) 11/07/19 08:01 Troponin T < 0.010 ng/mL (0.00-0.029) 11/06/19 08:22 Total Protein 6.3 g/dL (6.3-8.2) 11/07/19 08:01 Albumin 3.1 g/dL (3.9-5) L 11/07/19 08:01 Albumin/Globulin Ratio 1.0 % 11/07/19 08:01 TSH 1.720 mlU/mL (0.270-4.200) 11/06/19 08:22 Blood Type O POSITIVE 11/06/19 08:22 Antibody Screen Negative 11/06/19 08:22 Active Medications - Current Medications Current Medications: Generic Name Dose Route Start Last Admin Trade Name Freq PRN Reason Stop Dose Admin Acetaminophen 650 mg 11/06/19 20:00 Tylenol PO Q4H PRN Pain MILD(1-3)/Fever >100.5/EPPS Lipase/Protease/Amylase 1 each 11/07/19 10:26 Pancreaze 10,500 Unit FEEDTUBE PRN PRN For Clogged Feeding Tube Sodium Chloride 1,000 mls @ 42 mls/hr 11/06/19 20:00 11/06/19 23:07 Nacl 0.9% 1000 Ml IV 42 mls/hr DIRECT NIKOLAS Administration Pantoprazole Sodium 80 mg/ 100 mls @ 10 mls/hr 11/06/19 21:00 11/08/19 10:06 Sodium Chloride IV 8 mg/hr DIRECT NIKOLAS 10 mls/hr Administration 8 MG/HR Latanoprost 1 drops 11/06/19 22:00 11/07/19 01:11 Latanoprost 0.005% OU 1 drops QHS NIKOLAS Administration Metoclopramide HCl 10 mg 11/06/19 20:00 Reglan IV Q6H PRN Nausea And Vomiting Morphine Sulfate 2 mg 11/06/19 20:00 Morphine IV Q4H PRN Pain, Moderate (4-6) Ondansetron HCl 4 mg 11/06/19 20:00 Zofran IV Q8H PRN Nausea And Vomiting Simple Syrup 15 ml 11/07/19 10:26 Simple Syrup FEEDTUBE PRN PRN Hypoglycemia Simple Syrup 30 ml 11/07/19 10:26 Simple Syrup FEEDTUBE PRN PRN Hypoglycemia Sodium Bicarbonate 325 mg 11/07/19 10:26 Sodium Bicarbonate FEEDTUBE PRN PRN For Clogged Feeding Tube Sodium Chloride 10 ml 11/06/19 22:00 11/08/19 10:09 Sodium Chloride Flush Syringe 10 Ml IV 10 ml BID NIKOLAS Administration Sodium Chloride 10 ml 11/06/19 20:00 Sodium Chloride Flush Syringe 10 Ml IV PRN PRN LINE FLUSH Timolol Maleate 1 drops 11/06/19 22:00 11/08/19 10:10 Timoptic OU 1 drops BID NIKOLAS Administration Nutrition/Malnutrition Assess - Dietary Evaluation Nutrition/Malnutrition Findings: Nutrition Notes Start: 11/07/19 08:50 Freq: Status: Active Protocol: Document 11/07/19 08:50 LM (Rec: 11/07/19 08:56 LM [id number]) Nutrition Notes Need for Assessment generated from: MD Order,laminator hand,MST Initial or Follow up Assessment Current Diagnosis Diabetes,Hypertension,Stroke, Hyperlipidemia Other Pertinent Diagnosis GI bleed, BPH, glaucoma Current Diet NPO Labs/Tests Reviewed Pertinent Medications Reviewed Height 6 ft Weight 77.2 kg [place] Body Weight (kg) 80.90 BMI 23.1 Weight Status Appropriate Subjective/Other Information MD consult for TF. Pt has PEG. RN screen for MST and difficulty chewing. Pt is nonverbal. Chart reviewed from 07/2019. Pt was 72.5 kg, indicating no wt loss. Pt unable to swallow per chart. Burn Absent Trauma Absent GI Symptoms Vomiting,Other Difficulty In Swallowing Current % PO Negligible Minimum of two criteria No #1 Nutrition Diagnosis Inadequate oral intake Etiology Hx CVA, unable to swallow As Evidenced by Signs and Symptoms Pt has PEG, NPO Is patient on ventilator? No Is Patient Ambulatory and/or Out of Bed No REE-([facility]-confined to bed) 1972.452 Calculation Used for Recommendations [facility] Additional Notes Protein: 62-77g (0.8-1g/kg) Fluid: 1 ml/kcal Nutrition Intervention Change Diet Order: TF Nutrition Support: Glucerna 1.2 at 65 ml/hr Flush 100 ml q4h Kcal 1,872 Protein (gm) 94 Fluid (mL) 1,256 Goal #1 TF start/tolerance Anticipated Discharge Needs: TF Follow-Up By: 11/08/19 Additional Comments F/U for TF start/tolerance
[2019-11-08 16:34] LABS: Hematocrit 25.5 % (35.5-45.6); Hemoglobin 8.1 gm/dl (11.8-15.2)
[2019-11-08] MEDS: LATANOPROST 0.005% OPHTH SOLN 2.5 ML OU SCH (21:16)
[2019-11-09] MEDS: SODIUM CHLORIDE 0.9% 1000 ML 1,000 ML IV SCH (01:01)
[2019-11-09] MEDS: PANTOPRAZOLE 80 MG in SODIUM CHLORIDE 0.9% 100 ML IV SCH ×2 (01:01→16:43)
[2019-11-09 07:49] LABS: Hematocrit 24.2 % (35.5-45.6); Hemoglobin 7.9 gm/dl (11.8-15.2); Mean Corpuscular HGB Conc 33 % (32-34); Mean Corpuscular Volume 80 fl (84-94); Platelet Count 182 K/mm3 (140-440); Red Blood Count 3.03 M/mm3 (3.65-5.03); Red Cell Distribution Width 16.9 % (13.2-15.2)
[2019-11-09 08:37] LABS: BUN/Creatinine Ratio 38; Blood Urea Nitrogen 19 mg/dL (9-20); Calcium 8.6 mg/dL (8.4-10.2); Hemolysis Index 1
[2019-11-09] MEDS: TIMOLOL 0.5% OPHTH SOLN 5 ML OU SCH ×2 (11:07→22:12)
--- NOTE | 2019-11-09 11:11 | Gastroenterology Progress Note ---
Assessment and Plan 1. Upper GI bleed 2. History of gastric ulcer 3. Oropharyngeal dysphagia with PEG tube 4. History of h pylori (s/p tx) -H/H 7.9/24.2-trending down -continue to monitor H/H and transfuse as needed -BM x 1 overnight with black stool per nursing. No active signs of bleeding this am. Currently HD stable. -s/p EGD 11/07/19 that showed cratered ulcer at incisura with heme spots and one area of oozing (s/p clip placement) -will schedule for repeat EGD tomorrow -NPO after MN -continue protonix -continue to trend labs and supportive care -will follow Subjective Date of service: 11/09/19 Principal diagnosis: GI bleed Interval history: BM x 1 overnight with black stool. No active signs of bleeding per nursing overnight or this am. Tolerating TFs. Objective - Constitutional Vitals: Temp Pulse Resp BP Pulse Ox 98.1 F 80 18 119/74 98 11/09/19 05:02 11/09/19 05:02 11/09/19 05:02 11/09/19 05:02 11/09/19 05:02 General appearance: no acute distress - Respiratory Respiratory effort: normal - Cardiovascular Rhythm: regular - Gastrointestinal General gastrointestinal: Present: soft, non-distended, normal bowel sounds - Neurologic Neurological: other (nonverbal) - Labs CBC & Chem 7: 11/09/19 07:22 11/09/19 07:22 Labs: Laboratory Results - last 24 hr 11/08/19 11/08/19 11/08/19 11:45 16:13 16:35 WBC RBC Hgb 8.1 L Hct 25.5 L MCV MCH MCHC RDW Plt Count Sodium Potassium Chloride Carbon Dioxide Anion Gap BUN Creatinine Estimated GFR BUN/Creatinine Ratio Glucose POC Glucose 115 H 99 Calcium 11/08/19 11/09/19 11/09/19 21:10 00:41 06:38 WBC RBC Hgb Hct MCV MCH MCHC RDW Plt Count Sodium Potassium Chloride Carbon Dioxide Anion Gap BUN Creatinine Estimated GFR BUN/Creatinine Ratio Glucose POC Glucose 90 89 128 H Calcium 11/09/19 11/09/19 07:22 07:22 WBC 5.4 RBC 3.03 L Hgb 7.9 L Hct 24.2 L MCV 80 L MCH 26 L MCHC 33 RDW 16.9 H Plt Count 182 Sodium 147 H Potassium 3.7 Chloride 112.5 H Carbon Dioxide 21 L Anion Gap 17 BUN 19 Creatinine 0.5 L Estimated GFR > 60 BUN/Creatinine Ratio 38 Glucose 122 H POC Glucose Calcium 8.6
--- NOTE | 2019-11-09 12:51 | Progress Note ---
Assessment and Plan Assessment and plan: Patient is a 54-year-old -Italian man from [facility] with a history of CVA with left-sided hemiplegia/aphasia/dysphagia s/p PEG tube, hyperlipidemia, hypertension, insulin dependent diabetes mellitus type 2, BPH and Glaucoma who presented to [facility] ED with vomiting blood this morning. Patient underwent EGD that which showed a bleeding gastric ulcer s/p clip placed Acute GI blood loss anemia due to PUD: treat with PPI, gastric rest PUD: on Protonix IV continuous drip Drop in Hemoglobin/hemocrit: repeat EGD in AM per GI Moderate protein calorie malnutrition: Staff Anesthetist consulted Diabetes mellitus type 2: ssi, ada tube feeding Hypertension h/o BPH (benign prostatic hyperplasia) h/o HLD (hyperlipidemia) h/o CVA per history with profound encephalopathy full code DVT ppx scd only due to GIB Disposition: continue inpatient care until h/h is hemodynamically stable. repeat EGD in AM History Interval history: Patient was seen and examined. Follow-up on current diagnosis of GIB. Overnight uneventful as no events directly reported to me. Patient dysarthric. Imaging, nursing note, chart, labs and old chart reviewed. Discussed with patient. Hospitalist Physical - Physical exam Narrative exam: Gen: thin frail chronically disable appearing, WDWN, NAD, Awake, HEENT: NCAT, EOMI, PERRL, OP Clear Neck: supple, no adenopathy, no thyromegaly, no JVD CVS/Heart: RRR, normal S1S2, pulses present bilaterally Chest/Lungs: CTA B, Symmetrical chest expansion, good air entry bilaterally GI/Abdomen: soft, epigastric tenderness, good bowel sounds, no guarding or rebound /Bladder: no suprapubic tenderness, no CVA or paraspinal tenderness Extermity/Skin: no c/c/e, no obvious rash MSK: FROM x 3 Neuro: CN 2-12 grossly intact except speech, no new focal deficits Psych: calm - Constitutional Vitals: Temp Pulse Resp BP Pulse Ox 98.3 F 82 18 131/70 97 11/09/19 11:34 11/09/19 11:34 11/09/19 11:34 11/09/19 11:34 11/09/19 11:34 Results - Labs CBC & Chem 7: 11/09/19 07:22 11/09/19 07:22 Labs: Laboratory Last Values WBC 5.4 K/mm3 (4.5-11.0) 11/09/19 07:22 RBC 3.03 M/mm3 (3.65-5.03) L 11/09/19 07:22 Hgb 7.9 gm/dl (11.8-15.2) L 11/09/19 07:22 Hct 24.2 % (35.5-45.6) L 11/09/19 07:22 MCV 80 fl (84-94) L 11/09/19 07:22 MCH 26 pg (28-32) L 11/09/19 07:22 MCHC 33 % (32-34) 11/09/19 07:22 RDW 16.9 % (13.2-15.2) H 11/09/19 07:22 Plt Count 182 K/mm3 (140-440) 11/09/19 07:22 Lymph % (Auto) 30.3 % (13.4-35.0) 11/07/19 08:01 [place] % (Auto) 9.2 % (0.0-7.3) H 11/07/19 08:01 Eos % (Auto) 5.9 % (0.0-4.3) H 11/07/19 08:01 Baso % (Auto) 0.4 % (0.0-1.8) 11/07/19 08:01 Lymph # 2.1 K/mm3 (1.2-5.4) 11/07/19 08:01 [place] # 0.6 K/mm3 (0.0-0.8) 11/07/19 08:01 Eos # 0.4 K/mm3 (0.0-0.4) 11/07/19 08:01 Baso # 0.0 K/mm3 (0.0-0.1) 11/07/19 08:01 Seg Neutrophils % 54.2 % (40.0-70.0) 11/07/19 08:01 Seg Neutrophils # 3.7 K/mm3 (1.8-7.7) 11/07/19 08:01 PT 14.9 Sec. (12.2-14.9) 11/06/19 08:22 INR 1.15 (0.87-1.13) H 11/06/19 08:22 APTT 26.2 Sec. (24.2-36.6) 11/06/19 08:22 Sodium 147 mmol/L (137-145) H 11/09/19 07:22 Potassium 3.7 mmol/L (3.6-5.0) 11/09/19 07:22 Chloride 112.5 mmol/L (98-107) H 11/09/19 07:22 Carbon Dioxide 21 mmol/L (22-30) L 11/09/19 07:22 Anion Gap 17 mmol/L 11/09/19 07:22 BUN 19 mg/dL (9-20) 11/09/19 07:22 Creatinine 0.5 mg/dL (0.8-1.5) L 11/09/19 07:22 Estimated GFR > 60 ml/min 11/09/19 07:22 BUN/Creatinine Ratio 38 % 11/09/19 07:22 Glucose 122 mg/dL (75-100) H 11/09/19 07:22 POC Glucose 130 (70-105) H 11/09/19 11:20 Hemoglobin A1c 6.7 % (4-6) H 11/06/19 20:15 Calcium 8.6 mg/dL (8.4-10.2) 11/09/19 07:22 Total Bilirubin 0.30 mg/dL (0.1-1.2) 11/07/19 08:01 AST 10 units/L (5-40) 11/07/19 08:01 ALT 10 units/L (7-56) 11/07/19 08:01 Alkaline Phosphatase 78 units/L (35-129) 11/07/19 08:01 Troponin T < 0.010 ng/mL (0.00-0.029) 11/06/19 08:22 Total Protein 6.3 g/dL (6.3-8.2) 11/07/19 08:01 Albumin 3.1 g/dL (3.9-5) L 11/07/19 08:01 Albumin/Globulin Ratio 1.0 % 11/07/19 08:01 TSH 1.720 mlU/mL (0.270-4.200) 11/06/19 08:22 Blood Type O POSITIVE 11/06/19 08:22 Antibody Screen Negative 11/06/19 08:22 Active Medications - Current Medications Current Medications: Generic Name Dose Route Start Last Admin Trade Name Freq PRN Reason Stop Dose Admin Acetaminophen 650 mg 11/06/19 20:00 Tylenol PO Q4H PRN Pain MILD(1-3)/Fever >100.5/EPPS Lipase/Protease/Amylase 1 each 11/07/19 10:26 Pancreamber [place] 10,500 Unit FEEDTUBE PRN PRN For Clogged Feeding Tube Sodium Chloride 1,000 mls @ 42 mls/hr 11/06/19 20:00 11/09/19 01:01 Nacl 0.9% 1000 Ml IV 42 mls/hr DIRECT NIKOLAS Administration Pantoprazole Sodium 80 mg/ 100 mls @ 10 mls/hr 11/06/19 21:00 11/09/19 01:01 Sodium Chloride IV 8 mg/hr DIRECT NIKOLAS 10 mls/hr Administration 8 MG/HR Latanoprost 1 drops 11/06/19 22:00 11/08/19 21:16 Latanoprost 0.005% OU 1 drops QHS NIKOLAS Administration Metoclopramide HCl 10 mg 11/06/19 20:00 Reglan IV Q6H PRN Nausea And Vomiting Morphine Sulfate 2 mg 11/06/19 20:00 Morphine IV Q4H PRN Pain, Moderate (4-6) Ondansetron HCl 4 mg 11/06/19 20:00 Zofran IV Q8H PRN Nausea And Vomiting Simple Syrup 15 ml 11/07/19 10:26 Simple Syrup FEEDTUBE PRN PRN Hypoglycemia Simple Syrup 30 ml 11/07/19 10:26 Simple Syrup FEEDTUBE PRN PRN Hypoglycemia Sodium Bicarbonate 325 mg 11/07/19 10:26 Sodium Bicarbonate FEEDTUBE PRN PRN For Clogged Feeding Tube Sodium Chloride 10 ml 11/06/19 22:00 11/09/19 11:06 Sodium Chloride Flush Syringe 10 Ml IV 10 ml BID NIKOLAS Administration Sodium Chloride 10 ml 11/06/19 20:00 Sodium Chloride Flush Syringe 10 Ml IV PRN PRN LINE FLUSH Timolol Maleate 1 drops 11/06/19 22:00 11/09/19 11:07 Timoptic OU 1 drops BID NIKOLAS Administration Nutrition/Malnutrition Assess - Dietary Evaluation Nutrition/Malnutrition Findings: Nutrition Notes Start: 11/07/19 08:50 Freq: Status: Active Protocol: Document 11/09/19 10:48 CW (Rec: 11/09/19 11:14 CW [id number]) Co-Sign 11/09/19 10:48 LP Nutrition Notes Initial or Follow up Reassessment Current Diagnosis Diabetes,Hypertension,Stroke, Hyperlipidemia Other Pertinent Diagnosis GI bleed, BPH Current Diet Glucerna 1.2 Labs/Tests Na 147 BG 122 HgbA1c 6.7 Pertinent Medications NS at 42 ml/hr Reglan Height 6 ft Weight 72 kg [place] Body Weight (kg) 80.90 BMI 21.5 Weight change and time frame Wt change noted. Weight Status Appropriate Subjective/Other Information F/U for TF initiation. Pt D/C held d/t continued GI bleed. TF running at 45 ml/hr. Per pt charts, pt weighed 72.5 kg in 07/2019. Hence, pt currently at normal weight. Percent of energy/protein needs met: 68%/ 100% Burn Absent Trauma Absent GI Symptoms Vomiting,Other Difficulty In Swallowing Current % PO Negligible Minimum of two criteria No physical signs of malnutrition #1 Nutrition Diagnosis Inadequate oral intake Diagnosis Progress(for reassessment Continues documentation) Is patient on ventilator? No Is Patient Ambulatory and/or Out of Bed No REE-([facility]-confined to bed) 1910.112 Calculation Used for Recommendations [facility] Additional Notes Protein: 62-77g (0.8-1g/kg) Fluid: 1 ml/kcal Nutrition Intervention Change Diet Order: TF Nutrition Support: Glucerna 1.2 at 65 ml/hr Flush 100 ml q4h Kcal 1,872 Protein (gm) 94 Fluid (mL) 1,256 Goal #1 Meet at least 75% of kcal/pro needs via TF Goal #2 Weight Maintenance Anticipated Discharge Needs: TF Follow-Up By: 11/11/19 Additional Comments F/U TF tolerance and weight maintenance
[2019-11-09] MEDS: LATANOPROST 0.005% OPHTH SOLN 2.5 ML OU SCH (22:13)
[2019-11-10] MEDS: PANTOPRAZOLE 80 MG in SODIUM CHLORIDE 0.9% 100 ML IV SCH (04:39)
[2019-11-10] MEDS ORDERED: SODIUM CHLORIDE 0.9% 1000 ML 1,000 ML IV SCH (08:00)
--- NOTE | 2019-11-10 08:52 | Anesthesia Consultation ---
Anesthesia Consult and Med Hx Date of service: 11/10/19 - Airway Anesthetic Teeth Evaluation: Poor ROM Head & Neck: Inadequate Mental/Hyoid Distance: Inadequate Mallampati Class: Class IV Intubation Access Assessment: Possibly Difficult - Pre-Operative Health Status ASA Pre-Surgery Classification: ASA3 Proposed Anesthetic Plan: MAC - Pulmonary Hx Smoking: Yes COPD: Yes - Cardiovascular System Hx Hypertension: Yes - Central Nervous System CVA: Yes Hx Psychiatric Problems: Yes - Endocrine Hx Non-Insulin Dependent Diabetes: Yes - Hematic Hx Anemia: Yes - Other Systems Hx Cancer: No - Additional Comments Anesthesia Medical History Comments: 54-year-old -Gabones[place] male presents to the ED via EMS from [facility] after he was found vomiting blood yesterday AM. The patient has a past medical history of CVA with left-sided hemiparesis, HLD, HTN, IDDM, BPH. He is nonverbal at baseline and has a feeding tube in place. The patient does respond to some things with nodding and gestures but overall is a poor historian. The patient also presents with some tachycardia with a heart rate of about 140. Additional medical history: shortness of breath, muscle weakness, abnormalities of gait and mobility, BPH,ENCEPHALOPATHY FX FEMUR KIDNEY FAILURE ANEMIA GLAUCOMA PSYCHOTIC DISORDER- Schizophrenia. I spoke with patient's mother who gave phone consent.
--- NOTE | 2019-11-10 08:53 | Anesthesia Day of Surgery ---
Anesthesia Day of Surgery - Day of Surgery Patient Examined: Yes Patient H&P Reviewed: Yes Patient is NPO: Yes Beta Blockers: No
--- NOTE | 2019-11-10 09:03 | Anesthesia Consultation ---
Anesthesia Consult and Med Hx - Pulmonary Hx Smoking: Yes COPD: Yes - Cardiovascular System Hx Hypertension: Yes - Central Nervous System CVA: Yes Hx Psychiatric Problems: Yes - Endocrine Hx Non-Insulin Dependent Diabetes: Yes - Hematic Hx Anemia: Yes - Other Systems Hx Cancer: No - Additional Comments Anesthesia Medical History Comments: 54-year-old -[place] male presents to the ED via EMS from [facility] after he was found vomiting blood yesterday AM. The patient has a past medical history of CVA with left-sided hemiparesis, HLD, HTN, IDDM, BPH. He is nonverbal at baseline and has a feeding tube in place. The patient does respond to some things with nodding and gestures but overall is a poor historian. The patient also presents with some tachycardia with a heart rate of about 140. Additional medical history: shortness of breath, muscle weakness, abnormalities of gait and mobility, BPH,ENCEPHALOPATHY FX FEMUR KIDNEY FAILURE ANEMIA GLAUCOMA PSYCHOTIC DISORDER- Schizophrenia. I spoke with patient's mother who gave phone consent.
[2019-11-10] MEDS ORDERED: propofoL 200 MG/20 ML VIAL IV ONE (11:50)
--- NOTE | 2019-11-10 12:12 | Operative Report ---
Operative Report Operative Report: Esophagogastroduodenoscopy Procedure Note with biopsies Date of procedure: 11/10/2019 Endoscopist: Arsh Ruff Pre-op diagnosis/indication: Upper GI bleed Post-op diagnosis: Clean based gastric ulcer, esophagitis MEDICATIONS: MAC COMPLICATIONS: No immediate complications ESTIMATED BLOOD LOSS: Minimal DESCRIPTION OF PROCEDURE: After consent was obtained from the patient's mother, the patient was placed in the left lateral decubitis position. The olympus endoscope was inserted into the patient's mouth under direct vision and advanced to the 2nd portion of the duodenum without difficulty. The patient tolerated the procedure well. The views of the mucosa were good. The patient's vital signs were monitored continuously throughout the procedure. FINDINGS: There was esophagitis in the lower third of the esophagus. Clean based ulcer in the incisura of the stomach. Recent clip was seen intact. No high risk bleeding lesions. Biopsies were obtained from around the ulcer. Internal bumper of peg tube again seen in the stomach. The duodenum appeared normal. IMPRESSION: 1. Clean based gastric ulcer. Biopsied. 2. Esophagitis RECOMMENDATIONS: -switch to PPI via PEG tube BID dosing -follow-up pathology -okay to resume tube feeds Will sign off, please call as needed or with questions.
[2019-11-10] MEDS: TIMOLOL 0.5% OPHTH SOLN 5 ML OU SCH ×2 (13:13→21:10)
--- NOTE | 2019-11-10 14:12 | Progress Note ---
Assessment and Plan Assessment and plan: Patient is a 54-year-old -[place] man from [facility] with a history of CVA with left-sided hemiplegia/aphasia/dysphagia s/p PEG tube, hyperlipidemia, hypertension, insulin dependent diabetes mellitus type 2, BPH and Glaucoma who presented to [facility] ED with vomiting blood this morning. Patient underwent EGD that which showed a bleeding gastric ulcer s/p clip placed EGD #2 Date of procedure: 11/10/2019 Endoscopist: Arsh Ruff FINDINGS: There was esophagitis in the lower third of the esophagus. Clean based ulcer in the incisura of the stomach. Recent clip was seen intact. No high risk bleeding lesions. Biopsies were obtained from around the ulcer. Internal bumper of peg tube again seen in the stomach. The duodenum appeared normal. IMPRESSION: 1. Clean based gastric ulcer. Biopsied. 2. Esophagitis RECOMMENDATIONS: -switch to PPI via PEG tube BID dosing -follow-up pathology - okay to resume tube feeds Will sign off, please call as needed or with questions. Acute GI blood loss anemia due to PUD: treat with PPI, gastric rest PUD: on Protonix IV continuous drip Drop in Hemoglobin/hemocrit: repeat EGD in AM per GI Moderate protein calorie malnutrition: Sign Carpenter consulted Diabetes mellitus type 2: ssi, ada tube feeding Hypertension h/o BPH (benign prostatic hyperplasia) h/o HLD (hyperlipidemia) h/o CVA per history with profound encephalopathy full code DVT ppx scd only due to GIB Disposition: continue inpatient care until h/h is hemodynamically stable. repeated EGD today==>back to [facility] History Interval history: Patient was seen and examined. Follow-up on current diagnosis of GIB. Overnight uneventful as no events directly reported to me. Patient dysarthric. Imaging, nursing note, chart, labs and old chart reviewed. Discussed with patient. Hospitalist Physical - Physical exam Narrative exam: Gen: thin frail chronically disable appearing, WDWN, NAD, Awake, HEENT: NCAT, EOMI, PERRL, OP Clear Neck: supple, no adenopathy, no thyromegaly, no JVD CVS/Heart: RRR, normal S1S2, pulses present bilaterally Chest/Lungs: CTA B, Symmetrical chest expansion, good air entry bilaterally GI/Abdomen: soft, epigastric tenderness, good bowel sounds, no guarding or rebound /Bladder: no suprapubic tenderness, no CVA or paraspinal tenderness Extermity/Skin: no c/c/e, no obvious rash MSK: FROM x 3 Neuro: CN 2-12 grossly intact except speech, no new focal deficits Psych: calm - Constitutional Vitals: Temp Pulse Resp BP Pulse Ox 97.7 F 72 18 125/77 97 11/10/19 13:17 11/10/19 13:17 11/10/19 13:17 11/10/19 13:17 11/10/19 13:17 General appearance: Absent: mild distress, well-nourished Results - Labs CBC & Chem 7: 11/09/19 07:22 11/09/19 07:22 Labs: Laboratory Last Values WBC 5.4 K/mm3 (4.5-11.0) 11/09/19 07:22 RBC 3.03 M/mm3 (3.65-5.03) L 11/09/19 07:22 Hgb 7.9 gm/dl (11.8-15.2) L 11/09/19 07:22 Hct 24.2 % (35.5-45.6) L 11/09/19 07:22 MCV 80 fl (84-94) L 11/09/19 07:22 MCH 26 pg (28-32) L 11/09/19 07:22 MCHC 33 % (32-34) 11/09/19 07:22 RDW 16.9 % (13.2-15.2) H 11/09/19 07:22 Plt Count 182 K/mm3 (140-440) 11/09/19 07:22 Lymph % (Auto) 30.3 % (13.4-35.0) 11/07/19 08:01 [place] % (Auto) 9.2 % (0.0-7.3) H 11/07/19 08:01 Eos % (Auto) 5.9 % (0.0-4.3) H 11/07/19 08:01 Baso % (Auto) 0.4 % (0.0-1.8) 11/07/19 08:01 Lymph # 2.1 K/mm3 (1.2-5.4) 11/07/19 08:01 [place] # 0.6 K/mm3 (0.0-0.8) 11/07/19 08:01 Eos # 0.4 K/mm3 (0.0-0.4) 11/07/19 08:01 Baso # 0.0 K/mm3 (0.0-0.1) 11/07/19 08:01 Seg Neutrophils % 54.2 % (40.0-70.0) 11/07/19 08:01 Seg Neutrophils # 3.7 K/mm3 (1.8-7.7) 11/07/19 08:01 PT 14.9 Sec. (12.2-14.9) 11/06/19 08:22 INR 1.15 (0.87-1.13) H 11/06/19 08:22 APTT 26.2 Sec. (24.2-36.6) 11/06/19 08:22 Sodium 147 mmol/L (137-145) H 11/09/19 07:22 Potassium 3.7 mmol/L (3.6-5.0) 11/09/19 07:22 Chloride 112.5 mmol/L (98-107) H 11/09/19 07:22 Carbon Dioxide 21 mmol/L (22-30) L 11/09/19 07:22 Anion Gap 17 mmol/L 11/09/19 07:22 BUN 19 mg/dL (9-20) 11/09/19 07:22 Creatinine 0.5 mg/dL (0.8-1.5) L 11/09/19 07:22 Estimated GFR > 60 ml/min 11/09/19 07:22 BUN/Creatinine Ratio 38 % 11/09/19 07:22 Glucose 122 mg/dL (75-100) H 11/09/19 07:22 POC Glucose 125 (70-105) H 11/10/19 05:42 Hemoglobin A1c 6.7 % (4-6) H 11/06/19 20:15 Calcium 8.6 mg/dL (8.4-10.2) 11/09/19 07:22 Total Bilirubin 0.30 mg/dL (0.1-1.2) 11/07/19 08:01 AST 10 units/L (5-40) 11/07/19 08:01 ALT 10 units/L (7-56) 11/07/19 08:01 Alkaline Phosphatase 78 units/L (35-129) 11/07/19 08:01 Troponin T < 0.010 ng/mL (0.00-0.029) 11/06/19 08:22 Total Protein 6.3 g/dL (6.3-8.2) 11/07/19 08:01 Albumin 3.1 g/dL (3.9-5) L 11/07/19 08:01 Albumin/Globulin Ratio 1.0 % 11/07/19 08:01 TSH 1.720 mlU/mL (0.270-4.200) 11/06/19 08:22 Blood Type O POSITIVE 11/06/19 08:22 Antibody Screen Negative 11/06/19 08:22 Active Medications - Current Medications Current Medications: Generic Name Dose Route Start Last Admin Trade Name Freq PRN Reason Stop Dose Admin Acetaminophen 650 mg 11/06/19 20:00 Tylenol PO Q4H PRN Pain MILD(1-3)/Fever >100.5/EPPS Lipase/Protease/Amylase 1 each 11/07/19 10:26 Pancreaze 10,500 Unit FEEDTUBE PRN PRN For Clogged Feeding Tube Sodium Chloride 1,000 mls @ 42 mls/hr 11/06/19 20:00 11/09/19 01:01 Nacl 0.9% 1000 Ml IV 42 mls/hr DIRECT NIKOLAS Administration Pantoprazole Sodium 80 mg/ 100 mls @ 10 mls/hr 11/06/19 21:00 11/10/19 04:39 Sodium Chloride IV 8 mg/hr DIRECT NIKOLAS 10 mls/hr Administration 8 MG/HR Sodium Chloride 1,000 mls @ 50 mls/hr 11/10/19 08:00 11/10/19 09:05 Nacl 0.9% 1000 Ml IV 11/11/19 07:59 50 mls/hr DIRECT NIKOLAS Administration Latanoprost 1 drops 11/06/19 22:00 11/09/19 22:13 Latanoprost 0.005% OU 1 drops QHS NIKOLAS Administration Metoclopramide HCl 10 mg 11/06/19 20:00 Reglan IV Q6H PRN Nausea And Vomiting Morphine Sulfate 2 mg 11/06/19 20:00 Morphine IV Q4H PRN Pain, Moderate (4-6) Ondansetron HCl 4 mg 11/06/19 20:00 Zofran IV Q8H PRN Nausea And Vomiting Simple Syrup 15 ml 11/07/19 10:26 Simple Syrup FEEDTUBE PRN PRN Hypoglycemia Simple Syrup 30 ml 11/07/19 10:26 Simple Syrup FEEDTUBE PRN PRN Hypoglycemia Sodium Bicarbonate 325 mg 11/07/19 10:26 Sodium Bicarbonate FEEDTUBE PRN PRN For Clogged Feeding Tube Sodium Chloride 10 ml 11/06/19 22:00 11/10/19 13:11 Sodium Chloride Flush Syringe 10 Ml IV Not Given BID NIKOLAS Sodium Chloride 10 ml 11/06/19 20:00 Sodium Chloride Flush Syringe 10 Ml IV PRN PRN LINE FLUSH Timolol Maleate 1 drops 11/06/19 22:00 11/10/19 13:13 Timoptic OU 1 drops BID NIKOLAS Administration Nutrition/Malnutrition Assess - Dietary Evaluation Nutrition/Malnutrition Findings: Nutrition Notes Start: 11/07/19 08:50 Freq: Status: Active Protocol: Document 11/09/19 10:48 CW (Rec: 11/09/19 11:14 CW [id number]) Co-Sign 11/09/19 10:48 LP Nutrition Notes Initial or Follow up Reassessment Current Diagnosis Diabetes,Hypertension,Stroke, Hyperlipidemia Other Pertinent Diagnosis GI bleed, BPH Current Diet Glucerna 1.2 at 65ml/hr Labs/Tests Na 147 BG 122 HgbA1c 6.7 Pertinent Medications NS at 42 ml/hr Reglan Height 6 ft Weight 72 kg [place] Body Weight (kg) 80.90 BMI 21.5 Weight change and time frame Wt change noted. Weight Status Appropriate Subjective/Other Information F/U for TF initiation. Pt D/C held d/t continued GI bleed. TF running at 45 ml/hr. Per pt charts, pt weighed 72.5 kg in 07/2019. Hence, pt currently at normal weight. Percent of energy/protein needs met: 68%/ 100% Burn Absent Trauma Absent GI Symptoms Vomiting,Other Difficulty In Swallowing Current % PO Negligible Minimum of two criteria No physical signs of malnutrition #1 Nutrition Diagnosis Inadequate oral intake Diagnosis Progress(for reassessment Continues documentation) Is patient on ventilator? No Is Patient Ambulatory and/or Out of Bed No REE-([facility]-confined to bed) 0.112 Calculation Used for Recommendations [place] Additional Notes Protein: 62-77g (0.8-1g/kg) Fluid: 1 ml/kcal Nutrition Intervention Change Diet Order: TF Nutrition Support: Glucerna 1.2 at 65 ml/hr Change flush to 200 ml q4h for hypernatremia. Water flush of 100 ml q4h once resolved Kcal 1,872 Protein (gm) 94 Fluid (mL) 1,256 Goal #1 Meet at least 75% of kcal/pro needs via TF Anticipated Discharge Needs: TF Follow-Up By: 11/11/19 Additional Comments F/U TF tolerance, Na labs
[2019-11-10 18:21] LABS: Hematocrit 24.9 % (35.5-45.6); Hemoglobin 8.1 gm/dl (11.8-15.2)
[2019-11-10] MEDS: PANTOPRAZOLE 40 MG INJ IV SCH (21:11)
[2019-11-10] MEDS: SODIUM CHLORIDE 0.9% 1000 ML 1,000 ML IV SCH (21:58)
[2019-11-11 04:33] LABS: Hematocrit 25.2 % (35.5-45.6); Hemoglobin 8.2 gm/dl (11.8-15.2); Mean Corpuscular HGB Conc 33 % (32-34); Mean Corpuscular Volume 80 fl (84-94); Platelet Count 225 K/mm3 (140-440); Red Blood Count 3.16 M/mm3 (3.65-5.03); Red Cell Distribution Width 17.3 % (13.2-15.2)
[2019-11-11 04:53] LABS: BUN/Creatinine Ratio 25; Blood Urea Nitrogen 15 mg/dL (9-20); Calcium 8.8 mg/dL (8.4-10.2); Hemolysis Index 1
[2019-11-11] MEDS ORDERED: SODIUM BICARBONATE 325 MG TAB FEEDTUBE PRN (07:57)
[2019-11-11] MEDS ORDERED: SIMPLE SYRUP 15 ML FEEDTUBE PRN (07:57)
[2019-11-11] MEDS ORDERED: LIPASE 10,500/PROTEASE 25,000/AMYLASE 43,750 (UNITS) DR CAP FEEDTUBE PRN (07:57)
[2019-11-11] MEDS: PANTOPRAZOLE 40 MG INJ IV SCH (10:10)
[2019-11-11] MEDS: TIMOLOL 0.5% OPHTH SOLN 5 ML OU SCH (10:13)
--- NOTE | 2019-11-11 18:22 | Progress Note ---
Assessment and Plan Acute GI blood loss anemia due to PUD: treat with PPI, gastric rest Gastric ulcer--Clipped--No bleeding PEG tube feedings resumed PUD: on Protonix IV continuous drip Drop in Hemoglobin/hemocrit: repeat EGD in AM per GI Moderate protein calorie malnutrition: Healthcare Account Manager consulted Diabetes mellitus type 2: ssi, ada tube feeding Hypertension h/o BPH (benign prostatic hyperplasia) h/o HLD (hyperlipidemia) h/o CVA per history with profound encephalopathy full code DVT ppx scd only due to GIB Disposition --Diischarge in AM Subjective Date of service: 11/11/19 Principal diagnosis: GI bleed Interval history: Patient is a 54-year-old -[place] man from [facility] with a history of CVA with left-sided hemiplegia/aphasia/dysphagia s/p PEG tube, hy perlipidemia, hypertension, insulin dependent diabetes mellitus type 2, BPH and Glaucoma who presented to [facility] ED with vomiting blood this morning. Patient underwent EGD that which showed a bleeding gastric ulcer s/p clip placed Objective - Constitutional Vitals: Vital Signs - 12hr 11/11/19 11/11/19 12:00 17:06 Temperature 98.6 F 98.9 F Pulse Rate 76 82 Respiratory 22 22 Rate Blood Pressure 136/85 143/94 O2 Sat by Pulse 100 100 Oximetry General appearance: Present: no acute distress, well-nourished - EENT Eyes: PERRL, EOM intact ENT: hearing intact, clear oral mucosa Ears: bilateral: normal - Neck Neck: supple, normal ROM - Respiratory Respiratory effort: normal Respiratory: bilateral: CTA - Breasts Breasts: normal - Cardiovascular Rhythm: regular Heart Sounds: Present: S1 & S2. Absent: gallop, rub Extremities: pulses intact, No edema, normal color, Full ROM - Gastrointestinal General gastrointestinal: Present: soft, non-tender, non-distended, normal bowel sounds - Genitourinary Male genitourinary: normal - Integumentary Integumentary: clear, warm, dry - Musculoskeletal Musculoskeletal: 1, strength equal bilaterally - Neurologic Neurologic: moves all extremities - Psychiatric Psychiatric: memory intact, appropriate mood/affect, intact judgment & insight - Labs CBC & Chem 7: 11/11/19 04:06 11/11/19 04:06 Labs: Abnormal lab results 11/10/19 11/11/19 11/11/19 Range/Units 23:44 04:06 04:06 RBC 3.16 L (3.65-5.03) M/mm3 Hgb 8.2 L (11.8-15.2) gm/dl Hct 25.2 L (35.5-45.6) % MCV 80 L (84-94) fl MCH 26 L (28-32) pg RDW 17.3 H (13.2-15.2) % Chloride 108.4 H (98-107) mmol/L Creatinine 0.6 L (0.8-1.5) mg/dL Glucose 129 H (75-100) mg/dL POC Glucose 115 H (70-105) 11/11/19 11/11/19 11/11/19 Range/Units 05:59 12:13 17:22 RBC (3.65-5.03) M/mm3 Hgb (11.8-15.2) gm/dl Hct (35.5-45.6) % MCV (84-94) fl MCH (28-32) pg RDW (13.2-15.2) % Chloride (98-107) mmol/L Creatinine (0.8-1.5) mg/dL Glucose (75-100) mg/dL POC Glucose 149 H 150 H 147 H (70-105)
--- NOTE | 2019-11-11 18:22 | Discharge Summary ---
Providers - Providers Date of Admission: 11/06/19 20:00 Date of discharge: 11/12/19 Attending physician: ANTONIA VALENCIA 11/06/19 20:00 Consult to Physician [CONS] Routine Comment: BIJU Consulting Provider: ELAINA ARREDONDO Physician Instructions: CONSULT WAS CALLED TO /KELLEY Reason For Exam: GI Bleed 11/07/19 08:14 Consult to Dietitian/Nutrition [CONS] Routine Physician Instructions: Reason For Exam: Reason for Consult: Write/Manage Tube Feeding 11/11/19 07:57 Consult to Dietitian/Nutrition [CONS] Routine Physician Instructions: Assess nutrtn needs, initiate, modify, manage TF Reason For Exam: Reason for Consult: Write/Manage Tube Feeding Reason for Consult: Write/Manage Tube Feeding Primary care physician: SAXOPHONE TEACHER Hospitalization Condition: Fair Hospital course: Patient is a 54-year-old -[place] man from [facility] with a history of CVA with left-sided hemiplegia/aphasia/dysphagia s/p PEG tube, hyperlipidemia, hypertension, insulin dependent diabetes mellitus type 2, BPH and Glaucoma who presented to [facility] ED with vomiting blood this morning. Patient underwent EGD that which showed a bleeding gastric ulcer s/p clip placed Acute GI blood loss anemia due to PUD: treat with PPI, gastric rest Gastric ulcer--Clipped--No bleeding PEG tube feedings resumed PUD: on Protonix IV continuous drip Drop in Hemoglobin/hemocrit: repeat EGD in AM per GI Moderate protein calorie malnutrition: Learning Center Instructor consulted Diabetes mellitus type 2: ssi, ada tube feeding Hypertension h/o BPH (benign prostatic hyperplasia) h/o HLD (hyperlipidemia) h/o CVA per history with profound encephalopathy full code DVT ppx scd only due to GIB Disposition --Diischarge today Disposition: DC/[place]-03 SNF [facility] CERT Core Measure Documentation - Palliative Care Palliative Care/ Comfort Measures: Not Applicable - Core Measures Any of the following diagnoses?: none Exam - Constitutional Vitals: Temp Pulse Resp BP Pulse Ox 98.9 F 82 22 143/94 100 11/11/19 17:06 11/11/19 17:06 11/11/19 17:06 11/11/19 17:06 11/11/19 17:06 General appearance: Present: no acute distress, well-nourished - EENT Eyes: Present: PERRL ENT: hearing intact, clear oral mucosa - Neck Neck: Present: supple, normal ROM - Respiratory Respiratory effort: normal Respiratory: bilateral: CTA - Cardiovascular Heart Sounds: Present: S1 & S2. Absent: rub, click - Extremities Extremities: pulses symmetrical, No edema Peripheral Pulses: within normal limits - Abdominal General gastrointestinal: Present: soft, non-tender, non-distended, normal bowel sounds Male genitourinary: Present: normal - Integumentary Integumentary: Present: clear, warm, dry - Musculoskeletal Musculoskeletal: gait normal, strength equal bilaterally - Psychiatric Psychiatric: appropriate mood/affect, intact judgment & insight - Neurologic Neurologic: CNII-XII intact, moves all extremities Plan Activity: no restrictions Diet: advance as tolerated, other (Peg tube feeding) Follow up with: TATE CHRISTIANSEN MD [Staff Physician] - 7 Days PRIMARY CARE, [Primary Care Provider] - 3-5 Days Forms: Accompanied Note Prescriptions: Pantoprazole [Protonix TAB] 40 mg PO QDAY #30 tablet
[2019-11-12] MEDS: LANSOPRAZOLE 30 MG SOLUTAB FEEDTUBE SCH ×2 (00:33→09:59)
[2019-11-12] MEDS: LATANOPROST 0.005% OPHTH SOLN 2.5 ML OU SCH (00:34)
[2019-11-12] MEDS: TIMOLOL 0.5% OPHTH SOLN 5 ML OU SCH ×2 (00:34→09:59)
[2019-11-12 06:22] VITALS: BP 139/86
== END 2019-11-12 12:08 | DRG 378 ==
LOC: ED 07:38 → 3A 20:00
PROVIDERS: ADMIT Internal Medicine; ATTEND Internal Medicine
PROC: 0W3P8ZZ Control Bleeding in Gastrointestinal Tract, Via Natural or Artificial Opening Endoscopic (ICD-10-PCS; principal; 2019-11-07)
PROC: 0DB68ZX Excision of Stomach, Via Natural or Artificial Opening Endoscopic, Diagnostic (ICD-10-PCS; 2019-11-10)
DX: K25.4 Chronic or unspecified gastric ulcer with hemorrhage (principal); E44.0 Moderate protein-calorie malnutrition; D62 Acute posthemorrhagic anemia; I69.354 Hemiplegia and hemiparesis following cerebral infarction affecting left non-dominant side; E11.8 Type 2 diabetes mellitus with unspecified complications; N40.0 Benign prostatic hyperplasia without lower urinary tract symptoms; I10 Essential (primary) hypertension; F17.200 Nicotine dependence, unspecified, uncomplicated; K20.9 Esophagitis, unspecified; J44.9 Chronic obstructive pulmonary disease, unspecified; E86.0 Dehydration; R13.12 Dysphagia, oropharyngeal phase; R00.0 Tachycardia, unspecified; K21.9 Gastro-esophageal reflux disease without esophagitis; E78.2 Mixed hyperlipidemia; Z88.0 Allergy status to penicillin; Z93.1 Gastrostomy status; Z68.21 Body mass index [BMI] 21.0-21.9, adult; Z79.4 Long term (current) use of insulin; Z79.899 Other long term (current) drug therapy
CPT/HCPCS: 36415; 74022; 80048; 80053; 82962; 83036; 84443; 84484; 85014; 85018; 85025; 85027; 85610; 85730; 86850; 86900; 86901; 87116; 88305; 88342; 93005; 93010; 96360; 96361; G0378; C9113; J2704; J7030

== ENCOUNTER 2019-12-19 07:59 | Inpatient (IN) | payer MEDICAID ==
[2019-12-19] MEDS ORDERED: SODIUM CHLORIDE 0.9% 1000 ML 1,000 ML IV ONE (08:48)
[2019-12-19] MEDS ORDERED: PANTOPRAZOLE 40 MG INJ IV ONE (08:48)
--- NOTE | 2019-12-19 08:57 | Emergency Department Report ---
ED General Adult HPI - General Stated complaint: GI BLEED Time Seen by Provider: 12/19/19 08:47 - History of Present Illness Initial comments: Patient presents to the emergency department from a local group home for dark blood per rectum. Patient is nonverbal and not able to help with the history and physical. Plan the patient arrived into the emergency department and placed into a room he had projectile vomiting that was coffee-ground in nature with huge clots. Patient's blood pressure was 70/42 upon arrival. -: Sudden Severity scale (0 -10): 0 Improves with: none Worsens with: none Treatments Prior to Arrival: none - Related Data Home Medications Medication Instructions Recorded Confirmed Last Taken Citalopram Hydrobromide [celeXA] 30 mg PO DAILY 02/07/16 11/06/19 02/06/16 Acetaminophen [Acetaminophen TAB] 650 mg PO Q4HR PRN 01/25/19 11/06/19 Unknown AtorvaSTATin [Lipitor] 20 mg PO QHS 01/25/19 11/06/19 Unknown Insulin Lispro [HumaLOG VIAL] See Protocol SUB-Q BID 01/25/19 11/06/19 Unknown Magnesium Oxide [Mag-Ox] 400 mg PO QDAY 01/25/19 11/06/19 Unknown Quetiapine Fumarate [SEROquel] 50 mg PO TID 01/25/19 11/06/19 Unknown Thiamine [Vitamin B-1] 100 mg PO DAILY 01/25/19 11/06/19 Unknown Timolol 0.5% [Timoptic] 1 drop OU BID 01/25/19 11/06/19 Unknown Ascorbic Acid [Vitamin C] 500 mg PO Q12H 11/06/19 11/06/19 Unknown Bismuth Subsalicylate [Pepto 524 mg PO Q6HR PRN 11/06/19 11/06/19 Unknown Bismol] Ferrous Sulfate [Ferrous Sulfate 450 mg PO BID 11/06/19 11/06/19 Unknown Oral Liq 300 Mg/5 Ml] Latanoprost 0.005% 1 drop OP QHS 11/06/19 11/06/19 Unknown Sodium Bicarbonate 650 mg FEEDTUBE PRN PRN 11/06/19 11/06/19 Unknown lisinopriL [Zestril TAB] 10 mg PO QDAY 11/06/19 11/06/19 Unknown Previous Rx's Medication Instructions Recorded Last Taken Type Insulin Glargine [Lantus VIAL] 45 units SUB-Q QHS units 02/10/19 Unknown Rx Lipase/Protease/Amylase [Pancreaze 1 each FEEDTUBE PRN PRN capsule 02/10/19 Unknown Rx 10,500 Unit] Simple Syrup 15 ml FEEDTUBE PRN PRN oral.liqd 02/10/19 Unknown Rx Pantoprazole [Protonix TAB] 40 mg PO QDAY #30 tablet 11/08/19 Unknown Rx Lansoprazole Solutab [Prevacid 30 mg FEEDTUBE BID tab.rapdis 11/12/19 Unknown Rx Solutab] Allergies Allergy/AdvReac Type Severity Reaction Status Date / Time Penicillins Allergy Unknown Verified 11/06/19 07:48 ED Review of Systems ROS: Stated complaint: GI BLEED Other details as noted in HPI Comment: Unobtainable due to pts medical conditions ED Past Medical Hx - Past Medical History Hx Hypertension: Yes Hx CVA: Yes Hx Diabetes: Yes (Insulin Dependent) Hx GERD: Yes Hx COPD: Yes Additional medical history: shortness of breath, muscle weakness, abnormalities of gait and mobility, BPH,ENCEPHALOPATHY FX FEMUR KIDNEY FAILURE ANEMIA GLAUCOMA PSYCHOTIC DISORDER - Surgical History Additional Surgical History: G TUBE - Social History Smoking Status: Never Smoker - Medications Home Medications: Home Medications Medication Instructions Recorded Confirmed Last Taken Type Citalopram Hydrobromide [celeXA] 30 mg PO DAILY 02/07/16 11/06/19 02/06/16 History Acetaminophen [Acetaminophen TAB] 650 mg PO Q4HR PRN 01/25/19 11/06/19 Unknown History AtorvaSTATin [Lipitor] 20 mg PO QHS 01/25/19 11/06/19 Unknown History Insulin Lispro [HumaLOG VIAL] See Protocol SUB-Q BID 01/25/19 11/06/19 Unknown History Magnesium Oxide [Mag-Ox] 400 mg PO QDAY 01/25/19 11/06/19 Unknown History Quetiapine Fumarate [SEROquel] 50 mg PO TID 01/25/19 11/06/19 Unknown History Thiamine [Vitamin B-1] 100 mg PO DAILY 01/25/19 11/06/19 Unknown History Timolol 0.5% [Timoptic] 1 drop OU BID 01/25/19 11/06/19 Unknown History Insulin Glargine [Lantus VIAL] 45 units SUB-Q QHS units 02/10/19 11/06/19 Unknown Rx Lipase/Protease/Amylase [Pancreaze 1 each FEEDTUBE PRN PRN capsule 02/10/19 0 11/06/19 Unknown Rx 10,500 Unit] Simple Syrup 15 ml FEEDTUBE PRN PRN oral.liqd 02/10/19 11/06/19 Unknown Rx Ascorbic Acid [Vitamin C] 500 mg PO Q12H 11/06/19 11/06/19 Unknown History Bismuth Subsalicylate [Pepto 524 mg PO Q6HR PRN 11/06/19 11/06/19 Unknown History Bismol] Ferrous Sulfate [Ferrous Sulfate 450 mg PO BID 11/06/19 11/06/19 Unknown History Oral Liq 300 Mg/5 Ml] Latanoprost 0.005% 1 drop OP QHS 11/06/19 11/06/19 Unknown History Sodium Bicarbonate 650 mg FEEDTUBE PRN PRN 11/06/19 11/06/19 Unknown History lisinopriL [Zestril TAB] 10 mg PO QDAY 11/06/19 11/06/19 Unknown History Pantoprazole [Protonix TAB] 40 mg PO QDAY #30 tablet 11/08/19 Unknown Rx Lansoprazole Solutab [Prevacid 30 mg FEEDTUBE BID tab.rapdis 11/12/19 Unknown Rx Solutab] ED Physical Exam - General Limitations: Physical Limitation, Other General appearance: obtunded - Head Head exam: Present: atraumatic, normocephalic - Eye Eye exam: Present: normal appearance, PERRL Pupils: Present: normal accommodation - ENT ENT exam: Present: mucous membranes dry - Neck Neck exam: Present: normal inspection - Respiratory Respiratory exam: Present: normal lung sounds bilaterally. Absent: respiratory distress - Cardiovascular Cardiovascular Exam: Present: regular rate, normal rhythm, tachycardia - GI/Abdominal GI/Abdominal exam: Present: soft, normal bowel sounds. Absent: distended, tenderness - Extremities Exam Extremities exam: Present: normal inspection - Neurological Exam Neurological exam: Present: other (Patient obtunded upon arrival and immediately intubated thus neurological exam cannot be completed) - Psychiatric Psychiatric exam: Present: other (Not able to assess due to the patient's condition) - Skin Skin exam: Present: warm, dry, intact, normal color. Absent: rash - Central Line Placement Left SC Consent Obtained: emergent situation Time Out Performed: Yes Patient Placed on Monitor/Pulse Ox: Yes Prep: mask, gown, gloves Central Line Prep: Chlorhexidine scrub, sterile drapes applied Ultrasound Used for Placement: No Central Line Lumen Inserted: triple Bloods Obtained for Lab: Yes Central Line Position: good blood return, all ports aspirated, flus, other (Securing device) Dressing Applied: Tegaderm Post Procedure X-Ray: tip of catheter in good p Patient Tolerated Procedure: well Complications: none - Intubation Time Out Performed: Yes Sedative: Etomidate Mg Given: 20 Paralytic: Rocuronium Mg Given: 50 Laryngoscope: other ([place] scope) Size: 3 Assist Device Used: other ([place] scope) ET Tube Size: 8 Tube Secured Depth (cm): 20 Tube Secured Location: lips Tube Placement Confirmation: visualized tube passing t, equal breath sounds bilat, no breath sounds over epi, confirmation by capnometr Patient Tolerated Procedure: well Intubation Complications: none Additional Comments: The ET tube will be advanced 3 cm after review of x-ray and confirmation by radiology ED Medical Decision Making - Lab Data Result diagrams: 12/19/19 09:14 12/19/19 09:14 Lab Results 12/19/19 12/19/19 12/19/19 Range/Units 09:10 09:14 09:14 WBC 12.1 H (4.5-11.0) K/mm3 RBC 4.01 (3.65-5.03) M/mm3 Hgb 10.0 L (11.8-15.2) gm/dl Hct 32.3 L (35.5-45.6) % MCV 81 L (84-94) fl MCH 25 L (28-32) pg MCHC 31 L (32-34) % RDW 17.7 H (13.2-15.2) % Plt Count 334 (140-440) K/mm3 Lymph % (Auto) 14.0 (13.4-35.0) % [place] % (Auto) 7.3 (0.0-7.3) % Eos % (Auto) 0.1 (0.0-4.3) % Baso % (Auto) 0.4 (0.0-1.8) % Lymph # 1.7 (1.2-5.4) K/mm3 [place] # 0.9 H (0.0-0.8) K/mm3 Eos # 0.0 (0.0-0.4) K/mm3 Baso # 0.0 (0.0-0.1) K/mm3 Seg Neutrophils % 78.2 H (40.0-70.0) % Seg Neutrophils # 9.5 H (1.8-7.7) K/mm3 PT 15.3 H (12.2-14.9) Sec. INR 1.19 H (0.87-1.13) APTT 26.4 (24.2-36.6) Sec. Sodium (137-145) mmol/L Potassium (3.6-5.0) mmol/L Chloride (98-107) mmol/L Carbon Dioxide (22-30) mmol/L Anion Gap mmol/L BUN (9-20) mg/dL Creatinine (0.8-1.5) mg/dL Estimated GFR ml/min BUN/Creatinine Ratio % Glucose (75-100) mg/dL POC Glucose (70-105) Lactic Acid (0.7-2.0) mmol/L Calcium (8.4-10.2) mg/dL Magnesium (1.7-2.3) mg/dL Total Bilirubin (0.1-1.2) mg/dL AST (5-40) units/L ALT (7-56) units/L Alkaline Phosphatase (35-129) units/L Ammonia (25-60) umol/L Total Protein (6.3-8.2) g/dL Albumin (3.9-5) g/dL Albumin/Globulin Ratio % Lipase (13-60) units/L Urine Color (Yellow) Urine Turbidity (Clear) Urine pH (5.0-7.0) Ur Specific [place] (1.003-1.030) Urine Protein (Negative) mg/dL Urine Glucose (UA) (Negative) mg/dL Urine Ketones (Negative) mg/dL Urine Blood (Negative) Urine Nitrite (Negative) Urine Bilirubin (Negative) Urine Urobilinogen (<2.0) mg/dL Ur Leukocyte Esterase (Negative) Urine WBC (Auto) (0.0-6.0) /HPF Urine RBC (Auto) (0.0-6.0) /HPF U Epithel Cells (Auto) (0-13.0) /HPF Hyaline Casts /LPF Urine Mucus /HPF Urine Sperm ([employer]) /HPF Blood Type O POSITIVE Antibody Screen Negative 12/19/19 12/19/19 12/19/19 Range/Units 09:14 09:14 09:14 WBC (4.5-11.0) K/mm3 RBC (3.65-5.03) M/mm3 Hgb (11.8-15.2) gm/dl Hct (35.5-45.6) % MCV (84-94) fl MCH (28-32) pg MCHC (32-34) % RDW (13.2-15.2) % Plt Count (140-440) K/mm3 Lymph % (Auto) (13.4-35.0) % [place] % (Auto) (0.0-7.3) % Eos % (Auto) (0.0-4.3) % Baso % (Auto) (0.0-1.8) % Lymph # (1.2-5.4) K/mm3 [place] # (0.0-0.8) K/mm3 Eos # (0.0-0.4) K/mm3 Baso # (0.0-0.1) K/mm3 Seg Neutrophils % (40.0-70.0) % Seg Neutrophils # (1.8-7.7) K/mm3 PT (12.2-14.9) Sec. INR (0.87-1.13) APTT (24.2-36.6) Sec. Sodium 142 (137-145) mmol/L Potassium 3.9 (3.6-5.0) mmol/L Chloride 104.5 (98-107) mmol/L Carbon Dioxide 20 L (22-30) mmol/L Anion Gap 21 mmol/L BUN 55 H (9-20) mg/dL Creatinine 1.4 (0.8-1.5) mg/dL Estimated GFR > 60 ml/min BUN/Creatinine Ratio 39 % Glucose 222 H (75-100) mg/dL POC Glucose (70-105) Lactic Acid 3.10 H* (0.7-2.0) mmol/L Calcium 8.6 (8.4-10.2) mg/dL Magnesium 2.00 (1.7-2.3) mg/dL Total Bilirubin 0.20 (0.1-1.2) mg/dL AST 13 (5-40) units/L ALT 11 (7-56) units/L Alkaline Phosphatase 85 (35-129) units/L Ammonia 35.0 (25-60) umol/L Total Protein 6.6 (6.3-8.2) g/dL Albumin 3.4 L (3.9-5) g/dL Albumin/Globulin Ratio 1.1 % Lipase 49 (13-60) units/L Urine Color (Yellow) Urine Turbidity (Clear) Urine pH (5.0-7.0) Ur Specific [place] (1.003-1.030) Urine Protein (Negative) mg/dL Urine Glucose (UA) (Negative) mg/dL Urine Ketones (Negative) mg/dL Urine Blood (Negative) Urine Nitrite (Negative) Urine Bilirubin (Negative) Urine Urobilinogen (<2.0) mg/dL Ur Leukocyte Esterase (Negative) Urine WBC (Auto) (0.0-6.0) /HPF Urine RBC (Auto) (0.0-6.0) /HPF U Epithel Cells (Auto) (0-13.0) /HPF Hyaline Casts /LPF Urine Mucus /HPF Urine Sperm ([employer]) /HPF Blood Type Antibody Screen 12/19/19 12/19/19 Range/Units 10:02 10:05 WBC (4.5-11.0) K/mm3 RBC (3.65-5.03) M/mm3 Hgb (11.8-15.2) gm/dl Hct (35.5-45.6) % MCV (84-94) fl MCH (28-32) pg MCHC (32-34) % RDW (13.2-15.2) % Plt Count (140-440) K/mm3 Lymph % (Auto) (13.4-35.0) % [place] % (Auto) (0.0-7.3) % Eos % (Auto) (0.0-4.3) % Baso % (Auto) (0.0-1.8) % Lymph # (1.2-5.4) K/mm3 [place] # (0.0-0.8) K/mm3 Eos # (0.0-0.4) K/mm3 Baso # (0.0-0.1) K/mm3 Seg Neutrophils % (40.0-70.0) % Seg Neutrophils # (1.8-7.7) K/mm3 PT (12.2-14.9) Sec. INR (0.87-1.13) APTT (24.2-36.6) Sec. Sodium (137-145) mmol/L Potassium (3.6-5.0) mmol/L Chloride (98-107) mmol/L Carbon Dioxide (22-30) mmol/L Anion Gap mmol/L BUN (9-20) mg/dL Creatinine (0.8-1.5) mg/dL Estimated GFR ml/min BUN/Creatinine Ratio % Glucose (75-100) mg/dL POC Glucose 212 H (70-105) Lactic Acid (0.7-2.0) mmol/L Calcium (8.4-10.2) mg/dL Magnesium (1.7-2.3) mg/dL Total Bilirubin (0.1-1.2) mg/dL AST (5-40) units/L ALT (7-56) units/L Alkaline Phosphatase (35-129) units/L Ammonia (25-60) umol/L Total Protein (6.3-8.2) g/dL Albumin (3.9-5) g/dL Albumin/Globulin Ratio % Lipase (13-60) units/L Urine Color Yellow (Yellow) Urine Turbidity Slightly-cloudy (Clear) Urine pH 5.0 (5.0-7.0) Ur Specific [place] 1.024 (1.003-1.030) Urine Protein 30 mg/dl (Negative) mg/dL Urine Glucose (UA) 50 (Negative) mg/dL Urine Ketones Neg (Negative) mg/dL Urine Blood Neg (Negative) Urine Nitrite Neg (Negative) Urine Bilirubin Neg (Negative) Urine Urobilinogen < 2.0 (<2.0) mg/dL Ur Leukocyte Esterase Neg (Negative) Urine WBC (Auto) 2.0 (0.0-6.0) /HPF Urine RBC (Auto) 1.0 (0.0-6.0) /HPF U Epithel Cells (Auto) < 1.0 (0-13.0) /HPF Hyaline Casts 11 /LPF Urine Mucus 2+ /HPF Urine Sperm Few ([employer]ANT) /HPF Blood Type Antibody Screen - EKG Data -: EKG Interpreted by Me EKG shows normal: sinus rhythm Rate: normal - Radiology Data Radiology results: report reviewed - Medical Decision Making Due to the patient's projectile vomiting of coffee-ground emesis airway protection was done Patient's blood pressure was 70/42 and a central line was placed for fluid and possible blood resuscitation. After half a liter of normal saline the patient systolic blood pressure increased to 104 Patient was given 80 mg of Protonix bolus plus Protonix drip. Spoke with Dr. Ruff of GI and he will see the patient in consultation Critical Care Time: Yes Critical care time in (mins) excluding proc time.: 45 Critical care attestation.: If time is entered above; I have spent that time in minutes in the direct care of this critically ill patient, excluding procedure time. ED Disposition Clinical Impression: Upper GI bleed, Melena Disposition: OP ADMIT IP TO THIS HOSP Is pt being admited?: Yes Does the pt Need Aspirin: No Condition: Critical Referrals: RAISA POE MD [Primary Care Provider] - 3-5 Days
[2019-12-19 09:45] LABS: Basophils % (Auto) 0.4 % (0.0-1.8); Eosinophils % (Auto) 0.1 % (0.0-4.3); Hematocrit 32.3 % (35.5-45.6); Lymphocytes # (Auto) 1.7 K/mm3 (1.2-5.4); Mean Corpuscular HGB Conc 31 % (32-34); Mean Corpuscular Volume 81 fl (84-94); Monocytes # (Auto) 0.9 K/mm3 (0.0-0.8); Monocytes % (Auto) 7.3 % (0.0-7.3); Platelet Count 334 K/mm3 (140-440); Red Blood Count 4.01 M/mm3 (3.65-5.03); Red Cell Distribution Width 17.7 % (13.2-15.2)
[2019-12-19 09:52] LABS: INR 1.19 (0.87-1.13)
[2019-12-19 09:53] LABS: Alanine Aminotransferase 11 units/L (7-56); Albumin 3.4 g/dL (3.9-5); BUN/Creatinine Ratio 39; Blood Urea Nitrogen 55 mg/dL (9-20); Calcium 8.6 mg/dL (8.4-10.2); Hemolysis Index 7; Partial Thromboplastin Time 26.4 Sec. (24.2-36.6)
[2019-12-19] MEDS ORDERED: PANTOPRAZOLE 80 MG in SODIUM CHLORIDE 0.9% 100 ML IV SCH (10:00)
--- NOTE | 2019-12-19 10:25 | XRay Report ---
CHEST 1 VIEW INDICATION / CLINICAL INFORMATION: MAIN: GI Bleed/ETT PLACEMENT AND NGT TUBE PLACEMENT. COMPARISON: Chest radiograph 11/06/2019 FINDINGS: SUPPORT DEVICES: Endotracheal tube in the upper thoracic trachea with tip about 7 cm above the jaret . Left subclavian central line has its tip in the vicinity of the brachiocephalic confluence. Enteric tube is in satisfactory position. HEART / MEDIASTINUM: Stable cardiac mediastinal silhouette. LUNGS / PLEURA: Low lung volumes. No pneumothorax. No pleural fluid or acute airspace disease. IMPRESSION: Consider advancing endotracheal tube by about 3 cm. This recommendation was conveyed to Dr. Quinn by Nate patricio in the emergency room at the time of dictation. Signer Name: Lux Cuevas MD Signed: 12/19/2019 10:20 AM Workstation Name: [id number]
[2019-12-19] MEDS ORDERED: MINERAL OIL/PETROLATUM, WHITE OPHTH OINT 3.5 GM OU PRN (10:35)
[2019-12-19] MEDS ORDERED: LIP THERAPY VASELINE TP PRN (10:35)
[2019-12-19 10:56] LABS: Bilirubin,Urine NEG (Negative); Blood,Urine NEG (Negative); Color,Urine Yellow (Yellow); Hyaline Casts,Urine 11 /LPF; Mucus,Urine 2+ /HPF; Sperm,Urine FEW /HPF (NP); Urobilinogen,Urine < 2.0 mg/dL (<2.0)
[2019-12-19] MEDS ORDERED: LORazepam 2 MG/ML VIAL ONE (11:29)
[2019-12-19] MEDS ORDERED: LORazepam 2 MG/ML VIAL IV ONE (11:30)
[2019-12-19] MEDS ORDERED: METOCLOPRAMIDE 10 MG/2 ML INJ IV ONE (11:30)
--- NOTE | 2019-12-19 11:41 | XRay Report ---
CHEST 1 VIEW INDICATION / CLINICAL INFORMATION: ETT placement. COMPARISON: Chest radiograph same day 9:06 AM FINDINGS: SUPPORT DEVICES: Endotracheal tube tip is in the upper thoracic trachea at the level of thoracic inle t, in similar position as on the previous radiograph. Central line, [employer] shunt catheter tubing, enteric tube all in similar positions. Cardiomediastinal silh ouette and lungs unchanged. IMPRESSION: Endotracheal tube tip remains in the upper thoracic trachea. Signer Name: Lux Cuevas MD Signed: 12/19/2019 11:36 AM Workstation Name: [id number]
[2019-12-19] MEDS ORDERED: ETOMIDATE 20 MG/10 ML INJ IV ONE (11:57)
[2019-12-19] MEDS ORDERED: ROCURONIUM 50 MG/5 ML INJ IV ONE (11:57)
--- NOTE | 2019-12-19 12:10 | History and Physical Report ---
<ANTONIA VALENCIA S - Last Filed: 12/19/19 14:59> History of Present Illness Date of admission: 12/19/19 12:13 Medications and Allergies Allergies Allergy/AdvReac Type Severity Reaction Status Date / Time Penicillins Allergy Unknown Verified 11/06/19 07:48 Home Medications Medication Instructions Recorded Confirmed Last Taken Type Citalopram Hydrobromide [celeXA] 30 mg PO DAILY 02/07/16 11/06/19 02/06/16 History Acetaminophen [Acetaminophen TAB] 650 mg PO Q4HR PRN 01/25/19 11/06/19 Unknown History AtorvaSTATin [Lipitor] 20 mg PO QHS 01/25/19 11/06/19 Unknown History Insulin Lispro [HumaLOG VIAL] See Protocol SUB-Q BID 01/25/19 11/06/19 Unknown History Magnesium Oxide [Mag-Ox] 400 mg PO QDAY 01/25/19 11/06/19 Unknown History Quetiapine Fumarate [SEROquel] 50 mg PO TID 01/25/19 11/06/19 Unknown History Thiamine [Vitamin B-1] 100 mg PO DAILY 01/25/19 11/06/19 Unknown History Timolol 0.5% [Timoptic] 1 drop OU BID 01/25/19 11/06/19 Unknown History Insulin Glargine [Lantus VIAL] 45 units SUB-Q QHS units 02/10/19 11/06/19 Unknown Rx Lipase/Protease/Amylase [Pancreaze 1 each FEEDTUBE PRN PRN capsule 02/10/19 11/06/19 Unknown Rx 10,500 Unit] Simple Syrup 15 ml FEEDTUBE PRN PRN oral.liqd 02/10/19 11/06/19 Unknown Rx Ascorbic Acid [Vitamin C] 500 mg PO Q12H 11/06/19 11/06/19 Unknown History Bismuth Subsalicylate [Pepto 524 mg PO Q6HR PRN 11/06/19 11/06/19 Unknown History Bismol] Ferrous Sulfate [Ferrous Sulfate 450 mg PO BID 11/06/19 11/06/19 Unknown History Oral Liq 300 Mg/5 Ml] Latanoprost 0.005% 1 drop OP QHS 11/06/19 11/06/19 Unknown History Sodium Bicarbonate 650 mg FEEDTUBE PRN PRN 11/06/19 11/06/19 Unknown History lisinopriL [Zestril TAB] 10 mg PO QDAY 11/06/19 11/06/19 Unknown History Pantoprazole [Protonix TAB] 40 mg PO QDAY #30 tablet 11/08/19 Unknown Rx Lansoprazole Solutab [Prevacid 30 mg FEEDTUBE BID tab.rapdis 11/12/19 Unknown Rx Solutab] Active Meds: Active Medications Acetaminophen (Tylenol) 650 mg PO Q4H PRN PRN Reason: Fever >101 Lipase/Protease/Amylase (Pancreaze Dr 10,500 Unit) 1 each FEEDTUBE PRN PRN PRN Reason: For Clogged Feeding Tube Ascorbic Acid (Vitamin C) 500 mg PO Q12HR NIKOLAS Atorvastatin Calcium (Lipitor) 20 mg PO QHS NIKOLAS Bismuth Subsalicylate (Pepto Bismol) 524 mg PO Q6H PRN PRN Reason: Diarrhea Citalopram Hydrobromide (Celexa) 30 mg PO DAILY NIKOLAS Hydrophilic Ointment (Vaseline Lip Therapy) 1 applic TP Q2HR PRN PRN Reason: Dry Lips Pantoprazole Sodium 80 mg/ (Sodium Chloride) 100 mls @ 10 mls/hr IV DIRECT NIKOLAS Last Admin: 12/19/19 10:10 Dose: 8 mg/hr, 10 mls/hr Documented by: Propofol (Diprivan 10 Mg/Ml) 1,000 mg in 100 mls @ 2.238 mls/hr IV TITR NIKOLAS; Protocol Last Admin: 12/19/19 12:01 Dose: 5 mcg/kg/min, 2.238 mls/hr Documented by: Sodium Chloride (Nacl 0.9% 1000 Ml) 1,000 mls @ 50 mls/hr IV DIRECT NIKOLAS Lansoprazole (Prevacid Solutab) 30 mg FEEDTUBE BID NIKOLAS Latanoprost (Latanoprost 0.005%) 1 drops OD QHS NIKOLAS Lisinopril (Zestril) 10 mg PO QDAY NIKOLAS Magnesium Oxide (Mag-Ox) 400 mg PO QDAY NIKOLAS Miscellaneous Medication (Ferrous Sulfate) 450 mg PO BID NIKOLAS Multi-Ingred Cream/Lotion/Oil/Oint (Artificial Tears Ophth Oint) 1 applic OU Q4HR PRN PRN Reason: Dry Eye(s) Quetiapine Fumarate (Seroquel) 50 mg PO TID [facility] Simple Syrup (Simple Syrup) 15 ml FEEDTUBE PRN PRN PRN Reason: Hypoglycemia Sodium Bicarbonate (Sodium Bicarbonate) 650 mg FEEDTUBE PRN PRN PRN Reason: For Clogged Feeding Tube Sodium Chloride (Sodium Chloride Flush Syringe 10 Ml) 10 ml IV BID [facility] Sodium Chloride (Sodium Chloride Flush Syringe 10 Ml) 10 ml IV PRN PRN PRN Reason: LINE FLUSH Thiamine HCl (Vitamin B-1) 100 mg PO DAILY [facility] Timolol Maleate (Timoptic) 1 drops OU BID [facility] Exam - Constitutional Vitals: Temp Pulse Resp BP Pulse Ox 97.5 F L 95 H 15 81/51 100 12/19/19 13:56 12/19/19 14:26 12/19/19 14:26 12/19/19 14:26 12/19/19 14:26 Results - Labs CBC & Chem 7: 12/19/19 09:14 12/19/19 09:14 Labs: Abnormal lab results 12/19/19 12/19/19 12/19/19 Range/Units 09:14 09:14 09:14 WBC 12.1 H (4.5-11.0) K/mm3 Hgb 10.0 L (11.8-15.2) gm/dl Hct 32.3 L (35.5-45.6) % MCV 81 L (84-94) fl MCH 25 L (28-32) pg MCHC 31 L (32-34) % RDW 17.7 H (13.2-15.2) % Cameron # 0.9 H (0.0-0.8) K/mm3 Seg Neutrophils % 78.2 H (40.0-70.0) % Seg Neutrophils # 9.5 H (1.8-7.7) K/mm3 PT 15.3 H (12.2-14.9) Sec. INR 1.19 H (0.87-1.13) ABG pH (7.350-7.450) pH Units ABG pO2 (80.0-90.0) mm Hg ABG HCO3 (20.0-26.0) mmol/L ABG O2 Saturation (95.0-99.0) % ABG Base Excess (-2.0-3.0) mmol/L ABG Hemoglobin (14.0-18.0) gm/dl Carbon Dioxide 20 L (22-30) mmol/L BUN 55 H (9-20) mg/dL Glucose 222 H (75-100) mg/dL POC Glucose (70-105) Lactic Acid (0.7-2.0) mmol/L Albumin 3.4 L (3.9-5) g/dL 12/19/19 12/19/19 12/19/19 Range/Units 09:14 10:05 10:30 WBC (4.5-11.0) K/mm3 Hgb (11.8-15.2) gm/dl Hct (35.5-45.6) % MCV (84-94) fl MCH (28-32) pg MCHC (32-34) % RDW (13.2-15.2) % [place] # (0.0-0.8) K/mm3 Seg Neutrophils % (40.0-70.0) % Seg Neutrophils # (1.8-7.7) K/mm3 PT (12.2-14.9) Sec. INR (0.87-1.13) ABG pH (7.350-7.450) pH Units ABG pO2 (80.0-90.0) mm Hg ABG HCO3 (20.0-26.0) mmol/L ABG O2 Saturation (95.0-99.0) % ABG Base Excess (-2.0-3.0) mmol/L ABG Hemoglobin (14.0-18.0) gm/dl Carbon Dioxide (22-30) mmol/L BUN (9-20) mg/dL Glucose (75-100) mg/dL POC Glucose 212 H (70-105) Lactic Acid 3.10 H* 2.80 H* (0.7-2.0) mmol/L Albumin (3.9-5) g/dL 12/19/19 Range/Units 12:30 WBC (4.5-11.0) K/mm3 Hgb (11.8-15.2) gm/dl Hct (35.5-45.6) % MCV (84-94) fl MCH (28-32) pg MCHC (32-34) % RDW (13.2-15.2) % [place] # (0.0-0.8) K/mm3 Seg Neutrophils % (40.0-70.0) % Seg Neutrophils # (1.8-7.7) K/mm3 PT (12.2-14.9) Sec. INR (0.87-1.13) ABG pH 7.277 L (7.350-7.450) pH Units ABG pO2 195.1 H (80.0-90.0) mm Hg ABG HCO3 19.2 L (20.0-26.0) mmol/L ABG O2 Saturation 99.2 H (95.0-99.0) % ABG Base Excess -7.1 L (-2.0-3.0) mmol/L ABG Hemoglobin 9.4 L (14.0-18.0) gm/dl Carbon Dioxide (22-30) mmol/L BUN (9-20) mg/dL Glucose (75-100) mg/dL POC Glucose (70-105) Lactic Acid (0.7-2.0) mmol/L Albumin (3.9-5) g/dL <CARLEY PAINTING - Last Filed: 12/19/19 16:29> History of Present Illness Chief complaint: He was bleeding and throwing up blood History of present illness: 54 YO Male [facility]pc Facility Resident at [facility] with C OPD, DM, CVA, GERD, HTN, Encephalopathy, Debility presents to ED for evaluation. Patient is encephalopathic, nonverbal and unable to provide history. At the time of my exam the patient is intubated, and on ventilatory support. Patient history taken from ED staff, EMS staff and halfway facility staff. As per staff the patient was observed to have projectile coffee-ground emesis this morning as well as passing bright red blood from his rectum today. EMS was notified and upon arrival the patient was found to be in distress with evidence of upper and lower GI bleed and subsequently transported to [facility] for further evaluation and care. Patient seen and evaluated in the emergency department. Lab and imaging studies reviewed. Patient found to be hypotensive with blood pressure of 70/42 with active bleeding from the GI tract. Patient also was found to be in respiratory distress and was intubated for airway protection for acute hypoxemic respiratory failure. GI team consult placed in ED. Patient admitted to ICU for medical stabilization due to high risk of cardiac and hematologic decompensation. No further history obtainable. Patient initiated on GI bleed protocol. Critical care team consult placed in the ED. prior admission on 11/06/2019 reviewed. All listed medication have been reconciled at the time of admission. Medications and Allergies Active Meds: Active Medications Hydrophilic Ointment (Vaseline Lip Therapy) 1 applic TP Q2HR PRN PRN Reason: Dry Lips Pantoprazole Sodium 80 mg/ (Sodium Chloride) 100 mls @ 10 mls/hr IV DIRECT NIKOLAS Last Admin: 12/19/19 10:10 Dose: 8 mg/hr, 10 mls/hr Documented by: Propofol (Diprivan 10 Mg/Ml) 1,000 mg in 100 mls @ 2.238 mls/hr IV TITR NIKOLAS; Protocol Last Admin: 12/19/19 12:01 Dose: 5 mcg/kg/min, 2.238 mls/hr Documented by: Multi-Ingred Cream/Lotion/Oil/Oint (Artificial Tears Ophth Oint) 1 applic OU Q4HR PRN PRN Reason: Dry Eye(s) Review of Systems ROS unobtainable: due to endotracheal tube, due to mental status Exam - Constitutional General appearance: Present: severe distress - EENT Eyes: Present: miosis ENT: hearing decreased - Neck Neck: Present: supple, normal ROM - Respiratory Respiratory effort: labored Respiratory: bilateral: diminished, rhonchi - Cardiovascular Rhythm: other (Tachycardia) Heart Sounds: Present: S1 & S2. Absent: rub, click - Extremities Extremities: pulses symmetrical, No edema Peripheral Pulses: abnormal (1+ equal bilaterally) - Abdominal General gastrointestinal: Present: soft, non-tender, non-distended, normal bowel sounds Male genitourinary: Present: normal - Integumentary Integumentary: Present: clear, dry, clammy, decreased turgor - Musculoskeletal Musculoskeletal: generalized weakness - Psychiatric Psychiatric: no appropriate mood/affect, no intact judgment & insight, no memory intact - Neurologic Neurologic: CNII-XII intact, no moves all extremities, no gait normal Results - Labs CBC & Chem 7: 12/19/19 09:14 12/19/19 09:14 Labs: Abnormal lab results 12/19/19 12/19/19 12/19/19 Range/Units 09:14 09:14 09:14 WBC 12.1 H (4.5-11.0) K/mm3 Hgb 10.0 L (11.8-15.2) gm/dl Hct 32.3 L (35.5-45.6) % MCV 81 L (84-94) fl MCH 25 L (28-32) pg MCHC 31 L (32-34) % RDW 17.7 H (13.2-15.2) % Cameron # 0.9 H (0.0-0.8) K/mm3 Seg Neutrophils % 78.2 H (40.0-70.0) % Seg Neutrophils # 9.5 H (1.8-7.7) K/mm3 PT 15.3 H (12.2-14.9) Sec. INR 1.19 H (0.87-1.13) Carbon Dioxide 20 L (22-30) mmol/L BUN 55 H (9-20) mg/dL Glucose 222 H (75-100) mg/dL POC Glucose (70-105) Lactic Acid (0.7-2.0) mmol/L Albumin 3.4 L (3.9-5) g/dL 12/19/19 12/19/19 12/19/19 Range/Units 09:14 10:05 10:30 WBC (4.5-11.0) K/mm3 Hgb (11.8-15.2) gm/dl Hct (35.5-45.6) % MCV (84-94) fl MCH (28-32) pg MCHC (32-34) % RDW (13.2-15.2) % Cameron # (0.0-0.8) K/mm3 Seg Neutrophils % (40.0-70.0) % Seg Neutrophils # (1.8-7.7) K/mm3 PT (12.2-14.9) Sec. INR (0.87-1.13) Carbon Dioxide (22-30) mmol/L BUN (9-20) mg/dL Glucose (75-100) mg/dL POC Glucose 212 H (70-105) Lactic Acid 3.10 H* 2.80 H* (0.7-2.0) mmol/L Albumin (3.9-5) g/dL Assessment and Plan - Patient Problems (1) GI bleed Current Visit: Yes Status: Acute Plan to address problem: GI team consulted in ED, endoscopic evaluation as per GI team, supportive care, IV PPI therapy, hold anticoagulation for now due to active GI bleed. The high probability of a clinically significant, sudden or life threatening deterioration of the [neuro, GI, hematologic, renal] system(s) required my full and direct attention, intervention and personal management. The aggregate critical care time was [65] minutes. This time is in addition to time spent performing reported procedures but includes the following: [x] Data Review and interpretation [x] Patient assessment and monitoring of vital signs [x] Documentation [x] Medication orders and management (2) Acute respiratory failure Current Visit: Yes Status: Acute Qualifiers: Respiratory failure complication: hypoxia Qualified Code(s): J96.01 - Acute respiratory failure with hypoxia Plan to address problem: Wean vent as tolerated, chest x-ray, spontaneous breathing trial daily, sedation holiday, pulmonary team consult in ED, ABG. (3) Diabetes Current Visit: Yes Status: Acute Plan to address problem: Consistent carbohydrate diet if/when patient is awake and alert only, Accu-Chek, sliding scale insulin therapy, hypoglycemia protocol. (4) Hypertension Current Visit: Yes Status: Acute Qualifiers: Hypertension type: essential hypertension Qualified Code(s): I10 - Essential (primary) hypertension Plan to address problem: Monitor blood pressure every shift, continue medical management. (5) Metabolic encephalopathy Current Visit: Yes Status: Acute Plan to address problem: Neuro check, aspiration precaution, seizure precaution, supportive care, supportive care. (6) Acidosis Current Visit: Yes Status: Acute Plan to address problem: IV fluid resuscitation therapy as clinically indicated, supportive care, repeat BMP in a.m. (7) Debility Current Visit: Yes Status: Acute Plan to address problem: Supportive care chronic, DC to senior living when medically stable, (8) DVT prophylaxis Current Visit: Yes Status: Acute Plan to address problem: SCD to bilateral lower extremities while in bed, prophylactic heparin.
[2019-12-19] MEDS ORDERED: SIMPLE SYRUP 15 ML FEEDTUBE PRN (12:15)
[2019-12-19] MEDS ORDERED: LIPASE 10,500/PROTEASE 25,000/AMYLASE 43,750 (UNITS) DR CAP FEEDTUBE PRN (12:15)
[2019-12-19] MEDS ORDERED: SODIUM BICARBONATE 325 MG TAB FEEDTUBE PRN (12:15)
[2019-12-19] MEDS ORDERED: BISMUTH SUBSALICYLATE 262 MG/15 ML ORAL LIQD PO PRN (12:15)
[2019-12-19 12:42] LABS: ABG Base Excess -7.1 mmol/L (-2.0-3.0); ABG HCO3 19.2 mmol/L (20.0-26.0); ABG Methemoglobin 0.5 % (0.0-1.5); ABG Oxygen Saturation 99.2 % (95.0-99.0); ABG PCO2 42.2 mm Hg; ABG PH 7.277 pH Units (7.350-7.450); ABG PO2 195.1 mm Hg (80.0-90.0)
[2019-12-19] MEDS ORDERED: WATER FOR IRRIG STERILE 1,000 ML BOTTLE ONE (13:13)
[2019-12-19] MEDS ORDERED: PHENYLEPHRINE/NS 1,000 MCG/10 ML SYRINGE (OR USE) IV ONE (13:15)
[2019-12-19] MEDS ORDERED: LIDOCAINE MPF (2%) 20 MG/1 ML VIAL 5 ML ONE (13:15)
[2019-12-19] MEDS ORDERED: SUCCINYLCHOLINE CHLORIDE 200 MG/10 ML INJ MDV ONE (13:15)
[2019-12-19] MEDS ORDERED: SODIUM CHLORIDE 0.9% 1000 ML 1,000 ML IV SCH (13:15)
[2019-12-19] MEDS ORDERED: propofoL 200 MG/20 ML VIAL IV ONE (13:15)
--- NOTE | 2019-12-19 13:39 | Anesthesia Day of Surgery ---
Anesthesia Day of Surgery - Day of Surgery Patient Examined: Yes Patient H&P Reviewed: Yes Patient is NPO: Yes
--- NOTE | 2019-12-19 13:43 | Anesthesia Consultation ---
Anesthesia Consult and Med Hx Date of service: 12/19/19 - Airway Intubation Access Assessment: Good (Pt is already intubated) - Pre-Operative Health Status ASA Pre-Surgery Classification: ASA4, Emergency Proposed Anesthetic Plan: General - Pulmonary Hx Smoking: Yes Hx Respiratory Symptoms: Yes COPD: Yes - Cardiovascular System Hx Hypertension: Yes - Central Nervous System CVA: Yes (L-sided hemiplegia) Hx Psychiatric Problems: Yes - Gastrointestinal Hx Gastroesophageal Reflux Disease: Yes - Endocrine Hx Insulin Dependent Diabetes: Yes - Hematic Hx Anemia: Yes - Other Systems Hx Cancer: No - Additional Comments Anesthesia Medical History Comments: Pt is intubated. BP 74/48. Has received IVF. Has central line. 54-year-old -Greek male presents from [facility] after he was found vomiting blood this morning. Came by EMS. The patient has a past medical history of CVA with left-sided hemiplegia, hyperlipidemia, HTN, IDDM, BPH and Glaucoma. He is nonverbal at baseline and has a feeding tube in place. The patient does respond to some things with nodding and gestures but overall is a poor historian. The patient also presents with some tachycardia with a heart rate of about 140.Says yes mostly. Past Medical History. Hypertension: Yes. CVA: Yes. Diabetes: Yes. GERD: Yes. COPD: Yes. Additional medical history: shortness of breath, muscle weakness, abnormalities of gait and mobility, BPH,ENCEPHALOPATHY FX FEMUR KIDNEY FAILURE ANEMIA GLAUCOMA PSYCHOTIC DISORDER
--- NOTE | 2019-12-19 13:59 | Gastroenterology Consultation ---
History of Present Illness - Reason for Consult Consult date: 12/19/19 GI bleed Requesting physician: GERA KENT - History of Present Illness The patient is a 54 yo male presenting from [facility] with melena; pt with h/o cva, non-verbal, with chronic peg tube. h/o gastric ulcer from prior endoscopies. upon arrival, pt had large episode of emesis with clots. intubated for airway protection. hypotensive initially and improved with fluid boluses. Past History Past Medical History: hypertension, other (CVA) Past Surgical History: bowel surgery (peg tube) Social history: other ([facility]) Family history: no significant family history Medications and Allergies Allergies Allergy/AdvReac Type Severity Reaction Status Date / Time Penicillins Allergy Unknown Verified 11/06/19 07:48 Home Medications Medication Instructions Recorded Confirmed Last Taken Type Citalopram Hydrobromide [celeXA] 30 mg PO DAILY 02/07/16 11/06/19 02/06/16 History Acetaminophen [Acetaminophen TAB] 650 mg PO Q4HR PRN 01/25/19 11/06/19 Unknown History AtorvaSTATin [Lipitor] 20 mg PO QHS 01/25/19 11/06/19 Unknown History Insulin Lispro [HumaLOG VIAL] See Protocol SUB-Q BID 01/25/19 11/06/19 Unknown History Magnesium Oxide [Mag-Ox] 400 mg PO QDAY 01/25/19 11/06/19 Unknown History Quetiapine Fumarate [SEROquel] 50 mg PO TID 01/25/19 11/06/19 Unknown History Thiamine [Vitamin B-1] 100 mg PO DAILY 01/25/19 11/06/19 Unknown History Timolol 0.5% [Timoptic] 1 drop OU BID 01/25/19 11/06/19 Unknown History Insulin Glargine [Lantus VIAL] 45 units SUB-Q QHS units 02/10/19 11/06/19 Unknown Rx Lipase/Protease/Amylase [Pancreaze 1 each FEEDTUBE PRN PRN capsule 02/10/19 11/06/19 Unknown Rx 10,500 Unit] Simple Syrup 15 ml FEEDTUBE PRN PRN oral.liqd 02/10/19 11/06/19 Unknown Rx Ascorbic Acid [Vitamin C] 500 mg PO Q12H 11/06/19 11/06/19 Unknown History Bismuth Subsalicylate [Pepto 524 mg PO Q6HR PRN 11/06/19 11/06/19 Unknown History Bismol] Ferrous Sulfate [Ferrous Sulfate 450 mg PO BID 11/06/19 11/06/19 Unknown History Oral Liq 300 Mg/5 Ml] Latanoprost 0.005% 1 drop OP QHS 11/06/19 11/06/19 Unknown History Sodium Bicarbonate 650 mg FEEDTUBE PRN PRN 11/06/19 11/06/19 Unknown History lisinopriL [Zestril TAB] 10 mg PO QDAY 11/06/19 11/06/19 Unknown History Pantoprazole [Protonix TAB] 40 mg PO QDAY #30 tablet 11/08/19 Unknown Rx Lansoprazole Solutab [Prevacid 30 mg FEEDTUBE BID tab.rapdis 11/12/19 Unknown Rx Solutab] Active Meds: Active Medications Acetaminophen (Tylenol) 650 mg PO Q4H PRN PRN Reason: Fever >101 Lipase/Protease/Amylase (Pancreaze Dr 10,500 Unit) 1 each FEEDTUBE PRN PRN PRN Reason: For Clogged Feeding Tube Ascorbic Acid (Vitamin C) 500 mg PO Q12HR NIKOLAS Atorvastatin Calcium (Lipitor) 20 mg PO QHS NIKOLAS Bismuth Subsalicylate (Pepto Bismol) 524 mg PO Q6H PRN PRN Reason: Diarrhea Citalopram Hydrobromide (Celexa) 30 mg PO DAILY NIKOLAS Hydrophilic Ointment (Vaseline Lip Therapy) 1 applic TP Q2HR PRN PRN Reason: Dry Lips Pantoprazole Sodium 80 mg/ (Sodium Chloride) 100 mls @ 10 mls/hr IV DIRECT NIKOLAS Last Admin: 12/19/19 10:10 Dose: 8 mg/hr, 10 mls/hr Documented by: Propofol (Diprivan 10 Mg/Ml) 1,000 mg in 100 mls @ 2.238 mls/hr IV TITR NIKOLAS; Protocol Last Admin: 12/19/19 12:01 Dose: 5 mcg/kg/min, 2.238 mls/hr Documented by: Sodium Chloride (Nacl 0.9% 1000 Ml) 1,000 mls @ 50 mls/hr IV DIRECT NIKOLAS Lansoprazole (Prevacid Solutab) 30 mg FEEDTUBE BID [facility] Latanoprost (Latanoprost 0.005%) 1 drops OD QHS [facility] Lisinopril (Zestril) 10 mg PO QDAY [facility] Magnesium Oxide (Mag-Ox) 400 mg PO QDAY [facility] Miscellaneous Medication (Ferrous Sulfate) 450 mg PO BID [facility] Multi-Ingred Cream/Lotion/Oil/Oint (Artificial Tears Ophth Oint) 1 applic OU Q4HR PRN PRN Reason: Dry Eye(s) Quetiapine Fumarate (Seroquel) 50 mg PO TID [facility] Simple Syrup (Simple Syrup) 15 ml FEEDTUBE PRN PRN PRN Reason: Hypoglycemia Sodium Bicarbonate (Sodium Bicarbonate) 650 mg FEEDTUBE PRN PRN PRN Reason: For Clogged Feeding Tube Sodium Chloride (Sodium Chloride Flush Syringe 10 Ml) 10 ml IV BID [facility] Sodium Chloride (Sodium Chloride Flush Syringe 10 Ml) 10 ml IV PRN PRN PRN Reason: LINE FLUSH Thiamine HCl (Vitamin B-1) 100 mg PO DAILY [facility] Timolol Maleate (Timoptic) 1 drops OU BID [facility] Reviewed/updated patient's home and current medications Review of Systems - Review of Systems ROS unobtainable: due to endotracheal tube, due to mental status Exam - Constitutional Vital Signs: Temp Pulse Resp BP Pulse Ox 98.8 F 110 H 20 72/49 100 12/19/19 08:05 12/19/19 08:05 12/19/19 08:35 12/19/19 08:05 12/19/19 08:35 General appearance: other (intubated/sedated, non-verbal) - EENT ENT: other (+ OG tube and ET tube) - Respiratory Respiratory effort: normal Respiratory: bilateral: CTA - Cardiovascular Rhythm: regular Heart Sounds: Present: S1 & S2 - Gastrointestinal General gastrointestinal: Present: soft, non-tender, non-distended, other (+ peg tube) - Integumentary Integumentary: Present: clear, warm - Neurologic Neurological: other (intubated) - Labs CBC & Chem 7: 12/19/19 09:14 12/19/19 09:14 Lab Results: Laboratory Results - last 24 hr 12/19/19 12/19/19 12/19/19 09:10 09:14 09:14 WBC 12.1 H RBC 4.01 Hgb 10.0 L Hct 32.3 L MCV 81 L MCH 25 L MCHC 31 L RDW 17.7 H Plt Count 334 Lymph % (Auto) 14.0 [place] % (Auto) 7.3 Eos % (Auto) 0.1 Baso % (Auto) 0.4 Lymph # 1.7 [place] # 0.9 H Eos # 0.0 Baso # 0.0 Seg Neutrophils % 78.2 H Seg Neutrophils # 9.5 H PT 15.3 H INR 1.19 H APTT 26.4 ABG pH ABG pCO2 ABG pO2 ABG HCO3 ABG O2 Saturation ABG O2 Content ABG Base Excess ABG Hemoglobin ABG Carboxyhemoglobin ABG Methemoglobin Oxyhemoglobin FiO2 Sodium Potassium Chloride Carbon Dioxide Anion Gap BUN Creatinine Estimated GFR BUN/Creatinine Ratio Glucose POC Glucose Lactic Acid Calcium Magnesium Total Bilirubin AST ALT Alkaline Phosphatase Ammonia Total Protein Albumin Albumin/Globulin Ratio Lipase Urine Color Urine Turbidity Urine pH Ur Specific [place] Urine Protein Urine Glucose (UA) Urine Ketones Urine Blood Urine Nitrite Urine Bilirubin Urine Urobilinogen Ur Leukocyte Esterase Urine WBC (Auto) Urine RBC (Auto) U Epithel Cells (Auto) Hyaline Casts Urine Mucus Urine Sperm Blood Type O POSITIVE Antibody Screen Negative 12/19/19 12/19/19 12/19/19 09:14 09:14 09:14 WBC RBC Hgb Hct MCV MCH MCHC RDW Plt Count Lymph % (Auto) [place] % (Auto) Eos % (Auto) Baso % (Auto) Lymph # [place] # Eos # Baso # Seg Neutrophils % Seg Neutrophils # PT INR APTT ABG pH ABG pCO2 ABG pO2 ABG HCO3 ABG O2 Saturation ABG O2 Content ABG Base Excess ABG Hemoglobin ABG Carboxyhemoglobin ABG Methemoglobin Oxyhemoglobin FiO2 Sodium 142 Potassium 3.9 Chloride 104.5 Carbon Dioxide 20 L Anion Gap 21 BUN 55 H Creatinine 1.4 Estimated GFR > 60 BUN/Creatinine Ratio 39 Glucose 222 H POC Glucose Lactic Acid 3.10 H* Calcium 8.6 Magnesium 2.00 Total Bilirubin 0.20 AST 13 ALT 11 Alkaline Phosphatase 85 Ammonia 35.0 Total Protein 6.6 Albumin 3.4 L Albumin/Globulin Ratio 1.1 Lipase 49 Urine Color Urine Turbidity Urine pH Ur Specific [place] Urine Protein Urine Glucose (UA) Urine Ketones Urine Blood Urine Nitrite Urine Bilirubin Urine Urobilinogen Ur Leukocyte Esterase Urine WBC (Auto) Urine RBC (Auto) U Epithel Cells (Auto) Hyaline Casts Urine Mucus Urine Sperm Blood Type Antibody Screen 12/19/19 12/19/19 12/19/19 10:02 10:05 10:30 WBC RBC Hgb Hct MCV MCH MCHC RDW Plt Count Lymph % (Auto) [place] % (Auto) Eos % (Auto) Baso % (Auto) Lymph # [place] # Eos # Baso # Seg Neutrophils % Seg Neutrophils # PT INR APTT ABG pH ABG pCO2 ABG pO2 ABG HCO3 ABG O2 Saturation ABG O2 Content ABG Base Excess ABG Hemoglobin ABG Carboxyhemoglobin ABG Methemoglobin Oxyhemoglobin FiO2 Sodium Potassium Chloride Carbon Dioxide Anion Gap BUN Creatinine Estimated GFR BUN/Creatinine Ratio Glucose POC Glucose 212 H Lactic Acid 2.80 H* Calcium Magnesium Total Bilirubin AST ALT Alkaline Phosphatase Ammonia Total Protein Albumin Albumin/Globulin Ratio Lipase Urine Color Yellow Urine Turbidity Slightly-cloudy Urine pH 5.0 Ur Specific [place] 1.024 Urine Protein 30 mg/dl Urine Glucose (UA) 50 Urine Ketones Neg Urine Blood Neg Urine Nitrite Neg Urine Bilirubin Neg Urine Urobilinogen < 2.0 Ur Leukocyte Esterase Neg Urine WBC (Auto) 2.0 Urine RBC (Auto) 1.0 U Epithel Cells (Auto) < 1.0 Hyaline Casts 11 Urine Mucus 2+ Urine Sperm Few Blood Type Antibody Screen 12/19/19 12:30 WBC RBC Hgb Hct MCV MCH MCHC RDW Plt Count Lymph % (Auto) [place] % (Auto) Eos % (Auto) Baso % (Auto) Lymph # [place] # Eos # Baso # Seg Neutrophils % Seg Neutrophils # PT INR APTT ABG pH 7.277 L ABG pCO2 42.2 ABG pO2 195.1 H ABG HCO3 19.2 L ABG O2 Saturation 99.2 H ABG O2 Content 13.3 ABG Base Excess -7.1 L ABG Hemoglobin 9.4 L ABG Carboxyhemoglobin 2.0 ABG Methemoglobin 0.5 Oxyhemoglobin 96.6 FiO2 50 Sodium Potassium Chloride Carbon Dioxide Anion Gap BUN Creatinine Estimated GFR BUN/Creatinine Ratio Glucose POC Glucose Lactic Acid Calcium Magnesium Total Bilirubin AST ALT Alkaline Phosphatase Ammonia Total Protein Albumin Albumin/Globulin Ratio Lipase Urine Color Urine Turbidity Urine pH Ur Specific [place] Urine Protein Urine Glucose (UA) Urine Ketones Urine Blood Urine Nitrite Urine Bilirubin Urine Urobilinogen Ur Leukocyte Esterase Urine WBC (Auto) Urine RBC (Auto) U Epithel Cells (Auto) Hyaline Casts Urine Mucus Urine Sperm Blood Type Antibody Screen Assessment and Plan 1. UGI bleed 2. History of gastric ulcer -plan for EGD today, cont IV PPI drip
[2019-12-19] MEDS ORDERED: QUETIAPINE FUMARATE 50 MG PO SCH (14:00)
--- NOTE | 2019-12-19 14:07 | Operative Report ---
Operative Report Operative Report: Esophagogastroduodenoscopy Procedure Note Date of procedure: 12/19/2019 Endoscopist: Arsh Ruff Pre-op diagnosis/indication: Upper GI bleed Post-op diagnosis: Gastric ulcer MEDICATIONS: MAC COMPLICATIONS: No immediate complications ESTIMATED BLOOD LOSS: None DESCRIPTION OF PROCEDURE: Consent was obtained by two physicians due to emergent indication. The patient was placed in the left lateral decubitis position. The olympus endoscope was inserted into the patient's mouth under direct vision and advanced to the 2nd portion of the duodenum without difficulty. The patient tolerated the procedure well. The views of the mucosa were fair. The patient's vital signs were monitored continuously throughout the procedure. FINDINGS: There was esophagitis in the lower third of the esophagus. There was old appearing blood in the stomach and antrum. There was a cratered, clean based ulcer in the incisura of the stomach. No high risk bleeding stigmata was seen. Internal bumper of peg tube seen in the stomach. The duodenum appeared normal with bile seen throughout the visualized portion of the duodenum IMPRESSION: 1. Gastric ulcer at incisura without high risk bleeding stigmata RECOMMENDATIONS: -continue IV PPI drip for time being and switch to BID dosing tomorrow if no further bleeding -monitor labs and transfuse as needed to keep hgb > 8 -okay to resume tube feeds in the morning if no further bleeding
[2019-12-19] MEDS ORDERED: SODIUM CHLORIDE 0.9% 500 ML 500 ML ONE ×2 (14:34→16:24)
--- NOTE | 2019-12-19 14:36 | Post Anesthesia Evaluation ---
- Post Anesthesia Evaluation Patient Participated: No Airway Patent: Yes Stable Respiratory Function: Yes Nausea/Vomiting: No Temp > 96.8F: Yes Pain Manageable: Yes Adequeate Hydration: No (Pt getting hydration) Anesthesia Complications: No Block Receding Appropriately: Not Applicable Patient on Ventilator: Yes (Was already intubated)
[2019-12-19] MEDS: LISINOPRIL 10 MG TAB PO SCH (15:03)
--- NOTE | 2019-12-19 15:42 | Consultation ---
History of Present Illness Consult date: 12/19/19 Requesting physician: CARLEY PAINTING Reason for consult: other (AHRF on MVS; Acute G.I. Bleed) History of present illness: PULMONARY/CCM CONSULT NOTE (Full dictation # [id number]) Please see dictated notes for full details Past History Past Medical History: hypertension, other (CVA) Past Surgical History: bowel surgery (peg tube) Social history: other (long term) Family history: no significant family history Medications and Allergies Allergies Allergy/AdvReac Type Severity Reaction Status Date / Time Penicillins Allergy Unknown Verified 11/06/19 07:48 Home Medications Medication Instructions Recorded Confirmed Last Taken Type Citalopram Hydrobromide [celeXA] 30 mg PO DAILY 02/07/16 12/21/19 02/06/16 History Acetaminophen [Acetaminophen TAB] 650 mg PO Q4HR PRN 01/25/19 12/21/19 Unknown History AtorvaSTATin [Lipitor] 20 mg PO QHS 01/25/19 12/21/19 Unknown History Insulin Lispro [HumaLOG VIAL] See Protocol SUB-Q BID 01/25/19 12/21/19 Unknown History Magnesium Oxide [Mag-Ox] 400 mg PO QDAY 01/25/19 12/21/19 Unknown History Quetiapine Fumarate [SEROquel] 50 mg PO TID 01/25/19 12/21/19 Unknown History Thiamine [Vitamin B-1] 100 mg PO DAILY 01/25/19 12/21/19 Unknown History Timolol 0.5% [Timoptic] 1 drop OU BID 01/25/19 12/21/19 Unknown History Insulin Glargine [Lantus VIAL] 45 units SUB-Q QHS units 02/10/19 12/21/19 Unknown Rx Lipase/Protease/Amylase [Pancreaze 1 each FEEDTUBE PRN PRN capsule 02/10/19 12/21/[address] 10,500 Unit] Simple Syrup 15 ml FEEDTUBE PRN PRN oral.liqd 02/10/19 12/21/19 Unknown Rx Ascorbic Acid [Vitamin C] 500 mg PO Q12H 11/06/19 12/21/19 Unknown History Bismuth Subsalicylate [Pepto 524 mg PO Q6HR PRN 11/06/19 12/21/19 Unknown History Bismol] Ferrous Sulfate [Ferrous Sulfate 450 mg PO BID 11/06/19 12/21/19 Unknown History Oral Liq 300 Mg/5 Ml] Latanoprost 0.005% 1 drop OP QHS 11/06/19 12/21/19 Unknown History Sodium Bicarbonate 650 mg FEEDTUBE PRN PRN 11/06/19 12/21/19 Unknown History lisinopriL [Zestril TAB] 10 mg PO QDAY 11/06/19 12/21/19 Unknown History Pantoprazole [Protonix TAB] 40 mg PO QDAY #30 tablet 11/08/19 12/21/19 Unknown Rx Lansoprazole Solutab [Prevacid 30 mg FEEDTUBE BID tab.rapdis 11/12/19 12/21/19 Unknown Rx Solutab] Active Meds: Active Medications Acetaminophen (Tylenol) 650 mg PO Q4H PRN PRN Reason: Fever >101 Lipase/Protease/Amylase (Pancreaze Dr 10,500 Unit) 1 each FEEDTUBE PRN PRN PRN Reason: For Clogged Feeding Tube Ascorbic Acid (Vitamin C) 500 mg PO Q12HR [facility]IKOLAS Atorvastatin Calcium (Lipitor) 20 mg PO QHS NIKOLAS Bismuth Subsalicylate (Pepto Bismol) 524 mg PO Q6H PRN PRN Reason: Diarrhea Citalopram Hydrobromide (Celexa) 30 mg PO DAILY NIKOLAS Hydrophilic Ointment (Vaseline Lip Therapy) 1 applic TP Q2HR PRN PRN Reason: Dry Lips Pantoprazole Sodium 80 mg/ (Sodium Chloride) 100 mls @ 10 mls/hr IV DIRECT NIKOLAS Last Admin: 12/19/19 10:10 Dose: 8 mg/hr, 10 mls/hr Documented by: Propofol (Diprivan 10 Mg/Ml) 1,000 mg in 100 mls @ 2.238 mls/hr IV TITR NIKOLAS; Protocol Last Admin: 12/19/19 12:01 Dose: 5 mcg/kg/min, 2.238 mls/hr Documented by: Sodium Chloride (Nacl 0.9% 1000 Ml) 1,000 mls @ 50 mls/hr IV DIRECT NIKOLAS Lansoprazole (Prevacid Solutab) 30 mg FEEDTUBE BID NIKOLAS Latanoprost (Latanoprost 0.005%) 1 drops OD QHS NIKOLAS Lisinopril (Zestril) 10 mg PO QDAY [facility] Last Admin: 12/19/19 15:03 Dose: Not Given Documented by: Magnesium Oxide (Mag-Ox) 400 mg PO QDAY [facility] Miscellaneous Medication (Ferrous Sulfate) 450 mg PO BID [facility] Multi-Ingred Cream/Lotion/Oil/Oint (Artificial Tears Ophth Oint) 1 applic OU Q4HR PRN PRN Reason: Dry Eye(s) Quetiapine Fumarate (Seroquel) 50 mg PO TID [facility] Simple Syrup (Simple Syrup) 15 ml FEEDTUBE PRN PRN PRN Reason: Hypoglycemia Sodium Bicarbonate (Sodium Bicarbonate) 650 mg FEEDTUBE PRN PRN PRN Reason: For Clogged Feeding Tube Sodium Chloride (Sodium Chloride Flush Syringe 10 Ml) 10 ml IV BID [facility] Sodium Chloride (Sodium Chloride Flush Syringe 10 Ml) 10 ml IV PRN PRN PRN Reason: LINE FLUSH Thiamine HCl (Vitamin B-1) 100 mg PO DAILY [facility] Timolol Maleate (Timoptic) 1 drops OU BID [facility] Physical Examination Vital signs: Vital Signs Temp Pulse Resp BP Pulse Ox 98.8 F 110 H 19 72/49 97 12/19/19 08:05 12/19/19 08:05 12/19/19 08:05 12/19/19 08:05 12/19/19 08:05 Results - Laboratory Findings CBC and BMP: 12/22/19 10:34 12/22/19 10:34 ABG ABG pH 7.277 pH Units (7.350-7.450) L 12/19/19 12:30 ABG pCO2 42.2 mm Hg 12/19/19 12:30 ABG pO2 195.1 mm Hg (80.0-90.0) H 12/19/19 12:30 ABG O2 Saturation 99.2 % (95.0-99.0) H 12/19/19 12:30 PT/INR, D-dimer PT 15.3 Sec. (12.2-14.9) H 12/19/19 09:14 INR 1.19 (0.87-1.13) H 12/19/19 09:14 Abnormal lab findings: Abnormal Labs 12/19/19 12/19/19 12/19/19 09:14 09:14 09:14 WBC 12.1 H Hgb 10.0 L Hct 32.3 L MCV 81 L MCH 25 L MCHC 31 L RDW 17.7 H [place] # 0.9 H Seg Neutrophils % 78.2 H Seg Neutrophils # 9.5 H PT 15.3 H INR 1.19 H ABG pH ABG pO2 ABG HCO3 ABG O2 Saturation ABG Base Excess ABG Hemoglobin Carbon Dioxide 20 L BUN 55 H Glucose 222 H POC Glucose Lactic Acid Albumin 3.4 L 12/19/19 12/19/19 12/19/19 09:14 10:05 10:30 WBC Hgb Hct MCV MCH MCHC RDW [place] # Seg Neutrophils % Seg Neutrophils # PT INR ABG pH ABG pO2 ABG HCO3 ABG O2 Saturation ABG Base Excess ABG Hemoglobin Carbon Dioxide BUN Glucose POC Glucose 212 H Lactic Acid 3.10 H* 2.80 H* Albumin 12/19/19 12:30 WBC Hgb Hct MCV MCH MCHC RDW [place] # Seg Neutrophils % Seg Neutrophils # PT INR ABG pH 7.277 L ABG pO2 195.1 H ABG HCO3 19.2 L ABG O2 Saturation 99.2 H ABG Base Excess -7.1 L ABG Hemoglobin 9.4 L Carbon Dioxide BUN Glucose POC Glucose Lactic Acid Albumin
[2019-12-19] MEDS ORDERED: METOCLOPRAMIDE 10 MG/2 ML INJ ONE (16:57)
[2019-12-19] MEDS ORDERED: QUEtiapine 25 MG TAB ONE (16:59)
[2019-12-19] MEDS: CITALOPRAM 10 MG TAB PO SCH (17:09)
[2019-12-19] MEDS: QUEtiapine 25 MG TAB PO SCH (17:09)
[2019-12-19] MEDS ORDERED: SODIUM CHLORIDE 0.9% 1000 ML 1,000 ML ONE (18:30)
[2019-12-19] MEDS: ASCORBIC ACID 500 MG TAB PO SCH (19:35)
[2019-12-20] MEDS: TIMOLOL 0.5% OPHTH SOLN 5 ML OU SCH ×3 (00:27→22:08)
[2019-12-20] MEDS: LANSOPRAZOLE 30 MG SOLUTAB FEEDTUBE SCH ×2 (00:45→09:46)
[2019-12-20] MEDS: QUEtiapine 25 MG TAB PO SCH ×4 (00:45→20:48)
[2019-12-20] MEDS: LATANOPROST 0.005% OPHTH SOLN 2.5 ML OD SCH ×2 (00:50→22:07)
[2019-12-20] MEDS: ASCORBIC ACID 500 MG TAB PO SCH ×3 (02:27→22:08)
--- NOTE | 2019-12-20 02:31 | XRay Report ---
CHEST 1 VIEW INDICATION / CLINICAL INFORMATION: follow up respiratory failure. COMPARISON: 12/19/2019 FINDINGS: SUPPORT DEVICES: Endotracheal tube, nasogastric tube, left central venous catheter, shunt catheter HEART / MEDIASTINUM: No significant abnormality. LUNGS / PLEURA: No significant pulmonary or pleural abnormality. No pneumothorax. ADDITIONAL FINDINGS: No significant additional findings. IMPRESSION: No acute pulmonary or pleural abnormality. No change from yesterday Signer Name: Peter Talavera MD FACR Signed: 12/20/2019 2:26 AM Workstation Name: [employer]
[2019-12-20] MEDS: FERROUS SULFATE PO SCH ×2 (03:12→09:46)
[2019-12-20 04:37] LABS: ABG Base Excess -1.8 mmol/L (-2.0-3.0); ABG HCO3 22.3 mmol/L (20.0-26.0); ABG Methemoglobin 0.6 % (0.0-1.5); ABG Oxygen Saturation 98.8 % (95.0-99.0); ABG PCO2 35.2 mm Hg; ABG PH 7.42 pH Units (7.350-7.450); ABG PO2 139.7 mm Hg (80.0-90.0)
[2019-12-20 05:14] LABS: Basophils % (Auto) 0.2 % (0.0-1.8); Lymphocytes # (Auto) 1.4 K/mm3 (1.2-5.4); Lymphocytes % (Auto) 12.2 % (13.4-35.0); Mean Corpuscular HGB Conc 31 % (32-34); Mean Corpuscular Volume 81 fl (84-94); Monocytes # (Auto) 1.2 K/mm3 (0.0-0.8); Monocytes % (Auto) 11.1 % (0.0-7.3); Platelet Count 223 K/mm3 (140-440); Red Blood Count 3.21 M/mm3 (3.65-5.03); Red Cell Distribution Width 17.7 % (13.2-15.2)
[2019-12-20 05:34] LABS: BUN/Creatinine Ratio 48; Blood Urea Nitrogen 29 mg/dL (9-20); Calcium 8.6 mg/dL (8.4-10.2); Hemolysis Index 3
--- NOTE | 2019-12-20 09:08 | Progress Note ---
Assessment and Plan Acute hypoxemic respiratory failure on MVS Acute upper GI bleed s/p EGD Oropharyngeal dysphagia s/p PEG Severe Sepsis witrh Shock Diabetes mellitus type 2 Hypertension Metabolic acidosis/lactic acidosis I am holding sedation, placing on SBT. PS 05/06. Will get weaning parameters. If his mental status is appropriate, and his weaning parameters are within range- will plan to liberate from MVS If not continue all care as documented below. -Continue with MVS, Lung protective strategies, monitor airway pressures -VAP bundle addressed -Aspiration precautions, HOB>40 -Daily assessment for readiness for SBT, Daily SAT -Titrate sedation for RAAS -1 to -2 -VTE prophylaxis -Stress ulcer prophylaxis - Initiate enteric nutrition in the morning Monitor glycemic control, with target blood glucose 140-180 mg/dL while critically ill. Avoid hypoglycemia -RD consult placed - Wean supplemental oxygen for target O2 sat's > 90% -ABG and CXR in am -Avoid nephrotoxins, adjust all medications for GFR and CrCL - Bronchodilators with pulmonary hygiene per RT - Avoid benzodiazepines to reduce the possibility of delirium - prn analgesia per CPOT score - Maintenance of sleep-wake cycle, avoid delirium - PT/OT/ROM exercises - continue mobility protocol and skin assessment per protocol for pressure ulcer prevention - Monitor hemodynamics closely -Contact and airborne isolation for PUI COVID-19 per chart- patient was i betty room with a patient who was PUI COVID 19 -Mobility, off loading and skin assessment per protocol to prevent pressure u lcer -Chronic home medications as clinically indicated - continue other care per attending / other consultants CONDITION: CRITICAL PROGNOSIS: GUARDED CODE STATUS: FULL CODE The high probability of a clinically significant, sudden or life-threatening deterioration of the [respiratory, cardiovascular, renal] system(s) required my full and direct attention, intervention and personal management. The aggregate critical care time was [35] minutes without overlap. Time includes spent on; [x] Data Review and interpretation [x] Patient assessment and monitoring of vital signs [x] Documentation [x] Medication orders and management Subjective Date of service: 12/20/19 Interval history: Patient is seen today for: Acute upper GI bleed; Severe Sepsis witrh Shock; Acute hypoxemic respiratory failure on MVS; DM II; HTN; Metabolic acidosis/lactic acidosis Seen and examined at bedside; 24hour events reviewed; nursing and respiratory care staff consulted; no adverse overnight events reported to me; resting peacefully in bed; no gross G.I. bleeding; no emesis or overt aspiration, orally intubated, sedated Objective - Exam Narrative Exam: Vitals reviewed. General appearance: Present: severe distress, other (Orally intubatedon mechanical ventilation) - EENT Eyes: Present: PERRL, EOM intact ENT: ETT at 23cm at the lip, no patient-ventilator dys-synchrony - Neck Neck: Present: supple, normal ROM - Respiratory Respiratory effort: normal Respiratory: bilateral: CTA - Cardiovascular Rhythm: regular Heart Sounds: Present: S1 & S2. Absent: gallop, rub - Extremities Extremities: no ischemia, No edema, Full ROM - Abdominal General gastrointestinal: soft, non-tender, non-distended, normal bowel sounds PEG in place - Integumentary Integumentary: Present: clear, warm, dry - Neurologic Neurologic: Unable to assess, sedated Vital Signs - 12hr 12/19/19 12/19/19 12/19/19 21:01 21:15 21:31 Pulse Rate 111 H 110 H 119 H Respiratory 20 20 20 Rate Blood Pressure 99/70 103/68 112/82 O2 Sat by Pulse 97 Oximetry 12/19/19 12/19/19 12/19/19 21:45 22:01 22:15 Pulse Rate 111 H 112 H 111 H Respiratory 20 19 20 Rate Blood Pressure 108/74 112/82 111/75 O2 Sat by Pulse Oximetry 12/19/19 12/19/19 12/19/19 22:31 22:45 23:01 Pulse Rate 113 H 111 H 117 H Respiratory 20 20 21 Rate Blood Pressure 106/77 111/77 113/71 O2 Sat by Pulse 100 Oximetry 12/19/19 12/19/19 12/19/19 23:15 23:31 23:45 Pulse Rate 117 H 114 H 114 H Respiratory 20 20 19 Rate Blood Pressure 95/64 103/72 107/74 O2 Sat by Pulse 93 Oximetry 12/20/19 12/20/19 12/20/19 00:01 00:15 00:31 Pulse Rate 112 H 110 H 110 H Respiratory 20 19 20 Rate Blood Pressure 102/71 106/67 99/66 O2 Sat by Pulse 100 Oximetry 12/20/19 12/20/19 12/20/19 00:33 00:45 01:01 Pulse Rate 112 H 109 H 133 H Respiratory 20 21 Rate Blood Pressure 106/67 115/82 104/70 O2 Sat by Pulse 96 Oximetry 12/20/19 12/20/19 12/20/19 01:15 01:31 01:45 Pulse Rate 118 H 113 H Respiratory 21 17 20 Rate Blood Pressure 107/83 125/101 111/80 O2 Sat by Pulse Oximetry 12/20/19 12/20/19 12/20/19 02:01 02:15 02:31 Pulse Rate 115 H 112 H 116 H Respiratory 15 17 17 Rate Blood Pressure 118/83 105/75 125/79 O2 Sat by Pulse 85 Oximetry 12/20/19 12/20/19 12/20/19 02:45 03:01 03:15 Pulse Rate 114 H 117 H 115 H Respiratory 14 20 20 Rate Blood Pressure 128/76 128/76 128/76 O2 Sat by Pulse 100 100 Oximetry 12/20/19 12/20/19 12/20/19 03:31 03:45 04:01 Pulse Rate 112 H 109 H 108 H Respiratory 20 20 20 Rate Blood Pressure 128/76 128/76 128/76 O2 Sat by Pulse 98 Oximetry 12/20/19 12/20/19 12/20/19 04:15 04:22 04:31 Pulse Rate 114 H 106 H 109 H Respiratory 20 20 Rate Blood Pressure 128/76 128/76 O2 Sat by Pulse 100 99 Oximetry 12/20/19 12/20/19 12/20/19 04:45 05:01 05:15 Pulse Rate 108 H 110 H 106 H Respiratory 21 20 20 Rate Blood Pressure 128/76 109/72 127/89 O2 Sat by Pulse Oximetry 12/20/19 12/20/19 12/20/19 05:31 05:45 06:01 Pulse Rate 111 H 114 H 109 H Respiratory 20 22 20 Rate Blood Pressure 117/79 112/81 104/76 O2 Sat by Pulse Oximetry 12/20/19 12/20/19 12/20/19 06:15 06:31 06:45 Pulse Rate 111 H 108 H 104 H Respiratory 17 20 20 Rate Blood Pressure 115/79 109/73 109/75 O2 Sat by Pulse 100 Oximetry 12/20/19 12/20/19 12/20/19 07:01 07:15 07:31 Pulse Rate 115 H 109 H 108 H Respiratory 19 20 15 Rate Blood Pressure 104/66 113/76 119/77 O2 Sat by Pulse Oximetry 12/20/19 12/20/19 12/20/19 07:45 08:00 08:01 Pulse Rate 108 H 105 H 123 H Respiratory 13 20 Rate Blood Pressure 125/76 118/79 118/78 O2 Sat by Pulse 100 Oximetry 12/20/19 08:15 Pulse Rate Respiratory 21 Rate Blood Pressure 118/77 O2 Sat by Pulse Oximetry CBC and BMP: 12/23/19 06:38 12/23/19 06:38 ABG, PT/INR, D-dimer: ABG ABG pH 7.420 pH Units (7.350-7.450) 12/20/19 04:20 ABG pCO2 35.2 mm Hg 12/20/19 04:20 ABG pO2 139.7 mm Hg (80.0-90.0) H 12/20/19 04:20 ABG O2 Saturation 98.8 % (95.0-99.0) 12/20/19 04:20 PT/INR, D-dimer PT 15.3 Sec. (12.2-14.9) H 12/19/19 09:14 INR 1.19 (0.87-1.13) H 12/19/19 09:14 Abnormal lab findings: Abnormal Labs 12/19/19 12/19/19 12/19/19 09:14 09:14 09:14 WBC 12.1 H RBC Hgb 10.0 L Hct 32.3 L MCV 81 L MCH 25 L MCHC 31 L RDW 17.7 H Lymph % (Auto) [place] % (Auto) [place] # 0.9 H Seg Neutrophils % 78.2 H Seg Neutrophils # 9.5 H PT 15.3 H INR 1.19 H ABG pH ABG pO2 ABG HCO3 ABG O2 Saturation ABG Base Excess ABG Hemoglobin Sodium Chloride Carbon Dioxide 20 L BUN 55 H Creatinine Glucose 222 H POC Glucose Lactic Acid Albumin 3.4 L 12/19/19 12/19/19 12/19/19 09:14 10:05 10:30 WBC RBC Hgb Hct MCV MCH MCHC RDW Lymph % (Auto) [place] % (Auto) [place] # Seg Neutrophils % Seg Neutrophils # PT INR ABG pH ABG pO2 ABG HCO3 ABG O2 Saturation ABG Base Excess ABG Hemoglobin Sodium Chloride Carbon Dioxide BUN Creatinine Glucose POC Glucose 212 H Lactic Acid 3.10 H* 2.80 H* Albumin 12/19/19 12/19/19 12/20/19 12:30 15:55 04:20 WBC RBC Hgb Hct MCV MCH MCHC RDW Lymph % (Auto) [place] % (Auto) [place] # Seg Neutrophils % Seg Neutrophils # PT INR ABG pH 7.277 L ABG pO2 195.1 H 139.7 H ABG HCO3 19.2 L ABG O2 Saturation 99.2 H ABG Base Excess -7.1 L ABG Hemoglobin 9.4 L 9.2 L Sodium Chloride Carbon Dioxide BUN Creatinine Glucose POC Glucose Lactic Acid 5.10 H* Albumin 12/20/19 12/20/19 04:59 04:59 WBC 11.3 H RBC 3.21 L Hgb 8.0 L Hct 26.0 L D MCV 81 L MCH 25 L MCHC 31 L RDW 17.7 H Lymph % (Auto) 12.2 L [place] % (Auto) 11.1 H [place] # 1.2 H Seg Neutrophils % 76.5 H Seg Neutrophils # 8.6 H PT INR ABG pH ABG pO2 ABG HCO3 ABG O2 Saturation ABG Base Excess ABG Hemoglobin Sodium 147 H Chloride 113.7 H Carbon Dioxide BUN 29 H Creatinine 0.6 L D Glucose 172 H POC Glucose Lactic Acid Albumin
[2019-12-20] MEDS: CITALOPRAM 10 MG TAB PO SCH (09:45)
[2019-12-20] MEDS: LISINOPRIL 10 MG TAB PO SCH (09:46)
[2019-12-20] MEDS: MAGNESIUM OXIDE 400 MG TAB PO SCH (09:46)
[2019-12-20] MEDS ORDERED: FERROUS SULFATE 325 MG TAB PO SCH (10:00)
[2019-12-20] MEDS ORDERED: CITALOPRAM 20 MG TAB PO SCH (10:00)
[2019-12-20] MEDS ORDERED: FUROSEMIDE 20 MG/2 ML INJ IV ONE (11:00)
[2019-12-20] MEDS ORDERED: VANCOMYCIN PHARMACY TO DOSE IV SCH (11:00)
[2019-12-20] MEDS: THIAMINE 100 MG TAB PO SCH (11:26)
[2019-12-20] MEDS ORDERED: FUROSEMIDE 20 MG/2 ML INJ ONE (11:27)
[2019-12-20] MEDS ORDERED: PANTOPRAZOLE 40 MG INJ IV ONE ×2 (11:31→22:06)
[2019-12-20] MEDS: PANTOPRAZOLE 40 MG INJ IV SCH ×2 (12:12→22:07)
[2019-12-20] MEDS: VANCOMYCIN 1,250 MG in SODIUM CHLORIDE 0.9% 250ML 250 ML IV SCH ×2 (12:12→20:47)
[2019-12-20 12:35] LABS: ABG Base Excess -0.8 mmol/L (-2.0-3.0); ABG HCO3 23.5 mmol/L (20.0-26.0); ABG Methemoglobin 0.5 % (0.0-1.5); ABG Oxygen Saturation 98.9 % (95.0-99.0); ABG PH 7.432 pH Units (7.350-7.450); ABG PO2 150.8 mm Hg (80.0-90.0)
--- NOTE | 2019-12-20 12:53 | Progress Note ---
Assessment and Plan Assessment and plan: Acute upper GI bleed. Patient underwent endoscopy which revealed esophagitis in the lower third of the esophagus. There was a cratered, clean based ulcer in the incisura of the stomach. No high risk bleeding stigmata was seen. Continue to monitor H&H and transfuse for hemoglobin less than 7. Continue IV PPI. Acute hypoxic respiratory failure. Wean vent per protocol. Pulmonary consulted. Continue spontaneous breathing trials daily. Follow-up chest x-ray and ABG. Diabetes mellitus type 2. Continue Accu-Cheks and sliding scale insulin. Hypertension. Patient actually hypotensive given the bleed. Metabolic acidosis/lactic acidosis. Etiology likely secondary to hypotension/hypoperfusion from GI bleed. Patient with no obvious signs of infection. SIRS. Etiology secondary to above. Check blood cultures, UA and urine culture. The high probability of a clinically significant, sudden or life threatening deterioration of the [GI respiratory] system(s) required my full and direct a ttention, intervention and personal management. The aggregate critical care time was [32] minutes. This time is in addition to time spent performing reported procedures but includes the following: [x] Data Review and interpretation [x] Patient assessment and monitoring of vital signs [x] Documentation [x] Medication orders and management History Interval history: he patient is a 54 yo male presenting from senior living with melena; pt with h/o cva, non-verbal, with chronic peg tube. h/o gastric ulcer from prior endoscopies. upon arrival, pt had large episode of emesis with clots. intubated for airway protection. hypotensive initially and improved with fluid boluses. Hospitalist Physical - Constitutional Vitals: Temp Pulse Resp BP Pulse Ox 98.6 F 123 H 21 118/77 100 12/19/19 18:48 12/20/19 08:01 12/20/19 08:15 12/20/19 08:15 12/20/19 08:00 General appearance: Present: severe distress, other (Orally intubatedon mech anical ventilation) - EENT Eyes: Present: PERRL, EOM intact ENT: hearing intact, clear oral mucosa, dentition normal - Neck Neck: Present: supple, normal ROM - Respiratory Respiratory effort: normal Respiratory: bilateral: CTA - Cardiovascular Rhythm: regular Heart Sounds: Present: S1 & S2. Absent: gallop, rub - Extremities Extremities: no ischemia, No edema, Full ROM - Abdominal General gastrointestinal: soft, non-tender, non-distended, normal bowel sounds - Integumentary Integumentary: Present: clear, warm, dry - Neurologic Neurologic: CNII-XII intact, moves all extremities Results - Labs CBC & Chem 7: 12/20/19 04:59 12/20/19 04:59 Labs: Laboratory Last Values WBC 11.3 K/mm3 (4.5-11.0) H 12/20/19 04:59 RBC 3.21 M/mm3 (3.65-5.03) L 12/20/19 04:59 Hgb 8.0 gm/dl (11.8-15.2) L 12/20/19 04:59 Hct 26.0 % (35.5-45.6) L D 12/20/19 04:59 MCV 81 fl (84-94) L 12/20/19 04:59 MCH 25 pg (28-32) L 12/20/19 04:59 MCHC 31 % (32-34) L 12/20/19 04:59 RDW 17.7 % (13.2-15.2) H 12/20/19 04:59 Plt Count 223 K/mm3 (140-440) 12/20/19 04:59 Lymph % (Auto) 12.2 % (13.4-35.0) L 12/20/19 04:59 [place] % (Auto) 11.1 % (0.0-7.3) H 12/20/19 04:59 Eos % (Auto) 0.0 % (0.0-4.3) 12/20/19 04:59 Baso % (Auto) 0.2 % (0.0-1.8) 12/20/19 04:59 Lymph # 1.4 K/mm3 (1.2-5.4) 12/20/19 04:59 [place] # 1.2 K/mm3 (0.0-0.8) H 12/20/19 04:59 Eos # 0.0 K/mm3 (0.0-0.4) 12/20/19 04:59 Baso # 0.0 K/mm3 (0.0-0.1) 12/20/19 04:59 Seg Neutrophils % 76.5 % (40.0-70.0) H 12/20/19 04:59 Seg Neutrophils # 8.6 K/mm3 (1.8-7.7) H 12/20/19 04:59 PT 15.3 Sec. (12.2-14.9) H 12/19/19 09:14 INR 1.19 (0.87-1.13) H 12/19/19 09:14 APTT 26.4 Sec. (24.2-36.6) 12/19/19 09:14 ABG pH 7.432 pH Units (7.350-7.450) 12/20/19 12:15 ABG pCO2 36.0 mm Hg 12/20/19 12:15 ABG pO2 150.8 mm Hg (80.0-90.0) H 12/20/19 12:15 ABG HCO3 23.5 mmol/L (20.0-26.0) 12/20/19 12:15 ABG O2 Saturation 98.9 % (95.0-99.0) 12/20/19 12:15 ABG O2 Content 7.8 (0.0-44) 12/20/19 12:15 ABG Base Excess -0.8 mmol/L (-2.0-3.0) 12/20/19 12:15 ABG Hemoglobin 5.5 gm/dl (14.0-18.0) L 12/20/19 12:15 ABG Carboxyhemoglobin 1.9 % (0.0-5.0) 12/20/19 12:15 ABG Methemoglobin 0.5 % (0.0-1.5) 12/20/19 12:15 Oxyhemoglobin 96.5 % (95.0-99.0) 12/20/19 12:15 FiO2 35 % 12/20/19 12:15 Sodium 147 mmol/L (137-145) H 12/20/19 04:59 Potassium 4.0 mmol/L (3.6-5.0) 12/20/19 04:59 Chloride 113.7 mmol/L (98-107) H 12/20/19 04:59 Carbon Dioxide 23 mmol/L (22-30) 12/20/19 04:59 Anion Gap 14 mmol/L 12/20/19 04:59 BUN 29 mg/dL (9-20) H 12/20/19 04:59 Creatinine 0.6 mg/dL (0.8-1.5) L D 12/20/19 04:59 Estimated GFR > 60 ml/min 12/20/19 04:59 BUN/Creatinine Ratio 48 % 12/20/19 04:59 Glucose 172 mg/dL (75-100) H 12/20/19 04:59 POC Glucose 212 (70-105) H 12/19/19 10:05 Lactic Acid 5.10 mmol/L (0.7-2.0) H* 12/19/19 15:55 Calcium 8.6 mg/dL (8.4-10.2) 12/20/19 04:59 Magnesium 2.00 mg/dL (1.7-2.3) 12/19/19 09:14 Total Bilirubin 0.20 mg/dL (0.1-1.2) 12/19/19 09:14 AST 13 units/L (5-40) 12/19/19 09:14 ALT 11 units/L (7-56) 12/19/19 09:14 Alkaline Phosphatase 85 units/L (35-129) 12/19/19 09:14 Ammonia 35.0 umol/L (25-60) 12/19/19 09:14 Total Protein 6.6 g/dL (6.3-8.2) 12/19/19 09:14 Albumin 3.4 g/dL (3.9-5) L 12/19/19 09:14 Albumin/Globulin Ratio 1.1 % 12/19/19 09:14 Lipase 49 units/L (13-60) 12/19/19 09:14 Urine Color Yellow (Yellow) 12/19/19 10:02 Urine Turbidity Slightly-cloudy (Clear) 12/19/19 10:02 Urine pH 5.0 (5.0-7.0) 12/19/19 10:02 Ur Specific [place] 1.024 (1.003-1.030) 12/19/19 10:02 Urine Protein 30 mg/dl mg/dL (Negative) 12/19/19 10:02 Urine Glucose (UA) 50 mg/dL (Negative) 12/19/19 10:02 Urine Ketones Neg mg/dL (Negative) 12/19/19 10:02 Urine Blood Neg (Negative) 12/19/19 10:02 Urine Nitrite Neg (Negative) 12/19/19 10:02 Urine Bilirubin Neg (Negative) 12/19/19 10:02 Urine Urobilinogen < 2.0 mg/dL (<2.0) 12/19/19 10:02 Ur Leukocyte Esterase Neg (Negative) 12/19/19 10:02 Urine WBC (Auto) 2.0 /HPF (0.0-6.0) 12/19/19 10:02 Urine RBC (Auto) 1.0 /HPF (0.0-6.0) 12/19/19 10:02 U Epithel Cells (Auto) < 1.0 /HPF (0-13.0) 12/19/19 10:02 Hyaline Casts 11 /LPF 12/19/19 10:02 Urine Mucus 2+ /HPF 12/19/19 10:02 Urine Sperm Few /HPF ([employer]) 12/19/19 10:02 Blood Type O POSITIVE 12/19/19 09:10 Antibody Screen Negative 12/19/19 09:10 Microbiology: Microbiology 12/19/19 09:14 Peripheral/Venous Blood Culture - Preliminary 12/19/19 09:14 Peripheral/Venous Blood Culture - Preliminary [place]/IV: IV Catheter Type [Right INT / Saline Lock Antecubital] Active Medications - Current Medications Current Medications: Generic Name Dose Route Start Last Admin Trade Name Freq PRN Reason Stop Dose Admin Acetaminophen 650 mg 12/19/19 12:15 Tylenol PO Q4H PRN Fever >101 Lipase/Protease/Amylase 1 each 12/19/19 12:15 Pancreaze 10,500 Unit FEEDTUBE PRN PRN For Clogged Feeding Tube Ascorbic Acid 500 mg 12/19/19 13:00 12/20/19 09:46 Vitamin C PO Not Given Q12HR [facility] Atorvastatin Calcium 20 mg 12/19/19 22:00 12/20/19 02:18 Lipitor PO Not Given QHS NIKOLAS Bismuth Subsalicylate 524 mg 12/19/19 12:15 Pepto Bismol PO Q6H PRN Diarrhea Citalopram Hydrobromide 30 mg 12/19/19 14:00 12/20/19 09:45 Celexa PO Not Given DAILY [facility] Ferrous Sulfate 325 mg 12/20/19 10:00 12/20/19 11:25 Feosol PO Not Given BID NIKOLAS Hydrophilic Ointment 1 applic 12/19/19 10:35 Vaseline Lip Therapy TP Q2HR PRN Dry Lips Sodium Chloride 1,000 mls @ 50 mls/hr 12/19/19 13:15 Nacl 0.9% 1000 Ml IV DIRECT NIKOLAS Vancomycin HCl 1,250 mg/ 275 mls @ 166.667 mls/hr 12/20/19 11:00 12/20/19 12:12 Sodium Chloride IV 166.667 mls/hr Q8H NIKOLAS Administration Latanoprost 1 drops 12/19/19 22:00 12/20/19 00:50 Latanoprost 0.005% OD 1 drops QHS NIKOLAS Administration Lisinopril 10 mg 12/19/19 13:00 12/20/19 09:46 Zestril PO Not Given QDAY [facility] Magnesium Oxide 400 mg 12/20/19 10:00 12/20/19 09:46 Mag-Ox PO Not Given QDAY [facility] Multi-Ingred Cream/Lotion/Oil/Oint 1 applic 12/19/19 10:35 Artificial Tears Ophth Oint OU Q4HR PRN Dry Eye(s) Pantoprazole Sodium 40 mg 12/20/19 11:00 12/20/19 12:12 Protonix IV 40 mg BID NIKOLAS Administration Quetiapine Fumarate 50 mg 12/19/19 14:00 12/20/19 09:45 Seroquel PO Not Given TID NIKOLAS Simple Syrup 15 ml 12/19/19 12:15 Simple Syrup FEEDTUBE PRN PRN Hypoglycemia Sodium Bicarbonate 650 mg 12/19/19 12:15 Sodium Bicarbonate FEEDTUBE PRN PRN For Clogged Feeding Tube Sodium Chloride 10 ml 12/19/19 22:00 12/20/19 11:25 Sodium Chloride Flush Syringe 10 Ml IV 10 ml BID NIKOLAS Administration Sodium Chloride 10 ml 12/19/19 12:13 Sodium Chloride Flush Syringe 10 Ml IV PRN PRN LINE FLUSH Thiamine HCl 100 mg 12/20/19 10:00 12/20/19 11:26 Vitamin B-1 PO Not Given DAILY NIKOLAS Timolol Maleate 1 drops 12/19/19 22:00 12/20/19 11:25 Timoptic OU 1 drops BID NIKOLAS Administration Nutrition/Malnutrition Assess - Dietary Evaluation Nutrition/Malnutrition Findings: Nutrition Notes Start: 12/20/19 08:53 Freq: Status: Active Protocol: Document 12/20/19 08:53 LM (Rec: 12/20/19 09:06 LM [email or web address]) Nutrition Notes Need for Assessment generated from: MD Order Initial or Follow up Assessment Current Diagnosis Acute Kidney Injury,COPD, Diabetes,Hypertension, Respiratory Failure,Stroke Other Pertinent Diagnosis GI bleed, encephalopathy, debility Current Diet NPO Labs/Tests Na 147 BG 172 Pertinent Medications Propofol at 2.238 ml/hr (59 kcal) Height 5 ft 6 in Weight 74.59 kg [place] Body Weight (kg) 64.54 BMI 26.5 Weight Status Overweight Subjective/Other Information MD consult to evaluate nutritional intake. Pt on vent and in ED. Pt is nonverbal. Pt has PEG. Reviewed chart from 11/12/19. Pt weighed 71.9 kg, indicating no wt loss. Previous chart also revealed pt with swallowing difficulty. Burn Absent Trauma Absent Current % PO Negligible Minimum of two criteria No physical signs of malnutrition #1 Nutrition Diagnosis Inadequate oral intake Etiology Mechanical vent, swallowing impaired, GI bleed As Evidenced by Signs and Symptoms pt NPO, with PEG Is patient on ventilator? Yes Is Patient Ambulatory and/or Out of Bed No REE-([facility]-confined to bed) [phone] Calculation Used for Recommendations [facility] Additional Notes Protein: 90-150g (1.2-2g/kg) Fluid: 1 ml/kcal Nutrition Intervention Change Diet Order: TF when medically feasible Nutrition Support: Glucerna 1.2 at 65 ml/hr Flush 200 ml q4h for hypernatremia Flush 100 ml q4h once resolved Kcal 1,872 Protein (gm) 94 Fluid (mL) 1,256 Goal #1 TF start when medically feasible Anticipated Discharge Needs: TF Follow-Up By: 12/22/19 Additional Comments F/U for TF consult
[2019-12-20] MEDS ORDERED: QUEtiapine 25 MG TAB ONE (19:49)
[2019-12-20] MEDS: FERROUS SULFATE 308 MG (62mg Elemental Iron) / 7 ML ELIXIR FEEDTUBE SCH (22:06)
[2019-12-20] MEDS ORDERED: SODIUM CHLORIDE 0.9% 1000 ML 1,000 ML ONE (22:46)
[2019-12-21 05:24] LABS: Basophils % (Auto) 0.5 % (0.0-1.8); Eosinophils # (Auto) 0.1 K/mm3 (0.0-0.4); Eosinophils % (Auto) 1.2 % (0.0-4.3); Hematocrit 20.9 % (35.5-45.6); Hemoglobin 6.5 gm/dl (11.8-15.2); Lymphocytes # (Auto) 1.4 K/mm3 (1.2-5.4); Lymphocytes % (Auto) 16.7 % (13.4-35.0); Mean Corpuscular HGB Conc 31 % (32-34); Mean Corpuscular Volume 82 fl (84-94); Monocytes # (Auto) 0.9 K/mm3 (0.0-0.8); Monocytes % (Auto) 10.8 % (0.0-7.3); Platelet Count 186 K/mm3 (140-440); Red Blood Count 2.55 M/mm3 (3.65-5.03); Red Cell Distribution Width 18.1 % (13.2-15.2)
[2019-12-21 05:32] LABS: BUN/Creatinine Ratio 42; Blood Urea Nitrogen 21 mg/dL (9-20); Calcium 8.5 mg/dL (8.4-10.2); Hemolysis Index 3
[2019-12-21] MEDS ORDERED: SODIUM CHLORIDE 0.9% 500 ML 500 ML IV ONE ×2 (06:41→08:22)
[2019-12-21] MEDS: VANCOMYCIN 1,250 MG in SODIUM CHLORIDE 0.9% 250ML 250 ML IV SCH (08:04)
--- NOTE | 2019-12-21 09:28 | Gastroenterology Progress Note ---
Assessment and Plan 1. Upper gi bleed - due to gastric ulcer; no high risk bleeding stigmata. noted drop in H/H, however no signs of overt bleeding. cont IV PPI, if signs of bleeding develops, then would obtain bleeding scan. Subjective Date of service: 12/21/19 Principal diagnosis: GI bleed, respiratory failure Interval history: pt remains intubated/in ICU. drop in H/H but no overt gi bleeding yesterday/this AM Objective - Exam Narrative Exam: Gen: intubated/sedated CV: RRR Lungs: coarse bs bilaterally/on vent Abd: soft, + g tube, nt - Constitutional Vitals: Temp Pulse Resp BP Pulse Ox 97.2 F L 85 15 102/69 100 12/21/19 04:00 12/21/19 08:00 12/21/19 08:00 12/21/19 08:00 12/21/19 08:12 - Labs CBC & Chem 7: 12/21/19 04:38 12/21/19 04:38 Labs: Laboratory Results - last 24 hr 12/19/19 12/20/19 12/21/19 09:10 12:15 04:38 WBC 8.4 RBC 2.55 L Hgb 6.5 L Hct 20.9 L MCV 82 L MCH 26 L MCHC 31 L RDW 18.1 H Plt Count 186 Lymph % (Auto) 16.7 [place] % (Auto) 10.8 H Eos % (Auto) 1.2 Baso % (Auto) 0.5 Lymph # 1.4 [place] # 0.9 H Eos # 0.1 Baso # 0.0 Seg Neutrophils % 70.8 H Seg Neutrophils # 6.0 ABG pH 7.432 ABG pCO2 36.0 ABG pO2 150.8 H ABG HCO3 23.5 ABG O2 Saturation 98.9 ABG O2 Content 7.8 ABG Base Excess -0.8 ABG Hemoglobin 5.5 L ABG Carboxyhemoglobin 1.9 ABG Methemoglobin 0.5 Oxyhemoglobin 96.5 FiO2 35 Sodium Potassium Chloride Carbon Dioxide Anion Gap BUN Creatinine Estimated GFR BUN/Creatinine Ratio Glucose Calcium Blood Type O POSITIVE Antibody Screen Negative Crossmatch See Detail 12/21/19 04:38 WBC RBC Hgb Hct MCV MCH MCHC RDW Plt Count Lymph % (Auto) [place] % (Auto) Eos % (Auto) Baso % (Auto) Lymph # [place] # Eos # Baso # Seg Neutrophils % Seg Neutrophils # ABG pH ABG pCO2 ABG pO2 ABG HCO3 ABG O2 Saturation ABG O2 Content ABG Base Excess ABG Hemoglobin ABG Carboxyhemoglobin ABG Methemoglobin Oxyhemoglobin FiO2 Sodium 149 H Potassium 3.5 L Chloride 114.9 H Carbon Dioxide 26 Anion Gap 12 BUN 21 H Creatinine 0.5 L Estimated GFR > 60 BUN/Creatinine Ratio 42 Glucose 114 H Calcium 8.5 Blood Type Antibody Screen Crossmatch
[2019-12-21] MEDS: PANTOPRAZOLE 40 MG INJ IV SCH ×2 (09:43→23:12)
[2019-12-21] MEDS: QUEtiapine 25 MG TAB PO SCH ×3 (09:44→23:11)
[2019-12-21] MEDS: ASCORBIC ACID 500 MG TAB PO SCH ×2 (09:44→23:11)
[2019-12-21] MEDS: FERROUS SULFATE 308 MG (62mg Elemental Iron) / 7 ML ELIXIR FEEDTUBE SCH ×2 (09:44→23:33)
[2019-12-21] MEDS: THIAMINE 100 MG TAB PO SCH (09:44)
[2019-12-21] MEDS: CITALOPRAM 10 MG TAB PO SCH (09:44)
[2019-12-21] MEDS: MAGNESIUM OXIDE 400 MG TAB PO SCH (09:44)
[2019-12-21] MEDS: TIMOLOL 0.5% OPHTH SOLN 5 ML OU SCH ×2 (09:45→23:35)
[2019-12-21] MEDS: LISINOPRIL 10 MG TAB PO SCH (09:46)
--- NOTE | 2019-12-21 12:37 | Progress Note ---
Assessment and Plan Acute hypoxemic respiratory failure s/p MVS Acute upper GI bleed s/p EGD Oropharyngeal dysphagia s/p PEG Severe Sepsis with Shock Diabetes mellitus type 2 Hypertension Metabolic acidosis/lactic acidosis - COVID-19 testing pending re: ER exposure -once results are available, discharge to his facility if COVID-19 negative - no new issues otherwise; continue all supportive care as outline - supplemental oxygen as needed to keep O2 sat's > 90% - continue contact and droplet isolation and follow clinically due to COVID-19 exposure - prn bronchodilators with pulmonary hygiene per RT - continue anti-infectives per ID recommendations for bacteremia / sepsis to complete course. Still has leukocytosis - Aspiration precautions, HOB .40 -Enteric nutrition - mobility protocol, off loading, and skin assessment per protocol for pressure ulcer prevention - continue accuchecks with glycemic control per SSI for target BG < 180 mg/dl - GI & VTE prophylaxis with PPI & SCD's - Flu & pneumovax addressed per protocol - continue other care per attending / other consultants ... re-evaluate in am & prn -OK to transfer out of the ICU Subjective Date of service: 12/21/19 Principal diagnosis: GI bleed, respiratory failure Interval history: Patient is seen today for: Acute upper GI bleed; Severe Sepsis with Shock; Acute hypoxemic respiratory failure s/p MVS; DM II; HTN; Metabolic acidosis/lactic acidosis Seen and examined at bedside; 24hour events reviewed; nursing and respiratory care staff consulted; no adverse overnight events reported to me; resting peacefully in bed; no gross G.I. bleeding; no emesis or overt aspiration, non- verbal Extubated but on supplemental oxygen at 3L/min Objective - Exam Narrative Exam: Vitals reviewed. General appearance: Present: in no distress, non verbal - EENT Eyes: Present: PERRL, EOM intact ENT: - Neck Neck: Present: supple, normal ROM - Respiratory Respiratory effort: normal Respiratory: bilateral: CTA - Cardiovascular Rhythm: regular Heart Sounds: Present: S1 & S2. Absent: gallop, rub - Extremities Extremities: no ischemia, No edema, Full ROM - Abdominal General gastrointestinal: soft, non-tender, non-distended, normal bowel sounds PEG in place - Integumentary Integumentary: Present: clear, warm, dry - Neurologic Neurologic: Unable to assess, non verbal Vital Signs - 12hr 12/21/19 12/21/19 12/21/19 01:01 02:00 03:00 Temperature Pulse Rate 86 97 H 91 H Pulse Rate [ From Monitor] Respiratory 17 15 17 Rate Blood Pressure 104/74 120/72 O2 Sat by Pulse 100 100 100 Oximetry 12/21/19 12/21/19 12/21/19 03:48 04:00 05:00 Temperature 97.2 F L Pulse Rate 85 90 Pulse Rate [ 86 From Monitor] Respiratory 20 22 20 Rate Blood Pressure 96/68 110/78 O2 Sat by Pulse 100 100 100 Oximetry 12/21/19 12/21/19 12/21/19 06:00 07:00 08:00 Temperature Pulse Rate 83 100 H 85 Pulse Rate [ 85 From Monitor] Respiratory 21 15 15 Rate Blood Pressure 96/66 92/73 102/69 O2 Sat by Pulse 100 100 100 Oximetry 12/21/19 12/21/19 12/21/19 08:12 09:00 10:00 Temperature Pulse Rate 82 88 Pulse Rate [ From Monitor] Respiratory 18 28 H Rate Blood Pressure 113/71 114/76 O2 Sat by Pulse 100 100 100 Oximetry 12/21/19 12/21/19 12/21/19 11:00 11:38 11:53 Temperature 97.8 F 97.8 F Pulse Rate 91 H 89 88 Pulse Rate [ From Monitor] Respiratory 20 18 22 Rate Blood Pressure 99/64 99/64 103/66 O2 Sat by Pulse 100 100 100 Oximetry 12/21/19 12:00 Temperature Pulse Rate 85 Pulse Rate [ From Monitor] Respiratory 20 Rate Blood Pressure 103/66 O2 Sat by Pulse 100 Oximetry CBC and BMP: 12/26/19 05:00 12/26/19 05:00 ABG, PT/INR, D-dimer: ABG ABG pH 7.432 pH Units (7.350-7.450) 12/20/19 12:15 ABG pCO2 36.0 mm Hg 12/20/19 12:15 ABG pO2 150.8 mm Hg (80.0-90.0) H 12/20/19 12:15 ABG O2 Saturation 98.9 % (95.0-99.0) 12/20/19 12:15 PT/INR, D-dimer PT 15.3 Sec. (12.2-14.9) H 03/22/20 09:14 INR 1.19 (0.87-1.13) H 12/19/19 09:14 Abnormal lab findings: Abnormal Labs 12/19/19 12/19/19 12/19/19 09:10 09:14 09:14 WBC 12.1 H RBC Hgb 10.0 L Hct 32.3 L MCV 81 L MCH 25 L MCHC 31 L RDW 17.7 H Lymph % (Auto) Sac % (Auto) Sac # 0.9 H Seg Neutrophils % 78.2 H Seg Neutrophils # 9.5 H PT 15.3 H INR 1.19 H ABG pH ABG pO2 ABG HCO3 ABG O2 Saturation ABG Base Excess ABG Hemoglobin Sodium Potassium Chloride Carbon Dioxide BUN Creatinine Glucose POC Glucose Lactic Acid Albumin Crossmatch See Detail 12/19/19 12/19/19 12/19/19 09:14 09:14 10:05 WBC RBC Hgb Hct MCV MCH MCHC RDW Lymph % (Auto) Sac % (Auto) Sac # Seg Neutrophils % Seg Neutrophils # PT INR ABG pH ABG pO2 ABG HCO3 ABG O2 Saturation ABG Base Excess ABG Hemoglobin Sodium Potassium Chloride Carbon Dioxide 20 L BUN 55 H Creatinine Glucose 222 H POC Glucose 212 H Lactic Acid 3.10 H* Albumin 3.4 L Crossmatch 12/19/19 12/19/19 12/19/19 10:30 12:30 15:55 WBC RBC Hgb Hct MCV MCH MCHC RDW Lymph % (Auto) Sac % (Auto) Sac # Seg Neutrophils % Seg Neutrophils # PT INR ABG pH 7.277 L ABG pO2 195.1 H ABG HCO3 19.2 L ABG O2 Saturation 99.2 H ABG Base Excess -7.1 L ABG Hemoglobin 9.4 L Sodium Potassium Chloride Carbon Dioxide BUN Creatinine Glucose POC Glucose Lactic Acid 2.80 H* 5.10 H* Albumin Crossmatch 12/20/19 12/20/19 12/20/19 04:20 04:59 04:59 WBC 11.3 H RBC 3.21 L Hgb 8.0 L Hct 26.0 L D MCV 81 L MCH 25 L MCHC 31 L RDW 17.7 H Lymph % (Auto) 12.2 L Sac % (Auto) 11.1 H Sac # 1.2 H Seg Neutrophils % 76.5 H Seg Neutrophils # 8.6 H PT INR ABG pH ABG pO2 139.7 H ABG HCO3 ABG O2 Saturation ABG Base Excess ABG Hemoglobin 9.2 L Sodium 147 H Potassium Chloride 113.7 H Carbon Dioxide BUN 29 H Creatinine 0.6 L D Glucose 172 H POC Glucose Lactic Acid Albumin Crossmatch 12/20/19 12/21/19 12/21/19 12:15 04:38 04:38 WBC RBC 2.55 L Hgb 6.5 L Hct 20.9 L MCV 82 L MCH 26 L MCHC 31 L RDW 18.1 H Lymph % (Auto) Sac % (Auto) 10.8 H Sac # 0.9 H Seg Neutrophils % 70.8 H Seg Neutrophils # PT INR ABG pH ABG pO2 150.8 H ABG HCO3 ABG O2 Saturation ABG Base Excess ABG Hemoglobin 5.5 L Sodium 149 H Potassium 3.5 L Chloride 114.9 H Carbon Dioxide BUN 21 H Creatinine 0.5 L Glucose 114 H POC Glucose Lactic Acid Albumin Crossmatch
--- NOTE | 2019-12-21 13:12 | Progress Note ---
Assessment and Plan Assessment and plan: Acute upper GI bleed. Patient underwent endoscopy which revealed esophagitis in the lower third of the esophagus. There was a cratered, clean based ulcer in the incisura of the stomach. No high risk bleeding stigmata was seen. Continue to monitor H&H and transfuse for hemoglobin less than 7. Continue IV PPI. Acute hypoxic respiratory failure. was intubated, now extubated, Pulmonary following. Diabetes mellitus type 2. Continue Accu-Cheks and sliding scale insulin. Hypertension. Patient actually hypotensive given the bleed. Metabolic acidosis/lactic acidosis. Etiology likely secondary to hypotension/hypoperfusion from GI bleed. Patient with no obvious signs of infection. SIRS. Etiology secondary to above. Check blood cultures, UA and urine culture. 12/21/19 patient with acute resp failure. was intubated, now extubated. Transfer to medical floor History Interval history: Patient presented with GI bleed Hospitalist Physical - Physical exam Narrative exam: GEN: Not in acute distress, lying in bed HEENT: Normocephalic, atraumatic, Neck: supple, No JVD Lungs: clear, no crackles, heart;S1 and S2 reg, tachy, no murmurs, rubs or gallop Abd:soft, non tender, non distended, normal bowel sounds, PEG tube Ext: No edema, no clubbing, no cyanosis, Neuro: Awake,alert, aphasia,prev stroke - Constitutional Vitals: Temp Pulse Resp BP Pulse Ox 97.8 F 87 22 107/67 100 12/21/19 12:53 12/21/19 12:53 12/21/19 12:53 12/21/19 12:53 12/21/19 12:53 General appearance: Present: other (Orally intubatedon mechanical ventilation) Results - Labs CBC & Chem 7: 12/23/19 06:38 12/23/19 06:38 Labs: Laboratory Last Values WBC 8.4 K/mm3 (4.5-11.0) 12/21/19 04:38 RBC 2.55 M/mm3 (3.65-5.03) L 12/21/19 04:38 Hgb 6.5 gm/dl (11.8-15.2) L 12/21/19 04:38 Hct 20.9 % (35.5-45.6) L 12/21/19 04:38 MCV 82 fl (84-94) L 12/21/19 04:38 MCH 26 pg (28-32) L 12/21/19 04:38 MCHC 31 % (32-34) L 12/21/19 04:38 RDW 18.1 % (13.2-15.2) H 12/21/19 04:38 Plt Count 186 K/mm3 (140-440) 12/21/19 04:38 Lymph % (Auto) 16.7 % (13.4-35.0) 12/21/19 04:38 [place] % (Auto) 10.8 % (0.0-7.3) H 12/21/19 04:38 Eos % (Auto) 1.2 % (0.0-4.3) 12/21/19 04:38 Baso % (Auto) 0.5 % (0.0-1.8) 12/21/19 04:38 Lymph # 1.4 K/mm3 (1.2-5.4) 12/21/19 04:38 [place] # 0.9 K/mm3 (0.0-0.8) H 12/21/19 04:38 Eos # 0.1 K/mm3 (0.0-0.4) 12/21/19 04:38 Baso # 0.0 K/mm3 (0.0-0.1) 12/21/19 04:38 Seg Neutrophils % 70.8 % (40.0-70.0) H 12/21/19 04:38 Seg Neutrophils # 6.0 K/mm3 (1.8-7.7) 12/21/19 04:38 PT 15.3 Sec. (12.2-14.9) H 12/19/19 09:14 INR 1.19 (0.87-1.13) H 12/19/19 09:14 APTT 26.4 Sec. (24.2-36.6) 12/19/19 09:14 ABG pH 7.432 pH Units (7.350-7.450) 12/20/19 12:15 ABG pCO2 36.0 mm Hg 12/20/19 12:15 ABG pO2 150.8 mm Hg (80.0-90.0) H 12/20/19 12:15 ABG HCO3 23.5 mmol/L (20.0-26.0) 12/20/19 12:15 ABG O2 Saturation 98.9 % (95.0-99.0) 12/20/19 12:15 ABG O2 Content 7.8 (0.0-44) 12/20/19 12:15 ABG Base Excess -0.8 mmol/L (-2.0-3.0) 12/20/19 12:15 ABG Hemoglobin 5.5 gm/dl (14.0-18.0) L 12/20/19 12:15 ABG Carboxyhemoglobin 1.9 % (0.0-5.0) 12/20/19 12:15 ABG Methemoglobin 0.5 % (0.0-1.5) 12/20/19 12:15 Oxyhemoglobin 96.5 % (95.0-99.0) 12/20/19 12:15 FiO2 35 % 12/20/19 12:15 Sodium 149 mmol/L (137-145) H 12/21/19 04:38 Potassium 3.5 mmol/L (3.6-5.0) L 12/21/19 04:38 Chloride 114.9 mmol/L (98-107) H 12/21/19 04:38 Carbon Dioxide 26 mmol/L (22-30) 12/21/19 04:38 Anion Gap 12 mmol/L 12/21/19 04:38 BUN 21 mg/dL (9-20) H 12/21/19 04:38 Creatinine 0.5 mg/dL (0.8-1.5) L 12/21/19 04:38 Estimated GFR > 60 ml/min 12/21/19 04:38 BUN/Creatinine Ratio 42 % 12/21/19 04:38 Glucose 114 mg/dL (75-100) H 12/21/19 04:38 POC Glucose 212 (70-105) H 12/19/19 10:05 Lactic Acid 5.10 mmol/L (0.7-2.0) H* 12/19/19 15:55 Calcium 8.5 mg/dL (8.4-10.2) 12/21/19 04:38 Magnesium 2.00 mg/dL (1.7-2.3) 12/19/19 09:14 Total Bilirubin 0.20 mg/dL (0.1-1.2) 12/19/19 09:14 AST 13 units/L (5-40) 12/19/19 09:14 ALT 11 units/L (7-56) 12/19/19 09:14 Alkaline Phosphatase 85 units/L (35-129) 12/19/19 09:14 Ammonia 35.0 umol/L (25-60) 12/19/19 09:14 Total Protein 6.6 g/dL (6.3-8.2) 12/19/19 09:14 Albumin 3.4 g/dL (3.9-5) L 12/19/19 09:14 Albumin/Globulin Ratio 1.1 % 12/19/19 09:14 Lipase 49 units/L (13-60) 12/19/19 09:14 Urine Color Yellow (Yellow) 12/19/19 10:02 Urine Turbidity Slightly-cloudy (Clear) 12/19/19 10:02 Urine pH 5.0 (5.0-7.0) 12/19/19 10:02 Ur Specific [place] 1.024 (1.003-1.030) 12/19/19 10:02 Urine Protein 30 mg/dl mg/dL (Negative) 12/19/19 10:02 Urine Glucose (UA) 50 mg/dL (Negative) 12/19/19 10:02 Urine Ketones Neg mg/dL (Negative) 12/19/19 10:02 Urine Blood Neg (Negative) 12/19/19 10:02 Urine Nitrite Neg (Negative) 12/19/19 10:02 Urine Bilirubin Neg (Negative) 12/19/19 10:02 Urine Urobilinogen < 2.0 mg/dL (<2.0) 12/19/19 10:02 Ur Leukocyte Esterase Neg (Negative) 12/19/19 10:02 Urine WBC (Auto) 2.0 /HPF (0.0-6.0) 12/19/19 10:02 Urine RBC (Auto) 1.0 /HPF (0.0-6.0) 12/19/19 10:02 U Epithel Cells (Auto) < 1.0 /HPF (0-13.0) 12/19/19 10:02 Hyaline Casts 11 /LPF 12/19/19 10:02 Urine Mucus 2+ /HPF 12/19/19 10:02 Urine Sperm Few /HPF (SENIOR QUALITY ASSURANCE ANALYST) 12/19/19 10:02 Blood Type O POSITIVE 12/19/19 09:10 Antibody Screen Negative 12/19/19 09:10 Crossmatch See Detail 12/19/19 09:10 Microbiology: Microbiology 12/19/19 09:14 Peripheral/Venous Blood Culture - Final Beta Hemolytic Strep Group B 12/19/19 12:35 Tracheal Aspirate Sputum Culture - Preliminary Beta Hemolytic Strep Group B Gram Negative Nav 12/19/19 09:14 Peripheral/Venous Blood Culture - Preliminary Beta Hemolytic Strep Group B [place]/IV: Voiding Method Indwelling Catheter IV Catheter Type [Left Triple Lumen Cath Subclavian] IV Catheter Type [Right INT / Saline Lock Antecubital] Active Medications - Current Medications Current Medications: Generic Name Dose Route Start Last Admin Trade Name Freq PRN Reason Stop Dose Admin Acetaminophen 650 mg 12/19/19 12:15 Tylenol PO Q4H PRN Fever >101 Lipase/Protease/Amylase 1 each 12/19/19 12:[address] 10,500 Unit FEEDTUBE PRN PRN For Clogged Feeding Tube Ascorbic Acid 500 mg 12/19/19 13:00 12/21/19 09:44 Vitamin C PO 500 mg Q12HR NIKOLAS Administration Atorvastatin Calcium 20 mg 12/19/19 22:00 12/20/19 22:07 Lipitor PO 20 mg QHS NIKOLAS Administration Bismuth Subsalicylate 524 mg 12/19/19 12:15 Pepto Bismol PO Q6H PRN Diarrhea Citalopram Hydrobromide 30 mg 12/19/19 14:00 12/21/19 09:44 Celexa PO 30 mg DAILY NIKOLAS Administration Ferrous Sulfate 308 mg 12/20/19 22:00 12/21/19 09:44 Ferrous Sulfate FEEDTUBE 308 mg BID NIKOLAS Administration Hydrophilic Ointment 1 applic 12/19/19 10:35 Vaseline Lip Therapy TP Q2HR PRN Dry Lips Sodium Chloride 1,000 mls @ 50 mls/hr 12/19/19 13:15 12/21/19 00:05 Nacl 0.9% 1000 Ml IV 50 mls/hr DIRECT NIKOLAS Administration Levofloxacin/Dextrose 750 mg in 150 mls @ 100 mls/hr 12/20/19 14:00 12/21/19 09:43 Levaquin 750mg/150ml IV 100 mls/hr Q24HR NIKOLAS Administration Protocol Latanoprost 1 drops 12/19/19 22:00 12/20/19 22:07 Latanoprost 0.005% OD 1 drops QHS NIKOLAS Administration Lisinopril 10 mg 12/19/19 13:00 12/21/19 09:46 Zestril PO Not Given QDAY NIKOLAS Magnesium Oxide 400 mg 12/20/19 10:00 12/21/19 09:44 Mag-Ox PO 400 mg QDAY NIKOLAS Administration Multi-Ingred Cream/Lotion/Oil/Oint 1 applic 12/19/19 10:35 Artificial Tears Ophth Oint OU Q4HR PRN Dry Eye(s) Pantoprazole Sodium 40 mg 12/20/19 11:00 12/21/19 09:43 Protonix IV 40 mg BID NIKOLAS Administration Quetiapine Fumarate 50 mg 12/19/19 14:00 12/21/19 09:44 Seroquel PO 50 mg TID NIKOLAS Administration Simple Syrup 15 ml 12/19/19 12:15 Simple Syrup FEEDTUBE PRN PRN Hypoglycemia Sodium Bicarbonate 650 mg 12/19/19 12:15 Sodium Bicarbonate FEEDTUBE PRN PRN For Clogged Feeding Tube Sodium Chloride 10 ml 12/19/19 22:00 12/21/19 09:45 Sodium Chloride Flush Syringe 10 Ml IV 10 ml BID NIKOLAS Administration Sodium Chloride 10 ml 12/19/19 12:13 Sodium Chloride Flush Syringe 10 Ml IV PRN PRN LINE FLUSH Thiamine HCl 100 mg 12/20/19 10:00 12/21/19 09:44 Vitamin B-1 PO 100 mg DAILY NIKOLAS Administration Timolol Maleate 1 drops 12/19/19 22:00 12/21/19 09:45 Timoptic OU 1 drops BID NIKOLAS Administration Nutrition/Malnutrition Assess - Dietary Evaluation Nutrition/Malnutrition Findings: Nutrition Notes Start: 12/20/19 08:53 Freq: Status: Active Protocol: Document 12/20/19 08:53 LM (Rec: 12/20/19 09:06 LM [email or web address]) Nutrition Notes Need for Assessment generated from: MD Order Initial or Follow up Assessment Current Diagnosis Acute Kidney Injury,COPD, Diabetes,Hypertension, Respiratory Failure,Stroke Other Pertinent Diagnosis GI bleed, encephalopathy, debility Current Diet NPO Labs/Tests Na 147 BG 172 Pertinent Medications Propofol at 2.238 ml/hr (59 kcal) Height 5 ft 6 in Weight 74.59 kg [place] Body Weight (kg) 64.54 BMI 26.5 Weight Status Overweight Subjective/Other Information MD consult to evaluate nutritional intake. Pt on vent and in ED. Pt is nonverbal. Pt has PEG. Reviewed chart from 11/12/19. Pt weighed 71.9 kg, indicating no wt loss. Previous chart also revealed pt with swallowing difficulty. Burn Absent Trauma Absent Current % PO Negligible Minimum of two criteria No physical signs of malnutrition #1 Nutrition Diagnosis Inadequate oral intake Etiology Mechanical vent, swallowing impaired, GI bleed As Evidenced by Signs and Symptoms pt NPO, with PEG Is patient on ventilator? Yes Is Patient Ambulatory and/or Out of Bed No REE-([facility]-confined to bed) 9941.856 Calculation Used for Recommendations [facility] Additional Notes Protein: 90-150g (1.2-2g/kg) Fluid: 1 ml/kcal Nutrition Intervention Change Diet Order: TF when medically feasible Nutrition Support: Glucerna 1.2 at 65 ml/hr Flush 200 ml q4h for hypernatremia Flush 100 ml q4h once resolved Kcal 1,872 Protein (gm) 94 Fluid (mL) 1,256 Goal #1 TF start when medically feasible Anticipated Discharge Needs: TF Follow-Up By: 12/22/19 Additional Comments F/U for TF consult
[2019-12-21] MEDS ORDERED: VANCOMYCIN PHARMACY TO DOSE IV SCH (18:00)
[2019-12-21] MEDS: DEXTROSE 5% IN WATER 1,000 ML IV SCH (18:35)
--- NOTE | 2019-12-21 21:13 | Progress Note ---
Assessment and Plan Acute upper GI bleed Severe Sepsis witrh Shock Acute hypoxemic respiratory failure Diabetes mellitus type 2 Hypertension Metabolic acidosis/lactic acidosis - supplemental oxygen as needed to keep O2 sat's > 90% - continue contact and droplet isolation and follow clinically due to COVID-19 exposure - prn bronchodilators with pulmonary hygiene per RT - continue antiinfective's per ID recommendations for bacteremia / sepsis - PT/OT as tolerated - mobility protocols for pressure ulcer prophylaxis - continue accuchecks with glycemic control per SSI for target BG < 180 mg/dl - GI & VTE prophylaxis with PPI & SCD's - Flu & pneumovax addressed per protocol - continue other care per attending / other consultants ... re-evaluate in am & prn Subjective Date of service: 12/21/19 Principal diagnosis: GI bleed, respiratory failure Interval history: Patient is seen today for: Acute upper GI bleed; Severe Sepsis witrh Shock; Acute hypoxemic respiratory failure; DM II; HTN; Metabolic acidosis/lactic acidosis Seen and examined at bedside; 24hour events reviewed; nursing and respiratory care staff consulted; no adverse overnight events reported to me; resting peacefully in bed; no gross G.I. bleeding; no emesis or overt aspiration Objective Vital Signs - 12hr 12/21/19 12/21/19 12/21/19 10:00 11:00 11:38 Temperature 97.8 F Pulse Rate 88 91 H 89 Pulse Rate [ From Monitor] Respiratory 28 H 20 18 Rate Blood Pressure 114/76 99/64 99/64 O2 Sat by Pulse 100 100 100 Oximetry 12/21/19 12/21/19 12/21/19 11:53 12:00 12:10 Temperature 97.8 F Pulse Rate 88 85 86 Pulse Rate [ From Monitor] Respiratory 22 20 22 Rate Blood Pressure 103/66 103/66 103/66 O2 Sat by Pulse 100 100 100 Oximetry 12/21/19 12/21/19 12/21/19 12:20 12:23 12:30 Temperature 97.9 F Pulse Rate 91 H 81 84 Pulse Rate [ From Monitor] Respiratory 17 22 22 Rate Blood Pressure 103/66 105/68 103/66 O2 Sat by Pulse 100 100 100 Oximetry 12/21/19 12/21/19 12/21/19 12:40 12:50 12:53 Temperature 97.8 F Pulse Rate 83 81 87 Pulse Rate [ From Monitor] Respiratory 23 23 22 Rate Blood Pressure 103/66 103/66 107/67 O2 Sat by Pulse 100 100 100 Oximetry 12/21/19 12/21/19 12/21/19 13:23 13:53 14:00 Temperature 98.7 F 98.6 F Pulse Rate 86 84 86 Pulse Rate [ From Monitor] Respiratory 19 19 Rate Blood Pressure 111/73 112/73 111/73 O2 Sat by Pulse 100 100 Oximetry 12/21/19 15:00 Temperature Pulse Rate Pulse Rate [ 85 From Monitor] Respiratory 15 Rate Blood Pressure O2 Sat by Pulse 100 Oximetry Constitutional: no acute distress Eyes: non-icteric ENT: oropharynx moist Neck: supple, no lymphadenopathy, no JVD Effort: mildly labored Ascultation: Bilateral: rhonchi Percussion: Bilateral: not dull Cardiovascular: regular rate and rhythm Gastrointestinal: normoactive bowel sounds, soft, non-tender, non-distended Integumentary: rash Extremities: no cyanosis, no edema, pulses normal Neurologic: unable to assess Psychiatric: other (unable to assess) CBC and BMP: 12/22/19 10:34 12/22/19 10:34 ABG, PT/INR, D-dimer: ABG ABG pH 7.432 pH Units (7.350-7.450) 12/20/19 12:15 ABG pCO2 36.0 mm Hg 12/20/19 12:15 ABG pO2 150.8 mm Hg (80.0-90.0) H 12/20/19 12:15 ABG O2 Saturation 98.9 % (95.0-99.0) 12/20/19 12:15 PT/INR, D-dimer PT 15.3 Sec. (12.2-14.9) H 12/19/19 09:14 INR 1.19 (0.87-1.13) H 12/19/19 09:14 Abnormal lab findings: Abnormal Labs 12/19/19 12/19/19 12/19/19 09:10 09:14 09:14 WBC 12.1 H RBC Hgb 10.0 L Hct 32.3 L MCV 81 L MCH 25 L MCHC 31 L RDW 17.7 H Lymph % (Auto) [place] % (Auto) [place] # 0.9 H Seg Neutrophils % 78.2 H Seg Neutrophils # 9.5 H PT 15.3 H INR 1.19 H ABG pH ABG pO2 ABG HCO3 ABG O2 Saturation ABG Base Excess ABG Hemoglobin Sodium Potassium Chloride Carbon Dioxide BUN Creatinine Glucose POC Glucose Lactic Acid Albumin Crossmatch See Detail 12/19/19 12/19/19 12/19/19 09:14 09:14 10:05 WBC RBC Hgb Hct MCV MCH MCHC RDW Lymph % (Auto) [place] % (Auto) [place] # Seg Neutrophils % Seg Neutrophils # PT INR ABG pH ABG pO2 ABG HCO3 ABG O2 Saturation ABG Base Excess ABG Hemoglobin Sodium Potassium Chloride Carbon Dioxide 20 L BUN 55 H Creatinine Glucose 222 H POC Glucose 212 H Lactic Acid 3.10 H* Albumin 3.4 L Crossmatch 12/19/19 12/19/19 12/19/19 10:30 12:30 15:55 WBC RBC Hgb Hct MCV MCH MCHC RDW Lymph % (Auto) [place] % (Auto) [place] # Seg Neutrophils % Seg Neutrophils # PT INR ABG pH 7.277 L ABG pO2 195.1 H ABG HCO3 19.2 L ABG O2 Saturation 99.2 H ABG Base Excess -7.1 L ABG Hemoglobin 9.4 L Sodium Potassium Chloride Carbon Dioxide BUN Creatinine Glucose POC Glucose Lactic Acid 2.80 H* 5.10 H* Albumin Crossmatch 12/20/19 12/20/19 12/20/19 04:20 04:59 04:59 WBC 11.3 H RBC 3.21 L Hgb 8.0 L Hct 26.0 L D MCV 81 L MCH 25 L MCHC 31 L RDW 17.7 H Lymph % (Auto) 12.2 L [place] % (Auto) 11.1 H [place] # 1.2 H Seg Neutrophils % 76.5 H Seg Neutrophils # 8.6 H PT INR ABG pH ABG pO2 139.7 H ABG HCO3 ABG O2 Saturation ABG Base Excess ABG Hemoglobin 9.2 L Sodium 147 H Potassium Chloride 113.7 H Carbon Dioxide BUN 29 H Creatinine 0.6 L D Glucose 172 H POC Glucose Lactic Acid Albumin Crossmatch 12/20/19 12/21/19 12/21/19 12:15 04:38 04:38 WBC RBC 2.55 L Hgb 6.5 L Hct 20.9 L MCV 82 L MCH 26 L MCHC 31 L RDW 18.1 H Lymph % (Auto) [place] % (Auto) 10.8 H [place] # 0.9 H Seg Neutrophils % 70.8 H Seg Neutrophils # PT INR ABG pH ABG pO2 150.8 H ABG HCO3 ABG O2 Saturation ABG Base Excess ABG Hemoglobin 5.5 L Sodium 149 H Potassium 3.5 L Chloride 114.9 H Carbon Dioxide BUN 21 H Creatinine 0.5 L Glucose 114 H POC Glucose Lactic Acid Albumin Crossmatch Allied health notes reviewed: nursing
[2019-12-21] MEDS: POTASSIUM CHLORIDE 10 MEQ 10 MEQ/100 ML BAG IV SCH (23:10)
[2019-12-21] MEDS: LATANOPROST 0.005% OPHTH SOLN 2.5 ML OD SCH (23:37)
[2019-12-22 00:14] LABS: Hematocrit 24.8 % (35.5-45.6); Hemoglobin 7.7 gm/dl (11.8-15.2)
[2019-12-22] MEDS: POTASSIUM CHLORIDE 10 MEQ 10 MEQ/100 ML BAG IV SCH (00:25)
[2019-12-22] MEDS: VANCOMYCIN/NS 1 GM/250 ML 1 GM/250 ML BAG IV SCH ×4 (02:10→22:27)
[2019-12-22] MEDS: QUEtiapine 25 MG TAB PO SCH ×4 (05:00→22:33)
[2019-12-22] MEDS: VANCOMYCIN 1,250 MG in SODIUM CHLORIDE 0.9% 250ML 250 ML IV SCH (07:11)
[2019-12-22] MEDS: ASCORBIC ACID 500 MG TAB PO SCH ×3 (07:55→22:28)
[2019-12-22] MEDS ORDERED: SIMPLE SYRUP 15 ML FEEDTUBE PRN ×2 (09:51→10:05)
--- NOTE | 2019-12-22 10:04 | Gastroenterology Progress Note ---
Assessment and Plan 1. Upper GI bleed - egd with cratered, clean based gastric ulcer. no high risk bleeding stigmata. noted drop in H/H after admission which has since stabilized. no further signs of overt bleeding. PPI BID dosing, okay to resume tube feeds from gi stand point. repeat EGD in 2-3 months to assess for healing of ulcer. will sign off, please call as needed or with questions. Subjective Date of service: 12/22/19 Principal diagnosis: GI bleed, respiratory failure Interval history: pt transferred to floor; no bm's/signs of bleeding overnight/today Objective - Constitutional Vitals: Temp Pulse Resp BP Pulse Ox 98.7 F 89 18 118/72 97 12/21/19 21:08 12/21/19 21:08 12/21/19 21:08 12/21/19 21:08 12/21/19 21:08 General appearance: no acute distress, other (non verbal) - Respiratory Respiratory effort: normal Respiratory: bilateral: CTA - Cardiovascular Rhythm: regular Heart Sounds: Present: S1 & S2 - Gastrointestinal General gastrointestinal: Present: soft, non-tender, other (+ g tube) - Labs CBC & Chem 7: 12/21/19 23:02 12/21/19 04:38 Labs: Laboratory Results - last 24 hr 12/19/19 12/21/19 12/21/19 09:10 23:02 23:02 Hgb 7.7 L Hct 24.8 L Random Vancomycin 7.5 Blood Type O POSITIVE Antibody Screen Negative Crossmatch See Detail
[2019-12-22] MEDS ORDERED: LIPASE 10,500/PROTEASE 25,000/AMYLASE 43,750 (UNITS) DR CAP FEEDTUBE PRN (10:05)
[2019-12-22] MEDS ORDERED: SODIUM BICARBONATE 325 MG TAB FEEDTUBE PRN (10:05)
[2019-12-22] MEDS: PANTOPRAZOLE 40 MG INJ IV SCH ×2 (10:12→22:28)
[2019-12-22] MEDS: FERROUS SULFATE 308 MG (62mg Elemental Iron) / 7 ML ELIXIR FEEDTUBE SCH ×2 (10:12→23:57)
[2019-12-22] MEDS: CITALOPRAM 10 MG TAB PO SCH (10:12)
[2019-12-22] MEDS: THIAMINE 100 MG TAB PO SCH (10:13)
[2019-12-22] MEDS: MAGNESIUM OXIDE 400 MG TAB PO SCH (10:13)
[2019-12-22] MEDS: LISINOPRIL 10 MG TAB PO SCH (10:13)
[2019-12-22] MEDS: TIMOLOL 0.5% OPHTH SOLN 5 ML OU SCH ×2 (10:14→22:29)
[2019-12-22 11:35] LABS: Hemoglobin 8.4 gm/dl (11.8-15.2); Mean Corpuscular HGB Conc 31 % (32-34); Mean Corpuscular Volume 83 fl (84-94); Platelet Count 216 K/mm3 (140-440); Red Blood Count 3.24 M/mm3 (3.65-5.03); Red Cell Distribution Width 17.7 % (13.2-15.2)
[2019-12-22 11:44] LABS: BUN/Creatinine Ratio 34; Blood Urea Nitrogen 17 mg/dL (9-20); Calcium 8.7 mg/dL (8.4-10.2); Hemolysis Index 16
--- NOTE | 2019-12-22 16:34 | Event Note ---
Date: 12/22/19 Patient has been on contact and droplet precaution by error. Nurse Lamar Valencia, ICU had mentioned to me yesterday that patient on isolation because he was in a room with patient with Covid-19 positive. I discussed with Shanika, clinical nurse manager, yesterday and today. She told me today that this is an error, patient was not in same room with Covid positive patient, but a different room. Will dc isolation., Transfer to another floor.
--- NOTE | 2019-12-22 18:05 | Consultation ---
History of Present Illness - Reason for Consult Consult date: 12/22/19 - History of Present Illness 54-year-old man who is a resident of a [facility] facility with a past medical history of COPD, diabetes, stroke, encephalopathy, debility admitted to the hospital with an upper GI bleed. Patient is nonverbal, as such the history is taken from the chart. Per the staff at his facility he was found to have coffee-ground emesis the morning of admission and passing bright red blood from his rectum. He was subsequently brought to the emergency room and found to be hypotensive and admitted to the ICU. He underwent a EGD which showed a clean- based ulcer. He was then transferred to the floors. He is subsequently found to have a group B strep bacteremia. Afebrile since admission with improved white count but is now 8. He is currently receiving vancomycin. Blood cultures with 4/4 group B strep, tracheal aspirate culture with group B strep and Proteus mirabilis. Imaging personally reviewed: Chest x-ray: No acute abnormality. Life support systems in place. Review of systems: Unable to be obtained secondary to non-verbal status. Past History Past Medical History: hypertension, other (CVA) Past Surgical History: bowel surgery (peg tube) Social history: other (correction) Family history: no significant family history Medications and Allergies Allergies Allergy/AdvReac Type Severity Reaction Status Date / Time Penicillins Allergy Unknown Verified 11/06/19 07:48 Home Medications Medication Instructions Recorded Confirmed Last Taken Type Citalopram Hydrobromide [celeXA] 30 mg PO DAILY 02/07/16 12/21/19 02/06/16 History Acetaminophen [Acetaminophen TAB] 650 mg PO Q4HR PRN 01/25/19 12/21/19 Unknown History AtorvaSTATin [Lipitor] 20 mg PO QHS 01/25/19 12/21/19 Unknown History Insulin Lispro [HumaLOG VIAL] See Protocol SUB-Q BID 01/25/19 12/21/19 Unknown History Magnesium Oxide [Mag-Ox] 400 mg PO QDAY 01/25/19 12/21/19 Unknown History Quetiapine Fumarate [SEROquel] 50 mg PO TID 01/25/19 12/21/19 Unknown History Thiamine [Vitamin B-1] 100 mg PO DAILY 01/25/19 12/21/19 Unknown History Timolol 0.5% [Timoptic] 1 drop OU BID 01/25/19 12/21/19 Unknown History Insulin Glargine [Lantus VIAL] 45 units SUB-Q QHS units 02/10/19 12/21/19 Unknown Rx Lipase/Protease/Amylase [Pancreaze 1 each FEEDTUBE PRN PRN capsule 02/10/19 12/21/19 Unknown Rx 10,500 Unit] Simple Syrup 15 ml FEEDTUBE PRN PRN oral.liqd 02/10/19 12/21/19 Unknown Rx Ascorbic Acid [Vitamin C] 500 mg PO Q12H 11/06/19 12/21/19 Unknown History Bismuth Subsalicylate [Pepto 524 mg PO Q6HR PRN 11/06/19 12/21/19 Unknown History Bismol] Ferrous Sulfate [Ferrous Sulfate 450 mg PO BID 11/06/19 12/21/19 Unknown History Oral Liq 300 Mg/5 Ml] Latanoprost 0.005% 1 drop OP QHS 11/06/19 12/21/19 Unknown History Sodium Bicarbonate 650 mg FEEDTUBE PRN PRN 11/06/19 12/21/19 Unknown History lisinopriL [Zestril TAB] 10 mg PO QDAY 11/06/19 12/21/19 Unknown History Pantoprazole [Protonix TAB] 40 mg PO QDAY #30 tablet 11/08/19 12/21/19 Unknown Rx Lansoprazole Solutab [Prevacid 30 mg FEEDTUBE BID tab.rapdis 11/12/19 12/21/19 Unknown Rx Solutab] Active Meds: Active Medications Acetaminophen (Tylenol) 650 mg PO Q4H PRN PRN Reason: Fever >101 Lipase/Protease/Amylase (Pancreaze Dr 10,500 Unit) 1 each FEEDTUBE PRN PRN PRN Reason: For Clogged Feeding Tube Ascorbic Acid (Vitamin C) 500 mg PO Q12HR [facility] Last Admin: 12/22/19 10:12 Dose: 500 mg Documented by: Atorvastatin Calcium (Lipitor) 20 mg PO QHS [facility] Last Admin: 12/22/19 05:03 Dose: Not Given Documented by: Bismuth Subsalicylate (Pepto Bismol) 524 mg PO Q6H PRN PRN Reason: Diarrhea Citalopram Hydrobromide (Celexa) 30 mg PO DAILY [facility] Last Admin: 12/22/19 10:12 Dose: 30 mg Documented by: Ferrous Sulfate (Ferrous Sulfate) 308 mg FEEDTUBE BID [facility] Last Admin: 12/22/19 10:12 Dose: 308 mg Documented by: Hydrophilic Ointment (Vaseline Lip Therapy) 1 applic TP Q2HR PRN PRN Reason: Dry Lips Dextrose (D5w) 1,000 mls @ 75 mls/hr IV DIRECT [facility] Last Admin: 12/21/19 18:35 Dose: 75 mls/hr Documented by: Vancomycin HCl (Vancomycin/Ns 1 Gm/250 Ml) 1 gm in 250 mls @ 125 mls/hr IV Q8H [facility] Last Admin: 12/22/19 17:58 Dose: 125 mls/hr Documented by: Latanoprost (Latanoprost 0.005%) 1 drops OD QHS [facility] Last Admin: 12/21/19 23:37 Dose: 1 drops Documented by: Lisinopril (Zestril) 10 mg PO QDAY [facility] Last Admin: 12/22/19 10:13 Dose: 10 mg Documented by: Magnesium Oxide (Mag-Ox) 400 mg PO QDAY [facility] Last Admin: 12/22/19 10:13 Dose: 400 mg Documented by: Multi-Ingred Cream/Lotion/Oil/Oint (Artificial Tears Ophth Oint) 1 applic OU Q4HR PRN PRN Reason: Dry Eye(s) Pantoprazole Sodium (Protonix) 40 mg IV BID [facility] Last Admin: 12/22/19 10:12 Dose: 40 mg Documented by: Quetiapine Fumarate (Seroquel) 50 mg PO TID [facility] Last Admin: 12/22/19 17:58 Dose: 50 mg Documented by: Simple Syrup (Simple Syrup) 15 ml FEEDTUBE PRN PRN PRN Reason: Hypoglycemia Simple Syrup (Simple Syrup) 30 ml FEEDTUBE PRN PRN PRN Reason: Hypoglycemia Sodium Bicarbonate (Sodium Bicarbonate) 325 mg FEEDTUBE PRN PRN PRN Reason: For Clogged Feeding Tube Sodium Chloride (Sodium Chloride Flush Syringe 10 Ml) 10 ml IV BID [facility] Last Admin: 12/22/19 10:13 Dose: 10 ml Documented by: Sodium Chloride (Sodium Chloride Flush Syringe 10 Ml) 10 ml IV PRN PRN PRN Reason: LINE FLUSH Thiamine HCl (Vitamin B-1) 100 mg PO DAILY [facility] Last Admin: 12/22/19 10:13 Dose: 100 mg Documented by: Timolol Maleate (Timoptic) 1 drops OU BID [facility] Last Admin: 12/22/19 10:14 Dose: 1 drops Documented by: Physical Examination - Physical Exam Narrative exam: Physical Exam: Constitutional: Nonverbal, awake Head, Ears, Nose: Normocephalic, atraumatic. External ears, nose normal Eyes: Conjunctivae/corneas clear. No icterus. No ptosis. Neck: Supple, no meningeal signs Oral: dentition fair, no thrush Cardiovascular: S1, S2 normal. Respiratory: Good air entry, clear to auscultation bilaterally GI: Soft, non-tender; bowel sounds normal. No peritoneal signs. Musculoskeletal: No pedal edema, no cyanosis. Skin: No rash or abscess Hem/Lymphatic: No palpable cervical or supraclavicular nodes. No lymphangitis Psych: Nonverbal Neurological: Nonverbal - Constitutional Vitals: Vital Signs Temp Pulse Resp BP Pulse Ox 98.7 F 89 18 118/72 97 12/22/19 12:55 12/22/19 10:13 12/21/19 21:08 12/22/19 10:13 12/21/19 21:08 Temperature -Last 24 Hours Temperature 98.7 F Temperature 98.7 F Results - Labs CBC & Chem 7: 12/22/19 10:34 12/22/19 10:34 Labs: Abnormal lab results 12/19/19 12/21/19 12/22/19 Range/Units 09:10 23:02 10:34 RBC 3.24 L (3.65-5.03) M/mm3 Hgb 7.7 L 8.4 L (11.8-15.2) gm/dl Hct 24.8 L 27.0 L (35.5-45.6) % MCV 83 L (84-94) fl MCH 26 L (28-32) pg MCHC 31 L (32-34) % RDW 17.7 H (13.2-15.2) % Sodium (137-145) mmol/L Chloride (98-107) mmol/L Carbon Dioxide (22-30) mmol/L Creatinine (0.8-1.5) mg/dL Glucose (75-100) mg/dL POC Glucose (70-105) Crossmatch See Detail 12/22/19 12/22/19 Range/Units 10:34 11:58 RBC (3.65-5.03) M/mm3 Hgb (11.8-15.2) gm/dl Hct (35.5-45.6) % MCV (84-94) fl MCH (28-32) pg MCHC (32-34) % RDW (13.2-15.2) % Sodium 147 H (137-145) mmol/L Chloride 112.3 H (98-107) mmol/L Carbon Dioxide 20 L (22-30) mmol/L Creatinine 0.5 L (0.8-1.5) mg/dL Glucose 102 H (75-100) mg/dL POC Glucose 126 H (70-105) Crossmatch Assessment and Plan Cultures: Blood culture 12/19/2019 group B strep 12/31 Sputum culture 12/19/2019 group B strep, Proteus mirabilis A/P:54-year-old man who is a resident of a prison facility with a past medical history of COPD, diabetes, stroke, encephalopathy, debility admitted with UGIB, found to have GBS bacteremia #GBS bacteremia: Unclear source, possible UGIB but typically cutaneous or urinary source for GBS. Continue vancomycin given documented penicillin allergy and patient is non-verbal so unable to discern severity of allergy. Ordered repeat cultures to document clearance. Once cultures negative for [address] midline for OPAT. #Tracheitis: patient without significant PNA on CXR, as such likely colonization. GBS will be incidentally treated with vancomycin, will give 5 days of levofloxacin as well for Proteus. #Diabetes: tight glycemic control for best outcomes. #Penicillin allergy: non-verbal, unable to properly assess. Recs: -Continue vancomycin dosed per pharmacy, goal trough 10-20 -Start levofloxacin 700 mg every 24 hours to complete 5 days of therapy. -Ordered repeat blood cultures -Ordered echocardiogram -Okay to place midline wound cultures negative for 48 hours. Thank for the consult, will continue to follow MD [facility] M: [phone] O: [phone] F: [phone]
--- NOTE | 2019-12-22 22:00 | Progress Note ---
Assessment and Plan Acute upper GI bleed Severe Sepsis witrh Shock Acute hypoxemic respiratory failure Diabetes mellitus type 2 Hypertension Metabolic acidosis/lactic acidosis - prn analgesia per pain score - supplemental oxygen as needed to keep O2 sat's > 90% - continue contact and droplet isolation and follow clinically due to COVID-19 exposure - prn bronchodilators with pulmonary hygiene per RT - continue antiinfective's per ID recommendations for bacteremia / sepsis - PT/OT as tolerated - mobility protocols for pressure ulcer prophylaxis - continue accuchecks with glycemic control per SSI for target BG < 180 mg/dl - GI & VTE prophylaxis with PPI & SCD's - Flu & pneumovax addressed per protocol - continue other care per attending / other consultants ... re-evaluate in am & prn Subjective Date of service: 12/22/19 Principal diagnosis: Ac upper GI bleed; Shock; Ac hypoxemic resp failure; DM II; H/O HTN Interval history: Patient is seen today for: Acute upper GI bleed; Severe Sepsis witrh Shock; Acute hypoxemic respiratory failure; DM II; HTN; Metabolic acidosis/lactic acidosis Seen and examined at bedside; 24hour events reviewed; nursing and respiratory care staff consulted; no adverse overnight events reported to me; resting peacefully in bed; AMS is persistent; no gross bleeding; nods head yes to pain question; No N/V/F/C Objective Vital Signs - 12hr 12/22/19 12/22/19 10:13 12:55 Temperature 98.7 F Pulse Rate 89 Blood Pressure 118/72 Constitutional: no acute distress Eyes: non-icteric ENT: oropharynx moist Neck: supple, no lymphadenopathy, no JVD Effort: mildly labored Ascultation: Bilateral: rhonchi Percussion: Bilateral: not dull Cardiovascular: regular rate and rhythm Gastrointestinal: normoactive bowel sounds, soft, non-tender, non-distended Integumentary: rash Extremities: no cyanosis, no edema, pulses normal Neurologic: pupils equal and round, other (mumbles sometimes appropriate replies to questions) Psychiatric: other (affect flat) CBC and BMP: 12/23/19 06:38 12/23/19 06:38 ABG, PT/INR, D-dimer: ABG ABG pH 7.432 pH Units (7.350-7.450) 12/20/19 12:15 ABG pCO2 36.0 mm Hg 12/20/19 12:15 ABG pO2 150.8 mm Hg (80.0-90.0) H 12/20/19 12:15 ABG O2 Saturation 98.9 % (95.0-99.0) 12/20/19 12:15 PT/INR, D-dimer PT 15.3 Sec. (12.2-14.9) H 12/19/19 09:14 INR 1.19 (0.87-1.13) H 12/19/19 09:14 Abnormal lab findings: Abnormal Labs 12/19/19 12/19/19 12/19/19 09:10 09:14 09:14 WBC 12.1 H RBC Hgb 10.0 L Hct 32.3 L MCV 81 L MCH 25 L MCHC 31 L RDW 17.7 H Lymph % (Auto) [place] % (Auto) [place] # 0.9 H Seg Neutrophils % 78.2 H Seg Neutrophils # 9.5 H PT 15.3 H INR 1.19 H ABG pH ABG pO2 ABG HCO3 ABG O2 Saturation ABG Base Excess ABG Hemoglobin Sodium Potassium Chloride Carbon Dioxide BUN Creatinine Glucose POC Glucose Lactic Acid Albumin Crossmatch See Detail 12/19/19 12/19/19 12/19/19 09:14 09:14 10:05 WBC RBC Hgb Hct MCV MCH MCHC RDW Lymph % (Auto) [place] % (Auto) [place] # Seg Neutrophils % Seg Neutrophils # PT INR ABG pH ABG pO2 ABG HCO3 ABG O2 Saturation ABG Base Excess ABG Hemoglobin Sodium Potassium Chloride Carbon Dioxide 20 L BUN 55 H Creatinine Glucose 222 H POC Glucose 212 H Lactic Acid 3.10 H* Albumin 3.4 L Crossmatch 12/19/19 12/19/19 12/19/19 10:30 12:30 15:55 WBC RBC Hgb Hct MCV MCH MCHC RDW Lymph % (Auto) [place] % (Auto) [place] # Seg Neutrophils % Seg Neutrophils # PT INR ABG pH 7.277 L ABG pO2 195.1 H ABG HCO3 19.2 L ABG O2 Saturation 99.2 H ABG Base Excess -7.1 L ABG Hemoglobin 9.4 L Sodium Potassium Chloride Carbon Dioxide BUN Creatinine Glucose POC Glucose Lactic Acid 2.80 H* 5.10 H* Albumin Crossmatch 12/20/19 12/20/19 12/20/19 04:20 04:59 04:59 WBC 11.3 H RBC 3.21 L Hgb 8.0 L Hct 26.0 L D MCV 81 L MCH 25 L MCHC 31 L RDW 17.7 H Lymph % (Auto) 12.[address] [place] % (Auto) 11.[address] [place] # 1.2 H Seg Neutrophils % 76.5 H Seg Neutrophils # 8.6 H PT INR ABG pH ABG pO2 139.7 H ABG HCO3 ABG O2 Saturation ABG Base Excess ABG Hemoglobin 9.2 L Sodium 147 H Potassium Chloride 113.7 H Carbon Dioxide BUN 29 H Creatinine 0.6 L D Glucose 172 H POC Glucose Lactic Acid Albumin Crossmatch 12/20/19 12/21/19 12/21/19 12:15 04:38 04:38 WBC RBC 2.55 L Hgb 6.5 L Hct 20.9 L MCV 82 L MCH 26 L MCHC 31 L RDW 18.1 H Lymph % (Auto) [place] % (Auto) 10.[address] [place] # 0.9 H Seg Neutrophils % 70.8 H Seg Neutrophils # PT INR ABG pH ABG pO2 150.8 H ABG HCO3 ABG O2 Saturation ABG Base Excess ABG Hemoglobin 5.5 L Sodium 149 H Potassium 3.5 L Chloride 114.9 H Carbon Dioxide BUN 21 H Creatinine 0.5 L Glucose 114 H POC Glucose Lactic Acid Albumin Crossmatch 12/21/19 12/22/19 12/22/19 23:02 10:34 10:34 WBC RBC 3.24 L Hgb 7.7 L 8.4 L Hct 24.8 L 27.0 L MCV 83 L MCH 26 L MCHC 31 L RDW 17.7 H Lymph % (Auto) [place] % (Auto) [place] # Seg Neutrophils % Seg Neutrophils # PT INR ABG pH ABG pO2 ABG HCO3 ABG O2 Saturation ABG Base Excess ABG Hemoglobin Sodium 147 H Potassium Chloride 112.3 H Carbon Dioxide 20 L BUN Creatinine 0.5 L Glucose 102 H POC Glucose Lactic Acid Albumin Crossmatch 12/22/19 11:58 WBC RBC Hgb Hct MCV MCH MCHC RDW Lymph % (Auto) [place] % (Auto) [place] # Seg Neutrophils % Seg Neutrophils # PT INR ABG pH ABG pO2 ABG HCO3 ABG O2 Saturation ABG Base Excess ABG Hemoglobin Sodium Potassium Chloride Carbon Dioxide BUN Creatinine Glucose POC Glucose 126 H Lactic Acid Albumin Crossmatch Chest x-ray: image reviewed Allied health notes reviewed: nursing
--- NOTE | 2019-12-22 22:11 | Consultation ---
PULMONARY CRITICAL CARE CONSULT NOTE CONSULTING PHYSICIAN: Dr. Ochoa. REASON FOR CONSULTATION: Acute respiratory failure, on mechanical ventilator support. CHIEF COMPLAINT AND HISTORY OF PRESENT ILLNESS: The patient is a 54-year-old -Tongan male, halfway patient came in from the halfway for dark red blood per rectum. He is nonverbal at baseline and unable to give a history. In the Emergency Department, he had an episode of projectile vomiting, there was ground. He was hypotensive. He seems like he decompensated in the ER, unable to protect his airway and was intubated. Post-intubation, we are asked to assist with management. When I stopped by to see him, he was resting peacefully in bed. He was on the mechanical ventilator riding the set rate on the mechanical ventilator without significant patient ventilator dyssynchrony. The patient is not a current tobacco abuser. Remote history is unknown. The above is as much of the history of presentation as I have. PAST MEDICAL HISTORY: History of cerebrovascular accident, hypertension, diabetes, gastroesophageal reflux disease, COPD, history of BPH, anemia, glaucoma. PAST SURGICAL HISTORY: He has had a percutaneous endoscopic gastrostomy tube placement in the past. MEDICATIONS: He was on at the time I stopped by to see him were reviewed, pertinent medications include the following: Tylenol 650 mg p.o. q.4 hours p.r.n. fevers greater than 101, vitamin C 500 mg p.o. q. 12 hours, all p.o. meds via the feeding tube, Lipitor 20 mg p.o. at bedtime, Celexa 30 mg p.o. daily, Protonix drip was going at 8 mg per hour, propofol was going at 10 mcg per kilogram per minute, Prevacid, solutabs 30 mg p.o. b.i.d., latanoprost 0.005% eye drops to affected eye at bedtime, Lisinopril 10 mg p.o. daily, Seroquel 50 mg p.o. t.i.d. ALLERGIES: PENICILLINS. Nature of this nature of this allergy is unknown. DIET: Thin gentleman, acute weight loss or gain history is unknown. FAMILY AND SOCIAL HISTORY: care home resident. No current alcohol, tobacco, or illicit drug use or abuse. Remote history is unknown. REVIEW OF SYSTEMS: Unobtainable secondary to patient's medical and mental condition. Since he has been here, no witnessed seizures, no hemoptysis. Review of systems otherwise as in the body of history above or unobtainable. PHYSICAL EXAMINATION: VITAL SIGNS: On examination at presentation in the Emergency Room revealed, afebrile, temperature 98.8 degrees Fahrenheit rectally, pulse 110, respiratory rate 19, blood pressure 172/49, O2 sats were 97%, inspired oxygen concentration was not recorded. At the time that I stopped by to see him, his O2 sats were 98% on the mechanical ventilator, assist control, PRVC mode, tidal volume 450, rate of 16, PEEP of 6 and a 50% FiO2. GENERAL: He is an elderly looking thin -Tongan male. Normocephalic, on the mechanical ventilator without significant patient ventilator dyssynchrony. HEAD, EARS, NOSE AND THROAT: Anicteric. No conjunctival erythema. Oropharynx was dry. ET tube was taped at the lips around 23-24 cm. NECK: Grossly, there were no palpable lymph nodes in the supraclavicular or submandibular lymph node chains. No gross jugular venous distention. LUNGS: Auscultation of both lung wilson revealed bilateral rhonchi, no active wheezing. HEART: Heart sounds 1 and 2 are heard at the time of my evaluation, regular rate and rhythm without overt rubs or murmurs. ABDOMEN: Soft, protuberant. Bowel sounds are positive, nontender, no palpable hepatosplenomegaly. EXTREMITIES: Without overt digital clubbing, no cyanosis, no pedal edema. Pedal pulses are 2+ bilaterally. NEUROLOGIC: He is essentially obtunded, not following commands. No overt spasticity or fasciculations. SKIN: Poor turgor without overt cellulitis or rash. PSYCHIATRIC: Mood and affect flat. I should mention he also has a left subclavian central line in place. LABORATORY DATA: From my review are as follows: Admission white cell count 12,100, hemoglobin 10.0, hematocrit 32.3, platelet count 334. No manual differential. INR 1.19. Arterial blood gas at initial presentation showed a pH of 7.28, pCO2 of 42, pO2 of 195, inspired oxygen concentration at that time was 50% on the mechanical ventilator. Serum sodium was 142, potassium 3.9, chloride 105, bicarbonate 20, BUN 55, creatinine 1.4, glucose 222. Lactic acid level was 2.8. Urinalysis was negative for nitrites and leukocyte esterase and really bland. Two sets of blood cultures have been sent to the lab, no growth to date. Chest x-ray was done, it shows an endotracheal tube in place, likely [employer] shunt is seen coursing through into the abdominal cavity appears to be on the right side and the left subclavian line tip is in the brachiocephalic SVC junction. No gross pneumothorax, no focal infiltrates. No gross bony fracture. ASSESSMENT: 1. Acute hypoxemic respiratory failure, on mechanical ventilation support. 2. Acute gastrointestinal bleed. 3. Severe sepsis with shock. 4. Possible hemorrhagic shock component. 5. Anemia that is microcytic. 6. Mild metabolic acidosis. 7. Lactic acidosis. 8. History of cerebrovascular accident. 9. Adult failure to thrive. 10. Diabetes. 11. Chronic obstructive pulmonary disease history. 12. History of hypertension. PLAN: We will go ahead and keep him on full mechanical ventilatory support in the short time while GI evaluation and management will be continued. He will be continued on the Protonix drip for now. I will increase the set minute ventilation on the mechanical ventilator to compensate for the metabolic acidosis. Oxygen will be weaned to keep sats greater than or equal to about 90%. Ventilator-associated pneumonia bundle including aspiration precautions has been instituted. SCDs will be the DVT prophylaxis of choice. Once he is cleared for feeding, enteral nutrition will be the feeding modality of choice. We will get serial H and H and follow those. Vasopressors will be started for nonresponsive to volume hypotension. Of note, the patient was found to have the same room with another patient had been ruled out for COVID-19. I have instructed the charge nurse that he will also need to be treated as a patient in contact with one with COVID-19. For now, he should remain in isolation and essentially self-quarantine him and keep him in isolation room for now. Decisions on COVID testing would depend on his clinical features during the hospital. Flu and pneumonia vaccination will be addressed per protocol. Thank you very much for the consult. We will follow along. We will make further recommendations as picture progresses/becomes clearer. He is critically ill on life-sustaining interventions including mechanical ventilatory support at risk of decompensation including the risk of . At this time, I spent about 35-40 minutes of critical care time without overlap and excluding any procedural time that may be necessary. JOB# [id number] BELKIS/BUBBA
[2019-12-22] MEDS: LATANOPROST 0.005% OPHTH SOLN 2.5 ML OD SCH (22:30)
[2019-12-23] MEDS: VANCOMYCIN/NS 1 GM/250 ML 1 GM/250 ML BAG IV SCH ×3 (06:05→21:59)
[2019-12-23 07:12] LABS: Hematocrit 23.8 % (35.5-45.6); Hemoglobin 7.6 gm/dl (11.8-15.2); Mean Corpuscular HGB Conc 32 % (32-34); Mean Corpuscular Volume 81 fl (84-94); Platelet Count 234 K/mm3 (140-440); Red Blood Count 2.94 M/mm3 (3.65-5.03)
[2019-12-23 07:31] LABS: BUN/Creatinine Ratio 28; Blood Urea Nitrogen 11 mg/dL (9-20); Calcium 8.1 mg/dL (8.4-10.2); Hemolysis Index 8
--- NOTE | 2019-12-23 09:05 | Progress Note ---
Assessment and Plan Assessment and plan: Acute upper GI bleed. Patient underwent endoscopy which revealed esophagitis in the lower third of the esophagus. There was a cratered, clean based ulcer in the incisura of the stomach. No high risk bleeding stigmata was seen. Continue to monitor H&H and transfuse for hemoglobin less than 7. Continue IV PPI. Acute hypoxic respiratory failure. was intubated, now extubated, Pulmonary following. Diabetes mellitus type 2. Continue Accu-Cheks and sliding scale insulin. Hypertension. Patient actually hypotensive given the bleed. Metabolic acidosis/lactic acidosis. Etiology likely secondary to hypotension/hypoperfusion from GI bleed. Patient with no obvious signs of infection. SIRS. Etiology secondary to above. Check blood cultures, UA and urine culture. 12/21/19 patient with acute resp failure. was intubated, now extubated. Transfer to medical floor 12/22/19 Got a text, followed by Call from Shanika, head of Risk management. She states Patient has been on contact and droplet precaution by error. Nurse Lamar caruso had mentioned to me 12/20 that patient on isolation because he was in a room with patient with Covid-19 positive. I discussed with Shanika, funeral home general manager. She told me today that this is an error, patient was not in same room with Covid positive patient, but a different room. Will dc isolation., Transfer to another floor. History Interval history: Patient presented with GI bleed Hospitalist Physical - Physical exam Narrative exam: GEN: Not in acute distress, lying in bed HEENT: Normocephalic, atraumatic, Neck: supple, No JVD Lungs: clear, no crackles, heart;S1 and S2 reg, tachy, no murmurs, rubs or gallop Abd:soft, non tender, non distended, normal bowel sounds, PEG tube Ext: No edema, no clubbing, no cyanosis, Neuro: Awake,alert, aphasia,prev stroke - Constitutional Vitals: Temp Pulse Resp BP Pulse Ox 98.4 F 81 18 142/84 100 12/23/19 08:34 12/23/19 08:34 12/23/19 08:34 12/23/19 08:34 12/23/19 08:34 General appearance: Present: other (Orally intubatedon mechanical ventilation) Results - Labs CBC & Chem 7: 12/23/19 06:38 12/23/19 06:38 Labs: Laboratory Last Values WBC 6.8 K/mm3 (4.5-11.0) 12/23/19 06:38 RBC 2.94 M/mm3 (3.65-5.03) L 12/23/19 06:38 Hgb 7.6 gm/dl (11.8-15.2) L 12/23/19 06:38 Hct 23.8 % (35.5-45.6) L 12/23/19 06:38 MCV 81 fl (84-94) L 12/23/19 06:38 MCH 26 pg (28-32) L 12/23/19 06:38 MCHC 32 % (32-34) 12/23/19 06:38 RDW 17.0 % (13.2-15.2) H 12/23/19 06:38 Plt Count 234 K/mm3 (140-440) 12/23/19 06:38 Lymph % (Auto) 16.7 % (13.4-35.0) 12/21/19 04:38 [place] % (Auto) 10.8 % (0.0-7.3) H 12/21/19 04:38 Eos % (Auto) 1.2 % (0.0-4.3) 12/21/19 04:38 Baso % (Auto) 0.5 % (0.0-1.8) 12/21/19 04:38 Lymph # 1.4 K/mm3 (1.2-5.4) 12/21/19 04:38 [place] # 0.9 K/mm3 (0.0-0.8) H 12/21/19 04:38 Eos # 0.1 K/mm3 (0.0-0.4) 12/21/19 04:38 Baso # 0.0 K/mm3 (0.0-0.1) 12/21/19 04:38 Seg Neutrophils % 70.8 % (40.0-70.0) H 12/21/19 04:38 Seg Neutrophils # 6.0 K/mm3 (1.8-7.7) 12/21/19 04:38 PT 15.3 Sec. (12.2-14.9) H 12/19/19 09:14 INR 1.19 (0.87-1.13) H 12/19/19 09:14 APTT 26.4 Sec. (24.2-36.6) 12/19/19 09:14 ABG pH 7.432 pH Units (7.350-7.450) 12/20/19 12:15 ABG pCO2 36.0 mm Hg 12/20/19 12:15 ABG pO2 150.8 mm Hg (80.0-90.0) H 12/20/19 12:15 ABG HCO3 23.5 mmol/L (20.0-26.0) 12/20/19 12:15 ABG O2 Saturation 98.9 % (95.0-99.0) 12/20/19 12:15 ABG O2 Content 7.8 (0.0-44) 12/20/19 12:15 ABG Base Excess -0.8 mmol/L (-2.0-3.0) 12/20/19 12:15 ABG Hemoglobin 5.5 gm/dl (14.0-18.0) L 12/20/19 12:15 ABG Carboxyhemoglobin 1.9 % (0.0-5.0) 12/20/19 12:15 ABG Methemoglobin 0.5 % (0.0-1.5) 12/20/19 12:15 Oxyhemoglobin 96.5 % (95.0-99.0) 12/20/19 12:15 FiO2 35 % 12/20/19 12:15 Sodium 143 mmol/L (137-145) 12/23/19 06:38 Potassium 3.3 mmol/L (3.6-5.0) L 12/23/19 06:38 Chloride 107.5 mmol/L (98-107) H 12/23/19 06:38 Carbon Dioxide 22 mmol/L (22-30) 12/23/19 06:38 Anion Gap 17 mmol/L 12/23/19 06:38 BUN 11 mg/dL (9-20) 12/23/19 06:38 Creatinine 0.4 mg/dL (0.8-1.5) L 12/23/19 06:38 Estimated GFR > 60 ml/min 12/23/19 06:38 BUN/Creatinine Ratio 28 % 12/23/19 06:38 Glucose 132 mg/dL (75-100) H 12/23/19 06:38 POC Glucose 124 (70-105) H 12/23/19 05:46 Lactic Acid 5.10 mmol/L (0.7-2.0) H* 12/19/19 15:55 Calcium 8.1 mg/dL (8.4-10.2) L 12/23/19 06:38 Magnesium 2.00 mg/dL (1.7-2.3) 12/19/19 09:14 Total Bilirubin 0.20 mg/dL (0.1-1.2) 12/19/19 09:14 AST 13 units/L (5-40) 12/19/19 09:14 ALT 11 units/L (7-56) 12/19/19 09:14 Alkaline Phosphatase 85 units/L (35-129) 12/19/19 09:14 Ammonia 35.0 umol/L (25-60) 12/19/19 09:14 Total Protein 6.6 g/dL (6.3-8.2) 12/19/19 09:14 Albumin 3.4 g/dL (3.9-5) L 12/19/19 09:14 Albumin/Globulin Ratio 1.1 % 12/19/19 09:14 Lipase 49 units/L (13-60) 12/19/19 09:14 Urine Color Yellow (Yellow) 12/19/19 10:02 Urine Turbidity Slightly-cloudy (Clear) 12/19/19 10:02 Urine pH 5.0 (5.0-7.0) 12/19/19 10:02 Ur Specific [place] 1.024 (1.003-1.030) 12/19/19 10:02 Urine Protein 30 mg/dl mg/dL (Negative) 12/19/19 10:02 Urine Glucose (UA) 50 mg/dL (Negative) 12/19/19 10:02 Urine Ketones Neg mg/dL (Negative) 12/19/19 10:02 Urine Blood Neg (Negative) 12/19/19 10:02 Urine Nitrite Neg (Negative) 12/19/19 10:02 Urine Bilirubin Neg (Negative) 12/19/19 10:02 Urine Urobilinogen < 2.0 mg/dL (<2.0) 12/19/19 10:02 Ur Leukocyte Esterase Neg (Negative) 12/19/19 10:02 Urine WBC (Auto) 2.0 /HPF (0.0-6.0) 12/19/19 10:02 Urine RBC (Auto) 1.0 /HPF (0.0-6.0) 12/19/19 10:02 U Epithel Cells (Auto) < 1.0 /HPF (0-13.0) 12/19/19 10:02 Hyaline Casts 11 /LPF 12/19/19 10:02 Urine Mucus 2+ /HPF 12/19/19 10:02 Urine Sperm Few /HPF (AUTOMOTIVE DISMANTLER) 12/19/19 10:02 Random Vancomycin 7.5 ug/mL (0-40.0) 12/21/19 23:02 Blood Type O POSITIVE 12/19/19 09:10 Antibody Screen Negative 12/19/19 09:10 Crossmatch See Detail 12/19/19 09:10 Microbiology: Microbiology 12/23/19 00:41 Peripheral/Venous Blood Culture - Preliminary Culture in Progress 12/22/19 23:56 Peripheral/Venous Blood Culture - Preliminary Culture in Progress 12/19/19 09:14 Peripheral/Venous Blood Culture - Preliminary Beta Hemolytic Strep Group B 12/19/19 12:35 Tracheal Aspirate Sputum Culture - Final Beta Hemolytic Strep Group B Proteus Mirabilis Hurtado/IV: Voiding Method Indwelling Catheter IV Catheter Type [Left Forearm INT / Saline Lock ] IV Catheter Type [Left Triple Lumen Cath Subclavian] IV Catheter Type [Right INT / Saline Lock Antecubital] Active Medications - Current Medications Current Medications: Generic Name Dose Route Start Last Admin Trade Name Freq PRN Reason Stop Dose Admin Acetaminophen 650 mg 12/19/19 12:15 Tylenol PO Q4H PRN Fever >101 Lipase/Protease/Amylase 1 each 12/22/19 10:[address] 10,500 Unit FEEDTUBE PRN PRN For Clogged Feeding Tube Ascorbic Acid 500 mg 12/19/19 13:00 12/22/19 22:28 Vitamin C PO 500 mg Q12HR NIKOLAS Administration Atorvastatin Calcium 20 mg 12/19/19 22:00 12/22/19 22:28 Lipitor PO 20 mg QHS NIKOLAS Administration Bismuth Subsalicylate 524 mg 12/19/19 12:15 Pepto Bismol PO Q6H PRN Diarrhea Citalopram Hydrobromide 30 mg 12/19/19 14:00 12/22/19 10:12 Celexa PO 30 mg DAILY NIKOLAS Administration Ferrous Sulfate 308 mg 12/20/19 22:00 12/22/19 23:57 Ferrous Sulfate FEEDTUBE Not Given BID NIKOLAS Hydrophilic Ointment 1 applic 12/19/19 10:35 Vaseline Lip Therapy TP Q2HR PRN Dry Lips Dextrose 1,000 mls @ 75 mls/hr 12/21/19 17:00 12/21/19 18:35 D5w IV 75 mls/hr DIRECT NIKOLAS Administration Vancomycin HCl 1 gm in 250 mls @ 125 mls/hr 12/21/19 22:00 12/23/19 06:05 Vancomycin/Ns 1 Gm/250 Ml IV 125 mls/hr Q8H NIKOLAS Administration Latanoprost 1 drops 12/19/19 22:00 12/22/19 22:30 Latanoprost 0.005% OD 1 drops QHS NIKOLAS Administration Lisinopril 10 mg 12/19/19 13:00 12/22/19 10:13 Zestril PO 10 mg QDAY NIKOLAS Administration Magnesium Oxide 400 mg 12/20/19 10:00 12/22/19 10:13 Mag-Ox PO 400 mg QDAY NIKOLAS Administration Multi-Ingred Cream/Lotion/Oil/Oint 1 applic 12/19/19 10:35 Artificial Tears Ophth Oint OU Q4HR PRN Dry Eye(s) Pantoprazole Sodium 40 mg 12/20/19 11:00 12/22/19 22:28 Protonix IV 40 mg BID NIKOLAS Administration Quetiapine Fumarate 50 mg 12/19/19 14:00 12/22/19 22:33 Seroquel PO 50 mg TID NIKOLAS Administration Simple Syrup 15 ml 12/22/19 09:51 Simple Syrup FEEDTUBE PRN PRN Hypoglycemia Simple Syrup 30 ml 12/22/19 10:05 Simple Syrup FEEDTUBE PRN PRN Hypoglycemia Sodium Bicarbonate 325 mg 12/22/19 10:05 Sodium Bicarbonate FEEDTUBE PRN PRN For Clogged Feeding Tube Sodium Chloride 10 ml 12/19/19 22:00 12/22/19 22:26 Sodium Chloride Flush Syringe 10 Ml IV 10 ml BID NIKOLAS Administration Sodium Chloride 10 ml 12/19/19 12:13 Sodium Chloride Flush Syringe 10 Ml IV PRN PRN LINE FLUSH Thiamine HCl 100 mg 12/20/19 10:00 12/22/19 10:13 Vitamin B-1 PO 100 mg DAILY NIKOLAS Administration Timolol Maleate 1 drops 12/19/19 22:00 12/22/19 22:29 Timoptic OU 1 drops BID NIKOLAS Administration Nutrition/Malnutrition Assess - Dietary Evaluation Nutrition/Malnutrition Findings: Nutrition Notes Start: 12/20/19 08:53 Freq: Status: Active Protocol: Document 12/22/19 09:59 LM (Rec: 12/22/19 10:05 LM [email or web address]) Nutrition Notes Need for Assessment generated from: MD Order Initial or Follow up Reassessment Current Diagnosis Acute Kidney Injury,COPD, Diabetes,Hypertension, Respiratory Failure,Stroke Other Pertinent Diagnosis GI bleed, encephalopathy, debility Current Diet NPO Labs/Tests Reviewed Pertinent Medications Reviewed Height 5 ft 6 in Weight 74.59 kg [place] Body Weight (kg) 64.54 BMI 26.5 Weight Status Overweight Subjective/Other Information MD consult for TF. Pt no longer on vent. Burn Absent Trauma Absent GI Symptoms Other Current % PO Negligible Minimum of two criteria No physical signs of malnutrition #1 Nutrition Diagnosis Inadequate oral intake Diagnosis Progress(for reassessment Continues documentation) Is patient on ventilator? No Is Patient Ambulatory and/or Out of Bed No REE-([facility]-confined to bed) 7622.225 Calculation Used for Recommendations [facility] Additional Notes Protein: 60-90g (0.8-1.2g/kg) Fluid: 1 ml/kcal Nutrition Intervention Change Diet Order: TF Nutrition Support: Glucerna 1.2 at 65 ml/hr Flush 200 ml q4h for hypernatremia Flush 100 ml q4h once resolved Kcal 1,872 Protein (gm) 94 Fluid (mL) 1,256 Goal #1 TF start tolerance Anticipated Discharge Needs: TF Follow-Up By: 12/24/19 Additional Comments F/U for TF start/tolerance
[2019-12-23] MEDS: LANSOPRAZOLE 30 MG SOLUTAB FEEDTUBE SCH ×2 (10:04→22:01)
[2019-12-23] MEDS: ASCORBIC ACID 500 MG TAB PO SCH ×2 (10:04→22:01)
[2019-12-23] MEDS: THIAMINE 100 MG TAB PO SCH (10:04)
[2019-12-23] MEDS: MAGNESIUM OXIDE 400 MG TAB PO SCH (10:04)
[2019-12-23] MEDS: QUEtiapine 25 MG TAB PO SCH ×3 (10:04→22:01)
[2019-12-23] MEDS: LISINOPRIL 10 MG TAB PO SCH (10:05)
[2019-12-23] MEDS: TIMOLOL 0.5% OPHTH SOLN 5 ML OU SCH ×2 (10:39→22:00)
--- NOTE | 2019-12-23 13:16 | Progress Note ---
Assessment and Plan Assessment and plan: Acute upper GI bleed. Patient underwent endoscopy which revealed esophagitis in the lower third of the esophagus. There was a cratered, clean based ulcer in the incisura of the stomach. No high risk bleeding stigmata was seen. Continue to monitor H&H and transfuse for hemoglobin less than 7. Continue IV PPI. Acute hypoxic respiratory failure. was intubated, now extubated, Pulmonary following. Diabetes mellitus type 2. Continue Accu-Cheks and sliding scale insulin. Hypertension. Patient actually hypotensive given the bleed. Metabolic acidosis/lactic acidosis. Etiology likely secondary to hypotension/hypoperfusion from GI bleed. Patient with no obvious signs of infection. SIRS. Etiology secondary to above. Check blood cultures, UA and urine culture. 12/21/19 patient with acute resp failure. was intubated, now extubated. Transfer to medical floor 12/22/19 Got a text, followed by Call from Shanika, head of Risk management. She states Patient has been on contact and droplet precaution by error. Nurse Lamar caruso had mentioned to me 12/20 that patient on isolation because he was in a room with patient with Covid-19 positive. I discussed with Shanika, [employer] project manager. She told me today that this is an error, patient was not in same room with Covid positive patient, but a different room. Will dc isolation., Transfer to another floor. 12/23/19. Got a call from Dr. Laws( aka Dr. Crawley) yesterday that patient should be on contact and droplet isolation because he was in room in ED with patient that tested to be covid -19. He states it happened in one of rooms in which patient only by curtains. I discussed with Dr. Nixon. Will fill survey and sent to [facility] History Interval history: Patient presented with GI bleed Hospitalist Physical - Physical exam Narrative exam: GEN: Not in acute distress, lying in bed HEENT: Normocephalic, atraumatic, Neck: supple, No JVD Lungs: clear, no crackles, heart;S1 and S2 reg, tachy, no murmurs, rubs or gallop Abd:soft, non tender, non distended, normal bowel sounds, PEG tube Ext: No edema, no clubbing, no cyanosis, Neuro: Awake,alert, aphasia,prev stroke - Constitutional Vitals: Temp Pulse Resp BP Pulse Ox 98.4 F 81 18 142/84 100 12/23/19 08:34 12/23/19 10:05 12/23/19 10:00 12/23/19 10:05 12/23/19 10:00 General appearance: Present: other (Orally intubatedon mechanical ventilation) Results - Labs CBC & Chem 7: 12/23/19 06:38 12/23/19 06:38 Labs: Laboratory Last Values WBC 6.8 K/mm3 (4.5-11.0) 12/23/19 06:38 RBC 2.94 M/mm3 (3.65-5.03) L 12/23/19 06:38 Hgb 7.6 gm/dl (11.8-15.2) L 12/23/19 06:38 Hct 23.8 % (35.5-45.6) L 12/23/19 06:38 MCV 81 fl (84-94) L 12/23/19 06:38 MCH 26 pg (28-32) L 12/23/19 06:38 MCHC 32 % (32-34) 12/23/19 06:38 RDW 17.0 % (13.2-15.2) H 12/23/19 06:38 Plt Count 234 K/mm3 (140-440) 12/23/19 06:38 Lymph % (Auto) 16.7 % (13.4-35.0) 12/21/19 04:38 [place] % (Auto) 10.8 % (0.0-7.3) H 12/21/19 04:38 Eos % (Auto) 1.2 % (0.0-4.3) 12/21/19 04:38 Baso % (Auto) 0.5 % (0.0-1.8) 12/21/19 04:38 Lymph # 1.4 K/mm3 (1.2-5.4) 12/21/19 04:38 [place] # 0.9 K/mm3 (0.0-0.8) H 12/21/19 04:38 Eos # 0.1 K/mm3 (0.0-0.4) 12/21/19 04:38 Baso # 0.0 K/mm3 (0.0-0.1) 12/21/19 04:38 Seg Neutrophils % 70.8 % (40.0-70.0) H 12/21/19 04:38 Seg Neutrophils # 6.0 K/mm3 (1.8-7.7) 12/21/19 04:38 PT 15.3 Sec. (12.2-14.9) H 12/19/19 09:14 INR 1.19 (0.87-1.13) H 12/19/19 09:14 APTT 26.4 Sec. (24.2-36.6) 12/19/19 09:14 ABG pH 7.432 pH Units (7.350-7.450) 12/20/19 12:15 ABG pCO2 36.0 mm Hg 12/20/19 12:15 ABG pO2 150.8 mm Hg (80.0-90.0) H 12/20/19 12:15 ABG HCO3 23.5 mmol/L (20.0-26.0) 12/20/19 12:15 ABG O2 Saturation 98.9 % (95.0-99.0) 12/20/19 12:15 ABG O2 Content 7.8 (0.0-44) 12/20/19 12:15 ABG Base Excess -0.8 mmol/L (-2.0-3.0) 12/20/19 12:15 ABG Hemoglobin 5.5 gm/dl (14.0-18.0) L 12/20/19 12:15 ABG Carboxyhemoglobin 1.9 % (0.0-5.0) 12/20/19 12:15 ABG Methemoglobin 0.5 % (0.0-1.5) 12/20/19 12:15 Oxyhemoglobin 96.5 % (95.0-99.0) 12/20/19 12:15 FiO2 35 % 12/20/19 12:15 Sodium 143 mmol/L (137-145) 12/23/19 06:38 Potassium 3.3 mmol/L (3.6-5.0) L 12/23/19 06:38 Chloride 107.5 mmol/L (98-107) H 12/23/19 06:38 Carbon Dioxide 22 mmol/L (22-30) 12/23/19 06:38 Anion Gap 17 mmol/L 12/23/19 06:38 BUN 11 mg/dL (9-20) 12/23/19 06:38 Creatinine 0.4 mg/dL (0.8-1.5) L 12/23/19 06:38 Estimated GFR > 60 ml/min 12/23/19 06:38 BUN/Creatinine Ratio 28 % 12/23/19 06:38 Glucose 132 mg/dL (75-100) H 12/23/19 06:38 POC Glucose 124 (70-105) H 12/23/19 05:46 Lactic Acid 5.10 mmol/L (0.7-2.0) H* 12/19/19 15:55 Calcium 8.1 mg/dL (8.4-10.2) L 12/23/19 06:38 Magnesium 2.00 mg/dL (1.7-2.3) 12/19/19 09:14 Total Bilirubin 0.20 mg/dL (0.1-1.2) 12/19/19 09:14 AST 13 units/L (5-40) 12/19/19 09:14 ALT 11 units/L (7-56) 12/19/19 09:14 Alkaline Phosphatase 85 units/L (35-129) 12/19/19 09:14 Ammonia 35.0 umol/L (25-60) 12/19/19 09:14 Total Protein 6.6 g/dL (6.3-8.2) 12/19/19 09:14 Albumin 3.4 g/dL (3.9-5) L 12/19/19 09:14 Albumin/Globulin Ratio 1.1 % 12/19/19 09:14 Lipase 49 units/L (13-60) 12/19/19 09:14 Urine Color Yellow (Yellow) 12/19/19 10:02 Urine Turbidity Slightly-cloudy (Clear) 12/19/19 10:02 Urine pH 5.0 (5.0-7.0) 12/19/19 10:02 Ur Specific [place] 1.024 (1.003-1.030) 12/19/19 10:02 Urine Protein 30 mg/dl mg/dL (Negative) 12/19/19 10:02 Urine Glucose (UA) 50 mg/dL (Negative) 12/19/19 10:02 Urine Ketones Neg mg/dL (Negative) 12/19/19 10:02 Urine Blood Neg (Negative) 12/19/19 10:02 Urine Nitrite Neg (Negative) 12/19/19 10:02 Urine Bilirubin Neg (Negative) 12/19/19 10:02 Urine Urobilinogen < 2.0 mg/dL (<2.0) 12/19/19 10:02 Ur Leukocyte Esterase Neg (Negative) 12/19/19 10:02 Urine WBC (Auto) 2.0 /HPF (0.0-6.0) 12/19/19 10:02 Urine RBC (Auto) 1.0 /HPF (0.0-6.0) 12/19/19 10:02 U Epithel Cells (Auto) < 1.0 /HPF (0-13.0) 12/19/19 10:02 Hyaline Casts 11 /LPF 12/19/19 10:02 Urine Mucus 2+ /HPF 12/19/19 10:02 Urine Sperm Few /HPF ([employer]I M[employer]UAL TICKET CHECKER) 12/19/19 10:02 Random Vancomycin 7.5 ug/mL (0-40.0) 12/21/19 23:02 Blood Type O POSITIVE 12/19/19 09:10 Antibody Screen Negative 12/19/19 09:10 Crossmatch See Detail 12/19/19 09:10 Microbiology: Microbiology 12/19/19 09:14 Peripheral/Venous Blood Culture - Preliminary Beta Hemolytic Strep Group B Streptococcus Anginosus Group 12/23/19 00:41 Peripheral/Venous Blood Culture - Preliminary Culture in Progress 12/22/19 23:56 Peripheral/Venous Blood Culture - Preliminary Culture in Progress 12/19/19 12:35 Tracheal Aspirate Sputum Culture - Final Beta Hemolytic Strep Group B Proteus Mirabilis Hurtado/IV: Voiding Method Indwelling Catheter IV Catheter Type [Left Forearm INT / Saline Lock ] IV Catheter Type [Left Triple Lumen Cath Subclavian] IV Catheter Type [Right INT / Saline Lock Antecubital] Active Medications - Current Medications Current Medications: Generic Name Dose Route Start Last Admin Trade Name Freq PRN Reason Stop Dose Admin Acetaminophen 650 mg 12/19/19 12:15 Tylenol PO Q4H PRN Fever >101 Lipase/Protease/Amylase 1 each 12/22/19 10:[address] 10,500 Unit FEEDTUBE PRN PRN For Clogged Feeding Tube Ascorbic Acid 500 mg 12/19/19 13:00 12/23/19 10:04 Vitamin C PO 500 mg Q12HR NIKOLAS Administration Atorvastatin Calcium 20 mg 12/19/19 22:00 12/22/19 22:28 Lipitor PO 20 mg QHS NIKOLAS Administration Bismuth Subsalicylate 524 mg 12/19/19 12:15 Pepto Bismol PO Q6H PRN Diarrhea Citalopram Hydrobromide 30 mg 12/19/19 14:00 12/22/19 10:12 Celexa PO 30 mg DAILY NIKOLAS Administration Ferrous Sulfate 308 mg 12/20/19 22:00 12/22/19 23:57 Ferrous Sulfate FEEDTUBE Not Given BID NIKOLAS Hydrophilic Ointment 1 applic 12/19/19 10:35 Vaseline Lip Therapy TP Q2HR PRN Dry Lips Dextrose 1,000 mls @ 75 mls/hr 12/21/19 17:00 12/21/19 18:35 D5w IV 75 mls/hr DIRECT NIKOLAS Administration Vancomycin HCl 1 gm in 250 mls @ 125 mls/hr 12/21/19 22:00 12/23/19 06:05 Vancomycin/Ns 1 Gm/250 Ml IV 125 mls/hr Q8H NIKOLAS Administration Levofloxacin/Dextrose 750 mg in 150 mls @ 100 mls/hr 12/23/19 10:00 12/23/19 10:04 Levaquin 750mg/150ml IV 12/27/19 11:29 100 mls/hr Q24HR NIKOLAS Administration Lansoprazole 30 mg 12/23/19 10:00 12/23/19 10:04 Prevacid Solutab FEEDTUBE 30 mg BID NIKOLAS Administration Latanoprost 1 drops 12/19/19 22:00 12/22/19 22:30 Latanoprost 0.005% OD 1 drops QHS NIKOLAS Administration Lisinopril 10 mg 12/19/19 13:00 12/23/19 10:05 Zestril PO 10 mg QDAY NIKOLAS Administration Magnesium Oxide 400 mg 12/20/19 10:00 12/23/19 10:04 Mag-Ox PO 400 mg QDAY NIKOLAS Administration Multi-Ingred Cream/Lotion/Oil/Oint 1 applic 12/19/19 10:35 Artificial Tears Ophth Oint OU Q4HR PRN Dry Eye(s) Potassium Chloride 40 meq 12/23/19 13:09 Potassium Chloride FEEDTUBE 12/23/19 13:10 ONCE ONE Quetiapine Fumarate 50 mg 12/19/19 14:00 12/23/19 10:04 Seroquel PO 50 mg TID NIKOLAS Administration Simple Syrup 15 ml 12/22/19 09:51 Simple Syrup FEEDTUBE PRN PRN Hypoglycemia Simple Syrup 30 ml 12/22/19 10:05 Simple Syrup FEEDTUBE PRN PRN Hypoglycemia Sodium Bicarbonate 325 mg 12/22/19 10:05 Sodium Bicarbonate FEEDTUBE PRN PRN For Clogged Feeding Tube Sodium Chloride 10 ml 12/19/19 22:00 12/23/19 10:05 Sodium Chloride Flush Syringe 10 Ml IV 10 ml BID NIKOLAS Administration Sodium Chloride 10 ml 12/19/19 12:13 Sodium Chloride Flush Syringe 10 Ml IV PRN PRN LINE FLUSH Thiamine HCl 100 mg 12/20/19 10:00 12/23/19 10:04 Vitamin B-1 PO 100 mg DAILY NIKOLAS Administration Timolol Maleate 1 drops 12/19/19 22:00 12/23/19 10:39 Timoptic OU 1 drops BID NIKOLAS Administration Nutrition/Malnutrition Assess - Dietary Evaluation Nutrition/Malnutrition Findings: Nutrition Notes Start: 12/20/19 08:53 Freq: Status: Active Protocol: Document 12/22/19 09:59 LM (Rec: 12/22/19 10:05 LM [email or web address]) Nutrition Notes Need for Assessment generated from: MD Order Initial or Follow up Reassessment Current Diagnosis Acute Kidney Injury,COPD, Diabetes,Hypertension, Respiratory Failure,Stroke Other Pertinent Diagnosis GI bleed, encephalopathy, debility Current Diet NPO Labs/Tests Reviewed Pertinent Medications Reviewed Height 5 ft 6 in Weight 74.59 kg [place] Body Weight (kg) 64.54 BMI 26.5 Weight Status Overweight Subjective/Other Information MD consult for TF. Pt no longer on vent. Burn Absent Trauma Absent GI Symptoms Other Current % PO Negligible Minimum of two criteria No physical signs of malnutrition #1 Nutrition Diagnosis Inadequate oral intake Diagnosis Progress(for reassessment Continues documentation) Is patient on ventilator? No Is Patient Ambulatory and/or Out of Bed No REE-([facility]-confined to bed) [phone] Calculation Used for Recommendations [facility] Additional Notes Protein: 60-90g (0.8-1.2g/kg) Fluid: 1 ml/kcal Nutrition Intervention Change Diet Order: TF Nutrition Support: Glucerna 1.2 at 65 ml/hr Flush 200 ml q4h for hypernatremia Flush 100 ml q4h once resolved Kcal 1,872 Protein (gm) 94 Fluid (mL) 1,256 Goal #1 TF start tolerance Anticipated Discharge Needs: TF Follow-Up By: 12/24/19 Additional Comments F/U for TF start/tolerance
[2019-12-23] MEDS ORDERED: POTASSIUM CHLORIDE 20 MEQ PACKET FEEDTUBE ONE (14:00)
[2019-12-23] MEDS: CITALOPRAM 10 MG TAB PO SCH (15:05)
[2019-12-23] MEDS: FERROUS SULFATE 308 MG (62mg Elemental Iron) / 7 ML ELIXIR FEEDTUBE SCH ×2 (15:07→22:01)
--- NOTE | 2019-12-23 15:22 | Progress Note ---
Assessment and Plan Cultures: Blood culture 12/19/2019 group B strep 4/ Sputum culture 12/19/2019 group B strep, Proteus mirabilis A/P:54-year-old man who is a resident of a residential facility with a past medical history of COPD, diabetes, stroke, encephalopathy, debility admitted with UGIB, found to have GBS bacteremia #GBS bacteremia: Unclear source, possible UGIB but typically cutaneous or urinary source for GBS. Continue vancomycin given documented penicillin allergy and patient is non-verbal so unable to discern severity of allergy. Ordered repeat cultures to document clearance. Once cultures negative for [address] midline for OPAT. #Tracheitis: patient without significant PNA on CXR, as such likely colonization. GBS will be incidentally treated with vancomycin, will give 5 days of levofloxacin as well for Proteus. #Diabetes: tight glycemic control for best outcomes. #Penicillin allergy: non-verbal, unable to properly assess. Recs: -Continue vancomycin dosed per pharmacy, goal trough 10-20 -Start levofloxacin 700 mg every 24 hours to complete 5 days of therapy. -Ordered repeat blood cultures -Ordered echocardiogram -Okay to place midline when repeat cultures negative for 48 hours. -Discussed with pulm doc re: patient's exposure to COVID-19 patient in the ER. Patient remains asymptomatic, however his facility won't take him back without negative test. Agree with testing for now, though his risk of infection is extremely low. Thank for the consult, will continue to follow Andrez Nixon MD [facility] ([facility]) M: [phone] O: [phone] F: [phone] Subjective Date of service: 12/23/19 Principal diagnosis: Ac upper GI bleed; Shock; Ac hypoxemic resp failure; DM II; H/O HTN Interval history: No new issues. Afebrile. Objective - Exam Narrative Exam: Physical Exam: Constitutional: Nonverbal, awake Eyes: Conjunctivae/corneas clear. No icterus. No ptosis. Neck: Supple, no meningeal signs Oral: dentition fair, no thrush Cardiovascular: S1, S2 normal. Respiratory: Good air entry, clear to auscultation bilaterally GI: Soft, non-tender; bowel sounds normal. No peritoneal signs. Musculoskeletal: No pedal edema, no cyanosis. Skin: No rash or abscess Hem/Lymphatic: No palpable cervical or supraclavicular nodes. No lymphangitis Psych: Nonverbal Neurological: Nonverbal - Constitutional Vitals: Vital Signs Temp Pulse Resp BP Pulse Ox 98.4 F 81 18 142/84 100 12/23/19 08:34 12/23/19 10:05 12/23/19 10:00 12/23/19 10:05 12/23/19 10:00 Temperature -Last 24 Hours Temperature 98.4 F Temperature 98.7 F Temperature 98.1 F Temperature 98.7 F - Labs CBC & Chem 7: 12/23/19 06:38 12/23/19 06:38 Labs: Abnormal lab results 12/22/19 12/22/19 12/23/19 Range/Units 18:15 23:47 05:46 RBC (3.65-5.03) M/mm3 Hgb (11.8-15.2) gm/dl Hct (35.5-45.6) % MCV (84-94) fl MCH (28-32) pg RDW (13.2-15.2) % Potassium (3.6-5.0) mmol/L Chloride (98-107) mmol/L Creatinine (0.8-1.5) mg/dL Glucose (75-100) mg/dL POC Glucose 114 H 121 H 124 H (70-105) Calcium (8.4-10.2) mg/dL 12/23/19 12/23/19 Range/Units 06:38 06:38 RBC 2.94 L (3.65-5.03) M/mm3 Hgb 7.6 L (11.8-15.2) gm/dl Hct 23.8 L (35.5-45.6) % MCV 81 L (84-94) fl MCH 26 L (28-32) pg RDW 17.0 H (13.2-15.2) % Potassium 3.3 L (3.6-5.0) mmol/L Chloride 107.5 H (98-107) mmol/L Creatinine 0.4 L (0.8-1.5) mg/dL Glucose 132 H (75-100) mg/dL POC Glucose (70-105) Calcium 8.1 L (8.4-10.2) mg/dL
[2019-12-23] MEDS: LATANOPROST 0.005% OPHTH SOLN 2.5 ML OD SCH (22:00)
[2019-12-24] MEDS: VANCOMYCIN/NS 1 GM/250 ML 1 GM/250 ML BAG IV SCH ×2 (05:30→22:13)
--- NOTE | 2019-12-24 08:29 | Event Note ---
Date: 12/24/19 Covid 19 pre-test survey filled and sent to [facility] yesterday.
[2019-12-24] MEDS: QUEtiapine 25 MG TAB PO SCH ×4 (09:14→22:57)
--- NOTE | 2019-12-24 10:51 | Progress Note ---
Assessment and Plan Assessment and plan: Acute upper GI bleed. Patient underwent endoscopy which revealed esophagitis in the lower third of the esophagus. There was a cratered, clean based ulcer in the incisura of the stomach. No high risk bleeding stigmata was seen. Continue to monitor H&H and transfuse for hemoglobin less than 7. Continue IV PPI. Acute hypoxic respiratory failure. was intubated, now extubated, Pulmonary following. Diabetes mellitus type 2. Continue Accu-Cheks and sliding scale insulin. Hypertension. Patient actually hypotensive given the bleed. Metabolic acidosis/lactic acidosis. Etiology likely secondary to hypotension/hypoperfusion from GI bleed. Patient with no obvious signs of infection. SIRS. Etiology secondary to above. Check blood cultures, UA and urine culture. 12/21/19 patient with acute resp failure. was intubated, now extubated. Transfer to medical floor 12/22/19 Got a text, followed by Call from Shanika, head of Risk management. She states Patient has been on contact and droplet precaution by error. Nurse Lamar caruso had mentioned to me 12/20 that patient on isolation because he was in a room with patient with Covid-19 positive. I discussed with Shanika, valet manager. She told me today that this is an error, patient was not in same room with Covid positive patient, but a different room. Will dc isolation., Transfer to another floor. 12/23/19. Got a call from Dr. Laws( aka Dr. Crawley) yesterday that patient should be on contact and droplet isolation because he was in room in ED with patient that tested to be covid -19. He states it happened in one of rooms in which patient only by curtains. I discussed with Dr. Nixon. Will fill survey and sent to [facility] 12/24/19 No more bleeding. Covid 19 testing survey done yesterday History Interval history: Patient presented with GI bleed Hospitalist Physical - Physical exam Narrative exam: GEN: Not in acute distress, lying in bed HEENT: Normocephalic, atraumatic, Neck: supple, No JVD Lungs: clear, no crackles, heart;S1 and S2 reg, tachy, no murmurs, rubs or gallop Abd:soft, non tender, non distended, normal bowel sounds, PEG tube Ext: No edema, no clubbing, no cyanosis, Neuro: Awake,alert, aphasia,prev stroke - Constitutional Vitals: Temp Pulse Resp BP Pulse Ox 98.5 F 81 18 124/83 100 12/23/19 23:55 12/24/19 09:14 12/23/19 23:55 12/23/19 23:55 12/24/19 09:15 General appearance: Present: other (Orally intubatedon mechanical ventilation) Results - Labs CBC & Chem 7: 12/23/19 06:38 12/23/19 06:38 Labs: Laboratory Last Values WBC 6.8 K/mm3 (4.5-11.0) 12/23/19 06:38 RBC 2.94 M/mm3 (3.65-5.03) L 12/23/19 06:38 Hgb 7.6 gm/dl (11.8-15.2) L 12/23/19 06:38 Hct 23.8 % (35.5-45.6) L 12/23/19 06:38 MCV 81 fl (84-94) L 12/23/19 06:38 MCH 26 pg (28-32) L 12/23/19 06:38 MCHC 32 % (32-34) 12/23/19 06:38 RDW 17.0 % (13.2-15.2) H 12/23/19 06:38 Plt Count 234 K/mm3 (140-440) 12/23/19 06:38 Lymph % (Auto) 16.7 % (13.4-35.0) 12/21/19 04:38 [place] % (Auto) 10.8 % (0.0-7.3) H 12/21/19 04:38 Eos % (Auto) 1.2 % (0.0-4.3) 12/21/19 04:38 Baso % (Auto) 0.5 % (0.0-1.8) 12/21/19 04:38 Lymph # 1.4 K/mm3 (1.2-5.4) 12/21/19 04:38 [place] # 0.9 K/mm3 (0.0-0.8) H 12/21/19 04:38 Eos # 0.1 K/mm3 (0.0-0.4) 12/21/19 04:38 Baso # 0.0 K/mm3 (0.0-0.1) 12/21/19 04:38 Seg Neutrophils % 70.8 % (40.0-70.0) H 12/21/19 04:38 Seg Neutrophils # 6.0 K/mm3 (1.8-7.7) 12/21/19 04:38 PT 15.3 Sec. (12.2-14.9) H 12/19/19 09:14 INR 1.19 (0.87-1.13) H 12/19/19 09:14 APTT 26.4 Sec. (24.2-36.6) 12/19/19 09:14 ABG pH 7.432 pH Units (7.350-7.450) 12/20/19 12:15 ABG pCO2 36.0 mm Hg 12/20/19 12:15 ABG pO2 150.8 mm Hg (80.0-90.0) H 12/20/19 12:15 ABG HCO3 23.5 mmol/L (20.0-26.0) 12/20/19 12:15 ABG O2 Saturation 98.9 % (95.0-99.0) 12/20/19 12:15 ABG O2 Content 7.8 (0.0-44) 12/20/19 12:15 ABG Base Excess -0.8 mmol/L (-2.0-3.0) 12/20/19 12:15 ABG Hemoglobin 5.5 gm/dl (14.0-18.0) L 12/20/19 12:15 ABG Carboxyhemoglobin 1.9 % (0.0-5.0) 12/20/19 12:15 ABG Methemoglobin 0.5 % (0.0-1.5) 12/20/19 12:15 Oxyhemoglobin 96.5 % (95.0-99.0) 12/20/19 12:15 FiO2 35 % 12/20/19 12:15 Sodium 143 mmol/L (137-145) 12/23/19 06:38 Potassium 3.3 mmol/L (3.6-5.0) L 12/23/19 06:38 Chloride 107.5 mmol/L (98-107) H 12/23/19 06:38 Carbon Dioxide 22 mmol/L (22-30) 12/23/19 06:38 Anion Gap 17 mmol/L 12/23/19 06:38 BUN 11 mg/dL (9-20) 12/23/19 06:38 Creatinine 0.4 mg/dL (0.8-1.5) L 12/23/19 06:38 Estimated GFR > 60 ml/min 12/23/19 06:38 BUN/Creatinine Ratio 28 % 12/23/19 06:38 Glucose 132 mg/dL (75-100) H 12/23/19 06:38 POC Glucose 179 (70-105) H 12/24/19 05:34 Lactic Acid 5.10 mmol/L (0.7-2.0) H* 12/19/19 15:55 Calcium 8.1 mg/dL (8.4-10.2) L 12/23/19 06:38 Magnesium 2.00 mg/dL (1.7-2.3) 12/19/19 09:14 Total Bilirubin 0.20 mg/dL (0.1-1.2) 12/19/19 09:14 AST 13 units/L (5-40) 12/19/19 09:14 ALT 11 units/L (7-56) 12/19/19 09:14 Alkaline Phosphatase 85 units/L (35-129) 12/19/19 09:14 Ammonia 35.0 umol/L (25-60) 12/19/19 09:14 Total Protein 6.6 g/dL (6.3-8.2) 12/19/19 09:14 Albumin 3.4 g/dL (3.9-5) L 12/19/19 09:14 Albumin/Globulin Ratio 1.1 % 12/19/19 09:14 Lipase 49 units/L (13-60) 12/19/19 09:14 Urine Color Yellow (Yellow) 12/19/19 10:02 Urine Turbidity Slightly-cloudy (Clear) 12/19/19 10:02 Urine pH 5.0 (5.0-7.0) 12/19/19 10:02 Ur Specific [place] 1.024 (1.003-1.030) 12/19/19 10:02 Urine Protein 30 mg/dl mg/dL (Negative) 12/19/19 10:02 Urine Glucose (UA) 50 mg/dL (Negative) 12/19/19 10:02 Urine Ketones Neg mg/dL (Negative) 12/19/19 10:02 Urine Blood Neg (Negative) 12/19/19 10:02 Urine Nitrite Neg (Negative) 12/19/19 10:02 Urine Bilirubin Neg (Negative) 12/19/19 10:02 Urine Urobilinogen < 2.0 mg/dL (<2.0) 12/19/19 10:02 Ur Leukocyte Esterase Neg (Negative) 12/19/19 10:02 Urine WBC (Auto) 2.0 /HPF (0.0-6.0) 12/19/19 10:02 Urine RBC (Auto) 1.0 /HPF (0.0-6.0) 12/19/19 10:02 U Epithel Cells (Auto) < 1.0 /HPF (0-13.0) 12/19/19 10:02 Hyaline Casts 11 /LPF 12/19/19 10:02 Urine Mucus 2+ /HPF 12/19/19 10:02 Urine Sperm Few /HPF (WORKING SECOND HAND) 12/19/19 10:02 Vancomycin Trough 21.4 ug/mL (5.0-20.0) H 12/23/19 20:50 Random Vancomycin 7.5 ug/mL (0-40.0) 12/21/19 23:02 Blood Type O POSITIVE 12/19/19 09:10 Antibody Screen Negative 12/19/19 09:10 Crossmatch See Detail 12/19/19 09:10 Microbiology: Microbiology 12/19/19 09:14 Peripheral/Venous Blood Culture - Preliminary Beta Hemolytic Strep Group B Streptococcus Anginosus Group 12/23/19 00:41 Peripheral/Venous Blood Culture - Preliminary NO GROWTH AFTER 24 HOURS 12/22/19 23:56 Peripheral/Venous Blood Culture - Preliminary NO GROWTH AFTER 24 HOURS Hurtado/IV: Voiding Method Indwelling Catheter IV Catheter Type [Left Forearm INT / Saline Lock ] IV Catheter Type [Left Triple Lumen Cath Subclavian] IV Catheter Type [Right INT / Saline Lock Antecubital] Active Medications - Current Medications Current Medications: Generic Name Dose Route Start Last Admin Trade Name Freq PRN Reason Stop Dose Admin Acetaminophen 650 mg 12/19/19 12:15 Tylenol PO Q4H PRN Fever >101 Lipase/Protease/Amylase 1 each 12/22/19 10:[address] 10,500 Unit FEEDTUBE PRN PRN For Clogged Feeding Tube Ascorbic Acid 500 mg 12/19/19 13:00 12/23/19 22:01 Vitamin C PO 500 mg Q12HR NIKOLAS Administration Atorvastatin Calcium 20 mg 12/19/19 22:00 12/23/19 22:01 Lipitor PO 20 mg QHS NIKOLAS Administration Bismuth Subsalicylate 524 mg 12/19/19 12:15 Pepto Bismol PO Q6H PRN Diarrhea Citalopram Hydrobromide 30 mg 12/19/19 14:00 12/23/19 15:05 Celexa PO 30 mg DAILY NIKOLAS Administration Ferrous Sulfate 308 mg 12/20/19 22:00 12/23/19 22:01 Ferrous Sulfate FEEDTUBE 308 mg BID NIKOLAS Administration Hydrophilic Ointment 1 applic 12/19/19 10:35 Vaseline Lip Therapy TP Q2HR PRN Dry Lips Dextrose 1,000 mls @ 75 mls/hr 12/21/19 17:00 12/21/19 18:35 D5w IV 75 mls/hr DIRECT NIKOLAS Administration Levofloxacin/Dextrose 750 mg in 150 mls @ 100 mls/hr 12/23/19 10:00 12/23/19 10:04 Levaquin 750mg/150ml IV 12/27/19 11:29 100 mls/hr Q24HR NIKOLAS Administration Vancomycin HCl 1 gm in 250 mls @ 167.007 mls/hr 12/24/19 22:00 Vancomycin/Ns 1 Gm/250 Ml IV Q12HR NIKOLAS Lansoprazole 30 mg 12/23/19 10:00 12/23/19 22:01 Prevacid Solutab FEEDTUBE 30 mg BID NIKOLAS Administration Latanoprost 1 drops 12/19/19 22:00 12/23/19 22:00 Latanoprost 0.005% OD 1 drops QHS NIKOLAS Administration Lisinopril 10 mg 12/19/19 13:00 12/23/19 10:05 Zestril PO 10 mg QDAY NIKOLAS Administration Magnesium Oxide 400 mg 12/20/19 10:00 12/23/19 10:04 Mag-Ox PO 400 mg QDAY NIKOLAS Administration Multi-Ingred Cream/Lotion/Oil/Oint 1 applic 12/19/19 10:35 Artificial Tears Ophth Oint OU Q4HR PRN Dry Eye(s) Quetiapine Fumarate 50 mg 12/19/19 14:00 12/23/19 22:01 Seroquel PO 50 mg TID NIKOLAS Administration Simple Syrup 15 ml 12/22/19 09:51 Simple Syrup FEEDTUBE PRN PRN Hypoglycemia Simple Syrup 30 ml 12/22/19 10:05 Simple Syrup FEEDTUBE PRN PRN Hypoglycemia Sodium Bicarbonate 325 mg 12/22/19 10:05 Sodium Bicarbonate FEEDTUBE PRN PRN For Clogged Feeding Tube Sodium Chloride 10 ml 12/19/19 22:00 12/23/19 22:02 Sodium Chloride Flush Syringe 10 Ml IV 10 ml BID NIKOLAS Administration Sodium Chloride 10 ml 12/19/19 12:13 Sodium Chloride Flush Syringe 10 Ml IV PRN PRN LINE FLUSH Thiamine HCl 100 mg 12/20/19 10:00 12/23/19 10:04 Vitamin B-1 PO 100 mg DAILY NIKOLAS Administration Timolol Maleate 1 drops 12/19/19 22:00 12/23/19 22:00 Timoptic OU 1 drops BID NIKOLAS Administration Nutrition/Malnutrition Assess - Dietary Evaluation Nutrition/Malnutrition Findings: Nutrition Notes Start: 12/20/19 08:53 Freq: Status: Active Protocol: Document 12/22/19 09:59 LM (Rec: 12/22/19 10:05 LM [id number]) Nutrition Notes Need for Assessment generated from: MD Order Initial or Follow up Reassessment Current Diagnosis Acute Kidney Injury,COPD, Diabetes,Hypertension, Respiratory Failure,Stroke Other Pertinent Diagnosis GI bleed, encephalopathy, debility Current Diet NPO Labs/Tests Reviewed Pertinent Medications Reviewed Height 5 ft 6 in Weight 74.59 kg Capac Body Weight (kg) 64.54 BMI 26.5 Weight Status Overweight Subjective/Other Information MD consult for TF. Pt no longer on vent. Burn Absent Trauma Absent GI Symptoms Other Current % PO Negligible Minimum of two criteria No physical signs of malnutrition #1 Nutrition Diagnosis Inadequate oral intake Diagnosis Progress(for reassessment Continues documentation) Is patient on ventilator? No Is Patient Ambulatory and/or Out of Bed No REE-([facility]-confined to bed) [phone] Calculation Used for Recommendations [facility] Additional Notes Protein: 60-90g (0.8-1.2g/kg) Fluid: 1 ml/kcal Nutrition Intervention Change Diet Order: TF Nutrition Support: Glucerna 1.2 at 65 ml/hr Flush 200 ml q4h for hypernatremia Flush 100 ml q4h once resolved Kcal 1,872 Protein (gm) 94 Fluid (mL) 1,256 Goal #1 TF start tolerance Anticipated Discharge Needs: TF Follow-Up By: 12/24/19 Additional Comments F/U for TF start/tolerance
[2019-12-24] MEDS: FERROUS SULFATE 308 MG (62mg Elemental Iron) / 7 ML ELIXIR FEEDTUBE SCH ×2 (11:15→22:12)
[2019-12-24] MEDS: CITALOPRAM 10 MG TAB PO SCH (11:15)
[2019-12-24] MEDS: LANSOPRAZOLE 30 MG SOLUTAB FEEDTUBE SCH ×2 (11:16→22:10)
[2019-12-24] MEDS: MAGNESIUM OXIDE 400 MG TAB PO SCH (11:16)
[2019-12-24] MEDS: TIMOLOL 0.5% OPHTH SOLN 5 ML OU SCH ×2 (11:17→23:00)
[2019-12-24] MEDS: THIAMINE 100 MG TAB PO SCH (11:17)
[2019-12-24] MEDS: LISINOPRIL 10 MG TAB PO SCH (11:18)
[2019-12-24] MEDS: ASCORBIC ACID 500 MG TAB PO SCH ×2 (11:18→22:10)
--- NOTE | 2019-12-24 13:46 | Progress Note ---
Assessment and Plan Acute upper GI bleed Severe Sepsis witrh Shock Acute hypoxemic respiratory failure Diabetes mellitus type 2 Hypertension Metabolic acidosis/lactic acidosis - COVID-19 testing pending re: ER exposure - no new issues otherwise; continue care as below - supplemental oxygen as needed to keep O2 sat's > 90% - continue contact and droplet isolation and follow clinically due to COVID-19 exposure - prn bronchodilators with pulmonary hygiene per RT - continue antiinfective's per ID recommendations for bacteremia / sepsis - PT/OT as tolerated - mobility protocols for pressure ulcer prophylaxis - continue accuchecks with glycemic control per SSI for target BG < 180 mg/dl - GI & VTE prophylaxis with PPI & SCD's - Flu & pneumovax addressed per protocol - continue other care per attending / other consultants ... re-evaluate in am & prn Subjective Date of service: 12/23/19 Principal diagnosis: Ac upper GI bleed; Shock; Ac hypoxemic resp failure; DM II; H/O HTN Interval history: LATE ENTRY NOTE FOR DOS 12/23/2019) Patient is seen today for: Acute upper GI bleed; Severe Sepsis witrh Shock; Acute hypoxemic respiratory failure; DM II; HTN; Metabolic acidosis/lactic acidosis Seen and examined at bedside; 24hour events reviewed; nursing and respiratory care staff consulted; no adverse overnight events reported to me; resting peacefully in bed; no fever spikes; no cough; breathing less labored; no inc reased oxygen needs Objective Vital Signs - 12hr 12/24/19 12/24/19 12/24/19 05:22 07:34 08:44 Pulse Rate 87 Respiratory 22 Rate Blood Pressure 142/86 148/79 O2 Sat by Pulse 100 100 Oximetry 12/24/19 12/24/19 09:14 09:15 Pulse Rate 81 Respiratory Rate Blood Pressure O2 Sat by Pulse 100 Oximetry Constitutional: no acute distress Eyes: non-icteric ENT: oropharynx moist Neck: supple, no lymphadenopathy, no JVD Effort: normal Ascultation: Bilateral: diminished breath sounds Percussion: Bilateral: not dull Cardiovascular: regular rate and rhythm Gastrointestinal: normoactive bowel sounds, soft, non-tender, non-distended Integumentary: rash Extremities: no cyanosis, no edema, pulses normal Neurologic: pupils equal and round, other (mumbles sometimes appropriate replies to questions) Psychiatric: other (affect flat) CBC and BMP: 12/23/19 06:38 12/23/19 06:38 ABG, PT/INR, D-dimer: ABG ABG pH 7.432 pH Units (7.350-7.450) 12/20/19 12:15 ABG pCO2 36.0 mm Hg 12/20/19 12:15 ABG pO2 150.8 mm Hg (80.0-90.0) H 12/20/19 12:15 ABG O2 Saturation 98.9 % (95.0-99.0) 12/20/19 12:15 PT/INR, D-dimer PT 15.3 Sec. (12.2-14.9) H 12/19/19 09:14 INR 1.19 (0.87-1.13) H 12/19/19 09:14 Abnormal lab findings: Abnormal Labs 12/19/19 12/19/19 12/19/19 09:10 09:14 09:14 WBC 12.1 H RBC Hgb 10.0 L Hct 32.3 L MCV 81 L MCH 25 L MCHC 31 L RDW 17.7 H Lymph % (Auto) [place] % (Auto) [place] # 0.9 H Seg Neutrophils % 78.2 H Seg Neutrophils # 9.5 H PT 15.3 H INR 1.19 H ABG pH ABG pO2 ABG HCO3 ABG O2 Saturation ABG Base Excess ABG Hemoglobin Sodium Potassium Chloride Carbon Dioxide BUN Creatinine Glucose POC Glucose Lactic Acid Calcium Albumin Vancomycin Trough Crossmatch See Detail 12/19/19 12/19/19 12/19/19 09:14 09:14 10:05 WBC RBC Hgb Hct MCV MCH MCHC RDW Lymph % (Auto) [place] % (Auto) [place] # Seg Neutrophils % Seg Neutrophils # PT INR ABG pH ABG pO2 ABG HCO3 ABG O2 Saturation ABG Base Excess ABG Hemoglobin Sodium Potassium Chloride Carbon Dioxide 20 L BUN 55 H Creatinine Glucose 222 H POC Glucose 212 H Lactic Acid 3.10 H* Calcium Albumin 3.4 L Vancomycin Trough Crossmatch 12/19/19 12/19/19 12/19/19 10:30 12:30 15:55 WBC RBC Hgb Hct MCV MCH MCHC RDW Lymph % (Auto) [place] % (Auto) [place] # Seg Neutrophils % Seg Neutrophils # PT INR ABG pH 7.277 L ABG pO2 195.1 H ABG HCO3 19.2 L ABG O2 Saturation 99.2 H ABG Base Excess -7.1 L ABG Hemoglobin 9.4 L Sodium Potassium Chloride Carbon Dioxide BUN Creatinine Glucose POC Glucose Lactic Acid 2.80 H* 5.10 H* Calcium Albumin Vancomycin Trough Crossmatch 12/20/19 12/20/19 12/20/19 04:20 04:59 04:59 WBC 11.3 H RBC 3.21 L Hgb 8.0 L Hct 26.0 L D MCV 81 L MCH 25 L MCHC 31 L RDW 17.7 H Lymph % (Auto) 12.2 L [place] % (Auto) 11.1 H [place] # 1.2 H Seg Neutrophils % 76.5 H Seg Neutrophils # 8.6 H PT INR ABG pH ABG pO2 139.7 H ABG HCO3 ABG O2 Saturation ABG Base Excess ABG Hemoglobin 9.2 L Sodium 147 H Potassium Chloride 113.7 H Carbon Dioxide BUN 29 H Creatinine 0.6 L D Glucose 172 H POC Glucose Lactic Acid Calcium Albumin Vancomycin Trough Crossmatch 12/20/19 12/21/19 12/21/19 12:15 04:38 04:38 WBC RBC 2.55 L Hgb 6.5 L Hct 20.9 L MCV 82 L MCH 26 L MCHC 31 L RDW 18.1 H Lymph % (Auto) [place] % (Auto) 10.8 H [place] # 0.9 H Seg Neutrophils % 70.8 H Seg Neutrophils # PT INR ABG pH ABG pO2 150.8 H ABG HCO3 ABG O2 Saturation ABG Base Excess ABG Hemoglobin 5.5 L Sodium 149 H Potassium 3.5 L Chloride 114.9 H Carbon Dioxide BUN 21 H Creatinine 0.5 L Glucose 114 H POC Glucose Lactic Acid Calcium Albumin Vancomycin Trough Crossmatch 12/21/19 12/22/19 12/22/19 23:02 10:34 10:34 WBC RBC 3.24 L Hgb 7.7 L 8.4 L Hct 24.8 L 27.0 L MCV 83 L MCH 26 L MCHC 31 L RDW 17.7 H Lymph % (Auto) [place] % (Auto) [place] # Seg Neutrophils % Seg Neutrophils # PT INR ABG pH ABG pO2 ABG HCO3 ABG O2 Saturation ABG Base Excess ABG Hemoglobin Sodium 147 H Potassium Chloride 112.3 H Carbon Dioxide 20 L BUN Creatinine 0.5 L Glucose 102 H POC Glucose Lactic Acid Calcium Albumin Vancomycin Trough Crossmatch 12/22/19 12/22/19 12/22/19 11:58 18:15 23:47 WBC RBC Hgb Hct MCV MCH MCHC RDW Lymph % (Auto) [place] % (Auto) [place] # Seg Neutrophils % Seg Neutrophils # PT INR ABG pH ABG pO2 ABG HCO3 ABG O2 Saturation ABG Base Excess ABG Hemoglobin Sodium Potassium Chloride Carbon Dioxide BUN Creatinine Glucose POC Glucose 126 H 114 H 121 H Lactic Acid Calcium Albumin Vancomycin Trough Crossmatch 12/23/19 12/23/19 12/23/19 05:46 06:38 06:38 WBC RBC 2.94 L Hgb 7.6 L Hct 23.8 L MCV 81 L MCH 26 L MCHC RDW 17.0 H Lymph % (Auto) [place] % (Auto) [place] # Seg Neutrophils % Seg Neutrophils # PT INR ABG pH ABG pO2 ABG HCO3 ABG O2 Saturation ABG Base Excess ABG Hemoglobin Sodium Potassium 3.3 L Chloride 107.5 H Carbon Dioxide BUN Creatinine 0.4 L Glucose 132 H POC Glucose 124 H Lactic Acid Calcium 8.1 L Albumin Vancomycin Trough Crossmatch 12/23/19 12/23/19 12/24/19 15:54 20:50 00:06 WBC RBC Hgb Hct MCV MCH MCHC RDW Lymph % (Auto) [place] % (Auto) [place] # Seg Neutrophils % Seg Neutrophils # PT INR ABG pH ABG pO2 ABG HCO3 ABG O2 Saturation ABG Base Excess ABG Hemoglobin Sodium Potassium Chloride Carbon Dioxide BUN Creatinine Glucose POC Glucose 150 H 135 H Lactic Acid Calcium Albumin Vancomycin Trough 21.4 H Crossmatch 12/24/19 05:34 WBC RBC Hgb Hct MCV MCH MCHC RDW Lymph % (Auto) [place] % (Auto) [place] # Seg Neutrophils % Seg Neutrophils # PT INR ABG pH ABG pO2 ABG HCO3 ABG O2 Saturation ABG Base Excess ABG Hemoglobin Sodium Potassium Chloride Carbon Dioxide BUN Creatinine Glucose POC Glucose 179 H Lactic Acid Calcium Albumin Vancomycin Trough Crossmatch Allied health notes reviewed: nursing
--- NOTE | 2019-12-24 13:55 | Progress Note ---
Assessment and Plan Acute upper GI bleed Severe Sepsis witrh Shock Acute hypoxemic respiratory failure Diabetes mellitus type 2 Hypertension Metabolic acidosis/lactic acidosis - no new issues otherwise; continue care as below - COVID-19 testing pending re: ER exposure - supplemental oxygen as needed to keep O2 sat's > 90% - continue contact and droplet isolation and follow clinically due to COVID-19 exposure - prn bronchodilators with pulmonary hygiene per RT - continue antiinfective's per ID recommendations for bacteremia / sepsis - PT/OT as tolerated - mobility protocols for pressure ulcer prophylaxis - continue accuchecks with glycemic control per SSI for target BG < 180 mg/dl - GI & VTE prophylaxis with PPI & SCD's - Flu & pneumovax addressed per protocol - continue other care per attending / other consultants ... re-evaluate in am & prn Subjective Date of service: 12/24/19 Principal diagnosis: Ac upper GI bleed; Shock; Ac hypoxemic resp failure; DM II; H/O HTN Interval history: Patient is seen today for: Acute upper GI bleed; Severe Sepsis witrh Shock; A cute hypoxemic respiratory failure; DM II; HTN; Metabolic acidosis/lactic acidosis Seen and examined at bedside; 24hour events reviewed; nursing and respiratory care staff consulted; no adverse overnight events reported to me; resting peacefully in bed; awaiting COVID result; No cough no fevers Objective Vital Signs - 12hr 12/24/19 12/24/19 12/24/19 05:22 07:34 08:44 Pulse Rate 87 Respiratory 22 Rate Blood Pressure 142/86 148/79 O2 Sat by Pulse 100 100 Oximetry 12/24/19 12/24/19 09:14 09:15 Pulse Rate 81 Respiratory Rate Blood Pressure O2 Sat by Pulse 100 Oximetry Constitutional: no acute distress Eyes: non-icteric ENT: oropharynx moist Neck: supple, no lymphadenopathy, no JVD Effort: normal Ascultation: Bilateral: diminished breath sounds, rhonchi Percussion: Bilateral: not dull Cardiovascular: regular rate and rhythm Gastrointestinal: normoactive bowel sounds, soft, non-tender, non-distended Integumentary: rash Extremities: no cyanosis, no edema, pulses normal Neurologic: pupils equal and round, other (mumbles sometimes appropriate replies to questions) Psychiatric: other (affect flat) CBC and BMP: 12/27/19 04:32 12/27/19 04:32 ABG, PT/INR, D-dimer: ABG ABG pH 7.432 pH Units (7.350-7.450) 12/20/19 12:15 ABG pCO2 36.0 mm Hg 12/20/19 12:15 ABG pO2 150.8 mm Hg (80.0-90.0) H 12/20/19 12:15 ABG O2 Saturation 98.9 % (95.0-99.0) 12/20/19 12:15 PT/INR, D-dimer PT 15.3 Sec. (12.2-14.9) H 12/19/19 09:14 INR 1.19 (0.87-1.13) H 12/19/19 09:14 Abnormal lab findings: Abnormal Labs 12/19/19 12/19/19 12/19/19 09:10 09:14 09:14 WBC 12.1 H RBC Hgb 10.0 L Hct 32.3 L MCV 81 L MCH 25 L MCHC 31 L RDW 17.7 H Lymph % (Auto) [place] % (Auto) [place] # 0.9 H Seg Neutrophils % 78.2 H Seg Neutrophils # 9.5 H PT 15.3 H INR 1.19 H ABG pH ABG pO2 ABG HCO3 ABG O2 Saturation ABG Base Excess ABG Hemoglobin Sodium Potassium Chloride Carbon Dioxide BUN Creatinine Glucose POC Glucose Lactic Acid Calcium Albumin Vancomycin Trough Crossmatch See Detail 12/19/19 12/19/19 12/19/19 09:14 09:14 10:05 WBC RBC Hgb Hct MCV MCH MCHC RDW Lymph % (Auto) [place] % (Auto) [place] # Seg Neutrophils % Seg Neutrophils # PT INR ABG pH ABG pO2 ABG HCO3 ABG O2 Saturation ABG Base Excess ABG Hemoglobin Sodium Potassium Chloride Carbon Dioxide 20 L BUN 55 H Creatinine Glucose 222 H POC Glucose 212 H Lactic Acid 3.10 H* Calcium Albumin 3.4 L Vancomycin Trough Crossmatch 12/19/19 12/19/19 12/19/19 10:30 12:30 15:55 WBC RBC Hgb Hct MCV MCH MCHC RDW Lymph % (Auto) [place] % (Auto) [place] # Seg Neutrophils % Seg Neutrophils # PT INR ABG pH 7.277 L ABG pO2 195.1 H ABG HCO3 19.2 L ABG O2 Saturation 99.2 H ABG Base Excess -7.1 L ABG Hemoglobin 9.4 L Sodium Potassium Chloride Carbon Dioxide BUN Creatinine Glucose POC Glucose Lactic Acid 2.80 H* 5.10 H* Calcium Albumin Vancomycin Trough Crossmatch 12/20/19 12/20/19 12/20/19 04:20 04:59 04:59 WBC 11.3 H RBC 3.21 L Hgb 8.0 L Hct 26.0 L D MCV 81 L MCH 25 L MCHC 31 L RDW 17.7 H Lymph % (Auto) 12.2 L [place] % (Auto) 11.1 H [place] # 1.2 H Seg Neutrophils % 76.5 H Seg Neutrophils # 8.6 H PT INR ABG pH ABG pO2 139.7 H ABG HCO3 ABG O2 Saturation ABG Base Excess ABG Hemoglobin 9.2 L Sodium 147 H Potassium Chloride 113.7 H Carbon Dioxide BUN 29 H Creatinine 0.6 L D Glucose 172 H POC Glucose Lactic Acid Calcium Albumin Vancomycin Trough Crossmatch 12/20/19 12/21/19 12/21/19 12:15 04:38 04:38 WBC RBC 2.55 L Hgb 6.5 L Hct 20.9 L MCV 82 L MCH 26 L MCHC 31 L RDW 18.1 H Lymph % (Auto) [place] % (Auto) 10.8 H [place] # 0.9 H Seg Neutrophils % 70.8 H Seg Neutrophils # PT INR ABG pH ABG pO2 150.8 H ABG HCO3 ABG O2 Saturation ABG Base Excess ABG Hemoglobin 5.5 L Sodium 149 H Potassium 3.5 L Chloride 114.9 H Carbon Dioxide BUN 21 H Creatinine 0.5 L Glucose 114 H POC Glucose Lactic Acid Calcium Albumin Vancomycin Trough Crossmatch 12/21/19 12/22/19 12/22/19 23:02 10:34 10:34 WBC RBC 3.24 L Hgb 7.7 L 8.4 L Hct 24.8 L 27.0 L MCV 83 L MCH 26 L MCHC 31 L RDW 17.7 H Lymph % (Auto) [place] % (Auto) [place] # Seg Neutrophils % Seg Neutrophils # PT INR ABG pH ABG pO2 ABG HCO3 ABG O2 Saturation ABG Base Excess ABG Hemoglobin Sodium 147 H Potassium Chloride 112.3 H Carbon Dioxide 20 L BUN Creatinine 0.5 L Glucose 102 H POC Glucose Lactic Acid Calcium Albumin Vancomycin Trough Crossmatch 12/22/19 12/22/19 12/22/19 11:58 18:15 23:47 WBC RBC Hgb Hct MCV MCH MCHC RDW Lymph % (Auto) [place] % (Auto) [place] # Seg Neutrophils % Seg Neutrophils # PT INR ABG pH ABG pO2 ABG HCO3 ABG O2 Saturation ABG Base Excess ABG Hemoglobin Sodium Potassium Chloride Carbon Dioxide BUN Creatinine Glucose POC Glucose 126 H 114 H 121 H Lactic Acid Calcium Albumin Vancomycin Trough Crossmatch 12/23/19 12/23/19 12/23/19 05:46 06:38 06:38 WBC RBC 2.94 L Hgb 7.6 L Hct 23.8 L MCV 81 L MCH 26 L MCHC RDW 17.0 H Lymph % (Auto) [place] % (Auto) [place] # Seg Neutrophils % Seg Neutrophils # PT INR ABG pH ABG pO2 ABG HCO3 ABG O2 Saturation ABG Base Excess ABG Hemoglobin Sodium Potassium 3.3 L Chloride 107.5 H Carbon Dioxide BUN Creatinine 0.4 L Glucose 132 H POC Glucose 124 H Lactic Acid Calcium 8.1 L Albumin Vancomycin Trough Crossmatch 12/23/19 12/23/19 12/24/19 15:54 20:50 00:06 WBC RBC Hgb Hct MCV MCH MCHC RDW Lymph % (Auto) [place] % (Auto) [place] # Seg Neutrophils % Seg Neutrophils # PT INR ABG pH ABG pO2 ABG HCO3 ABG O2 Saturation ABG Base Excess ABG Hemoglobin Sodium Potassium Chloride Carbon Dioxide BUN Creatinine Glucose POC Glucose 150 H 135 H Lactic Acid Calcium Albumin Vancomycin Trough 21.4 H Crossmatch 12/24/19 05:34 WBC RBC Hgb Hct MCV MCH MCHC RDW Lymph % (Auto) [place] % (Auto) [place] # Seg Neutrophils % Seg Neutrophils # PT INR ABG pH ABG pO2 ABG HCO3 ABG O2 Saturation ABG Base Excess ABG Hemoglobin Sodium Potassium Chloride Carbon Dioxide BUN Creatinine Glucose POC Glucose 179 H Lactic Acid Calcium Albumin Vancomycin Trough Crossmatch Allied health notes reviewed: nursing
--- NOTE | 2019-12-24 16:52 | Progress Note ---
Assessment and Plan Cultures: Blood culture 12/19/2019 group B strep 4/ Sputum culture 12/19/2019 group B strep, Proteus mirabilis A/P:54-year-old man who is a resident of a longterm facility with a past medical history of COPD, diabetes, stroke, encephalopathy, debility admitted with UGIB, found to have GBS bacteremia #GBS bacteremia: Unclear source, possible UGIB but typically cutaneous or urinary source for GBS. Continue vancomycin given documented penicillin allergy and patient is non-verbal so unable to discern severity of allergy. Ordered repeat cultures to document clearance. Once cultures negative for [address] midline for OPAT. #Tracheitis: patient without significant PNA on CXR, as such likely colonization. GBS will be incidentally treated with vancomycin, will give 5 days of levofloxacin as well for Proteus. #Diabetes: tight glycemic control for best outcomes. #Penicillin allergy: non-verbal, unable to properly assess. Recs: -Continue vancomycin dosed per pharmacy, goal trough 10-20 -Start levofloxacin 700 mg every 24 hours to complete 5 days of therapy. -Ordered repeat blood cultures -Echo without vegetation, no need for JUAN at this time. -Okay to place midline when repeat cultures negative for 48 hours. -Discussed with pulm doc re: patient's exposure to COVID-19 patient in the ER. Patient remains asymptomatic, however his facility won't take him back without negative test. Agree with testing for now, though his risk of infection is extremely low. Thank for the consult, will continue to follow Andrez Nixon MD [facility], [place], [facility] M: [phone] O: [phone] F: [phone] Subjective Date of service: 12/24/19 Principal diagnosis: Ac upper GI bleed; Shock; Ac hypoxemic resp failure; DM II; H/O HTN Interval history: No new issues. Afebrile. Objective - Exam Narrative Exam: Physical Exam: Constitutional: Nonverbal, awake. Neck: Supple, no meningeal signs Oral: dentition fair, no thrush Cardiovascular: S1, S2 normal. Respiratory: Good air entry, clear to auscultation bilaterally GI: Soft, non-tender; bowel sounds normal. No peritoneal signs. Musculoskeletal: No pedal edema, no cyanosis. Skin: No rash or abscess Hem/Lymphatic: No palpable cervical or supraclavicular nodes. No lymphangitis Psych: Nonverbal Neurological: Nonverbal - Constitutional Vitals: Vital Signs Temp Pulse Resp BP Pulse Ox 98.5 F 81 22 148/79 100 12/23/19 23:55 12/24/19 09:14 12/24/19 07:34 12/24/19 07:34 12/24/19 09:15 Temperature -Last 24 Hours Temperature 98.5 F - Labs CBC & Chem 7: 12/23/19 06:38 12/23/19 06:38 Labs: Abnormal lab results 12/23/19 12/24/19 12/24/19 Range/Units 20:50 00:06 05:34 POC Glucose 135 H 179 H (70-105) Vancomycin Trough 21.4 H (5.0-20.0) ug/mL
[2019-12-24] MEDS: ACETAMINOPHEN 325 MG TAB PO PRN (22:31)
[2019-12-24] MEDS: LATANOPROST 0.005% OPHTH SOLN 2.5 ML OD SCH (22:59)
[2019-12-25] MEDS: DEXTROSE 5% IN WATER 1,000 ML IV SCH ×2 (06:17→20:54)
[2019-12-25] MEDS: QUEtiapine 25 MG TAB PO SCH ×4 (09:51→20:56)
[2019-12-25] MEDS: LANSOPRAZOLE 30 MG SOLUTAB FEEDTUBE SCH ×3 (09:51→21:34)
[2019-12-25] MEDS: MAGNESIUM OXIDE 400 MG TAB PO SCH (09:52)
[2019-12-25] MEDS: THIAMINE 100 MG TAB PO SCH (09:52)
[2019-12-25] MEDS: ASCORBIC ACID 500 MG TAB PO SCH ×3 (09:52→21:32)
[2019-12-25] MEDS: LISINOPRIL 10 MG TAB PO SCH (09:52)
[2019-12-25] MEDS: VANCOMYCIN/NS 1 GM/250 ML 1 GM/250 ML BAG IV SCH ×3 (09:59→21:30)
[2019-12-25] MEDS: TIMOLOL 0.5% OPHTH SOLN 5 ML OU SCH ×3 (12:06→21:30)
[2019-12-25] MEDS: FERROUS SULFATE 308 MG (62mg Elemental Iron) / 7 ML ELIXIR FEEDTUBE SCH ×3 (12:28→21:30)
[2019-12-25] MEDS: CITALOPRAM 10 MG TAB PO SCH (12:29)
--- NOTE | 2019-12-25 14:04 | Progress Note ---
Assessment and Plan Acute hypoxemic respiratory failure s/p MVS Acute upper GI bleed s/p EGD Oropharyngeal dysphagia s/p PEG Severe Sepsis witrh Shock Diabetes mellitus type 2 Hypertension Metabolic acidosis/lactic acidosis - COVID-19 testing pending re: ER exposure -once results are available, discharge to his facility if COVID-19 negative - no new issues otherwise; conitue all supportive care as outline - supplemental oxygen as needed to keep O2 sat's > 90% - continue contact and droplet isolation and follow clinically due to COVID-19 exposure - prn bronchodilators with pulmonary hygiene per RT - continue antiinfectives per ID recommendations for bacteremia / sepsis to complete course. Still has leukocytosis - PT/OT as tolerated - mobility protocol, off loading, and skin assessment per protocol for pressure ulcer prevention - continue accuchecks with glycemic control per SSI for target BG < 180 mg/dl - GI & VTE prophylaxis with PPI & SCD's - Flu & pneumovax addressed per protocol - continue other care per attending / other consultants ... re-evaluate in am & prn Subjective Date of service: 12/25/19 Principal diagnosis: Ac upper GI bleed; Shock; Ac hypoxemic resp failure; DM II; H/O HTN Interval history: Patient is seen today for: Acute upper GI bleed; Severe Sepsis witrh Shock; Acute hypoxemic respiratory failure s/p MVS; DM II; HTN; Metabolic acidosis/lactic acidosis Seen and examined at bedside; 24hour events reviewed; nursing and respiratory care staff consulted; no adverse overnight events reported to me; resting peacefully in bed; no gross G.I. bleeding; no emesis or overt aspiration, non- verbal Objective Vital Signs - 12hr 12/25/19 12/25/19 12/25/19 05:18 05:20 09:52 Temperature 98.7 F Pulse Rate 84 Respiratory 20 Rate Blood Pressure 144/84 151/86 O2 Sat by Pulse 96 Oximetry Constitutional: no acute distress, other Eyes: non-icteric ENT: oropharynx moist Neck: supple, no lymphadenopathy, no JVD Effort: normal Ascultation: Bilateral: diminished breath sounds, rhonchi Percussion: Bilateral: not dull Cardiovascular: regular rate and rhythm, other (S) Gastrointestinal: normoactive bowel sounds, soft, non-tender, non-distended Integumentary: rash Extremities: no cyanosis, no edema, pulses normal Neurologic: pupils equal and round, other (mumbles sometimes appropriate replies to questions) Psychiatric: other (affect flat) CBC and BMP: 12/26/19 05:00 12/26/19 05:00 ABG, PT/INR, D-dimer: ABG ABG pH 7.432 pH Units (7.350-7.450) 12/20/19 12:15 ABG pCO2 36.0 mm Hg 12/20/19 12:15 ABG pO2 150.8 mm Hg (80.0-90.0) H 12/20/19 12:15 ABG O2 Saturation 98.9 % (95.0-99.0) 12/20/19 12:15 PT/INR, D-dimer PT 15.3 Sec. (12.2-14.9) H 12/19/19 09:14 INR 1.19 (0.87-1.13) H 12/19/19 09:14 Abnormal lab findings: Abnormal Labs 12/19/19 12/19/19 12/19/19 09:10 09:14 09:14 WBC 12.1 H RBC Hgb 10.0 L Hct 32.3 L MCV 81 L MCH 25 L MCHC 31 L RDW 17.7 H Lymph % (Auto) [place]cd[place] % (Auto) Mcdonough # 0.9 H Seg Neutrophils % 78.2 H Seg Neutrophils # 9.5 H PT 15.3 H INR 1.19 H ABG pH ABG pO2 ABG HCO3 ABG O2 Saturation ABG Base Excess ABG Hemoglobin Sodium Potassium Chloride Carbon Dioxide BUN Creatinine Glucose POC Glucose Lactic Acid Calcium Albumin Vancomycin Trough Crossmatch See Detail 12/19/19 12/19/19 12/19/19 09:14 09:14 10:05 WBC RBC Hgb Hct MCV MCH MCHC RDW Lymph % (Auto) [place] % (Auto) Mcd[place]ough # Seg Neutrophils % Seg Neutrophils # PT INR ABG pH ABG pO2 ABG HCO3 ABG O2 Saturation ABG Base Excess ABG Hemoglobin Sodium Potassium Chloride Carbon Dioxide 20 L BUN 55 H Creatinine Glucose 222 H POC Glucose 212 H Lactic Acid 3.10 H* Calcium Albumin 3.4 L Vancomycin Trough Crossmatch 12/19/19 12/19/19 12/19/19 10:30 12:30 15:55 WBC RBC Hgb Hct MCV MCH MCHC RDW Lymph % (Auto) [place] % (Auto) Mcd[place]ough # Seg Neutrophils % Seg Neutrophils # PT INR ABG pH 7.277 L ABG pO2 195.1 H ABG HCO3 19.2 L ABG O2 Saturation 99.2 H ABG Base Excess -7.1 L ABG Hemoglobin 9.4 L Sodium Potassium Chloride Carbon Dioxide BUN Creatinine Glucose POC Glucose Lactic Acid 2.80 H* 5.10 H* Calcium Albumin Vancomycin Trough Crossmatch 12/20/19 12/20/19 12/20/19 04:20 04:59 04:59 WBC 11.3 H RBC 3.21 L Hgb 8.0 L Hct 26.0 L D MCV 81 L MCH 25 L MCHC 31 L RDW 17.7 H Lymph % (Auto) 12.2 L [place] % (Auto) 11.1 H Mcd[place]ough # 1.2 H Seg Neutrophils % 76.5 H Seg Neutrophils # 8.6 H PT INR ABG pH ABG pO2 139.7 H ABG HCO3 ABG O2 Saturation ABG Base Excess ABG Hemoglobin 9.2 L Sodium 147 H Potassium Chloride 113.7 H Carbon Dioxide BUN 29 H Creatinine 0.6 L D Glucose 172 H POC Glucose Lactic Acid Calcium Albumin Vancomycin Trough Crossmatch 12/20/19 12/21/19 12/21/19 12:15 04:38 04:38 WBC RBC 2.55 L Hgb 6.5 L Hct 20.9 L MCV 82 L MCH 26 L MCHC 31 L RDW 18.1 H Lymph % (Auto) [place] % (Auto) 10.8 H Mcd[place]ough # 0.9 H Seg Neutrophils % 70.8 H Seg Neutrophils # PT INR ABG pH ABG pO2 150.8 H ABG HCO3 ABG O2 Saturation ABG Base Excess ABG Hemoglobin 5.5 L Sodium 149 H Potassium 3.5 L Chloride 114.9 H Carbon Dioxide BUN 21 H Creatinine 0.5 L Glucose 114 H POC Glucose Lactic Acid Calcium Albumin Vancomycin Trough Crossmatch 12/21/19 12/22/19 12/22/19 23:02 10:34 10:34 WBC RBC 3.24 L Hgb 7.7 L 8.4 L Hct 24.8 L 27.0 L MCV 83 L MCH 26 L MCHC 31 L RDW 17.7 H Lymph % (Auto) [place]cd[place] % (Auto) Mcd[place]ough # Seg Neutrophils % Seg Neutrophils # PT INR ABG pH ABG pO2 ABG HCO3 ABG O2 Saturation ABG Base Excess ABG Hemoglobin Sodium 147 H Potassium Chloride 112.3 H Carbon Dioxide 20 L BUN Creatinine 0.5 L Glucose 102 H POC Glucose Lactic Acid Calcium Albumin Vancomycin Trough Crossmatch 12/22/19 12/22/19 12/22/19 11:58 18:15 23:47 WBC RBC Hgb Hct MCV MCH MCHC RDW Lymph % (Auto) [place]cd[place] % (Auto) Mcd[place]ough # Seg Neutrophils % Seg Neutrophils # PT INR ABG pH ABG pO2 ABG HCO3 ABG O2 Saturation ABG Base Excess ABG Hemoglobin Sodium Potassium Chloride Carbon Dioxide BUN Creatinine Glucose POC Glucose 126 H 114 H 121 H Lactic Acid Calcium Albumin Vancomycin Trough Crossmatch 12/23/19 12/23/19 12/23/19 05:46 06:38 06:38 WBC RBC 2.94 L Hgb 7.6 L Hct 23.8 L MCV 81 L MCH 26 L MCHC RDW 17.0 H Lymph % (Auto) [place] % (Auto) Mcd[place]ough # Seg Neutrophils % Seg Neutrophils # PT INR ABG pH ABG pO2 ABG HCO3 ABG O2 Saturation ABG Base Excess ABG Hemoglobin Sodium Potassium 3.3 L Chloride 107.5 H Carbon Dioxide BUN Creatinine 0.4 L Glucose 132 H POC Glucose 124 H Lactic Acid Calcium 8.1 L Albumin Vancomycin Trough Crossmatch 12/23/19 12/23/19 12/24/19 15:54 20:50 00:06 WBC RBC Hgb Hct MCV MCH MCHC RDW Lymph % (Auto) [place]cd[place] % (Auto) Mcd[place]ough # Seg Neutrophils % Seg Neutrophils # PT INR ABG pH ABG pO2 ABG HCO3 ABG O2 Saturation ABG Base Excess ABG Hemoglobin Sodium Potassium Chloride Carbon Dioxide BUN Creatinine Glucose POC Glucose 150 H 135 H Lactic Acid Calcium Albumin Vancomycin Trough 21.4 H Crossmatch 12/24/19 12/24/19 12/25/19 05:34 18:28 05:31 WBC RBC Hgb Hct MCV MCH MCHC RDW Lymph % (Auto) [place]cd[place]ough % (Auto) Mcdonough # Seg Neutrophils % Seg Neutrophils # PT INR ABG pH ABG pO2 ABG HCO3 ABG O2 Saturation ABG Base Excess ABG Hemoglobin Sodium Potassium Chloride Carbon Dioxide BUN Creatinine Glucose POC Glucose 179 H 156 H 179 H Lactic Acid Calcium Albumin Vancomycin Trough Crossmatch Allied health notes reviewed: nursing
--- NOTE | 2019-12-25 15:42 | Progress Note ---
Assessment and Plan Assessment and plan: Acute upper GI bleed. Patient underwent endoscopy which revealed esophagitis in the lower third of the esophagus. There was a cratered, clean based ulcer in the incisura of the stomach. No high risk bleeding stigmata was seen. Continue to monitor H&H and transfuse for hemoglobin less than 7. Continue IV PPI. Acute hypoxic respiratory failure. was intubated, now extubated, Pulmonary following. Diabetes mellitus type 2. Continue Accu-Cheks and sliding scale insulin. Hypertension. Patient actually hypotensive given the bleed. Metabolic acidosis/lactic acidosis. Etiology likely secondary to hypotension/hypoperfusion from GI bleed. Patient with no obvious signs of infection. SIRS. Etiology secondary to above. Check blood cultures, UA and urine culture. 12/21/19 patient with acute resp failure. was intubated, now extubated. Transfer to medical floor 12/22/19 Got a text, followed by Call from Shanika, head of Risk management. She states Patient has been on contact and droplet precaution by error. Nurse Lamar caruso had mentioned to me 12/20 that patient on isolation because he was in a room with patient with Covid-19 positive. I discussed with Shanika, retail tire sales manager. She told me today that this is an error, patient was not in same room with Covid positive patient, but a different room. Will dc isolation., Transfer to another floor. 12/23/19. Got a call from Dr. Laws( aka Dr. Crawley) yesterday that patient should be on contact and droplet isolation because he was in room in ED with patient that tested to be covid -19. He states it happened in one of rooms in which patient only by curtains. I discussed with Dr. Nixon. Will fill survey and sent to [facility] 12/24/19 No more bleeding. Covid 19 testing survey done yesterday 12/25/19 Awaiting response fro Covid testing survey History Interval history: Patient initially presented with GI bleed now to r/o Covid infection Hospitalist Physical - Physical exam Narrative exam: GEN: Not in acute distress, lying in bed HEENT: Normocephalic, atraumatic, Neck: supple, No JVD Lungs: clear, no crackles, heart;S1 and S2 reg, tachy, no murmurs, rubs or gallop Abd:soft, non tender, non distended, normal bowel sounds, PEG tube Ext: No edema, no clubbing, no cyanosis, Neuro: Awake,alert, aphasia,prev stroke - Constitutional Vitals: Temp Pulse Resp BP Pulse Ox 98.7 F 84 20 151/86 96 12/25/19 05:18 12/25/19 05:20 12/25/19 05:18 12/25/19 09:52 12/25/19 05:20 General appearance: Present: other (Orally intubatedon mechanical ventilation) Results - Labs CBC & Chem 7: 12/26/19 05:00 12/26/19 05:00 Labs: Laboratory Last Values WBC 6.8 K/mm3 (4.5-11.0) 12/23/19 06:38 RBC 2.94 M/mm3 (3.65-5.03) L 12/23/19 06:38 Hgb 7.6 gm/dl (11.8-15.2) L 12/23/19 06:38 Hct 23.8 % (35.5-45.6) L 12/23/19 06:38 MCV 81 fl (84-94) L 12/23/19 06:38 MCH 26 pg (28-32) L 12/23/19 06:38 MCHC 32 % (32-34) 12/23/19 06:38 RDW 17.0 % (13.2-15.2) H 12/23/19 06:38 Plt Count 234 K/mm3 (140-440) 12/23/19 06:38 Lymph % (Auto) 16.7 % (13.4-35.0) 12/21/19 04:38 Rhea % (Auto) 10.8 % (0.0-7.3) H 12/21/19 04:38 Eos % (Auto) 1.2 % (0.0-4.3) 12/21/19 04:38 Baso % (Auto) 0.5 % (0.0-1.8) 12/21/19 04:38 Lymph # 1.4 K/mm3 (1.2-5.4) 12/21/19 04:38 Rhea # 0.9 K/mm3 (0.0-0.8) H 12/21/19 04:38 Eos # 0.1 K/mm3 (0.0-0.4) 12/21/19 04:38 Baso # 0.0 K/mm3 (0.0-0.1) 12/21/19 04:38 Seg Neutrophils % 70.8 % (40.0-70.0) H 12/21/19 04:38 Seg Neutrophils # 6.0 K/mm3 (1.8-7.7) 12/21/19 04:38 PT 15.3 Sec. (12.2-14.9) H 12/19/19 09:14 INR 1.19 (0.87-1.13) H 12/19/19 09:14 APTT 26.4 Sec. (24.2-36.6) 12/19/19 09:14 ABG pH 7.432 pH Units (7.350-7.450) 12/20/19 12:15 ABG pCO2 36.0 mm Hg 12/20/19 12:15 ABG pO2 150.8 mm Hg (80.0-90.0) H 12/20/19 12:15 ABG HCO3 23.5 mmol/L (20.0-26.0) 12/20/19 12:15 ABG O2 Saturation 98.9 % (95.0-99.0) 12/20/19 12:15 ABG O2 Content 7.8 (0.0-44) 12/20/19 12:15 ABG Base Excess -0.8 mmol/L (-2.0-3.0) 12/20/19 12:15 ABG Hemoglobin 5.5 gm/dl (14.0-18.0) L 12/20/19 12:15 ABG Carboxyhemoglobin 1.9 % (0.0-5.0) 12/20/19 12:15 ABG Methemoglobin 0.5 % (0.0-1.5) 12/20/19 12:15 Oxyhemoglobin 96.5 % (95.0-99.0) 12/20/19 12:15 FiO2 35 % 12/20/19 12:15 Sodium 143 mmol/L (137-145) 12/23/19 06:38 Potassium 3.3 mmol/L (3.6-5.0) L 12/23/19 06:38 Chloride 107.5 mmol/L (98-107) H 12/23/19 06:38 Carbon Dioxide 22 mmol/L (22-30) 12/23/19 06:38 Anion Gap 17 mmol/L 12/23/19 06:38 BUN 11 mg/dL (9-20) 12/23/19 06:38 Creatinine 0.4 mg/dL (0.8-1.5) L 12/23/19 06:38 Estimated GFR > 60 ml/min 12/23/19 06:38 BUN/Creatinine Ratio 28 % 12/23/19 06:38 Glucose 132 mg/dL (75-100) H 12/23/19 06:38 POC Glucose 179 (70-105) H 12/25/19 05:31 Lactic Acid 5.10 mmol/L (0.7-2.0) H* 12/19/19 15:55 Calcium 8.1 mg/dL (8.4-10.2) L 12/23/19 06:38 Magnesium 2.00 mg/dL (1.7-2.3) 12/19/19 09:14 Total Bilirubin 0.20 mg/dL (0.1-1.2) 12/19/19 09:14 AST 13 units/L (5-40) 12/19/19 09:14 ALT 11 units/L (7-56) 12/19/19 09:14 Alkaline Phosphatase 85 units/L (35-129) 12/19/19 09:14 Ammonia 35.0 umol/L (25-60) 12/19/19 09:14 Total Protein 6.6 g/dL (6.3-8.2) 12/19/19 09:14 Albumin 3.4 g/dL (3.9-5) L 12/19/19 09:14 Albumin/Globulin Ratio 1.1 % 12/19/19 09:14 Lipase 49 units/L (13-60) 12/19/19 09:14 Urine Color Yellow (Yellow) 12/19/19 10:02 Urine Turbidity Slightly-cloudy (Clear) 12/19/19 10:02 Urine pH 5.0 (5.0-7.0) 12/19/19 10:02 Ur Specific Donnelly 1.024 (1.003-1.030) 12/19/19 10:02 Urine Protein 30 mg/dl mg/dL (Negative) 12/19/19 10:02 Urine Glucose (UA) 50 mg/dL (Negative) 12/19/19 10:02 Urine Ketones Neg mg/dL (Negative) 12/19/19 10:02 Urine Blood Neg (Negative) 12/19/19 10:02 Urine Nitrite Neg (Negative) 12/19/19 10:02 Urine Bilirubin Neg (Negative) 12/19/19 10:02 Urine Urobilinogen < 2.0 mg/dL (<2.0) 12/19/19 10:02 Ur Leukocyte Esterase Neg (Negative) 12/19/19 10:02 Urine WBC (Auto) 2.0 /HPF (0.0-6.0) 12/19/19 10:02 Urine RBC (Auto) 1.0 /HPF (0.0-6.0) 12/19/19 10:02 U Epithel Cells (Auto) < 1.0 /HPF (0-13.0) 12/19/19 10:02 Hyaline Casts 11 /LPF 12/19/19 10:02 Urine Mucus 2+ /HPF 12/19/19 10:02 Urine Sperm Few /HPF (MINI LAB OPERATOR) 12/19/19 10:02 Vancomycin Trough 21.4 ug/mL (5.0-20.0) H 12/23/19 20:50 Random Vancomycin 7.5 ug/mL (0-40.0) 12/21/19 23:02 Blood Type O POSITIVE 12/19/19 09:10 Antibody Screen Negative 12/19/19 09:10 Crossmatch See Detail 12/19/19 09:10 Microbiology: Microbiology 12/23/19 00:41 Peripheral/Venous Blood Culture - Preliminary NO GROWTH AFTER 48 HOURS 12/22/19 23:56 Peripheral/Venous Blood Culture - Preliminary NO GROWTH AFTER 48 HOURS - Diagnostic Impressions Diagnostic Impressions: Echocardiogram 12/22/19 17:57 Transthoracic Echocardiogram Indication: R/O Endocarditis BP: 133/79 HR: 81 Conclusions *Global left ventricular systolic function is normal. *Mild concentric left ventricular hypertrophy is observed. *The estimated ejection fraction is 50-55%. *Abnormal left ventricular diastolic filling is observed, consistent with impaired relaxation. *The right ventricular global systolic function is mildly reduced. *There is no evidence of aortic regurgitation. *There is trace of mitral regurgitation. *There is trace tricuspid regurgitation. *The right ventricular systolic pressure is calculated at 38 mmHg. *There is trace pulmonic regurgitation. Findings Left Ventricle: The left ventricular chamber size is normal. Mild concentric left ventricular hypertrophy is observed. Global left ventricular systolic function is normal. The estimated ejection fraction is 50-55%. Abnormal left ventricular diastolic filling is observed, consistent with impaired relaxation. Left Atrium: The left atrial chamber size is normal. Right Ventricle: The right ventricular cavity size is normal. The right ventricular global systolic function is mildly reduced. Right Atrium: The right atrial cavity size is normal. Aortic Valve: The aortic valve is trileaflet. There is no evidence of aortic regurgitation. Mitral Valve: The mitral valve leaflets are mildly thickened. There is trace of mitral regurgitation. Tricuspid Valve: The tricuspid valve leaflets are normal. There is trace tricuspid regurgitation. The right ventricular systolic pressure is calculated at 38 mmHg. Pulmonic Valve: The pulmonic valve appears normal. There is trace pulmonic regurgitation. Pericardium: There is no pericardial effusion. Aorta: There is no dilatation of the ascending aorta. There is no dilatation of the aortic root. Venous: The inferior vena cava appears normal in size. There is a greater than 50% respiratory change in the inferior vena cava dimension. Measurements Chambers 2D Name Value Normal Range IVSd (2D) 1.33 cm (0.6 - 1.1) LVPWd (2D) 1.29 cm (0.6 - 1.1) LVIDd (2D) 3.1 cm (3.7 - 5.6) LVIDs (2D) 2.26 cm (2 - 3.8) LV FS (2D) 27.25 % - EF Teichholz (2D) 54.5 % - Ao root diameter (2D) 2.84 cm (2 - 3.7) Volumes/Mass Name Value Normal Range LA ESV SP 4CH (A/L) 20.15 ml - LA ESV SP 2CH (A/L) 33.14 ml - LA ESV BP (A/L) 28.63 ml - LA ESV BP (A/L) index 15.39 ml/m2 - LA ESV SP 4CH (MOD) 18.4 ml - LA ESV SP 2CH (MOD) 29.82 ml - LA ESV BP (MOD) 25.89 ml - LA ESV BP (MOD) index 13.92 ml/m2 - Diastolic/Systolic Function Name Value Normal Range MV E-wave Vmax 1.1 m/sec - MV deceleration time 171.63 msec - MV A-wave Vmax 1.18 m/sec - MV E:A ratio 0.94 ratio - Aortic Valve Name Value Normal Range AV Vmax 1.37 m/sec - AV VTI 26.97 cm - AV peak gradient 7.5 mmHg - AV mean gradient 3.79 mmHg - LVOT diameter 2.03 cm - LVOT Vmax 1.09 m/sec - LVOT VTI 23.3 cm - LVOT peak gradient 4.76 mmHg - LVOT mean gradient 2.45 mmHg - SV LVOT 75.15 ml - DARINEL (continuity Vmax) 2.57 cm2 - DARINEL (continuity VTI) 2.79 cm2 - Tricuspid Valve Name Value Normal Range TR Vmax 2.96 m/sec - TR peak gradient 35 mmHg - RAP 3 mmHg - RVSP 38 mmHg - IVC diameter 1.78 cm (1.2 - 2.3) Pulmonic Valve/Qp:Qs Name Value Normal Range PV Vmax 0.96 m/sec - PV peak gradient 3.68 mmHg - AL end-diastolic Vmax 1.42 m/sec - PV acceleration time 64.7 msec - NDUM: 12/24/19 1217 Amended Report Transthoracic Echocardiogram Indication: R/O Endocarditis BP: 133/79 HR: 81 Conclusions *Global left ventricular systolic function is normal. *Mild concentric left ventricular hypertrophy is observed. *The estimated ejection fraction is 50-55%. *Abnormal left ventricular diastolic filling is observed, consistent with impaired relaxation. *The right ventricular global systolic function is mildly reduced. *There is no evidence of aortic regurgitation. *There is trace of mitral regurgitation. *There is trace tricuspid regurgitation. *The right ventricular systolic pressure is calculated at 38 mmHg. *There is trace pulmonic regurgitation. *No obvious endocardtis noted on mitral and aortic and tricuspid valve, if clinically indicated suggest JUAN Findings Left Ventricle: The left ventricular chamber size is normal. Mild concentric left ventricular hypertrophy is observed. Global left ventricular systolic function is normal. The estimated ejection fraction is 50-55%. Abnormal left ventricular diastolic filling is observed, consistent with impaired relaxation. Left Atrium: The left atrial chamber size is normal. Right Ventricle: The right ventricular cavity size is normal. The right ventricular global systolic function is mildly reduced. Right Atrium: The right atrial cavity size is normal. Aortic Valve: The aortic valve is trileaflet. There is no evidence of aortic regurgitation. Mitral Valve: The mitral valve leaflets are mildly thickened. There is trace of mitral regurgitation. Tricuspid Valve: The tricuspid valve leaflets are normal. There is trace tricuspid regurgitation. The right ventricular systolic pressure is calculated at 38 mmHg. Pulmonic Valve: The pulmonic valve appears normal. There is trace pulmonic regurgitation. Pericardium: There is no pericardial effusion. Aorta: There is no dilatation of the ascending aorta. There is no dilatation of the aortic root. Venous: The inferior vena cava appears normal in size. There is a greater than 50% respiratory change in the inferior vena cava dimension. Measurements Chambers 2D Name Value Normal Range IVSd (2D) 1.33 cm (0.6 - 1.1) LVPWd (2D) 1.29 cm (0.6 - 1.1) LVIDd (2D) 3.1 cm (3.7 - 5.6) LVIDs (2D) 2.26 cm (2 - 3.8) LV FS (2D) 27.25 % - EF Teichholz (2D) 54.5 % - Ao root diameter (2D) 2.84 cm (2 - 3.7) Volumes/Mass Name Value Normal Range LA ESV SP 4CH (A/L) 20.15 ml - LA ESV SP 2CH (A/L) 33.14 ml - LA ESV BP (A/L) 28.63 ml - LA ESV BP (A/L) index 15.39 ml/m2 - LA ESV SP 4CH (MOD) 18.4 ml - LA ESV SP 2CH (MOD) 29.82 ml - LA ESV BP (MOD) 25.89 ml - LA ESV BP (MOD) index 13.92 ml/m2 - Diastolic/Systolic Function Name Value Normal Range MV E-wave Vmax 1.1 m/sec - MV deceleration time 171.63 msec - MV A-wave Vmax 1.18 m/sec - MV E:A ratio 0.94 ratio - Aortic Valve Name Value Normal Range AV Vmax 1.37 m/sec - AV VTI 26.97 cm - AV peak gradient 7.5 mmHg - AV mean gradient 3.79 mmHg - LVOT diameter 2.03 cm - LVOT Vmax 1.09 m/sec - LVOT VTI 23.3 cm - LVOT peak gradient 4.76 mmHg - LVOT mean gradient 2.45 mmHg - SV LVOT 75.15 ml - DARINEL (continuity Vmax) 2.57 cm2 - DARINEL (continuity VTI) 2.79 cm2 - Tricuspid Valve Name Value Normal Range TR Vmax 2.96 m/sec - TR peak gradient 35 mmHg - RAP 3 mmHg - RVSP 38 mmHg - IVC diameter 1.78 cm (1.2 - 2.3) Pulmonic Valve/Qp:Qs Name Value Normal Range PV Vmax 0.96 m/sec - PV peak gradient 3.68 mmHg - AL end-diastolic Vmax 1.42 m/sec - PV acceleration time 64.7 msec - Hurtado/IV: Voiding Method Indwelling Catheter IV Catheter Type [Left Forearm INT / Saline Lock ] IV Catheter Type [Left Triple Lumen Cath Subclavian] IV Catheter Type [Right INT / Saline Lock Antecubital] Active Medications - Current Medications Current Medications: Generic Name Dose Route Start Last Admin Trade Name Freq PRN Reason Stop Dose Admin Acetaminophen 650 mg 12/19/19 12:15 12/24/19 22:31 Tylenol PO 650 mg Q4H PRN Administration Fever >101 Lipase/Protease/Amylase 1 each 12/22/19 10:[address] 10,500 Unit FEEDTUBE PRN PRN For Clogged Feeding Tube Ascorbic Acid 500 mg 12/19/19 13:00 12/25/19 09:52 Vitamin C PO 500 mg Q12HR NIKOLAS Administration Atorvastatin Calcium 20 mg 12/19/19 22:00 12/24/19 22:10 Lipitor PO 20 mg QHS NIKOLAS Administration Bismuth Subsalicylate 524 mg 12/19/19 12:15 Pepto Bismol PO Q6H PRN Diarrhea Citalopram Hydrobromide 30 mg 12/19/19 14:00 12/25/19 12:29 Celexa PO 30 mg DAILY NIKOLAS Administration Ferrous Sulfate 308 mg 12/20/19 22:00 12/25/19 12:28 Ferrous Sulfate FEEDTUBE 308 mg BID NIKOALS Administration Hydrophilic Ointment 1 applic 12/19/19 10:35 Vaseline Lip Therapy TP Q2HR PRN Dry Lips Dextrose 1,000 mls @ 75 mls/hr 12/21/19 17:00 12/25/19 06:17 D5w IV 75 mls/hr DIRECT NIKOLAS Administration Levofloxacin/Dextrose 750 mg in 150 mls @ 100 mls/hr 12/23/19 10:00 12/25/19 09:51 Levaquin 750mg/150ml IV 12/27/19 11:29 100 mls/hr Q24HR NIKOLAS Administration Vancomycin HCl 1 gm in 250 mls @ 167.007 mls/hr 12/24/19 22:00 12/25/19 09:59 Vancomycin/Ns 1 Gm/250 Ml IV 167 mls/hr Q12HR NIKOLAS Administration Lansoprazole 30 mg 12/23/19 10:00 12/25/19 09:51 Prevacid Solutab FEEDTUBE 30 mg BID NIKOLAS Administration Latanoprost 1 drops 12/19/19 22:00 12/24/19 22:59 Latanoprost 0.005% OD 1 drops QHS NIKOLAS Administration Lisinopril 10 mg 12/19/19 13:00 12/25/19 09:52 Zestril PO 10 mg QDAY NIKOLAS Administration Magnesium Oxide 400 mg 12/20/19 10:00 12/25/19 09:52 Mag-Ox PO 400 mg QDAY NIKOLAS Administration Multi-Ingred Cream/Lotion/Oil/Oint 1 applic 12/19/19 10:35 Artificial Tears Ophth Oint OU Q4HR PRN Dry Eye(s) Quetiapine Fumarate 50 mg 12/19/19 14:00 12/25/19 15:38 Seroquel PO 50 mg TID NIKOLAS Administration Simple Syrup 15 ml 12/22/19 09:51 Simple Syrup FEEDTUBE PRN PRN Hypoglycemia Simple Syrup 30 ml 12/22/19 10:05 Simple Syrup FEEDTUBE PRN PRN Hypoglycemia Sodium Bicarbonate 325 mg 12/22/19 10:05 Sodium Bicarbonate FEEDTUBE PRN PRN For Clogged Feeding Tube Sodium Chloride 10 ml 12/19/19 22:00 12/24/19 22:59 Sodium Chloride Flush Syringe 10 Ml IV 10 ml BID NIKOLAS Administration Sodium Chloride 10 ml 12/19/19 12:13 Sodium Chloride Flush Syringe 10 Ml IV PRN PRN LINE FLUSH Thiamine HCl 100 mg 12/20/19 10:00 12/25/19 09:52 Vitamin B-1 PO 100 mg DAILY NIKOLAS Administration Timolol Maleate 1 drops 12/19/19 22:00 12/25/19 12:06 Timoptic OU 1 drops BID NIKOLAS Administration Nutrition/Malnutrition Assess - Dietary Evaluation Nutrition/Malnutrition Findings: Nutrition Notes Start: 12/20/19 08:53 Freq: Status: Active Protocol: Document 12/24/19 13:33 LM (Rec: 12/24/19 13:38 LM [id number]) Nutrition Notes Initial or Follow up Reassessment Current Diagnosis Acute Kidney Injury,COPD, Diabetes,Hypertension, Respiratory Failure,Stroke Other Pertinent Diagnosis GI bleed, encephalopathy, debility Current Diet Glucerna 1.2 at 65ml/hr Labs/Tests POC glu 179 Pertinent Medications Reviewed Height 5 ft 6 in Weight 76.3 kg [place] Body Weight (kg) 64.54 BMI 27.1 Weight Status Overweight Subjective/Other Information Glucerna running at goal and tolerating per RN. Percent of energy/protein needs met: 100%/100% Burn Absent Trauma Absent Current % PO Negligible Minimum of two criteria No physical signs of malnutrition #1 Nutrition Diagnosis Inadequate oral intake Diagnosis Progress(for reassessment Continues documentation) Is patient on ventilator? No Is Patient Ambulatory and/or Out of Bed No REE-([facility]-confined to bed) 0423.067 Calculation Used for Recommendations [facility] Additional Notes Protein: 60-90g (0.8-1.2g/kg) Fluid: 1 ml/kcal Nutrition Intervention Change Diet Order: TF Nutrition Support: Glucerna 1.2 at 65 ml/hr Flush 200 ml q4h for hypernatremia Flush 100 ml q4h once resolved Kcal 1,872 Protein (gm) 94 Fluid (mL) 1,256 Goal #1 TF tolerance Goal #2 Meet at least 75% of energy and protein needs via TF Anticipated Discharge Needs: TF Follow-Up By: 12/30/19 Additional Comments F/U for TF tolerance
[2019-12-25] MEDS: LATANOPROST 0.005% OPHTH SOLN 2.5 ML OD SCH (21:04)
[2019-12-26 05:31] LABS: Hematocrit 22.9 % (35.5-45.6); Hemoglobin 7.3 gm/dl (11.8-15.2); Mean Corpuscular HGB Conc 32 % (32-34); Mean Corpuscular Volume 79 fl (84-94); Platelet Count 256 K/mm3 (140-440); Red Blood Count 2.91 M/mm3 (3.65-5.03); Red Cell Distribution Width 17.7 % (13.2-15.2)
[2019-12-26 06:01] LABS: BUN/Creatinine Ratio 14; Blood Urea Nitrogen 7 mg/dL (9-20); Hemolysis Index 22
--- NOTE | 2019-12-26 10:32 | Progress Note ---
Assessment and Plan Acute hypoxemic respiratory failure s/p MVS Acute upper GI bleed s/p EGD Oropharyngeal dysphagia s/p PEG Severe Sepsis with Shock Strep anginosus bacteremia: Diabetes mellitus type 2 Hypertension Metabolic acidosis/lactic acidosis Discontinue left subclavian CVC, pace peripheral IVs/midline Complete antibiotics therapy- vancomycin/Levofloxaic- ID following Continue anti-infectives per ID recommendations for bacteremia / sepsis to c omplete course. Discontinue Hurtado catheter, infection risk Continue all supportive care as outlined Continue aspiration precautions Enteric nutrition - COVID-19 testing pending re: ER exposure -once results are available, discharge to his facility if COVID-19 negative - supplemental oxygen as needed to keep O2 sat's > 90% - continue contact and droplet isolation and follow clinically due to COVID-19 exposure - prn bronchodilators with pulmonary hygiene per RT - mobility protocol, off loading, and skin assessment per protocol for pressure ulcer prevention - continue accuchecks with glycemic control per SSI for target BG < 180 mg/dl - GI & VTE prophylaxis with PPI & SCD's - Flu & pneumovax addressed per protocol - continue other care per attending / other consultants Subjective Date of service: 12/26/19 Principal diagnosis: GI bleed, respiratory failure Interval history: Patient is seen today for: Acute upper GI bleed; Severe Sepsis with Shock; Acute hypoxemic respiratory failure s/p MVS; DM II; HTN; Metabolic acidosis/lactic acidosis Seen and examined at bedside; 24hour events reviewed; nursing and respiratory care staff consulted; no adverse overnight events reported to me; resting peacefully in bed; no gross G.I. bleeding; no emesis or overt aspiration, non- verbal Supplemental oxygen at 3L/min Objective Vital Signs - 12hr 12/26/19 12/26/19 12/26/19 04:04 05:03 08:55 Temperature 98.3 F Pulse Rate 93 H 90 Respiratory 16 Rate Blood Pressure 115/73 102/62 O2 Sat by Pulse 97 Oximetry Constitutional: no acute distress, other (non verbal on 3L of oxygen via NC) Eyes: non-icteric ENT: oropharynx moist, other (Left subclavain CVC) Neck: supple, no lymphadenopathy, no JVD Effort: normal Ascultation: Bilateral: diminished breath sounds, rhonchi Percussion: Bilateral: not dull Cardiovascular: regular rate and rhythm, other (S) Gastrointestinal: normoactive bowel sounds, soft, non-tender, non-distended, other (Hurtado catheter in place) Integumentary: rash Extremities: no cyanosis, no edema, pulses normal Neurologic: pupils equal and round, other (mumbles sometimes appropriate replies to questions) Psychiatric: other (affect flat) CBC and BMP: 12/27/19 04:32 12/27/19 04:32 ABG, PT/INR, D-dimer: ABG ABG pH 7.432 pH Units (7.350-7.450) 12/20/19 12:15 ABG pCO2 36.0 mm Hg 12/20/19 12:15 ABG pO2 150.8 mm Hg (80.0-90.0) H 12/20/19 12:15 ABG O2 Saturation 98.9 % (95.0-99.0) 12/20/19 12:15 PT/INR, D-dimer PT 15.3 Sec. (12.2-14.9) H 12/19/19 09:14 INR 1.19 (0.87-1.13) H 12/19/19 09:14 Abnormal lab findings: Abnormal Labs 12/19/19 12/19/19 12/19/19 09:10 09:14 09:14 WBC 12.1 H RBC Hgb 10.0 L Hct 32.3 L MCV 81 L MCH 25 L MCHC 31 L RDW 17.7 H Lymph % (Auto) [place] % (Auto) [place] # 0.9 H Seg Neutrophils % 78.2 H Seg Neutrophils # 9.5 H PT 15.3 H INR 1.19 H ABG pH ABG pO2 ABG HCO3 ABG O2 Saturation ABG Base Excess ABG Hemoglobin Sodium Potassium Chloride Carbon Dioxide BUN Creatinine Glucose POC Glucose Lactic Acid Calcium Albumin Vancomycin Trough Crossmatch See Detail 12/19/19 12/19/19 12/19/19 09:14 09:14 10:05 WBC RBC Hgb Hct MCV MCH MCHC RDW Lymph % (Auto) [place] % (Auto) [place] # Seg Neutrophils % Seg Neutrophils # PT INR ABG pH ABG pO2 ABG HCO3 ABG O2 Saturation ABG Base Excess ABG Hemoglobin Sodium Potassium Chloride Carbon Dioxide 20 L BUN 55 H Creatinine Glucose 222 H POC Glucose 212 H Lactic Acid 3.10 H* Calcium Albumin 3.4 L Vancomycin Trough Crossmatch 12/19/19 12/19/19 12/19/19 10:30 12:30 15:55 WBC RBC Hgb Hct MCV MCH MCHC RDW Lymph % (Auto) [place] % (Auto) [place] # Seg Neutrophils % Seg Neutrophils # PT INR ABG pH 7.277 L ABG pO2 195.1 H ABG HCO3 19.2 L ABG O2 Saturation 99.2 H ABG Base Excess -7.1 L ABG Hemoglobin 9.4 L Sodium Potassium Chloride Carbon Dioxide BUN Creatinine Glucose POC Glucose Lactic Acid 2.80 H* 5.10 H* Calcium Albumin Vancomycin Trough Crossmatch 12/20/19 12/20/19 12/20/19 04:20 04:59 04:59 WBC 11.3 H RBC 3.21 L Hgb 8.0 L Hct 26.0 L D MCV 81 L MCH 25 L MCHC 31 L RDW 17.7 H Lymph % (Auto) 12.2 L [place] % (Auto) 11.1 H [place] # 1.2 H Seg Neutrophils % 76.5 H Seg Neutrophils # 8.6 H PT INR ABG pH ABG pO2 139.7 H ABG HCO3 ABG O2 Saturation ABG Base Excess ABG Hemoglobin 9.2 L Sodium 147 H Potassium Chloride 113.7 H Carbon Dioxide BUN 29 H Creatinine 0.6 L D Glucose 172 H POC Glucose Lactic Acid Calcium Albumin Vancomycin Trough Crossmatch 12/20/19 12/21/19 12/21/19 12:15 04:38 04:38 WBC RBC 2.55 L Hgb 6.5 L Hct 20.9 L MCV 82 L MCH 26 L MCHC 31 L RDW 18.1 H Lymph % (Auto) [place] % (Auto) 10.8 H [place] # 0.9 H Seg Neutrophils % 70.8 H Seg Neutrophils # PT INR ABG pH ABG pO2 150.8 H ABG HCO3 ABG O2 Saturation ABG Base Excess ABG Hemoglobin 5.5 L Sodium 149 H Potassium 3.5 L Chloride 114.9 H Carbon Dioxide BUN 21 H Creatinine 0.5 L Glucose 114 H POC Glucose Lactic Acid Calcium Albumin Vancomycin Trough Crossmatch 12/21/19 12/22/19 12/22/19 23:02 10:34 10:34 WBC RBC 3.24 L Hgb 7.7 L 8.4 L Hct 24.8 L 27.0 L MCV 83 L MCH 26 L MCHC 31 L RDW 17.7 H Lymph % (Auto) [place] % (Auto) [place] # Seg Neutrophils % Seg Neutrophils # PT INR ABG pH ABG pO2 ABG HCO3 ABG O2 Saturation ABG Base Excess ABG Hemoglobin Sodium 147 H Potassium Chloride 112.3 H Carbon Dioxide 20 L BUN Creatinine 0.5 L Glucose 102 H POC Glucose Lactic Acid Calcium Albumin Vancomycin Trough Crossmatch 12/22/19 12/22/19 12/22/19 11:58 18:15 23:47 WBC RBC Hgb Hct MCV MCH MCHC RDW Lymph % (Auto) [place] % (Auto) [place] # Seg Neutrophils % Seg Neutrophils # PT INR ABG pH ABG pO2 ABG HCO3 ABG O2 Saturation ABG Base Excess ABG Hemoglobin Sodium Potassium Chloride Carbon Dioxide BUN Creatinine Glucose POC Glucose 126 H 114 H 121 H Lactic Acid Calcium Albumin Vancomycin Trough Crossmatch 12/23/19 12/23/19 12/23/19 05:46 06:38 06:38 WBC RBC 2.94 L Hgb 7.6 L Hct 23.8 L MCV 81 L MCH 26 L MCHC RDW 17.0 H Lymph % (Auto) [place] % (Auto) [place] # Seg Neutrophils % Seg Neutrophils # PT INR ABG pH ABG pO2 ABG HCO3 ABG O2 Saturation ABG Base Excess ABG Hemoglobin Sodium Potassium 3.3 L Chloride 107.5 H Carbon Dioxide BUN Creatinine 0.4 L Glucose 132 H POC Glucose 124 H Lactic Acid Calcium 8.1 L Albumin Vancomycin Trough Crossmatch 12/23/19 12/23/19 12/24/19 15:54 20:50 00:06 WBC RBC Hgb Hct MCV MCH MCHC RDW Lymph % (Auto) [place] % (Auto) [place] # Seg Neutrophils % Seg Neutrophils # PT INR ABG pH ABG pO2 ABG HCO3 ABG O2 Saturation ABG Base Excess ABG Hemoglobin Sodium Potassium Chloride Carbon Dioxide BUN Creatinine Glucose POC Glucose 150 H 135 H Lactic Acid Calcium Albumin Vancomycin Trough 21.4 H Crossmatch 12/24/19 12/24/19 12/25/19 05:34 18:28 05:31 WBC RBC Hgb Hct MCV MCH MCHC RDW Lymph % (Auto) [place] % (Auto) [place] # Seg Neutrophils % Seg Neutrophils # PT INR ABG pH ABG pO2 ABG HCO3 ABG O2 Saturation ABG Base Excess ABG Hemoglobin Sodium Potassium Chloride Carbon Dioxide BUN Creatinine Glucose POC Glucose 179 H 156 H 179 H Lactic Acid Calcium Albumin Vancomycin Trough Crossmatch 12/25/19 12/26/19 12/26/19 17:50 05:00 05:00 WBC 16.9 H RBC 2.91 L Hgb 7.3 L Hct 22.9 L MCV 79 L MCH 25 L MCHC RDW 17.7 H Lymph % (Auto) [place] % (Auto) [place] # Seg Neutrophils % Seg Neutrophils # PT INR ABG pH ABG pO2 ABG HCO3 ABG O2 Saturation ABG Base Excess ABG Hemoglobin Sodium 135 L D Potassium 3.1 L Chloride 96.6 L Carbon Dioxide BUN 7 L Creatinine 0.5 L Glucose 180 H POC Glucose 211 H Lactic Acid Calcium 8.0 L Albumin Vancomycin Trough Crossmatch Allied health notes reviewed: nursing
[2019-12-26] MEDS: VANCOMYCIN/NS 1 GM/250 ML 1 GM/250 ML BAG IV SCH ×2 (10:40→22:27)
[2019-12-26] MEDS: FERROUS SULFATE 308 MG (62mg Elemental Iron) / 7 ML ELIXIR FEEDTUBE SCH ×2 (10:40→22:28)
[2019-12-26] MEDS: QUEtiapine 25 MG TAB PO SCH ×3 (10:41→22:27)
[2019-12-26] MEDS: POTASSIUM CHLORIDE 20 MEQ PACKET FEEDTUBE SCH ×2 (10:41→17:03)
[2019-12-26] MEDS: MAGNESIUM OXIDE 400 MG TAB PO SCH (10:41)
[2019-12-26] MEDS: LANSOPRAZOLE 30 MG SOLUTAB FEEDTUBE SCH ×2 (10:42→22:27)
[2019-12-26] MEDS: THIAMINE 100 MG TAB PO SCH (10:42)
[2019-12-26] MEDS: ASCORBIC ACID 500 MG TAB PO SCH ×2 (10:42→22:27)
[2019-12-26] MEDS: CITALOPRAM 10 MG TAB PO SCH (10:42)
[2019-12-26] MEDS: TIMOLOL 0.5% OPHTH SOLN 5 ML OU SCH ×2 (10:44→22:28)
[2019-12-26] MEDS: LISINOPRIL 10 MG TAB PO SCH (10:44)
[2019-12-26] MEDS ORDERED: NEOMY 3.5 MG/BACIT 400 UNITS/POLY B 5000 UNITS/GM OINT PACKET TP ONE (14:00)
--- NOTE | 2019-12-26 21:27 | Progress Note ---
Assessment and Plan Cultures: Blood culture 12/19/2019 group B strep 4/4 Sputum culture 12/19/2019 group B strep, Proteus mirabilis Blood culture 12/23/2019 no growth A/P:54-year-old man who is a resident of a retirement facility with a past medical history of COPD, diabetes, stroke, encephalopathy, debility admitted with UGIB, found to have GBS bacteremia #Strep anginosus bacteremia: Unclear source, possible lung. Continue vancomycin given documented penicillin allergy and patient is non-verbal so unable to discern severity of allergy. TTE no vegetation. #Tracheitis: patient without significant PNA on CXR #Diabetes: tight glycemic control for best outcomes. #Penicillin allergy: non-verbal, unable to properly assess. Recs: -Continue vancomycin dosed per pharmacy, goal trough 10-20 -continue levofloxacin 750 mg every 24 hours to complete 5 days of therapy. -Ordered repeat blood cultures -Discussed with pulm doc re: patient's exposure to COVID-19 patient in the ER. Patient remains asymptomatic, however his facility won't take him back without negative test. Agree with testing for now, though his risk of infection is extremely low. -anticipate to d/c on vancomycin 1 gm IV q 12 hour total 14 days till 01/06/2020. Keep vanco trough 10-20. Thank for the consult, will continue to follow Juli Fernandez MD Infectious Diseases Lead Database Administrator [facility] [phone] Subjective Date of service: 12/26/19 Principal diagnosis: GI bleed, respiratory failure Interval history: sleepy took seroquel still low grade fever Objective - Exam Narrative Exam: Gen: sleepy in RA Head, Ears, Nose: Normocephalic, atraumatic. Oral: Limited Cardiovascular: Limited evaluation due to PPE shortage Respiratory: prudencio crackles GI: Limited evaluation due to PPE shortage Musculoskeletal: Limited evaluation due to PPE shortage Neurological: Ssleepy - Constitutional Vitals: Vital Signs Temp Pulse Resp BP Pulse Ox 100.1 F H 94 H 18 131/80 98 12/26/19 21:00 12/26/19 21:00 12/26/19 21:00 12/26/19 21:00 12/26/19 21:00 Temperature -Last 24 Hours Temperature 100.1 F Temperature 98.6 F Temperature 98.8 F Temperature 98.3 F Temperature 99.3 F - Labs CBC & Chem 7: 12/26/19 05:00 12/26/19 05:00 Labs: Abnormal lab results 12/26/19 12/26/19 12/26/19 Range/Units 05:00 05:00 16:57 WBC 16.9 H (4.5-11.0) K/mm3 RBC 2.91 L (3.65-5.03) M/mm3 Hgb 7.3 L (11.8-15.2) gm/dl Hct 22.9 L (35.5-45.6) % MCV 79 L (84-94) fl MCH 25 L (28-32) pg RDW 17.7 H (13.2-15.2) % Sodium 135 L D (137-145) mmol/L Potassium 3.1 L (3.6-5.0) mmol/L Chloride 96.6 L (98-107) mmol/L BUN 7 L (9-20) mg/dL Creatinine 0.5 L (0.8-1.5) mg/dL Glucose 180 H (75-100) mg/dL POC Glucose 117 H (70-105) Calcium 8.0 L (8.4-10.2) mg/dL
[2019-12-26] MEDS: LATANOPROST 0.005% OPHTH SOLN 2.5 ML OD SCH (22:27)
[2019-12-27 05:06] LABS: Hematocrit 23.4 % (35.5-45.6); Hemoglobin 7.4 gm/dl (11.8-15.2); Mean Corpuscular HGB Conc 32 % (32-34); Mean Corpuscular Volume 79 fl (84-94); Platelet Count 266 K/mm3 (140-440); Red Blood Count 2.95 M/mm3 (3.65-5.03); Red Cell Distribution Width 18.4 % (13.2-15.2)
[2019-12-27 05:24] LABS: BUN/Creatinine Ratio 16; Blood Urea Nitrogen 11 mg/dL (9-20); Calcium 8.4 mg/dL (8.4-10.2); Hemolysis Index 5
[2019-12-27] MEDS: THIAMINE 100 MG TAB PO SCH (09:06)
[2019-12-27] MEDS: CITALOPRAM 10 MG TAB PO SCH (09:06)
[2019-12-27] MEDS: LANSOPRAZOLE 30 MG SOLUTAB FEEDTUBE SCH ×2 (09:06→22:07)
[2019-12-27] MEDS: FERROUS SULFATE 308 MG (62mg Elemental Iron) / 7 ML ELIXIR FEEDTUBE SCH ×2 (09:06→22:07)
[2019-12-27] MEDS: QUEtiapine 25 MG TAB PO SCH ×3 (09:06→22:07)
[2019-12-27] MEDS: MAGNESIUM OXIDE 400 MG TAB PO SCH (09:06)
[2019-12-27] MEDS: TIMOLOL 0.5% OPHTH SOLN 5 ML OU SCH ×2 (09:09→22:08)
[2019-12-27] MEDS: VANCOMYCIN/NS 1 GM/250 ML 1 GM/250 ML BAG IV SCH (09:09)
[2019-12-27] MEDS: ASCORBIC ACID 500 MG TAB PO SCH ×2 (09:09→22:07)
[2019-12-27] MEDS: LISINOPRIL 10 MG TAB PO SCH (09:10)
[2019-12-27] MEDS ORDERED: cefTRIAXone/NS 2 GM/100 ML 2 GM/100 ML BAG IV SCH ×2 (12:00→18:00)
--- NOTE | 2019-12-27 14:14 | Progress Note ---
Assessment and Plan Acute upper GI bleed Severe Sepsis witrh Shock Acute hypoxemic respiratory failure Diabetes mellitus type 2 Hypertension Metabolic acidosis/lactic acidosis - get VALANCE CUTTER evaluation as he i8s at risk for overt aspiration - no new issues otherwise; continue care as below - COVID-19 testing pending re: ER exposure - supplemental oxygen as needed to keep O2 sat's > 90% - continue contact and droplet isolation and follow clinically due to COVID-19 exposure - prn bronchodilators with pulmonary hygiene per RT - continue antiinfective's per ID recommendations for bacteremia / sepsis - PT/OT as tolerated - mobility protocols for pressure ulcer prophylaxis - continue accuchecks with glycemic control per SSI for target BG < 180 mg/dl - GI & VTE prophylaxis with PPI & SCD's - Flu & pneumovax addressed per protocol - continue other care per attending / other consultants ... re-evaluate in am & prn Subjective Date of service: 12/27/19 Principal diagnosis: Ac upper GI bleed; Shock; Ac hypoxemic resp failure; DM II; H/O HTN Interval history: Patient is seen today for: Acute upper GI bleed; Severe Sepsis witrh Shock; Acute hypoxemic respiratory failure; DM II; HTN; Metabolic acidosis/lactic acidosis Seen and examined at bedside; 24hour events reviewed; nursing and respiratory care staff consulted; no adverse overnight events reported to me; resting peacefully in bed; awaiting COVID result; VALANCE CUTTER evaluation ordered Objective Vital Signs - 12hr 12/27/19 12/27/19 12/27/19 05:01 06:04 09:10 Temperature 98.5 F 98.7 F Pulse Rate 93 H Respiratory 20 18 Rate Blood Pressure 112/73 118/76 120/76 O2 Sat by Pulse 98 Oximetry 12/27/19 12:20 Temperature 98.5 F Pulse Rate 90 Respiratory 19 Rate Blood Pressure 116/74 O2 Sat by Pulse 100 Oximetry Constitutional: no acute distress Eyes: non-icteric ENT: oropharynx moist Neck: supple, no lymphadenopathy, no JVD Effort: normal Ascultation: Bilateral: diminished breath sounds, rhonchi Percussion: Bilateral: not dull Cardiovascular: regular rate and rhythm Gastrointestinal: normoactive bowel sounds, soft, non-tender, non-distended Integumentary: rash Extremities: no cyanosis, no edema, pulses normal Neurologic: pupils equal and round, other (mumbles sometimes appropriate replies to questions) Psychiatric: other (affect flat) CBC and BMP: 12/27/19 04:32 12/27/19 04:32 ABG, PT/INR, D-dimer: ABG ABG pH 7.432 pH Units (7.350-7.450) 12/20/19 12:15 ABG pCO2 36.0 mm Hg 12/20/19 12:15 ABG pO2 150.8 mm Hg (80.0-90.0) H 12/20/19 12:15 ABG O2 Saturation 98.9 % (95.0-99.0) 12/20/19 12:15 PT/INR, D-dimer PT 15.3 Sec. (12.2-14.9) H 12/19/19 09:14 INR 1.19 (0.87-1.13) H 12/19/19 09:14 Abnormal lab findings: Abnormal Labs 12/19/19 12/19/19 12/19/19 09:10 09:14 09:14 WBC 12.1 H RBC Hgb 10.0 L Hct 32.3 L MCV 81 L MCH 25 L MCHC 31 L RDW 17.7 H Lymph % (Auto) [place] % (Auto) [place] # 0.9 H Seg Neutrophils % 78.2 H Seg Neutrophils # 9.5 H PT 15.3 H INR 1.19 H ABG pH ABG pO2 ABG HCO3 ABG O2 Saturation ABG Base Excess ABG Hemoglobin Sodium Potassium Chloride Carbon Dioxide BUN Creatinine Glucose POC Glucose Lactic Acid Calcium Albumin Vancomycin Trough Crossmatch See Detail 12/19/19 12/19/19 12/19/19 09:14 09:14 10:05 WBC RBC Hgb Hct MCV MCH MCHC RDW Lymph % (Auto) [place] % (Auto) [place] # Seg Neutrophils % Seg Neutrophils # PT INR ABG pH ABG pO2 ABG HCO3 ABG O2 Saturation ABG Base Excess ABG Hemoglobin Sodium Potassium Chloride Carbon Dioxide 20 L BUN 55 H Creatinine Glucose 222 H POC Glucose 212 H Lactic Acid 3.10 H* Calcium Albumin 3.4 L Vancomycin Trough Crossmatch 12/19/19 12/19/19 12/19/19 10:30 12:30 15:55 WBC RBC Hgb Hct MCV MCH MCHC RDW Lymph % (Auto) [place] % (Auto) [place] # Seg Neutrophils % Seg Neutrophils # PT INR ABG pH 7.277 L ABG pO2 195.1 H ABG HCO3 19.2 L ABG O2 Saturation 99.2 H ABG Base Excess -7.1 L ABG Hemoglobin 9.4 L Sodium Potassium Chloride Carbon Dioxide BUN Creatinine Glucose POC Glucose Lactic Acid 2.80 H* 5.10 H* Calcium Albumin Vancomycin Trough Crossmatch 12/20/19 12/20/19 12/20/19 04:20 04:59 04:59 WBC 11.3 H RBC 3.21 L Hgb 8.0 L Hct 26.0 L D MCV 81 L MCH 25 L MCHC 31 L RDW 17.7 H Lymph % (Auto) 12.[address] [place] % (Auto) 11.[address] [place] # 1.2 H Seg Neutrophils % 76.5 H Seg Neutrophils # 8.6 H PT INR ABG pH ABG pO2 139.7 H ABG HCO3 ABG O2 Saturation ABG Base Excess ABG Hemoglobin 9.2 L Sodium 147 H Potassium Chloride 113.7 H Carbon Dioxide BUN 29 H Creatinine 0.6 L D Glucose 172 H POC Glucose Lactic Acid Calcium Albumin Vancomycin Trough Crossmatch 12/20/19 12/21/19 12/21/19 12:15 04:38 04:38 WBC RBC 2.55 L Hgb 6.5 L Hct 20.9 L MCV 82 L MCH 26 L MCHC 31 L RDW 18.1 H Lymph % (Auto) [place] % (Auto) 10.[address] [place] # 0.9 H Seg Neutrophils % 70.8 H Seg Neutrophils # PT INR ABG pH ABG pO2 150.8 H ABG HCO3 ABG O2 Saturation ABG Base Excess ABG Hemoglobin 5.5 L Sodium 149 H Potassium 3.5 L Chloride 114.9 H Carbon Dioxide BUN 21 H Creatinine 0.5 L Glucose 114 H POC Glucose Lactic Acid Calcium Albumin Vancomycin Trough Crossmatch 12/21/19 12/22/19 12/22/19 23:02 10:34 10:34 WBC RBC 3.24 L Hgb 7.7 L 8.4 L Hct 24.8 L 27.0 L MCV 83 L MCH 26 L MCHC 31 L RDW 17.7 H Lymph % (Auto) [place] % (Auto) [place] # Seg Neutrophils % Seg Neutrophils # PT INR ABG pH ABG pO2 ABG HCO3 ABG O2 Saturation ABG Base Excess ABG Hemoglobin Sodium 147 H Potassium Chloride 112.3 H Carbon Dioxide 20 L BUN Creatinine 0.5 L Glucose 102 H POC Glucose Lactic Acid Calcium Albumin Vancomycin Trough Crossmatch 12/22/19 12/22/19 12/22/19 11:58 18:15 23:47 WBC RBC Hgb Hct MCV MCH MCHC RDW Lymph % (Auto) [place] % (Auto) [place] # Seg Neutrophils % Seg Neutrophils # PT INR ABG pH ABG pO2 ABG HCO3 ABG O2 Saturation ABG Base Excess ABG Hemoglobin Sodium Potassium Chloride Carbon Dioxide BUN Creatinine Glucose POC Glucose 126 H 114 H 121 H Lactic Acid Calcium Albumin Vancomycin Trough Crossmatch 12/23/19 12/23/19 12/23/19 05:46 06:38 06:38 WBC RBC 2.94 L Hgb 7.6 L Hct 23.8 L MCV 81 L MCH 26 L MCHC RDW 17.0 H Lymph % (Auto) [place] % (Auto) [place] # Seg Neutrophils % Seg Neutrophils # PT INR ABG pH ABG pO2 ABG HCO3 ABG O2 Saturation ABG Base Excess ABG Hemoglobin Sodium Potassium 3.3 L Chloride 107.5 H Carbon Dioxide BUN Creatinine 0.4 L Glucose 132 H POC Glucose 124 H Lactic Acid Calcium 8.1 L Albumin Vancomycin Trough Crossmatch 12/23/19 12/23/19 12/24/19 15:54 20:50 00:06 WBC RBC Hgb Hct MCV MCH MCHC RDW Lymph % (Auto) [place] % (Auto) [place] # Seg Neutrophils % Seg Neutrophils # PT INR ABG pH ABG pO2 ABG HCO3 ABG O2 Saturation ABG Base Excess ABG Hemoglobin Sodium Potassium Chloride Carbon Dioxide BUN Creatinine Glucose POC Glucose 150 H 135 H Lactic Acid Calcium Albumin Vancomycin Trough 21.4 H Crossmatch 12/24/19 12/24/19 12/25/19 05:34 18:28 05:31 WBC RBC Hgb Hct MCV MCH MCHC RDW Lymph % (Auto) [place] % (Auto) [place] # Seg Neutrophils % Seg Neutrophils # PT INR ABG pH ABG pO2 ABG HCO3 ABG O2 Saturation ABG Base Excess ABG Hemoglobin Sodium Potassium Chloride Carbon Dioxide BUN Creatinine Glucose POC Glucose 179 H 156 H 179 H Lactic Acid Calcium Albumin Vancomycin Trough Crossmatch 12/25/19 12/26/19 12/26/19 17:50 05:00 05:00 WBC 16.9 H RBC 2.91 L Hgb 7.3 L Hct 22.9 L MCV 79 L MCH 25 L MCHC RDW 17.7 H Lymph % (Auto) [place] % (Auto) [place] # Seg Neutrophils % Seg Neutrophils # PT INR ABG pH ABG pO2 ABG HCO3 ABG O2 Saturation ABG Base Excess ABG Hemoglobin Sodium 135 L D Potassium 3.1 L Chloride 96.6 L Carbon Dioxide BUN 7 L Creatinine 0.5 L Glucose 180 H POC Glucose 211 H Lactic Acid Calcium 8.0 L Albumin Vancomycin Trough Crossmatch 12/26/19 12/26/19 12/27/19 16:57 22:42 04:32 WBC 14.6 H RBC 2.95 L Hgb 7.4 L Hct 23.4 L MCV 79 L MCH 25 L MCHC RDW 18.4 H Lymph % (Auto) [place] % (Auto) [place] # Seg Neutrophils % Seg Neutrophils # PT INR ABG pH ABG pO2 ABG HCO3 ABG O2 Saturation ABG Base Excess ABG Hemoglobin Sodium Potassium Chloride Carbon Dioxide BUN Creatinine Glucose POC Glucose 117 H 174 H Lactic Acid Calcium Albumin Vancomycin Trough Crossmatch 12/27/19 12/27/19 04:32 05:59 WBC RBC Hgb Hct MCV MCH MCHC RDW Lymph % (Auto) [place] % (Auto) [place] # Seg Neutrophils % Seg Neutrophils # PT INR ABG pH ABG pO2 ABG HCO3 ABG O2 Saturation ABG Base Excess ABG Hemoglobin Sodium Potassium Chloride Carbon Dioxide BUN Creatinine 0.7 L Glucose 189 H POC Glucose 183 H Lactic Acid Calcium Albumin Vancomycin Trough Crossmatch Allied health notes reviewed: nursing
--- NOTE | 2019-12-27 16:48 | Progress Note ---
Assessment and Plan Assessment and plan: Acute upper GI bleed. Patient underwent endoscopy which revealed esophagitis in the lower third of the esophagus. There was a cratered, clean based ulcer in the incisura of the stomach. No high risk bleeding stigmata was seen. Continue to monitor H&H and transfuse for hemoglobin less than 7. Continue IV PPI. Acute hypoxic respiratory failure. was intubated, now extubated, Pulmonary following. Diabetes mellitus type 2. Continue Accu-Cheks and sliding scale insulin. Hypertension. Patient actually hypotensive given the bleed. Metabolic acidosis/lactic acidosis. Etiology likely secondary to hypotension/hypoperfusion from GI bleed. Patient with no obvious signs of infection. SIRS. Etiology secondary to above. Check blood cultures, UA and urine culture. 12/21/19 patient with acute resp failure. was intubated, now extubated. Transfer to medical floor 12/22/19 Got a text, followed by Call from Shanika, head of Risk management. She states Patient has been on contact and droplet precaution by error. Nurse Lamar caruso had mentioned to me 12/20 that patient on isolation because he was in a room with patient with Covid-19 positive. I discussed with Shanika, communications station manager. She told me today that this is an error, patient was not in same room with Covid positive patient, but a different room. Will dc isolation., Transfer to another floor. 12/23/19. Got a call from Dr. Laws( aka Dr. Crawley) yesterday that patient should be on contact and droplet isolation because he was in room in ED with patient that tested to be covid -19. He states it happened in one of rooms in which patient only by curtains. I discussed with Dr. Nixon. Will fill survey and sent to [facility] 12/24/19 No more bleeding. Covid 19 testing survey done yesterday 12/25/19 Awaiting response fro Covid testing survey 12/26/19 Covid test done,nasal swab sent. Results pending History Interval history: Patient initially presented with GI bleed now to r/o Covid infection Hospitalist Physical - Physical exam Narrative exam: GEN: Not in acute distress, lying in bed HEENT: Normocephalic, atraumatic, Neck: supple, No JVD Lungs: clear, no crackles, heart;S1 and S2 reg, tachy, no murmurs, rubs or gallop Abd:soft, non tender, non distended, normal bowel sounds, PEG tube Ext: No edema, no clubbing, no cyanosis, Neuro: Awake,alert, aphasia,prev stroke - Constitutional Vitals: Temp Pulse Resp BP Pulse Ox 98.5 F 90 19 116/74 100 12/27/19 12:20 12/27/19 12:20 12/27/19 12:20 12/27/19 12:20 12/27/19 12:20 General appearance: Present: other (Orally intubatedon mechanical ventilation) Results - Labs CBC & Chem 7: 12/27/19 04:32 12/27/19 04:32 Labs: Laboratory Last Values WBC 14.6 K/mm3 (4.5-11.0) H 12/27/19 04:32 RBC 2.95 M/mm3 (3.65-5.03) L 12/27/19 04:32 Hgb 7.4 gm/dl (11.8-15.2) L 12/27/19 04:32 Hct 23.4 % (35.5-45.6) L 12/27/19 04:32 MCV 79 fl (84-94) L 12/27/19 04:32 MCH 25 pg (28-32) L 12/27/19 04:32 MCHC 32 % (32-34) 12/27/19 04:32 RDW 18.4 % (13.2-15.2) H 12/27/19 04:32 Plt Count 266 K/mm3 (140-440) 12/27/19 04:32 Lymph % (Auto) 16.7 % (13.4-35.0) 12/21/19 04:38 Dent % (Auto) 10.8 % (0.0-7.3) H 12/21/19 04:38 Eos % (Auto) 1.2 % (0.0-4.3) 12/21/19 04:38 Baso % (Auto) 0.5 % (0.0-1.8) 12/21/19 04:38 Lymph # 1.4 K/mm3 (1.2-5.4) 12/21/19 04:38 Dent # 0.9 K/mm3 (0.0-0.8) H 12/21/19 04:38 Eos # 0.1 K/mm3 (0.0-0.4) 12/21/19 04:38 Baso # 0.0 K/mm3 (0.0-0.1) 12/21/19 04:38 Seg Neutrophils % 70.8 % (40.0-70.0) H 12/21/19 04:38 Seg Neutrophils # 6.0 K/mm3 (1.8-7.7) 12/21/19 04:38 PT 15.3 Sec. (12.2-14.9) H 12/19/19 09:14 INR 1.19 (0.87-1.13) H 12/19/19 09:14 APTT 26.4 Sec. (24.2-36.6) 12/19/19 09:14 ABG pH 7.432 pH Units (7.350-7.450) 12/20/19 12:15 ABG pCO2 36.0 mm Hg 12/20/19 12:15 ABG pO2 150.8 mm Hg (80.0-90.0) H 12/20/19 12:15 ABG HCO3 23.5 mmol/L (20.0-26.0) 12/20/19 12:15 ABG O2 Saturation 98.9 % (95.0-99.0) 12/20/19 12:15 ABG O2 Content 7.8 (0.0-44) 12/20/19 12:15 ABG Base Excess -0.8 mmol/L (-2.0-3.0) 12/20/19 12:15 ABG Hemoglobin 5.5 gm/dl (14.0-18.0) L 12/20/19 12:15 ABG Carboxyhemoglobin 1.9 % (0.0-5.0) 12/20/19 12:15 ABG Methemoglobin 0.5 % (0.0-1.5) 12/20/19 12:15 Oxyhemoglobin 96.5 % (95.0-99.0) 12/20/19 12:15 FiO2 35 % 12/20/19 12:15 Sodium 137 mmol/L (137-145) 12/27/19 04:32 Potassium 4.0 mmol/L (3.6-5.0) D 12/27/19 04:32 Chloride 103.3 mmol/L (98-107) 12/27/19 04:32 Carbon Dioxide 23 mmol/L (22-30) 12/27/19 04:32 Anion Gap 15 mmol/L 12/27/19 04:32 BUN 11 mg/dL (9-20) 12/27/19 04:32 Creatinine 0.7 mg/dL (0.8-1.5) L 12/27/19 04:32 Estimated GFR > 60 ml/min 12/27/19 04:32 BUN/Creatinine Ratio 16 % 12/27/19 04:32 Glucose 189 mg/dL (75-100) H 12/27/19 04:32 POC Glucose 183 (70-105) H 12/27/19 05:59 Lactic Acid 5.10 mmol/L (0.7-2.0) H* 12/19/19 15:55 Calcium 8.4 mg/dL (8.4-10.2) 12/27/19 04:32 Magnesium 2.00 mg/dL (1.7-2.3) 12/19/19 09:14 Total Bilirubin 0.20 mg/dL (0.1-1.2) 12/19/19 09:14 AST 13 units/L (5-40) 12/19/19 09:14 ALT 11 units/L (7-56) 12/19/19 09:14 Alkaline Phosphatase 85 units/L (35-129) 12/19/19 09:14 Ammonia 35.0 umol/L (25-60) 12/19/19 09:14 Total Protein 6.6 g/dL (6.3-8.2) 12/19/19 09:14 Albumin 3.4 g/dL (3.9-5) L 12/19/19 09:14 Albumin/Globulin Ratio 1.1 % 12/19/19 09:14 Lipase 49 units/L (13-60) 12/19/19 09:14 Urine Color Yellow (Yellow) 12/19/19 10:02 Urine Turbidity Slightly-cloudy (Clear) 12/19/19 10:02 Urine pH 5.0 (5.0-7.0) 12/19/19 10:02 Ur Specific Dickens 1.024 (1.003-1.030) 12/19/19 10:02 Urine Protein 30 mg/dl mg/dL (Negative) 12/19/19 10:02 Urine Glucose (UA) 50 mg/dL (Negative) 12/19/19 10:02 Urine Ketones Neg mg/dL (Negative) 12/19/19 10:02 Urine Blood Neg (Negative) 12/19/19 10:02 Urine Nitrite Neg (Negative) 12/19/19 10:02 Urine Bilirubin Neg (Negative) 12/19/19 10:02 Urine Urobilinogen < 2.0 mg/dL (<2.0) 12/19/19 10:02 Ur Leukocyte Esterase Neg (Negative) 12/19/19 10:02 Urine WBC (Auto) 2.0 /HPF (0.0-6.0) 12/19/19 10:02 Urine RBC (Auto) 1.0 /HPF (0.0-6.0) 12/19/19 10:02 U Epithel Cells (Auto) < 1.0 /HPF (0-13.0) 12/19/19 10:02 Hyaline Casts 11 /LPF 12/19/19 10:02 Urine Mucus 2+ /HPF 12/19/19 10:02 Urine Sperm Few /HPF (CARDIOPULMONARY PHYSICAL THERAPIST) 12/19/19 10:02 Vancomycin Trough 21.4 ug/mL (5.0-20.0) H 12/23/19 20:50 Random Vancomycin 7.5 ug/mL (0-40.0) 12/21/19 23:02 Blood Type O POSITIVE 12/19/19 09:10 Antibody Screen Negative 12/19/19 09:10 Crossmatch See Detail 12/19/19 09:10 Microbiology: Microbiology 12/23/19 00:41 Peripheral/Venous Blood Culture - Preliminary NO GROWTH AFTER 4 DAYS 12/22/19 23:56 Peripheral/Venous Blood Culture - Preliminary NO GROWTH AFTER 4 DAYS - Diagnostic Impressions Diagnostic Impressions: Echocardiogram 12/22/19 17:57 Transthoracic Echocardiogram Indication: R/O Endocarditis BP: 133/79 HR: 81 Conclusions *Global left ventricular systolic function is normal. *Mild concentric left ventricular hypertrophy is observed. *The estimated ejection fraction is 50-55%. *Abnormal left ventricular diastolic filling is observed, consistent with impaired relaxation. *The right ventricular global systolic function is mildly reduced. *There is no evidence of aortic regurgitation. *There is trace of mitral regurgitation. *There is trace tricuspid regurgitation. *The right ventricular systolic pressure is calculated at 38 mmHg. *There is trace pulmonic regurgitation. Findings Left Ventricle: The left ventricular chamber size is normal. Mild concentric left ventricular hypertrophy is observed. Global left ventricular systolic function is normal. The estimated ejection fraction is 50-55%. Abnormal left ventricular diastolic filling is observed, consistent with impaired relaxation. Left Atrium: The left atrial chamber size is normal. Right Ventricle: The right ventricular cavity size is normal. The right ventricular global systolic function is mildly reduced. Right Atrium: The right atrial cavity size is normal. Aortic Valve: The aortic valve is trileaflet. There is no evidence of aortic regurgitation. Mitral Valve: The mitral valve leaflets are mildly thickened. There is trace of mitral regurgitation. Tricuspid Valve: The tricuspid valve leaflets are normal. There is trace tricuspid regurgitation. The right ventricular systolic pressure is calculated at 38 mmHg. Pulmonic Valve: The pulmonic valve appears normal. There is trace pulmonic regurgitation. Pericardium: There is no pericardial effusion. Aorta: There is no dilatation of the ascending aorta. There is no dilatation of the aortic root. Venous: The inferior vena cava appears normal in size. There is a greater than 50% respiratory change in the inferior vena cava dimension. Measurements Chambers 2D Name Value Normal Range IVSd (2D) 1.33 cm (0.6 - 1.1) LVPWd (2D) 1.29 cm (0.6 - 1.1) LVIDd (2D) 3.1 cm (3.7 - 5.6) LVIDs (2D) 2.26 cm (2 - 3.8) LV FS (2D) 27.25 % - EF Teichholz (2D) 54.5 % - Ao root diameter (2D) 2.84 cm (2 - 3.7) Volumes/Mass Name Value Normal Range LA ESV SP 4CH (A/L) 20.15 ml - LA ESV SP 2CH (A/L) 33.14 ml - LA ESV BP (A/L) 28.63 ml - LA ESV BP (A/L) index 15.39 ml/m2 - LA ESV SP 4CH (MOD) 18.4 ml - LA ESV SP 2CH (MOD) 29.82 ml - LA ESV BP (MOD) 25.89 ml - LA ESV BP (MOD) index 13.92 ml/m2 - Diastolic/Systolic Function Name Value Normal Range MV E-wave Vmax 1.1 m/sec - MV deceleration time 171.63 msec - MV A-wave Vmax 1.18 m/sec - MV E:A ratio 0.94 ratio - Aortic Valve Name Value Normal Range AV Vmax 1.37 m/sec - AV VTI 26.97 cm - AV peak gradient 7.5 mmHg - AV mean gradient 3.79 mmHg - LVOT diameter 2.03 cm - LVOT Vmax 1.09 m/sec - LVOT VTI 23.3 cm - LVOT peak gradient 4.76 mmHg - LVOT mean gradient 2.45 mmHg - SV LVOT 75.15 ml - DARINEL (continuity Vmax) 2.57 cm2 - DARINEL (continuity VTI) 2.79 cm2 - Tricuspid Valve Name Value Normal Range TR Vmax 2.96 m/sec - TR peak gradient 35 mmHg - RAP 3 mmHg - RVSP 38 mmHg - IVC diameter 1.78 cm (1.2 - 2.3) Pulmonic Valve/Qp:Qs Name Value Normal Range PV Vmax 0.96 m/sec - PV peak gradient 3.68 mmHg - CO end-diastolic Vmax 1.42 m/sec - PV acceleration time 64.7 msec - NDUM: 12/24/19 1217 Amended Report Transthoracic Echocardiogram Indication: R/O Endocarditis BP: 133/79 HR: 81 Conclusions *Global left ventricular systolic function is normal. *Mild concentric left ventricular hypertrophy is observed. *The estimated ejection fraction is 50-55%. *Abnormal left ventricular diastolic filling is observed, consistent with impaired relaxation. *The right ventricular global systolic function is mildly reduced. *There is no evidence of aortic regurgitation. *There is trace of mitral regurgitation. *There is trace tricuspid regurgitation. *The right ventricular systolic pressure is calculated at 38 mmHg. *There is trace pulmonic regurgitation. *No obvious endocardtis noted on mitral and aortic and tricuspid valve, if clinically indicated suggest JUAN Findings Left Ventricle: The left ventricular chamber size is normal. Mild concentric left ventricular hypertrophy is observed. Global left ventricular systolic function is normal. The estimated ejection fraction is 50-55%. Abnormal left ventricular diastolic filling is observed, consistent with impaired relaxation. Left Atrium: The left atrial chamber size is normal. Right Ventricle: The right ventricular cavity size is normal. The right ventricular global systolic function is mildly reduced. Right Atrium: The right atrial cavity size is normal. Aortic Valve: The aortic valve is trileaflet. There is no evidence of aortic regurgitation. Mitral Valve: The mitral valve leaflets are mildly thickened. There is trace of mitral regurgitation. Tricuspid Valve: The tricuspid valve leaflets are normal. There is trace tricuspid regurgitation. The right ventricular systolic pressure is calculated at 38 mmHg. Pulmonic Valve: The pulmonic valve appears normal. There is trace pulmonic regurgitation. Pericardium: There is no pericardial effusion. Aorta: There is no dilatation of the ascending aorta. There is no dilatation of the aortic root. Venous: The inferior vena cava appears normal in size. There is a greater than 50% respiratory change in the inferior vena cava dimension. Measurements Chambers 2D Name Value Normal Range IVSd (2D) 1.33 cm (0.6 - 1.1) LVPWd (2D) 1.29 cm (0.6 - 1.1) LVIDd (2D) 3.1 cm (3.7 - 5.6) LVIDs (2D) 2.26 cm (2 - 3.8) LV FS (2D) 27.25 % - EF Teichholz (2D) 54.5 % - Ao root diameter (2D) 2.84 cm (2 - 3.7) Volumes/Mass Name Value Normal Range LA ESV SP 4CH (A/L) 20.15 ml - LA ESV SP 2CH (A/L) 33.14 ml - LA ESV BP (A/L) 28.63 ml - LA ESV BP (A/L) index 15.39 ml/m2 - LA ESV SP 4CH (MOD) 18.4 ml - LA ESV SP 2CH (MOD) 29.82 ml - LA ESV BP (MOD) 25.89 ml - LA ESV BP (MOD) index 13.92 ml/m2 - Diastolic/Systolic Function Name Value Normal Range MV E-wave Vmax 1.1 m/sec - MV deceleration time 171.63 msec - MV A-wave Vmax 1.18 m/sec - MV E:A ratio 0.94 ratio - Aortic Valve Name Value Normal Range AV Vmax 1.37 m/sec - AV VTI 26.97 cm - AV peak gradient 7.5 mmHg - AV mean gradient 3.79 mmHg - LVOT diameter 2.03 cm - LVOT Vmax 1.09 m/sec - LVOT VTI 23.3 cm - LVOT peak gradient 4.76 mmHg - LVOT mean gradient 2.45 mmHg - SV LVOT 75.15 ml - DARINEL (continuity Vmax) 2.57 cm2 - DARINEL (continuity VTI) 2.79 cm2 - Tricuspid Valve Name Value Normal Range TR Vmax 2.96 m/sec - TR peak gradient 35 mmHg - RAP 3 mmHg - RVSP 38 mmHg - IVC diameter 1.78 cm (1.2 - 2.3) Pulmonic Valve/Qp:Qs Name Value Normal Range PV Vmax 0.96 m/sec - PV peak gradient 3.68 mmHg - CO end-diastolic Vmax 1.42 m/sec - PV acceleration time 64.7 msec - Hurtado/IV: Voiding Method Condom Catheter IV Catheter Type [Left Forearm INT / Saline Lock ] IV Catheter Type [Left Triple Lumen Cath Subclavian] IV Catheter Type [Right INT / Saline Lock Antecubital] Active Medications - Current Medications Current Medications: Generic Name Dose Route Start Last Admin Trade Name Freq PRN Reason Stop Dose Admin Acetaminophen 650 mg 12/19/19 12:15 12/24/19 22:31 Tylenol PO 650 mg Q4H PRN Administration Fever >101 Lipase/Protease/Amylase 1 each 12/22/19 10:[address] 10,500 Unit FEEDTUBE PRN PRN For Clogged Feeding Tube Ascorbic Acid 500 mg 12/19/19 13:00 12/27/19 09:09 Vitamin C PO 500 mg Q12HR NIKOLAS Administration Atorvastatin Calcium 20 mg 12/19/19 22:00 12/26/19 22:27 Lipitor PO 20 mg QHS NIKOLAS Administration Bismuth Subsalicylate 524 mg 12/19/19 12:15 Pepto Bismol PO Q6H PRN Diarrhea Citalopram Hydrobromide 30 mg 12/19/19 14:00 12/27/19 09:06 Celexa PO 30 mg DAILY NIKOLAS Administration Ferrous Sulfate 308 mg 12/20/19 22:00 12/27/19 09:06 Ferrous Sulfate FEEDTUBE 308 mg BID NIKOLAS Administration Hydrophilic Ointment 1 applic 12/19/19 10:35 Vaseline Lip Therapy TP Q2HR PRN Dry Lips Ceftriaxone Sodium 2 gm in 100 mls @ 200 mls/hr 12/27/19 12:00 Rocephin/Ns 2 Gm/100 Ml IV Q24HR NIKOLAS Protocol Lansoprazole 30 mg 12/23/19 10:00 12/27/19 09:06 Prevacid Solutab FEEDTUBE 30 mg BID NIKOLAS Administration Latanoprost 1 drops 12/19/19 22:00 12/26/19 22:27 Latanoprost 0.005% OD 1 drops QHS NIKOLAS Administration Lisinopril 10 mg 12/19/19 13:00 12/27/19 09:10 Zestril PO 10 mg QDAY NIKOLAS Administration Magnesium Oxide 400 mg 12/20/19 10:00 12/27/19 09:06 Mag-Ox PO 400 mg QDAY NIKOLAS Administration Multi-Ingred Cream/Lotion/Oil/Oint 1 applic 12/19/19 10:35 Artificial Tears Ophth Oint OU Q4HR PRN Dry Eye(s) Quetiapine Fumarate 50 mg 12/19/19 14:00 12/27/19 15:20 Seroquel PO 50 mg TID NIKOLAS Administration Simple Syrup 15 ml 12/22/19 09:51 Simple Syrup FEEDTUBE PRN PRN Hypoglycemia Simple Syrup 30 ml 12/22/19 10:05 Simple Syrup FEEDTUBE PRN PRN Hypoglycemia Sodium Bicarbonate 325 mg 12/22/19 10:05 Sodium Bicarbonate FEEDTUBE PRN PRN For Clogged Feeding Tube Sodium Chloride 10 ml 12/19/19 22:00 12/27/19 09:08 Sodium Chloride Flush Syringe 10 Ml IV 10 ml BID NIKOLAS Administration Sodium Chloride 10 ml 12/19/19 12:13 Sodium Chloride Flush Syringe 10 Ml IV PRN PRN LINE FLUSH Thiamine HCl 100 mg 12/20/19 10:00 12/27/19 09:06 Vitamin B-1 PO 100 mg DAILY NIKOLAS Administration Timolol Maleate 1 drops 12/19/19 22:00 12/27/19 09:09 Timoptic OU 1 drops BID NIKOLAS Administration Nutrition/Malnutrition Assess - Dietary Evaluation Nutrition/Malnutrition Findings: Nutrition Notes Start: 12/20/19 08:53 Freq: Status: Active Protocol: Document 12/24/19 13:33 LM (Rec: 12/24/19 13:38 LM [email or web address]) Nutrition Notes Initial or Follow up Reassessment Current Diagnosis Acute Kidney Injury,COPD, Diabetes,Hypertension, Respiratory Failure,Stroke Other Pertinent Diagnosis GI bleed, encephalopathy, debility Current Diet Glucerna 1.2 at 65ml/hr Labs/Tests POC glu 179 Pertinent Medications Reviewed Height 5 ft 6 in Weight 76.3 kg [place] Body Weight (kg) 64.54 BMI 27.1 Weight Status Overweight Subjective/Other Information Glucerna running at goal and tolerating per RN. Percent of energy/protein needs met: 100%/100% Burn Absent Trauma Absent Current % PO Negligible Minimum of two criteria No physical signs of malnutrition #1 Nutrition Diagnosis Inadequate oral intake Diagnosis Progress(for reassessment Continues documentation) Is patient on ventilator? No Is Patient Ambulatory and/or Out of Bed No REE-([facility]-confined to bed) [phone] Calculation Used for Recommendations [facility] Additional Notes Protein: 60-90g (0.8-1.2g/kg) Fluid: 1 ml/kcal Nutrition Intervention Change Diet Order: TF Nutrition Support: Glucerna 1.2 at 65 ml/hr Flush 200 ml q4h for hypernatremia Flush 100 ml q4h once resolved Kcal 1,872 Protein (gm) 94 Fluid (mL) 1,256 Goal #1 TF tolerance Goal #2 Meet at least 75% of energy and protein needs via TF Anticipated Discharge Needs: TF Follow-Up By: 12/30/19 Additional Comments F/U for TF tolerance
--- NOTE | 2019-12-27 17:19 | Progress Note ---
Assessment and Plan Assessment and plan: Acute upper GI bleed. Patient underwent endoscopy which revealed esophagitis in the lower third of the esophagus. There was a cratered, clean based ulcer in the incisura of the stomach. No high risk bleeding stigmata was seen. Continue to monitor H&H and transfuse for hemoglobin less than 7. Apparently patient was put in room in ED,sepaarated only by curtain with a patient later proved to have Covid 19. Therefore Covid test done. Awaiting result. Acute hypoxic respiratory failure. was intubated, now extubated, Pulmonary following. Diabetes mellitus type 2. Continue Accu-Cheks and sliding scale insulin. Hypertension. Patient actually hypotensive given the bleed. Metabolic acidosis/lactic acidosis. Etiology likely secondary to hypotension/hypoperfusion from GI bleed. Patient with no obvious signs of infection. SIRS. Etiology secondary to above. Check blood cultures, UA and urine culture. 12/21/19 patient with acute resp failure. was intubated, now extubated. Transfer to medical floor 12/22/19 Got a text, followed by Call from Shanika, head of Risk management. She states Patient has been on contact and droplet precaution by error. Nurse Lamar caruso had mentioned to me 12/20 that patient on isolation because he was in a room with patient with Covid-19 positive. I discussed with Shanika, it service manager. She told me today that this is an error, patient was not in same room with Covid positive patient, but a different room. Will dc isolation., Transfer to another floor. 12/23/19. Got a call from Dr. Laws( aka Dr. Crawley) yesterday that patient should be on contact and droplet isolation because he was in room in ED with patient that tested to be covid -19. He states it happened in one of rooms in which patient only by curtains. I discussed with Dr. Nixon. Will fill survey and sent to [facility] 12/24/19 No more bleeding. Covid 19 testing survey done yesterday 12/25/19 Awaiting response fro Covid testing survey 12/26/19 Covid test done,nasal swab sent. Results pending. 12/27/19 family request oral food. Get speech therapy. Covid test done. Results pending. Awaiting result to discharge back to [facility] History Interval history: Patient initially presented with GI bleed now to r/o Covid infection family request food by mouth stating he was eating by mouth at [facility] even though has PEG Hospitalist Physical - Physical exam Narrative exam: GEN: Not in acute distress, lying in bed HEENT: Normocephalic, atraumatic, Neck: supple, No JVD Lungs: clear, no crackles, heart;S1 and S2 reg, tachy, no murmurs, rubs or gallop Abd:soft, non tender, non distended, normal bowel sounds, PEG tube Ext: No edema, no clubbing, no cyanosis, Neuro: Awake,alert, aphasia,prev stroke - Constitutional Vitals: Temp Pulse Resp BP Pulse Ox 98.5 F 90 19 116/74 100 12/27/19 12:20 12/27/19 12:20 12/27/19 12:20 12/27/19 12:20 12/27/19 12:20 General appearance: Present: other (Orally intubatedon mechanical ventilation) Results - Labs CBC & Chem 7: 12/27/19 04:32 12/27/19 04:32 Labs: Laboratory Last Values WBC 14.6 K/mm3 (4.5-11.0) H 12/27/19 04:32 RBC 2.95 M/mm3 (3.65-5.03) L 12/27/19 04:32 Hgb 7.4 gm/dl (11.8-15.2) L 12/27/19 04:32 Hct 23.4 % (35.5-45.6) L 12/27/19 04:32 MCV 79 fl (84-94) L 12/27/19 04:32 MCH 25 pg (28-32) L 12/27/19 04:32 MCHC 32 % (32-34) 12/27/19 04:32 RDW 18.4 % (13.2-15.2) H 12/27/19 04:32 Plt Count 266 K/mm3 (140-440) 12/27/19 04:32 Lymph % (Auto) 16.7 % (13.4-35.0) 12/21/19 04:38 Chambers % (Auto) 10.8 % (0.0-7.3) H 12/21/19 04:38 Eos % (Auto) 1.2 % (0.0-4.3) 12/21/19 04:38 Baso % (Auto) 0.5 % (0.0-1.8) 12/21/19 04:38 Lymph # 1.4 K/mm3 (1.2-5.4) 12/21/19 04:38 Chambers # 0.9 K/mm3 (0.0-0.8) H 12/21/19 04:38 Eos # 0.1 K/mm3 (0.0-0.4) 12/21/19 04:38 Baso # 0.0 K/mm3 (0.0-0.1) 12/21/19 04:38 Seg Neutrophils % 70.8 % (40.0-70.0) H 12/21/19 04:38 Seg Neutrophils # 6.0 K/mm3 (1.8-7.7) 12/21/19 04:38 PT 15.3 Sec. (12.2-14.9) H 12/19/19 09:14 INR 1.19 (0.87-1.13) H 12/19/19 09:14 APTT 26.4 Sec. (24.2-36.6) 12/19/19 09:14 ABG pH 7.432 pH Units (7.350-7.450) 12/20/19 12:15 ABG pCO2 36.0 mm Hg 12/20/19 12:15 ABG pO2 150.8 mm Hg (80.0-90.0) H 12/20/19 12:15 ABG HCO3 23.5 mmol/L (20.0-26.0) 12/20/19 12:15 ABG O2 Saturation 98.9 % (95.0-99.0) 12/20/19 12:15 ABG O2 Content 7.8 (0.0-44) 12/20/19 12:15 ABG Base Excess -0.8 mmol/L (-2.0-3.0) 12/20/19 12:15 ABG Hemoglobin 5.5 gm/dl (14.0-18.0) L 12/20/19 12:15 ABG Carboxyhemoglobin 1.9 % (0.0-5.0) 12/20/19 12:15 ABG Methemoglobin 0.5 % (0.0-1.5) 12/20/19 12:15 Oxyhemoglobin 96.5 % (95.0-99.0) 12/20/19 12:15 FiO2 35 % 12/20/19 12:15 Sodium 137 mmol/L (137-145) 12/27/19 04:32 Potassium 4.0 mmol/L (3.6-5.0) D 12/27/19 04:32 Chloride 103.3 mmol/L (98-107) 12/27/19 04:32 Carbon Dioxide 23 mmol/L (22-30) 12/27/19 04:32 Anion Gap 15 mmol/L 12/27/19 04:32 BUN 11 mg/dL (9-20) 12/27/19 04:32 Creatinine 0.7 mg/dL (0.8-1.5) L 12/27/19 04:32 Estimated GFR > 60 ml/min 12/27/19 04:32 BUN/Creatinine Ratio 16 % 12/27/19 04:32 Glucose 189 mg/dL (75-100) H 12/27/19 04:32 POC Glucose 183 (70-105) H 12/27/19 05:59 Lactic Acid 5.10 mmol/L (0.7-2.0) H* 12/19/19 15:55 Calcium 8.4 mg/dL (8.4-10.2) 12/27/19 04:32 Magnesium 2.00 mg/dL (1.7-2.3) 12/19/19 09:14 Total Bilirubin 0.20 mg/dL (0.1-1.2) 12/19/19 09:14 AST 13 units/L (5-40) 12/19/19 09:14 ALT 11 units/L (7-56) 12/19/19 09:14 Alkaline Phosphatase 85 units/L (35-129) 12/19/19 09:14 Ammonia 35.0 umol/L (25-60) 12/19/19 09:14 Total Protein 6.6 g/dL (6.3-8.2) 12/19/19 09:14 Albumin 3.4 g/dL (3.9-5) L 12/19/19 09:14 Albumin/Globulin Ratio 1.1 % 12/19/19 09:14 Lipase 49 units/L (13-60) 12/19/19 09:14 Urine Color Yellow (Yellow) 12/19/19 10:02 Urine Turbidity Slightly-cloudy (Clear) 12/19/19 10:02 Urine pH 5.0 (5.0-7.0) 12/19/19 10:02 Ur Specific [place] 1.024 (1.003-1.030) 12/19/19 10:02 Urine Protein 30 mg/dl mg/dL (Negative) 12/19/19 10:02 Urine Glucose (UA) 50 mg/dL (Negative) 12/19/19 10:02 Urine Ketones Neg mg/dL (Negative) 12/19/19 10:02 Urine Blood Neg (Negative) 12/19/19 10:02 Urine Nitrite Neg (Negative) 12/19/19 10:02 Urine Bilirubin Neg (Negative) 12/19/19 10:02 Urine Urobilinogen < 2.0 mg/dL (<2.0) 12/19/19 10:02 Ur Leukocyte Esterase Neg (Negative) 12/19/19 10:02 Urine WBC (Auto) 2.0 /HPF (0.0-6.0) 12/19/19 10:02 Urine RBC (Auto) 1.0 /HPF (0.0-6.0) 12/19/19 10:02 U Epithel Cells (Auto) < 1.0 /HPF (0-13.0) 12/19/19 10:02 Hyaline Casts 11 /LPF 12/19/19 10:02 Urine Mucus 2+ /HPF 12/19/19 10:02 Urine Sperm Few /HPF (SURVEYING TEACHER) 12/19/19 10:02 Vancomycin Trough 21.4 ug/mL (5.0-20.0) H 12/23/19 20:50 Random Vancomycin 7.5 ug/mL (0-40.0) 12/21/19 23:02 Blood Type O POSITIVE 12/19/19 09:10 Antibody Screen Negative 12/19/19 09:10 Crossmatch See Detail 12/19/19 09:10 Microbiology: Microbiology 12/23/19 00:41 Peripheral/Venous Blood Culture - Preliminary NO GROWTH AFTER 4 DAYS 12/22/19 23:56 Peripheral/Venous Blood Culture - Preliminary NO GROWTH AFTER 4 DAYS - Diagnostic Impressions Diagnostic Impressions: Echocardiogram 12/22/19 17:57 Transthoracic Echocardiogram Indication: R/O Endocarditis BP: 133/79 HR: 81 Conclusions *Global left ventricular systolic function is normal. *Mild concentric left ventricular hypertrophy is observed. *The estimated ejection fraction is 50-55%. *Abnormal left ventricular diastolic filling is observed, consistent with impaired relaxation. *The right ventricular global systolic function is mildly reduced. *There is no evidence of aortic regurgitation. *There is trace of mitral regurgitation. *There is trace tricuspid regurgitation. *The right ventricular systolic pressure is calculated at 38 mmHg. *There is trace pulmonic regurgitation. Findings Left Ventricle: The left ventricular chamber size is normal. Mild concentric left ventricular hypertrophy is observed. Global left ventricular systolic function is normal. The estimated ejection fraction is 50-55%. Abnormal left ventricular diastolic filling is observed, consistent with impaired relaxation. Left Atrium: The left atrial chamber size is normal. Right Ventricle: The right ventricular cavity size is normal. The right ventricular global systolic function is mildly reduced. Right Atrium: The right atrial cavity size is normal. Aortic Valve: The aortic valve is trileaflet. There is no evidence of aortic regurgitation. Mitral Valve: The mitral valve leaflets are mildly thickened. There is trace of mitral regurgitation. Tricuspid Valve: The tricuspid valve leaflets are normal. There is trace tricuspid regurgitation. The right ventricular systolic pressure is calculated at 38 mmHg. Pulmonic Valve: The pulmonic valve appears normal. There is trace pulmonic regurgitation. Pericardium: There is no pericardial effusion. Aorta: There is no dilatation of the ascending aorta. There is no dilatation of the aortic root. Venous: The inferior vena cava appears normal in size. There is a greater than 50% respiratory change in the inferior vena cava dimension. Measurements Chambers 2D Name Value Normal Range IVSd (2D) 1.33 cm (0.6 - 1.1) LVPWd (2D) 1.29 cm (0.6 - 1.1) LVIDd (2D) 3.1 cm (3.7 - 5.6) LVIDs (2D) 2.26 cm (2 - 3.8) LV FS (2D) 27.25 % - EF Teichholz (2D) 54.5 % - Ao root diameter (2D) 2.84 cm (2 - 3.7) Volumes/Mass Name Value Normal Range LA ESV SP 4CH (A/L) 20.15 ml - LA ESV SP 2CH (A/L) 33.14 ml - LA ESV BP (A/L) 28.63 ml - LA ESV BP (A/L) index 15.39 ml/m2 - LA ESV SP 4CH (MOD) 18.4 ml - LA ESV SP 2CH (MOD) 29.82 ml - LA ESV BP (MOD) 25.89 ml - LA ESV BP (MOD) index 13.92 ml/m2 - Diastolic/Systolic Function Name Value Normal Range MV E-wave Vmax 1.1 m/sec - MV deceleration time 171.63 msec - MV A-wave Vmax 1.18 m/sec - MV E:A ratio 0.94 ratio - Aortic Valve Name Value Normal Range AV Vmax 1.37 m/sec - AV VTI 26.97 cm - AV peak gradient 7.5 mmHg - AV mean gradient 3.79 mmHg - LVOT diameter 2.03 cm - LVOT Vmax 1.09 m/sec - LVOT VTI 23.3 cm - LVOT peak gradient 4.76 mmHg - LVOT mean gradient 2.45 mmHg - SV LVOT 75.15 ml - DARINEL (continuity Vmax) 2.57 cm2 - DARINEL (continuity VTI) 2.79 cm2 - Tricuspid Valve Name Value Normal Range TR Vmax 2.96 m/sec - TR peak gradient 35 mmHg - RAP 3 mmHg - RVSP 38 mmHg - IVC diameter 1.78 cm (1.2 - 2.3) Pulmonic Valve/Qp:Qs Name Value Normal Range PV Vmax 0.96 m/sec - PV peak gradient 3.68 mmHg - MS end-diastolic Vmax 1.42 m/sec - PV acceleration time 64.7 msec - NDUM: 12/24/19 1217 Amended Report Transthoracic Echocardiogram Indication: R/O Endocarditis BP: 133/79 HR: 81 Conclusions *Global left ventricular systolic function is normal. *Mild concentric left ventricular hypertrophy is observed. *The estimated ejection fraction is 50-55%. *Abnormal left ventricular diastolic filling is observed, consistent with impaired relaxation. *The right ventricular global systolic function is mildly reduced. *There is no evidence of aortic regurgitation. *There is trace of mitral regurgitation. *There is trace tricuspid regurgitation. *The right ventricular systolic pressure is calculated at 38 mmHg. *There is trace pulmonic regurgitation. *No obvious endocardtis noted on mitral and aortic and tricuspid valve, if clinically indicated suggest JUAN Findings Left Ventricle: The left ventricular chamber size is normal. Mild concentric left ventricular hypertrophy is observed. Global left ventricular systolic function is normal. The estimated ejection fraction is 50-55%. Abnormal left ventricular diastolic filling is observed, consistent with impaired relaxation. Left Atrium: The left atrial chamber size is normal. Right Ventricle: The right ventricular cavity size is normal. The right ventricular global systolic function is mildly reduced. Right Atrium: The right atrial cavity size is normal. Aortic Valve: The aortic valve is trileaflet. There is no evidence of aortic regurgitation. Mitral Valve: The mitral valve leaflets are mildly thickened. There is trace of mitral regurgitation. Tricuspid Valve: The tricuspid valve leaflets are normal. There is trace tricuspid regurgitation. The right ventricular systolic pressure is calculated at 38 mmHg. Pulmonic Valve: The pulmonic valve appears normal. There is trace pulmonic regurgitation. Pericardium: There is no pericardial effusion. Aorta: There is no dilatation of the ascending aorta. There is no dilatation of the aortic root. Venous: The inferior vena cava appears normal in size. There is a greater than 50% respiratory change in the inferior vena cava dimension. Measurements Chambers 2D Name Value Normal Range IVSd (2D) 1.33 cm (0.6 - 1.1) LVPWd (2D) 1.29 cm (0.6 - 1.1) LVIDd (2D) 3.1 cm (3.7 - 5.6) LVIDs (2D) 2.26 cm (2 - 3.8) LV FS (2D) 27.25 % - EF Teichholz (2D) 54.5 % - Ao root diameter (2D) 2.84 cm (2 - 3.7) Volumes/Mass Name Value Normal Range LA ESV SP 4CH (A/L) 20.15 ml - LA ESV SP 2CH (A/L) 33.14 ml - LA ESV BP (A/L) 28.63 ml - LA ESV BP (A/L) index 15.39 ml/m2 - LA ESV SP 4CH (MOD) 18.4 ml - LA ESV SP 2CH (MOD) 29.82 ml - LA ESV BP (MOD) 25.89 ml - LA ESV BP (MOD) index 13.92 ml/m2 - Diastolic/Systolic Function Name Value Normal Range MV E-wave Vmax 1.1 m/sec - MV deceleration time 171.63 msec - MV A-wave Vmax 1.18 m/sec - MV E:A ratio 0.94 ratio - Aortic Valve Name Value Normal Range AV Vmax 1.37 m/sec - AV VTI 26.97 cm - AV peak gradient 7.5 mmHg - AV mean gradient 3.79 mmHg - LVOT diameter 2.03 cm - LVOT Vmax 1.09 m/sec - LVOT VTI 23.3 cm - LVOT peak gradient 4.76 mmHg - LVOT mean gradient 2.45 mmHg - SV LVOT 75.15 ml - DARINEL (continuity Vmax) 2.57 cm2 - DARINEL (continuity VTI) 2.79 cm2 - Tricuspid Valve Name Value Normal Range TR Vmax 2.96 m/sec - TR peak gradient 35 mmHg - RAP 3 mmHg - RVSP 38 mmHg - IVC diameter 1.78 cm (1.2 - 2.3) Pulmonic Valve/Qp:Qs Name Value Normal Range PV Vmax 0.96 m/sec - PV peak gradient 3.68 mmHg - MS end-diastolic Vmax 1.42 m/sec - PV acceleration time 64.7 msec - Hurtado/IV: Voiding Method Condom Catheter IV Catheter Type [Left Forearm INT / Saline Lock ] IV Catheter Type [Left Triple Lumen Cath Subclavian] IV Catheter Type [Right INT / Saline Lock Antecubital] Active Medications - Current Medications Current Medications: Generic Name Dose Route Start Last Admin Trade Name Freq PRN Reason Stop Dose Admin Acetaminophen 650 mg 12/19/19 12:15 12/24/19 22:31 Tylenol PO 650 mg Q4H PRN Administration Fever >101 Lipase/Protease/Amylase 1 each 12/22/19 10:05 Pancreaze 10,500 Unit FEEDTUBE PRN PRN For Clogged Feeding Tube Ascorbic Acid 500 mg 12/19/19 13:00 12/27/19 09:09 Vitamin C PO 500 mg Q12HR NIKOLAS Administration Atorvastatin Calcium 20 mg 12/19/19 22:00 12/26/19 22:27 Lipitor PO 20 mg QHS NIKOLAS Administration Bismuth Subsalicylate 524 mg 12/19/19 12:15 Pepto Bismol PO Q6H PRN Diarrhea Citalopram Hydrobromide 30 mg 12/19/19 14:00 12/27/19 09:06 Celexa PO 30 mg DAILY NIKOLAS Administration Ferrous Sulfate 308 mg 12/20/19 22:00 12/27/19 09:06 Ferrous Sulfate FEEDTUBE 308 mg BID NIKOLAS Administration Hydrophilic Ointment 1 applic 12/19/19 10:35 Vaseline Lip Therapy TP Q2HR PRN Dry Lips Ceftriaxone Sodium 2 gm in 100 mls @ 200 mls/hr 12/27/19 12:00 Rocephin/Ns 2 Gm/100 Ml IV Q24HR NIKOLAS Protocol Lansoprazole 30 mg 12/23/19 10:00 12/27/19 09:06 Prevacid Solutab FEEDTUBE 30 mg BID NIKOLAS Administration Latanoprost 1 drops 12/19/19 22:00 12/26/19 22:27 Latanoprost 0.005% OD 1 drops QHS NIKOLAS Administration Lisinopril 10 mg 12/19/19 13:00 12/27/19 09:10 Zestril PO 10 mg QDAY NIKOLAS Administration Magnesium Oxide 400 mg 12/20/19 10:00 12/27/19 09:06 Mag-Ox PO 400 mg QDAY NIKOLAS Administration Multi-Ingred Cream/Lotion/Oil/Oint 1 applic 12/19/19 10:35 Artificial Tears Ophth Oint OU Q4HR PRN Dry Eye(s) Quetiapine Fumarate 50 mg 12/19/19 14:00 12/27/19 15:20 Seroquel PO 50 mg TID NIKOLAS Administration Simple Syrup 15 ml 12/22/19 09:51 Simple Syrup FEEDTUBE PRN PRN Hypoglycemia Simple Syrup 30 ml 12/22/19 10:05 Simple Syrup FEEDTUBE PRN PRN Hypoglycemia Sodium Bicarbonate 325 mg 12/22/19 10:05 Sodium Bicarbonate FEEDTUBE PRN PRN For Clogged Feeding Tube Sodium Chloride 10 ml 12/19/19 22:00 12/27/19 09:08 Sodium Chloride Flush Syringe 10 Ml IV 10 ml BID NIKOLAS Administration Sodium Chloride 10 ml 12/19/19 12:13 Sodium Chloride Flush Syringe 10 Ml IV PRN PRN LINE FLUSH Thiamine HCl 100 mg 12/20/19 10:00 12/27/19 09:06 Vitamin B-1 PO 100 mg DAILY NIKOLAS Administration Timolol Maleate 1 drops 12/19/19 22:00 12/27/19 09:09 Timoptic OU 1 drops BID NIKOLAS Administration Nutrition/Malnutrition Assess - Dietary Evaluation Nutrition/Malnutrition Findings: Nutrition Notes Start: 12/20/19 08:53 Freq: Status: Active Protocol: Document 12/24/19 13:33 LM (Rec: 12/24/19 13:38 LM [email or web address]) Nutrition Notes Initial or Follow up Reassessment Current Diagnosis Acute Kidney Injury,COPD, Diabetes,Hypertension, Respiratory Failure,Stroke Other Pertinent Diagnosis GI bleed, encephalopathy, debility Current Diet Glucerna 1.2 at 65ml/hr Labs/Tests POC glu 179 Pertinent Medications Reviewed Height 5 ft 6 in Weight 76.3 kg Hosmer Body Weight (kg) 64.54 BMI 27.1 Weight Status Overweight Subjective/Other Information Glucerna running at goal and tolerating per RN. Percent of energy/protein needs met: 100%/100% Burn Absent Trauma Absent Current % PO Negligible Minimum of two criteria No physical signs of malnutrition #1 Nutrition Diagnosis Inadequate oral intake Diagnosis Progress(for reassessment Continues documentation) Is patient on ventilator? No Is Patient Ambulatory and/or Out of Bed No REE-([facility]-confined to bed) [phone] Calculation Used for Recommendations [facility] Additional Notes Protein: 60-90g (0.8-1.2g/kg) Fluid: 1 ml/kcal Nutrition Intervention Change Diet Order: TF Nutrition Support: Glucerna 1.2 at 65 ml/hr Flush 200 ml q4h for hypernatremia Flush 100 ml q4h once resolved Kcal 1,872 Protein (gm) 94 Fluid (mL) 1,256 Goal #1 TF tolerance Goal #2 Meet at least 75% of energy and protein needs via TF Anticipated Discharge Needs: TF Follow-Up By: 12/30/19 Additional Comments F/U for TF tolerance
--- NOTE | 2019-12-27 18:29 | Progress Note ---
Assessment and Plan Cultures: Blood culture 12/19/2019 group B strep 4/4 Sputum culture 12/19/2019 group B strep, Proteus mirabilis Blood culture 12/23/2019 no growth A/P:54-year-old man who is a resident of a long term facility with a past medical history of COPD, diabetes, stroke, encephalopathy, debility admitted with UGIB, found to have GBS bacteremia #Strep anginosus bacteremia: Unclear source, possible lung. Continue vancomycin given documented penicillin allergy and patient is non-verbal so unable to discern severity of allergy. TTE no vegetation. #Tracheitis: patient without significant PNA on CXR #Diabetes: tight glycemic control for best outcomes. #Penicillin allergy: non-verbal, unable to properly assess. Recs: -stop vancomycin -start ceftriaxone 2 gm IV q day - has received cefepime in the past w/o reactions -stop levaquin -Discussed with pulm doc re: patient's exposure to COVID-19 patient in the ER. Patient remains asymptomatic, however his facility won't take him back without negative test. Agree with testing for now, though his risk of infection is extremely low. -anticipate to d/c on ceftriaxone 2 g IV q day total 14 days till 01/06/2020. Discussed w nurse case manager Thank for the consult, will continue to follow Juli Fernandez MD Infectious Diseases Senior Corporate Strategy Manager [facility] M [phone] O [phone] Subjective Date of service: 12/27/19 Principal diagnosis: Ac upper GI bleed; Shock; Ac hypoxemic resp failure; DM II; H/O HTN Interval history: More alert temp 100.1 on room air Objective - Exam Narrative Exam: Gen: sleepy in RA Head, Ears, Nose: Normocephalic, atraumatic. Oral: Limited Cardiovascular: Limited evaluation due to PPE shortage Respiratory: prudencio crackles GI: Limited evaluation due to PPE shortage Musculoskeletal: Limited evaluation due to PPE shortage Neurological: Ssleepy - Constitutional Vitals: Vital Signs Temp Pulse Resp BP Pulse Ox 98.5 F 90 19 116/74 100 12/27/19 12:20 12/27/19 12:20 12/27/19 12:20 12/27/19 12:20 12/27/19 12:20 Temperature -Last 24 Hours Temperature 98.5 F Temperature 98.7 F Temperature 98.5 F Temperature 98.7 F Temperature 100.1 F - Labs CBC & Chem 7: 12/27/19 04:32 12/27/19 04:32 Labs: Abnormal lab results 12/26/19 12/27/19 12/27/19 Range/Units 22:42 04:32 04:32 WBC 14.6 H (4.5-11.0) K/mm3 RBC 2.95 L (3.65-5.03) M/mm3 Hgb 7.4 L (11.8-15.2) gm/dl Hct 23.4 L (35.5-45.6) % MCV 79 L (84-94) fl MCH 25 L (28-32) pg RDW 18.4 H (13.2-15.2) % Creatinine 0.7 L (0.8-1.5) mg/dL Glucose 189 H (75-100) mg/dL POC Glucose 174 H (70-105) 12/27/19 Range/Units 05:59 WBC (4.5-11.0) K/mm3 RBC (3.65-5.03) M/mm3 Hgb (11.8-15.2) gm/dl Hct (35.5-45.6) % MCV (84-94) fl MCH (28-32) pg RDW (13.2-15.2) % Creatinine (0.8-1.5) mg/dL Glucose (75-100) mg/dL POC Glucose 183 H (70-105)
[2019-12-27] MEDS: LATANOPROST 0.005% OPHTH SOLN 2.5 ML OD SCH (22:08)
[2019-12-28] MEDS: QUEtiapine 25 MG TAB PO SCH ×3 (08:00→21:29)
[2019-12-28] MEDS: cefTRIAXone/NS 2 GM/100 ML 2 GM/100 ML BAG IV SCH (10:55)
[2019-12-28] MEDS: LANSOPRAZOLE 30 MG SOLUTAB FEEDTUBE SCH ×2 (10:56→21:29)
[2019-12-28] MEDS: ASCORBIC ACID 500 MG TAB PO SCH ×2 (10:56→21:29)
[2019-12-28] MEDS: MAGNESIUM OXIDE 400 MG TAB PO SCH (10:56)
[2019-12-28] MEDS: LISINOPRIL 10 MG TAB PO SCH (10:56)
[2019-12-28] MEDS: FERROUS SULFATE 308 MG (62mg Elemental Iron) / 7 ML ELIXIR FEEDTUBE SCH ×2 (10:56→21:30)
[2019-12-28] MEDS: THIAMINE 100 MG TAB PO SCH (10:56)
[2019-12-28] MEDS: CITALOPRAM 10 MG TAB PO SCH (10:57)
[2019-12-28] MEDS: TIMOLOL 0.5% OPHTH SOLN 5 ML OU SCH ×2 (10:58→21:33)
--- NOTE | 2019-12-28 13:00 | Progress Note ---
Assessment and Plan Acute upper GI bleed Severe Sepsis witrh Shock Acute hypoxemic respiratory failure Diabetes mellitus type 2 Hypertension Metabolic acidosis/lactic acidosis - H&H prn re: G.I. Bleed - continue PPI therapy - complete Rocephin dosing per ID recommendations - [employer] evaluation as he is at risk for overt aspiration - no new issues otherwise; continue care as below - COVID-19 testing pending re: ER exposure - supplemental oxygen as needed to keep O2 sat's > 90% - continue contact and droplet isolation and follow clinically due to COVID-19 exposure - prn bronchodilators with pulmonary hygiene per RT - continue antiinfective's per ID recommendations for bacteremia / sepsis - PT/OT as tolerated - mobility protocols for pressure ulcer prophylaxis - continue accuchecks with glycemic control per SSI for target BG < 180 mg/dl - GI & VTE prophylaxis with PPI & SCD's - Flu & pneumovax addressed per protocol - continue other care per attending / other consultants ... re-evaluate in am & prn Subjective Date of service: 12/28/19 Principal diagnosis: Ac upper GI bleed; Shock; Ac hypoxemic resp failure; DM II; H/O HTN Interval history: Patient is seen today for: Acute upper GI bleed; Severe Sepsis witrh Shock; Acute hypoxemic respiratory failure; DM II; HTN; Metabolic acidosis/lactic acidosis Seen and examined at bedside; 24hour events reviewed; nursing and respiratory care staff consulted; no adverse overnight events reported to me; resting peacefully in bed; awaiting COVID result; no new issues respiratory stahl Objective Vital Signs - 12hr 12/28/19 12/28/19 06:24 10:56 Temperature 99.7 F H Pulse Rate 105 H 71 Respiratory 18 Rate Blood Pressure 112/72 120/63 O2 Sat by Pulse 95 Oximetry Constitutional: no acute distress Eyes: non-icteric ENT: oropharynx moist Neck: supple, no lymphadenopathy, no JVD Effort: normal Ascultation: Bilateral: diminished breath sounds, rhonchi Percussion: Bilateral: not dull Cardiovascular: regular rate and rhythm Gastrointestinal: normoactive bowel sounds, soft, non-tender, non-distended Integumentary: rash Extremities: no cyanosis, no edema, pulses normal Neurologic: pupils equal and round, other (mumbles sometimes appropriate replies to questions) Psychiatric: other (affect flat) CBC and BMP: 12/27/19 04:32 12/27/19 04:32 ABG, PT/INR, D-dimer: ABG ABG pH 7.432 pH Units (7.350-7.450) 12/20/19 12:15 ABG pCO2 36.0 mm Hg 12/20/19 12:15 ABG pO2 150.8 mm Hg (80.0-90.0) H 12/20/19 12:15 ABG O2 Saturation 98.9 % (95.0-99.0) 12/20/19 12:15 PT/INR, D-dimer PT 15.3 Sec. (12.2-14.9) H 12/19/19 09:14 INR 1.19 (0.87-1.13) H 12/19/19 09:14 Abnormal lab findings: Abnormal Labs 12/19/19 12/19/19 12/19/19 09:10 09:14 09:14 WBC 12.1 H RBC Hgb 10.0 L Hct 32.3 L MCV 81 L MCH 25 L MCHC 31 L RDW 17.7 H Lymph % (Auto) Quay % (Auto) Quay # 0.9 H Seg Neutrophils % 78.2 H Seg Neutrophils # 9.5 H PT 15.3 H INR 1.19 H ABG pH ABG pO2 ABG HCO3 ABG O2 Saturation ABG Base Excess ABG Hemoglobin Sodium Potassium Chloride Carbon Dioxide BUN Creatinine Glucose POC Glucose Lactic Acid Calcium Albumin Vancomycin Trough Crossmatch See Detail 12/19/19 12/19/19 12/19/19 09:14 09:14 10:05 WBC RBC Hgb Hct MCV MCH MCHC RDW Lymph % (Auto) Quay % (Auto) Quay # Seg Neutrophils % Seg Neutrophils # PT INR ABG pH ABG pO2 ABG HCO3 ABG O2 Saturation ABG Base Excess ABG Hemoglobin Sodium Potassium Chloride Carbon Dioxide 20 L BUN 55 H Creatinine Glucose 222 H POC Glucose 212 H Lactic Acid 3.10 H* Calcium Albumin 3.4 L Vancomycin Trough Crossmatch 12/19/19 12/19/19 12/19/19 10:30 12:30 15:55 WBC RBC Hgb Hct MCV MCH MCHC RDW Lymph % (Auto) Quay % (Auto) Quay # Seg Neutrophils % Seg Neutrophils # PT INR ABG pH 7.277 L ABG pO2 195.1 H ABG HCO3 19.2 L ABG O2 Saturation 99.2 H ABG Base Excess -7.1 L ABG Hemoglobin 9.4 L Sodium Potassium Chloride Carbon Dioxide BUN Creatinine Glucose POC Glucose Lactic Acid 2.80 H* 5.10 H* Calcium Albumin Vancomycin Trough Crossmatch 12/20/19 12/20/19 12/20/19 04:20 04:59 04:59 WBC 11.3 H RBC 3.21 L Hgb 8.0 L Hct 26.0 L D MCV 81 L MCH 25 L MCHC 31 L RDW 17.7 H Lymph % (Auto) 12.2 L Quay % (Auto) 11.1 H Quay # 1.2 H Seg Neutrophils % 76.5 H Seg Neutrophils # 8.6 H PT INR ABG pH ABG pO2 139.7 H ABG HCO3 ABG O2 Saturation ABG Base Excess ABG Hemoglobin 9.2 L Sodium 147 H Potassium Chloride 113.7 H Carbon Dioxide BUN 29 H Creatinine 0.6 L D Glucose 172 H POC Glucose Lactic Acid Calcium Albumin Vancomycin Trough Crossmatch 12/20/19 12/21/19 12/21/19 12:15 04:38 04:38 WBC RBC 2.55 L Hgb 6.5 L Hct 20.9 L MCV 82 L MCH 26 L MCHC 31 L RDW 18.1 H Lymph % (Auto) Quay % (Auto) 10.8 H Quay # 0.9 H Seg Neutrophils % 70.8 H Seg Neutrophils # PT INR ABG pH ABG pO2 150.8 H ABG HCO3 ABG O2 Saturation ABG Base Excess ABG Hemoglobin 5.5 L Sodium 149 H Potassium 3.5 L Chloride 114.9 H Carbon Dioxide BUN 21 H Creatinine 0.5 L Glucose 114 H POC Glucose Lactic Acid Calcium Albumin Vancomycin Trough Crossmatch 12/21/19 12/22/19 12/22/19 23:02 10:34 10:34 WBC RBC 3.24 L Hgb 7.7 L 8.4 L Hct 24.8 L 27.0 L MCV 83 L MCH 26 L MCHC 31 L RDW 17.7 H Lymph % (Auto) Quay % (Auto) Quay # Seg Neutrophils % Seg Neutrophils # PT INR ABG pH ABG pO2 ABG HCO3 ABG O2 Saturation ABG Base Excess ABG Hemoglobin Sodium 147 H Potassium Chloride 112.3 H Carbon Dioxide 20 L BUN Creatinine 0.5 L Glucose 102 H POC Glucose Lactic Acid Calcium Albumin Vancomycin Trough Crossmatch 12/22/19 12/22/19 12/22/19 11:58 18:15 23:47 WBC RBC Hgb Hct MCV MCH MCHC RDW Lymph % (Auto) Quay % (Auto) Quay # Seg Neutrophils % Seg Neutrophils # PT INR ABG pH ABG pO2 ABG HCO3 ABG O2 Saturation ABG Base Excess ABG Hemoglobin Sodium Potassium Chloride Carbon Dioxide BUN Creatinine Glucose POC Glucose 126 H 114 H 121 H Lactic Acid Calcium Albumin Vancomycin Trough Crossmatch 12/23/19 12/23/19 12/23/19 05:46 06:38 06:38 WBC RBC 2.94 L Hgb 7.6 L Hct 23.8 L MCV 81 L MCH 26 L MCHC RDW 17.0 H Lymph % (Auto) Quay % (Auto) Quay # Seg Neutrophils % Seg Neutrophils # PT INR ABG pH ABG pO2 ABG HCO3 ABG O2 Saturation ABG Base Excess ABG Hemoglobin Sodium Potassium 3.3 L Chloride 107.5 H Carbon Dioxide BUN Creatinine 0.4 L Glucose 132 H POC Glucose 124 H Lactic Acid Calcium 8.1 L Albumin Vancomycin Trough Crossmatch 12/23/19 12/23/19 12/24/19 15:54 20:50 00:06 WBC RBC Hgb Hct MCV MCH MCHC RDW Lymph % (Auto) Quay % (Auto) Quay # Seg Neutrophils % Seg Neutrophils # PT INR ABG pH ABG pO2 ABG HCO3 ABG O2 Saturation ABG Base Excess ABG Hemoglobin Sodium Potassium Chloride Carbon Dioxide BUN Creatinine Glucose POC Glucose 150 H 135 H Lactic Acid Calcium Albumin Vancomycin Trough 21.4 H Crossmatch 12/24/19 12/24/19 12/25/19 05:34 18:28 05:31 WBC RBC Hgb Hct MCV MCH MCHC RDW Lymph % (Auto) Quay % (Auto) Quay # Seg Neutrophils % Seg Neutrophils # PT INR ABG pH ABG pO2 ABG HCO3 ABG O2 Saturation ABG Base Excess ABG Hemoglobin Sodium Potassium Chloride Carbon Dioxide BUN Creatinine Glucose POC Glucose 179 H 156 H 179 H Lactic Acid Calcium Albumin Vancomycin Trough Crossmatch 12/25/19 12/26/19 12/26/19 17:50 05:00 05:00 WBC 16.9 H RBC 2.91 L Hgb 7.3 L Hct 22.9 L MCV 79 L MCH 25 L MCHC RDW 17.7 H Lymph % (Auto) Quay % (Auto) Quay # Seg Neutrophils % Seg Neutrophils # PT INR ABG pH ABG pO2 ABG HCO3 ABG O2 Saturation ABG Base Excess ABG Hemoglobin Sodium 135 L D Potassium 3.1 L Chloride 96.6 L Carbon Dioxide BUN 7 L Creatinine 0.5 L Glucose 180 H POC Glucose 211 H Lactic Acid Calcium 8.0 L Albumin Vancomycin Trough Crossmatch 12/26/19 12/26/19 12/27/19 16:57 22:42 04:32 WBC 14.6 H RBC 2.95 L Hgb 7.4 L Hct 23.4 L MCV 79 L MCH 25 L MCHC RDW 18.4 H Lymph % (Auto) Quay % (Auto) Quay # Seg Neutrophils % Seg Neutrophils # PT INR ABG pH ABG pO2 ABG HCO3 ABG O2 Saturation ABG Base Excess ABG Hemoglobin Sodium Potassium Chloride Carbon Dioxide BUN Creatinine Glucose POC Glucose 117 H 174 H Lactic Acid Calcium Albumin Vancomycin Trough Crossmatch 12/27/19 12/27/19 04:32 05:59 WBC RBC Hgb Hct MCV MCH MCHC RDW Lymph % (Auto) Quay % (Auto) Quay # Seg Neutrophils % Seg Neutrophils # PT INR ABG pH ABG pO2 ABG HCO3 ABG O2 Saturation ABG Base Excess ABG Hemoglobin Sodium Potassium Chloride Carbon Dioxide BUN Creatinine 0.7 L Glucose 189 H POC Glucose 183 H Lactic Acid Calcium Albumin Vancomycin Trough Crossmatch Allied health notes reviewed: nursing
--- NOTE | 2019-12-28 14:45 | Progress Note ---
Assessment and Plan Assessment and plan: Acute upper GI bleed. Patient underwent endoscopy which revealed esophagitis in the lower third of the esophagus. There was a cratered, clean based ulcer in the incisura of the stomach. No high risk bleeding stigmata was seen. Continue to monitor H&H and transfuse for hemoglobin less than 7. Continue PPI. Acute hypoxic respiratory failure. Cont. O2 to maintain sats Diabetes mellitus type 2. Continue Accu-Cheks and sliding scale insulin. Hypertension. Patient actually hypotensive given the bleed. Metabolic acidosis/lactic acidosis. Etiology likely secondary to hypotension/hypoperfusion from GI bleed. Patient with no obvious signs of infection. Patient remains asymptomatic, however his facility won't take him back without negative test. Agree with testing for now, though his risk of infection is extremely low. -anticipate to d/c on ceftriaxone 2 g IV q day total 14 days till 01/06/2020. Discussed w bilingual case manager History Interval history: he patient is a 54 yo male presenting from assisted with melena; pt with h/o cva, non-verbal, with chronic peg tube. h/o gastric ulcer from prior endoscopies. upon arrival, pt had large episode of emesis with clots. intubated for airway protection. hypotensive initially and improved with fluid boluses. Hospitalist Physical - Constitutional Vitals: Temp Pulse Resp BP Pulse Ox 99.7 F H 71 18 120/63 95 12/28/19 06:24 12/28/19 10:56 12/28/19 06:24 12/28/19 10:56 12/28/19 06:24 General appearance: Present: other (Orally intubatedon mechanical ventilation) - EENT Eyes: Present: PERRL, EOM intact ENT: hearing intact, clear oral mucosa, dentition normal - Neck Neck: Present: supple, normal ROM - Respiratory Respiratory effort: normal Respiratory: bilateral: CTA - Cardiovascular Rhythm: regular Heart Sounds: Present: S1 & S2. Absent: gallop, rub - Extremities Extremities: no ischemia, No edema, Full ROM - Abdominal General gastrointestinal: soft, non-tender, non-distended, normal bowel sounds - Integumentary Integumentary: Present: clear, warm, dry - Neurologic Neurologic: CNII-XII intact, moves all extremities Results - Labs CBC & Chem 7: 12/27/19 04:32 12/27/19 04:32 Labs: Laboratory Last Values WBC 14.6 K/mm3 (4.5-11.0) H 12/27/19 04:32 RBC 2.95 M/mm3 (3.65-5.03) L 12/27/19 04:32 Hgb 7.4 gm/dl (11.8-15.2) L 12/27/19 04:32 Hct 23.4 % (35.5-45.6) L 12/27/19 04:32 MCV 79 fl (84-94) L 12/27/19 04:32 MCH 25 pg (28-32) L 12/27/19 04:32 MCHC 32 % (32-34) 12/27/19 04:32 RDW 18.4 % (13.2-15.2) H 12/27/19 04:32 Plt Count 266 K/mm3 (140-440) 12/27/19 04:32 Lymph % (Auto) 16.7 % (13.4-35.0) 12/21/19 04:38 [place] % (Auto) 10.8 % (0.0-7.3) H 12/21/19 04:38 Eos % (Auto) 1.2 % (0.0-4.3) 12/21/19 04:38 Baso % (Auto) 0.5 % (0.0-1.8) 12/21/19 04:38 Lymph # 1.4 K/mm3 (1.2-5.4) 12/21/19 04:38 [place] # 0.9 K/mm3 (0.0-0.8) H 12/21/19 04:38 Eos # 0.1 K/mm3 (0.0-0.4) 12/21/19 04:38 Baso # 0.0 K/mm3 (0.0-0.1) 12/21/19 04:38 Seg Neutrophils % 70.8 % (40.0-70.0) H 12/21/19 04:38 Seg Neutrophils # 6.0 K/mm3 (1.8-7.7) 12/21/19 04:38 PT 15.3 Sec. (12.2-14.9) H 12/19/19 09:14 INR 1.19 (0.87-1.13) H 12/19/19 09:14 APTT 26.4 Sec. (24.2-36.6) 12/19/19 09:14 ABG pH 7.432 pH Units (7.350-7.450) 12/20/19 12:15 ABG pCO2 36.0 mm Hg 12/20/19 12:15 ABG pO2 150.8 mm Hg (80.0-90.0) H 12/20/19 12:15 ABG HCO3 23.5 mmol/L (20.0-26.0) 12/20/19 12:15 ABG O2 Saturation 98.9 % (95.0-99.0) 12/20/19 12:15 ABG O2 Content 7.8 (0.0-44) 12/20/19 12:15 ABG Base Excess -0.8 mmol/L (-2.0-3.0) 12/20/19 12:15 ABG Hemoglobin 5.5 gm/dl (14.0-18.0) L 12/20/19 12:15 ABG Carboxyhemoglobin 1.9 % (0.0-5.0) 12/20/19 12:15 ABG Methemoglobin 0.5 % (0.0-1.5) 12/20/19 12:15 Oxyhemoglobin 96.5 % (95.0-99.0) 12/20/19 12:15 FiO2 35 % 12/20/19 12:15 Sodium 137 mmol/L (137-145) 12/27/19 04:32 Potassium 4.0 mmol/L (3.6-5.0) D 12/27/19 04:32 Chloride 103.3 mmol/L (98-107) 12/27/19 04:32 Carbon Dioxide 23 mmol/L (22-30) 12/27/19 04:32 Anion Gap 15 mmol/L 12/27/19 04:32 BUN 11 mg/dL (9-20) 12/27/19 04:32 Creatinine 0.7 mg/dL (0.8-1.5) L 12/27/19 04:32 Estimated GFR > 60 ml/min 12/27/19 04:32 BUN/Creatinine Ratio 16 % 12/27/19 04:32 Glucose 189 mg/dL (75-100) H 12/27/19 04:32 POC Glucose 183 (70-105) H 12/27/19 05:59 Lactic Acid 5.10 mmol/L (0.7-2.0) H* 12/19/19 15:55 Calcium 8.4 mg/dL (8.4-10.2) 12/27/19 04:32 Magnesium 2.00 mg/dL (1.7-2.3) 12/19/19 09:14 Total Bilirubin 0.20 mg/dL (0.1-1.2) 12/19/19 09:14 AST 13 units/L (5-40) 12/19/19 09:14 ALT 11 units/L (7-56) 12/19/19 09:14 Alkaline Phosphatase 85 units/L (35-129) 12/19/19 09:14 Ammonia 35.0 umol/L (25-60) 12/19/19 09:14 Total Protein 6.6 g/dL (6.3-8.2) 12/19/19 09:14 Albumin 3.4 g/dL (3.9-5) L 12/19/19 09:14 Albumin/Globulin Ratio 1.1 % 12/19/19 09:14 Lipase 49 units/L (13-60) 12/19/19 09:14 Urine Color Yellow (Yellow) 12/19/19 10:02 Urine Turbidity Slightly-cloudy (Clear) 12/19/19 10:02 Urine pH 5.0 (5.0-7.0) 12/19/19 10:02 Ur Specific [place] 1.024 (1.003-1.030) 12/19/19 10:02 Urine Protein 30 mg/dl mg/dL (Negative) 12/19/19 10:02 Urine Glucose (UA) 50 mg/dL (Negative) 12/19/19 10:02 Urine Ketones Neg mg/dL (Negative) 12/19/19 10:02 Urine Blood Neg (Negative) 12/19/19 10:02 Urine Nitrite Neg (Negative) 12/19/19 10:02 Urine Bilirubin Neg (Negative) 12/19/19 10:02 Urine Urobilinogen < 2.0 mg/dL (<2.0) 12/19/19 10:02 Ur Leukocyte Esterase Neg (Negative) 12/19/19 10:02 Urine WBC (Auto) 2.0 /HPF (0.0-6.0) 12/19/19 10:02 Urine RBC (Auto) 1.0 /HPF (0.0-6.0) 12/19/19 10:02 U Epithel Cells (Auto) < 1.0 /HPF (0-13.0) 12/19/19 10:02 Hyaline Casts 11 /LPF 12/19/19 10:02 Urine Mucus 2+ /HPF 12/19/19 10:02 Urine Sperm Few /HPF (ASSEMBLY TECHNICIAN) 12/19/19 10:02 Vancomycin Trough 13.0 ug/mL (5.0-20.0) 12/27/19 20:46 Random Vancomycin 7.5 ug/mL (0-40.0) 12/21/19 23:02 Blood Type O POSITIVE 12/19/19 09:10 Antibody Screen Negative 12/19/19 09:10 Crossmatch See Detail 12/19/19 09:10 Microbiology: Microbiology 12/23/19 00:41 Peripheral/Venous Blood Culture - Final NO GROWTH AFTER 5 DAYS 12/22/19 23:56 Peripheral/Venous Blood Culture - Final NO GROWTH AFTER 5 DAYS - Diagnostic Impressions Diagnostic Impressions: Echocardiogram 12/22/19 17:57 Transthoracic Echocardiogram Indication: R/O Endocarditis BP: 133/79 HR: 81 Conclusions *Global left ventricular systolic function is normal. *Mild concentric left ventricular hypertrophy is observed. *The estimated ejection fraction is 50-55%. *Abnormal left ventricular diastolic filling is observed, consistent with impaired relaxation. *The right ventricular global systolic function is mildly reduced. *There is no evidence of aortic regurgitation. *There is trace of mitral regurgitation. *There is trace tricuspid regurgitation. *The right ventricular systolic pressure is calculated at 38 mmHg. *There is trace pulmonic regurgitation. Findings Left Ventricle: The left ventricular chamber size is normal. Mild concentric left ventricular hypertrophy is observed. Global left ventricular systolic function is normal. The estimated ejection fraction is 50-55%. Abnormal left ventricular diastolic filling is observed, consistent with impaired relaxation. Left Atrium: The left atrial chamber size is normal. Right Ventricle: The right ventricular cavity size is normal. The right ventricular global systolic function is mildly reduced. Right Atrium: The right atrial cavity size is normal. Aortic Valve: The aortic valve is trileaflet. There is no evidence of aortic regurgitation. Mitral Valve: The mitral valve leaflets are mildly thickened. There is trace of mitral regurgitation. Tricuspid Valve: The tricuspid valve leaflets are normal. There is trace tricuspid regurgitation. The right ventricular systolic pressure is calculated at 38 mmHg. Pulmonic Valve: The pulmonic valve appears normal. There is trace pulmonic regurgitation. Pericardium: There is no pericardial effusion. Aorta: There is no dilatation of the ascending aorta. There is no dilatation of the aortic root. Venous: The inferior vena cava appears normal in size. There is a greater than 50% respiratory change in the inferior vena cava dimension. Measurements Chambers 2D Name Value Normal Range IVSd (2D) 1.33 cm (0.6 - 1.1) LVPWd (2D) 1.29 cm (0.6 - 1.1) LVIDd (2D) 3.1 cm (3.7 - 5.6) LVIDs (2D) 2.26 cm (2 - 3.8) LV FS (2D) 27.25 % - EF Teichholz (2D) 54.5 % - Ao root diameter (2D) 2.84 cm (2 - 3.7) Volumes/Mass Name Value Normal Range LA ESV SP 4CH (A/L) 20.15 ml - LA ESV SP 2CH (A/L) 33.14 ml - LA ESV BP (A/L) 28.63 ml - LA ESV BP (A/L) index 15.39 ml/m2 - LA ESV SP 4CH (MOD) 18.4 ml - LA ESV SP 2CH (MOD) 29.82 ml - LA ESV BP (MOD) 25.89 ml - LA ESV BP (MOD) index 13.92 ml/m2 - Diastolic/Systolic Function Name Value Normal Range MV E-wave Vmax 1.1 m/sec - MV deceleration time 171.63 msec - MV A-wave Vmax 1.18 m/sec - MV E:A ratio 0.94 ratio - Aortic Valve Name Value Normal Range AV Vmax 1.37 m/sec - AV VTI 26.97 cm - AV peak gradient 7.5 mmHg - AV mean gradient 3.79 mmHg - LVOT diameter 2.03 cm - LVOT Vmax 1.09 m/sec - LVOT VTI 23.3 cm - LVOT peak gradient 4.76 mmHg - LVOT mean gradient 2.45 mmHg - SV LVOT 75.15 ml - DARINEL (continuity Vmax) 2.57 cm2 - DARINEL (continuity VTI) 2.79 cm2 - Tricuspid Valve Name Value Normal Range TR Vmax 2.96 m/sec - TR peak gradient 35 mmHg - RAP 3 mmHg - RVSP 38 mmHg - IVC diameter 1.78 cm (1.2 - 2.3) Pulmonic Valve/Qp:Qs Name Value Normal Range PV Vmax 0.96 m/sec - PV peak gradient 3.68 mmHg - ND end-diastolic Vmax 1.42 m/sec - PV acceleration time 64.7 msec - NDUM: 12/24/19 1217 Amended Report Transthoracic Echocardiogram Indication: R/O Endocarditis BP: 133/79 HR: 81 Conclusions *Global left ventricular systolic function is normal. *Mild concentric left ventricular hypertrophy is observed. *The estimated ejection fraction is 50-55%. *Abnormal left ventricular diastolic filling is observed, consistent with impaired relaxation. *The right ventricular global systolic function is mildly reduced. *There is no evidence of aortic regurgitation. *There is trace of mitral regurgitation. *There is trace tricuspid regurgitation. *The right ventricular systolic pressure is calculated at 38 mmHg. *There is trace pulmonic regurgitation. *No obvious endocardtis noted on mitral and aortic and tricuspid valve, if clinically indicated suggest JUAN Findings Left Ventricle: The left ventricular chamber size is normal. Mild concentric left ventricular hypertrophy is observed. Global left ventricular systolic function is normal. The estimated ejection fraction is 50-55%. Abnormal left ventricular diastolic filling is observed, consistent with impaired relaxation. Left Atrium: The left atrial chamber size is normal. Right Ventricle: The right ventricular cavity size is normal. The right ventricular global systolic function is mildly reduced. Right Atrium: The right atrial cavity size is normal. Aortic Valve: The aortic valve is trileaflet. There is no evidence of aortic regurgitation. Mitral Valve: The mitral valve leaflets are mildly thickened. There is trace of mitral regurgitation. Tricuspid Valve: The tricuspid valve leaflets are normal. There is trace tricuspid regurgitation. The right ventricular systolic pressure is calculated at 38 mmHg. Pulmonic Valve: The pulmonic valve appears normal. There is trace pulmonic regurgitation. Pericardium: There is no pericardial effusion. Aorta: There is no dilatation of the ascending aorta. There is no dilatation of the aortic root. Venous: The inferior vena cava appears normal in size. There is a greater than 50% respiratory change in the inferior vena cava dimension. Measurements Chambers 2D Name Value Normal Range IVSd (2D) 1.33 cm (0.6 - 1.1) LVPWd (2D) 1.29 cm (0.6 - 1.1) LVIDd (2D) 3.1 cm (3.7 - 5.6) LVIDs (2D) 2.26 cm (2 - 3.8) LV FS (2D) 27.25 % - EF Teichholz (2D) 54.5 % - Ao root diameter (2D) 2.84 cm (2 - 3.7) Volumes/Mass Name Value Normal Range LA ESV SP 4CH (A/L) 20.15 ml - LA ESV SP 2CH (A/L) 33.14 ml - LA ESV BP (A/L) 28.63 ml - LA ESV BP (A/L) index 15.39 ml/m2 - LA ESV SP 4CH (MOD) 18.4 ml - LA ESV SP 2CH (MOD) 29.82 ml - LA ESV BP (MOD) 25.89 ml - LA ESV BP (MOD) index 13.92 ml/m2 - Diastolic/Systolic Function Name Value Normal Range MV E-wave Vmax 1.1 m/sec - MV deceleration time 171.63 msec - MV A-wave Vmax 1.18 m/sec - MV E:A ratio 0.94 ratio - Aortic Valve Name Value Normal Range AV Vmax 1.37 m/sec - AV VTI 26.97 cm - AV peak gradient 7.5 mmHg - AV mean gradient 3.79 mmHg - LVOT diameter 2.03 cm - LVOT Vmax 1.09 m/sec - LVOT VTI 23.3 cm - LVOT peak gradient 4.76 mmHg - LVOT mean gradient 2.45 mmHg - SV LVOT 75.15 ml - DARINEL (continuity Vmax) 2.57 cm2 - DARINEL (continuity VTI) 2.79 cm2 - Tricuspid Valve Name Value Normal Range TR Vmax 2.96 m/sec - TR peak gradient 35 mmHg - RAP 3 mmHg - RVSP 38 mmHg - IVC diameter 1.78 cm (1.2 - 2.3) Pulmonic Valve/Qp:Qs Name Value Normal Range PV Vmax 0.96 m/sec - PV peak gradient 3.68 mmHg - ND end-diastolic Vmax 1.42 m/sec - PV acceleration time 64.7 msec - [place]/IV: Voiding Method Condom Catheter IV Catheter Type [Left Forearm INT / Saline Lock ] IV Catheter Type [Left Triple Lumen Cath Subclavian] IV Catheter Type [Right INT / Saline Lock Antecubital] Active Medications - Current Medications Current Medications: Generic Name Dose Route Start Last Admin Trade Name Freq PRN Reason Stop Dose Admin Acetaminophen 650 mg 12/19/19 12:15 12/24/19 22:31 Tylenol PO 650 mg Q4H PRN Administration Fever >101 Lipase/Protease/Amylase 1 each 12/22/19 10:[address] 10,500 Unit FEEDTUBE PRN PRN For Clogged Feeding Tube Ascorbic Acid 500 mg 12/19/19 13:00 12/28/19 10:56 Vitamin C PO 500 mg Q12HR NIKOLAS Administration Atorvastatin Calcium 20 mg 12/19/19 22:00 12/27/19 22:07 Lipitor PO 20 mg QHS NIKOLAS Administration Bismuth Subsalicylate 524 mg 12/19/19 12:15 Pepto Bismol PO Q6H PRN Diarrhea Citalopram Hydrobromide 30 mg 12/19/19 14:00 12/28/19 10:57 Celexa PO 30 mg DAILY NIKOLAS Administration Ferrous Sulfate 308 mg 12/20/19 22:00 12/28/19 10:56 Ferrous Sulfate FEEDTUBE 308 mg BID NIKOLAS Administration Hydrophilic Ointment 1 applic 12/19/19 10:35 Vaseline Lip Therapy TP Q2HR PRN Dry Lips Ceftriaxone Sodium 2 gm in 100 mls @ 200 mls/hr 12/28/19 10:00 12/28/19 10:55 Rocephin/Ns 2 Gm/100 Ml IV 01/06/20 10:29 200 mls/hr Q24HR NIKOLAS Administration Lansoprazole 30 mg 12/23/19 10:00 12/28/19 10:56 Prevacid Solutab FEEDTUBE 30 mg BID NIKOLAS Administration Latanoprost 1 drops 12/19/19 22:00 12/27/19 22:08 Latanoprost 0.005% OD 1 drops QHS NIKOLAS Administration Lisinopril 10 mg 12/19/19 13:00 12/28/19 10:56 Zestril PO 10 mg QDAY NIKOLAS Administration Magnesium Oxide 400 mg 12/20/19 10:00 12/28/19 10:56 Mag-Ox PO 400 mg QDAY NIKOLAS Administration Multi-Ingred Cream/Lotion/Oil/Oint 1 applic 12/19/19 10:35 Artificial Tears Ophth Oint OU Q4HR PRN Dry Eye(s) Quetiapine Fumarate 50 mg 12/19/19 14:00 12/28/19 08:00 Seroquel PO 50 mg TID NIKOLAS Administration Simple Syrup 15 ml 12/22/19 09:51 Simple Syrup FEEDTUBE PRN PRN Hypoglycemia Simple Syrup 30 ml 12/22/19 10:05 Simple Syrup FEEDTUBE PRN PRN Hypoglycemia Sodium Bicarbonate 325 mg 12/22/19 10:05 Sodium Bicarbonate FEEDTUBE PRN PRN For Clogged Feeding Tube Sodium Chloride 10 ml 12/19/19 22:00 12/28/19 10:57 Sodium Chloride Flush Syringe 10 Ml IV 10 ml BID NIKOLAS Administration Sodium Chloride 10 ml 12/19/19 12:13 Sodium Chloride Flush Syringe 10 Ml IV PRN PRN LINE FLUSH Thiamine HCl 100 mg 12/20/19 10:00 12/28/19 10:56 Vitamin B-1 PO 100 mg DAILY NIKOLAS Administration Timolol Maleate 1 drops 12/19/19 22:00 12/28/19 10:58 Timoptic OU 1 drops BID NIKOLAS Administration Nutrition/Malnutrition Assess - Dietary Evaluation Nutrition/Malnutrition Findings: Nutrition Notes Start: 12/20/19 08:53 Freq: Status: Active Protocol: Document 12/24/19 13:33 LM (Rec: 12/24/19 13:38 LM [id number]) Nutrition Notes Initial or Follow up Reassessment Current Diagnosis Acute Kidney Injury,COPD, Diabetes,Hypertension, Respiratory Failure,Stroke Other Pertinent Diagnosis GI bleed, encephalopathy, debility Current Diet Glucerna 1.2 at 65ml/hr Labs/Tests POC glu 179 Pertinent Medications Reviewed Height 5 ft 6 in Weight 76.3 kg [place] Body Weight (kg) 64.54 BMI 27.1 Weight Status Overweight Subjective/Other Information Glucerna running at goal and tolerating per RN. Percent of energy/protein needs met: 100%/100% Burn Absent Trauma Absent Current % PO Negligible Minimum of two criteria No physical signs of malnutrition #1 Nutrition Diagnosis Inadequate oral intake Diagnosis Progress(for reassessment Continues documentation) Is patient on ventilator? No Is Patient Ambulatory and/or Out of Bed No REE-([facility]-confined to bed) [phone] Calculation Used for Recommendations [facility] Additional Notes Protein: 60-90g (0.8-1.2g/kg) Fluid: 1 ml/kcal Nutrition Intervention Change Diet Order: TF Nutrition Support: Glucerna 1.2 at 65 ml/hr Flush 200 ml q4h for hypernatremia Flush 100 ml q4h once resolved Kcal 1,872 Protein (gm) 94 Fluid (mL) 1,256 Goal #1 TF tolerance Goal #2 Meet at least 75% of energy and protein needs via TF Anticipated Discharge Needs: TF Follow-Up By: 12/30/19 Additional Comments F/U for TF tolerance
[2019-12-28] MEDS: ACETAMINOPHEN 325 MG TAB PO PRN (16:09)
[2019-12-28] MEDS: LATANOPROST 0.005% OPHTH SOLN 2.5 ML OD SCH (21:32)
--- NOTE | 2019-12-29 08:42 | Progress Note ---
Assessment and Plan Assessment and plan: Acute upper GI bleed. Patient underwent endoscopy which revealed esophagitis in the lower third of the esophagus. There was a cratered, clean based ulcer in the incisura of the stomach. No high risk bleeding stigmata was seen. Continue to monitor H&H and transfuse for hemoglobin less than 7. Continue PPI. Acute hypoxic respiratory failure. Cont. O2 to maintain sats Diabetes mellitus type 2. Continue Accu-Cheks and sliding scale insulin. Hypertension. Patient actually hypotensive given the bleed. Metabolic acidosis/lactic acidosis. Etiology likely secondary to hypotension/hypoperfusion from GI bleed. Patient with no obvious signs of infection. Patient remains asymptomatic, however his facility won't take him back without negative test. Agree with testing for now, though his risk of infection is extremely low. -anticipate to d/c on ceftriaxone 2 g IV q day total 14 days till 01/06/2020. Discussed w classification case manager 12/29/2019. Patient still with low-grade fever yesterday of 100.5. Patient currently satting 98% on room air. Patient continues to remain asymptomatic, however his facility won't take him back without negative test. Await for negative COVID-19 test. History Interval history: he patient is a 54 yo male presenting from [facility] with [facility]; pt with h/o cva, non-verbal, with chronic peg tube. h/o gastric ulcer from prior endoscopies. upon arrival, pt had large episode of emesis with clots. intubated for airway protection. hypotensive initially and improved with fluid boluses. Due to lack of resources with insufficient PPE and in an effort to preserve PPE that we have remaining, patient's visit was done by telephone. Hospitalist Physical - Constitutional Vitals: Temp Pulse Resp BP Pulse Ox 97.8 F 96 H 20 138/87 98 12/29/19 06:15 12/29/19 06:15 12/29/19 06:15 12/29/19 06:15 12/29/19 07:48 General appearance: Present: other (Orally intubatedon mechanical ventilation) - EENT Eyes: Present: PERRL, EOM intact ENT: hearing intact, clear oral mucosa, dentition normal - Neck Neck: Present: supple, normal ROM - Respiratory Respiratory effort: normal Respiratory: bilateral: CTA - Cardiovascular Rhythm: regular Heart Sounds: Present: S1 & S2. Absent: gallop, rub - Extremities Extremities: no ischemia, No edema, Full ROM - Abdominal General gastrointestinal: soft, non-tender, non-distended, normal bowel sounds - Integumentary Integumentary: Present: clear, warm, dry - Neurologic Neurologic: CNII-XII intact, moves all extremities Results - Labs CBC & Chem 7: 12/27/19 04:32 12/27/19 04:32 Labs: Laboratory Last Values WBC 14.6 K/mm3 (4.5-11.0) H 12/27/19 04:32 RBC 2.95 M/mm3 (3.65-5.03) L 12/27/19 04:32 Hgb 7.4 gm/dl (11.8-15.2) L 12/27/19 04:32 Hct 23.4 % (35.5-45.6) L 12/27/19 04:32 MCV 79 fl (84-94) L 12/27/19 04:32 MCH 25 pg (28-32) L 12/27/19 04:32 MCHC 32 % (32-34) 12/27/19 04:32 RDW 18.4 % (13.2-15.2) H 12/27/19 04:32 Plt Count 266 K/mm3 (140-440) 12/27/19 04:32 Lymph % (Auto) 16.7 % (13.4-35.0) 12/21/19 04:38 [place] % (Auto) 10.8 % (0.0-7.3) H 12/21/19 04:38 Eos % (Auto) 1.2 % (0.0-4.3) 12/21/19 04:38 Baso % (Auto) 0.5 % (0.0-1.8) 12/21/19 04:38 Lymph # 1.4 K/mm3 (1.2-5.4) 12/21/19 04:38 [place] # 0.9 K/mm3 (0.0-0.8) H 12/21/19 04:38 Eos # 0.1 K/mm3 (0.0-0.4) 12/21/19 04:38 Baso # 0.0 K/mm3 (0.0-0.1) 12/21/19 04:38 Seg Neutrophils % 70.8 % (40.0-70.0) H 12/21/19 04:38 Seg Neutrophils # 6.0 K/mm3 (1.8-7.7) 12/21/19 04:38 PT 15.3 Sec. (12.2-14.9) H 12/19/19 09:14 INR 1.19 (0.87-1.13) H 12/19/19 09:14 APTT 26.4 Sec. (24.2-36.6) 12/19/19 09:14 ABG pH 7.432 pH Units (7.350-7.450) 12/20/19 12:15 ABG pCO2 36.0 mm Hg 12/20/19 12:15 ABG pO2 150.8 mm Hg (80.0-90.0) H 12/20/19 12:15 ABG HCO3 23.5 mmol/L (20.0-26.0) 12/20/19 12:15 ABG O2 Saturation 98.9 % (95.0-99.0) 12/20/19 12:15 ABG O2 Content 7.8 (0.0-44) 12/20/19 12:15 ABG Base Excess -0.8 mmol/L (-2.0-3.0) 12/20/19 12:15 ABG Hemoglobin 5.5 gm/dl (14.0-18.0) L 12/20/19 12:15 ABG Carboxyhemoglobin 1.9 % (0.0-5.0) 12/20/19 12:15 ABG Methemoglobin 0.5 % (0.0-1.5) 12/20/19 12:15 Oxyhemoglobin 96.5 % (95.0-99.0) 12/20/19 12:15 FiO2 35 % 12/20/19 12:15 Sodium 137 mmol/L (137-145) 12/27/19 04:32 Potassium 4.0 mmol/L (3.6-5.0) D 12/27/19 04:32 Chloride 103.3 mmol/L (98-107) 12/27/19 04:32 Carbon Dioxide 23 mmol/L (22-30) 12/27/19 04:32 Anion Gap 15 mmol/L 12/27/19 04:32 BUN 11 mg/dL (9-20) 12/27/19 04:32 Creatinine 0.7 mg/dL (0.8-1.5) L 12/27/19 04:32 Estimated GFR > 60 ml/min 12/27/19 04:32 BUN/Creatinine Ratio 16 % 12/27/19 04:32 Glucose 189 mg/dL (75-100) H 12/27/19 04:32 POC Glucose 212 (70-105) H 12/29/19 06:48 Lactic Acid 5.10 mmol/L (0.7-2.0) H* 12/19/19 15:55 Calcium 8.4 mg/dL (8.4-10.2) 12/27/19 04:32 Magnesium 2.00 mg/dL (1.7-2.3) 12/19/19 09:14 Total Bilirubin 0.20 mg/dL (0.1-1.2) 12/19/19 09:14 AST 13 units/L (5-40) 12/19/19 09:14 ALT 11 units/L (7-56) 12/19/19 09:14 Alkaline Phosphatase 85 units/L (35-129) 12/19/19 09:14 Ammonia 35.0 umol/L (25-60) 12/19/19 09:14 Total Protein 6.6 g/dL (6.3-8.2) 12/19/19 09:14 Albumin 3.4 g/dL (3.9-5) L 12/19/19 09:14 Albumin/Globulin Ratio 1.1 % 12/19/19 09:14 Lipase 49 units/L (13-60) 12/19/19 09:14 Urine Color Yellow (Yellow) 12/19/19 10:02 Urine Turbidity Slightly-cloudy (Clear) 12/19/19 10:02 Urine pH 5.0 (5.0-7.0) 12/19/19 10:02 Ur Specific [place] 1.024 (1.003-1.030) 12/19/19 10:02 Urine Protein 30 mg/dl mg/dL (Negative) 12/19/19 10:02 Urine Glucose (UA) 50 mg/dL (Negative) 12/19/19 10:02 Urine Ketones Neg mg/dL (Negative) 12/19/19 10:02 Urine Blood Neg (Negative) 12/19/19 10:02 Urine Nitrite Neg (Negative) 12/19/19 10:02 Urine Bilirubin Neg (Negative) 12/19/19 10:02 Urine Urobilinogen < 2.0 mg/dL (<2.0) 12/19/19 10:02 Ur Leukocyte Esterase Neg (Negative) 12/19/19 10:02 Urine WBC (Auto) 2.0 /HPF (0.0-6.0) 12/19/19 10:02 Urine RBC (Auto) 1.0 /HPF (0.0-6.0) 12/19/19 10:02 U Epithel Cells (Auto) < 1.0 /HPF (0-13.0) 12/19/19 10:02 Hyaline Casts 11 /LPF 12/19/19 10:02 Urine Mucus 2+ /HPF 12/19/19 10:02 Urine Sperm Few /HPF ([employer]) 12/19/19 10:02 Vancomycin Trough 13.0 ug/mL (5.0-20.0) 12/27/19 20:46 Random Vancomycin 7.5 ug/mL (0-40.0) 12/21/19 23:02 Blood Type O POSITIVE 12/19/19 09:10 Antibody Screen Negative 12/19/19 09:10 Crossmatch See Detail 12/19/19 09:10 - Diagnostic Impressions Diagnostic Impressions: Echocardiogram 12/22/19 17:57 Transthoracic Echocardiogram Indication: R/O Endocarditis BP: 133/79 HR: 81 Conclusions *Global left ventricular systolic function is normal. *Mild concentric left ventricular hypertrophy is observed. *The estimated ejection fraction is 50-55%. *Abnormal left ventricular diastolic filling is observed, consistent with impaired relaxation. *The right ventricular global systolic function is mildly reduced. *There is no evidence of aortic regurgitation. *There is trace of mitral regurgitation. *There is trace tricuspid regurgitation. *The right ventricular systolic pressure is calculated at 38 mmHg. *There is trace pulmonic regurgitation. Findings Left Ventricle: The left ventricular chamber size is normal. Mild concentric left ventricular hypertrophy is observed. Global left ventricular systolic function is normal. The estimated ejection fraction is 50-55%. Abnormal left ventricular diastolic filling is observed, consistent with impaired relaxation. Left Atrium: The left atrial chamber size is normal. Right Ventricle: The right ventricular cavity size is normal. The right ventricular global systolic function is mildly reduced. Right Atrium: The right atrial cavity size is normal. Aortic Valve: The aortic valve is trileaflet. There is no evidence of aortic regurgitation. Mitral Valve: The mitral valve leaflets are mildly thickened. There is trace of mitral regurgitation. Tricuspid Valve: The tricuspid valve leaflets are normal. There is trace tricuspid regurgitation. The right ventricular systolic pressure is calculated at 38 mmHg. Pulmonic Valve: The pulmonic valve appears normal. There is trace pulmonic regurgitation. Pericardium: There is no pericardial effusion. Aorta: There is no dilatation of the ascending aorta. There is no dilatation of the aortic root. Venous: The inferior vena cava appears normal in size. There is a greater than 50% respiratory change in the inferior vena cava dimension. Measurements Chambers 2D Name Value Normal Range IVSd (2D) 1.33 cm (0.6 - 1.1) LVPWd (2D) 1.29 cm (0.6 - 1.1) LVIDd (2D) 3.1 cm (3.7 - 5.6) LVIDs (2D) 2.26 cm (2 - 3.8) LV FS (2D) 27.25 % - EF Teichholz (2D) 54.5 % - Ao root diameter (2D) 2.84 cm (2 - 3.7) Volumes/Mass Name Value Normal Range LA ESV SP 4CH (A/L) 20.15 ml - LA ESV SP 2CH (A/L) 33.14 ml - LA ESV BP (A/L) 28.63 ml - LA ESV BP (A/L) index 15.39 ml/m2 - LA ESV SP 4CH (MOD) 18.4 ml - LA ESV SP 2CH (MOD) 29.82 ml - LA ESV BP (MOD) 25.89 ml - LA ESV BP (MOD) index 13.92 ml/m2 - Diastolic/Systolic Function Name Value Normal Range MV E-wave Vmax 1.1 m/sec - MV deceleration time 171.63 msec - MV A-wave Vmax 1.18 m/sec - MV E:A ratio 0.94 ratio - Aortic Valve Name Value Normal Range AV Vmax 1.37 m/sec - AV VTI 26.97 cm - AV peak gradient 7.5 mmHg - AV mean gradient 3.79 mmHg - LVOT diameter 2.03 cm - LVOT Vmax 1.09 m/sec - LVOT VTI 23.3 cm - LVOT peak gradient 4.76 mmHg - LVOT mean gradient 2.45 mmHg - SV LVOT 75.15 ml - DARINEL (continuity Vmax) 2.57 cm2 - DARINEL (continuity VTI) 2.79 cm2 - Tricuspid Valve Name Value Normal Range TR Vmax 2.96 m/sec - TR peak gradient 35 mmHg - RAP 3 mmHg - RVSP 38 mmHg - IVC diameter 1.78 cm (1.2 - 2.3) Pulmonic Valve/Qp:Qs Name Value Normal Range PV Vmax 0.96 m/sec - PV peak gradient 3.68 mmHg - AL end-diastolic Vmax 1.42 m/sec - PV acceleration time 64.7 msec - NDUM: 12/24/19 1217 Amended Report Transthoracic Echocardiogram Indication: R/O Endocarditis BP: 133/79 HR: 81 Conclusions *Global left ventricular systolic function is normal. *Mild concentric left ventricular hypertrophy is observed. *The estimated ejection fraction is 50-55%. *Abnormal left ventricular diastolic filling is observed, consistent with impaired relaxation. *The right ventricular global systolic function is mildly reduced. *There is no evidence of aortic regurgitation. *There is trace of mitral regurgitation. *There is trace tricuspid regurgitation. *The right ventricular systolic pressure is calculated at 38 mmHg. *There is trace pulmonic regurgitation. *No obvious endocardtis noted on mitral and aortic and tricuspid valve, if clinically indicated suggest JUAN Findings Left Ventricle: The left ventricular chamber size is normal. Mild concentric left ventricular hypertrophy is observed. Global left ventricular systolic function is normal. The estimated ejection fraction is 50-55%. Abnormal left ventricular diastolic filling is observed, consistent with impaired relaxation. Left Atrium: The left atrial chamber size is normal. Right Ventricle: The right ventricular cavity size is normal. The right ventricular global systolic function is mildly reduced. Right Atrium: The right atrial cavity size is normal. Aortic Valve: The aortic valve is trileaflet. There is no evidence of aortic regurgitation. Mitral Valve: The mitral valve leaflets are mildly thickened. There is trace of mitral regurgitation. Tricuspid Valve: The tricuspid valve leaflets are normal. There is trace tricuspid regurgitation. The right ventricular systolic pressure is calculated at 38 mmHg. Pulmonic Valve: The pulmonic valve appears normal. There is trace pulmonic regurgitation. Pericardium: There is no pericardial effusion. Aorta: There is no dilatation of the ascending aorta. There is no dilatation of the aortic root. Venous: The inferior vena cava appears normal in size. There is a greater than 50% respiratory change in the inferior vena cava dimension. Measurements Chambers 2D Name Value Normal Range IVSd (2D) 1.33 cm (0.6 - 1.1) LVPWd (2D) 1.29 cm (0.6 - 1.1) LVIDd (2D) 3.1 cm (3.7 - 5.6) LVIDs (2D) 2.26 cm (2 - 3.8) LV FS (2D) 27.25 % - EF Teichholz (2D) 54.5 % - Ao root diameter (2D) 2.84 cm (2 - 3.7) Volumes/Mass Name Value Normal Range LA ESV SP 4CH (A/L) 20.15 ml - LA ESV SP 2CH (A/L) 33.14 ml - LA ESV BP (A/L) 28.63 ml - LA ESV BP (A/L) index 15.39 ml/m2 - LA ESV SP 4CH (MOD) 18.4 ml - LA ESV SP 2CH (MOD) 29.82 ml - LA ESV BP (MOD) 25.89 ml - LA ESV BP (MOD) index 13.92 ml/m2 - Diastolic/Systolic Function Name Value Normal Range MV E-wave Vmax 1.1 m/sec - MV deceleration time 171.63 msec - MV A-wave Vmax 1.18 m/sec - MV E:A ratio 0.94 ratio - Aortic Valve Name Value Normal Range AV Vmax 1.37 m/sec - AV VTI 26.97 cm - AV peak gradient 7.5 mmHg - AV mean gradient 3.79 mmHg - LVOT diameter 2.03 cm - LVOT Vmax 1.09 m/sec - LVOT VTI 23.3 cm - LVOT peak gradient 4.76 mmHg - LVOT mean gradient 2.45 mmHg - SV LVOT 75.15 ml - DARINEL (continuity Vmax) 2.57 cm2 - DARINEL (continuity VTI) 2.79 cm2 - Tricuspid Valve Name Value Normal Range TR Vmax 2.96 m/sec - TR peak gradient 35 mmHg - RAP 3 mmHg - RVSP 38 mmHg - IVC diameter 1.78 cm (1.2 - 2.3) Pulmonic Valve/Qp:Qs Name Value Normal Range PV Vmax 0.96 m/sec - PV peak gradient 3.68 mmHg - AL end-diastolic Vmax 1.42 m/sec - PV acceleration time 64.7 msec - [place]/IV: Voiding Method Condom Catheter IV Catheter Type [Left Forearm INT / Saline Lock ] IV Catheter Type [Left Triple Lumen Cath Subclavian] IV Catheter Type [Right INT / Saline Lock Antecubital] Active Medications - Current Medications Current Medications: Generic Name Dose Route Start Last Admin Trade Name Freq PRN Reason Stop Dose Admin Acetaminophen 650 mg 12/19/19 12:15 12/28/19 16:09 Tylenol PO 650 mg Q4H PRN Administration Fever >101 Lipase/Protease/Amylase 1 each 12/22/19 10:[address] 10,500 Unit FEEDTUBE PRN PRN For Clogged Feeding Tube Ascorbic Acid 500 mg 12/19/19 13:00 12/28/19 21:29 Vitamin C PO 500 mg Q12HR NIKOLSA Administration Atorvastatin Calcium 20 mg 12/19/19 22:00 12/28/19 21:29 Lipitor PO 20 mg QHS NIKOLAS Administration Bismuth Subsalicylate 524 mg 12/19/19 12:15 Pepto Bismol PO Q6H PRN Diarrhea Citalopram Hydrobromide 30 mg 12/19/19 14:00 12/28/19 10:57 Celexa PO 30 mg DAILY NIKOLAS Administration Ferrous Sulfate 308 mg 12/20/19 22:00 12/28/19 21:30 Ferrous Sulfate FEEDTUBE 308 mg BID NIKOLAS Administration Hydrophilic Ointment 1 applic 12/19/19 10:35 Vaseline Lip Therapy TP Q2HR PRN Dry Lips Ceftriaxone Sodium 2 gm in 100 mls @ 200 mls/hr 12/28/19 10:00 12/28/19 10:55 Rocephin/Ns 2 Gm/100 Ml IV 01/06/20 10:29 200 mls/hr Q24HR NIKOLAS Administration Lansoprazole 30 mg 12/23/19 10:00 12/28/19 21:29 Prevacid Solutab FEEDTUBE 30 mg BID NIKOLAS Administration Latanoprost 1 drops 12/19/19 22:00 12/28/19 21:32 Latanoprost 0.005% OD 1 drops QHS NIKOLAS Administration Lisinopril 10 mg 12/19/19 13:00 12/28/19 10:56 Zestril PO 10 mg QDAY NIKOLAS Administration Magnesium Oxide 400 mg 12/20/19 10:00 12/28/19 10:56 Mag-Ox PO 400 mg QDAY NIKOLAS Administration Multi-Ingred Cream/Lotion/Oil/Oint 1 applic 12/19/19 10:35 Artificial Tears Ophth Oint OU Q4HR PRN Dry Eye(s) Quetiapine Fumarate 50 mg 12/19/19 14:00 12/28/19 21:29 Seroquel PO 50 mg TID NIKOLAS Administration Simple Syrup 15 ml 12/22/19 09:51 Simple Syrup FEEDTUBE PRN PRN Hypoglycemia Simple Syrup 30 ml 12/22/19 10:05 Simple Syrup FEEDTUBE PRN PRN Hypoglycemia Sodium Bicarbonate 325 mg 12/22/19 10:05 Sodium Bicarbonate FEEDTUBE PRN PRN For Clogged Feeding Tube Sodium Chloride 10 ml 12/19/19 22:00 12/28/19 21:43 Sodium Chloride Flush Syringe 10 Ml IV 10 ml BID NIKOLAS Administration Sodium Chloride 10 ml 12/19/19 12:13 Sodium Chloride Flush Syringe 10 Ml IV PRN PRN LINE FLUSH Thiamine HCl 100 mg 12/20/19 10:00 12/28/19 10:56 Vitamin B-1 PO 100 mg DAILY NIKOLAS Administration Timolol Maleate 1 drops 12/19/19 22:00 12/28/19 21:33 Timoptic OU 1 drops BID NIKOLAS Administration Nutrition/Malnutrition Assess - Dietary Evaluation Nutrition/Malnutrition Findings: Nutrition Notes Start: 12/20/19 08:53 Freq: Status: Active Protocol: Document 12/24/19 13:33 LM (Rec: 12/24/19 13:38 LM [email or web address]) Nutrition Notes Initial or Follow up Reassessment Current Diagnosis Acute Kidney Injury,COPD, Diabetes,Hypertension, Respiratory Failure,Stroke Other Pertinent Diagnosis GI bleed, encephalopathy, debility Current Diet Glucerna 1.2 at 65ml/hr Labs/Tests POC glu 179 Pertinent Medications Reviewed Height 5 ft 6 in Weight 76.3 kg [place] Body Weight (kg) 64.54 BMI 27.1 Weight Status Overweight Subjective/Other Information Glucerna running at goal and tolerating per RN. Percent of energy/protein needs met: 100%/100% Burn Absent Trauma Absent Current % PO Negligible Minimum of two criteria No physical signs of malnutrition #1 Nutrition Diagnosis Inadequate oral intake Diagnosis Progress(for reassessment Continues documentation) Is patient on ventilator? No Is Patient Ambulatory and/or Out of Bed No REE-(Vanderwagen-St. Jeor-confined to bed) 1765.364 Calculation [facility] Additional Notes Protein: 60-90g (0.8-1.2g/kg) Fluid: 1 ml/kcal Nutrition Intervention Change Diet Order: TF Nutrition Support: Glucerna 1.2 at 65 ml/hr Flush 200 ml q4h for hypernatremia Flush 100 ml q4h once resolved Kcal 1,872 Protein (gm) 94 Fluid (mL) 1,256 Goal #1 TF tolerance Goal #2 Meet at least 75% of energy and protein needs via TF Anticipated Discharge Needs: TF Follow-Up By: 12/30/19 Additional Comments F/U for TF tolerance
[2019-12-29] MEDS: cefTRIAXone/NS 2 GM/100 ML 2 GM/100 ML BAG IV SCH (11:16)
[2019-12-29] MEDS: THIAMINE 100 MG TAB PO SCH (11:17)
[2019-12-29] MEDS: ASCORBIC ACID 500 MG TAB PO SCH ×2 (11:17→21:17)
[2019-12-29] MEDS: LANSOPRAZOLE 30 MG SOLUTAB FEEDTUBE SCH ×2 (11:18→21:17)
[2019-12-29] MEDS: QUEtiapine 25 MG TAB PO SCH ×3 (11:18→21:17)
[2019-12-29] MEDS: FERROUS SULFATE 308 MG (62mg Elemental Iron) / 7 ML ELIXIR FEEDTUBE SCH ×2 (11:19→21:17)
[2019-12-29] MEDS: CITALOPRAM 10 MG TAB PO SCH (11:20)
[2019-12-29] MEDS: MAGNESIUM OXIDE 400 MG TAB PO SCH (11:21)
[2019-12-29] MEDS: LISINOPRIL 10 MG TAB PO SCH (11:25)
--- NOTE | 2019-12-29 14:07 | Progress Note ---
Assessment and Plan Acute upper GI bleed Severe Sepsis witrh Shock Acute hypoxemic respiratory failure Diabetes mellitus type 2 Hypertension Metabolic acidosis/lactic acidosis - H&H prn re: G.I. Bleed - continue PPI therapy - complete Rocephin dosing per ID recommendations - [employer] evaluation as he is at risk for overt aspiration - no new issues otherwise; continue care as below - COVID-19 testing pending re: ER exposure - supplemental oxygen as needed to keep O2 sat's > 90% - continue contact and droplet isolation and follow clinically due to COVID-19 exposure - prn bronchodilators with pulmonary hygiene per RT - continue antiinfective's per ID recommendations for bacteremia / sepsis - PT/OT as tolerated - mobility protocols for pressure ulcer prophylaxis - continue accuchecks with glycemic control per SSI for target BG < 180 mg/dl - GI & VTE prophylaxis with PPI & SCD's - Flu & pneumovax addressed per protocol - continue other care per attending / other consultants ... re-evaluate in am & prn Subjective Date of service: 12/29/19 Principal diagnosis: Ac upper GI bleed; Shock; Ac hypoxemic resp failure; DM II; H/O HTN Interval history: Patient is seen today for: Acute upper GI bleed; Severe Sepsis witrh Shock; Acute hypoxemic respiratory failure; DM II; HTN; Metabolic acidosis/lactic acidosis Seen and examined at bedside; 24hour events reviewed; nursing and respiratory care staff consulted; no adverse overnight events reported to me; resting peacefully in bed; Objective Vital Signs - 12hr 12/29/19 12/29/19 12/29/19 06:15 07:48 11:08 Temperature 97.8 F 98.8 F Pulse Rate 96 H 101 H Respiratory 20 22 Rate Blood Pressure 138/87 134/89 O2 Sat by Pulse 98 98 100 Oximetry 12/29/19 11:25 Temperature Pulse Rate Respiratory Rate Blood Pressure 134/89 O2 Sat by Pulse Oximetry Constitutional: no acute distress Eyes: non-icteric ENT: oropharynx moist Neck: supple, no lymphadenopathy, no JVD Effort: normal Ascultation: Bilateral: diminished breath sounds, rhonchi Percussion: Bilateral: not dull Cardiovascular: regular rate and rhythm Gastrointestinal: normoactive bowel sounds, soft, non-tender, non-distended Integumentary: rash Extremities: no cyanosis, no edema, pulses normal Neurologic: pupils equal and round, other (mumbles sometimes appropriate replies to questions) Psychiatric: other (affect flat) CBC and BMP: 12/27/19 04:32 12/27/19 04:32 ABG, PT/INR, D-dimer: ABG ABG pH 7.432 pH Units (7.350-7.450) 12/20/19 12:15 ABG pCO2 36.0 mm Hg 12/20/19 12:15 ABG pO2 150.8 mm Hg (80.0-90.0) H 12/20/19 12:15 ABG O2 Saturation 98.9 % (95.0-99.0) 12/20/19 12:15 PT/INR, D-dimer PT 15.3 Sec. (12.2-14.9) H 12/19/19 09:14 INR 1.19 (0.87-1.13) H 12/19/19 09:14 Abnormal lab findings: Abnormal Labs 12/19/19 12/19/19 12/19/19 09:10 09:14 09:14 WBC 12.1 H RBC Hgb 10.0 L Hct 32.3 L MCV 81 L MCH 25 L MCHC 31 L RDW 17.7 H Lymph % (Auto) [place] % (Auto) [place] # 0.9 H Seg Neutrophils % 78.2 H Seg Neutrophils # 9.5 H PT 15.3 H INR 1.19 H ABG pH ABG pO2 ABG HCO3 ABG O2 Saturation ABG Base Excess ABG Hemoglobin Sodium Potassium Chloride Carbon Dioxide BUN Creatinine Glucose POC Glucose Lactic Acid Calcium Albumin Vancomycin Trough Crossmatch See Detail 12/19/19 12/19/19 12/19/19 09:14 09:14 10:05 WBC RBC Hgb Hct MCV MCH MCHC RDW Lymph % (Auto) [place] % (Auto) [place] # Seg Neutrophils % Seg Neutrophils # PT INR ABG pH ABG pO2 ABG HCO3 ABG O2 Saturation ABG Base Excess ABG Hemoglobin Sodium Potassium Chloride Carbon Dioxide 20 L BUN 55 H Creatinine Glucose 222 H POC Glucose 212 H Lactic Acid 3.10 H* Calcium Albumin 3.4 L Vancomycin Trough Crossmatch 12/19/19 12/19/19 12/19/19 10:30 12:30 15:55 WBC RBC Hgb Hct MCV MCH MCHC RDW Lymph % (Auto) [place] % (Auto) [place] # Seg Neutrophils % Seg Neutrophils # PT INR ABG pH 7.277 L ABG pO2 195.1 H ABG HCO3 19.2 L ABG O2 Saturation 99.2 H ABG Base Excess -7.1 L ABG Hemoglobin 9.4 L Sodium Potassium Chloride Carbon Dioxide BUN Creatinine Glucose POC Glucose Lactic Acid 2.80 H* 5.10 H* Calcium Albumin Vancomycin Trough Crossmatch 12/20/19 12/20/19 12/20/19 04:20 04:59 04:59 WBC 11.3 H RBC 3.21 L Hgb 8.0 L Hct 26.0 L D MCV 81 L MCH 25 L MCHC 31 L RDW 17.7 H Lymph % (Auto) 12.2 L [place] % (Auto) 11.1 H [place] # 1.2 H Seg Neutrophils % 76.5 H Seg Neutrophils # 8.6 H PT INR ABG pH ABG pO2 139.7 H ABG HCO3 ABG O2 Saturation ABG Base Excess ABG Hemoglobin 9.2 L Sodium 147 H Potassium Chloride 113.7 H Carbon Dioxide BUN 29 H Creatinine 0.6 L D Glucose 172 H POC Glucose Lactic Acid Calcium Albumin Vancomycin Trough Crossmatch 12/20/19 12/21/19 12/21/19 12:15 04:38 04:38 WBC RBC 2.55 L Hgb 6.5 L Hct 20.9 L MCV 82 L MCH 26 L MCHC 31 L RDW 18.1 H Lymph % (Auto) [place] % (Auto) 10.8 H [place] # 0.9 H Seg Neutrophils % 70.8 H Seg Neutrophils # PT INR ABG pH ABG pO2 150.8 H ABG HCO3 ABG O2 Saturation ABG Base Excess ABG Hemoglobin 5.5 L Sodium 149 H Potassium 3.5 L Chloride 114.9 H Carbon Dioxide BUN 21 H Creatinine 0.5 L Glucose 114 H POC Glucose Lactic Acid Calcium Albumin Vancomycin Trough Crossmatch 12/21/19 12/22/19 12/22/19 23:02 10:34 10:34 WBC RBC 3.24 L Hgb 7.7 L 8.4 L Hct 24.8 L 27.0 L MCV 83 L MCH 26 L MCHC 31 L RDW 17.7 H Lymph % (Auto) [place] % (Auto) [place] # Seg Neutrophils % Seg Neutrophils # PT INR ABG pH ABG pO2 ABG HCO3 ABG O2 Saturation ABG Base Excess ABG Hemoglobin Sodium 147 H Potassium Chloride 112.3 H Carbon Dioxide 20 L BUN Creatinine 0.5 L Glucose 102 H POC Glucose Lactic Acid Calcium Albumin Vancomycin Trough Crossmatch 12/22/19 12/22/19 12/22/19 11:58 18:15 23:47 WBC RBC Hgb Hct MCV MCH MCHC RDW Lymph % (Auto) [place] % (Auto) [place] # Seg Neutrophils % Seg Neutrophils # PT INR ABG pH ABG pO2 ABG HCO3 ABG O2 Saturation ABG Base Excess ABG Hemoglobin Sodium Potassium Chloride Carbon Dioxide BUN Creatinine Glucose POC Glucose 126 H 114 H 121 H Lactic Acid Calcium Albumin Vancomycin Trough Crossmatch 12/23/19 12/23/19 12/23/19 05:46 06:38 06:38 WBC RBC 2.94 L Hgb 7.6 L Hct 23.8 L MCV 81 L MCH 26 L MCHC RDW 17.0 H Lymph % (Auto) [place] % (Auto) [place] # Seg Neutrophils % Seg Neutrophils # PT INR ABG pH ABG pO2 ABG HCO3 ABG O2 Saturation ABG Base Excess ABG Hemoglobin Sodium Potassium 3.3 L Chloride 107.5 H Carbon Dioxide BUN Creatinine 0.4 L Glucose 132 H POC Glucose 124 H Lactic Acid Calcium 8.1 L Albumin Vancomycin Trough Crossmatch 12/23/19 12/23/19 12/24/19 15:54 20:50 00:06 WBC RBC Hgb Hct MCV MCH MCHC RDW Lymph % (Auto) [place] % (Auto) [place] # Seg Neutrophils % Seg Neutrophils # PT INR ABG pH ABG pO2 ABG HCO3 ABG O2 Saturation ABG Base Excess ABG Hemoglobin Sodium Potassium Chloride Carbon Dioxide BUN Creatinine Glucose POC Glucose 150 H 135 H Lactic Acid Calcium Albumin Vancomycin Trough 21.4 H Crossmatch 12/24/19 12/24/19 12/25/19 05:34 18:28 05:31 WBC RBC Hgb Hct MCV MCH MCHC RDW Lymph % (Auto) [place] % (Auto) [place] # Seg Neutrophils % Seg Neutrophils # PT INR ABG pH ABG pO2 ABG HCO3 ABG O2 Saturation ABG Base Excess ABG Hemoglobin Sodium Potassium Chloride Carbon Dioxide BUN Creatinine Glucose POC Glucose 179 H 156 H 179 H Lactic Acid Calcium Albumin Vancomycin Trough Crossmatch 12/25/19 12/26/19 12/26/19 17:50 05:00 05:00 WBC 16.9 H RBC 2.91 L Hgb 7.3 L Hct 22.9 L MCV 79 L MCH 25 L MCHC RDW 17.7 H Lymph % (Auto) [place] % (Auto) [place] # Seg Neutrophils % Seg Neutrophils # PT INR ABG pH ABG pO2 ABG HCO3 ABG O2 Saturation ABG Base Excess ABG Hemoglobin Sodium 135 L D Potassium 3.1 L Chloride 96.6 L Carbon Dioxide BUN 7 L Creatinine 0.5 L Glucose 180 H POC Glucose 211 H Lactic Acid Calcium 8.0 L Albumin Vancomycin Trough Crossmatch 12/26/19 12/26/19 12/27/19 16:57 22:42 04:32 WBC 14.6 H RBC 2.95 L Hgb 7.4 L Hct 23.4 L MCV 79 L MCH 25 L MCHC RDW 18.4 H Lymph % (Auto) [place] % (Auto) [place] # Seg Neutrophils % Seg Neutrophils # PT INR ABG pH ABG pO2 ABG HCO3 ABG O2 Saturation ABG Base Excess ABG Hemoglobin Sodium Potassium Chloride Carbon Dioxide BUN Creatinine Glucose POC Glucose 117 H 174 H Lactic Acid Calcium Albumin Vancomycin Trough Crossmatch 12/27/19 12/27/19 12/29/19 04:32 05:59 06:48 WBC RBC Hgb Hct MCV MCH MCHC RDW Lymph % (Auto) [place] % (Auto) [place] # Seg Neutrophils % Seg Neutrophils # PT INR ABG pH ABG pO2 ABG HCO3 ABG O2 Saturation ABG Base Excess ABG Hemoglobin Sodium Potassium Chloride Carbon Dioxide BUN Creatinine 0.7 L Glucose 189 H POC Glucose 183 H 212 H Lactic Acid Calcium Albumin Vancomycin Trough Crossmatch 12/29/19 11:23 WBC RBC Hgb Hct MCV MCH MCHC RDW Lymph % (Auto) [place] % (Auto) [place] # Seg Neutrophils % Seg Neutrophils # PT INR ABG pH ABG pO2 ABG HCO3 ABG O2 Saturation ABG Base Excess ABG Hemoglobin Sodium Potassium Chloride Carbon Dioxide BUN Creatinine Glucose POC Glucose 170 H Lactic Acid Calcium Albumin Vancomycin Trough Crossmatch Allied health notes reviewed: nursing
--- NOTE | 2019-12-29 15:30 | Progress Note ---
Assessment and Plan Cultures: Blood culture 12/19/2019 group B strep 4/4 Sputum culture 12/19/2019 group B strep, Proteus mirabilis Blood culture 12/23/2019 no growth A/P: 54-year-old man who is a resident of a longterm facility with a past medical history of COPD, diabetes, stroke, encephalopathy, debility admitted with UGIB, found to have GBS bacteremia #Strep anginosus bacteremia: Unclear source, possible lung. TTE no vegetation. #Tracheitis: patient without significant PNA on CXR #Diabetes: tight glycemic control for best outcomes. #Penicillin allergy: non-verbal, unable to properly assess. Recs: -continueceftriaxone 2 gm IV q day -Discussed with pulm doc re: patient's exposure to COVID-19 patient in the ER. Patient remains asymptomatic, however his facility won't take him back without negative test. Agree with testing for now, though his risk of infection is extre kika low. -anticipate to d/c on ceftriaxone 2 g IV q day total 14 days till 01/06/2020. Discussed w manager of case Will sign off Juli Fernandez MD Infectious Diseases [employer] [facility] ([facility]) M [phone] O [phone] Subjective Date of service: 12/29/19 Principal diagnosis: Ac upper GI bleed; Shock; Ac hypoxemic resp failure; DM II; H/O HTN Interval history: More alert temp trending down on room air Objective - Exam Narrative Exam: Gen: alert in RA Head, Ears, Nose: Normocephalic, atraumatic. Oral: Limited Cardiovascular: Limited evaluation due to PPE shortage Respiratory: limited GI: Limited evaluation due to PPE shortage +PEG Musculoskeletal: Limited evaluation due to PPE shortage Neurological:alert - Constitutional Vitals: Vital Signs Temp Pulse Resp BP Pulse Ox 98.8 F 101 H 22 134/89 100 12/29/19 11:08 12/29/19 11:08 12/29/19 11:08 12/29/19 11:25 12/29/19 11:08 Temperature -Last 24 Hours Temperature 98.8 F Temperature 97.8 F Temperature 97.8 F Temperature 100.3 F - Labs CBC & Chem 7: 12/27/19 04:32 12/27/19 04:32 Labs: Abnormal lab results 12/29/19 12/29/19 Range/Units 06:48 11:23 POC Glucose 212 H 170 H (70-105)
[2019-12-29] MEDS: TIMOLOL 0.5% OPHTH SOLN 5 ML OU SCH ×2 (18:33→21:22)
[2019-12-29] MEDS: LATANOPROST 0.005% OPHTH SOLN 2.5 ML OD SCH (21:22)
[2019-12-30] MEDS: cefTRIAXone/NS 2 GM/100 ML 2 GM/100 ML BAG IV SCH (09:27)
[2019-12-30] MEDS: FERROUS SULFATE 308 MG (62mg Elemental Iron) / 7 ML ELIXIR FEEDTUBE SCH ×2 (09:28→21:06)
[2019-12-30] MEDS: THIAMINE 100 MG TAB PO SCH (09:28)
[2019-12-30] MEDS: ASCORBIC ACID 500 MG TAB PO SCH ×2 (09:28→21:06)
[2019-12-30] MEDS: MAGNESIUM OXIDE 400 MG TAB PO SCH (09:28)
[2019-12-30] MEDS: QUEtiapine 25 MG TAB PO SCH ×3 (09:28→21:06)
[2019-12-30] MEDS: TIMOLOL 0.5% OPHTH SOLN 5 ML OU SCH ×2 (09:29→21:08)
[2019-12-30] MEDS: LANSOPRAZOLE 30 MG SOLUTAB FEEDTUBE SCH ×2 (09:29→21:06)
[2019-12-30] MEDS: CITALOPRAM 10 MG TAB PO SCH (09:29)
[2019-12-30] MEDS: LISINOPRIL 10 MG TAB PO SCH (09:36)
--- NOTE | 2019-12-30 10:21 | Progress Note ---
Assessment and Plan Assessment and plan: Acute upper GI bleed. Patient underwent endoscopy which revealed esophagitis in the lower third of the esophagus. There was a cratered, clean based ulcer in the incisura of the stomach. No high risk bleeding stigmata was seen. Continue to monitor H&H and transfuse for hemoglobin less than 7. Continue PPI. Acute hypoxic respiratory failure. Cont. O2 to maintain sats Diabetes mellitus type 2. Continue Accu-Cheks and sliding scale insulin. Hypertension. Patient actually hypotensive given the bleed. Metabolic acidosis/lactic acidosis. Etiology likely secondary to hypotension/hypoperfusion from GI bleed. Patient with no obvious signs of infection. Patient remains asymptomatic, however his facility won't take him back without negative test. Agree with testing for now, though his risk of infection is extremely low. -anticipate to d/c on ceftriaxone 2 g IV q day total 14 days till 01/06/2020. Discussed w piano case and bench assembler 12/29/2019. Patient still with low-grade fever yesterday of 100.5. Patient currently satting 98% on room air. Patient continues to remain asymptomatic, however his facility won't take him back without negative test. Await for negative COVID-19 test. 12/30/2019. Patient still with low-grade fever 100.5. Patient requiring no oxygen. Patient continues to remain asymptomatic, however his facility won't take him back without negative test. Await for negative COVID-19 test. History Interval history: he patient is a 54 yo male presenting from detention with melena; pt with h/o cva, non-verbal, with chronic peg tube. h/o gastric ulcer from prior endoscopies. upon arrival, pt had large episode of emesis with clots. intubated for airway protection. hypotensive initially and improved with fluid boluses. Due to lack of resources with insufficient PPE and in an effort to preserve PPE that we have remaining, patient's visit was done by telephone. Hospitalist Physical - Constitutional Vitals: Temp Pulse Resp BP Pulse Ox 99.7 F H 96 H 20 122/81 99 12/30/19 04:16 12/30/19 09:36 12/30/19 04:16 12/30/19 09:36 12/30/19 10:00 General appearance: Present: other (Orally intubatedon mechanical ventilation) - EENT Eyes: Present: PERRL, EOM intact ENT: hearing intact, clear oral mucosa, dentition normal - Neck Neck: Present: supple, normal ROM - Respiratory Respiratory effort: normal Respiratory: bilateral: CTA - Cardiovascular Rhythm: regular Heart Sounds: Present: S1 & S2. Absent: gallop, rub - Extremities Extremities: no ischemia, No edema, Full ROM - Abdominal General gastrointestinal: soft, non-tender, non-distended, normal bowel sounds - Integumentary Integumentary: Present: clear, warm, dry - Neurologic Neurologic: CNII-XII intact, moves all extremities Results - Labs CBC & Chem 7: 12/27/19 04:32 12/27/19 04:32 Labs: Laboratory Last Values WBC 14.6 K/mm3 (4.5-11.0) H 12/27/19 04:32 RBC 2.95 M/mm3 (3.65-5.03) L 12/27/19 04:32 Hgb 7.4 gm/dl (11.8-15.2) L 12/27/19 04:32 Hct 23.4 % (35.5-45.6) L 12/27/19 04:32 MCV 79 fl (84-94) L 12/27/19 04:32 MCH 25 pg (28-32) L 12/27/19 04:32 MCHC 32 % (32-34) 12/27/19 04:32 RDW 18.4 % (13.2-15.2) H 12/27/19 04:32 Plt Count 266 K/mm3 (140-440) 12/27/19 04:32 Lymph % (Auto) 16.7 % (13.4-35.0) 12/21/19 04:38 [place] % (Auto) 10.8 % (0.0-7.3) H 12/21/19 04:38 Eos % (Auto) 1.2 % (0.0-4.3) 12/21/19 04:38 Baso % (Auto) 0.5 % (0.0-1.8) 12/21/19 04:38 Lymph # 1.4 K/mm3 (1.2-5.4) 12/21/19 04:38 [place] # 0.9 K/mm3 (0.0-0.8) H 12/21/19 04:38 Eos # 0.1 K/mm3 (0.0-0.4) 12/21/19 04:38 Baso # 0.0 K/mm3 (0.0-0.1) 12/21/19 04:38 Seg Neutrophils % 70.8 % (40.0-70.0) H 12/21/19 04:38 Seg Neutrophils # 6.0 K/mm3 (1.8-7.7) 12/21/19 04:38 PT 15.3 Sec. (12.2-14.9) H 12/19/19 09:14 INR 1.19 (0.87-1.13) H 12/19/19 09:14 APTT 26.4 Sec. (24.2-36.6) 12/19/19 09:14 ABG pH 7.432 pH Units (7.350-7.450) 12/20/19 12:15 ABG pCO2 36.0 mm Hg 12/20/19 12:15 ABG pO2 150.8 mm Hg (80.0-90.0) H 12/20/19 12:15 ABG HCO3 23.5 mmol/L (20.0-26.0) 12/20/19 12:15 ABG O2 Saturation 98.9 % (95.0-99.0) 12/20/19 12:15 ABG O2 Content 7.8 (0.0-44) 12/20/19 12:15 ABG Base Excess -0.8 mmol/L (-2.0-3.0) 12/20/19 12:15 ABG Hemoglobin 5.5 gm/dl (14.0-18.0) L 12/20/19 12:15 ABG Carboxyhemoglobin 1.9 % (0.0-5.0) 12/20/19 12:15 ABG Methemoglobin 0.5 % (0.0-1.5) 12/20/19 12:15 Oxyhemoglobin 96.5 % (95.0-99.0) 12/20/19 12:15 FiO2 35 % 12/20/19 12:15 Sodium 137 mmol/L (137-145) 12/27/19 04:32 Potassium 4.0 mmol/L (3.6-5.0) D 12/27/19 04:32 Chloride 103.3 mmol/L (98-107) 12/27/19 04:32 Carbon Dioxide 23 mmol/L (22-30) 12/27/19 04:32 Anion Gap 15 mmol/L 12/27/19 04:32 BUN 11 mg/dL (9-20) 12/27/19 04:32 Creatinine 0.7 mg/dL (0.8-1.5) L 12/27/19 04:32 Estimated GFR > 60 ml/min 12/27/19 04:32 BUN/Creatinine Ratio 16 % 12/27/19 04:32 Glucose 189 mg/dL (75-100) H 12/27/19 04:32 POC Glucose 156 (70-105) H 12/30/19 06:26 Lactic Acid 5.10 mmol/L (0.7-2.0) H* 12/19/19 15:55 Calcium 8.4 mg/dL (8.4-10.2) 12/27/19 04:32 Magnesium 2.00 mg/dL (1.7-2.3) 12/19/19 09:14 Total Bilirubin 0.20 mg/dL (0.1-1.2) 12/19/19 09:14 AST 13 units/L (5-40) 12/19/19 09:14 ALT 11 units/L (7-56) 12/19/19 09:14 Alkaline Phosphatase 85 units/L (35-129) 12/19/19 09:14 Ammonia 35.0 umol/L (25-60) 12/19/19 09:14 Total Protein 6.6 g/dL (6.3-8.2) 12/19/19 09:14 Albumin 3.4 g/dL (3.9-5) L 12/19/19 09:14 Albumin/Globulin Ratio 1.1 % 12/19/19 09:14 Lipase 49 units/L (13-60) 12/19/19 09:14 Urine Color Yellow (Yellow) 12/19/19 10:02 Urine Turbidity Slightly-cloudy (Clear) 12/19/19 10:02 Urine pH 5.0 (5.0-7.0) 12/19/19 10:02 Ur Specific [place] 1.024 (1.003-1.030) 12/19/19 10:02 Urine Protein 30 mg/dl mg/dL (Negative) 12/19/19 10:02 Urine Glucose (UA) 50 mg/dL (Negative) 12/19/19 10:02 Urine Ketones Neg mg/dL (Negative) 12/19/19 10:02 Urine Blood Neg (Negative) 12/19/19 10:02 Urine Nitrite Neg (Negative) 12/19/19 10:02 Urine Bilirubin Neg (Negative) 12/19/19 10:02 Urine Urobilinogen < 2.0 mg/dL (<2.0) 12/19/19 10:02 Ur Leukocyte Esterase Neg (Negative) 12/19/19 10:02 Urine WBC (Auto) 2.0 /HPF (0.0-6.0) 12/19/19 10:02 Urine RBC (Auto) 1.0 /HPF (0.0-6.0) 12/19/19 10:02 U Epithel Cells (Auto) < 1.0 /HPF (0-13.0) 12/19/19 10:02 Hyaline Casts 11 /LPF 12/19/19 10:02 Urine Mucus 2+ /HPF 12/19/19 10:02 Urine Sperm Few /HPF (MEDICAL LEADER) 12/19/19 10:02 Vancomycin Trough 13.0 ug/mL (5.0-20.0) 12/27/19 20:46 Random Vancomycin 7.5 ug/mL (0-40.0) 12/21/19 23:02 Blood Type O POSITIVE 12/19/19 09:10 Antibody Screen Negative 12/19/19 09:10 Crossmatch See Detail 12/19/19 09:10 - Diagnostic Impressions Diagnostic Impressions: Echocardiogram 12/22/19 17:57 Transthoracic Echocardiogram Indication: R/O Endocarditis BP: 133/79 HR: 81 Conclusions *Global left ventricular systolic function is normal. *Mild concentric left ventricular hypertrophy is observed. *The estimated ejection fraction is 50-55%. *Abnormal left ventricular diastolic filling is observed, consistent with impaired relaxation. *The right ventricular global systolic function is mildly reduced. *There is no evidence of aortic regurgitation. *There is trace of mitral regurgitation. *There is trace tricuspid regurgitation. *The right ventricular systolic pressure is calculated at 38 mmHg. *There is trace pulmonic regurgitation. Findings Left Ventricle: The left ventricular chamber size is normal. Mild concentric left ventricular hypertrophy is observed. Global left ventricular systolic function is normal. The estimated ejection fraction is 50-55%. Abnormal left ventricular diastolic filling is observed, consistent with impaired relaxation. Left Atrium: The left atrial chamber size is normal. Right Ventricle: The right ventricular cavity size is normal. The right ventricular global systolic function is mildly reduced. Right Atrium: The right atrial cavity size is normal. Aortic Valve: The aortic valve is trileaflet. There is no evidence of aortic regurgitation. Mitral Valve: The mitral valve leaflets are mildly thickened. There is trace of mitral regurgitation. Tricuspid Valve: The tricuspid valve leaflets are normal. There is trace tricuspid regurgitation. The right ventricular systolic pressure is calculated at 38 mmHg. Pulmonic Valve: The pulmonic valve appears normal. There is trace pulmonic regurgitation. Pericardium: There is no pericardial effusion. Aorta: There is no dilatation of the ascending aorta. There is no dilatation of the aortic root. Venous: The inferior vena cava appears normal in size. There is a greater than 50% respiratory change in the inferior vena cava dimension. Measurements Chambers 2D Name Value Normal Range IVSd (2D) 1.33 cm (0.6 - 1.1) LVPWd (2D) 1.29 cm (0.6 - 1.1) LVIDd (2D) 3.1 cm (3.7 - 5.6) LVIDs (2D) 2.26 cm (2 - 3.8) LV FS (2D) 27.25 % - EF Teichholz (2D) 54.5 % - Ao root diameter (2D) 2.84 cm (2 - 3.7) Volumes/Mass Name Value Normal Range LA ESV SP 4CH (A/L) 20.15 ml - LA ESV SP 2CH (A/L) 33.14 ml - LA ESV BP (A/L) 28.63 ml - LA ESV BP (A/L) index 15.39 ml/m2 - LA ESV SP 4CH (MOD) 18.4 ml - LA ESV SP 2CH (MOD) 29.82 ml - LA ESV BP (MOD) 25.89 ml - LA ESV BP (MOD) index 13.92 ml/m2 - Diastolic/Systolic Function Name Value Normal Range MV E-wave Vmax 1.1 m/sec - MV deceleration time 171.63 msec - MV A-wave Vmax 1.18 m/sec - MV E:A ratio 0.94 ratio - Aortic Valve Name Value Normal Range AV Vmax 1.37 m/sec - AV VTI 26.97 cm - AV peak gradient 7.5 mmHg - AV mean gradient 3.79 mmHg - LVOT diameter 2.03 cm - LVOT Vmax 1.09 m/sec - LVOT VTI 23.3 cm - LVOT peak gradient 4.76 mmHg - LVOT mean gradient 2.45 mmHg - SV LVOT 75.15 ml - DARINEL (continuity Vmax) 2.57 cm2 - DARINEL (continuity VTI) 2.79 cm2 - Tricuspid Valve Name Value Normal Range TR Vmax 2.96 m/sec - TR peak gradient 35 mmHg - RAP 3 mmHg - RVSP 38 mmHg - IVC diameter 1.78 cm (1.2 - 2.3) Pulmonic Valve/Qp:Qs Name Value Normal Range PV Vmax 0.96 m/sec - PV peak gradient 3.68 mmHg - MI end-diastolic Vmax 1.42 m/sec - PV acceleration time 64.7 msec - NDUM: 12/24/19 1217 Amended Report Transthoracic Echocardiogram Indication: R/O Endocarditis BP: 133/79 HR: 81 Conclusions *Global left ventricular systolic function is normal. *Mild concentric left ventricular hypertrophy is observed. *The estimated ejection fraction is 50-55%. *Abnormal left ventricular diastolic filling is observed, consistent with impaired relaxation. *The right ventricular global systolic function is mildly reduced. *There is no evidence of aortic regurgitation. *There is trace of mitral regurgitation. *There is trace tricuspid regurgitation. *The right ventricular systolic pressure is calculated at 38 mmHg. *There is trace pulmonic regurgitation. *No obvious endocardtis noted on mitral and aortic and tricuspid valve, if clinically indicated suggest JUAN Findings Left Ventricle: The left ventricular chamber size is normal. Mild concentric left ventricular hypertrophy is observed. Global left ventricular systolic function is normal. The estimated ejection fraction is 50-55%. Abnormal left ventricular diastolic filling is observed, consistent with impaired relaxation. Left Atrium: The left atrial chamber size is normal. Right Ventricle: The right ventricular cavity size is normal. The right ventricular global systolic function is mildly reduced. Right Atrium: The right atrial cavity size is normal. Aortic Valve: The aortic valve is trileaflet. There is no evidence of aortic regurgitation. Mitral Valve: The mitral valve leaflets are mildly thickened. There is trace of mitral regurgitation. Tricuspid Valve: The tricuspid valve leaflets are normal. There is trace tricuspid regurgitation. The right ventricular systolic pressure is calculated at 38 mmHg. Pulmonic Valve: The pulmonic valve appears normal. There is trace pulmonic regurgitation. Pericardium: There is no pericardial effusion. Aorta: There is no dilatation of the ascending aorta. There is no dilatation of the aortic root. Venous: The inferior vena cava appears normal in size. There is a greater than 50% respiratory change in the inferior vena cava dimension. Measurements Chambers 2D Name Value Normal Range IVSd (2D) 1.33 cm (0.6 - 1.1) LVPWd (2D) 1.29 cm (0.6 - 1.1) LVIDd (2D) 3.1 cm (3.7 - 5.6) LVIDs (2D) 2.26 cm (2 - 3.8) LV FS (2D) 27.25 % - EF Teichholz (2D) 54.5 % - Ao root diameter (2D) 2.84 cm (2 - 3.7) Volumes/Mass Name Value Normal Range LA ESV SP 4CH (A/L) 20.15 ml - LA ESV SP 2CH (A/L) 33.14 ml - LA ESV BP (A/L) 28.63 ml - LA ESV BP (A/L) index 15.39 ml/m2 - LA ESV SP 4CH (MOD) 18.4 ml - LA ESV SP 2CH (MOD) 29.82 ml - LA ESV BP (MOD) 25.89 ml - LA ESV BP (MOD) index 13.92 ml/m2 - Diastolic/Systolic Function Name Value Normal Range MV E-wave Vmax 1.1 m/sec - MV deceleration time 171.63 msec - MV A-wave Vmax 1.18 m/sec - MV E:A ratio 0.94 ratio - Aortic Valve Name Value Normal Range AV Vmax 1.37 m/sec - AV VTI 26.97 cm - AV peak gradient 7.5 mmHg - AV mean gradient 3.79 mmHg - LVOT diameter 2.03 cm - LVOT Vmax 1.09 m/sec - LVOT VTI 23.3 cm - LVOT peak gradient 4.76 mmHg - LVOT mean gradient 2.45 mmHg - SV LVOT 75.15 ml - DARINEL (continuity Vmax) 2.57 cm2 - ADRINEL (continuity VTI) 2.79 cm2 - Tricuspid Valve Name Value Normal Range TR Vmax 2.96 m/sec - TR peak gradient 35 mmHg - RAP 3 mmHg - RVSP 38 mmHg - IVC diameter 1.78 cm (1.2 - 2.3) Pulmonic Valve/Qp:Qs Name Value Normal Range PV Vmax 0.96 m/sec - PV peak gradient 3.68 mmHg - MI end-diastolic Vmax 1.42 m/sec - PV acceleration time 64.7 msec - Hurtado/IV: Voiding Method Condom Catheter IV Catheter Type [Left Forearm INT / Saline Lock ] IV Catheter Type [Left Triple Lumen Cath Subclavian] IV Catheter Type [Right INT / Saline Lock Antecubital] Active Medications - Current Medications Current Medications: Generic Name Dose Route Start Last Admin Trade Name Pravinq PRN Reason Stop Dose Admin Acetaminophen 650 mg 12/19/19 12:15 12/28/19 16:09 Tylenol PO 650 mg Q4H PRN Administration Fever >101 Lipase/Protease/Amylase 1 each 12/22/19 10:[address] 10,500 Unit FEEDTUBE PRN PRN For Clogged Feeding Tube Ascorbic Acid 500 mg 12/19/19 13:00 12/30/19 09:28 Vitamin C PO 500 mg Q12HR NIKOLAS Administration Atorvastatin Calcium 20 mg 12/19/19 22:00 12/29/19 21:17 Lipitor PO 20 mg QHS NIKOLAS Administration Bismuth Subsalicylate 524 mg 12/19/19 12:15 Pepto Bismol PO Q6H PRN Diarrhea Citalopram Hydrobromide 30 mg 12/19/19 14:00 12/30/19 09:29 Celexa PO 30 mg DAILY NIKOLAS Administration Ferrous Sulfate 308 mg 12/20/19 22:00 12/30/19 09:28 Ferrous Sulfate FEEDTUBE 308 mg BID NIKOLAS Administration Hydrophilic Ointment 1 applic 12/19/19 10:35 Vaseline Lip Therapy TP Q2HR PRN Dry Lips Ceftriaxone Sodium 2 gm in 100 mls @ 200 mls/hr 12/28/19 10:00 12/30/19 09:27 Rocephin/Ns 2 Gm/100 Ml IV 01/06/20 10:29 200 mls/hr Q24HR NIKOLAS Administration Lansoprazole 30 mg 12/23/19 10:00 12/30/19 09:29 Prevacid Solutab FEEDTUBE 30 mg BID NIKOLAS Administration Latanoprost 1 drops 12/19/19 22:00 12/29/19 21:22 Latanoprost 0.005% OD 1 drops QHS NIKOLAS Administration Lisinopril 10 mg 12/19/19 13:00 12/30/19 09:36 Zestril PO 10 mg QDAY NIKOLAS Administration Magnesium Oxide 400 mg 12/20/19 10:00 12/30/19 09:28 Mag-Ox PO 400 mg QDAY NIKOLAS Administration Multi-Ingred Cream/Lotion/Oil/Oint 1 applic 12/19/19 10:35 Artificial Tears Ophth Oint OU Q4HR PRN Dry Eye(s) Quetiapine Fumarate 50 mg 12/19/19 14:00 12/30/19 09:28 Seroquel PO 50 mg TID NIKOLAS Administration Simple Syrup 15 ml 12/22/19 09:51 Simple Syrup FEEDTUBE PRN PRN Hypoglycemia Simple Syrup 30 ml 12/22/19 10:05 Simple Syrup FEEDTUBE PRN PRN Hypoglycemia Sodium Bicarbonate 325 mg 12/22/19 10:05 Sodium Bicarbonate FEEDTUBE PRN PRN For Clogged Feeding Tube Sodium Chloride 10 ml 12/19/19 22:00 12/30/19 09:30 Sodium Chloride Flush Syringe 10 Ml IV 10 ml BID NIKOLAS Administration Sodium Chloride 10 ml 12/19/19 12:13 Sodium Chloride Flush Syringe 10 Ml IV PRN PRN LINE FLUSH Thiamine HCl 100 mg 12/20/19 10:00 12/30/19 09:28 Vitamin B-1 PO 100 mg DAILY NIKOLAS Administration Timolol Maleate 1 drops 12/19/19 22:00 12/30/19 09:29 Timoptic OU 1 drops BID NIKOLAS Administration Nutrition/Malnutrition Assess - Dietary Evaluation Nutrition/Malnutrition Findings: Nutrition Notes Start: 12/20/19 08:53 Freq: Status: Active Protocol: Document 12/24/19 13:33 LM (Rec: 12/24/19 13:38 LM -[email or web address]) Nutrition Notes Initial or Follow up Reassessment Current Diagnosis Acute Kidney Injury,COPD, Diabetes,Hypertension, Respiratory Failure,Stroke Other Pertinent Diagnosis GI bleed, encephalopathy, debility Current Diet Glucerna 1.2 at 65ml/hr Labs/Tests POC glu 179 Pertinent Medications Reviewed Height 5 ft 6 in Weight 76.3 kg [place] Body Weight (kg) 64.54 BMI 27.1 Weight Status Overweight Subjective/Other Information Glucerna running at goal and tolerating per RN. Percent of energy/protein needs met: 100%/100% Burn Absent Trauma Absent Current % PO Negligible Minimum of two criteria No physical signs of malnutrition #1 Nutrition Diagnosis Inadequate oral intake Diagnosis Progress(for reassessment Continues documentation) Is patient on ventilator? No Is Patient Ambulatory and/or Out of Bed No REE-([facility]-confined to bed) 8969.729 Calculation Used for Recommendations [facility] Additional Notes Protein: 60-90g (0.8-1.2g/kg) Fluid: 1 ml/kcal Nutrition Intervention Change Diet Order: TF Nutrition Support: Glucerna 1.2 at 65 ml/hr Flush 200 ml q4h for hypernatremia Flush 100 ml q4h once resolved Kcal 1,872 Protein (gm) 94 Fluid (mL) 1,256 Goal #1 TF tolerance Goal #2 Meet at least 75% of energy and protein needs via TF Anticipated Discharge Needs: TF Follow-Up By: 12/30/19 Additional Comments F/U for TF tolerance
--- NOTE | 2019-12-30 14:25 | Progress Note ---
Assessment and Plan Acute hypoxemic respiratory failure s/p MVS Acute upper GI bleed s/p EGD Oropharyngeal dysphagia s/p PEG Severe Sepsis with Shock Strep anginosus bacteremia: Diabetes mellitus type 2 Hypertension Metabolic acidosis/lactic acidosis Continue all supportive care as outlined Continue aspiration precautions Enteric nutrition via PEG Awaiting COVID-19 test results for discharge planning - COVID-19 testing pending re: ER exposure -once results are available, discharge to his facility if COVID-19 negative - supplemental oxygen as needed to keep O2 sat's > 90% - continue contact and droplet isolation and follow clinically due to COVID-19 exposure - prn bronchodilators with pulmonary hygiene per RT - mobility protocol, off loading, and skin assessment per protocol for pressure ulcer prevention - continue accuchecks with glycemic control per SSI for target BG < 180 mg/dl - GI & VTE prophylaxis with PPI & SCD's - Flu & pneumovax addressed per protocol - continue other care per attending / other consultants Subjective Date of service: 12/30/19 Principal diagnosis: Ac upper GI bleed; Shock; Ac hypoxemic resp failure; DM II; H/O HTN Interval history: Patient is seen today for: Acute upper GI bleed; Severe Sepsis with Shock; Acute hypoxemic respiratory failure s/p MVS; DM II; HTN; Metabolic acidosis/lactic acidosis Seen and examined at bedside; 24hour events reviewed; nursing and respiratory care staff consulted; no adverse overnight events reported to me; resting peacefully in bed; no gross G.I. bleeding; no emesis or overt aspiration, non- verbal; mpre awake, off supplemental oxygen Awaiting COVID-19 testing fro discharge planning. On IV Ceftriaxone Objective Vital Signs - 12hr 12/30/19 12/30/19 12/30/19 04:16 09:36 10:00 Temperature 99.7 F H Pulse Rate 89 96 H Respiratory 20 Rate Blood Pressure 122/78 122/81 O2 Sat by Pulse 95 99 Oximetry 12/30/19 11:13 Temperature 98.5 F Pulse Rate 98 H Respiratory 18 Rate Blood Pressure 127/76 O2 Sat by Pulse 95 Oximetry Constitutional: no acute distress Eyes: non-icteric ENT: oropharynx moist Neck: supple, no lymphadenopathy, no JVD Effort: normal Ascultation: Bilateral: diminished breath sounds, rhonchi Percussion: Bilateral: not dull Cardiovascular: regular rate and rhythm Gastrointestinal: normoactive bowel sounds, soft, non-tender, non-distended Integumentary: rash Extremities: no cyanosis, no edema, pulses normal Neurologic: pupils equal and round, other (mumbles sometimes appropriate replies to questions) Psychiatric: other (affect flat) CBC and BMP: 12/27/19 04:32 12/27/19 04:32 ABG, PT/INR, D-dimer: ABG ABG pH 7.432 pH Units (7.350-7.450) 12/20/19 12:15 ABG pCO2 36.0 mm Hg 12/20/19 12:15 ABG pO2 150.8 mm Hg (80.0-90.0) H 12/20/19 12:15 ABG O2 Saturation 98.9 % (95.0-99.0) 12/20/19 12:15 PT/INR, D-dimer PT 15.3 Sec. (12.2-14.9) H 12/19/19 09:14 INR 1.19 (0.87-1.13) H 12/19/19 09:14 Abnormal lab findings: Abnormal Labs 12/19/19 12/19/19 12/19/19 09:10 09:14 09:14 WBC 12.1 H RBC Hgb 10.0 L Hct 32.3 L MCV 81 L MCH 25 L MCHC 31 L RDW 17.7 H Lymph % (Auto) [place] % (Auto) [place] # 0.9 H Seg Neutrophils % 78.2 H Seg Neutrophils # 9.5 H PT 15.3 H INR 1.19 H ABG pH ABG pO2 ABG HCO3 ABG O2 Saturation ABG Base Excess ABG Hemoglobin Sodium Potassium Chloride Carbon Dioxide BUN Creatinine Glucose POC Glucose Lactic Acid Calcium Albumin Vancomycin Trough Crossmatch See Detail 12/19/19 12/19/19 12/19/19 09:14 09:14 10:05 WBC RBC Hgb Hct MCV MCH MCHC RDW Lymph % (Auto) [place] % (Auto) [place] # Seg Neutrophils % Seg Neutrophils # PT INR ABG pH ABG pO2 ABG HCO3 ABG O2 Saturation ABG Base Excess ABG Hemoglobin Sodium Potassium Chloride Carbon Dioxide 20 L BUN 55 H Creatinine Glucose 222 H POC Glucose 212 H Lactic Acid 3.10 H* Calcium Albumin 3.4 L Vancomycin Trough Crossmatch 12/19/19 12/19/1920 10:30 12:30 15:55 WBC RBC Hgb Hct MCV MCH MCHC RDW Lymph % (Auto) [place] % (Auto) [place] # Seg Neutrophils % Seg Neutrophils # PT INR ABG pH 7.277 L ABG pO2 195.1 H ABG HCO3 19.2 L ABG O2 Saturation 99.2 H ABG Base Excess -7.1 L ABG Hemoglobin 9.4 L Sodium Potassium Chloride Carbon Dioxide BUN Creatinine Glucose POC Glucose Lactic Acid 2.80 H* 5.10 H* Calcium Albumin Vancomycin Trough Crossmatch 12/20/19 12/20/19 12/20/19 04:20 04:59 04:59 WBC 11.3 H RBC 3.21 L Hgb 8.0 L Hct 26.0 L D MCV 81 L MCH 25 L MCHC 31 L RDW 17.7 H Lymph % (Auto) 12.2 L [place] % (Auto) 11.1 H [place] # 1.2 H Seg Neutrophils % 76.5 H Seg Neutrophils # 8.6 H PT INR ABG pH ABG pO2 139.7 H ABG HCO3 ABG O2 Saturation ABG Base Excess ABG Hemoglobin 9.2 L Sodium 147 H Potassium Chloride 113.7 H Carbon Dioxide BUN 29 H Creatinine 0.6 L D Glucose 172 H POC Glucose Lactic Acid Calcium Albumin Vancomycin Trough Crossmatch 12/20/19 12/21/19 12/21/19 12:15 04:38 04:38 WBC RBC 2.55 L Hgb 6.5 L Hct 20.9 L MCV 82 L MCH 26 L MCHC 31 L RDW 18.1 H Lymph % (Auto) [place] % (Auto) 10.8 H [place] # 0.9 H Seg Neutrophils % 70.8 H Seg Neutrophils # PT INR ABG pH ABG pO2 150.8 H ABG HCO3 ABG O2 Saturation ABG Base Excess ABG Hemoglobin 5.5 L Sodium 149 H Potassium 3.5 L Chloride 114.9 H Carbon Dioxide BUN 21 H Creatinine 0.5 L Glucose 114 H POC Glucose Lactic Acid Calcium Albumin Vancomycin Trough Crossmatch 12/21/19 12/22/19 12/22/19 23:02 10:34 10:34 WBC RBC 3.24 L Hgb 7.7 L 8.4 L Hct 24.8 L 27.0 L MCV 83 L MCH 26 L MCHC 31 L RDW 17.7 H Lymph % (Auto) [place] % (Auto) [place] # Seg Neutrophils % Seg Neutrophils # PT INR ABG pH ABG pO2 ABG HCO3 ABG O2 Saturation ABG Base Excess ABG Hemoglobin Sodium 147 H Potassium Chloride 112.3 H Carbon Dioxide 20 L BUN Creatinine 0.5 L Glucose 102 H POC Glucose Lactic Acid Calcium Albumin Vancomycin Trough Crossmatch 12/22/19 12/22/19 12/22/19 11:58 18:15 23:47 WBC RBC Hgb Hct MCV MCH MCHC RDW Lymph % (Auto) [place] % (Auto) [place] # Seg Neutrophils % Seg Neutrophils # PT INR ABG pH ABG pO2 ABG HCO3 ABG O2 Saturation ABG Base Excess ABG Hemoglobin Sodium Potassium Chloride Carbon Dioxide BUN Creatinine Glucose POC Glucose 126 H 114 H 121 H Lactic Acid Calcium Albumin Vancomycin Trough Crossmatch 12/23/19 12/23/19 12/23/19 05:46 06:38 06:38 WBC RBC 2.94 L Hgb 7.6 L Hct 23.8 L MCV 81 L MCH 26 L MCHC RDW 17.0 H Lymph % (Auto) [place] % (Auto) [place] # Seg Neutrophils % Seg Neutrophils # PT INR ABG pH ABG pO2 ABG HCO3 ABG O2 Saturation ABG Base Excess ABG Hemoglobin Sodium Potassium 3.3 L Chloride 107.5 H Carbon Dioxide BUN Creatinine 0.4 L Glucose 132 H POC Glucose 124 H Lactic Acid Calcium 8.1 L Albumin Vancomycin Trough Crossmatch 12/23/19 12/23/19 12/24/19 15:54 20:50 00:06 WBC RBC Hgb Hct MCV MCH MCHC RDW Lymph % (Auto) [place] % (Auto) [place] # Seg Neutrophils % Seg Neutrophils # PT INR ABG pH ABG pO2 ABG HCO3 ABG O2 Saturation ABG Base Excess ABG Hemoglobin Sodium Potassium Chloride Carbon Dioxide BUN Creatinine Glucose POC Glucose 150 H 135 H Lactic Acid Calcium Albumin Vancomycin Trough 21.4 H Crossmatch 12/24/19 12/24/19 12/25/19 05:34 18:28 05:31 WBC RBC Hgb Hct MCV MCH MCHC RDW Lymph % (Auto) [place] % (Auto) [place] # Seg Neutrophils % Seg Neutrophils # PT INR ABG pH ABG pO2 ABG HCO3 ABG O2 Saturation ABG Base Excess ABG Hemoglobin Sodium Potassium Chloride Carbon Dioxide BUN Creatinine Glucose POC Glucose 179 H 156 H 179 H Lactic Acid Calcium Albumin Vancomycin Trough Crossmatch 12/25/19 12/26/19 12/26/19 17:50 05:00 05:00 WBC 16.9 H RBC 2.91 L Hgb 7.3 L Hct 22.9 L MCV 79 L MCH 25 L MCHC RDW 17.7 H Lymph % (Auto) [place] % (Auto) [place] # Seg Neutrophils % Seg Neutrophils # PT INR ABG pH ABG pO2 ABG HCO3 ABG O2 Saturation ABG Base Excess ABG Hemoglobin Sodium 135 L D Potassium 3.1 L Chloride 96.6 L Carbon Dioxide BUN 7 L Creatinine 0.5 L Glucose 180 H POC Glucose 211 H Lactic Acid Calcium 8.0 L Albumin Vancomycin Trough Crossmatch 12/26/19 12/26/19 12/27/19 16:57 22:42 04:32 WBC 14.6 H RBC 2.95 L Hgb 7.4 L Hct 23.4 L MCV 79 L MCH 25 L MCHC RDW 18.4 H Lymph % (Auto) [place] % (Auto) [place] # Seg Neutrophils % Seg Neutrophils # PT INR ABG pH ABG pO2 ABG HCO3 ABG O2 Saturation ABG Base Excess ABG Hemoglobin Sodium Potassium Chloride Carbon Dioxide BUN Creatinine Glucose POC Glucose 117 H 174 H Lactic Acid Calcium Albumin Vancomycin Trough Crossmatch 12/27/19 12/27/19 12/29/19 04:32 05:59 06:48 WBC RBC Hgb Hct MCV MCH MCHC RDW Lymph % (Auto) [place] % (Auto) [place] # Seg Neutrophils % Seg Neutrophils # PT INR ABG pH ABG pO2 ABG HCO3 ABG O2 Saturation ABG Base Excess ABG Hemoglobin Sodium Potassium Chloride Carbon Dioxide BUN Creatinine 0.7 L Glucose 189 H POC Glucose 183 H 212 H Lactic Acid Calcium Albumin Vancomycin Trough Crossmatch 12/29/19 12/29/19 12/30/19 11:23 17:44 00:23 WBC RBC Hgb Hct MCV MCH MCHC RDW Lymph % (Auto) [place] % (Auto) [place] # Seg Neutrophils % Seg Neutrophils # PT INR ABG pH ABG pO2 ABG HCO3 ABG O2 Saturation ABG Base Excess ABG Hemoglobin Sodium Potassium Chloride Carbon Dioxide BUN Creatinine Glucose POC Glucose 170 H 168 H 145 H Lactic Acid Calcium Albumin Vancomycin Trough Crossmatch 12/30/19 06:26 WBC RBC Hgb Hct MCV MCH MCHC RDW Lymph % (Auto) [place] % (Auto) [place] # Seg Neutrophils % Seg Neutrophils # PT INR ABG pH ABG pO2 ABG HCO3 ABG O2 Saturation ABG Base Excess ABG Hemoglobin Sodium Potassium Chloride Carbon Dioxide BUN Creatinine Glucose POC Glucose 156 H Lactic Acid Calcium Albumin Vancomycin Trough Crossmatch Allied health notes reviewed: nursing
[2019-12-30] MEDS: LATANOPROST 0.005% OPHTH SOLN 2.5 ML OD SCH (21:08)
[2019-12-31] MEDS: FERROUS SULFATE 308 MG (62mg Elemental Iron) / 7 ML ELIXIR FEEDTUBE SCH ×2 (09:12→22:16)
[2019-12-31] MEDS: cefTRIAXone/NS 2 GM/100 ML 2 GM/100 ML BAG IV SCH (09:12)
[2019-12-31] MEDS: LANSOPRAZOLE 30 MG SOLUTAB FEEDTUBE SCH ×2 (09:13→22:18)
[2019-12-31] MEDS: QUEtiapine 25 MG TAB PO SCH ×3 (09:13→20:00)
[2019-12-31] MEDS: CITALOPRAM 10 MG TAB PO SCH (09:13)
[2019-12-31] MEDS: LISINOPRIL 10 MG TAB PO SCH (09:13)
[2019-12-31] MEDS: ASCORBIC ACID 500 MG TAB PO SCH ×2 (09:13→22:19)
[2019-12-31] MEDS: THIAMINE 100 MG TAB PO SCH (09:13)
[2019-12-31] MEDS: MAGNESIUM OXIDE 400 MG TAB PO SCH (09:13)
[2019-12-31] MEDS: TIMOLOL 0.5% OPHTH SOLN 5 ML OU SCH ×2 (09:15→22:19)
--- NOTE | 2019-12-31 10:33 | Progress Note ---
Assessment and Plan Acute hypoxemic respiratory failure s/p MVS Acute upper GI bleed s/p EGD Oropharyngeal dysphagia s/p PEG Severe Sepsis with Shock Strep anginosus bacteremia: Diabetes mellitus type 2 Hypertension Metabolic acidosis/lactic acidosis Continue all supportive care as outlined Continue aspiration precautions Enteric nutrition via PEG Awaiting COVID-19 test results for discharge planning Antibiotics to complete course - COVID-19 testing pending re: ER exposure -once results are available, discharge to his facility if COVID-19 negative - supplemental oxygen as needed to keep O2 sat's > 90% - continue contact and droplet isolation and follow clinically due to COVID-19 exposure - prn bronchodilators with pulmonary hygiene per RT - mobility protocol, off loading, and skin assessment per protocol for pressure ulcer prevention - continue accuchecks with glycemic control per SSI for target BG < 180 mg/dl - GI & VTE prophylaxis with PPI & SCD's - Flu & pneumovax addressed per protocol - continue other care per attending / other consultants Subjective Date of service: 12/31/19 Principal diagnosis: Ac upper GI bleed; Shock; Ac hypoxemic resp failure; DM II; H/O HTN Interval history: Patient is seen today for: Acute upper GI bleed; Severe Sepsis with Shock; Acute hypoxemic respiratory failure s/p MVS; DM II; HTN; Metabolic acidosis/lactic acidosis Seen and examined at bedside; 24hour events reviewed; nursing and respiratory care staff consulted; no adverse overnight events reported to me; resting peacefully in bed; no gross G.I. bleeding; no emesis or overt aspiration, non- verbal; more awake, off supplemental oxygen Awaiting COVID-19 testing for discharge planning. On IV Ceftriaxone to complete course on 01/16/2020 Objective Vital Signs - 12hr 12/30/19 12/31/19 23:24 04:58 Temperature 97.3 F L Pulse Rate 81 86 Respiratory 22 Rate Blood Pressure 153/84 126/87 O2 Sat by Pulse 96 96 Oximetry Constitutional: no acute distress Eyes: non-icteric ENT: oropharynx moist Neck: supple, no lymphadenopathy, no JVD Effort: normal Ascultation: Bilateral: diminished breath sounds, rhonchi Percussion: Bilateral: not dull Cardiovascular: regular rate and rhythm Gastrointestinal: normoactive bowel sounds, soft, non-tender, non-distended Integumentary: rash Extremities: no cyanosis, no edema, pulses normal Neurologic: pupils equal and round, other (mumbles ) Psychiatric: other (affect flat) CBC and BMP: 12/27/19 04:32 12/27/19 04:32 ABG, PT/INR, D-dimer: ABG ABG pH 7.432 pH Units (7.350-7.450) 12/20/19 12:15 ABG pCO2 36.0 mm Hg 12/20/19 12:15 ABG pO2 150.8 mm Hg (80.0-90.0) H 12/20/19 12:15 ABG O2 Saturation 98.9 % (95.0-99.0) 12/20/19 12:15 PT/INR, D-dimer PT 15.3 Sec. (12.2-14.9) H 12/19/19 09:14 INR 1.19 (0.87-1.13) H 12/19/19 09:14 Abnormal lab findings: Abnormal Labs 12/19/19 12/19/19 12/19/19 09:10 09:14 09:14 WBC 12.1 H RBC Hgb 10.0 L Hct 32.3 L MCV 81 L MCH 25 L MCHC 31 L RDW 17.7 H Lymph % (Auto) [place] % (Auto) [place] # 0.9 H Seg Neutrophils % 78.2 H Seg Neutrophils # 9.5 H PT 15.3 H INR 1.19 H ABG pH ABG pO2 ABG HCO3 ABG O2 Saturation ABG Base Excess ABG Hemoglobin Sodium Potassium Chloride Carbon Dioxide BUN Creatinine Glucose POC Glucose Lactic Acid Calcium Albumin Vancomycin Trough Crossmatch See Detail 12/19/19 12/19/19 12/19/19 09:14 09:14 10:05 WBC RBC Hgb Hct MCV MCH MCHC RDW Lymph % (Auto) [place] % (Auto) [place] # Seg Neutrophils % Seg Neutrophils # PT INR ABG pH ABG pO2 ABG HCO3 ABG O2 Saturation ABG Base Excess ABG Hemoglobin Sodium Potassium Chloride Carbon Dioxide 20 L BUN 55 H Creatinine Glucose 222 H POC Glucose 212 H Lactic Acid 3.10 H* Calcium Albumin 3.4 L Vancomycin Trough Crossmatch 12/19/19 12/19/19 12/19/19 10:30 12:30 15:55 WBC RBC Hgb Hct MCV MCH MCHC RDW Lymph % (Auto) [place] % (Auto) [place] # Seg Neutrophils % Seg Neutrophils # PT INR ABG pH 7.277 L ABG pO2 195.1 H ABG HCO3 19.2 L ABG O2 Saturation 99.2 H ABG Base Excess -7.1 L ABG Hemoglobin 9.4 L Sodium Potassium Chloride Carbon Dioxide BUN Creatinine Glucose POC Glucose Lactic Acid 2.80 H* 5.10 H* Calcium Albumin Vancomycin Trough Crossmatch 12/20/19 12/20/19 12/20/19 04:20 04:59 04:59 WBC 11.3 H RBC 3.21 L Hgb 8.0 L Hct 26.0 L D MCV 81 L MCH 25 L MCHC 31 L RDW 17.7 H Lymph % (Auto) 12.2 L [place] % (Auto) 11.1 H [place] # 1.2 H Seg Neutrophils % 76.5 H Seg Neutrophils # 8.6 H PT INR ABG pH ABG pO2 139.7 H ABG HCO3 ABG O2 Saturation ABG Base Excess ABG Hemoglobin 9.2 L Sodium 147 H Potassium Chloride 113.7 H Carbon Dioxide BUN 29 H Creatinine 0.6 L D Glucose 172 H POC Glucose Lactic Acid Calcium Albumin Vancomycin Trough Crossmatch 12/20/19 12/21/19 12/21/19 12:15 04:38 04:38 WBC RBC 2.55 L Hgb 6.5 L Hct 20.9 L MCV 82 L MCH 26 L MCHC 31 L RDW 18.1 H Lymph % (Auto) [place] % (Auto) 10.8 H [place] # 0.9 H Seg Neutrophils % 70.8 H Seg Neutrophils # PT INR ABG pH ABG pO2 150.8 H ABG HCO3 ABG O2 Saturation ABG Base Excess ABG Hemoglobin 5.5 L Sodium 149 H Potassium 3.5 L Chloride 114.9 H Carbon Dioxide BUN 21 H Creatinine 0.5 L Glucose 114 H POC Glucose Lactic Acid Calcium Albumin Vancomycin Trough Crossmatch 12/21/19 12/22/19 12/22/19 23:02 10:34 10:34 WBC RBC 3.24 L Hgb 7.7 L 8.4 L Hct 24.8 L 27.0 L MCV 83 L MCH 26 L MCHC 31 L RDW 17.7 H Lymph % (Auto) [place] % (Auto) [place] # Seg Neutrophils % Seg Neutrophils # PT INR ABG pH ABG pO2 ABG HCO3 ABG O2 Saturation ABG Base Excess ABG Hemoglobin Sodium 147 H Potassium Chloride 112.3 H Carbon Dioxide 20 L BUN Creatinine 0.5 L Glucose 102 H POC Glucose Lactic Acid Calcium Albumin Vancomycin Trough Crossmatch 12/22/19 12/22/19 12/22/19 11:58 18:15 23:47 WBC RBC Hgb Hct MCV MCH MCHC RDW Lymph % (Auto) [place] % (Auto) [place] # Seg Neutrophils % Seg Neutrophils # PT INR ABG pH ABG pO2 ABG HCO3 ABG O2 Saturation ABG Base Excess ABG Hemoglobin Sodium Potassium Chloride Carbon Dioxide BUN Creatinine Glucose POC Glucose 126 H 114 H 121 H Lactic Acid Calcium Albumin Vancomycin Trough Crossmatch 12/23/19 12/23/19 12/23/19 05:46 06:38 06:38 WBC RBC 2.94 L Hgb 7.6 L Hct 23.8 L MCV 81 L MCH 26 L MCHC RDW 17.0 H Lymph % (Auto) [place] % (Auto) [place] # Seg Neutrophils % Seg Neutrophils # PT INR ABG pH ABG pO2 ABG HCO3 ABG O2 Saturation ABG Base Excess ABG Hemoglobin Sodium Potassium 3.3 L Chloride 107.5 H Carbon Dioxide BUN Creatinine 0.4 L Glucose 132 H POC Glucose 124 H Lactic Acid Calcium 8.1 L Albumin Vancomycin Trough Crossmatch 12/23/19 12/23/19 12/24/19 15:54 20:50 00:06 WBC RBC Hgb Hct MCV MCH MCHC RDW Lymph % (Auto) [place] % (Auto) [place] # Seg Neutrophils % Seg Neutrophils # PT INR ABG pH ABG pO2 ABG HCO3 ABG O2 Saturation ABG Base Excess ABG Hemoglobin Sodium Potassium Chloride Carbon Dioxide BUN Creatinine Glucose POC Glucose 150 H 135 H Lactic Acid Calcium Albumin Vancomycin Trough 21.4 H Crossmatch 12/24/19 12/24/19 12/25/19 05:34 18:28 05:31 WBC RBC Hgb Hct MCV MCH MCHC RDW Lymph % (Auto) [place] % (Auto) [place] # Seg Neutrophils % Seg Neutrophils # PT INR ABG pH ABG pO2 ABG HCO3 ABG O2 Saturation ABG Base Excess ABG Hemoglobin Sodium Potassium Chloride Carbon Dioxide BUN Creatinine Glucose POC Glucose 179 H 156 H 179 H Lactic Acid Calcium Albumin Vancomycin Trough Crossmatch 12/25/19 12/26/19 12/26/19 17:50 05:00 05:00 WBC 16.9 H RBC 2.91 L Hgb 7.3 L Hct 22.9 L MCV 79 L MCH 25 L MCHC RDW 17.7 H Lymph % (Auto) [place] % (Auto) [place] # Seg Neutrophils % Seg Neutrophils # PT INR ABG pH ABG pO2 ABG HCO3 ABG O2 Saturation ABG Base Excess ABG Hemoglobin Sodium 135 L D Potassium 3.1 L Chloride 96.6 L Carbon Dioxide BUN 7 L Creatinine 0.5 L Glucose 180 H POC Glucose 211 H Lactic Acid Calcium 8.0 L Albumin Vancomycin Trough Crossmatch 12/26/19 12/26/19 12/27/19 16:57 22:42 04:32 WBC 14.6 H RBC 2.95 L Hgb 7.4 L Hct 23.4 L MCV 79 L MCH 25 L MCHC RDW 18.4 H Lymph % (Auto) [place] % (Auto) [place] # Seg Neutrophils % Seg Neutrophils # PT INR ABG pH ABG pO2 ABG HCO3 ABG O2 Saturation ABG Base Excess ABG Hemoglobin Sodium Potassium Chloride Carbon Dioxide BUN Creatinine Glucose POC Glucose 117 H 174 H Lactic Acid Calcium Albumin Vancomycin Trough Crossmatch 12/27/19 12/27/19 12/29/19 04:32 05:59 06:48 WBC RBC Hgb Hct MCV MCH MCHC RDW Lymph % (Auto) [place] % (Auto) [place] # Seg Neutrophils % Seg Neutrophils # PT INR ABG pH ABG pO2 ABG HCO3 ABG O2 Saturation ABG Base Excess ABG Hemoglobin Sodium Potassium Chloride Carbon Dioxide BUN Creatinine 0.7 L Glucose 189 H POC Glucose 183 H 212 H Lactic Acid Calcium Albumin Vancomycin Trough Crossmatch 12/29/19 12/29/19 12/30/19 11:23 17:44 00:23 WBC RBC Hgb Hct MCV MCH MCHC RDW Lymph % (Auto) [place] % (Auto) [place] # Seg Neutrophils % Seg Neutrophils # PT INR ABG pH ABG pO2 ABG HCO3 ABG O2 Saturation ABG Base Excess ABG Hemoglobin Sodium Potassium Chloride Carbon Dioxide BUN Creatinine Glucose POC Glucose 170 H 168 H 145 H Lactic Acid Calcium Albumin Vancomycin Trough Crossmatch 12/30/19 06:26 WBC RBC Hgb Hct MCV MCH MCHC RDW Lymph % (Auto) [place] % (Auto) [place] # Seg Neutrophils % Seg Neutrophils # PT INR ABG pH ABG pO2 ABG HCO3 ABG O2 Saturation ABG Base Excess ABG Hemoglobin Sodium Potassium Chloride Carbon Dioxide BUN Creatinine Glucose POC Glucose 156 H Lactic Acid Calcium Albumin Vancomycin Trough Crossmatch Prior PFT's, [place] of legs: image reviewed Allied health notes reviewed: nursing
--- NOTE | 2019-12-31 16:52 | Progress Note ---
Assessment and Plan Assessment and plan: Acute upper GI bleed. Patient underwent endoscopy which revealed esophagitis in the lower third of the esophagus. There was a cratered, clean based ulcer in the incisura of the stomach. No high risk bleeding stigmata was seen. Continue to monitor H&H and transfuse for hemoglobin less than 7. Continue PPI. Acute hypoxic respiratory failure. Cont. O2 to maintain sats Diabetes mellitus type 2. Continue Accu-Cheks and sliding scale insulin. Hypertension. Patient actually hypotensive given the bleed. Metabolic acidosis/lactic acidosis. Etiology likely secondary to hypotension/hypoperfusion from GI bleed. Patient with no obvious signs of infection. Patient remains asymptomatic, however his facility won't take him back without negative test. Agree with testing for now, though his risk of infection is extremely low. -anticipate to d/c on ceftriaxone 2 g IV q day total 14 days till 01/06/2020. Discussed w field nurse case manager 12/29/2019. Patient still with low-grade fever yesterday of 100.5. Patient currently satting 98% on room air. Patient continues to remain asymptomatic, however his facility won't take him back without negative test. Await for negative COVID-19 test. 12/30/2019. Patient still with low-grade fever 100.5. Patient requiring no oxygen. Patient continues to remain asymptomatic, however his facility won't take him back without negative test. Await for negative COVID-19 test. 12/31/19 Patient requiring no oxygen. Patient continues to remain asymptomatic, however his facility won't take him back without negative test. Await for negative COVID-19 test. Patient requiring no oxygen. Patient continues to remain asymptomatic, however his facility won't take him back without negative test. Await for negative COVID-19 test. History Interval history: he patient is a 54 yo male presenting from [facility] with melena; pt with h/o cva, non-verbal, with chronic peg tube. h/o gastric ulcer from prior endoscopies. upon arrival, pt had large episode of emesis with clots. intubated for airway protection. hypotensive initially and improved with fluid boluses. Due to lack of resources with insufficient PPE and in an effort to preserve PPE that we have remaining, patient's visit was done by telephone. Hospitalist Physical - Constitutional Vitals: Temp Pulse Resp BP Pulse Ox 97.6 F 77 20 125/84 97 12/31/19 11:49 12/31/19 11:49 12/31/19 11:49 12/31/19 11:49 12/31/19 11:49 General appearance: Present: other (Orally intubatedon mechanical ventilation) - EENT Eyes: Present: PERRL, EOM intact ENT: hearing intact, clear oral mucosa, dentition normal - Neck Neck: Present: supple, normal ROM - Respiratory Respiratory effort: normal Respiratory: bilateral: CTA - Cardiovascular Rhythm: regular Heart Sounds: Present: S1 & S2. Absent: gallop, rub - Extremities Extremities: no ischemia, No edema, Full ROM - Abdominal General gastrointestinal: soft, non-tender, non-distended, normal bowel sounds - Integumentary Integumentary: Present: clear, warm, dry - Neurologic Neurologic: CNII-XII intact, moves all extremities Results - Labs CBC & Chem 7: 12/27/19 04:32 12/27/19 04:32 Labs: Laboratory Last Values WBC 14.6 K/mm3 (4.5-11.0) H 12/27/19 04:32 RBC 2.95 M/mm3 (3.65-5.03) L 12/27/19 04:32 Hgb 7.4 gm/dl (11.8-15.2) L 12/27/19 04:32 Hct 23.4 % (35.5-45.6) L 12/27/19 04:32 MCV 79 fl (84-94) L 12/27/19 04:32 MCH 25 pg (28-32) L 12/27/19 04:32 MCHC 32 % (32-34) 12/27/19 04:32 RDW 18.4 % (13.2-15.2) H 12/27/19 04:32 Plt Count 266 K/mm3 (140-440) 12/27/19 04:32 Lymph % (Auto) 16.7 % (13.4-35.0) 12/21/19 04:38 Gordon % (Auto) 10.8 % (0.0-7.3) H 12/21/19 04:38 Eos % (Auto) 1.2 % (0.0-4.3) 12/21/19 04:38 Baso % (Auto) 0.5 % (0.0-1.8) 12/21/19 04:38 Lymph # 1.4 K/mm3 (1.2-5.4) 12/21/19 04:38 Gordon # 0.9 K/mm3 (0.0-0.8) H 12/21/19 04:38 Eos # 0.1 K/mm3 (0.0-0.4) 12/21/19 04:38 Baso # 0.0 K/mm3 (0.0-0.1) 12/21/19 04:38 Seg Neutrophils % 70.8 % (40.0-70.0) H 12/21/19 04:38 Seg Neutrophils # 6.0 K/mm3 (1.8-7.7) 12/21/19 04:38 PT 15.3 Sec. (12.2-14.9) H 12/19/19 09:14 INR 1.19 (0.87-1.13) H 12/19/19 09:14 APTT 26.4 Sec. (24.2-36.6) 12/19/19 09:14 ABG pH 7.432 pH Units (7.350-7.450) 12/20/19 12:15 ABG pCO2 36.0 mm Hg 12/20/19 12:15 ABG pO2 150.8 mm Hg (80.0-90.0) H 12/20/19 12:15 ABG HCO3 23.5 mmol/L (20.0-26.0) 12/20/19 12:15 ABG O2 Saturation 98.9 % (95.0-99.0) 12/20/19 12:15 ABG O2 Content 7.8 (0.0-44) 12/20/19 12:15 ABG Base Excess -0.8 mmol/L (-2.0-3.0) 12/20/19 12:15 ABG Hemoglobin 5.5 gm/dl (14.0-18.0) L 12/20/19 12:15 ABG Carboxyhemoglobin 1.9 % (0.0-5.0) 12/20/19 12:15 ABG Methemoglobin 0.5 % (0.0-1.5) 12/20/19 12:15 Oxyhemoglobin 96.5 % (95.0-99.0) 12/20/19 12:15 FiO2 35 % 12/20/19 12:15 Sodium 137 mmol/L (137-145) 12/27/19 04:32 Potassium 4.0 mmol/L (3.6-5.0) D 12/27/19 04:32 Chloride 103.3 mmol/L (98-107) 12/27/19 04:32 Carbon Dioxide 23 mmol/L (22-30) 12/27/19 04:32 Anion Gap 15 mmol/L 12/27/19 04:32 BUN 11 mg/dL (9-20) 12/27/19 04:32 Creatinine 0.7 mg/dL (0.8-1.5) L 12/27/19 04:32 Estimated GFR > 60 ml/min 12/27/19 04:32 BUN/Creatinine Ratio 16 % 12/27/19 04:32 Glucose 189 mg/dL (75-100) H 12/27/19 04:32 POC Glucose 156 (70-105) H 12/30/19 06:26 Lactic Acid 5.10 mmol/L (0.7-2.0) H* 12/19/19 15:55 Calcium 8.4 mg/dL (8.4-10.2) 12/27/19 04:32 Magnesium 2.00 mg/dL (1.7-2.3) 12/19/19 09:14 Total Bilirubin 0.20 mg/dL (0.1-1.2) 12/19/19 09:14 AST 13 units/L (5-40) 12/19/19 09:14 ALT 11 units/L (7-56) 12/19/19 09:14 Alkaline Phosphatase 85 units/L (35-129) 12/19/19 09:14 Ammonia 35.0 umol/L (25-60) 12/19/19 09:14 Total Protein 6.6 g/dL (6.3-8.2) 12/19/19 09:14 Albumin 3.4 g/dL (3.9-5) L 12/19/19 09:14 Albumin/Globulin Ratio 1.1 % 12/19/19 09:14 Lipase 49 units/L (13-60) 12/19/19 09:14 Urine Color Yellow (Yellow) 12/19/19 10:02 Urine Turbidity Slightly-cloudy (Clear) 12/19/19 10:02 Urine pH 5.0 (5.0-7.0) 12/19/19 10:02 Ur Specific Russell 1.024 (1.003-1.030) 12/19/19 10:02 Urine Protein 30 mg/dl mg/dL (Negative) 12/19/19 10:02 Urine Glucose (UA) 50 mg/dL (Negative) 12/19/19 10:02 Urine Ketones Neg mg/dL (Negative) 12/19/19 10:02 Urine Blood Neg (Negative) 12/19/19 10:02 Urine Nitrite Neg (Negative) 12/19/19 10:02 Urine Bilirubin Neg (Negative) 12/19/19 10:02 Urine Urobilinogen < 2.0 mg/dL (<2.0) 12/19/19 10:02 Ur Leukocyte Esterase Neg (Negative) 12/19/19 10:02 Urine WBC (Auto) 2.0 /HPF (0.0-6.0) 12/19/19 10:02 Urine RBC (Auto) 1.0 /HPF (0.0-6.0) 12/19/19 10:02 U Epithel Cells (Auto) < 1.0 /HPF (0-13.0) 12/19/19 10:02 Hyaline Casts 11 /LPF 12/19/19 10:02 Urine Mucus 2+ /HPF 12/19/19 10:02 Urine Sperm Few /HPF (MEDICAL RESEARCHER) 12/19/19 10:02 Vancomycin Trough 13.0 ug/mL (5.0-20.0) 12/27/19 20:46 Random Vancomycin 7.5 ug/mL (0-40.0) 12/21/19 23:02 Blood Type O POSITIVE 12/19/19 09:10 Antibody Screen Negative 12/19/19 09:10 Crossmatch See Detail 12/19/19 09:10 - Diagnostic Impressions Diagnostic Impressions: Echocardiogram 12/22/19 17:57 Transthoracic Echocardiogram Indication: R/O Endocarditis BP: 133/79 HR: 81 Conclusions *Global left ventricular systolic function is normal. *Mild concentric left ventricular hypertrophy is observed. *The estimated ejection fraction is 50-55%. *Abnormal left ventricular diastolic filling is observed, consistent with impaired relaxation. *The right ventricular global systolic function is mildly reduced. *There is no evidence of aortic regurgitation. *There is trace of mitral regurgitation. *There is trace tricuspid regurgitation. *The right ventricular systolic pressure is calculated at 38 mmHg. *There is trace pulmonic regurgitation. Findings Left Ventricle: The left ventricular chamber size is normal. Mild concentric left ventricular hypertrophy is observed. Global left ventricular systolic function is normal. The estimated ejection fraction is 50-55%. Abnormal left ventricular diastolic filling is observed, consistent with impaired relaxation. Left Atrium: The left atrial chamber size is normal. Right Ventricle: The right ventricular cavity size is normal. The right ventricular global systolic function is mildly reduced. Right Atrium: The right atrial cavity size is normal. Aortic Valve: The aortic valve is trileaflet. There is no evidence of aortic regurgitation. Mitral Valve: The mitral valve leaflets are mildly thickened. There is trace of mitral regurgitation. Tricuspid Valve: The tricuspid valve leaflets are normal. There is trace tricuspid regurgitation. The right ventricular systolic pressure is calculated at 38 mmHg. Pulmonic Valve: The pulmonic valve appears normal. There is trace pulmonic regurgitation. Pericardium: There is no pericardial effusion. Aorta: There is no dilatation of the ascending aorta. There is no dilatation of the aortic root. Venous: The inferior vena cava appears normal in size. There is a greater than 50% respiratory change in the inferior vena cava dimension. Measurements Chambers 2D Name Value Normal Range IVSd (2D) 1.33 cm (0.6 - 1.1) LVPWd (2D) 1.29 cm (0.6 - 1.1) LVIDd (2D) 3.1 cm (3.7 - 5.6) LVIDs (2D) 2.26 cm (2 - 3.8) LV FS (2D) 27.25 % - EF Teichholz (2D) 54.5 % - Ao root diameter (2D) 2.84 cm (2 - 3.7) Volumes/Mass Name Value Normal Range LA ESV SP 4CH (A/L) 20.15 ml - LA ESV SP 2CH (A/L) 33.14 ml - LA ESV BP (A/L) 28.63 ml - LA ESV BP (A/L) index 15.39 ml/m2 - LA ESV SP 4CH (MOD) 18.4 ml - LA ESV SP 2CH (MOD) 29.82 ml - LA ESV BP (MOD) 25.89 ml - LA ESV BP (MOD) index 13.92 ml/m2 - Diastolic/Systolic Function Name Value Normal Range MV E-wave Vmax 1.1 m/sec - MV deceleration time 171.63 msec - MV A-wave Vmax 1.18 m/sec - MV E:A ratio 0.94 ratio - Aortic Valve Name Value Normal Range AV Vmax 1.37 m/sec - AV VTI 26.97 cm - AV peak gradient 7.5 mmHg - AV mean gradient 3.79 mmHg - LVOT diameter 2.03 cm - LVOT Vmax 1.09 m/sec - LVOT VTI 23.3 cm - LVOT peak gradient 4.76 mmHg - LVOT mean gradient 2.45 mmHg - SV LVOT 75.15 ml - DARINEL (continuity Vmax) 2.57 cm2 - DARINEL (continuity VTI) 2.79 cm2 - Tricuspid Valve Name Value Normal Range TR Vmax 2.96 m/sec - TR peak gradient 35 mmHg - RAP 3 mmHg - RVSP 38 mmHg - IVC diameter 1.78 cm (1.2 - 2.3) Pulmonic Valve/Qp:Qs Name Value Normal Range PV Vmax 0.96 m/sec - PV peak gradient 3.68 mmHg - FL end-diastolic Vmax 1.42 m/sec - PV acceleration time 64.7 msec - NDUM: 12/24/19 1217 Amended Report Transthoracic Echocardiogram Indication: R/O Endocarditis BP: 133/79 HR: 81 Conclusions *Global left ventricular systolic function is normal. *Mild concentric left ventricular hypertrophy is observed. *The estimated ejection fraction is 50-55%. *Abnormal left ventricular diastolic filling is observed, consistent with impaired relaxation. *The right ventricular global systolic function is mildly reduced. *There is no evidence of aortic regurgitation. *There is trace of mitral regurgitation. *There is trace tricuspid regurgitation. *The right ventricular systolic pressure is calculated at 38 mmHg. *There is trace pulmonic regurgitation. *No obvious endocardtis noted on mitral and aortic and tricuspid valve, if clinically indicated suggest JUAN Findings Left Ventricle: The left ventricular chamber size is normal. Mild concentric left ventricular hypertrophy is observed. Global left ventricular systolic function is normal. The estimated ejection fraction is 50-55%. Abnormal left ventricular diastolic filling is observed, consistent with impaired relaxation. Left Atrium: The left atrial chamber size is normal. Right Ventricle: The right ventricular cavity size is normal. The right ventricular global systolic function is mildly reduced. Right Atrium: The right atrial cavity size is normal. Aortic Valve: The aortic valve is trileaflet. There is no evidence of aortic regurgitation. Mitral Valve: The mitral valve leaflets are mildly thickened. There is trace of mitral regurgitation. Tricuspid Valve: The tricuspid valve leaflets are normal. There is trace tricuspid regurgitation. The right ventricular systolic pressure is calculated at 38 mmHg. Pulmonic Valve: The pulmonic valve appears normal. There is trace pulmonic regurgitation. Pericardium: There is no pericardial effusion. Aorta: There is no dilatation of the ascending aorta. There is no dilatation of the aortic root. Venous: The inferior vena cava appears normal in size. There is a greater than 50% respiratory change in the inferior vena cava dimension. Measurements Chambers 2D Name Value Normal Range IVSd (2D) 1.33 cm (0.6 - 1.1) LVPWd (2D) 1.29 cm (0.6 - 1.1) LVIDd (2D) 3.1 cm (3.7 - 5.6) LVIDs (2D) 2.26 cm (2 - 3.8) LV FS (2D) 27.25 % - EF Teichholz (2D) 54.5 % - Ao root diameter (2D) 2.84 cm (2 - 3.7) Volumes/Mass Name Value Normal Range LA ESV SP 4CH (A/L) 20.15 ml - LA ESV SP 2CH (A/L) 33.14 ml - LA ESV BP (A/L) 28.63 ml - LA ESV BP (A/L) index 15.39 ml/m2 - LA ESV SP 4CH (MOD) 18.4 ml - LA ESV SP 2CH (MOD) 29.82 ml - LA ESV BP (MOD) 25.89 ml - LA ESV BP (MOD) index 13.92 ml/m2 - Diastolic/Systolic Function Name Value Normal Range MV E-wave Vmax 1.1 m/sec - MV deceleration time 171.63 msec - MV A-wave Vmax 1.18 m/sec - MV E:A ratio 0.94 ratio - Aortic Valve Name Value Normal Range AV Vmax 1.37 m/sec - AV VTI 26.97 cm - AV peak gradient 7.5 mmHg - AV mean gradient 3.79 mmHg - LVOT diameter 2.03 cm - LVOT Vmax 1.09 m/sec - LVOT VTI 23.3 cm - LVOT peak gradient 4.76 mmHg - LVOT mean gradient 2.45 mmHg - SV LVOT 75.15 ml - DARINEL (continuity Vmax) 2.57 cm2 - DARINEL (continuity VTI) 2.79 cm2 - Tricuspid Valve Name Value Normal Range TR Vmax 2.96 m/sec - TR peak gradient 35 mmHg - RAP 3 mmHg - RVSP 38 mmHg - IVC diameter 1.78 cm (1.2 - 2.3) Pulmonic Valve/Qp:Qs Name Value Normal Range PV Vmax 0.96 m/sec - PV peak gradient 3.68 mmHg - FL end-diastolic Vmax 1.42 m/sec - PV acceleration time 64.7 msec - Hurtado/IV: Voiding Method Condom Catheter IV Catheter Type [Left Forearm INT / Saline Lock ] IV Catheter Type [Left Triple Lumen Cath Subclavian] IV Catheter Type [Right INT / Saline Lock Antecubital] Active Medications - Current Medications Current Medications: Generic Name Dose Route Start Last Admin Trade Name Pravinq PRN Reason Stop Dose Admin Acetaminophen 650 mg 12/19/19 12:15 12/28/19 16:09 Tylenol PO 650 mg Q4H PRN Administration Fever >101 Lipase/Protease/Amylase 1 each 12/22/19 10:05 Pancreaze 10,500 Unit FEEDTUBE PRN PRN For Clogged Feeding Tube Ascorbic Acid 500 mg 12/19/19 13:00 12/31/19 09:13 Vitamin C PO 500 mg Q12HR NIKOLAS Administration Atorvastatin Calcium 20 mg 12/19/19 22:00 12/30/19 21:06 Lipitor PO 20 mg QHS NIKOLAS Administration Bismuth Subsalicylate 524 mg 12/19/19 12:15 Pepto Bismol PO Q6H PRN Diarrhea Citalopram Hydrobromide 30 mg 12/19/19 14:00 12/31/19 09:13 Celexa PO 30 mg DAILY NIKOLAS Administration Ferrous Sulfate 308 mg 12/20/19 22:00 12/31/19 09:12 Ferrous Sulfate FEEDTUBE 308 mg BID NIKOLAS Administration Hydrophilic Ointment 1 applic 12/19/19 10:35 Vaseline Lip Therapy TP Q2HR PRN Dry Lips Ceftriaxone Sodium 2 gm in 100 mls @ 200 mls/hr 12/28/19 10:00 12/31/19 09:12 Rocephin/Ns 2 Gm/100 Ml IV 01/06/20 10:29 200 mls/hr Q24HR NIKOLAS Administration Lansoprazole 30 mg 12/23/19 10:00 12/31/19 09:13 Prevacid Solutab FEEDTUBE 30 mg BID NIKOLAS Administration Latanoprost 1 drops 12/19/19 22:00 12/30/19 21:08 Latanoprost 0.005% OD 1 drops QHS NIKOLAS Administration Lisinopril 10 mg 12/19/19 13:00 12/31/19 09:13 Zestril PO 10 mg QDAY NIKOLAS Administration Magnesium Oxide 400 mg 12/20/19 10:00 12/31/19 09:13 Mag-Ox PO 400 mg QDAY NIKOLAS Administration Multi-Ingred Cream/Lotion/Oil/Oint 1 applic 12/19/19 10:35 Artificial Tears Ophth Oint OU Q4HR PRN Dry Eye(s) Quetiapine Fumarate 50 mg 12/19/19 14:00 12/31/19 13:14 Seroquel PO 50 mg TID NIKOLAS Administration Simple Syrup 15 ml 12/22/19 09:51 Simple Syrup FEEDTUBE PRN PRN Hypoglycemia Simple Syrup 30 ml 12/22/19 10:05 Simple Syrup FEEDTUBE PRN PRN Hypoglycemia Sodium Bicarbonate 325 mg 12/22/19 10:05 Sodium Bicarbonate FEEDTUBE PRN PRN For Clogged Feeding Tube Sodium Chloride 10 ml 12/19/19 22:00 12/31/19 09:15 Sodium Chloride Flush Syringe 10 Ml IV 10 ml BID NIKOLAS Administration Sodium Chloride 10 ml 12/19/19 12:13 Sodium Chloride Flush Syringe 10 Ml IV PRN PRN LINE FLUSH Thiamine HCl 100 mg 12/20/19 10:00 12/31/19 09:13 Vitamin B-1 PO 100 mg DAILY NIKOLAS Administration Timolol Maleate 1 drops 12/19/19 22:00 12/31/19 09:15 Timoptic OU 1 drops BID NIKOLAS Administration Nutrition/Malnutrition Assess - Dietary Evaluation Nutrition/Malnutrition Findings: Nutrition Notes Start: 12/20/19 08:53 Freq: Status: Active Protocol: Document 12/31/19 11:45 LM (Rec: 12/31/19 11:54 LM [email or web address]) Nutrition Notes Initial or Follow up Reassessment Current Diagnosis Acute Kidney Injury,COPD, Diabetes,Hypertension, Respiratory Failure,Stroke Other Pertinent Diagnosis GI bleed, encephalopathy, debility Current Diet Mech soft + Cyclic TF Glucerna 1.2 at 65ml/hr Labs/Tests POC glu 156 Pertinent Medications Mag-Ox Height 5 ft 6 in Weight 74.7 kg Sixes Body Weight (kg) 64.54 BMI 26.6 Weight Status Overweight Subjective/Other Information Per RN, pt has been eating. Pt ate a quarter of breakfast this AM and had 50% intakes yesterday. Pt tolerating Cylic TF. Percent of energy/protein needs met: 96%/100% (38% of meals + cyclic TF Burn Absent Trauma Absent GI Symptoms Other Current % PO Negligible Minimum of two criteria No physical signs of malnutrition #1 Nutrition Diagnosis Inadequate oral intake As Evidenced by Signs and Symptoms Pt's diet advanced to mech soft with cyclic TF Diagnosis Progress(for reassessment Improved documentation) Is patient on ventilator? No Is Patient Ambulatory and/or Out of Bed No REE-([facility]-confined to bed) [phone] Calculation Used for Recommendations [facility] Additional Notes Protein: 60-90g (0.8-1.2g/kg) Fluid: 1 ml/kcal Nutrition Intervention Change Diet Order: Mechanical soft with cyclic TF Nutrition Support: Cyclic TF from 7 PM to 7 AM ( 12 hr) Glucerna 1.2 at 65 ml/ hr Flush 50 ml q4h Kcal 936 Protein (gm) 47 Fluid (mL) 628 Goal #1 TF tolerance Goal #2 Meet at least 75% of energy and protein needs via TF and mech soft diet Anticipated Discharge Needs: TF and mech soft diet Follow-Up By: 01/03/20 Additional Comments F/U for intakes, TF tolerance
[2019-12-31] MEDS: LATANOPROST 0.005% OPHTH SOLN 2.5 ML OD SCH (22:16)
[2020-01-01] MEDS: LISINOPRIL 10 MG TAB PO SCH (09:01)
[2020-01-01] MEDS: FERROUS SULFATE 308 MG (62mg Elemental Iron) / 7 ML ELIXIR FEEDTUBE SCH ×2 (09:01→22:21)
[2020-01-01] MEDS: ASCORBIC ACID 500 MG TAB PO SCH ×2 (09:01→22:21)
[2020-01-01] MEDS: CITALOPRAM 10 MG TAB PO SCH (09:02)
[2020-01-01] MEDS: THIAMINE 100 MG TAB PO SCH (09:02)
[2020-01-01] MEDS: QUEtiapine 25 MG TAB PO SCH ×3 (09:02→22:21)
[2020-01-01] MEDS: MAGNESIUM OXIDE 400 MG TAB PO SCH (09:02)
[2020-01-01] MEDS: LANSOPRAZOLE 30 MG SOLUTAB FEEDTUBE SCH ×2 (09:03→22:21)
[2020-01-01] MEDS: TIMOLOL 0.5% OPHTH SOLN 5 ML OU SCH ×2 (09:03→22:22)
--- NOTE | 2020-01-01 09:03 | Progress Note ---
Assessment and Plan Assessment and plan: Acute upper GI bleed. Patient underwent endoscopy which revealed esophagitis in the lower third of the esophagus. There was a cratered, clean based ulcer in the incisura of the stomach. No high risk bleeding stigmata was seen. Continue to monitor H&H and transfuse for hemoglobin less than 7. Continue PPI. Acute hypoxic respiratory failure. Cont. O2 to maintain sats Diabetes mellitus type 2. Continue Accu-Cheks and sliding scale insulin. Hypertension. Patient actually hypotensive given the bleed. Metabolic acidosis/lactic acidosis. Etiology likely secondary to hypotension/hypoperfusion from GI bleed. Patient with no obvious signs of infection. Patient remains asymptomatic, however his facility won't take him back without negative test. Agree with testing for now, though his risk of infection is extremely low. -anticipate to d/c on ceftriaxone 2 g IV q day total 14 days till 01/06/2020. Discussed w case specialist 12/29/2019. Patient still with low-grade fever yesterday of 100.5. Patient currently satting 98% on room air. Patient continues to remain asymptomatic, however his facility won't take him back without negative test. Await for negative COVID-19 test. 12/30/2019. Patient still with low-grade fever 100.5. Patient requiring no oxygen. Patient continues to remain asymptomatic, however his facility won't take him back without negative test. Await for negative COVID-19 test. 12/31/19 Patient requiring no oxygen. Patient continues to remain asymptomatic, however his facility won't take him back without negative test. Await for negative COVID-19 test. 01/01/20 Patient requiring no oxygen. Patient continues to remain asymptomatic, however his facility won't take him back without negative test. Await for negative COVID-19 test. History Interval history: The patient is a 54 yo male presenting from long term with melena; pt with h/o cva, non-verbal, with chronic peg tube. h/o gastric ulcer from prior endoscopies. upon arrival, pt had large episode of emesis with clots. intubated for airway protection. hypotensive initially and improved with fluid boluses. Due to lack of resources with insufficient PPE and in an effort to preserve PPE that we have remaining, patient's visit was done by telephone. Hospitalist Physical - Constitutional Vitals: Temp Pulse Resp BP Pulse Ox 98.5 F 85 20 130/83 96 01/01/20 04:32 01/01/20 04:32 01/01/20 04:32 01/01/20 04:32 01/01/20 04:32 General appearance: Present: other (Orally intubatedon mechanical ventilation) - EENT Eyes: Present: PERRL, EOM intact ENT: hearing intact, clear oral mucosa, dentition normal - Neck Neck: Present: supple, normal ROM - Respiratory Respiratory effort: normal Respiratory: bilateral: CTA - Cardiovascular Rhythm: regular Heart Sounds: Present: S1 & S2. Absent: gallop, rub - Extremities Extremities: no ischemia, No edema, Full ROM - Abdominal General gastrointestinal: soft, non-tender, non-distended, normal bowel sounds - Integumentary Integumentary: Present: clear, warm, dry - Neurologic Neurologic: CNII-XII intact, moves all extremities Results - Labs CBC & Chem 7: 12/27/19 04:32 12/27/19 04:32 Labs: Laboratory Last Values WBC 14.6 K/mm3 (4.5-11.0) H 12/27/19 04:32 RBC 2.95 M/mm3 (3.65-5.03) L 12/27/19 04:32 Hgb 7.4 gm/dl (11.8-15.2) L 12/27/19 04:32 Hct 23.4 % (35.5-45.6) L 12/27/19 04:32 MCV 79 fl (84-94) L 12/27/19 04:32 MCH 25 pg (28-32) L 12/27/19 04:32 MCHC 32 % (32-34) 12/27/19 04:32 RDW 18.4 % (13.2-15.2) H 12/27/19 04:32 Plt Count 266 K/mm3 (140-440) 12/27/19 04:32 Lymph % (Auto) 16.7 % (13.4-35.0) 12/21/19 04:38 [place] % (Auto) 10.8 % (0.0-7.3) H 12/21/19 04:38 Eos % (Auto) 1.2 % (0.0-4.3) 12/21/19 04:38 Baso % (Auto) 0.5 % (0.0-1.8) 12/21/19 04:38 Lymph # 1.4 K/mm3 (1.2-5.4) 12/21/19 04:38 [place] # 0.9 K/mm3 (0.0-0.8) H 12/21/19 04:38 Eos # 0.1 K/mm3 (0.0-0.4) 12/21/19 04:38 Baso # 0.0 K/mm3 (0.0-0.1) 12/21/19 04:38 Seg Neutrophils % 70.8 % (40.0-70.0) H 12/21/19 04:38 Seg Neutrophils # 6.0 K/mm3 (1.8-7.7) 12/21/19 04:38 PT 15.3 Sec. (12.2-14.9) H 12/19/19 09:14 INR 1.19 (0.87-1.13) H 12/19/19 09:14 APTT 26.4 Sec. (24.2-36.6) 12/19/19 09:14 ABG pH 7.432 pH Units (7.350-7.450) 12/20/19 12:15 ABG pCO2 36.0 mm Hg 12/20/19 12:15 ABG pO2 150.8 mm Hg (80.0-90.0) H 12/20/19 12:15 ABG HCO3 23.5 mmol/L (20.0-26.0) 12/20/19 12:15 ABG O2 Saturation 98.9 % (95.0-99.0) 12/20/19 12:15 ABG O2 Content 7.8 (0.0-44) 12/20/19 12:15 ABG Base Excess -0.8 mmol/L (-2.0-3.0) 12/20/19 12:15 ABG Hemoglobin 5.5 gm/dl (14.0-18.0) L 12/20/19 12:15 ABG Carboxyhemoglobin 1.9 % (0.0-5.0) 12/20/19 12:15 ABG Methemoglobin 0.5 % (0.0-1.5) 12/20/19 12:15 Oxyhemoglobin 96.5 % (95.0-99.0) 12/20/19 12:15 FiO2 35 % 12/20/19 12:15 Sodium 137 mmol/L (137-145) 12/27/19 04:32 Potassium 4.0 mmol/L (3.6-5.0) D 12/27/19 04:32 Chloride 103.3 mmol/L (98-107) 12/27/19 04:32 Carbon Dioxide 23 mmol/L (22-30) 12/27/19 04:32 Anion Gap 15 mmol/L 12/27/19 04:32 BUN 11 mg/dL (9-20) 12/27/19 04:32 Creatinine 0.7 mg/dL (0.8-1.5) L 12/27/19 04:32 Estimated GFR > 60 ml/min 12/27/19 04:32 BUN/Creatinine Ratio 16 % 12/27/19 04:32 Glucose 189 mg/dL (75-100) H 12/27/19 04:32 POC Glucose 156 (70-105) H 12/30/19 06:26 Lactic Acid 5.10 mmol/L (0.7-2.0) H* 12/19/19 15:55 Calcium 8.4 mg/dL (8.4-10.2) 12/27/19 04:32 Magnesium 2.00 mg/dL (1.7-2.3) 12/19/19 09:14 Total Bilirubin 0.20 mg/dL (0.1-1.2) 12/19/19 09:14 AST 13 units/L (5-40) 12/19/19 09:14 ALT 11 units/L (7-56) 12/19/19 09:14 Alkaline Phosphatase 85 units/L (35-129) 12/19/19 09:14 Ammonia 35.0 umol/L (25-60) 12/19/19 09:14 Total Protein 6.6 g/dL (6.3-8.2) 12/19/19 09:14 Albumin 3.4 g/dL (3.9-5) L 12/19/19 09:14 Albumin/Globulin Ratio 1.1 % 12/19/19 09:14 Lipase 49 units/L (13-60) 12/19/19 09:14 Urine Color Yellow (Yellow) 12/19/19 10:02 Urine Turbidity Slightly-cloudy (Clear) 12/19/19 10:02 Urine pH 5.0 (5.0-7.0) 12/19/19 10:02 Ur Specific [place] 1.024 (1.003-1.030) 12/19/19 10:02 Urine Protein 30 mg/dl mg/dL (Negative) 12/19/19 10:02 Urine Glucose (UA) 50 mg/dL (Negative) 12/19/19 10:02 Urine Ketones Neg mg/dL (Negative) 12/19/19 10:02 Urine Blood Neg (Negative) 12/19/19 10:02 Urine Nitrite Neg (Negative) 12/19/19 10:02 Urine Bilirubin Neg (Negative) 12/19/19 10:02 Urine Urobilinogen < 2.0 mg/dL (<2.0) 12/19/19 10:02 Ur Leukocyte Esterase Neg (Negative) 12/19/19 10:02 Urine WBC (Auto) 2.0 /HPF (0.0-6.0) 12/19/19 10:02 Urine RBC (Auto) 1.0 /HPF (0.0-6.0) 12/19/19 10:02 U Epithel Cells (Auto) < 1.0 /HPF (0-13.0) 12/19/19 10:02 Hyaline Casts 11 /LPF 12/19/19 10:02 Urine Mucus 2+ /HPF 12/19/19 10:02 Urine Sperm Few /HPF (PIPE BUFFER) 12/19/19 10:02 Vancomycin Trough 13.0 ug/mL (5.0-20.0) 12/27/19 20:46 Random Vancomycin 7.5 ug/mL (0-40.0) 12/21/19 23:02 Blood Type O POSITIVE 12/19/19 09:10 Antibody Screen Negative 12/19/19 09:10 Crossmatch See Detail 12/19/19 09:10 - Diagnostic Impressions Diagnostic Impressions: Echocardiogram 12/22/19 17:57 Transthoracic Echocardiogram Indication: R/O Endocarditis BP: 133/79 HR: 81 Conclusions *Global left ventricular systolic function is normal. *Mild concentric left ventricular hypertrophy is observed. *The estimated ejection fraction is 50-55%. *Abnormal left ventricular diastolic filling is observed, consistent with impaired relaxation. *The right ventricular global systolic function is mildly reduced. *There is no evidence of aortic regurgitation. *There is trace of mitral regurgitation. *There is trace tricuspid regurgitation. *The right ventricular systolic pressure is calculated at 38 mmHg. *There is trace pulmonic regurgitation. Findings Left Ventricle: The left ventricular chamber size is normal. Mild concentric left ventricular hypertrophy is observed. Global left ventricular systolic function is normal. The estimated ejection fraction is 50-55%. Abnormal left ventricular diastolic filling is observed, consistent with impaired relaxation. Left Atrium: The left atrial chamber size is normal. Right Ventricle: The right ventricular cavity size is normal. The right ventricular global systolic function is mildly reduced. Right Atrium: The right atrial cavity size is normal. Aortic Valve: The aortic valve is trileaflet. There is no evidence of aortic regurgitation. Mitral Valve: The mitral valve leaflets are mildly thickened. There is trace of mitral regurgitation. Tricuspid Valve: The tricuspid valve leaflets are normal. There is trace tricuspid regurgitation. The right ventricular systolic pressure is calculated at 38 mmHg. Pulmonic Valve: The pulmonic valve appears normal. There is trace pulmonic regurgitation. Pericardium: There is no pericardial effusion. Aorta: There is no dilatation of the ascending aorta. There is no dilatation of the aortic root. Venous: The inferior vena cava appears normal in size. There is a greater than 50% respiratory change in the inferior vena cava dimension. Measurements Chambers 2D Name Value Normal Range IVSd (2D) 1.33 cm (0.6 - 1.1) LVPWd (2D) 1.29 cm (0.6 - 1.1) LVIDd (2D) 3.1 cm (3.7 - 5.6) LVIDs (2D) 2.26 cm (2 - 3.8) LV FS (2D) 27.25 % - EF Teichholz (2D) 54.5 % - Ao root diameter (2D) 2.84 cm (2 - 3.7) Volumes/Mass Name Value Normal Range LA ESV SP 4CH (A/L) 20.15 ml - LA ESV SP 2CH (A/L) 33.14 ml - LA ESV BP (A/L) 28.63 ml - LA ESV BP (A/L) index 15.39 ml/m2 - LA ESV SP 4CH (MOD) 18.4 ml - LA ESV SP 2CH (MOD) 29.82 ml - LA ESV BP (MOD) 25.89 ml - LA ESV BP (MOD) index 13.92 ml/m2 - Diastolic/Systolic Function Name Value Normal Range MV E-wave Vmax 1.1 m/sec - MV deceleration time 171.63 msec - MV A-wave Vmax 1.18 m/sec - MV E:A ratio 0.94 ratio - Aortic Valve Name Value Normal Range AV Vmax 1.37 m/sec - AV VTI 26.97 cm - AV peak gradient 7.5 mmHg - AV mean gradient 3.79 mmHg - LVOT diameter 2.03 cm - LVOT Vmax 1.09 m/sec - LVOT VTI 23.3 cm - LVOT peak gradient 4.76 mmHg - LVOT mean gradient 2.45 mmHg - SV LVOT 75.15 ml - DARINEL (continuity Vmax) 2.57 cm2 - DARINEL (continuity VTI) 2.79 cm2 - Tricuspid Valve Name Value Normal Range TR Vmax 2.96 m/sec - TR peak gradient 35 mmHg - RAP 3 mmHg - RVSP 38 mmHg - IVC diameter 1.78 cm (1.2 - 2.3) Pulmonic Valve/Qp:Qs Name Value Normal Range PV Vmax 0.96 m/sec - PV peak gradient 3.68 mmHg - ND end-diastolic Vmax 1.42 m/sec - PV acceleration time 64.7 msec - NDUM: 12/24/19 1217 Amended Report Transthoracic Echocardiogram Indication: R/O Endocarditis BP: 133/79 HR: 81 Conclusions *Global left ventricular systolic function is normal. *Mild concentric left ventricular hypertrophy is observed. *The estimated ejection fraction is 50-55%. *Abnormal left ventricular diastolic filling is observed, consistent with impaired relaxation. *The right ventricular global systolic function is mildly reduced. *There is no evidence of aortic regurgitation. *There is trace of mitral regurgitation. *There is trace tricuspid regurgitation. *The right ventricular systolic pressure is calculated at 38 mmHg. *There is trace pulmonic regurgitation. *No obvious endocardtis noted on mitral and aortic and tricuspid valve, if clinically indicated suggest JUAN Findings Left Ventricle: The left ventricular chamber size is normal. Mild concentric left ventricular hypertrophy is observed. Global left ventricular systolic function is normal. The estimated ejection fraction is 50-55%. Abnormal left ventricular diastolic filling is observed, consistent with impaired relaxation. Left Atrium: The left atrial chamber size is normal. Right Ventricle: The right ventricular cavity size is normal. The right ventricular global systolic function is mildly reduced. Right Atrium: The right atrial cavity size is normal. Aortic Valve: The aortic valve is trileaflet. There is no evidence of aortic regurgitation. Mitral Valve: The mitral valve leaflets are mildly thickened. There is trace of mitral regurgitation. Tricuspid Valve: The tricuspid valve leaflets are normal. There is trace tricuspid regurgitation. The right ventricular systolic pressure is calculated at 38 mmHg. Pulmonic Valve: The pulmonic valve appears normal. There is trace pulmonic regurgitation. Pericardium: There is no pericardial effusion. Aorta: There is no dilatation of the ascending aorta. There is no dilatation of the aortic root. Venous: The inferior vena cava appears normal in size. There is a greater than 50% respiratory change in the inferior vena cava dimension. Measurements Chambers 2D Name Value Normal Range IVSd (2D) 1.33 cm (0.6 - 1.1) LVPWd (2D) 1.29 cm (0.6 - 1.1) LVIDd (2D) 3.1 cm (3.7 - 5.6) LVIDs (2D) 2.26 cm (2 - 3.8) LV FS (2D) 27.25 % - EF Teichholz (2D) 54.5 % - Ao root diameter (2D) 2.84 cm (2 - 3.7) Volumes/Mass Name Value Normal Range LA ESV SP 4CH (A/L) 20.15 ml - LA ESV SP 2CH (A/L) 33.14 ml - LA ESV BP (A/L) 28.63 ml - LA ESV BP (A/L) index 15.39 ml/m2 - LA ESV SP 4CH (MOD) 18.4 ml - LA ESV SP 2CH (MOD) 29.82 ml - LA ESV BP (MOD) 25.89 ml - LA ESV BP (MOD) index 13.92 ml/m2 - Diastolic/Systolic Function Name Value Normal Range MV E-wave Vmax 1.1 m/sec - MV deceleration time 171.63 msec - MV A-wave Vmax 1.18 m/sec - MV E:A ratio 0.94 ratio - Aortic Valve Name Value Normal Range AV Vmax 1.37 m/sec - AV VTI 26.97 cm - AV peak gradient 7.5 mmHg - AV mean gradient 3.79 mmHg - LVOT diameter 2.03 cm - LVOT Vmax 1.09 m/sec - LVOT VTI 23.3 cm - LVOT peak gradient 4.76 mmHg - LVOT mean gradient 2.45 mmHg - SV LVOT 75.15 ml - DARINEL (continuity Vmax) 2.57 cm2 - DARINEL (continuity VTI) 2.79 cm2 - Tricuspid Valve Name Value Normal Range TR Vmax 2.96 m/sec - TR peak gradient 35 mmHg - RAP 3 mmHg - RVSP 38 mmHg - IVC diameter 1.78 cm (1.2 - 2.3) Pulmonic Valve/Qp:Qs Name Value Normal Range PV Vmax 0.96 m/sec - PV peak gradient 3.68 mmHg - ND end-diastolic Vmax 1.42 m/sec - PV acceleration time 64.7 msec - [place]/IV: Voiding Method Condom Catheter IV Catheter Type [Left Forearm INT / Saline Lock ] IV Catheter Type [Left Triple Lumen Cath Subclavian] IV Catheter Type [Right INT / Saline Lock Antecubital] Active Medications - Current Medications Current Medications: Generic Name Dose Route Start Last Admin Trade Name Freq PRN Reason Stop Dose Admin Acetaminophen 650 mg 12/19/19 12:15 12/28/19 16:09 Tylenol PO 650 mg Q4H PRN Administration Fever >101 Lipase/Protease/Amylase 1 each 12/22/19 10:[address] 10,500 Unit FEEDTUBE PRN PRN For Clogged Feeding Tube Ascorbic Acid 500 mg 12/19/19 13:00 12/31/19 22:19 Vitamin C PO 500 mg Q12HR NIKOLAS Administration Atorvastatin Calcium 20 mg 12/19/19 22:00 12/31/19 22:17 Lipitor PO 20 mg QHS NIKOLAS Administration Bismuth Subsalicylate 524 mg 12/19/19 12:15 Pepto Bismol PO Q6H PRN Diarrhea Citalopram Hydrobromide 30 mg 12/19/19 14:00 12/31/19 09:13 Celexa PO 30 mg DAILY NIKOLAS Administration Ferrous Sulfate 308 mg 12/20/19 22:00 12/31/19 22:16 Ferrous Sulfate FEEDTUBE 308 mg BID NIKOLAS Administration Hydrophilic Ointment 1 applic 12/19/19 10:35 Vaseline Lip Therapy TP Q2HR PRN Dry Lips Ceftriaxone Sodium 2 gm in 100 mls @ 200 mls/hr 12/28/19 10:00 12/31/19 09:12 Rocephin/Ns 2 Gm/100 Ml IV 01/06/20 10:29 200 mls/hr Q24HR NIKOLAS Administration Lansoprazole 30 mg 12/23/19 10:00 12/31/19 22:18 Prevacid Solutab FEEDTUBE 30 mg BID NIKOLAS Administration Latanoprost 1 drops 12/19/19 22:00 12/31/19 22:16 Latanoprost 0.005% OD 1 drops QHS NIKOLAS Administration Lisinopril 10 mg 12/19/19 13:00 12/31/19 09:13 Zestril PO 10 mg QDAY NIKOLAS Administration Magnesium Oxide 400 mg 12/20/19 10:00 12/31/19 09:13 Mag-Ox PO 400 mg QDAY NIKOLAS Administration Multi-Ingred Cream/Lotion/Oil/Oint 1 applic 12/19/19 10:35 Artificial Tears Ophth Oint OU Q4HR PRN Dry Eye(s) Quetiapine Fumarate 50 mg 12/19/19 14:00 12/31/19 20:00 Seroquel PO 50 mg TID NKIOLAS Administration Simple Syrup 15 ml 12/22/19 09:51 Simple Syrup FEEDTUBE PRN PRN Hypoglycemia Simple Syrup 30 ml 12/22/19 10:05 Simple Syrup FEEDTUBE PRN PRN Hypoglycemia Sodium Bicarbonate 325 mg 12/22/19 10:05 Sodium Bicarbonate FEEDTUBE PRN PRN For Clogged Feeding Tube Sodium Chloride 10 ml 12/19/19 22:00 12/31/19 22:18 Sodium Chloride Flush Syringe 10 Ml IV 10 ml BID NIKOLAS Administration Sodium Chloride 10 ml 12/19/19 12:13 Sodium Chloride Flush Syringe 10 Ml IV PRN PRN LINE FLUSH Thiamine HCl 100 mg 12/20/19 10:00 12/31/19 09:13 Vitamin B-1 PO 100 mg DAILY NIKOLAS Administration Timolol Maleate 1 drops 12/19/19 22:00 12/31/19 22:19 Timoptic OU 1 drops BID NIKOLAS Administration Nutrition/Malnutrition Assess - Dietary Evaluation Nutrition/Malnutrition Findings: Nutrition Notes Start: 12/20/19 08:53 Freq: Status: Active Protocol: Document 12/31/19 11:45 LM (Rec: 12/31/19 11:54 LM [id number]) Nutrition Notes Initial or Follow up Reassessment Current Diagnosis Acute Kidney Injury,COPD, Diabetes,Hypertension, Respiratory Failure,Stroke Other Pertinent Diagnosis GI bleed, encephalopathy, debility Current Diet Mech soft + Cyclic TF Glucerna 1.2 at 65ml/hr Labs/Tests POC glu 156 Pertinent Medications Mag-Ox Height 5 ft 6 in Weight 74.7 kg [place] Body Weight (kg) 64.54 BMI 26.6 Weight Status Overweight Subjective/Other Information Per RN, pt has been eating. Pt ate a quarter of breakfast this AM and had 50% intakes yesterday. Pt tolerating Cylic TF. Percent of energy/protein needs met: 96%/100% (38% of meals + cyclic TF Burn Absent Trauma Absent GI Symptoms Other Current % PO Negligible Minimum of two criteria No physical signs of malnutrition #1 Nutrition Diagnosis Inadequate oral intake As Evidenced by Signs and Symptoms Pt's diet advanced to mech soft with cyclic TF Diagnosis Progress(for reassessment Improved documentation) Is patient on ventilator? No Is Patient Ambulatory and/or Out of Bed No REE-([facility]-confined to bed) [phone] Calculation Used for Recommendations [facility] Additional Notes Protein: 60-90g (0.8-1.2g/kg) Fluid: 1 ml/kcal Nutrition Intervention Change Diet Order: Mechanical soft with cyclic TF Nutrition Support: Cyclic TF from 7 PM to 7 AM ( 12 hr) Glucerna 1.2 at 65 ml/ hr Flush 50 ml q4h Kcal 936 Protein (gm) 47 Fluid (mL) 628 Goal #1 TF tolerance Goal #2 Meet at least 75% of energy and protein needs via TF and mech soft diet Anticipated Discharge Needs: TF and mech soft diet Follow-Up By: 01/03/20 Additional Comments F/U for intakes, TF tolerance
[2020-01-01] MEDS: cefTRIAXone/NS 2 GM/100 ML 2 GM/100 ML BAG IV SCH (09:04)
--- NOTE | 2020-01-01 14:00 | Progress Note ---
Assessment and Plan Acute upper GI bleed Severe Sepsis witrh Shock Acute hypoxemic respiratory failure Diabetes mellitus type 2 Hypertension Metabolic acidosis/lactic acidosis - continue contact and droplet isolation and follow clinically due to COVID-19 exposure - follow COVID-19 test result - continue H&H prn re: G.I. Bleed - continue PPI therapy - complete Rocephin dosing per ID recommendations - [employer] evaluation as he is at risk for overt aspiration - no new issues otherwise; continue care as below - supplemental oxygen as needed to keep O2 sat's > 90% - prn bronchodilators with pulmonary hygiene per RT - continue antiinfective's per ID recommendations for bacteremia / sepsis - PT/OT as tolerated - mobility protocols for pressure ulcer prophylaxis - continue accuchecks with glycemic control per SSI for target BG < 180 mg/dl - GI & VTE prophylaxis with PPI & SCD's - Flu & pneumovax addressed per protocol - continue other care per attending / other consultants ... re-evaluate in am & prn Subjective Date of service: 01/01/20 Principal diagnosis: Ac upper GI bleed; Shock; Ac hypoxemic resp failure; DM II; H/O HTN Interval history: Patient is seen today for: Acute upper GI bleed; Severe Sepsis witrh Shock; Acute hypoxemic respiratory failure; DM II; HTN; Metabolic acidosis/lactic acidosis Seen and examined at bedside; 24hour events reviewed; nursing and respiratory care staff consulted; no adverse overnight events reported to me; resting peacefully in bed; on room air; non conversant; No N/V/F/C Objective Vital Signs - 12hr 01/01/20 01/01/20 04:32 12:10 Temperature 98.5 F 98.4 F Pulse Rate 85 90 Respiratory 20 18 Rate Blood Pressure 130/83 135/95 O2 Sat by Pulse 96 98 Oximetry Constitutional: no acute distress Eyes: non-icteric ENT: oropharynx moist Neck: supple, no lymphadenopathy, no JVD Effort: normal Ascultation: Bilateral: diminished breath sounds, rhonchi Percussion: Bilateral: not dull Cardiovascular: regular rate and rhythm Gastrointestinal: normoactive bowel sounds, soft, non-tender, non-distended Integumentary: rash Extremities: no cyanosis, no edema, pulses normal Neurologic: pupils equal and round, other (mumbles sometimes appropriate replies to questions) Psychiatric: other (affect flat) CBC and BMP: 12/27/19 04:32 12/27/19 04:32 ABG, PT/INR, D-dimer: ABG ABG pH 7.432 pH Units (7.350-7.450) 12/20/19 12:15 ABG pCO2 36.0 mm Hg 12/20/19 12:15 ABG pO2 150.8 mm Hg (80.0-90.0) H 12/20/19 12:15 ABG O2 Saturation 98.9 % (95.0-99.0) 12/20/19 12:15 PT/INR, D-dimer PT 15.3 Sec. (12.2-14.9) H 12/19/19 09:14 INR 1.19 (0.87-1.13) H 12/19/19 09:14 Abnormal lab findings: Abnormal Labs 12/19/19 12/19/19 12/19/19 09:10 09:14 09:14 WBC 12.1 H RBC Hgb 10.0 L Hct 32.3 L MCV 81 L MCH 25 L MCHC 31 L RDW 17.7 H Lymph % (Auto) Levy % (Auto) Levy # 0.9 H Seg Neutrophils % 78.2 H Seg Neutrophils # 9.5 H PT 15.3 H INR 1.19 H ABG pH ABG pO2 ABG HCO3 ABG O2 Saturation ABG Base Excess ABG Hemoglobin Sodium Potassium Chloride Carbon Dioxide BUN Creatinine Glucose POC Glucose Lactic Acid Calcium Albumin Vancomycin Trough Crossmatch See Detail 12/19/19 12/19/19 12/19/19 09:14 09:14 10:05 WBC RBC Hgb Hct MCV MCH MCHC RDW Lymph % (Auto) Levy % (Auto) Levy # Seg Neutrophils % Seg Neutrophils # PT INR ABG pH ABG pO2 ABG HCO3 ABG O2 Saturation ABG Base Excess ABG Hemoglobin Sodium Potassium Chloride Carbon Dioxide 20 L BUN 55 H Creatinine Glucose 222 H POC Glucose 212 H Lactic Acid 3.10 H* Calcium Albumin 3.4 L Vancomycin Trough Crossmatch 12/19/19 12/19/19 12/19/19 10:30 12:30 15:55 WBC RBC Hgb Hct MCV MCH MCHC RDW Lymph % (Auto) Levy % (Auto) Levy # Seg Neutrophils % Seg Neutrophils # PT INR ABG pH 7.277 L ABG pO2 195.1 H ABG HCO3 19.2 L ABG O2 Saturation 99.2 H ABG Base Excess -7.1 L ABG Hemoglobin 9.4 L Sodium Potassium Chloride Carbon Dioxide BUN Creatinine Glucose POC Glucose Lactic Acid 2.80 H* 5.10 H* Calcium Albumin Vancomycin Trough Crossmatch 12/20/19 12/20/19 12/20/19 04:20 04:59 04:59 WBC 11.3 H RBC 3.21 L Hgb 8.0 L Hct 26.0 L D MCV 81 L MCH 25 L MCHC 31 L RDW 17.7 H Lymph % (Auto) 12.2 L Levy % (Auto) 11.1 H Levy # 1.2 H Seg Neutrophils % 76.5 H Seg Neutrophils # 8.6 H PT INR ABG pH ABG pO2 139.7 H ABG HCO3 ABG O2 Saturation ABG Base Excess ABG Hemoglobin 9.2 L Sodium 147 H Potassium Chloride 113.7 H Carbon Dioxide BUN 29 H Creatinine 0.6 L D Glucose 172 H POC Glucose Lactic Acid Calcium Albumin Vancomycin Trough Crossmatch 12/20/19 12/21/19 12/21/19 12:15 04:38 04:38 WBC RBC 2.55 L Hgb 6.5 L Hct 20.9 L MCV 82 L MCH 26 L MCHC 31 L RDW 18.1 H Lymph % (Auto) Levy % (Auto) 10.8 H Levy # 0.9 H Seg Neutrophils % 70.8 H Seg Neutrophils # PT INR ABG pH ABG pO2 150.8 H ABG HCO3 ABG O2 Saturation ABG Base Excess ABG Hemoglobin 5.5 L Sodium 149 H Potassium 3.5 L Chloride 114.9 H Carbon Dioxide BUN 21 H Creatinine 0.5 L Glucose 114 H POC Glucose Lactic Acid Calcium Albumin Vancomycin Trough Crossmatch 12/21/19 12/22/19 12/22/19 23:02 10:34 10:34 WBC RBC 3.24 L Hgb 7.7 L 8.4 L Hct 24.8 L 27.0 L MCV 83 L MCH 26 L MCHC 31 L RDW 17.7 H Lymph % (Auto) Levy % (Auto) Levy # Seg Neutrophils % Seg Neutrophils # PT INR ABG pH ABG pO2 ABG HCO3 ABG O2 Saturation ABG Base Excess ABG Hemoglobin Sodium 147 H Potassium Chloride 112.3 H Carbon Dioxide 20 L BUN Creatinine 0.5 L Glucose 102 H POC Glucose Lactic Acid Calcium Albumin Vancomycin Trough Crossmatch 12/22/19 12/22/19 12/22/19 11:58 18:15 23:47 WBC RBC Hgb Hct MCV MCH MCHC RDW Lymph % (Auto) Levy % (Auto) Levy # Seg Neutrophils % Seg Neutrophils # PT INR ABG pH ABG pO2 ABG HCO3 ABG O2 Saturation ABG Base Excess ABG Hemoglobin Sodium Potassium Chloride Carbon Dioxide BUN Creatinine Glucose POC Glucose 126 H 114 H 121 H Lactic Acid Calcium Albumin Vancomycin Trough Crossmatch 12/23/19 12/23/19 12/23/19 05:46 06:38 06:38 WBC RBC 2.94 L Hgb 7.6 L Hct 23.8 L MCV 81 L MCH 26 L MCHC RDW 17.0 H Lymph % (Auto) Levy % (Auto) Levy # Seg Neutrophils % Seg Neutrophils # PT INR ABG pH ABG pO2 ABG HCO3 ABG O2 Saturation ABG Base Excess ABG Hemoglobin Sodium Potassium 3.3 L Chloride 107.5 H Carbon Dioxide BUN Creatinine 0.4 L Glucose 132 H POC Glucose 124 H Lactic Acid Calcium 8.1 L Albumin Vancomycin Trough Crossmatch 12/23/19 12/23/19 12/24/19 15:54 20:50 00:06 WBC RBC Hgb Hct MCV MCH MCHC RDW Lymph % (Auto) Levy % (Auto) Levy # Seg Neutrophils % Seg Neutrophils # PT INR ABG pH ABG pO2 ABG HCO3 ABG O2 Saturation ABG Base Excess ABG Hemoglobin Sodium Potassium Chloride Carbon Dioxide BUN Creatinine Glucose POC Glucose 150 H 135 H Lactic Acid Calcium Albumin Vancomycin Trough 21.4 H Crossmatch 12/24/19 12/24/19 12/25/19 05:34 18:28 05:31 WBC RBC Hgb Hct MCV MCH MCHC RDW Lymph % (Auto) Levy % (Auto) Levy # Seg Neutrophils % Seg Neutrophils # PT INR ABG pH ABG pO2 ABG HCO3 ABG O2 Saturation ABG Base Excess ABG Hemoglobin Sodium Potassium Chloride Carbon Dioxide BUN Creatinine Glucose POC Glucose 179 H 156 H 179 H Lactic Acid Calcium Albumin Vancomycin Trough Crossmatch 12/25/19 12/26/19 12/26/19 17:50 05:00 05:00 WBC 16.9 H RBC 2.91 L Hgb 7.3 L Hct 22.9 L MCV 79 L MCH 25 L MCHC RDW 17.7 H Lymph % (Auto) Levy % (Auto) Levy # Seg Neutrophils % Seg Neutrophils # PT INR ABG pH ABG pO2 ABG HCO3 ABG O2 Saturation ABG Base Excess ABG Hemoglobin Sodium 135 L D Potassium 3.1 L Chloride 96.6 L Carbon Dioxide BUN 7 L Creatinine 0.5 L Glucose 180 H POC Glucose 211 H Lactic Acid Calcium 8.0 L Albumin Vancomycin Trough Crossmatch 12/26/19 12/26/19 12/27/19 16:57 22:42 04:32 WBC 14.6 H RBC 2.95 L Hgb 7.4 L Hct 23.4 L MCV 79 L MCH 25 L MCHC RDW 18.4 H Lymph % (Auto) Levy % (Auto) Levy # Seg Neutrophils % Seg Neutrophils # PT INR ABG pH ABG pO2 ABG HCO3 ABG O2 Saturation ABG Base Excess ABG Hemoglobin Sodium Potassium Chloride Carbon Dioxide BUN Creatinine Glucose POC Glucose 117 H 174 H Lactic Acid Calcium Albumin Vancomycin Trough Crossmatch 12/27/19 12/27/19 12/29/19 04:32 05:59 06:48 WBC RBC Hgb Hct MCV MCH MCHC RDW Lymph % (Auto) Levy % (Auto) Levy # Seg Neutrophils % Seg Neutrophils # PT INR ABG pH ABG pO2 ABG HCO3 ABG O2 Saturation ABG Base Excess ABG Hemoglobin Sodium Potassium Chloride Carbon Dioxide BUN Creatinine 0.7 L Glucose 189 H POC Glucose 183 H 212 H Lactic Acid Calcium Albumin Vancomycin Trough Crossmatch 12/29/19 12/29/19 12/30/19 11:23 17:44 00:23 WBC RBC Hgb Hct MCV MCH MCHC RDW Lymph % (Auto) Levy % (Auto) Levy # Seg Neutrophils % Seg Neutrophils # PT INR ABG pH ABG pO2 ABG HCO3 ABG O2 Saturation ABG Base Excess ABG Hemoglobin Sodium Potassium Chloride Carbon Dioxide BUN Creatinine Glucose POC Glucose 170 H 168 H 145 H Lactic Acid Calcium Albumin Vancomycin Trough Crossmatch 12/30/19 06:26 WBC RBC Hgb Hct MCV MCH MCHC RDW Lymph % (Auto) Levy % (Auto) Levy # Seg Neutrophils % Seg Neutrophils # PT INR ABG pH ABG pO2 ABG HCO3 ABG O2 Saturation ABG Base Excess ABG Hemoglobin Sodium Potassium Chloride Carbon Dioxide BUN Creatinine Glucose POC Glucose 156 H Lactic Acid Calcium Albumin Vancomycin Trough Crossmatch Allied health notes reviewed: nursing
[2020-01-01] MEDS: LATANOPROST 0.005% OPHTH SOLN 2.5 ML OD SCH (22:22)
--- NOTE | 2020-01-02 09:31 | Progress Note ---
Assessment and Plan Assessment and plan: Acute upper GI bleed. Patient underwent endoscopy which revealed esophagitis in the lower third of the esophagus. There was a cratered, clean based ulcer in the incisura of the stomach. No high risk bleeding stigmata was seen. Continue to monitor H&H and transfuse for hemoglobin less than 7. Continue PPI. Acute hypoxic respiratory failure. Cont. O2 to maintain sats Diabetes mellitus type 2. Continue Accu-Cheks and sliding scale insulin. Hypertension. Patient actually hypotensive given the bleed. Metabolic acidosis/lactic acidosis. Etiology likely secondary to hypotension/hypoperfusion from GI bleed. Patient with no obvious signs of infection. Patient remains asymptomatic, however his facility won't take him back without negative test. Agree with testing for now, though his risk of infection is extremely low. -anticipate to d/c on ceftriaxone 2 g IV q day total 14 days till 01/06/2020. Discussed w major case detective 12/29/2019. Patient still with low-grade fever yesterday of 100.5. Patient currently satting 98% on room air. Patient continues to remain asymptomatic, however his facility won't take him back without negative test. Await for negative COVID-19 test. 12/30/2019. Patient still with low-grade fever 100.5. Patient requiring no oxygen. Patient continues to remain asymptomatic, however his facility won't take him back without negative test. Await for negative COVID-19 test. 12/31/19 Patient requiring no oxygen. Patient continues to remain asymptomatic, however his facility won't take him back without negative test. Await for negative COVID-19 test. 01/01/20 Patient requiring no oxygen. Patient continues to remain asymptomatic, however his facility won't take him back without negative test. Await for negative COVID-19 test. 01/02/2020 Patient requiring no oxygen. Patient continues to remain asymptomatic, however his facility won't take him back without negative test. Await for negative COVID-19 test. History Interval history: The patient is a 54 yo male presenting from alf with melena; pt with h/o cva, non-verbal, with chronic peg tube. h/o gastric ulcer from prior endoscopies. upon arrival, pt had large episode of emesis with clots. intubated for airway protection. hypotensive initially and improved with fluid boluses. Due to lack of resources with insufficient PPE and in an effort to preserve PPE that we have remaining, patient's visit was done by telephone. Chart reviewed. Discussed plan of care with nurses and consultants. Hospitalist Physical - Constitutional Vitals: Temp Pulse Resp BP Pulse Ox 98.2 F 90 20 140/89 95 01/02/20 04:44 01/02/20 04:44 01/02/20 04:44 01/02/20 04:44 01/02/20 04:44 General appearance: Present: other (Orally intubatedon mechanical ventilation) - EENT Eyes: Present: PERRL, EOM intact ENT: hearing intact, clear oral mucosa, dentition normal - Neck Neck: Present: supple, normal ROM - Respiratory Respiratory effort: normal Respiratory: bilateral: CTA - Cardiovascular Rhythm: regular Heart Sounds: Present: S1 & S2. Absent: gallop, rub - Extremities Extremities: no ischemia, No edema, Full ROM - Abdominal General gastrointestinal: soft, non-tender, non-distended, normal bowel sounds - Integumentary Integumentary: Present: clear, warm, dry - Neurologic Neurologic: CNII-XII intact, moves all extremities Results - Labs CBC & Chem 7: 12/27/19 04:32 12/27/19 04:32 Labs: Laboratory Last Values WBC 14.6 K/mm3 (4.5-11.0) H 12/27/19 04:32 RBC 2.95 M/mm3 (3.65-5.03) L 12/27/19 04:32 Hgb 7.4 gm/dl (11.8-15.2) L 12/27/19 04:32 Hct 23.4 % (35.5-45.6) L 12/27/19 04:32 MCV 79 fl (84-94) L 12/27/19 04:32 MCH 25 pg (28-32) L 12/27/19 04:32 MCHC 32 % (32-34) 12/27/19 04:32 RDW 18.4 % (13.2-15.2) H 12/27/19 04:32 Plt Count 266 K/mm3 (140-440) 12/27/19 04:32 Lymph % (Auto) 16.7 % (13.4-35.0) 12/21/19 04:38 [place] % (Auto) 10.8 % (0.0-7.3) H 12/21/19 04:38 Eos % (Auto) 1.2 % (0.0-4.3) 12/21/19 04:38 Baso % (Auto) 0.5 % (0.0-1.8) 12/21/19 04:38 Lymph # 1.4 K/mm3 (1.2-5.4) 12/21/19 04:38 [place] # 0.9 K/mm3 (0.0-0.8) H 12/21/19 04:38 Eos # 0.1 K/mm3 (0.0-0.4) 12/21/19 04:38 Baso # 0.0 K/mm3 (0.0-0.1) 12/21/19 04:38 Seg Neutrophils % 70.8 % (40.0-70.0) H 12/21/19 04:38 Seg Neutrophils # 6.0 K/mm3 (1.8-7.7) 12/21/19 04:38 PT 15.3 Sec. (12.2-14.9) H 12/19/19 09:14 INR 1.19 (0.87-1.13) H 12/19/19 09:14 APTT 26.4 Sec. (24.2-36.6) 12/19/19 09:14 ABG pH 7.432 pH Units (7.350-7.450) 12/20/19 12:15 ABG pCO2 36.0 mm Hg 12/20/19 12:15 ABG pO2 150.8 mm Hg (80.0-90.0) H 12/20/19 12:15 ABG HCO3 23.5 mmol/L (20.0-26.0) 12/20/19 12:15 ABG O2 Saturation 98.9 % (95.0-99.0) 12/20/19 12:15 ABG O2 Content 7.8 (0.0-44) 12/20/19 12:15 ABG Base Excess -0.8 mmol/L (-2.0-3.0) 12/20/19 12:15 ABG Hemoglobin 5.5 gm/dl (14.0-18.0) L 12/20/19 12:15 ABG Carboxyhemoglobin 1.9 % (0.0-5.0) 12/20/19 12:15 ABG Methemoglobin 0.5 % (0.0-1.5) 12/20/19 12:15 Oxyhemoglobin 96.5 % (95.0-99.0) 12/20/19 12:15 FiO2 35 % 12/20/19 12:15 Sodium 137 mmol/L (137-145) 12/27/19 04:32 Potassium 4.0 mmol/L (3.6-5.0) D 12/27/19 04:32 Chloride 103.3 mmol/L (98-107) 12/27/19 04:32 Carbon Dioxide 23 mmol/L (22-30) 12/27/19 04:32 Anion Gap 15 mmol/L 12/27/19 04:32 BUN 11 mg/dL (9-20) 12/27/19 04:32 Creatinine 0.7 mg/dL (0.8-1.5) L 12/27/19 04:32 Estimated GFR > 60 ml/min 12/27/19 04:32 BUN/Creatinine Ratio 16 % 12/27/19 04:32 Glucose 189 mg/dL (75-100) H 12/27/19 04:32 POC Glucose 156 (70-105) H 12/30/19 06:26 Lactic Acid 5.10 mmol/L (0.7-2.0) H* 12/19/19 15:55 Calcium 8.4 mg/dL (8.4-10.2) 12/27/19 04:32 Magnesium 2.00 mg/dL (1.7-2.3) 12/19/19 09:14 Total Bilirubin 0.20 mg/dL (0.1-1.2) 12/19/19 09:14 AST 13 units/L (5-40) 12/19/19 09:14 ALT 11 units/L (7-56) 12/19/19 09:14 Alkaline Phosphatase 85 units/L (35-129) 12/19/19 09:14 Ammonia 35.0 umol/L (25-60) 12/19/19 09:14 Total Protein 6.6 g/dL (6.3-8.2) 12/19/19 09:14 Albumin 3.4 g/dL (3.9-5) L 12/19/19 09:14 Albumin/Globulin Ratio 1.1 % 12/19/19 09:14 Lipase 49 units/L (13-60) 12/19/19 09:14 Urine Color Yellow (Yellow) 12/19/19 10:02 Urine Turbidity Slightly-cloudy (Clear) 12/19/19 10:02 Urine pH 5.0 (5.0-7.0) 12/19/19 10:02 Ur Specific [place] 1.024 (1.003-1.030) 12/19/19 10:02 Urine Protein 30 mg/dl mg/dL (Negative) 12/19/19 10:02 Urine Glucose (UA) 50 mg/dL (Negative) 12/19/19 10:02 Urine Ketones Neg mg/dL (Negative) 12/19/19 10:02 Urine Blood Neg (Negative) 12/19/19 10:02 Urine Nitrite Neg (Negative) 12/19/19 10:02 Urine Bilirubin Neg (Negative) 12/19/19 10:02 Urine Urobilinogen < 2.0 mg/dL (<2.0) 12/19/19 10:02 Ur Leukocyte Esterase Neg (Negative) 12/19/19 10:02 Urine WBC (Auto) 2.0 /HPF (0.0-6.0) 12/19/19 10:02 Urine RBC (Auto) 1.0 /HPF (0.0-6.0) 12/19/19 10:02 U Epithel Cells (Auto) < 1.0 /HPF (0-13.0) 12/19/19 10:02 Hyaline Casts 11 /LPF 12/19/19 10:02 Urine Mucus 2+ /HPF 12/19/19 10:02 Urine Sperm Few /HPF (EMERGENCY CARE ATTENDANT) 12/19/19 10:02 Vancomycin Trough 13.0 ug/mL (5.0-20.0) 12/27/19 20:46 Random Vancomycin 7.5 ug/mL (0-40.0) 12/21/19 23:02 Blood Type O POSITIVE 12/19/19 09:10 Antibody Screen Negative 12/19/19 09:10 Crossmatch See Detail 12/19/19 09:10 - Diagnostic Impressions Diagnostic Impressions: Echocardiogram 12/22/19 17:57 Transthoracic Echocardiogram Indication: R/O Endocarditis BP: 133/79 HR: 81 Conclusions *Global left ventricular systolic function is normal. *Mild concentric left ventricular hypertrophy is observed. *The estimated ejection fraction is 50-55%. *Abnormal left ventricular diastolic filling is observed, consistent with impaired relaxation. *The right ventricular global systolic function is mildly reduced. *There is no evidence of aortic regurgitation. *There is trace of mitral regurgitation. *There is trace tricuspid regurgitation. *The right ventricular systolic pressure is calculated at 38 mmHg. *There is trace pulmonic regurgitation. Findings Left Ventricle: The left ventricular chamber size is normal. Mild concentric left ventricular hypertrophy is observed. Global left ventricular systolic function is normal. The estimated ejection fraction is 50-55%. Abnormal left ventricular diastolic filling is observed, consistent with impaired relaxation. Left Atrium: The left atrial chamber size is normal. Right Ventricle: The right ventricular cavity size is normal. The right ventricular global systolic function is mildly reduced. Right Atrium: The right atrial cavity size is normal. Aortic Valve: The aortic valve is trileaflet. There is no evidence of aortic regurgitation. Mitral Valve: The mitral valve leaflets are mildly thickened. There is trace of mitral regurgitation. Tricuspid Valve: The tricuspid valve leaflets are normal. There is trace tricuspid regurgitation. The right ventricular systolic pressure is calculated at 38 mmHg. Pulmonic Valve: The pulmonic valve appears normal. There is trace pulmonic regurgitation. Pericardium: There is no pericardial effusion. Aorta: There is no dilatation of the ascending aorta. There is no dilatation of the aortic root. Venous: The inferior vena cava appears normal in size. There is a greater than 50% respiratory change in the inferior vena cava dimension. Measurements Chambers 2D Name Value Normal Range IVSd (2D) 1.33 cm (0.6 - 1.1) LVPWd (2D) 1.29 cm (0.6 - 1.1) LVIDd (2D) 3.1 cm (3.7 - 5.6) LVIDs (2D) 2.26 cm (2 - 3.8) LV FS (2D) 27.25 % - EF Teichholz (2D) 54.5 % - Ao root diameter (2D) 2.84 cm (2 - 3.7) Volumes/Mass Name Value Normal Range LA ESV SP 4CH (A/L) 20.15 ml - LA ESV SP 2CH (A/L) 33.14 ml - LA ESV BP (A/L) 28.63 ml - LA ESV BP (A/L) index 15.39 ml/m2 - LA ESV SP 4CH (MOD) 18.4 ml - LA ESV SP 2CH (MOD) 29.82 ml - LA ESV BP (MOD) 25.89 ml - LA ESV BP (MOD) index 13.92 ml/m2 - Diastolic/Systolic Function Name Value Normal Range MV E-wave Vmax 1.1 m/sec - MV deceleration time 171.63 msec - MV A-wave Vmax 1.18 m/sec - MV E:A ratio 0.94 ratio - Aortic Valve Name Value Normal Range AV Vmax 1.37 m/sec - AV VTI 26.97 cm - AV peak gradient 7.5 mmHg - AV mean gradient 3.79 mmHg - LVOT diameter 2.03 cm - LVOT Vmax 1.09 m/sec - LVOT VTI 23.3 cm - LVOT peak gradient 4.76 mmHg - LVOT mean gradient 2.45 mmHg - SV LVOT 75.15 ml - DARINEL (continuity Vmax) 2.57 cm2 - DARINEL (continuity VTI) 2.79 cm2 - Tricuspid Valve Name Value Normal Range TR Vmax 2.96 m/sec - TR peak gradient 35 mmHg - RAP 3 mmHg - RVSP 38 mmHg - IVC diameter 1.78 cm (1.2 - 2.3) Pulmonic Valve/Qp:Qs Name Value Normal Range PV Vmax 0.96 m/sec - PV peak gradient 3.68 mmHg - TN end-diastolic Vmax 1.42 m/sec - PV acceleration time 64.7 msec - NDUM: 12/24/19 1217 Amended Report Transthoracic Echocardiogram Indication: R/O Endocarditis BP: 133/79 HR: 81 Conclusions *Global left ventricular systolic function is normal. *Mild concentric left ventricular hypertrophy is observed. *The estimated ejection fraction is 50-55%. *Abnormal left ventricular diastolic filling is observed, consistent with impaired relaxation. *The right ventricular global systolic function is mildly reduced. *There is no evidence of aortic regurgitation. *There is trace of mitral regurgitation. *There is trace tricuspid regurgitation. *The right ventricular systolic pressure is calculated at 38 mmHg. *There is trace pulmonic regurgitation. *No obvious endocardtis noted on mitral and aortic and tricuspid valve, if clinically indicated suggest JUAN Findings Left Ventricle: The left ventricular chamber size is normal. Mild concentric left ventricular hypertrophy is observed. Global left ventricular systolic function is normal. The estimated ejection fraction is 50-55%. Abnormal left ventricular diastolic filling is observed, consistent with impaired relaxation. Left Atrium: The left atrial chamber size is normal. Right Ventricle: The right ventricular cavity size is normal. The right ventricular global systolic function is mildly reduced. Right Atrium: The right atrial cavity size is normal. Aortic Valve: The aortic valve is trileaflet. There is no evidence of aortic regurgitation. Mitral Valve: The mitral valve leaflets are mildly thickened. There is trace of mitral regurgitation. Tricuspid Valve: The tricuspid valve leaflets are normal. There is trace tricuspid regurgitation. The right ventricular systolic pressure is calculated at 38 mmHg. Pulmonic Valve: The pulmonic valve appears normal. There is trace pulmonic regurgitation. Pericardium: There is no pericardial effusion. Aorta: There is no dilatation of the ascending aorta. There is no dilatation of the aortic root. Venous: The inferior vena cava appears normal in size. There is a greater than 50% respiratory change in the inferior vena cava dimension. Measurements Chambers 2D Name Value Normal Range IVSd (2D) 1.33 cm (0.6 - 1.1) LVPWd (2D) 1.29 cm (0.6 - 1.1) LVIDd (2D) 3.1 cm (3.7 - 5.6) LVIDs (2D) 2.26 cm (2 - 3.8) LV FS (2D) 27.25 % - EF Teichholz (2D) 54.5 % - Ao root diameter (2D) 2.84 cm (2 - 3.7) Volumes/Mass Name Value Normal Range LA ESV SP 4CH (A/L) 20.15 ml - LA ESV SP 2CH (A/L) 33.14 ml - LA ESV BP (A/L) 28.63 ml - LA ESV BP (A/L) index 15.39 ml/m2 - LA ESV SP 4CH (MOD) 18.4 ml - LA ESV SP 2CH (MOD) 29.82 ml - LA ESV BP (MOD) 25.89 ml - LA ESV BP (MOD) index 13.92 ml/m2 - Diastolic/Systolic Function Name Value Normal Range MV E-wave Vmax 1.1 m/sec - MV deceleration time 171.63 msec - MV A-wave Vmax 1.18 m/sec - MV E:A ratio 0.94 ratio - Aortic Valve Name Value Normal Range AV Vmax 1.37 m/sec - AV VTI 26.97 cm - AV peak gradient 7.5 mmHg - AV mean gradient 3.79 mmHg - LVOT diameter 2.03 cm - LVOT Vmax 1.09 m/sec - LVOT VTI 23.3 cm - LVOT peak gradient 4.76 mmHg - LVOT mean gradient 2.45 mmHg - SV LVOT 75.15 ml - DARINEL (continuity Vmax) 2.57 cm2 - DARINEL (continuity VTI) 2.79 cm2 - Tricuspid Valve Name Value Normal Range TR Vmax 2.96 m/sec - TR peak gradient 35 mmHg - RAP 3 mmHg - RVSP 38 mmHg - IVC diameter 1.78 cm (1.2 - 2.3) Pulmonic Valve/Qp:Qs Name Value Normal Range PV Vmax 0.96 m/sec - PV peak gradient 3.68 mmHg - TN end-diastolic Vmax 1.42 m/sec - PV acceleration time 64.7 msec - [place]/IV: Voiding Method Incontinent IV Catheter Type [Left Forearm INT / Saline Lock ] IV Catheter Type [Left Triple Lumen Cath Subclavian] IV Catheter Type [Right INT / Saline Lock Antecubital] Active Medications - Current Medications Current Medications: Generic Name Dose Route Start Last Admin Trade Name Abbi PRN Reason Stop Dose Admin Acetaminophen 650 mg 12/19/19 12:15 12/28/19 16:09 Tylenol PO 650 mg Q4H PRN Administration Fever >101 Lipase/Protease/Amylase 1 each 12/22/19 10:05 Pancreamber Dior 10,500 Unit FEEDTUBE PRN PRN For Clogged Feeding Tube Ascorbic Acid 500 mg 12/19/19 13:00 01/01/20 22:21 Vitamin C PO 500 mg Q12HR NIKOLAS Administration Atorvastatin Calcium 20 mg 12/19/19 22:00 01/01/20 22:21 Lipitor PO 20 mg QHS NIKOLAS Administration Bismuth Subsalicylate 524 mg 12/19/19 12:15 Pepto Bismol PO Q6H PRN Diarrhea Citalopram Hydrobromide 30 mg 12/19/19 14:00 01/01/20 09:02 Celexa PO 30 mg DAILY NIKOLAS Administration Ferrous Sulfate 308 mg 12/20/19 22:00 01/01/20 22:21 Ferrous Sulfate FEEDTUBE 308 mg BID NIKOLAS Administration Hydrophilic Ointment 1 applic 12/19/19 10:35 Vaseline Lip Therapy TP Q2HR PRN Dry Lips Ceftriaxone Sodium 2 gm in 100 mls @ 200 mls/hr 12/28/19 10:00 01/01/20 09:04 Rocephin/Ns 2 Gm/100 Ml IV 01/06/20 10:29 200 mls/hr Q24HR NIKOLAS Administration Lansoprazole 30 mg 12/23/19 10:00 01/01/20 22:21 Prevacid Solutab FEEDTUBE 30 mg BID NIKOLAS Administration Latanoprost 1 drops 12/19/19 22:00 01/01/20 22:22 Latanoprost 0.005% OD 1 drops QHS NIKOLAS Administration Lisinopril 10 mg 12/19/19 13:00 01/01/20 09:01 Zestril PO 10 mg QDAY NIKOLAS Administration Magnesium Oxide 400 mg 12/20/19 10:00 01/01/20 09:02 Mag-Ox PO 400 mg QDAY NIKOLAS Administration Multi-Ingred Cream/Lotion/Oil/Oint 1 applic 12/19/19 10:35 Artificial Tears Ophth Oint OU Q4HR PRN Dry Eye(s) Quetiapine Fumarate 50 mg 12/19/19 14:00 01/01/20 22:21 Seroquel PO 50 mg TID NIKOLAS Administration Simple Syrup 15 ml 12/22/19 09:51 Simple Syrup FEEDTUBE PRN PRN Hypoglycemia Simple Syrup 30 ml 12/22/19 10:05 Simple Syrup FEEDTUBE PRN PRN Hypoglycemia Sodium Bicarbonate 325 mg 12/22/19 10:05 Sodium Bicarbonate FEEDTUBE PRN PRN For Clogged Feeding Tube Sodium Chloride 10 ml 12/19/19 22:00 01/01/20 22:21 Sodium Chloride Flush Syringe 10 Ml IV 10 ml BID NIKOLAS Administration Sodium Chloride 10 ml 12/19/19 12:13 Sodium Chloride Flush Syringe 10 Ml IV PRN PRN LINE FLUSH Thiamine HCl 100 mg 12/20/19 10:00 01/01/20 09:02 Vitamin B-1 PO 100 mg DAILY NIKOLAS Administration Timolol Maleate 1 drops 12/19/19 22:00 01/01/20 22:22 Timoptic OU 1 drops BID NIKOLAS Administration Nutrition/Malnutrition Assess - Dietary Evaluation Nutrition/Malnutrition Findings: Nutrition Notes Start: 12/20/19 08:53 Freq: Status: Active Protocol: Document 12/31/19 11:45 LM (Rec: 12/31/19 11:54 LM [id number]) Nutrition Notes Initial or Follow up Reassessment Current Diagnosis Acute Kidney Injury,COPD, Diabetes,Hypertension, Respiratory Failure,Stroke Other Pertinent Diagnosis GI bleed, encephalopathy, debility Current Diet Mech soft + Cyclic TF Glucerna 1.2 at 65ml/hr Labs/Tests POC glu 156 Pertinent Medications Mag-Ox Height 5 ft 6 in Weight 74.7 kg [place] Body Weight (kg) 64.54 BMI 26.6 Weight Status Overweight Subjective/Other Information Per RN, pt has been eating. Pt ate a quarter of breakfast this AM and had 50% intakes yesterday. Pt tolerating Cylic TF. Percent of energy/protein needs met: 96%/100% (38% of meals + cyclic TF Burn Absent Trauma Absent GI Symptoms Other Current % PO Negligible Minimum of two criteria No physical signs of malnutrition #1 Nutrition Diagnosis Inadequate oral intake As Evidenced by Signs and Symptoms Pt's diet advanced to mech soft with cyclic TF Diagnosis Progress(for reassessment Improved documentation) Is patient on ventilator? No Is Patient Ambulatory and/or Out of Bed No REE-([facility]-confined to bed) [phone] Calculation Used for Recommendations [facility] Additional Notes Protein: 60-90g (0.8-1.2g/kg) Fluid: 1 ml/kcal Nutrition Intervention Change Diet Order: Mechanical soft with cyclic TF Nutrition Support: Cyclic TF from 7 PM to 7 AM ( 12 hr) Glucerna 1.2 at 65 ml/ hr Flush 50 ml q4h Kcal 936 Protein (gm) 47 Fluid (mL) 628 Goal #1 TF tolerance Goal #2 Meet at least 75% of energy and protein needs via TF and mech soft diet Anticipated Discharge Needs: TF and mech soft diet Follow-Up By: 04/06/20 Additional Comments F/U for intakes, TF tolerance
[2020-01-02] MEDS: LANSOPRAZOLE 30 MG SOLUTAB FEEDTUBE SCH ×2 (09:37→21:56)
[2020-01-02] MEDS: QUEtiapine 25 MG TAB PO SCH ×3 (09:37→21:56)
[2020-01-02] MEDS: ASCORBIC ACID 500 MG TAB PO SCH ×2 (09:37→21:56)
[2020-01-02] MEDS: MAGNESIUM OXIDE 400 MG TAB PO SCH (09:37)
[2020-01-02] MEDS: THIAMINE 100 MG TAB PO SCH (09:37)
[2020-01-02] MEDS: cefTRIAXone/NS 2 GM/100 ML 2 GM/100 ML BAG IV SCH (09:37)
[2020-01-02] MEDS: CITALOPRAM 10 MG TAB PO SCH (09:38)
[2020-01-02] MEDS: FERROUS SULFATE 308 MG (62mg Elemental Iron) / 7 ML ELIXIR FEEDTUBE SCH ×2 (09:38→21:57)
[2020-01-02] MEDS: LISINOPRIL 10 MG TAB PO SCH (09:43)
[2020-01-02] MEDS: TIMOLOL 0.5% OPHTH SOLN 5 ML OU SCH ×2 (09:44→21:55)
--- NOTE | 2020-01-02 15:21 | Progress Note ---
Assessment and Plan Acute upper GI bleed Severe Sepsis witrh Shock Acute hypoxemic respiratory failure Diabetes mellitus type 2 Hypertension Metabolic acidosis/lactic acidosis - continue contact and droplet isolation and follow clinically due to COVID-19 exposure - follow COVID-19 test result - continue H&H prn re: G.I. 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 re-evaluate in am & prn Subjective Date of service: 01/02/20 Principal diagnosis: Ac upper GI bleed; Shock; Ac hypoxemic resp failure; DM II; H/O HTN Interval history: Patient is seen today for: Acute upper GI bleed; Severe Sepsis witrh Shock; Acute hypoxemic respiratory failure; DM II; HTN; Metabolic acidosis/lactic acidosis Seen and examined at bedside; 24hour events reviewed; nursing and respiratory care staff consulted; no adverse overnight events reported to me; resting peacefully in bed; Objective Vital Signs - 12hr 01/02/20 01/02/20 01/02/20 04:44 09:42 10:00 Temperature 98.2 F Pulse Rate 90 Pulse Rate [ 89 From Monitor] Respiratory 20 20 Rate Blood Pressure 140/89 143/91 O2 Sat by Pulse 95 100 Oximetry 01/02/20 11:42 Temperature Pulse Rate 89 Pulse Rate [ From Monitor] Respiratory 20 Rate Blood Pressure 115/81 O2 Sat by Pulse 96 Oximetry Constitutional: no acute distress Eyes: non-icteric ENT: oropharynx moist Neck: supple, no lymphadenopathy, no JVD Effort: normal Ascultation: Bilateral: diminished breath sounds, rhonchi Percussion: Bilateral: not dull Cardiovascular: regular rate and rhythm Gastrointestinal: normoactive bowel sounds, soft, non-tender, non-distended Integumentary: rash Extremities: no cyanosis, no edema, pulses normal Neurologic: pupils equal and round, other (mumbles sometimes appropriate replies to questions) Psychiatric: other (affect flat) CBC and BMP: 12/27/19 04:32 12/27/19 04:32 ABG, PT/INR, D-dimer: ABG ABG pH 7.432 pH Units (7.350-7.450) 12/20/19 12:15 ABG pCO2 36.0 mm Hg 12/20/19 12:15 ABG pO2 150.8 mm Hg (80.0-90.0) H 12/20/19 12:15 ABG O2 Saturation 98.9 % (95.0-99.0) 12/20/19 12:15 PT/INR, D-dimer PT 15.3 Sec. (12.2-14.9) H 12/19/19 09:14 INR 1.19 (0.87-1.13) H 12/19/19 09:14 Abnormal lab findings: Abnormal Labs 12/19/19 12/19/19 12/19/19 09:10 09:14 09:14 WBC 12.1 H RBC Hgb 10.0 L Hct 32.3 L MCV 81 L MCH 25 L MCHC 31 L RDW 17.7 H Lymph % (Auto) [place] % (Auto) [place] # 0.9 H Seg Neutrophils % 78.2 H Seg Neutrophils # 9.5 H PT 15.3 H INR 1.19 H ABG pH ABG pO2 ABG HCO3 ABG O2 Saturation ABG Base Excess ABG Hemoglobin Sodium Potassium Chloride Carbon Dioxide BUN Creatinine Glucose POC Glucose Lactic Acid Calcium Albumin Vancomycin Trough Crossmatch See Detail 12/19/19 12/19/19 12/19/19 09:14 09:14 10:05 WBC RBC Hgb Hct MCV MCH MCHC RDW Lymph % (Auto) [place] % (Auto) [place] # Seg Neutrophils % Seg Neutrophils # PT INR ABG pH ABG pO2 ABG HCO3 ABG O2 Saturation ABG Base Excess ABG Hemoglobin Sodium Potassium Chloride Carbon Dioxide 20 L BUN 55 H Creatinine Glucose 222 H POC Glucose 212 H Lactic Acid 3.10 H* Calcium Albumin 3.4 L Vancomycin Trough Crossmatch 12/19/19 12/19/19 12/19/19 10:30 12:30 15:55 WBC RBC Hgb Hct MCV MCH MCHC RDW Lymph % (Auto) [place] % (Auto) [place] # Seg Neutrophils % Seg Neutrophils # PT INR ABG pH 7.277 L ABG pO2 195.1 H ABG HCO3 19.2 L ABG O2 Saturation 99.2 H ABG Base Excess -7.1 L ABG Hemoglobin 9.4 L Sodium Potassium Chloride Carbon Dioxide BUN Creatinine Glucose POC Glucose Lactic Acid 2.80 H* 5.10 H* Calcium Albumin Vancomycin Trough Crossmatch 12/20/19 12/20/19 12/20/19 04:20 04:59 04:59 WBC 11.3 H RBC 3.21 L Hgb 8.0 L Hct 26.0 L D MCV 81 L MCH 25 L MCHC 31 L RDW 17.7 H Lymph % (Auto) 12.2 L [place] % (Auto) 11.1 H [place] # 1.2 H Seg Neutrophils % 76.5 H Seg Neutrophils # 8.6 H PT INR ABG pH ABG pO2 139.7 H ABG HCO3 ABG O2 Saturation ABG Base Excess ABG Hemoglobin 9.2 L Sodium 147 H Potassium Chloride 113.7 H Carbon Dioxide BUN 29 H Creatinine 0.6 L D Glucose 172 H POC Glucose Lactic Acid Calcium Albumin Vancomycin Trough Crossmatch 12/20/19 12/21/19 12/21/19 12:15 04:38 04:38 WBC RBC 2.55 L Hgb 6.5 L Hct 20.9 L MCV 82 L MCH 26 L MCHC 31 L RDW 18.1 H Lymph % (Auto) [place] % (Auto) 10.8 H [place] # 0.9 H Seg Neutrophils % 70.8 H Seg Neutrophils # PT INR ABG pH ABG pO2 150.8 H ABG HCO3 ABG O2 Saturation ABG Base Excess ABG Hemoglobin 5.5 L Sodium 149 H Potassium 3.5 L Chloride 114.9 H Carbon Dioxide BUN 21 H Creatinine 0.5 L Glucose 114 H POC Glucose Lactic Acid Calcium Albumin Vancomycin Trough Crossmatch 12/21/19 12/22/19 12/22/19 23:02 10:34 10:34 WBC RBC 3.24 L Hgb 7.7 L 8.4 L Hct 24.8 L 27.0 L MCV 83 L MCH 26 L MCHC 31 L RDW 17.7 H Lymph % (Auto) [place] % (Auto) [place] # Seg Neutrophils % Seg Neutrophils # PT INR ABG pH ABG pO2 ABG HCO3 ABG O2 Saturation ABG Base Excess ABG Hemoglobin Sodium 147 H Potassium Chloride 112.3 H Carbon Dioxide 20 L BUN Creatinine 0.5 L Glucose 102 H POC Glucose Lactic Acid Calcium Albumin Vancomycin Trough Crossmatch 12/22/19 12/22/19 12/22/19 11:58 18:15 23:47 WBC RBC Hgb Hct MCV MCH MCHC RDW Lymph % (Auto) [place] % (Auto) [place] # Seg Neutrophils % Seg Neutrophils # PT INR ABG pH ABG pO2 ABG HCO3 ABG O2 Saturation ABG Base Excess ABG Hemoglobin Sodium Potassium Chloride Carbon Dioxide BUN Creatinine Glucose POC Glucose 126 H 114 H 121 H Lactic Acid Calcium Albumin Vancomycin Trough Crossmatch 12/23/19 12/23/19 12/23/19 05:46 06:38 06:38 WBC RBC 2.94 L Hgb 7.6 L Hct 23.8 L MCV 81 L MCH 26 L MCHC RDW 17.0 H Lymph % (Auto) [place] % (Auto) [place] # Seg Neutrophils % Seg Neutrophils # PT INR ABG pH ABG pO2 ABG HCO3 ABG O2 Saturation ABG Base Excess ABG Hemoglobin Sodium Potassium 3.3 L Chloride 107.5 H Carbon Dioxide BUN Creatinine 0.4 L Glucose 132 H POC Glucose 124 H Lactic Acid Calcium 8.1 L Albumin Vancomycin Trough Crossmatch 12/23/19 12/23/19 12/24/19 15:54 20:50 00:06 WBC RBC Hgb Hct MCV MCH MCHC RDW Lymph % (Auto) [place] % (Auto) [place] # Seg Neutrophils % Seg Neutrophils # PT INR ABG pH ABG pO2 ABG HCO3 ABG O2 Saturation ABG Base Excess ABG Hemoglobin Sodium Potassium Chloride Carbon Dioxide BUN Creatinine Glucose POC Glucose 150 H 135 H Lactic Acid Calcium Albumin Vancomycin Trough 21.4 H Crossmatch 12/24/19 12/24/19 12/25/19 05:34 18:28 05:31 WBC RBC Hgb Hct MCV MCH MCHC RDW Lymph % (Auto) [place] % (Auto) [place] # Seg Neutrophils % Seg Neutrophils # PT INR ABG pH ABG pO2 ABG HCO3 ABG O2 Saturation ABG Base Excess ABG Hemoglobin Sodium Potassium Chloride Carbon Dioxide BUN Creatinine Glucose POC Glucose 179 H 156 H 179 H Lactic Acid Calcium Albumin Vancomycin Trough Crossmatch 12/25/19 12/26/19 12/26/19 17:50 05:00 05:00 WBC 16.9 H RBC 2.91 L Hgb 7.3 L Hct 22.9 L MCV 79 L MCH 25 L MCHC RDW 17.7 H Lymph % (Auto) [place] % (Auto) [place] # Seg Neutrophils % Seg Neutrophils # PT INR ABG pH ABG pO2 ABG HCO3 ABG O2 Saturation ABG Base Excess ABG Hemoglobin Sodium 135 L D Potassium 3.1 L Chloride 96.6 L Carbon Dioxide BUN 7 L Creatinine 0.5 L Glucose 180 H POC Glucose 211 H Lactic Acid Calcium 8.0 L Albumin Vancomycin Trough Crossmatch 12/26/19 12/26/19 12/27/19 16:57 22:42 04:32 WBC 14.6 H RBC 2.95 L Hgb 7.4 L Hct 23.4 L MCV 79 L MCH 25 L MCHC RDW 18.4 H Lymph % (Auto) [place] % (Auto) [place] # Seg Neutrophils % Seg Neutrophils # PT INR ABG pH ABG pO2 ABG HCO3 ABG O2 Saturation ABG Base Excess ABG Hemoglobin Sodium Potassium Chloride Carbon Dioxide BUN Creatinine Glucose POC Glucose 117 H 174 H Lactic Acid Calcium Albumin Vancomycin Trough Crossmatch 12/27/19 12/27/19 12/29/19 04:32 05:59 06:48 WBC RBC Hgb Hct MCV MCH MCHC RDW Lymph % (Auto) [place] % (Auto) [place] # Seg Neutrophils % Seg Neutrophils # PT INR ABG pH ABG pO2 ABG HCO3 ABG O2 Saturation ABG Base Excess ABG Hemoglobin Sodium Potassium Chloride Carbon Dioxide BUN Creatinine 0.7 L Glucose 189 H POC Glucose 183 H 212 H Lactic Acid Calcium Albumin Vancomycin Trough Crossmatch 12/29/19 12/29/19 12/30/19 11:23 17:44 00:23 WBC RBC Hgb Hct MCV MCH MCHC RDW Lymph % (Auto) [place] % (Auto) [place] # Seg Neutrophils % Seg Neutrophils # PT INR ABG pH ABG pO2 ABG HCO3 ABG O2 Saturation ABG Base Excess ABG Hemoglobin Sodium Potassium Chloride Carbon Dioxide BUN Creatinine Glucose POC Glucose 170 H 168 H 145 H Lactic Acid Calcium Albumin Vancomycin Trough Crossmatch 12/30/19 06:26 WBC RBC Hgb Hct MCV MCH MCHC RDW Lymph % (Auto) [place] % (Auto) [place] # Seg Neutrophils % Seg Neutrophils # PT INR ABG pH ABG pO2 ABG HCO3 ABG O2 Saturation ABG Base Excess ABG Hemoglobin Sodium Potassium Chloride Carbon Dioxide BUN Creatinine Glucose POC Glucose 156 H Lactic Acid Calcium Albumin Vancomycin Trough Crossmatch Allied health notes reviewed: nursing
[2020-01-02] MEDS: LATANOPROST 0.005% OPHTH SOLN 2.5 ML OD SCH (21:56)
[2020-01-03 05:19] LABS: Basophils % (Auto) 0.6 % (0.0-1.8); Eosinophils # (Auto) 0.3 K/mm3 (0.0-0.4); Eosinophils % (Auto) 3.6 % (0.0-4.3); Hematocrit 28.1 % (35.5-45.6); Lymphocytes # (Auto) 1.8 K/mm3 (1.2-5.4); Lymphocytes % (Auto) 23.5 % (13.4-35.0); Mean Corpuscular HGB Conc 32 % (32-34); Mean Corpuscular Volume 78 fl (84-94); Monocytes # (Auto) 0.5 K/mm3 (0.0-0.8); Monocytes % (Auto) 7.1 % (0.0-7.3); Platelet Count 465 K/mm3 (140-440); Red Cell Distribution Width 19.4 % (13.2-15.2)
[2020-01-03 05:42] LABS: BUN/Creatinine Ratio 19; Blood Urea Nitrogen 13 mg/dL (9-20); Calcium 9.1 mg/dL (8.4-10.2); Hemolysis Index 8
[2020-01-03] MEDS: QUEtiapine 25 MG TAB PO SCH ×3 (08:00→22:12)
--- NOTE | 2020-01-03 09:31 | Progress Note ---
Assessment and Plan Acute hypoxemic respiratory failure s/p MVS Acute upper GI bleed s/p EGD Oropharyngeal dysphagia s/p PEG Severe Sepsis with Shock Strep anginosus bacteremia: Diabetes mellitus type 2 Hypertension Metabolic acidosis/lactic acidosis Continue all supportive care as outlined Continue aspiration precautions Enteric nutrition via PEG Awaiting COVID-19 test results for discharge planning Antibiotics to complete course - COVID-19 testing pending re: ER exposure -once results are available, discharge to his facility if COVID-19 negative - supplemental oxygen as needed to keep O2 sat's > 90% - continue contact and droplet isolation and follow clinically due to COVID-19 exposure - prn bronchodilators with pulmonary hygiene per RT - mobility protocol, off loading, and skin assessment per protocol for pressure ulcer prevention - continue accuchecks with glycemic control per SSI for target BG < 180 mg/dl - GI & VTE prophylaxis with PPI & SCD's - Flu & pneumovax addressed per protocol - continue other care per attending / other consultants Subjective Date of service: 01/03/20 Principal diagnosis: Ac upper GI bleed; Shock; Ac hypoxemic resp failure; DM II; H/O HTN Interval history: Patient is seen today for: Acute upper GI bleed; Severe Sepsis with Shock; Acute hypoxemic respiratory failure s/p MVS; DM II; HTN; Metabolic acidosis/lactic acidosis Seen and examined at bedside; 24hour events reviewed; nursing and respiratory care staff consulted; no adverse overnight events reported to me; resting peacefully in bed; no gross G.I. bleeding; no emesis or overt aspiration, non- verbal; more awake, off supplemental oxygen 01/02/2020 Awaiting COVID-19 testing for discharge planning. On IV Ceftriaxone to complete course on 01/16/2020 01/03/2020 -No new issue overnight. Awaiting COVID-19 test results for discharge planning Objective Vital Signs - 12hr 01/02/20 01/02/20 22:00 22:48 Temperature 98.6 F Pulse Rate 97 H Respiratory 18 Rate Blood Pressure 128/78 O2 Sat by Pulse 100 97 Oximetry Constitutional: no acute distress Eyes: non-icteric ENT: oropharynx moist Neck: supple, no lymphadenopathy, no JVD Effort: normal Ascultation: Bilateral: diminished breath sounds, rhonchi Percussion: Bilateral: not dull Cardiovascular: regular rate and rhythm Gastrointestinal: normoactive bowel sounds, soft, non-tender, non-distended Integumentary: rash Extremities: no cyanosis, no edema, pulses normal Neurologic: pupils equal and round, other (mumbles ) Psychiatric: other (affect flat) CBC and BMP: 01/03/20 16:56 01/03/20 16:56 ABG, PT/INR, D-dimer: ABG ABG pH 7.432 pH Units (7.350-7.450) 12/20/19 12:15 ABG pCO2 36.0 mm Hg 12/20/19 12:15 ABG pO2 150.8 mm Hg (80.0-90.0) H 12/20/19 12:15 ABG O2 Saturation 98.9 % (95.0-99.0) 12/20/19 12:15 PT/INR, D-dimer PT 15.3 Sec. (12.2-14.9) H 12/19/19 09:14 INR 1.19 (0.87-1.13) H 12/19/19 09:14 Abnormal lab findings: Abnormal Labs 12/19/19 12/19/19 12/19/19 09:10 09:14 09:14 WBC 12.1 H RBC Hgb 10.0 L Hct 32.3 L MCV 81 L MCH 25 L MCHC 31 L RDW 17.7 H Plt Count Lymph % (Auto) [place] % (Auto) [place] # 0.9 H Seg Neutrophils % 78.2 H Seg Neutrophils # 9.5 H PT 15.3 H INR 1.19 H ABG pH ABG pO2 ABG HCO3 ABG O2 Saturation ABG Base Excess ABG Hemoglobin Sodium Potassium Chloride Carbon Dioxide BUN Creatinine Glucose POC Glucose Lactic Acid Calcium Albumin Vancomycin Trough Crossmatch See Detail 12/19/19 12/19/19 12/19/19 09:14 09:14 10:05 WBC RBC Hgb Hct MCV MCH MCHC RDW Plt Count Lymph % (Auto) [place] % (Auto) [place] # Seg Neutrophils % Seg Neutrophils # PT INR ABG pH ABG pO2 ABG HCO3 ABG O2 Saturation ABG Base Excess ABG Hemoglobin Sodium Potassium Chloride Carbon Dioxide 20 L BUN 55 H Creatinine Glucose 222 H POC Glucose 212 H Lactic Acid 3.10 H* Calcium Albumin 3.4 L Vancomycin Trough Crossmatch 12/19/19 12/19/19 12/19/19 10:30 12:30 15:55 WBC RBC Hgb Hct MCV MCH MCHC RDW Plt Count Lymph % (Auto) [place] % (Auto) [place] # Seg Neutrophils % Seg Neutrophils # PT INR ABG pH 7.277 L ABG pO2 195.1 H ABG HCO3 19.2 L ABG O2 Saturation 99.2 H ABG Base Excess -7.1 L ABG Hemoglobin 9.4 L Sodium Potassium Chloride Carbon Dioxide BUN Creatinine Glucose POC Glucose Lactic Acid 2.80 H* 5.10 H* Calcium Albumin Vancomycin Trough Crossmatch 12/20/19 12/20/19 12/20/19 04:20 04:59 04:59 WBC 11.3 H RBC 3.21 L Hgb 8.0 L Hct 26.0 L D MCV 81 L MCH 25 L MCHC 31 L RDW 17.7 H Plt Count Lymph % (Auto) 12.2 L [place] % (Auto) 11.1 H [place] # 1.2 H Seg Neutrophils % 76.5 H Seg Neutrophils # 8.6 H PT INR ABG pH ABG pO2 139.7 H ABG HCO3 ABG O2 Saturation ABG Base Excess ABG Hemoglobin 9.2 L Sodium 147 H Potassium Chloride 113.7 H Carbon Dioxide BUN 29 H Creatinine 0.6 L D Glucose 172 H POC Glucose Lactic Acid Calcium Albumin Vancomycin Trough Crossmatch 12/20/19 12/21/19 12/21/19 12:15 04:38 04:38 WBC RBC 2.55 L Hgb 6.5 L Hct 20.9 L MCV 82 L MCH 26 L MCHC 31 L RDW 18.1 H Plt Count Lymph % (Auto) [place] % (Auto) 10.8 H [place] # 0.9 H Seg Neutrophils % 70.8 H Seg Neutrophils # PT INR ABG pH ABG pO2 150.8 H ABG HCO3 ABG O2 Saturation ABG Base Excess ABG Hemoglobin 5.5 L Sodium 149 H Potassium 3.5 L Chloride 114.9 H Carbon Dioxide BUN 21 H Creatinine 0.5 L Glucose 114 H POC Glucose Lactic Acid Calcium Albumin Vancomycin Trough Crossmatch 12/21/19 12/22/19 12/22/19 23:02 10:34 10:34 WBC RBC 3.24 L Hgb 7.7 L 8.4 L Hct 24.8 L 27.0 L MCV 83 L MCH 26 L MCHC 31 L RDW 17.7 H Plt Count Lymph % (Auto) [place] % (Auto) [place] # Seg Neutrophils % Seg Neutrophils # PT INR ABG pH ABG pO2 ABG HCO3 ABG O2 Saturation ABG Base Excess ABG Hemoglobin Sodium 147 H Potassium Chloride 112.3 H Carbon Dioxide 20 L BUN Creatinine 0.5 L Glucose 102 H POC Glucose Lactic Acid Calcium Albumin Vancomycin Trough Crossmatch 12/22/19 12/22/19 12/22/19 11:58 18:15 23:47 WBC RBC Hgb Hct MCV MCH MCHC RDW Plt Count Lymph % (Auto) [place] % (Auto) [place] # Seg Neutrophils % Seg Neutrophils # PT INR ABG pH ABG pO2 ABG HCO3 ABG O2 Saturation ABG Base Excess ABG Hemoglobin Sodium Potassium Chloride Carbon Dioxide BUN Creatinine Glucose POC Glucose 126 H 114 H 121 H Lactic Acid Calcium Albumin Vancomycin Trough Crossmatch 12/23/19 12/23/19 12/23/19 05:46 06:38 06:38 WBC RBC 2.94 L Hgb 7.6 L Hct 23.8 L MCV 81 L MCH 26 L MCHC RDW 17.0 H Plt Count Lymph % (Auto) [place] % (Auto) [place] # Seg Neutrophils % Seg Neutrophils # PT INR ABG pH ABG pO2 ABG HCO3 ABG O2 Saturation ABG Base Excess ABG Hemoglobin Sodium Potassium 3.3 L Chloride 107.5 H Carbon Dioxide BUN Creatinine 0.4 L Glucose 132 H POC Glucose 124 H Lactic Acid Calcium 8.1 L Albumin Vancomycin Trough Crossmatch 12/23/19 12/23/19 12/24/19 15:54 20:50 00:06 WBC RBC Hgb Hct MCV MCH MCHC RDW Plt Count Lymph % (Auto) [place] % (Auto) [place] # Seg Neutrophils % Seg Neutrophils # PT INR ABG pH ABG pO2 ABG HCO3 ABG O2 Saturation ABG Base Excess ABG Hemoglobin Sodium Potassium Chloride Carbon Dioxide BUN Creatinine Glucose POC Glucose 150 H 135 H Lactic Acid Calcium Albumin Vancomycin Trough 21.4 H Crossmatch 12/24/19 12/24/19 12/25/19 05:34 18:28 05:31 WBC RBC Hgb Hct MCV MCH MCHC RDW Plt Count Lymph % (Auto) [place] % (Auto) [place] # Seg Neutrophils % Seg Neutrophils # PT INR ABG pH ABG pO2 ABG HCO3 ABG O2 Saturation ABG Base Excess ABG Hemoglobin Sodium Potassium Chloride Carbon Dioxide BUN Creatinine Glucose POC Glucose 179 H 156 H 179 H Lactic Acid Calcium Albumin Vancomycin Trough Crossmatch 12/25/19 12/26/19 12/26/19 17:50 05:00 05:00 WBC 16.9 H RBC 2.91 L Hgb 7.3 L Hct 22.9 L MCV 79 L MCH 25 L MCHC RDW 17.7 H Plt Count Lymph % (Auto) [place] % (Auto) [place] # Seg Neutrophils % Seg Neutrophils # PT INR ABG pH ABG pO2 ABG HCO3 ABG O2 Saturation ABG Base Excess ABG Hemoglobin Sodium 135 L D Potassium 3.1 L Chloride 96.6 L Carbon Dioxide BUN 7 L Creatinine 0.5 L Glucose 180 H POC Glucose 211 H Lactic Acid Calcium 8.0 L Albumin Vancomycin Trough Crossmatch 12/26/19 12/26/19 12/27/19 16:57 22:42 04:32 WBC 14.6 H RBC 2.95 L Hgb 7.4 L Hct 23.4 L MCV 79 L MCH 25 L MCHC RDW 18.4 H Plt Count Lymph % (Auto) [place] % (Auto) [place] # Seg Neutrophils % Seg Neutrophils # PT INR ABG pH ABG pO2 ABG HCO3 ABG O2 Saturation ABG Base Excess ABG Hemoglobin Sodium Potassium Chloride Carbon Dioxide BUN Creatinine Glucose POC Glucose 117 H 174 H Lactic Acid Calcium Albumin Vancomycin Trough Crossmatch 12/27/19 12/27/19 12/29/19 04:32 05:59 06:48 WBC RBC Hgb Hct MCV MCH MCHC RDW Plt Count Lymph % (Auto) [place] % (Auto) [place] # Seg Neutrophils % Seg Neutrophils # PT INR ABG pH ABG pO2 ABG HCO3 ABG O2 Saturation ABG Base Excess ABG Hemoglobin Sodium Potassium Chloride Carbon Dioxide BUN Creatinine 0.7 L Glucose 189 H POC Glucose 183 H 212 H Lactic Acid Calcium Albumin Vancomycin Trough Crossmatch 12/29/19 12/29/19 12/30/19 11:23 17:44 00:23 WBC RBC Hgb Hct MCV MCH MCHC RDW Plt Count Lymph % (Auto) [place] % (Auto) [place] # Seg Neutrophils % Seg Neutrophils # PT INR ABG pH ABG pO2 ABG HCO3 ABG O2 Saturation ABG Base Excess ABG Hemoglobin Sodium Potassium Chloride Carbon Dioxide BUN Creatinine Glucose POC Glucose 170 H 168 H 145 H Lactic Acid Calcium Albumin Vancomycin Trough Crossmatch 12/30/19 01/02/20 01/03/20 06:26 23:26 04:47 WBC RBC 3.60 L Hgb 9.0 L Hct 28.1 L MCV 78 L MCH 25 L MCHC RDW 19.4 H Plt Count 465 H Lymph % (Auto) [place] % (Auto) [place] # Seg Neutrophils % Seg Neutrophils # PT INR ABG pH ABG pO2 ABG HCO3 ABG O2 Saturation ABG Base Excess ABG Hemoglobin Sodium Potassium Chloride Carbon Dioxide BUN Creatinine Glucose POC Glucose 156 H 139 H Lactic Acid Calcium Albumin Vancomycin Trough Crossmatch 01/03/20 01/03/20 04:47 06:23 WBC RBC Hgb Hct MCV MCH MCHC RDW Plt Count Lymph % (Auto) [place] % (Auto) [place] # Seg Neutrophils % Seg Neutrophils # PT INR ABG pH ABG pO2 ABG HCO3 ABG O2 Saturation ABG Base Excess ABG Hemoglobin Sodium Potassium Chloride Carbon Dioxide BUN Creatinine 0.7 L Glucose 131 H POC Glucose 134 H Lactic Acid Calcium Albumin Vancomycin Trough Crossmatch Allied health notes reviewed: nursing
--- NOTE | 2020-01-03 10:09 | Progress Note ---
Assessment and Plan Assessment and plan: Acute upper GI bleed. Patient underwent endoscopy which revealed esophagitis in the lower third of the esophagus. There was a cratered, clean based ulcer in the incisura of the stomach. No high risk bleeding stigmata was seen. Continue to monitor H&H and transfuse for hemoglobin less than 7. Continue PPI. Acute hypoxic respiratory failure. Cont. O2 to maintain sats Diabetes mellitus type 2. Continue Accu-Cheks and sliding scale insulin. Hypertension. Patient actually hypotensive given the bleed. Metabolic acidosis/lactic acidosis. Etiology likely secondary to hypotension/hypoperfusion from GI bleed. Patient with no obvious signs of infection. Patient remains asymptomatic, however his facility won't take him back without negative test. Agree with testing for now, though his risk of infection is extremely low. -anticipate to d/c on ceftriaxone 2 g IV q day total 14 days till 01/06/2020. Discussed w rn case management 12/29/2019. Patient still with low-grade fever yesterday of 100.5. Patient currently satting 98% on room air. Patient continues to remain asymptomatic, however his facility won't take him back without negative test. Await for negative COVID-19 test. 12/30/2019. Patient still with low-grade fever 100.5. Patient requiring no oxygen. Patient continues to remain asymptomatic, however his facility won't take him back without negative test. Await for negative COVID-19 test. 12/31/19 Patient requiring no oxygen. Patient continues to remain asymptomatic, however his facility won't take him back without negative test. Await for negative COVID-19 test. 01/01/20 Patient requiring no oxygen. Patient continues to remain asymptomatic, however his facility won't take him back without negative test. Await for negative COVID-19 test. 01/02/2020 Patient requiring no oxygen. Patient continues to remain asymptomatic, however his facility won't take him back without negative test. Await for negative COVID-19 test. 01/03/2020 Patient requiring no oxygen. Patient continues to remain asymptomatic, however his facility won't take him back without negative test. Await for negative COVID-19 test. A new test will be sent to [facility] today History Interval history: The patient is a 54 yo male presenting from long-term with melena; pt with h/o cva, non-verbal, with chronic peg tube. h/o gastric ulcer from prior endoscopies. upon arrival, pt had large episode of emesis with clots. intubated for airway protection. hypotensive initially and improved with fluid boluses. No new issues overnight Hospitalist Physical - Constitutional Vitals: Temp Pulse Resp BP Pulse Ox 98.6 F 97 H 18 128/78 97 01/02/20 22:48 01/02/20 22:48 01/02/20 22:48 01/02/20 22:48 01/02/20 22:48 General appearance: Present: other (Orally intubatedon mechanical ventilation) - EENT Eyes: Present: PERRL, EOM intact ENT: hearing intact, clear oral mucosa, dentition normal - Neck Neck: Present: supple, normal ROM - Respiratory Respiratory effort: normal Respiratory: bilateral: CTA - Cardiovascular Rhythm: regular Heart Sounds: Present: S1 & S2. Absent: gallop, rub - Extremities Extremities: no ischemia, No edema, Full ROM - Abdominal General gastrointestinal: soft, non-tender, non-distended, normal bowel sounds - Integumentary Integumentary: Present: clear, warm, dry - Neurologic Neurologic: CNII-XII intact, moves all extremities Results - Labs CBC & Chem 7: 01/03/20 04:47 01/03/20 04:47 Labs: Laboratory Last Values WBC 7.5 K/mm3 (4.5-11.0) 01/03/20 04:47 RBC 3.60 M/mm3 (3.65-5.03) L 01/03/20 04:47 Hgb 9.0 gm/dl (11.8-15.2) L 01/03/20 04:47 Hct 28.1 % (35.5-45.6) L 01/03/20 04:47 MCV 78 fl (84-94) L 01/03/20 04:47 MCH 25 pg (28-32) L 01/03/20 04:47 MCHC 32 % (32-34) 01/03/20 04:47 RDW 19.4 % (13.2-15.2) H 01/03/20 04:47 Plt Count 465 K/mm3 (140-440) H 01/03/20 04:47 Lymph % (Auto) 23.5 % (13.4-35.0) 01/03/20 04:47 [place] % (Auto) 7.1 % (0.0-7.3) 01/03/20 04:47 Eos % (Auto) 3.6 % (0.0-4.3) 01/03/20 04:47 Baso % (Auto) 0.6 % (0.0-1.8) 01/03/20 04:47 Lymph # 1.8 K/mm3 (1.2-5.4) 01/03/20 04:47 [place] # 0.5 K/mm3 (0.0-0.8) 01/03/20 04:47 Eos # 0.3 K/mm3 (0.0-0.4) 01/03/20 04:47 Baso # 0.0 K/mm3 (0.0-0.1) 01/03/20 04:47 Seg Neutrophils % 65.2 % (40.0-70.0) 01/03/20 04:47 Seg Neutrophils # 4.9 K/mm3 (1.8-7.7) 01/03/20 04:47 PT 15.3 Sec. (12.2-14.9) H 12/19/19 09:14 INR 1.19 (0.87-1.13) H 12/19/19 09:14 APTT 26.4 Sec. (24.2-36.6) 12/19/19 09:14 ABG pH 7.432 pH Units (7.350-7.450) 12/20/19 12:15 ABG pCO2 36.0 mm Hg 12/20/19 12:15 ABG pO2 150.8 mm Hg (80.0-90.0) H 12/20/19 12:15 ABG HCO3 23.5 mmol/L (20.0-26.0) 12/20/19 12:15 ABG O2 Saturation 98.9 % (95.0-99.0) 12/20/19 12:15 ABG O2 Content 7.8 (0.0-44) 12/20/19 12:15 ABG Base Excess -0.8 mmol/L (-2.0-3.0) 12/20/19 12:15 ABG Hemoglobin 5.5 gm/dl (14.0-18.0) L 12/20/19 12:15 ABG Carboxyhemoglobin 1.9 % (0.0-5.0) 12/20/19 12:15 ABG Methemoglobin 0.5 % (0.0-1.5) 12/20/19 12:15 Oxyhemoglobin 96.5 % (95.0-99.0) 12/20/19 12:15 FiO2 35 % 12/20/19 12:15 Sodium 137 mmol/L (137-145) 01/03/20 04:47 Potassium 4.1 mmol/L (3.6-5.0) 01/03/20 04:47 Chloride 101.9 mmol/L (98-107) 01/03/20 04:47 Carbon Dioxide 24 mmol/L (22-30) 01/03/20 04:47 Anion Gap 15 mmol/L 01/03/20 04:47 BUN 13 mg/dL (9-20) 01/03/20 04:47 Creatinine 0.7 mg/dL (0.8-1.5) L 01/03/20 04:47 Estimated GFR > 60 ml/min 01/03/20 04:47 BUN/Creatinine Ratio 19 % 01/03/20 04:47 Glucose 131 mg/dL (75-100) H 01/03/20 04:47 POC Glucose 134 (70-105) H 01/03/20 06:23 Lactic Acid 5.10 mmol/L (0.7-2.0) H* 12/19/19 15:55 Calcium 9.1 mg/dL (8.4-10.2) 01/03/20 04:47 Magnesium 2.00 mg/dL (1.7-2.3) 12/19/19 09:14 Total Bilirubin 0.20 mg/dL (0.1-1.2) 12/19/19 09:14 AST 13 units/L (5-40) 12/19/19 09:14 ALT 11 units/L (7-56) 12/19/19 09:14 Alkaline Phosphatase 85 units/L (35-129) 12/19/19 09:14 Ammonia 35.0 umol/L (25-60) 12/19/19 09:14 Total Protein 6.6 g/dL (6.3-8.2) 12/19/19 09:14 Albumin 3.4 g/dL (3.9-5) L 12/19/19 09:14 Albumin/Globulin Ratio 1.1 % 12/19/19 09:14 Lipase 49 units/L (13-60) 12/19/19 09:14 Urine Color Yellow (Yellow) 12/19/19 10:02 Urine Turbidity Slightly-cloudy (Clear) 12/19/19 10:02 Urine pH 5.0 (5.0-7.0) 12/19/19 10:02 Ur Specific [place] 1.024 (1.003-1.030) 12/19/19 10:02 Urine Protein 30 mg/dl mg/dL (Negative) 12/19/19 10:02 Urine Glucose (UA) 50 mg/dL (Negative) 12/19/19 10:02 Urine Ketones Neg mg/dL (Negative) 12/19/19 10:02 Urine Blood Neg (Negative) 12/19/19 10:02 Urine Nitrite Neg (Negative) 12/19/19 10:02 Urine Bilirubin Neg (Negative) 12/19/19 10:02 Urine Urobilinogen < 2.0 mg/dL (<2.0) 12/19/19 10:02 Ur Leukocyte Esterase Neg (Negative) 12/19/19 10:02 Urine WBC (Auto) 2.0 /HPF (0.0-6.0) 12/19/19 10:02 Urine RBC (Auto) 1.0 /HPF (0.0-6.0) 12/19/19 10:02 U Epithel Cells (Auto) < 1.0 /HPF (0-13.0) 12/19/19 10:02 Hyaline Casts 11 /LPF 12/19/19 10:02 Urine Mucus 2+ /HPF 12/19/19 10:02 Urine Sperm Few /HPF (QUALITY INTERN) 12/19/19 10:02 Vancomycin Trough 13.0 ug/mL (5.0-20.0) 12/27/19 20:46 Random Vancomycin 7.5 ug/mL (0-40.0) 12/21/19 23:02 Blood Type O POSITIVE 12/19/19 09:10 Antibody Screen Negative 12/19/19 09:10 Crossmatch See Detail 12/19/19 09:10 - Diagnostic Impressions Diagnostic Impressions: Echocardiogram 12/22/19 17:57 Transthoracic Echocardiogram Indication: R/O Endocarditis BP: 133/79 HR: 81 Conclusions *Global left ventricular systolic function is normal. *Mild concentric left ventricular hypertrophy is observed. *The estimated ejection fraction is 50-55%. *Abnormal left ventricular diastolic filling is observed, consistent with impaired relaxation. *The right ventricular global systolic function is mildly reduced. *There is no evidence of aortic regurgitation. *There is trace of mitral regurgitation. *There is trace tricuspid regurgitation. *The right ventricular systolic pressure is calculated at 38 mmHg. *There is trace pulmonic regurgitation. Findings Left Ventricle: The left ventricular chamber size is normal. Mild concentric left ventricular hypertrophy is observed. Global left ventricular systolic function is normal. The estimated ejection fraction is 50-55%. Abnormal left ventricular diastolic filling is observed, consistent with impaired relaxation. Left Atrium: The left atrial chamber size is normal. Right Ventricle: The right ventricular cavity size is normal. The right ventricular global systolic function is mildly reduced. Right Atrium: The right atrial cavity size is normal. Aortic Valve: The aortic valve is trileaflet. There is no evidence of aortic regurgitation. Mitral Valve: The mitral valve leaflets are mildly thickened. There is trace of mitral regurgitation. Tricuspid Valve: The tricuspid valve leaflets are normal. There is trace tricuspid regurgitation. The right ventricular systolic pressure is calculated at 38 mmHg. Pulmonic Valve: The pulmonic valve appears normal. There is trace pulmonic regurgitation. Pericardium: There is no pericardial effusion. Aorta: There is no dilatation of the ascending aorta. There is no dilatation of the aortic root. Venous: The inferior vena cava appears normal in size. There is a greater than 50% respiratory change in the inferior vena cava dimension. Measurements Chambers 2D Name Value Normal Range IVSd (2D) 1.33 cm (0.6 - 1.1) LVPWd (2D) 1.29 cm (0.6 - 1.1) LVIDd (2D) 3.1 cm (3.7 - 5.6) LVIDs (2D) 2.26 cm (2 - 3.8) LV FS (2D) 27.25 % - EF Teichholz (2D) 54.5 % - Ao root diameter (2D) 2.84 cm (2 - 3.7) Volumes/Mass Name Value Normal Range LA ESV SP 4CH (A/L) 20.15 ml - LA ESV SP 2CH (A/L) 33.14 ml - LA ESV BP (A/L) 28.63 ml - LA ESV BP (A/L) index 15.39 ml/m2 - LA ESV SP 4CH (MOD) 18.4 ml - LA ESV SP 2CH (MOD) 29.82 ml - LA ESV BP (MOD) 25.89 ml - LA ESV BP (MOD) index 13.92 ml/m2 - Diastolic/Systolic Function Name Value Normal Range MV E-wave Vmax 1.1 m/sec - MV deceleration time 171.63 msec - MV A-wave Vmax 1.18 m/sec - MV E:A ratio 0.94 ratio - Aortic Valve Name Value Normal Range AV Vmax 1.37 m/sec - AV VTI 26.97 cm - AV peak gradient 7.5 mmHg - AV mean gradient 3.79 mmHg - LVOT diameter 2.03 cm - LVOT Vmax 1.09 m/sec - LVOT VTI 23.3 cm - LVOT peak gradient 4.76 mmHg - LVOT mean gradient 2.45 mmHg - SV LVOT 75.15 ml - DARINEL (continuity Vmax) 2.57 cm2 - DARINEL (continuity VTI) 2.79 cm2 - Tricuspid Valve Name Value Normal Range TR Vmax 2.96 m/sec - TR peak gradient 35 mmHg - RAP 3 mmHg - RVSP 38 mmHg - IVC diameter 1.78 cm (1.2 - 2.3) Pulmonic Valve/Qp:Qs Name Value Normal Range PV Vmax 0.96 m/sec - PV peak gradient 3.68 mmHg - AL end-diastolic Vmax 1.42 m/sec - PV acceleration time 64.7 msec - NDUM: 12/24/19 1217 Amended Report Transthoracic Echocardiogram Indication: R/O Endocarditis BP: 133/79 HR: 81 Conclusions *Global left ventricular systolic function is normal. *Mild concentric left ventricular hypertrophy is observed. *The estimated ejection fraction is 50-55%. *Abnormal left ventricular diastolic filling is observed, consistent with impaired relaxation. *The right ventricular global systolic function is mildly reduced. *There is no evidence of aortic regurgitation. *There is trace of mitral regurgitation. *There is trace tricuspid regurgitation. *The right ventricular systolic pressure is calculated at 38 mmHg. *There is trace pulmonic regurgitation. *No obvious endocardtis noted on mitral and aortic and tricuspid valve, if clinically indicated suggest JUAN Findings Left Ventricle: The left ventricular chamber size is normal. Mild concentric left ventricular hypertrophy is observed. Global left ventricular systolic function is normal. The estimated ejection fraction is 50-55%. Abnormal left ventricular diastolic filling is observed, consistent with impaired relaxation. Left Atrium: The left atrial chamber size is normal. Right Ventricle: The right ventricular cavity size is normal. The right ventricular global systolic function is mildly reduced. Right Atrium: The right atrial cavity size is normal. Aortic Valve: The aortic valve is trileaflet. There is no evidence of aortic regurgitation. Mitral Valve: The mitral valve leaflets are mildly thickened. There is trace of mitral regurgitation. Tricuspid Valve: The tricuspid valve leaflets are normal. There is trace tricuspid regurgitation. The right ventricular systolic pressure is calculated at 38 mmHg. Pulmonic Valve: The pulmonic valve appears normal. There is trace pulmonic regurgitation. Pericardium: There is no pericardial effusion. Aorta: There is no dilatation of the ascending aorta. There is no dilatation of the aortic root. Venous: The inferior vena cava appears normal in size. There is a greater than 50% respiratory change in the inferior vena cava dimension. Measurements Chambers 2D Name Value Normal Range IVSd (2D) 1.33 cm (0.6 - 1.1) LVPWd (2D) 1.29 cm (0.6 - 1.1) LVIDd (2D) 3.1 cm (3.7 - 5.6) LVIDs (2D) 2.26 cm (2 - 3.8) LV FS (2D) 27.25 % - EF Teichholz (2D) 54.5 % - Ao root diameter (2D) 2.84 cm (2 - 3.7) Volumes/Mass Name Value Normal Range LA ESV SP 4CH (A/L) 20.15 ml - LA ESV SP 2CH (A/L) 33.14 ml - LA ESV BP (A/L) 28.63 ml - LA ESV BP (A/L) index 15.39 ml/m2 - LA ESV SP 4CH (MOD) 18.4 ml - LA ESV SP 2CH (MOD) 29.82 ml - LA ESV BP (MOD) 25.89 ml - LA ESV BP (MOD) index 13.92 ml/m2 - Diastolic/Systolic Function Name Value Normal Range MV E-wave Vmax 1.1 m/sec - MV deceleration time 171.63 msec - MV A-wave Vmax 1.18 m/sec - MV E:A ratio 0.94 ratio - Aortic Valve Name Value Normal Range AV Vmax 1.37 m/sec - AV VTI 26.97 cm - AV peak gradient 7.5 mmHg - AV mean gradient 3.79 mmHg - LVOT diameter 2.03 cm - LVOT Vmax 1.09 m/sec - LVOT VTI 23.3 cm - LVOT peak gradient 4.76 mmHg - LVOT mean gradient 2.45 mmHg - SV LVOT 75.15 ml - DARINEL (continuity Vmax) 2.57 cm2 - DARINEL (continuity VTI) 2.79 cm2 - Tricuspid Valve Name Value Normal Range TR Vmax 2.96 m/sec - TR peak gradient 35 mmHg - RAP 3 mmHg - RVSP 38 mmHg - IVC diameter 1.78 cm (1.2 - 2.3) Pulmonic Valve/Qp:Qs Name Value Normal Range PV Vmax 0.96 m/sec - PV peak gradient 3.68 mmHg - AL end-diastolic Vmax 1.42 m/sec - PV acceleration time 64.7 msec - [place]/IV: Voiding Method Diaper IV Catheter Type [Left Forearm INT / Saline Lock ] IV Catheter Type [Left Triple Lumen Cath Subclavian] IV Catheter Type [Right INT / Saline Lock Antecubital] Active Medications - Current Medications Current Medications: Generic Name Dose Route Start Last Admin Trade Name Freq PRN Reason Stop Dose Admin Acetaminophen 650 mg 12/19/19 12:15 12/28/19 16:09 Tylenol PO 650 mg Q4H PRN Administration Fever >101 Lipase/Protease/Amylase 1 each 12/22/19 10:05 Pancreaze 10,500 Unit FEEDTUBE PRN PRN For Clogged Feeding Tube Ascorbic Acid 500 mg 12/19/19 13:00 01/02/20 21:56 Vitamin C PO 500 mg Q12HR NIKOLAS Administration Atorvastatin Calcium 20 mg 12/19/19 22:00 01/02/20 21:57 Lipitor PO 20 mg QHS NIKOLAS Administration Bismuth Subsalicylate 524 mg 12/19/19 12:15 Pepto Bismol PO Q6H PRN Diarrhea Citalopram Hydrobromide 30 mg 12/19/19 14:00 01/02/20 09:38 Celexa PO 30 mg DAILY NIKOLAS Administration Ferrous Sulfate 308 mg 12/20/19 22:00 01/02/20 21:57 Ferrous Sulfate FEEDTUBE 308 mg BID NIKOLAS Administration Hydrophilic Ointment 1 applic 12/19/19 10:35 Vaseline Lip Therapy TP Q2HR PRN Dry Lips Ceftriaxone Sodium 2 gm in 100 mls @ 200 mls/hr 12/28/19 10:00 01/02/20 09:37 Rocephin/Ns 2 Gm/100 Ml IV 01/06/20 10:29 200 mls/hr Q24HR NIKOLAS Administration Lansoprazole 30 mg 12/23/19 10:00 01/02/20 21:56 Prevacid Solutab FEEDTUBE 30 mg BID NIKOLAS Administration Latanoprost 1 drops 12/19/19 22:00 01/02/20 21:56 Latanoprost 0.005% OD 1 drops QHS NIKOLAS Administration Lisinopril 10 mg 12/19/19 13:00 01/02/20 09:43 Zestril PO 10 mg QDAY NIKOLAS Administration Magnesium Oxide 400 mg 12/20/19 10:00 01/02/20 09:37 Mag-Ox PO 400 mg QDAY NIKOLAS Administration Multi-Ingred Cream/Lotion/Oil/Oint 1 applic 12/19/19 10:35 Artificial Tears Ophth Oint OU Q4HR PRN Dry Eye(s) Quetiapine Fumarate 50 mg 12/19/19 14:00 01/02/20 21:56 Seroquel PO 50 mg TID NIKOLAS Administration Simple Syrup 15 ml 12/22/19 09:51 Simple Syrup FEEDTUBE PRN PRN Hypoglycemia Simple Syrup 30 ml 12/22/19 10:05 Simple Syrup FEEDTUBE PRN PRN Hypoglycemia Sodium Bicarbonate 325 mg 12/22/19 10:05 Sodium Bicarbonate FEEDTUBE PRN PRN For Clogged Feeding Tube Sodium Chloride 10 ml 12/19/19 22:00 01/02/20 21:57 Sodium Chloride Flush Syringe 10 Ml IV 10 ml BID NIKOLAS Administration Sodium Chloride 10 ml 12/19/19 12:13 Sodium Chloride Flush Syringe 10 Ml IV PRN PRN LINE FLUSH Thiamine HCl 100 mg 12/20/19 10:00 01/02/20 09:37 Vitamin B-1 PO 100 mg DAILY NIKOLAS Administration Timolol Maleate 1 drops 12/19/19 22:00 01/02/20 21:55 Timoptic OU 1 drops BID NIKOLAS Administration Nutrition/Malnutrition Assess - Dietary Evaluation Nutrition/Malnutrition Findings: Nutrition Notes Start: 12/20/19 08:53 Freq: Status: Active Protocol: Document 12/31/19 11:45 LM (Rec: 12/31/19 11:54 LM [id number]) Nutrition Notes Initial or Follow up Reassessment Current Diagnosis Acute Kidney Injury,COPD, Diabetes,Hypertension, Respiratory Failure,Stroke Other Pertinent Diagnosis GI bleed, encephalopathy, debility Current Diet Mech soft + Cyclic TF Glucerna 1.2 at 65ml/hr Labs/Tests POC glu 156 Pertinent Medications Mag-Ox Height 5 ft 6 in Weight 74.7 kg [place] Body Weight (kg) 64.54 BMI 26.6 Weight Status Overweight Subjective/Other Information Per RN, pt has been eating. Pt ate a quarter of breakfast this AM and had 50% intakes yesterday. Pt tolerating Cylic TF. Percent of energy/protein needs met: 96%/100% (38% of meals + cyclic TF Burn Absent Trauma Absent GI Symptoms Other Current % PO Negligible Minimum of two criteria No physical signs of malnutrition #1 Nutrition Diagnosis Inadequate oral intake As Evidenced by Signs and Symptoms Pt's diet advanced to mech soft with cyclic TF Diagnosis Progress(for reassessment Improved documentation) Is patient on ventilator? No Is Patient Ambulatory and/or Out of Bed No REE-([place]-[facility] Jeor-confined to bed) [phone] [facility]culation [facility] Additional Notes Protein: 60-90g (0.8-1.2g/kg) Fluid: 1 ml/kcal Nutrition Intervention Change Diet Order: Mechanical soft with cyclic TF Nutrition Support: Cyclic TF from 7 PM to 7 AM ( 12 hr) Glucerna 1.2 at 65 ml/ hr Flush 50 ml q4h Kcal 936 Protein (gm) 47 Fluid (mL) 628 Goal #1 TF tolerance Goal #2 Meet at least 75% of energy and protein needs via TF and mech soft diet Anticipated Discharge Needs: TF and [facility] soft diet Follow-Up By: 01/03/20 Additional Comments F/U for intakes, TF tolerance
[2020-01-03] MEDS: FERROUS SULFATE 308 MG (62mg Elemental Iron) / 7 ML ELIXIR FEEDTUBE SCH ×2 (10:21→22:12)
[2020-01-03] MEDS: ASCORBIC ACID 500 MG TAB PO SCH ×2 (10:22→22:11)
[2020-01-03] MEDS: cefTRIAXone/NS 2 GM/100 ML 2 GM/100 ML BAG IV SCH (10:22)
[2020-01-03] MEDS: THIAMINE 100 MG TAB PO SCH (10:23)
[2020-01-03] MEDS: LANSOPRAZOLE 30 MG SOLUTAB FEEDTUBE SCH ×2 (10:23→22:13)
[2020-01-03] MEDS: LISINOPRIL 10 MG TAB PO SCH (10:23)
[2020-01-03] MEDS: MAGNESIUM OXIDE 400 MG TAB PO SCH (10:23)
[2020-01-03] MEDS: CITALOPRAM 10 MG TAB PO SCH (10:24)
[2020-01-03] MEDS: TIMOLOL 0.5% OPHTH SOLN 5 ML OU SCH ×2 (10:25→22:14)
[2020-01-03 17:19] LABS: Hematocrit 28.3 % (35.5-45.6); Hemoglobin 8.9 gm/dl (11.8-15.2); Mean Corpuscular HGB Conc 32 % (32-34); Mean Corpuscular Volume 78 fl (84-94); Platelet Count 466 K/mm3 (140-440); Red Blood Count 3.63 M/mm3 (3.65-5.03); Red Cell Distribution Width 19.3 % (13.2-15.2)
[2020-01-03 17:42] LABS: BUN/Creatinine Ratio 18; Blood Urea Nitrogen 11 mg/dL (9-20); Calcium 9.1 mg/dL (8.4-10.2); Hemolysis Index 9
[2020-01-03] MEDS: LATANOPROST 0.005% OPHTH SOLN 2.5 ML OD SCH (22:14)
[2020-01-04] MEDS: QUEtiapine 25 MG TAB PO SCH ×3 (08:00→21:32)
[2020-01-04] MEDS: THIAMINE 100 MG TAB PO SCH (09:57)
[2020-01-04] MEDS: LANSOPRAZOLE 30 MG SOLUTAB FEEDTUBE SCH ×2 (09:57→21:32)
[2020-01-04] MEDS: MAGNESIUM OXIDE 400 MG TAB PO SCH (09:57)
[2020-01-04] MEDS: FERROUS SULFATE 308 MG (62mg Elemental Iron) / 7 ML ELIXIR FEEDTUBE SCH ×2 (09:57→21:32)
[2020-01-04] MEDS: CITALOPRAM 10 MG TAB PO SCH (09:58)
[2020-01-04] MEDS: LISINOPRIL 10 MG TAB PO SCH (09:58)
[2020-01-04] MEDS: TIMOLOL 0.5% OPHTH SOLN 5 ML OU SCH ×2 (09:59→21:34)
[2020-01-04] MEDS: cefTRIAXone/NS 2 GM/100 ML 2 GM/100 ML BAG IV SCH (09:59)
[2020-01-04] MEDS: ASCORBIC ACID 500 MG TAB PO SCH ×2 (10:00→21:32)
--- NOTE | 2020-01-04 11:37 | Progress Note ---
Assessment and Plan Acute hypoxemic respiratory failure s/p MVS Acute upper GI bleed s/p EGD Oropharyngeal dysphagia s/p PEG Severe Sepsis with Shock Strep anginosus bacteremia: Diabetes mellitus type 2 Hypertension Metabolic acidosis/lactic acidosis Continue all supportive care as outlined Continue aspiration precautions Enteric nutrition via PEG COVID-19 test negative Antibiotics to complete course Discharge to adjunct faculty for medical terminology facility - supplemental oxygen as needed to keep O2 sat's > 90% - prn bronchodilators with pulmonary hygiene per RT - mobility protocol, off loading, and skin assessment per protocol for pressure ulcer prevention - continue accuchecks with glycemic control per SSI for target BG < 180 mg/dl - GI & VTE prophylaxis with PPI & SCD's - Flu & pneumovax addressed per protocol - continue other care per attending / other consultants Subjective Date of service: 01/04/20 Principal diagnosis: Ac upper GI bleed; Shock; Ac hypoxemic resp failure; DM II; H/O HTN Interval history: Patient is seen today for: Acute upper GI bleed; Severe Sepsis with Shock; Acute hypoxemic respiratory failure s/p MVS; DM II; HTN; Metabolic acidosis/lactic acidosis Seen and examined at bedside; 24hour events reviewed; nursing and respiratory care staff consulted; no adverse overnight events reported to me; resting peacefully in bed; no gross G.I. bleeding; no emesis or overt aspiration, non- verbal; more awake, off supplemental oxygen 01/02/2020 Awaiting COVID-19 testing for discharge planning. On IV Ceftriaxone to complete course on 01/16/2020 01/03/2020 -No new issue overnight. Awaiting COVID-19 test results for discharge planning 01/04/2020 -COVID 19 NEGATIVE Objective Vital Signs - 12hr 01/04/20 03:53 Temperature 97.7 F Pulse Rate 91 H Respiratory 18 Rate Blood Pressure 112/75 O2 Sat by Pulse 97 Oximetry Constitutional: no acute distress Eyes: non-icteric ENT: oropharynx moist Neck: supple, no lymphadenopathy, no JVD Effort: normal Ascultation: Bilateral: diminished breath sounds, rhonchi Percussion: Bilateral: not dull Cardiovascular: regular rate and rhythm Gastrointestinal: normoactive bowel sounds, soft, non-tender, non-distended Integumentary: rash Extremities: no cyanosis, no edema, pulses normal Neurologic: pupils equal and round, other (mumbles ) Psychiatric: other (affect flat) CBC and BMP: 01/03/20 16:56 01/03/20 16:56 ABG, PT/INR, D-dimer: ABG ABG pH 7.432 pH Units (7.350-7.450) 12/20/19 12:15 ABG pCO2 36.0 mm Hg 12/20/19 12:15 ABG pO2 150.8 mm Hg (80.0-90.0) H 12/20/19 12:15 ABG O2 Saturation 98.9 % (95.0-99.0) 12/20/19 12:15 PT/INR, D-dimer PT 15.3 Sec. (12.2-14.9) H 12/19/19 09:14 INR 1.19 (0.87-1.13) H 12/19/19 09:14 Abnormal lab findings: Abnormal Labs 12/19/19 12/19/19 12/19/19 09:10 09:14 09:14 WBC 12.1 H RBC Hgb 10.0 L Hct 32.3 L MCV 81 L MCH 25 L MCHC 31 L RDW 17.7 H Plt Count Lymph % (Auto) [place] % (Auto) [place] # 0.9 H Seg Neutrophils % 78.2 H Seg Neutrophils # 9.5 H PT 15.3 H INR 1.19 H ABG pH ABG pO2 ABG HCO3 ABG O2 Saturation ABG Base Excess ABG Hemoglobin Sodium Potassium Chloride Carbon Dioxide BUN Creatinine Glucose POC Glucose Lactic Acid Calcium Albumin Vancomycin Trough Crossmatch See Detail 12/19/19 12/19/19 12/19/19 09:14 09:14 10:05 WBC RBC Hgb Hct MCV MCH MCHC RDW Plt Count Lymph % (Auto) [place] % (Auto) [place] # Seg Neutrophils % Seg Neutrophils # PT INR ABG pH ABG pO2 ABG HCO3 ABG O2 Saturation ABG Base Excess ABG Hemoglobin Sodium Potassium Chloride Carbon Dioxide 20 L BUN 55 H Creatinine Glucose 222 H POC Glucose 212 H Lactic Acid 3.10 H* Calcium Albumin 3.4 L Vancomycin Trough Crossmatch 12/19/19 12/19/19 12/19/19 10:30 12:30 15:55 WBC RBC Hgb Hct MCV MCH MCHC RDW Plt Count Lymph % (Auto) [place] % (Auto) [place] # Seg Neutrophils % Seg Neutrophils # PT INR ABG pH 7.277 L ABG pO2 195.1 H ABG HCO3 19.2 L ABG O2 Saturation 99.2 H ABG Base Excess -7.1 L ABG Hemoglobin 9.4 L Sodium Potassium Chloride Carbon Dioxide BUN Creatinine Glucose POC Glucose Lactic Acid 2.80 H* 5.10 H* Calcium Albumin Vancomycin Trough Crossmatch 12/20/19 12/20/19 12/20/19 04:20 04:59 04:59 WBC 11.3 H RBC 3.21 L Hgb 8.0 L Hct 26.0 L D MCV 81 L MCH 25 L MCHC 31 L RDW 17.7 H Plt Count Lymph % (Auto) 12.2 L [place] % (Auto) 11.1 H [place] # 1.2 H Seg Neutrophils % 76.5 H Seg Neutrophils # 8.6 H PT INR ABG pH ABG pO2 139.7 H ABG HCO3 ABG O2 Saturation ABG Base Excess ABG Hemoglobin 9.2 L Sodium 147 H Potassium Chloride 113.7 H Carbon Dioxide BUN 29 H Creatinine 0.6 L D Glucose 172 H POC Glucose Lactic Acid Calcium Albumin Vancomycin Trough Crossmatch 12/20/19 12/21/19 12/21/19 12:15 04:38 04:38 WBC RBC 2.55 L Hgb 6.5 L Hct 20.9 L MCV 82 L MCH 26 L MCHC 31 L RDW 18.1 H Plt Count Lymph % (Auto) [place] % (Auto) 10.8 H [place] # 0.9 H Seg Neutrophils % 70.8 H Seg Neutrophils # PT INR ABG pH ABG pO2 150.8 H ABG HCO3 ABG O2 Saturation ABG Base Excess ABG Hemoglobin 5.5 L Sodium 149 H Potassium 3.5 L Chloride 114.9 H Carbon Dioxide BUN 21 H Creatinine 0.5 L Glucose 114 H POC Glucose Lactic Acid Calcium Albumin Vancomycin Trough Crossmatch 12/21/19 12/22/19 12/22/19 23:02 10:34 10:34 WBC RBC 3.24 L Hgb 7.7 L 8.4 L Hct 24.8 L 27.0 L MCV 83 L MCH 26 L MCHC 31 L RDW 17.7 H Plt Count Lymph % (Auto) [place] % (Auto) [place] # Seg Neutrophils % Seg Neutrophils # PT INR ABG pH ABG pO2 ABG HCO3 ABG O2 Saturation ABG Base Excess ABG Hemoglobin Sodium 147 H Potassium Chloride 112.3 H Carbon Dioxide 20 L BUN Creatinine 0.5 L Glucose 102 H POC Glucose Lactic Acid Calcium Albumin Vancomycin Trough Crossmatch 12/22/19 12/22/19 12/22/19 11:58 18:15 23:47 WBC RBC Hgb Hct MCV MCH MCHC RDW Plt Count Lymph % (Auto) [place] % (Auto) [place] # Seg Neutrophils % Seg Neutrophils # PT INR ABG pH ABG pO2 ABG HCO3 ABG O2 Saturation ABG Base Excess ABG Hemoglobin Sodium Potassium Chloride Carbon Dioxide BUN Creatinine Glucose POC Glucose 126 H 114 H 121 H Lactic Acid Calcium Albumin Vancomycin Trough Crossmatch 12/23/19 12/23/19 12/23/19 05:46 06:38 06:38 WBC RBC 2.94 L Hgb 7.6 L Hct 23.8 L MCV 81 L MCH 26 L MCHC RDW 17.0 H Plt Count Lymph % (Auto) [place] % (Auto) [place] # Seg Neutrophils % Seg Neutrophils # PT INR ABG pH ABG pO2 ABG HCO3 ABG O2 Saturation ABG Base Excess ABG Hemoglobin Sodium Potassium 3.3 L Chloride 107.5 H Carbon Dioxide BUN Creatinine 0.4 L Glucose 132 H POC Glucose 124 H Lactic Acid Calcium 8.1 L Albumin Vancomycin Trough Crossmatch 12/23/19 12/23/19 12/24/19 15:54 20:50 00:06 WBC RBC Hgb Hct MCV MCH MCHC RDW Plt Count Lymph % (Auto) [place] % (Auto) [place] # Seg Neutrophils % Seg Neutrophils # PT INR ABG pH ABG pO2 ABG HCO3 ABG O2 Saturation ABG Base Excess ABG Hemoglobin Sodium Potassium Chloride Carbon Dioxide BUN Creatinine Glucose POC Glucose 150 H 135 H Lactic Acid Calcium Albumin Vancomycin Trough 21.4 H Crossmatch 12/24/19 12/24/19 12/25/19 05:34 18:28 05:31 WBC RBC Hgb Hct MCV MCH MCHC RDW Plt Count Lymph % (Auto) [place] % (Auto) [place] # Seg Neutrophils % Seg Neutrophils # PT INR ABG pH ABG pO2 ABG HCO3 ABG O2 Saturation ABG Base Excess ABG Hemoglobin Sodium Potassium Chloride Carbon Dioxide BUN Creatinine Glucose POC Glucose 179 H 156 H 179 H Lactic Acid Calcium Albumin Vancomycin Trough Crossmatch 12/25/19 12/26/19 12/26/19 17:50 05:00 05:00 WBC 16.9 H RBC 2.91 L Hgb 7.3 L Hct 22.9 L MCV 79 L MCH 25 L MCHC RDW 17.7 H Plt Count Lymph % (Auto) [place] % (Auto) [place] # Seg Neutrophils % Seg Neutrophils # PT INR ABG pH ABG pO2 ABG HCO3 ABG O2 Saturation ABG Base Excess ABG Hemoglobin Sodium 135 L D Potassium 3.1 L Chloride 96.6 L Carbon Dioxide BUN 7 L Creatinine 0.5 L Glucose 180 H POC Glucose 211 H Lactic Acid Calcium 8.0 L Albumin Vancomycin Trough Crossmatch 12/26/19 12/26/19 12/27/19 16:57 22:42 04:32 WBC 14.6 H RBC 2.95 L Hgb 7.4 L Hct 23.4 L MCV 79 L MCH 25 L MCHC RDW 18.4 H Plt Count Lymph % (Auto) [place] % (Auto) [place] # Seg Neutrophils % Seg Neutrophils # PT INR ABG pH ABG pO2 ABG HCO3 ABG O2 Saturation ABG Base Excess ABG Hemoglobin Sodium Potassium Chloride Carbon Dioxide BUN Creatinine Glucose POC Glucose 117 H 174 H Lactic Acid Calcium Albumin Vancomycin Trough Crossmatch 12/27/19 12/27/19 12/29/19 04:32 05:59 06:48 WBC RBC Hgb Hct MCV MCH MCHC RDW Plt Count Lymph % (Auto) [place] % (Auto) [place] # Seg Neutrophils % Seg Neutrophils # PT INR ABG pH ABG pO2 ABG HCO3 ABG O2 Saturation ABG Base Excess ABG Hemoglobin Sodium Potassium Chloride Carbon Dioxide BUN Creatinine 0.7 L Glucose 189 H POC Glucose 183 H 212 H Lactic Acid Calcium Albumin Vancomycin Trough Crossmatch 12/29/19 12/29/19 12/30/19 11:23 17:44 00:23 WBC RBC Hgb Hct MCV MCH MCHC RDW Plt Count Lymph % (Auto) [place] % (Auto) [place] # Seg Neutrophils % Seg Neutrophils # PT INR ABG pH ABG pO2 ABG HCO3 ABG O2 Saturation ABG Base Excess ABG Hemoglobin Sodium Potassium Chloride Carbon Dioxide BUN Creatinine Glucose POC Glucose 170 H 168 H 145 H Lactic Acid Calcium Albumin Vancomycin Trough Crossmatch 12/30/19 01/02/20 01/03/20 06:26 23:26 04:47 WBC RBC 3.60 L Hgb 9.0 L Hct 28.1 L MCV 78 L MCH 25 L MCHC RDW 19.4 H Plt Count 465 H Lymph % (Auto) [place] % (Auto) [place] # Seg Neutrophils % Seg Neutrophils # PT INR ABG pH ABG pO2 ABG HCO3 ABG O2 Saturation ABG Base Excess ABG Hemoglobin Sodium Potassium Chloride Carbon Dioxide BUN Creatinine Glucose POC Glucose 156 H 139 H Lactic Acid Calcium Albumin Vancomycin Trough Crossmatch 01/03/20 01/03/20 01/03/20 04:47 06:23 11:38 WBC RBC Hgb Hct MCV MCH MCHC RDW Plt Count Lymph % (Auto) [place] % (Auto) [place] # Seg Neutrophils % Seg Neutrophils # PT INR ABG pH ABG pO2 ABG HCO3 ABG O2 Saturation ABG Base Excess ABG Hemoglobin Sodium Potassium Chloride Carbon Dioxide BUN Creatinine 0.7 L Glucose 131 H POC Glucose 134 H 131 H Lactic Acid Calcium Albumin Vancomycin Trough Crossmatch 01/03/20 01/03/20 01/03/20 16:55 16:56 16:56 WBC RBC 3.63 L Hgb 8.9 L Hct 28.3 L MCV 78 L MCH 25 L MCHC RDW 19.3 H Plt Count 466 H Lymph % (Auto) [place] % (Auto) [place] # Seg Neutrophils % Seg Neutrophils # PT INR ABG pH ABG pO2 ABG HCO3 ABG O2 Saturation ABG Base Excess ABG Hemoglobin Sodium 136 L Potassium Chloride Carbon Dioxide 21 L BUN Creatinine 0.6 L Glucose 118 H POC Glucose 119 H Lactic Acid Calcium Albumin Vancomycin Trough Crossmatch 01/04/20 01/04/20 00:09 05:43 WBC RBC Hgb Hct MCV MCH MCHC RDW Plt Count Lymph % (Auto) [place] % (Auto) [place] # Seg Neutrophils % Seg Neutrophils # PT INR ABG pH ABG pO2 ABG HCO3 ABG O2 Saturation ABG Base Excess ABG Hemoglobin Sodium Potassium Chloride Carbon Dioxide BUN Creatinine Glucose POC Glucose 123 H 130 H Lactic Acid Calcium Albumin Vancomycin Trough Crossmatch Allied health notes reviewed: nursing
--- NOTE | 2020-01-04 12:04 | Discharge Summary ---
Providers - Providers Date of Admission: 12/19/19 12:13 Date of discharge: 01/04/20 Attending physician: MARIETTA REECE 12/19/19 10:36 Consult to Dietitian/Nutrition [CONS] Routine Physician Instructions: Reason For Exam: Reason for Consult: Evaluate nutritional intake 12/19/19 10:53 Consult to Physician [CONS] Routine Comment: DR KENT SPNate W/DR RUFF @[id number] Consulting Provider: TATE RUFF Physician Instructions: Reason For Exam: upper gi bleed 12/19/19 12:13 Consult to Physician [CONS] Routine Comment: Consulting Provider: KELLY GAVIN Physician Instructions: Reason For Exam: respiratory failure on vent 12/21/19 13:29 Consult to Physician [CONS] Routine Comment: Consulting Provider: DRAKE ROB Physician Instructions: Reason For Exam: Beta hemolytic strep sepsis 12/22/19 09:51 Consult to Dietitian/Nutrition [CONS] Routine Physician Instructions: Assess nutrtn needs, initiate, modify, manage TF Reason For Exam: Reason for Consult: Write/Manage Tube Feeding Reason for Consult: Write/Manage Tube Feeding 12/26/19 22:03 Consult to Case Management [CONS] Stat Services Needed at Discharge: Other Notified:: mattress and foundation sewer Additional Physician Instructions: OPAT Diagnose: Strep bacteremia penicillin allergy Infuse ceftriaxone 2gm IV qday total 14 days till 01/06/2020. Labs: CBC, creat, CRP, AST, ALT weekly Juli Colindres MD 12/27/19 16:59 Speech Therapy Evaluation and Treat [CONS] Routine Reason For Exam: pt can eat Primary care physician: RAISA POE Hospitalization Condition: Fair Hospital course: 54 YO Male [facility] Facility Resident at [facility] with COPD, DM, CVA, GERD, HTN, Encephalopathy, Debility presented to ED for evaluation. Patient is encephalopathic, nonverbal and unable to provide history. At the time of exam in ED the patient is intubated, and on ventilatory support. Patient history taken from ED staff, EMS staff and [facility] facility staff. As per staff the patient was observed to have projectile coffee-ground emesis as well as passing bright red blood from his rectum on day of presentation. EMS was notified and upon arrival the patient was found to be in distress with evidence of upper and lower GI bleed and subsequently transported to [facility] for further evaluation and care. Patient seen and evaluated in the emergency department. Patient found to be hypotensive with blood pressure of 70/42 with active bleeding from the GI tract. Patient also was found to be in respiratory distress and was intubated for acute hypoxemic respiratory failure. GI team consult placed in ED. Patient admitted to ICU for medical stabilization due to high risk of cardiac and hematologic decompensation. EGD done same day 12/19/19 revealed gastric ulcer. Initial hgb was 10.0 but went down to 6.5 from blood loss so was transfused 1 unit PRBC. Of note, patient was put on contact and droplet isolation to r/o Covid -19 infection because he was in room in ED with patient that tested to be covid -19 positive. i happened in one of large rooms in which patient only by curtains. The SNF declined to take him back until Test come back negative. After a prolonged stay, just waiting for result, eventually came back negative for Covid-19 so discharged to SNF 01/04/2020. Negative for Covid-19 Acute upper GI bleed. Patient underwent endoscopy which revealed esophagitis in the lower third of the esophagus. There was a cratered, clean based ulcer in the incisura of the stomach. Treated with PPI. Gastric ulcer seen on EGD Acute blood loss anemia s/p 1 unit PRBC transfused Acute hypoxic respiratory failure. was treated with supplemental Oxygen to maintain sats Diabetes mellitus type 2. Continue Accu-Cheks and sliding scale insulin. Hypertension. Patient actually hypotensive given the bleed. Metabolic acidosis/lactic acidosis. Etiology likely secondary to hypotension/hypoperfusion from GI bleed. Patient with no obvious signs of infection. Patient remains asymptomatic, however his facility won't take him back without negative test. Agree with testing for now, though his risk of infection is extremely low. -anticipate to d/c on ceftriaxone 2 g IV q day total 14 days till 01/06/2020. Discussed w block and case maker 12/29/2019. Patient still with low-grade fever yesterday of 100.5. Patient currently satting 98% on room air. Patient continues to remain asymptomatic, however his facility won't take him back without negative test. Await for negative COVID-19 test. 12/30/2019. Patient still with low-grade fever 100.5. Patient requiring no oxy gen. Patient continues to remain asymptomatic, however his facility won't take him back without negative test. Await for negative COVID-19 test. 12/31/19 Patient requiring no oxygen. Patient continues to remain asymptomatic, however his facility won't take him back without negative test. Await for negative COVID-19 test. 01/01/20 Patient requiring no oxygen. Patient continues to remain asymptomatic, however his facility won't take him back without negative test. Await for negative COVID-19 test. 01/02/2020 Patient requiring no oxygen. Patient continues to remain asymptomatic, however his facility won't take him back without negative test. Await for negative COVID-19 test. 01/03/2020 Patient requiring no oxygen. Patient continues to remain asymptomatic, however his facility won't take him back without negative test. Await for negative COVID-19 test. A new test will be sent to [facility] today Total time spent on discharge, 35 mins Disposition: [id number] [facility] CERT Core Measure Documentation - Palliative Care Palliative Care/ Comfort Measures: Not Applicable - Core Measures Any of the following diagnoses?: none Exam - Constitutional Vitals: Temp Pulse Resp BP Pulse Ox 99.1 F 89 20 109/78 99 01/04/20 11:22 01/04/20 11:22 01/04/20 11:22 01/04/20 11:22 01/04/20 11:22 Plan Activity: advance as tolerated Diet: other (Tube feeding. Also mechanical soft diet as tolerated.) Plan of Treatment: 1.Follow up with Physician at [facility] in 2-3 days. 2.Follow up with Dr. Tate Ruff [facility] in 1-2 weeks. Follow up with: RAISA POE MD [Primary Care Provider] - 3-5 Days Prescriptions: Lansoprazole Solutab [Prevacid Solutab] 30 mg FEEDTUBE BID 30 Days #60 tab.[email or web address]
[2020-01-04] MEDS: LATANOPROST 0.005% OPHTH SOLN 2.5 ML OD SCH (21:33)
[2020-01-05 05:33] VITALS: BP 120/83
== END 2020-01-05 07:12 | DRG 871 ==
LOC: ED 07:59 → CC1 12:13 → 3A 12-21 13:28 → 4A 12-22 18:32 → 3A 12-24 16:44
PROVIDERS: ADMIT Internal Medicine; ATTEND Internal Medicine
PROC: 4A033R1 Measurement of Arterial Saturation, Peripheral, Percutaneous Approach (ICD-10-PCS; principal; 2019-12-19)
PROC: 5A1935Z Respiratory Ventilation, Less than 24 Consecutive Hours (ICD-10-PCS; 2019-12-19)
PROC: 0BH17EZ Insertion of Endotracheal Airway into Trachea, Via Natural or Artificial Opening (ICD-10-PCS; 2019-12-19)
PROC: 05H633Z Insertion of Infusion Device into Left Subclavian Vein, Percutaneous Approach (ICD-10-PCS; 2019-12-19)
PROC: 0DJ08ZZ Inspection of Upper Intestinal Tract, Via Natural or Artificial Opening Endoscopic (ICD-10-PCS; 2019-12-19)
PROC: 30233N1 Transfusion of Nonautologous Red Blood Cells into Peripheral Vein, Percutaneous Approach (ICD-10-PCS; 2019-12-21)
DX: A40.8 Other streptococcal sepsis (principal); J96.01 Acute respiratory failure with hypoxia; K25.0 Acute gastric ulcer with hemorrhage; G93.41 Metabolic encephalopathy; E87.2 Acidosis; E11.9 Type 2 diabetes mellitus without complications; K21.9 Gastro-esophageal reflux disease without esophagitis; J44.9 Chronic obstructive pulmonary disease, unspecified; N40.0 Benign prostatic hyperplasia without lower urinary tract symptoms; I95.9 Hypotension, unspecified; D64.9 Anemia, unspecified; K20.9 Esophagitis, unspecified; R13.12 Dysphagia, oropharyngeal phase; R65.20 Severe sepsis without septic shock; J04.10 Acute tracheitis without obstruction; D62 Acute posthemorrhagic anemia; Z88.0 Allergy status to penicillin; Z79.4 Long term (current) use of insulin; Z87.891 Personal history of nicotine dependence; I69.354 Hemiplegia and hemiparesis following cerebral infarction affecting left non-dominant side; Z93.1 Gastrostomy status; Z03.818 Encounter for observation for suspected exposure to other biological agents ruled out
CPT/HCPCS: 31500; 36415; 36600; 71045; 80048; 80053; 80202; 81001; 82140; 82803; 82962; 83690; 83735; 85014; 85018; 85025; 85027; 85610; 85730; 86850; 86900; 86901; 86920; 87040; 87070; 87076; 87186; 87205; 93005; 93010; 93306; 94002; 94003; 94760; 96365; 96366; 96375; G0378; A6250; A9270-GY; C9113; J0330; J0696; J1940; J1956; J2060; J2370; J2704; J2765; J3370; J3480; J7030; J7040; J7050; J7070; P9016

== ENCOUNTER 2020-06-02 14:15 | Emergency (ER) | payer MEDICAID ==
--- NOTE | 2020-06-02 15:55 | Emergency Department Report ---
HPI - General Chief Complaint: Fall Time Seen by Provider: 06/02/20 14:38 - HPI HPI: This is a 54-year-old -[place] male presents to the emergency department from his [facility] custodial after the patient allegedly had a fall around 2 AM last night. The patient shakes his head and answers yes and no to some questions but otherwise has no complaints. There is some area of bruising noted to the right side of the head. Patient has a past medical history of COPD, CVA, dementia, insulin-dependent diabetes, GERD, hypertension, schizophrenia. He denies any fever, vision change, chest pain, abdominal pain, shortness of breath. Unknown if the patient was given any treatment prior to arrival today. ED Past Medical Hx - Past Medical History Previous Medical History?: Yes Hx Hypertension: Yes Hx CVA: Yes Hx Diabetes: Yes (Insulin Dependent) Hx GERD: Yes Hx Renal Disease: Yes Hx Psychiatric Treatment: Yes (depression, schizophrenia) Hx COPD: Yes Hx Dementia: Yes Additional medical history: shortness of breath, muscle weakness, abnormalities of gait and mobility, BPH,ENCEPHALOPATHY FX FEMUR KIDNEY FAILURE ANEMIA GLAUCOMA PSYCHOTIC DISORDER. hyperlipidemia. respiratory failure. cerebral infarction. dysphagia - Surgical History Past Surgical History?: Yes Additional Surgical History: G TUBE - Social History Smoking Status: Never Smoker Substance Use Type: None - Medications Home Medications: Home Medications Medication Instructions Recorded Confirmed Last Taken Type Citalopram Hydrobromide [celeXA] 30 mg PO DAILY 02/07/16 12/21/19 02/06/16 History Acetaminophen [Acetaminophen TAB] 650 mg PO Q4HR PRN 01/25/19 12/21/19 Unknown History AtorvaSTATin [Lipitor] 20 mg PO QHS 01/25/19 12/21/19 Unknown History Magnesium Oxide [Mag-Ox] 400 mg PO QDAY 01/25/19 12/21/19 Unknown History Quetiapine Fumarate [SEROquel] 50 mg PO TID 01/25/19 12/21/19 Unknown History Thiamine [Vitamin B-1] 100 mg PO DAILY 01/25/19 12/21/19 Unknown History Timolol 0.5% [Timoptic] 1 drop OU BID 01/25/19 12/21/19 Unknown History Lipase/Protease/Amylase [Pancreaze 1 each FEEDTUBE PRN PRN capsule 02/10/19 12/21/[address] 10,500 Unit] Simple Syrup 15 ml FEEDTUBE PRN PRN oral.liqd 02/10/19 12/21/19 Unknown Rx Ascorbic Acid [Vitamin C] 500 mg PO Q12H 11/06/19 12/21/19 Unknown History Bismuth Subsalicylate [Pepto 524 mg PO Q6HR PRN 11/06/19 12/21/19 Unknown History Bismol] Ferrous Sulfate [Ferrous Sulfate 450 mg PO BID 11/06/19 12/21/19 Unknown History Oral Liq 300 Mg/5 Ml] Latanoprost 0.005% 1 drop OP QHS 11/06/19 12/21/19 Unknown History Sodium Bicarbonate 650 mg FEEDTUBE PRN PRN 11/06/19 12/21/19 Unknown History lisinopriL [Zestril TAB] 10 mg PO QDAY 11/06/19 12/21/19 Unknown History Lansoprazole Solutab [Prevacid 30 mg FEEDTUBE BID tab.rapdis 11/12/19 12/21/19 Unknown Rx Solutab] Lansoprazole Solutab [Prevacid 30 mg FEEDTUBE BID 30 Days #60 01/04/20 Unknown Rx Solutab] tab.rapdis ED Review of Systems ROS: Stated complaint: POSS FALL Other details as noted in HPI Comment: All other systems reviewed and negative Constitutional: denies: chills, fever Eyes: denies: vision change Respiratory: denies: shortness of breath Cardiovascular: denies: chest pain Gastrointestinal: denies: abdominal pain, vomiting Musculoskeletal: denies: back pain, arthralgia Neurological: denies: headache, numbness Physical Exam - Physical Exam Vital Signs: Vital Signs 06/02/20 06/02/20 14:30 15:15 Temperature 98.4 F Pulse Rate 86 Respiratory 16 16 Rate Blood Pressure 112/78 [Right] O2 Sat by Pulse 96 Oximetry Physical Exam: GENERAL: The patient is well-developed well-nourished. HENT: Normocephalic. Atraumatic. Patient has moist mucous membranes. EYES: Pupils equal reactive to light bilaterally. NECK: Supple. Trachea is midline. CHEST/LUNGS: Clear to auscultation. There is no respiratory distress noted. HEART/CARDIOVASCULAR: Regular. There is no tachycardia. There is no murmur. ABDOMEN: Abdomen is soft, nontender. Patient has normal bowel sounds. SKIN: Skin is warm and dry. NEURO: The patient is awake and follows some commands. Withdraws from painful stimuli. MUSCULOSKELETAL: There is no tenderness or obvious deformity. ED Course Vital Signs 06/02/20 06/02/20 14:30 15:15 Temperature 98.4 F Pulse Rate 86 Respiratory 16 16 Rate Blood Pressure 112/78 [Right] O2 Sat by Pulse 96 Oximetry ED Medical Decision Making - Radiology Data Radiology results: report reviewed, image reviewed interpreted by me: Chest x-ray does not show any acute process. There are no pleural effusions, obvious pneumonia and there is no pneumothorax. No significant cardiomegaly. X-ray of the pelvis does not show any fracture, dislocation, or any acute process. CT head/brain wo con INDICATION / CLINICAL INFORMATION: 54 years Male; Fall. TECHNIQUE: Routine CT head without contrast. All CT scans at this location are performed using CT dose reduction for ALARA by means of automated exposure control. COMPARISON: None. FINDINGS: BRAIN / INTRACRANIAL CONTENTS: Ventricular catheter seen entering the calvarium via a posterior parietal approach, distal tip projecting towards the cistern of the velum interpositum. Encephalomalacia seen in the right frontal lobe region, near a small zhao hole in the right frontal bone. Old, branch SCA infarct seen laterally in the left cerebellar hemisphere. Old, small branch [employer] infarct suggested in the right parahippocampal region. There may be encephalomalacia or small arachnoid cyst near the foramen of Rubio on the left, near the anterior margin of the third ventricle - not significantly changed from prior exam. Otherwise, no acute hemorrhage, mass effect, midline shift, hydrocephalus, or acute, large territorial infarct. cerebral and cerebellar atrophy. There are areas of decreased attenuation in the white matter of the cerebral hemispheres. These are nonspecific findings and may be related to microangiopathy (hypertension, diabetes, atherosclerosis), given the patient's age. It might be difficult to evaluate for small areas of ischemia without diffusion imaging by MRI. CRANIOCERVICAL JUNCTION: No significant abnormality. ORBITS: No significant abnormality of visualized orbits. SINUSES / MASTOIDS: No significant abnormality in the visualized paranasal sinuses or mastoid air cells. ADDITIONAL FINDINGS: Minimal atherosclerotic disease is seen in the anterior and posterior circulation. IMPRESSION: 1. No focal intra-axial mass, hemorrhage, hydrocephalus, or acute, large territorial infarct. CT CERVICAL SPINE WITHOUT CONTRAST INDICATION / CLINICAL INFORMATION: Trauma. Patient fell sustaining neck injury. Neck pain. TECHNIQUE: Axial CT images were obtained through the cervical spine. Sagittal and coronal reformatted images were produced. All CT scans at this location are performed using CT dose reduction for ALARA by means of automated exposure control. COMPARISON: CT cervical spine 04/04/2020 FINDINGS: ALIGNMENT: No significant abnormality. No indication of traumatic subluxation. VERTEBRAE: No indication of fracture. Widespread of degenerative changes are noted. Incidental note is made of developmental fusion at the T2-T3 level. There is absence of the intervertebral disc. Fusion across the facet joints is noted bilaterally. Fusion across the facet joints is also suspected at the T3-4 level. DISC SPACES: Loss of disc height is noted at the C2-3 level. Disc height is fairly well maintained elsewhere. INDIVIDUAL LEVEL ANALYSIS: C2-3: Advanced loss of disc height is noted. Anterior osteophyte formation is a prominent finding. Mild posterior osteophyte is observed. Central spinal canal and neuroforamina are adequately maintained. C3-4:No abnormality. C4-5: Prominent anterior osteophyte lateralizes to the right. Mild facet arthritic changes are noted. Central spinal canal is adequately maintained. Mild bilateral foraminal narrowing is evident at the C5 nerve root level. C5-6: Anterior osteophyte formation is noted. Mild right-sided facet arthropathy is observed. Central spinal canal and neuroforamina are adequate in size. C6-7: Anterior osteophyte formation is demonstrated. Mild bilateral facet arthropathy is noted. Central spinal canal and neuroforamina are adequate in size. C7-T1: No significant abnormality. CRANIOCERVICAL JUNCTION:No significant abnormality. SPINAL CANAL: Central spinal canal is adequately maintained throughout. PARASPINAL SOFT TISSUES: No significant abnormality. ADDITIONAL FINDINGS: None. LUNG APICES: No significant abnormality of visualized lungs. IMPRESSION: 1. No indication of fracture or traumatic subluxation. 2. Widespread cervical spondylosis as described level by level above. There is no indication of central canal stenosis or significant neuroforaminal narrowing. - Medical Decision Making This patient was sent in from his nursing facility with a complaint that the patient had a fall at about 2 AM last night. Unknown if this was witnessed. The patient presents with some bruising to the right side of the head/scalp but otherwise no obvious deformity. CT scan of the head did not show any bleed, shift, mass, ischemia, or any other acute process. CT of the cervical spine does not show any fracture, subluxation, or any acute process. X-rays of the chest and pelvis also did not show any fractures, dislocation, pneumothorax, pneumonia, or any other acute process. Patient's vital signs have been reassuring throughout his ED course. He will be discharged back to [facility] to follow-up with his primary care physician and has been given instructions to return to the emergency department with any worsening of his symptoms or with any acute distress. Critical Care Time: No Critical care attestation.: If time is entered above; I have spent that time in minutes in the direct care of this critically ill patient, excluding procedure time. ED Disposition Clinical Impression: Debility Fall Qualifiers: Encounter type: initial encounter Qualified Code(s): W19.XXXA - Unspecified fall, initial encounter Closed head injury Qualifiers: Encounter type: initial encounter Qualified Code(s): S09.90XA - Unspecified injury of head, initial encounter Disposition: DC-01 TO HOME OR SELFCARE Is pt being admited?: No Condition: Stable Instructions: Minor Head Injury (ED), Fall Prevention (ED) Additional Instructions: Please follow-up with the primary care physician in the next few days. Return to the emergency department with any worsening of your symptoms or with any acute distress. Referrals: RAISA POE MD [Primary Care Provider] - 2-3 Days Time of Disposition: 16:41
--- NOTE | 2020-06-02 15:59 | XRay Report ---
CHEST 1 VIEW 06/02/2020 2:53 PM INDICATION / CLINICAL INFORMATION: trauma. COMPARISON: 12/20/2019 FINDINGS: SUPPORT DEVICES: None. HEART / MEDIASTINUM: No significant abnormality. LUNGS / PLEURA: No significant pulmonary or pleural abnormality. No pneumothorax. ADDITIONAL FINDINGS: No significant additional findings. No appreciable rib fractures IMPRESSION: 1. No acute findings. Signer Name: Dalton Moncada MD Signed: 06/02/2020 3:54 PM Workstation Name: [id number]
--- NOTE | 2020-06-02 16:04 | XRay Report ---
PELVIS 2 VIEWS INDICATION / CLINICAL INFORMATION: Pelvic pain/injury after fall. COMPARISON: None available. FINDINGS: BONES and JOINT(S): No acute fracture or subluxation. Mild osteoarthritis of the left hip. The bones are demineralized. Unremarkable right hip arthroplasty. SOFT TISSUES: No acute abnormality. A AREA FORESTER shunt catheter terminates over the left iliac bone. ADDITIONAL FINDINGS: None. IMPRESSION: 1. No acute findings. Signer Name: Joel Camacho MD Signed: 06/02/2020 4:00 PM Workstation Name: [id number]
--- NOTE | 2020-06-02 16:22 | Cat Scan Report ---
CT head/brain wo con INDICATION / CLINICAL INFORMATION: 54 years Male; Fall. TECHNIQUE: Routine CT head without contrast. All CT scans at this location are performed using CT dos e reduction for ALARA by means of automated exposure control. COMPARISON: None. FINDINGS: BRAIN / INTRACRANIAL CONTENTS: Ventricular catheter seen entering the calvarium via a posterior parie shantel approach, distal tip projecting towards the cistern of the velum interpositum. Encephalomalacia seen in the right frontal lobe region, near a small zhao hole in the right frontal b one. Old, branch SCA infarct seen laterally in the left cerebellar hemisphere. Old, small branch [employer]UN[employer]FIG[employer] infarct suggested in the right parahippocampal region. There may be encephalomalacia or small arachnoid cyst near the foramen of Rubio on the left, near th e anterior margin of the third ventricle - not significantly changed from prior exam. Otherwise, no acute hemorrhage, mass effect, midline shift, hydrocephalus, or acute, large territori al infarct. cerebral and cerebellar atrophy. There are areas of decreased attenuation in the white matter of the cerebral hemispheres. These are n onspecific findings and may be related to microangiopathy (hypertension, diabetes, atherosclerosis), given the patient's age. It might be difficult to evaluate for small areas of ischemia without diffus ion imaging by MRI. CRANIOCERVICAL JUNCTION: No significant abnormality. ORBITS: No significant abnormality of visualized orbits. SINUSES / MASTOIDS: No significant abnormality in the visualized paranasal sinuses or mastoid air daya ls. ADDITIONAL FINDINGS: Minimal atherosclerotic disease is seen in the anterior and posterior circulatio n. IMPRESSION: 1. No focal intra-axial mass, hemorrhage, hydrocephalus, or acute, large territorial infarct. Signer Name: Giovany Ritter MD, III Signed: 06/02/2020 4:18 PM Workstation Name: [email or web address]
--- NOTE | 2020-06-02 16:35 | Cat Scan Report ---
CT CERVICAL SPINE WITHOUT CONTRAST INDICATION / CLINICAL INFORMATION: Trauma. Patient fell sustaining neck injury. Neck pain. TECHNIQUE: Axial CT images were obtained through the cervical spine. Sagittal and coronal reformatted images wer e produced. All CT scans at this location are performed using CT dose reduction for ALARA by means of automated exposure control. COMPARISON: CT cervical spine 04/04/2020 FINDINGS: ALIGNMENT: No significant abnormality. No indication of traumatic subluxation. VERTEBRAE: No indication of fracture. Widespread of degenerative changes are noted. Incidental note i s made of developmental fusion at the T2-T3 level. There is absence of the intervertebral disc. Fusio n across the facet joints is noted bilaterally. Fusion across the facet joints is also suspected at t he T3-4 level. DISC SPACES: Loss of disc height is noted at the C2-3 level. Disc height is fairly well maintained el sewhere. INDIVIDUAL LEVEL ANALYSIS: C2-3: Advanced loss of disc height is noted. Anterior osteophyte formation is a prominent finding. Mi ld posterior osteophyte is observed. Central spinal canal and neuroforamina are adequately maintained . C3-4:No abnormality. C4-5: Prominent anterior osteophyte lateralizes to the right. Mild facet arthritic changes are noted. Central spinal canal is adequately maintained. Mild bilateral foraminal narrowing is evident at the C5 nerve root level. C5-6: Anterior osteophyte formation is noted. Mild right-sided facet arthropathy is observed. Central spinal canal and neuroforamina are adequate in size. C6-7: Anterior osteophyte formation is demonstrated. Mild bilateral facet arthropathy is noted. Centr al spinal canal and neuroforamina are adequate in size. C7-T1: No significant abnormality. CRANIOCERVICAL JUNCTION:No significant abnormality. SPINAL CANAL: Central spinal canal is adequately maintained throughout. PARASPINAL SOFT TISSUES: No significant abnormality. ADDITIONAL FINDINGS: None. LUNG APICES: No significant abnormality of visualized lungs. IMPRESSION: 1. No indication of fracture or traumatic subluxation. 2. Widespread cervical spondylosis as described level by level above. There is no indication of centr al canal stenosis or significant neuroforaminal narrowing. Signer Name: Elmo Do MD Signed: 06/02/2020 4:30 PM Workstation Name: [email or web address]
[2020-06-02 17:55] VITALS: BP 123/84
== END 2020-06-02 21:02 | disposition home or self-care (01) ==
LOC: ED 14:15
DX: S09.90XA Unspecified injury of head, initial encounter (principal); R53.81 Other malaise; I10 Essential (primary) hypertension; E11.9 Type 2 diabetes mellitus without complications; K21.9 Gastro-esophageal reflux disease without esophagitis; F32.9 Major depressive disorder, single episode, unspecified; F20.9 Schizophrenia, unspecified; J44.9 Chronic obstructive pulmonary disease, unspecified; F03.90 Unspecified dementia, unspecified severity, without behavioral disturbance, psychotic disturbance, mood disturbance, and anxiety; Z86.73 Personal history of transient ischemic attack (TIA), and cerebral infarction without residual deficits; Z98.890 Other specified postprocedural states; Z79.899 Other long term (current) drug therapy; W19.XXXA Unspecified fall, initial encounter; Y93.89 Activity, other specified; Y92.89 Other specified places as the place of occurrence of the external cause; Y99.8 Other external cause status
CPT/HCPCS: 70450; 71045; 72125; 72170

== ENCOUNTER 2020-11-28 02:39 | Emergency (ER) | payer MEDICAID ==
--- NOTE | 2020-11-28 03:09 | Emergency Department Report ---
HPI - General Chief Complaint: Dyspnea/Respdistress Time Seen by Provider: 11/28/20 02:43 - HPI HPI: This is a 55-year-old male who presents to the emergency department via EMS from his [facility] facility with the complaint of respiratory distress. The patient was found to be 56% oxygen saturation on room air. He was placed on a nonrebreather and went up into the mid 90s. Patient was also found to have a blood glucose level of 528 by Accu-Chek. The patient has a history of COPD, CVA, dementia, insulin-dependent diabetes, GERD, hypertension, encephalopathy. The patient was recently admitted here towards the end of September for a GI bleed and was found to be positive for COVID-19 at that time. Patient is nonverbal at baseline. ED Past Medical Hx - Past Medical History Previous Medical History?: Yes Hx Hypertension: Yes Hx CVA: Yes Hx Diabetes: Yes (Insulin Dependent) Hx GERD: Yes Hx Renal Disease: Yes Hx Psychiatric Treatment: Yes (depression, schizophrenia) Hx COPD: Yes Hx Dementia: Yes Additional medical history: Muscle weakness, abnormalities of gait and mobility, BPH,ENCEPHALOPATHY FX FEMUR KIDNEY FAILURE ANEMIA GLAUCOMA PSYCHOTIC DISORDER - Surgical History Past Surgical History?: Yes Additional Surgical History: G TUBE - Social History Smoking Status: Unknown if ever smoked - Medications Home Medications: Home Medications Medication Instructions Recorded Confirmed Last Taken Type Citalopram Hydrobromide [celeXA] 30 mg PO DAILY 02/07/16 10/19/20 02/06/16 History Acetaminophen [Acetaminophen TAB] 650 mg PO Q4HR PRN 01/25/19 10/19/20 Unknown History AtorvaSTATin [Lipitor] 20 mg PO QHS 01/25/19 10/19/20 Unknown History Magnesium Oxide [Mag-Ox] 400 mg PO QDAY 01/25/19 10/19/20 Unknown History Quetiapine Fumarate [SEROquel] 50 mg PO TID 01/25/19 10/19/20 Unknown History Thiamine [Vitamin B-1] 100 mg PO DAILY 01/25/19 10/19/20 Unknown History Timolol 0.5% [Timoptic] 1 drop OU BID 01/25/19 10/19/20 Unknown History Lipase/Protease/Amylase [Pancreaze 1 each FEEDTUBE PRN PRN capsule 02/10/19 10/19/20 Unknown Rx 10,500 Unit] Simple Syrup 15 ml FEEDTUBE PRN PRN oral.liqd 02/10/19 10/19/20 Unknown Rx Ascorbic Acid [Vitamin C] 500 mg PO Q12H 11/06/19 10/19/20 Unknown History Bismuth Subsalicylate [Pepto 524 mg PO Q6HR PRN 11/06/19 10/19/20 Unknown History Bismol] Ferrous Sulfate [Ferrous Sulfate 450 mg PO BID 11/06/19 10/19/20 Unknown History Oral Liq 300 Mg/5 Ml] Latanoprost 0.005% 1 drop OP QHS 11/06/19 10/19/20 Unknown History Sodium Bicarbonate 650 mg FEEDTUBE PRN PRN 11/06/19 10/19/20 Unknown History lisinopriL [Zestril TAB] 10 mg PO QDAY 11/06/19 10/19/20 Unknown History Lansoprazole Solutab [Prevacid 30 mg FEEDTUBE BID tab.rapdis 11/12/19 10/19/20 Unknown Rx Solutab] Lansoprazole Solutab [Prevacid 30 mg FEEDTUBE BID 30 Days #60 01/04/20 10/19/20 Unknown Rx Solutab] tab.rapdis QUEtiapine [SEROquel] 50 mg PO TID tablet 10/21/20 Unknown Rx ED Review of Systems ROS: Stated complaint: ALVARO Other details as noted in HPI Comment: Unobtainable due to pts medical conditions Physical Exam - Physical Exam Physical Exam: GENERAL: The patient is ill-appearing. HENT: Normocephalic. Atraumatic. Patient has moist mucous membranes. EYES: Pupils equal reactive to light bilaterally. NECK: Supple. Trachea is midline. CHEST/LUNGS: Clear to auscultation. There is mild to moderate tachypnea. HEART/CARDIOVASCULAR: Regular. There is mild to moderate tachycardia. ABDOMEN: Abdomen is soft, nontender. Patient has normal bowel sounds. PEG tube in place. SKIN: Skin is warm and dry. NEURO: Patient is awake but is nonverbal and does not follow commands. MUSCULOSKELETAL: There is no tenderness or obvious deformity. - ABG Interpretation Ph: 7.212 PCO2: 24 PO2: 232 Bicarbonate: 9.7 Interpretation: metabolic acidosis - Intubation Time Out Performed: No Sedative: none Laryngoscope: other ([place] scope) Size: 4 ET Tube Size: 7.5 Tube Secured Depth (cm): 22 Tube Secured Location: teeth Tube Placement Confirmation: visualized tube passing t, equal breath sounds bilat, confirmation by capnometr Additional Comments: There was a moderate amount of coffee-ground appearing secretions in the oropharynx during intubation. ED Medical Decision Making - Lab Data Result diagrams: 11/28/20 03:11 11/28/20 03:11 Lab Results 11/28/20 11/28/20 11/28/20 Range/Units 03:11 03:11 03:11 WBC 16.7 H (4.5-11.0) K/mm3 RBC 2.47 L (3.65-5.03) M/mm3 Hgb 6.2 L (11.8-15.2) gm/dl Hct 22.4 L (35.5-45.6) % MCV 90 (84-94) fl MCH 25 L (28-32) pg MCHC 28 L (32-34) % RDW 19.7 H (13.2-15.2) % Plt Count 403 (140-440) K/mm3 Lymph % (Auto) 12.3 L (13.4-35.0) % [place] % (Auto) 6.9 (0.0-7.3) % Eos % (Auto) 0.9 (0.0-4.3) % Baso % (Auto) 0.5 (0.0-1.8) % Lymph # (Auto) 2.1 (1.2-5.4) K/mm3 [place] # (Auto) 1.2 H (0.0-0.8) K/mm3 Eos # (Auto) 0.1 (0.0-0.4) K/mm3 Baso # (Auto) 0.1 (0.0-0.1) K/mm3 Seg Neutrophils % 79.4 H (40.0-70.0) % Seg Neutrophils # 13.2 H (1.8-7.7) K/mm3 PT 16.1 H (12.2-14.9) Sec. INR 1.29 H (0.87-1.13) APTT 25.2 (24.2-36.6) Sec. D-Dimer 909.73 H (0-234) ng/mlDDU Sodium 144 (137-145) mmol/L Potassium 5.9 H (3.6-5.0) mmol/L Chloride 103.4 (98-107) mmol/L Carbon Dioxide 12 L (22-30) mmol/L Anion Gap 35 mmol/L BUN 92 H (9-20) mg/dL Creatinine 2.6 H (0.8-1.3) mg/dL Estimated GFR 31 ml/min BUN/Creatinine Ratio 35 % Glucose 518 H* (75-100) mg/dL Calcium 8.5 (8.4-10.2) mg/dL Total Bilirubin 0.20 (0.1-1.2) mg/dL AST 25 (5-40) units/L ALT 20 (7-56) units/L Alkaline Phosphatase 88 (35-129) units/L Troponin T 0.111 H* (0.00-0.029) ng/mL NT-Pro-B Natriuret Pep (0-900) pg/mL Total Protein 5.7 L (6.3-8.2) g/dL Albumin 2.9 L (3.9-5) g/dL Albumin/Globulin Ratio 1.0 % Triglycerides 115 (2-149) mg/dL Cholesterol 87 (50-199) mg/dL LDL Cholesterol Direct 58 (50-130) mg/dL HDL Cholesterol 23 L (40-59) mg/dL Cholesterol/HDL Ratio 3.78 % 03/02/21 Range/Units 03:11 WBC (4.5-11.0) K/mm3 RBC (3.65-5.03) M/mm3 Hgb (11.8-15.2) gm/dl Hct (35.5-45.6) % MCV (84-94) fl MCH (28-32) pg MCHC (32-34) % RDW (13.2-15.2) % Plt Count (140-440) K/mm3 Lymph % (Auto) (13.4-35.0) % [place] % (Auto) (0.0-7.3) % Eos % (Auto) (0.0-4.3) % Baso % (Auto) (0.0-1.8) % Lymph # (Auto) (1.2-5.4) K/mm3 [place] # (Auto) (0.0-0.8) K/mm3 Eos # (Auto) (0.0-0.4) K/mm3 Baso # (Auto) (0.0-0.1) K/mm3 Seg Neutrophils % (40.0-70.0) % Seg Neutrophils # (1.8-7.7) K/mm3 PT (12.2-14.9) Sec. INR (0.87-1.13) APTT (24.2-36.6) Sec. D-Dimer (0-234) ng/mlDDU Sodium (137-145) mmol/L Potassium (3.6-5.0) mmol/L Chloride (98-107) mmol/L Carbon Dioxide (22-30) mmol/L Anion Gap mmol/L BUN (9-20) mg/dL Creatinine (0.8-1.3) mg/dL Estimated GFR ml/min BUN/Creatinine Ratio % Glucose (75-100) mg/dL Calcium (8.4-10.2) mg/dL Total Bilirubin (0.1-1.2) mg/dL AST (5-40) units/L ALT (7-56) units/L Alkaline Phosphatase (35-129) units/L Troponin T (0.00-0.029) ng/mL NT-Pro-B Natriuret Pep 242.6 (0-900) pg/mL Total Protein (6.3-8.2) g/dL Albumin (3.9-5) g/dL Albumin/Globulin Ratio % Triglycerides (2-149) mg/dL Cholesterol (50-199) mg/dL LDL Cholesterol Direct (50-130) mg/dL HDL Cholesterol (40-59) mg/dL Cholesterol/HDL Ratio % - Radiology Data Radiology results: image reviewed interpreted by me: Chest x-ray does not show any acute process. There are no pleural effusions, obvious pneumonia and there is no pneumothorax. No significant cardiomegaly. - Medical Decision Making This patient [facility] after the patient was found to have shortness of breath and respiratory distress. Initially he had a room air pulse ox in the mid 50s. EMS placed him on a nonrebreather and he went up into the mid to high 90s. He was also found to have a blood glucose level of about 550 on Accu-Chek. On arrival, the patient was brought to room #35 where he remained on the nonrebreather with a pulse ox seen as high as 99%. With the nonrebreather at this time the patient only had some mild to moderate tachypnea. Patient was placed on the monitor. Orders were placed for labs, chest x-ray, EKG and an ABG. Patient had a chest x-ray that did not show any pneumonia, pleural effusions, pneumothorax, or any other acute process. The patient's blood was drawn and sent to the lab. Respiratory therapy came to do an ABG. The respiratory therapist came back to titrate down the patient's oxygen secondary to a PO2 of 232 seen on the ABG. At that time the patient appeared to decompensate with significant bradycardia and bradypnea. Patient did not have a palpable pulse so ACLS protocol was initiated. I intubated the patient using the glide scope. The patient had a large amount of coffee-ground appearing secretions in the oropharynx. The patient received bag valve ventilation through the endotracheal tube. He was getting chest compressions. For the first 3 rounds, the patient appeared in asystole. He was given 3 doses of epinephrine, a dose of sodium bicarbonate, and the patient was given a dose of calcium in case there was hyperkalemia associated with his hyperglycemia. For the fourth and fifth round of ACLS the patient appeared in PEA. During the pulse and rhythm check after the fifth round, the patient appeared to go into polymorphic V. tach. He was given a 200 J defibrillation. Chest compressions were continued. The patient received magnesium and amiodarone, on top of the epinephrine. During the next pulse and rhythm check, the patient once again appeared to be in V. tach and was given another 200 J defibrillation. During the next rhythm check the patient appeared in very slow PEA. Overall the patient received 7 doses of epinephrine, 2 doses of sodium bicarbonate, 1 amp of calcium, 1 g of magnesium, 300 mg of amiodarone. He had 2 different defibrillations of 200 J. There was no return of spontaneous circulation. I took the bedside ultrasound and looked at the patient's heart but there was no movement or squeeze. Time of was called at 4:09 AM. I did not receive the laboratory results until after the patient . He appears to have significant anemia with a hemoglobin of 6.2. There is a leukocytosis of about 17,000. Patient has a blood sugar greater than 500 with an elevated anion gap. There is hyperkalemia with potassium of 5.9. Patient has acute kidney injury with a creatinine of 2.6. There is an elevated troponin of 0.111. Patient's mother, Elena Dent, was notified of the patient's expiration. The patient's mother is in her 70s, lives alone, is actively getting dialyzed, and is unable to come to the emergency department for [id number] notification. I offered to notify the patient's brother, Sekou, but the patient's mother says that she wanted to do so. Critical Care Time: Yes Critical care time in (mins) excluding proc time.: 35 Critical care attestation.: If time is entered above; I have spent that time in minutes in the direct care of this critically ill patient, excluding procedure time. Critical care time was spent on this patient in doing his initial evaluation, multiple reevaluations, ordering of labs and imaging, supervision of ACLS protocol. This does not include the time spent doing the intubation procedure. Critical Care Time: 35 minutes. ED Disposition Clinical Impression: Cardiac arrest, Elevated troponin, Hyperkalemia Acute respiratory failure Qualifiers: Respiratory failure complication: unspecified whether with hypoxia or hypercapnia Qualified Code(s): J96.00 - Acute respiratory failure, unspecified whether with hypoxia or hypercapnia Uncontrolled diabetes mellitus Qualifiers: Diabetes mellitus type: type 1 Glycemic state: with hyperglycemia Qualified Code(s): E10.65 - Type 1 diabetes mellitus with hyperglycemia Acute renal failure Qualifiers: Acute renal failure type: unspecified Qualified Code(s): N17.9 - Acute kidney failure, unspecified Disposition: DC-20 Is pt being admited?: No Instructions: Diabetes Mellitus Type 2 in Adults (ED) Time of Disposition: 05:38
--- NOTE | 2020-11-28 03:38 | XRay Report ---
CHEST 1 VIEW 11/28/2020 2:32 AM INDICATION / CLINICAL INFORMATION: Shortness of breath. COMPARISON: 10/17/2020 FINDINGS: SUPPORT DEVICES: None. HEART / MEDIASTINUM: No significant abnormality. LUNGS / PLEURA: No significant pulmonary or pleural abnormality. No pneumothorax. ADDITIONAL FINDINGS: No significant additional findings. IMPRESSION: 1. No acute findings. Signer Name: Dalton Moncada MD Signed: 11/28/2020 3:34 AM Workstation Name: [employer]
[2020-11-28] MEDS ORDERED: ADENOSINE 6 MG/2 ML INJ ONE (03:45)
[2020-11-28] MEDS ORDERED: SODIUM BICARB 8.4% 50 MEQ/50 ML SYRINGE IV ONE (03:45)
[2020-11-28] MEDS ORDERED: ATROPINE 0.1% (1 MG/10 ML) CARDIAC SYRINGE ONE (03:45)
[2020-11-28] MEDS ORDERED: MAGNESIUM SULFATE 1 GM/2ML (4 MEQ/1ML) INJ ONE (03:45)
[2020-11-28] MEDS ORDERED: AMIODARONE 150 MG/3 ML INJ IV ONE (03:45)
[2020-11-28] MEDS ORDERED: EPINEPHrine 1 MG/10 ML SYRINGE ONE (03:45)
[2020-11-28] MEDS ORDERED: CALCIUM CHLORIDE 1,000 MG/10 ML SYRINGE IV ONE (03:45)
[2020-11-28 03:47] LABS: Basophils # (Auto) 0.1 K/mm3 (0.0-0.1); Basophils % (Auto) 0.5 % (0.0-1.8); Eosinophils # (Auto) 0.1 K/mm3 (0.0-0.4); Eosinophils % (Auto) 0.9 % (0.0-4.3); Lymphocytes # (Auto) 2.1 K/mm3 (1.2-5.4); Lymphocytes % (Auto) 12.3 % (13.4-35.0); Mean Corpuscular HGB Conc 28 % (32-34); Mean Corpuscular Volume 90 fl (84-94); Monocytes # (Auto) 1.2 K/mm3 (0.0-0.8); Monocytes % (Auto) 6.9 % (0.0-7.3); Platelet Count 403 K/mm3 (140-440); Red Blood Count 2.47 M/mm3 (3.65-5.03); Red Cell Distribution Width 19.7 % (13.2-15.2)
[2020-11-28 03:50] LABS: Hematocrit 22.4 % (35.5-45.6); Hemoglobin 6.2 gm/dl (11.8-15.2)
[2020-11-28 03:58] LABS: INR 1.29 (0.87-1.13)
[2020-11-28 03:59] LABS: Partial Thromboplastin Time 25.2 Sec. (24.2-36.6)
[2020-11-28 04:14] LABS: Albumin 2.9 g/dL (3.9-5); Calcium 8.5 mg/dL (8.4-10.2)
[2020-11-28 04:28] VITALS: BP 147/103
[2020-11-28 04:52] LABS: Chol/HDL Ratio 3.78 %
== END 2020-11-28 07:00 ==
LOC: ED 02:39
DX: I46.9 Cardiac arrest, cause unspecified (principal); J96.00 Acute respiratory failure, unspecified whether with hypoxia or hypercapnia; E10.65 Type 1 diabetes mellitus with hyperglycemia; N17.9 Acute kidney failure, unspecified; R77.8 Other specified abnormalities of plasma proteins; E87.5 Hyperkalemia; I10 Essential (primary) hypertension; K21.9 Gastro-esophageal reflux disease without esophagitis; F25.1 Schizoaffective disorder, depressive type; F03.90 Unspecified dementia, unspecified severity, without behavioral disturbance, psychotic disturbance, mood disturbance, and anxiety; J44.9 Chronic obstructive pulmonary disease, unspecified; Z98.890 Other specified postprocedural states; Z86.73 Personal history of transient ischemic attack (TIA), and cerebral infarction without residual deficits; Z79.899 Other long term (current) drug therapy
CPT/HCPCS: 31500; 36415; 71045; 80053; 80061; 82805; 83880; 84484; 85025; 85379; 85610; 85730; 99291; J0153; J0171; J0282; J0461; J3475